=== PATIENT | female | born 1940 | race Caucasian/White ===

== ENCOUNTER → 2016-08-15 | Outpatient (CLI) | payer MEDICARE ==
--- NOTE | 2016-08-15 14:56 | XR ---
EXAMINATION TYPE: XR chest 2V DATE OF EXAM: 08/15/2016 2:42 PM HISTORY: J20.9 Acute bronchitis. REFERENCE: Previous study dated 01/09/2016. FINDINGS: There is a questionable early infiltrate in the right lower lobe. The lungs are otherwise c lear. Pleural spaces are clear. Heart size is upper limits of normal. IMPRESSION: 1. BORDERLINE CARDIOMEGALY. 2. EARLY INFILTRATE, RIGHT LOWER LOBE.
== END | disposition home or self-care (01) ==
LOC: RADXRMAIN 14:28
PROVIDERS: ATTEND Family Medicine
DX: R91.8 Other nonspecific abnormal finding of lung field (principal); I51.7 Cardiomegaly
CPT/HCPCS: 71020

== ENCOUNTER 2016-08-21 15:47 | Inpatient (IN) | payer MEDICARE ==
[2016-08-21] MEDS ORDERED: IPRATROPIUM 0.5 MG/2.5 ML NEBU INHALATION STA (16:35)
[2016-08-21] MEDS ORDERED: ALBUTEROL NEBULIZED 2.5 MG/3 ML INHALATION STA (16:35)
[2016-08-21] MEDS ORDERED: SODIUM CHLORIDE 0.9% 1,000 ML IV STA ×2 (16:35)
--- NOTE | 2016-08-21 16:38 | ED ---
General Adult HPI <Nathaniel Yuan - Last Filed: 08/21/16 19:14> - General Source: patient, RN notes reviewed, old records reviewed Mode of arrival: ambulatory Limitations: no limitations <Ector Gray - Last Filed: 08/22/16 07:48> - General Chief complaint: Shortness of Breath Stated complaint: Dehydration/sob Time Seen by Provider: 08/21/16 16:29 - History of Present Illness Initial comments: This is a 75-year-old female here for evaluation. This patient comes in the ER for evaluation shortness of cough congestion chest pain. Patient was seen in outpatient basis for similar symptoms twice, first time she got worse the second time she was diagnosed with pneumonia and continue to get worse. Patient is still feeling short of breath with chest pain. Patient has no fevers no known congestion, but just increasing shortness of breath not feeling well and chest pain. (Ector Gray) - Related Data Home Medications Medication Instructions Recorded Confirmed Aspirin 81 mg PO DAILY 11/20/13 08/21/16 Metoprolol Succinate [Toprol XL] 25 mg PO DAILY 11/20/13 08/21/16 Temazepam [Restoril] 30 mg PO HS PRN 11/20/13 08/21/16 ALPRAZolam [Xanax] 0.5 mg PO DAILY PRN 03/19/15 08/21/16 Cholecalciferol [Vitamin D3] 1,000 unit PO DAILY 03/19/15 08/21/16 Vit C/E/Zn/Coppr/Lutein/Zeaxan 1 cap PO DAILY 03/19/15 08/21/16 [Preservision Areds 2 Softgel] Albuterol Sulfate [Proair Hfa] 2 puff INHALATION RT-Q6H PRN 03/06/16 08/21/16 Ibuprofen [Motrin] 800 mg PO Q8H PRN 08/21/16 08/21/16 sitaGLIPtin PHOS/metFORMIN HCL 1 tab PO BID 08/21/16 08/21/16 [Janumet 50-500 mg Tablet] Allergies Allergy/AdvReac Type Severity Reaction Status Date / Time shellfish derived [Shellfish] Allergy Severe Anaphylaxis Verified 08/21/16 16:43 morphine Allergy Intermediate Rash/Hives Verified 08/21/16 16:43 cefuroxime axetil Allergy Unknown Verified 08/21/16 16:43 [From Ceftin] codeine Allergy Unknown Verified 08/21/16 16:43 erythromycin base Allergy Unknown Verified 08/21/16 16:43 [From E-Mycin] fentanyl Allergy Unknown Verified 08/21/16 16:43 hydrocodone bitartrate Allergy Unknown Verified 08/21/16 16:43 [From Lortab] lisinopril Allergy anxiety Verified 08/21/16 16:43 meperidine HCl [From Demerol] Allergy Unknown Verified 08/21/16 16:43 milk Allergy Unknown Verified 08/21/16 16:43 oxycodone HCl [From Percocet] Allergy Unknown Verified 08/21/16 16:43 SEAFOOD Allergy Severe Anaphylaxis Uncoded 08/21/16 15:54 Review of Systems ROS Other: All systems not noted in ROS Statement are negative. <Nathaniel Yuan - Last Filed: 08/21/16 19:14> ROS Other: All systems not noted in ROS Statement are negative. <Ector Gray - Last Filed: 08/22/16 07:48> ROS Statement: Those systems with pertinent positive or pertinent negative responses have been documented in the HPI. Past Medical History Past Medical History: Diabetes Mellitus, Hypertension Additional Past Medical History / Comment(s): NEURALGIA, leaky heart valves, heart murmer, SOB, hiatal hernia, arthritis, shingles History of Any Multi-Drug Resistant Organisms: None Reported Past Surgical History: Back Surgery, Heart Catheterization Additional Past Surgical History / Comment(s): mult back surgeries-back and neck fusions, marlene cataracts Past Anesthesia/Blood Transfusion Reactions: Previous Problems w/ Anesthesia Additional Past Anesthesia/Blood Transfusion Reaction / Comment(s): stopped breathing during back surgery from being "over medicated" - had to get narcan Past Psychological History: Anxiety Smoking Status: Former smoker Past Alcohol Use History: None Reported Past Drug Use History: None Reported - Past Family History Brother(s) Family Medical History: Cancer <Ector Gray - Last Filed: 08/22/16 07:48> General Exam Limitations: no limitations General appearance: alert, in no apparent distress Head exam: Present: atraumatic, normocephalic, normal inspection Eye exam: Present: normal appearance, PERRL, EOMI. Absent: scleral icterus, conjunctival injection, periorbital swelling ENT exam: Present: normal exam, mucous membranes moist Neck exam: Present: normal inspection. Absent: tenderness, meningismus, lymphadenopathy Respiratory exam: Present: normal lung sounds bilaterally. Absent: respiratory distress, wheezes, rales, rhonchi, stridor Cardiovascular Exam: Present: regular rate, normal rhythm, normal heart sounds. Absent: systolic murmur, diastolic murmur, rubs, gallop, clicks GI/Abdominal exam: Present: soft, normal bowel sounds. Absent: distended, tenderness, guarding, rebound, rigid Extremities exam: Present: normal inspection, full ROM, normal capillary refill. Absent: tenderness, pedal edema, joint swelling, calf tenderness Back exam: Present: normal inspection Neurological exam: Present: alert, oriented X3, CN II-XII intact Psychiatric exam: Present: normal affect, normal mood Skin exam: Present: warm, dry, intact, normal color. Absent: rash <Ector Gray - Last Filed: 08/22/16 07:48> Course <Nathaniel Yuan - Last Filed: 08/21/16 19:14> <Ector Gray - Last Filed: 08/22/16 07:48> Vital Signs 08/21/16 08/21/16 08/21/16 15:49 16:42 17:05 Temperature 97.5 F L Pulse Rate 56 L 102 H Respiratory 18 18 Rate Blood Pressure 109/56 O2 Sat by Pulse 97 Oximetry 08/21/16 08/21/16 08/21/16 17:20 17:44 19:27 Temperature Pulse Rate 100 102 H 103 H Respiratory 16 Rate Blood Pressure 142/58 O2 Sat by Pulse 95 Oximetry - Reevaluation(s) Reevaluation #1: 08/21/16 18:30 Patient's medical record is reviewed including x-ray Patient is having improvement in symptoms and control going. Treatment (Ector Gray) EKG Findings - EKG Comments: EKG Findings:: EKG shows normal sinus rhythm a monitor, VA 146, QRS 78, QTC 461 <Ector Gray - Last Filed: 08/22/16 07:48> Medical Decision Making - Lab Data Result diagrams: 08/21/16 16:40 08/21/16 16:40 <Nathaniel Yuan - Last Filed: 08/21/16 19:14> - Lab Data Result diagrams: 08/21/16 16:40 08/21/16 16:40 - Radiology Data Radiology results: report reviewed (CT chest is positive for pneumonia), image reviewed <Ector Gray - Last Filed: 08/22/16 07:48> - Medical Decision Making 75 year for outpatient field treatment of pneumonia, will be started on broad- spectrum antibiotics, CT negative for PE, patient is in no acute respiratory distress. (Ector Gray) - Lab Data Lab Results 08/21/16 08/21/16 08/21/16 Range/Units 16:40 16:40 16:40 WBC 7.3 (3.8-10.6) k/uL RBC 5.48 H (3.80-5.40) m/uL Hgb 16.3 H (11.4-16.0) gm/dL Hct 49.3 H (34.0-46.0) % MCV 89.9 (80.0-100.0) fL MCH 29.8 (25.0-35.0) pg MCHC 33.1 (31.0-37.0) g/dL RDW 13.8 (11.5-15.5) % Plt Count 306 (150-450) k/uL Neutrophils % 72 % Lymphocytes % 19 % Monocytes % 5 % Eosinophils % 1 % Basophils % 1 % Neutrophils # 5.3 (1.3-7.7) k/uL Lymphocytes # 1.4 (1.0-4.8) k/uL Monocytes # 0.4 (0-1.0) k/uL Eosinophils # 0.0 (0-0.7) k/uL Basophils # 0.1 (0-0.2) k/uL PT (9.0-12.0) sec INR (<1.1) APTT (22.0-30.0) sec D-Dimer (<0.60) mg/L FEU Sodium 139 (137-145) mmol/L Potassium 4.2 (3.5-5.1) mmol/L Chloride 102 (98-107) mmol/L Carbon Dioxide 26 (22-30) mmol/L Anion Gap 11 mmol/L BUN 21 H (7-17) mg/dL Creatinine 0.79 (0.52-1.04) mg/dL Est GFR (MDRD) Af Amer >60 (>60 ml/min/1.73 sqM) Est GFR (MDRD) Non-Af >60 (>60 ml/min/1.73 sqM) Glucose 123 H (74-99) mg/dL Estimated Ave Glu mg/dL mg/dL Hemoglobin A1c (4.2-6.1) % Calcium 9.5 (8.4-10.2) mg/dL Magnesium 1.8 (1.6-2.3) mg/dL Total Bilirubin 0.7 (0.2-1.3) mg/dL AST 18 (14-36) U/L ALT 28 (9-52) U/L Alkaline Phosphatase 62 (38-126) U/L Total Creatine Kinase 22 L (30-135) U/L CK-MB (CK-2) 0.4 (0.0-2.4) ng/mL CK-MB (CK-2) Rel Index 1.8 Troponin I <0.012 (0.000-0.034) ng/mL NT-Pro-B Natriuret Pep pg/mL Total Protein 7.1 (6.3-8.2) g/dL Albumin 3.7 (3.5-5.0) g/dL 08/21/16 08/21/16 08/21/16 Range/Units 16:40 16:40 16:40 WBC (3.8-10.6) k/uL RBC (3.80-5.40) m/uL Hgb (11.4-16.0) gm/dL Hct (34.0-46.0) % MCV (80.0-100.0) fL MCH (25.0-35.0) pg MCHC (31.0-37.0) g/dL RDW (11.5-15.5) % Plt Count (150-450) k/uL Neutrophils % % Lymphocytes % % Monocytes % % Eosinophils % % Basophils % % Neutrophils # (1.3-7.7) k/uL Lymphocytes # (1.0-4.8) k/uL Monocytes # (0-1.0) k/uL Eosinophils # (0-0.7) k/uL Basophils # (0-0.2) k/uL PT 10.9 (9.0-12.0) sec INR 1.1 (<1.1) APTT 22.9 (22.0-30.0) sec D-Dimer 1.72 H (<0.60) mg/L FEU Sodium (137-145) mmol/L Potassium (3.5-5.1) mmol/L Chloride (98-107) mmol/L Carbon Dioxide (22-30) mmol/L Anion Gap mmol/L BUN (7-17) mg/dL Creatinine (0.52-1.04) mg/dL Est GFR (MDRD) Af Amer (>60 ml/min/1.73 sqM) Est GFR (MDRD) Non-Af (>60 ml/min/1.73 sqM) Glucose (74-99) mg/dL Estimated Ave Glu mg/dL 154 mg/dL Hemoglobin A1c 7.0 H (4.2-6.1) % Calcium (8.4-10.2) mg/dL Magnesium (1.6-2.3) mg/dL Total Bilirubin (0.2-1.3) mg/dL AST (14-36) U/L ALT (9-52) U/L Alkaline Phosphatase (38-126) U/L Total Creatine Kinase (30-135) U/L CK-MB (CK-2) (0.0-2.4) ng/mL CK-MB (CK-2) Rel Index Troponin I (0.000-0.034) ng/mL NT-Pro-B Natriuret Pep 409 pg/mL Total Protein (6.3-8.2) g/dL Albumin (3.5-5.0) g/dL Disposition <Nathaniel Yuan - Last Filed: 08/21/16 19:14> <Ector Gray - Last Filed: 08/22/16 07:48> Clinical Impression: Pneumonia, Failure of outpatient treatment Disposition: ADMITTED IP TO THIS HOSP Condition: Fair
[2016-08-21 17:07] LABS: Basophils # (A) 0.1 k/uL (0-0.2); Basophils % (A) 1 %; CH 30.5; Eosinophils % (A) 1 %; HCT 49.3 % (34.0-46.0); HDW 3.01; HGB 16.3 gm/dL (11.4-16.0); Luc # (Auto) 0.19; Luc % (Auto) 3; Lymphocytes # (A) 1.4 k/uL (1.0-4.8); Lymphocytes % (A) 19 %; MCH 29.8 pg (25.0-35.0); MCHC 33.1 g/dL (31.0-37.0); MCV 89.9 fL (80.0-100.0); Mean Platelet Volume 8.3; Monocytes # (A) 0.4 k/uL (0-1.0); Monocytes % (A) 5 %; Neutrophils # (A) 5.3 k/uL (1.3-7.7); Neutrophils % (A) 72 %; RBC 5.48 m/uL (3.80-5.40); RDW 13.8 % (11.5-15.5); WBC 7.3 k/uL (3.8-10.6); WBC (Perox) 7.06
[2016-08-21 17:20] LABS: ALT 28 U/L (9-52); AST 18 U/L (14-36); Alkaline Phosphatase 62 U/L (38-126); Anion Gap 11 mmol/L; Blood Urea Nitrogen 21 mg/dL (7-17); Calcium 9.5 mg/dL (8.4-10.2); Carbon Dioxide 26 mmol/L (22-30); Chloride 102 mmol/L (98-107); Glucose 123 mg/dL (74-99); INR 1.1 (<1.1); Magnesium 1.8 mg/dL (1.6-2.3); Non-African American GFR(MDRD) >60 (>60 ml/min/1.73 sqM); Partial Thromboplastin Time 22.9 sec (22.0-30.0); Potassium 4.2 mmol/L (3.5-5.1); Prothrombin Time 10.9 sec (9.0-12.0); Sodium 139 mmol/L (137-145); Total Bilirubin 0.7 mg/dL (0.2-1.3); Total Protein 7.1 g/dL (6.3-8.2)
[2016-08-21 17:26] LABS: Creatine Kinase 22 U/L (30-135)
[2016-08-21] MEDS ORDERED: RX INFO: IV CONTRAST WAS GIVEN 1 EACH MISC MISCELLANE PRN (17:26)
[2016-08-21 17:39] LABS: Creatine Kinase MB 0.4 ng/mL (0.0-2.4); Troponin I <0.012 ng/mL (0.000-0.034)
[2016-08-21] MEDS ORDERED: LEVOFLOXACIN 750MG-D5W PMX 750 MG in DEXTROSE/WATER 1 150ML.BAG IVPB STA (18:05)
[2016-08-21] MEDS ORDERED: PIPERACILLIN-TAZOBACTAM 3.375 GM in DEXTROSE/WATER 1 50ML.BAG IVPB STA (18:05)
[2016-08-21] MEDS ORDERED: PNEUMONIA PROTOCOL UTILIZED 1 EACH MISC PO PRN (18:05)
[2016-08-21] MEDS ORDERED: SODIUM CHLORIDE 0.9% 1,000 ML IV SCH (18:15)
--- NOTE | 2016-08-21 18:54 | CT ---
EXAMINATION TYPE: CT angio chest DATE OF EXAM: 08/21/2016 6:10 PM COMPARISON: Chest radiograph dated 08/15/2016. HISTORY: Patient having shortness of breath. CT DLP: 386.7 mGycm. Automated Exposure Control for Dose Reduction was Utilized. CONTRAST: CTA scan of the thorax is performed with IV Contrast, patient injected with 100 mL of Omnipaque 350, pulmonary embolism protocol. MIP Images are created on CT scanner and reviewed. FINDINGS: There is a patchy opacity within the medial right upper lung as well as peribronchial thickening with in the right lower lobe along the right hemidiaphragm and right lower lobe focal consolidation at the most inferior aspect of the right lower lobe the left lung is clear without evidence of focal consol idation or pleural effusion other than a small degree of left basilar atelectasis. Bochdalek hernia i s noted on the left. There is no evidence of pulmonary embolism. The heart is mildly enlarged. No pericardial effusion is seen. Mild atheromatous changes are seen of the aortic arch and descending thoracic aorta as well as visualized portions of abdominal aorta. Hypoattenuated hepatic lesions are seen both within the right lobe of the liver and the left lobe of the liver measuring 1.6 cm and 1.3 cm respectively. These are incompletely characterized as they are not entirely compatible with simple cysts and warrant further evaluation with nonemergent dynamic con trast-enhanced the of the abdomen (hepatic mass protocol). IMPRESSION: 1. Multifocal right lung patchy opacities most confluent within the right lower lobe representing mul tifocal pneumonia. 2. Incompletely characterized hypoattenuating hepatic lesions. Nonemergent dynamic enhanced CT abdome n (hepatic mass protocol) is recommended for further evaluation. 3. No evidence of pulmonary embolus.
[2016-08-21] MEDS ORDERED: ALBUTEROL NEBULIZED 2.5 MG/3 ML INHALATION PRN (20:24)
[2016-08-21] MEDS ORDERED: IBUPROFEN 600 MG TAB PO PRN (20:55)
[2016-08-21] MEDS: methylPREDNISolone SOD SUCCI 125 MG/2 ML VIAL IV SCH (21:16)
[2016-08-21] MEDS: NYSTATIN 100,000 UNIT/ML SUSP 500,000 UNIT/5 ML CUP PO SCH (21:16)
[2016-08-21] MEDS: valACYclovir 500 MG TAB PO SCH (21:16)
[2016-08-21] MEDS: metFORMIN 500 MG TAB PO SCH (21:17)
[2016-08-21] MEDS: INSULIN LISPRO (humaLOG) 300 UNIT/3 ML VIAL SQ SCH (21:20)
[2016-08-21] MEDS: IPRATROPIUM-ALBUTEROL 3 ML NEB INHALATION SCH (21:29)
[2016-08-21 21:44] LABS: Glucose,Whole Blood 155 mg/dL (75-99)
--- NOTE | 2016-08-21 22:45 | HP ---
DATE OF ADMISSION: 08/21/2016 CHIEF COMPLAINTS: Cough and sputum as well as tiredness and weakness. HISTORY OF PRESENT ILLNESS: This 75-year-old woman with a past medical history of multiple medical problems, including diabetes mellitus, hypertension, history of leak valve, heart murmur, shortness of breath, history of hiatal hernia, history of shingles, history of DJD, history of back surgery, history of cardiac catheterization, being followed by Keli Vargas in the outpatient setting, was not feeling well over the past few weeks. The patient initially had wheezing and subsequently patient was given a Medrol Dosepak, with lack of improvement. The patient was given antibiotics as well. The patient was also given a steroid short and antibiotic in the outpatient setting. The patient was suspected to have pneumonia on the right side, as per the most recent chest x-ray. Because of lack of improvement, increasing cough and shortness of breath and other symptoms, the patient came to [facility] and was admitted for further evaluation and treatment. Multifocal pneumonia in the right side was shown on the CT scan of the chest. D-dimer was elevated. There is no evidence of pulmonary embolism. There is no history of any fever, rigor, or chills. No history of any headache, loss of consciousness, seizures. PAST MEDICAL HISTORY: 1. History of diabetes mellitus. 2. Hypertension. 3. Neuralgia. 4. Leaky valves. 5. DJD. 6. Anxiety. HOME MEDICATIONS: 1. Janumet 1 tablet p.o. b.i.d. 2. Vitamin E/zinc 1 p.o. daily. 3. Restoril 30 mg at bedtime p.r.n. 4. Toprol XL 25 mg p.o. daily. 5. Motrin 800 mg q.8 p.r.n. 6. Vitamin D3 1000 units daily. 7. Aspirin 81 mg p.o. daily. 8. ProAir HFA 2 puffs q.6 p.r.n. 9. Xanax 0.5 p.r.n. ALLERGIES: 1. SHELLFISH. 2. MORPHINE. 3. CEFUROXIME. 4. CODEINE. 5. ERYTHROMYCIN. 6. FENTANYL. 7. HYDROCODONE. 8. LISINOPRIL. 9. MEPERIDINE. 10. MILK. 11. OXYCODONE. 12. SEAFOOD. FAMILY HISTORY: History of cancer in the family. SOCIAL HISTORY: Previous history of smoking. No current smoking or alcohol intake. REVIEW OF SYSTEMS: ENT: Diminished hearing. Diminished vision. Otherwise, herpes labialis present, extensive. CARDIOVASCULAR: No angina, palpitations. Otherwise as mentioned earlier. RESPIRATORY SYSTEM: As mentioned earlier. GI: No nausea, vomiting : No dysuria. NERVOUS SYSTEM: No numbness, weakness. ALLERGY/IMMUNOLOGY: As mentioned earlier. HEMATOLOGY/ONCOLOGY: No history of anemia. ENDOCRINE: History of diabetes. No hypothyroidism. CONSTITUTIONAL: As mentioned earlier. DERMATOLOGY: As mentioned earlier. RHEUMATOLOGY: Negative. PSYCHIATRY: As mentioned earlier. PHYSICAL EXAMINATION: Patient alert and oriented x3. Pulse is 102, blood pressure 142/58, respiration 16, temperature normal, pulse ox 95% on 2 L. HEENT: Conjunctivae normal. Oral mucosa moist. Extensive herpes labialis present. NECK: No jugular venous distention. No carotid bruit. No lymph node enlargement. CARDIOVASCULAR SYSTEM: S1, S2 muffled. No S3. No S4. RESPIRATORY: Breath sounds diminished at the bases. Bilateral scattered rhonchi and crackles. Expiratory wheezing also present. ABDOMEN: Soft, nontender. No mass palpable. LEGS: No edema. No swelling. NERVOUS SYSTEM: Higher functions as mentioned earlier. Moves all 4 limbs. No focal motor or sensory deficit. LYMPHATICS: No lymph node palpable in neck, axillae or groin. SKIN: No ulcer, rash, bleeding. LABS: WBC 7.3, hemoglobin 16.3. D-dimer is 1.72. Glucose 123. Creatine kinase 22. ASSESSMENT: 1. Chronic obstructive pulmonary disease, acute exacerbation, with multifocal right lower lobe pneumonia, possibly Gram-negative. 2. Rule out influenza. 3. Mild polycythemia. 4. Increased D-dimer with no evidence of pulmonary embolus. 5. Increased random blood sugar. 6. History of diabetes mellitus, type 2. 7. Hypertension. 8. History of neuralgia. 9. History of leaky heart valves. 10. History of hiatal hernia. 11. History of degenerative joint disease. 12. History of shingles. 13. History of back surgery, degenerative joint disease. 14. History of cardiac catheterization. 15. History of anxiety. RECOMMENDATIONS AND DISCUSSION: In this 75-year-old woman who presented with multiple complex medical issues, we will monitor the patient closely, continue the current medication, continue with symptomatic treatment. Otherwise, continue with bronchodilators, antibiotics. We will also follow closely with Dr. Nelson. I would recommend resuming the home medications. DVT prophylaxis. Guarded prognosis because of multiple complex medical issues. Further recommendations to follow. A copy of this dictation is being forwarded to Dr. Meyers, who is the primary physician. LES
[2016-08-21] MEDS: TEMAZEPAM 15 MG CAP PO PRN (23:01)
[2016-08-22] MEDS: PIPERACILLIN-TAZOBACTAM 3.375 GM in DEXTROSE/WATER 1 50ML.BAG IVPB SCH ×4 (00:28→23:31)
[2016-08-22] MEDS: ALPRAZolam 0.25 MG TAB PO PRN ×2 (04:45→21:34)
[2016-08-22] MEDS: methylPREDNISolone SOD SUCCI 125 MG/2 ML VIAL IV SCH ×4 (06:21→23:31)
[2016-08-22 07:34] LABS: Glucose,Whole Blood 250 mg/dL (75-99)
[2016-08-22] MEDS: PANTOPRAZOLE 40 MG TABLET PO SCH (08:12)
[2016-08-22] MEDS: INSULIN LISPRO (humaLOG) 300 UNIT/3 ML VIAL SQ SCH ×4 (08:12→21:27)
[2016-08-22] MEDS: ASPIRIN 81 MG CHEW PO SCH (08:13)
[2016-08-22] MEDS: CHOLECALCIFEROL 1,000 UNIT TAB PO SCH (08:13)
[2016-08-22] MEDS: ENOXAPARIN 40 MG/0.4 ML SYRINGE SQ SCH (08:13)
[2016-08-22] MEDS: valACYclovir 500 MG TAB PO SCH ×2 (08:14→20:08)
[2016-08-22] MEDS: metFORMIN 500 MG TAB PO SCH (08:14)
[2016-08-22] MEDS: METOPROLOL SUCCINATE (ER) 25 MG TAB.ER.24H PO SCH (08:14)
[2016-08-22] MEDS: NYSTATIN 100,000 UNIT/ML SUSP 500,000 UNIT/5 ML CUP PO SCH ×4 (08:14→21:28)
--- NOTE | 2016-08-22 08:27 | XR ---
EXAMINATION TYPE: XR chest 2V DATE OF EXAM: 08/22/2016 7:27 AM COMPARISON: Cough possible pneumonia TECHNIQUE: PA and lateral views submitted. HISTORY: 08/16/2015 FINDINGS: Elevation the right hemidiaphragm seen. Heart size is prominent. There is arthropathy of the shoulder s. No pneumothorax. Degenerative change of the spine. Tiny right-sided pleural effusion suspected. IMPRESSION: 1. Subsegmental consolidation and tiny effusion on the right. Correlate clinically for pneumonia.
[2016-08-22 08:54] LABS: Basophils % (A) 0 %; CH 29.9; CHCM 33.3; Eosinophils % (A) 0 %; HCT 42.8 % (34.0-46.0); HGB 13.8 gm/dL (11.4-16.0); Luc # (Auto) 0.06; Luc % (Auto) 1; Lymphocytes # (A) 0.5 k/uL (1.0-4.8); Lymphocytes % (A) 4 %; MCHC 32.2 g/dL (31.0-37.0); MCV 90.1 fL (80.0-100.0); Mean Platelet Volume 7.3; Monocytes # (A) 0.2 k/uL (0-1.0); Monocytes % (A) 2 %; Neutrophils # (A) 9.7 k/uL (1.3-7.7); Neutrophils % (A) 94 %; RBC 4.75 m/uL (3.80-5.40); RDW 13.7 % (11.5-15.5); WBC 10.4 k/uL (3.8-10.6); WBC (Perox) 10.72
[2016-08-22] MEDS ORDERED: LINAGLIPTIN 5 MG TABLET PO SCH (09:00)
[2016-08-22] MEDS: BUDESONIDE 1 MG/2 ML NEBU INHALATION SCH ×2 (09:02→19:14)
[2016-08-22] MEDS: FORMOTEROL FUMARATE 20 MCG/2 ML NEBU INHALATION SCH ×2 (09:02→19:14)
[2016-08-22] MEDS: IPRATROPIUM-ALBUTEROL 3 ML NEB INHALATION SCH ×4 (09:02→19:14)
[2016-08-22 09:13] LABS: Anion Gap 12 mmol/L; Blood Urea Nitrogen 16 mg/dL (7-17); Calcium 8.7 mg/dL (8.4-10.2); Carbon Dioxide 23 mmol/L (22-30); Chloride 104 mmol/L (98-107); Glucose 246 mg/dL (74-99); Non-African American GFR(MDRD) >60 (>60 ml/min/1.73 sqM); Sodium 139 mmol/L (137-145)
--- NOTE | 2016-08-22 09:48 | ECHOF ---
Referral Reason:chf MEASUREMENTS -------- HEIGHT: 157.5 cm WEIGHT: 73.5 kg BP: 135/76 RVIDd: 2.7 cm (< 3.3) IVSd: 1.4 cm (0.6 - 1.1) LVIDd: 3.6 cm (3.9 - 5.3) LVPWd: 1.3 cm (0.6 - 1.1) IVSs: 1.5 cm LVIDs: 2.6 cm LVPWs: 2.1 cm LA Diam: 2.8 cm (2.7 - 3.8) LAESV Index (A-L): 15.76 ml/m Ao Diam: 2.6 cm (2.0 - 3.7) AV Cusp: 1.6 cm (1.5 - 2.6) LA Diam: 2.3 cm (2.7 - 3.8) MV EXCURSION: 10.412 mm (> 18.000) MV EF SLOPE: 30 mm/s (70 - 150) EPSS: 0.4 cm MV E Jorje: 0.56 m/s MV DecT: 210 ms MV A Jorje: 0.86 m/s MV E/A Ratio: 0.64 RAP: 5.00 mmHg RVSP: 20.47 mmHg FINDINGS -------- Sinus rhythm. This was a technically adequate study. There is moderate concentric left ventricular hypertrophy. Overall left ventricular systolic function is normal with, an EF between 55 - 60 %. The right ventricle is normal in size. Normal LA size by volume 22+/-6 ml/m2. The right atrium is normal in size. Aortic valve is trileaflet and is mildly thickened. There is no evidence of aortic regurgitation. The mitral valve leaflets are mildly thickened. Mild mitral annular calcification present. There is trace mitral regurgitation. Mild tricuspid regurgitation present. Right ventricular systolic pressure is normal at < 35 mmHg. Pulmonic valve appears structurally normal. The aortic root size is normal. Normal inferior vena cava with normal inspiratory collapse consistent with estimated right atrial pressure of 5 mmHg. Echo free space may represent effusion or a pericardial fat pad. CONCLUSIONS -------- 1. Sinus rhythm. 2. The mitral valve leaflets are mildly thickened. 3. Mild mitral annular calcification present. 4. There is trace mitral regurgitation. 5. Mild tricuspid regurgitation present. 6. Right ventricular systolic pressure is normal at < 35 mmHg. 7. Pulmonic valve appears structurally normal. 8. The aortic root size is normal. 9. Normal inferior vena cava with normal inspiratory collapse consistent with estimated right atrial pressure of 5 mmHg. 10. Echo free space may represent effusion or a pericardial fat pad. 11. This was a technically adequate study. 12. There is moderate concentric left ventricular hypertrophy. 13. Overall left ventricular systolic function is normal with, an EF between 55 - 60 %. 14. The right ventricle is normal in size. 15. Normal LA size by volume 22+/-6 ml/m2. 16. The right atrium is normal in size. 17. Aortic valve is trileaflet and is mildly thickened. 18. There is no evidence of aortic regurgitation. 4[employer] TEACHER: Cherelle Ramírez RDCS
[2016-08-22] MEDS: KETOROLAC 30 MG/ML 1 ML VIAL IVP PRN ×3 (09:52→22:10)
[2016-08-22] MEDS: THIAMINE 100 MG TAB PO SCH (12:13)
[2016-08-22] MEDS: MULTIVITAMINS, THERA 1 EACH TAB PO SCH (12:13)
[2016-08-22] MEDS: FOLIC ACID 1 MG TAB PO SCH (12:13)
[2016-08-22 12:18] LABS: Glucose,Whole Blood 203 mg/dL (75-99)
[2016-08-22] MEDS ORDERED: MD COMMUNICATION TO PHARMACY 1 EACH MISC PO PRN (14:12)
[2016-08-22 17:13] LABS: Glucose,Whole Blood 231 mg/dL (75-99)
--- NOTE | 2016-08-22 17:22 | P.CNPUL ---
History of Present Illness Consult date: 08/22/16 Reason for consult: pneumonia History of present illness: I was asked to evaluate this 75-year-old female patient for symptoms of pneumonia. Note that the patient was having some increased cough and congestion and dyspnea for the past 10 days. She was being treated by Keli Vargas NP, and initially she was given a course of amoxicillin followed by a Medrol Dosepak. Her symptoms remain unchanged and the patient was still having the same symptomatology and she was given Levaquin. During this time, the patient reported limited improvement if any and she also developed some herpetic lesions in her upper lips. No chills. No fever. No pleurisy. No chest pain. No trauma to the chest. No falls. No nausea. No vomiting. No diarrhea. No abdominal pain. No change in mental status. Ultimately the patient decided to come in to the hospital for further evaluation. The chest x-rays were done in the hospital showed significant elevation of the right hemidiaphragm which is a new findings compared to the previous chest x-rays. A CAT scan of the chest was also done and this is a CT angios done to rule out pulmonary embolism. The findings showed a patchy opacity within the medial right upper lobe of the lung with peribronchial thickening. However, the major abnormalities that was noted is in the right lower lobe where the right hemidiaphragm is felt to be quite elevated and that it probably some residual consolidation within the right lower lobe area. I do suspect an underlying diaphragmatic weakness/paralysis that has developed recently knowing that this abnormality was not present on previous x-rays that were done earlier on the same patient. For now, the patient has no other complaints. Her white cell count is at 10.4. She was started on IV Zosyn. She was started on bronchodilators. She was started on systemic steroids. She was started on Valtrex regarding her herpetic labial lesions. Pulmonate consultation was requested for further advice. Influenza A and B screen was negative. Review of Systems for review of system was done and the positive findings are almost above in history of present illness Past Medical History Past Medical History: Diabetes Mellitus, Hypertension Additional Past Medical History / Comment(s): Obesity, hiatal hernia, shingles, diabetes mellitus, hypertension, degenerative arthritis, generalized anxiety disorder. History of Any Multi-Drug Resistant Organisms: None Reported Past Surgical History: Back Surgery, Heart Catheterization Additional Past Surgical History / Comment(s): mult back surgeries-back and neck fusions, epidural spinal shots for pain control, bilateral cataract surgeries Past Anesthesia/Blood Transfusion Reactions: Previous Problems w/ Anesthesia Additional Past Anesthesia/Blood Transfusion Reaction / Comment(s): stopped breathing during back surgery from being "over medicated" - had to get narcan Past Psychological History: Anxiety Smoking Status: Former smoker Past Alcohol Use History: None Reported Additional Past Alcohol Use History / Comment(s): started smoking at age 17, smoked 1 pp week, quit 1989 Past Drug Use History: None Reported - Past Family History Brother(s) Family Medical History: Cancer Medications and Allergies Home Medications Medication Instructions Recorded Confirmed Type Aspirin 81 mg PO DAILY 11/20/13 08/21/16 History Metoprolol Succinate [Toprol XL] 25 mg PO DAILY 11/20/13 08/21/16 History Temazepam [Restoril] 30 mg PO HS PRN 11/20/13 08/21/16 History ALPRAZolam [Xanax] 0.5 mg PO DAILY PRN 03/19/15 08/21/16 History Cholecalciferol [Vitamin D3] 1,000 unit PO DAILY 03/19/15 08/21/16 History Vit C/E/Zn/Coppr/Lutein/Zeaxan 1 cap PO DAILY 03/19/15 08/21/16 History [Preservision Areds 2 Softgel] Albuterol Sulfate [Proair Hfa] 2 puff INHALATION RT-Q6H PRN 03/06/16 08/21/16 History Ibuprofen [Motrin] 800 mg PO Q8H PRN 08/21/16 08/21/16 History sitaGLIPtin PHOS/metFORMIN HCL 1 tab PO DAILY 08/21/16 08/22/16 History [Janumet 50-500 mg Tablet] Allergies Allergy/AdvReac Type Severity Reaction Status Date / Time shellfish derived [Shellfish] Allergy Severe Anaphylaxis Verified 08/21/16 16:43 morphine Allergy Intermediate Rash/Hives Verified 08/21/16 16:43 cefuroxime axetil Allergy Unknown Verified 08/21/16 16:43 [From Ceftin] codeine Allergy Unknown Verified 08/21/16 16:43 erythromycin base Allergy Unknown Verified 08/21/16 16:43 [From E-Mycin] fentanyl Allergy Unknown Verified 08/21/16 16:43 hydrocodone bitartrate Allergy Unknown Verified 08/21/16 16:43 [From Lortab] lisinopril Allergy anxiety Verified 08/21/16 16:43 meperidine HCl [From Demerol] Allergy Unknown Verified 08/21/16 16:43 milk Allergy Unknown Verified 08/21/16 16:43 oxycodone HCl [From Percocet] Allergy Unknown Verified 08/21/16 16:43 SEAFOOD Allergy Severe Anaphylaxis Uncoded 08/21/16 15:54 Physical Exam Vitals: Vital Signs Temp Pulse Pulse Resp BP BP Pulse Ox 08/22/16 15:45 72 08/22/16 15:31 72 08/22/16 15:00 97.4 F L 72 18 122/67 95 08/22/16 12:29 78 08/22/16 12:19 76 08/22/16 07:00 97.2 F L 74 18 119/62 94 L 08/22/16 00:15 100 08/22/16 00:04 100 08/21/16 20:40 96.9 F L 117 H 22 135/76 94 L 08/21/16 19:27 103 H 16 142/58 95 Intake and Output 08/22/16 08/22/16 08/22/16 06:59 14:59 22:59 Intake Total 500 200 Output Total 700 200 Balance -200 0 Intake: Oral 500 200 Output: Urine 700 200 Other: Voiding Method Toilet Toilet # Voids 3 # Bowel Movements 0 Weight 73.482 kg Patient Weight 08/23/16 06:59 Weight 73.482 kg Head exam was generally normal. There was no scleral icterus or corneal arcus. Mucous membranes were moist.Neck was supple and without jugular venous distension, thyromegaly, or carotid bruits. Carotids were easily palpable bilaterally. There was no adenopathy.lung sounds are diminished in the right lung base compared to the left and there is some dullness to percussion.Cardiac exam revealed the PMI to be normally situated and sized. The rhythm was regular and no extrasystoles were noted during several minutes of auscultation. The first and second heart sounds were normal and physiologic splitting of the second heart sound was noted. There were no murmurs, rubs, clicks, or gallops.Abdominal exam revealed normal bowel sounds. The abdomen was soft, non- tender, and without masses, organomegaly, or appreciable enlargement of the abdominal aorta.Examination of the extremities revealed easily palpable radial, femoral and pedal pulses. There was no cyanosis, clubbing or edema. Results - Laboratory Findings CBC and BMP: 08/22/16 08:29 08/22/16 08:29 PT/INR, D-dimer PT 10.9 sec (9.0-12.0) 08/21/16 16:40 INR 1.1 (<1.1) 08/21/16 16:40 D-Dimer 1.72 mg/L FEU (<0.60) H 08/21/16 16:40 Abnormal lab findings: Abnormal Labs 08/21/16 08/22/16 08/22/16 21:18 07:31 08:29 Neutrophils # 9.7 H Lymphocytes # 0.5 L Glucose POC Glucose (mg/dL) 155 H 250 H 08/22/16 08/22/16 08:29 12:16 Neutrophils # Lymphocytes # Glucose 246 H POC Glucose (mg/dL) 203 H - Diagnostic Findings Chest x-ray: image reviewed CT scan - chest: image reviewed Assessment and Plan Plan: assessment 1 acute right lower lobe pneumonia suspected, currently under treatment 2 acute elevation of right hemidiaphragm, rule out right hemidiaphragmatic paralysis which is up a new onset. 3 shortness of breath secondary to above 4 preserved LV function with moderate degree of concentric left Hypertrophy/ hypertensive heart disease based on echocardiogram 5 diabetes mellitus 6 obesity 7 osteoarthritis Plan continue the current antibiotic regimen. He was treated with a sniff test to investigate the mobility and the function of the right hemidiaphragm. Continue Valtrex. Continue Zosyn. Daily chest x-rays. Echocardiogram was noted. We' ll continue to follow.
--- NOTE | 2016-08-22 18:10 | PN ---
DATE OF SERVICE: 08/22/2016 This 75-year-old woman who was admitted with COPD exacerbation as well as right lower lobe pneumonia had possibly features of herpes labialis. The patient was started on IV antibiotics. Pulmonary consultation has been sought. Patient is also complaining of lower abdominal pain. There is no constipation, no hematochezia, no melena. The white count is normal at 7. Hemoglobin is 16.3; after hydration 13.8 today. Influenza is negative. Past medical history reviewed. REVIEW OF SYSTEMS: CARDIOVASCULAR SYSTEM: No angina, palpitations. RESPIRATORY SYSTEM: As mentioned earlier. GI: No nausea, vomiting. : No dysuria, retention. NERVOUS SYSTEM: Generalized weakness. CURRENT MEDICATIONS: 1. Ventolin 2.5 q.6. 2. Atrovent. 3. DuoNeb q.i.d. and p.r.n. 4. Xanax 0.25 t.i.d. 5. Aspirin 81 mg. 6. Pulmicort 1 mg b.i.d. 7. Vitamin D3 1000 daily. 8. Lovenox 40 mg subcutaneously daily. 9. Folic acid 1 mg daily. 10. Perforomist 20 mg b.i.d. 11. Motrin 600 mg at bedtime p.r.n. 12. Humalog scale. 13. Toradol 30 mg q.6 p.r.n. 14. Levaquin 750 q.24 hours. 15. Solu-Medrol 60 IV q.6. 16. Toprol XL 25 mg p.o. daily. 17. Multivitamins. 18. Janumet. 19. Protonix. 20. Zosyn 3.375 IV q.8. 21. Restoril. 22. Vitamin B1. 23. Valtrex 500 mg p.o. b.i.d. PHYSICAL EXAMINATION: Patient is alert and oriented x3. Pulse is 74, blood pressure 119/62, respiration 18, temperature 97.2, pulse ox 94% on room air. HEENT: Conjunctivae normal. Herpes labialis present. Oral mucosa moist. NECK: No jugular venous distention. No carotid bruit. No lymph node enlargement. CARDIOVASCULAR SYSTEM: S1, S2 muffled. RESPIRATORY SYSTEM: Breath sounds diminished at the bases. Bilateral scattered rhonchi and crackles, right more than the left. ABDOMEN: Soft. Mild diffuse discomfort in the lower part. No guarding. No rigidity. No mass palpable. Bowel sounds present. No ascites. No hepatosplenomegaly. LEGS: No edema. No swelling. NERVOUS SYSTEM: Higher functions as mentioned earlier. Moves all 4 limbs. No focal motor or sensory deficit. LYMPHATICS: No lymph node palpable in neck, axillae or groin. SKIN: No ulcer, rash, bleeding. LABS: Hemoglobin 13.8. Glucose 203. Hemoglobin A1c is 7. Influenza negative. ASSESSMENT: 1. Chronic obstructive pulmonary disease exacerbation with multifocal right middle lobe pneumonia, possibly Gram-negative. 2. Influenza ruled out. 3. Mild polycythemia, possibly secondary to dehydration, present on admission. 4. Lower abdominal pain. 5. Herpes labialis. 6. Increased D-dimer with no evidence of pulmonary embolism. 7. Increased random blood sugar and diabetes mellitus, type 2. 8. Hypertension, essential. 9. History of leaky heart valves. 10. History of hiatal hernia. 11. History of degenerative joint disease. 12. History of shingles. 13. History of back surgery and degenerative joint disease. 14. History of cardiac catheterization. 15. History of anxiety. RECOMMENDATIONS AND DISCUSSION: In this 75-year-old woman who presented with multiple complex medical issues, we will monitor the patient closely, continue the current medications, continue symptomatic treatment, continue the bronchodilators, continue the empiric antibiotics and steroids. Monitor blood sugars closely. Closely follow with Dr. Nelson. L[place]ette. Provide symptomatic treatment for the abdominal pain. Patient has been given Toradol because of the multitude of allergies. Prognosis guarded because of multiple complex medical issues. Further recommendations to follow.
[2016-08-22] MEDS: LEVOFLOXACIN 750MG-D5W PMX 750 MG in DEXTROSE/WATER 1 150ML.BAG IVPB SCH (18:20)
[2016-08-22 21:19] LABS: Glucose,Whole Blood 278 mg/dL (75-99)
[2016-08-22] MEDS: TEMAZEPAM 15 MG CAP PO PRN (23:31)
[2016-08-23] MEDS: KETOROLAC 30 MG/ML 1 ML VIAL IVP PRN (05:25)
[2016-08-23] MEDS: methylPREDNISolone SOD SUCCI 125 MG/2 ML VIAL IV SCH (06:29)
[2016-08-23 07:57] LABS: Glucose,Whole Blood 255 mg/dL (75-99)
[2016-08-23] MEDS: INSULIN LISPRO (humaLOG) 300 UNIT/3 ML VIAL SQ SCH ×4 (08:09→20:16)
[2016-08-23] MEDS: valACYclovir 500 MG TAB PO SCH (08:10)
[2016-08-23] MEDS: PANTOPRAZOLE 40 MG TABLET PO SCH (08:10)
[2016-08-23] MEDS: ASPIRIN 81 MG CHEW PO SCH (08:10)
[2016-08-23] MEDS: METOPROLOL SUCCINATE (ER) 25 MG TAB.ER.24H PO SCH (08:10)
[2016-08-23] MEDS: ENOXAPARIN 40 MG/0.4 ML SYRINGE SQ SCH (08:10)
[2016-08-23] MEDS: CHOLECALCIFEROL 1,000 UNIT TAB PO SCH (08:10)
[2016-08-23] MEDS: NYSTATIN 100,000 UNIT/ML SUSP 500,000 UNIT/5 ML CUP PO SCH ×3 (08:10→17:44)
[2016-08-23] MEDS: PIPERACILLIN-TAZOBACTAM 3.375 GM in DEXTROSE/WATER 1 50ML.BAG IVPB SCH ×3 (08:18→23:25)
[2016-08-23] MEDS: ALPRAZolam 0.25 MG TAB PO PRN (08:21)
[2016-08-23] MEDS: IPRATROPIUM-ALBUTEROL 3 ML NEB INHALATION SCH ×4 (08:23→19:00)
[2016-08-23] MEDS: FORMOTEROL FUMARATE 20 MCG/2 ML NEBU INHALATION SCH ×2 (08:23→19:00)
[2016-08-23] MEDS: BUDESONIDE 1 MG/2 ML NEBU INHALATION SCH ×2 (08:23→19:00)
[2016-08-23 08:45] LABS: CH 29.9; CHCM 33.1; HCT 41.4 % (34.0-46.0); HGB 13.5 gm/dL (11.4-16.0); Immature Gran Flag Marked; MCH 29.5 pg (25.0-35.0); MCHC 32.5 g/dL (31.0-37.0); MCV 90.6 fL (80.0-100.0); Mean Platelet Volume 7.7; RBC 4.57 m/uL (3.80-5.40); RDW 13.9 % (11.5-15.5); WBC 8.6 k/uL (3.8-10.6); WBC (Perox) 8.52
[2016-08-23 08:56] LABS: Anion Gap 12 mmol/L; Blood Urea Nitrogen 15 mg/dL (7-17); Calcium 8.9 mg/dL (8.4-10.2); Carbon Dioxide 24 mmol/L (22-30); Chloride 104 mmol/L (98-107); Glucose 252 mg/dL (74-99); Non-African American GFR(MDRD) >60 (>60 ml/min/1.73 sqM); Potassium 4.1 mmol/L (3.5-5.1); Sodium 140 mmol/L (137-145)
[2016-08-23] MEDS ORDERED: JANUMET PO SCH (09:00)
--- NOTE | 2016-08-23 09:21 | FL ---
EXAMINATION TYPE: FL sniff test without CXR DATE OF EXAM: 08/23/2016 9:15 AM COMPARISON: Chest x-ray from yesterday and August 15, 2016. CTA chest from 2 days ago. HISTORY: New abnormal x-ray, right diaphragm paralysis. Pain. TECHNIQUE: Fluoroscopic assisted sniff test. Roughly 20 seconds of fluoroscopic time was utilized dur ing procedure. FINDINGS: Dynamic fluoroscopic imaging redemonstrates elevated right hemidiaphragm. There is absent m ovement of the new elevated right hemidiaphragm versus opposite left hemidiaphragm which shows normal movement on inspiration and expiration. There is strong suspicion for free air. Upright x-ray immedi ately after procedure shows significant new pneumoperitoneum below diaphragm. IMPRESSION: There is absent movement of new elevated right hemidiaphragm consistent with new paralysi s. New pneumoperitoneum is noted. Critical results were communicated to patient's nurse via telephone at time of dictation. A Red message has been communicated to Uriel Nelson MD via the [employer] Critical Result system on 08/23/2016 9:18 AM, Message ID [id number].
[2016-08-23 09:50] LABS: Add Differential Manual Differential
[2016-08-23 09:51] LABS: Nucleated Red Blood Cells 0 /100 WBC (0-0); Polychromasia Present; Total Cells Counted 100
--- NOTE | 2016-08-23 10:28 | P.GSCN ---
History of Present Illness Consult date: 08/23/16 Reason for Consult: Free air History of present illness: The patient's a 75-year-old female who was admitted to the hospital due to shortness of breath which was progressive. Been treated as an outpatient for pneumonia with antibiotics and steroids. She became progressively worse and so came into the emergency department and was admitted. She was found to have right diaphragmatic paralysis. And was being worked up for that. She went down for special imaging this morning and was found to have free air under both hemidiaphragms. She's been having some pain in the right upper quadrant she initially thought was from. It got significantly worse through the night and its diffuse now. No history of ulcers in the past. She has known diverticulosis but is never been hospitalized with diverticulitis Review of Systems - Constitutional Reports as per HPI Past Medical History Past Medical History: Diabetes Mellitus, Hypertension Additional Past Medical History / Comment(s): Obesity, hiatal hernia, shingles, diabetes mellitus, hypertension, degenerative arthritis, generalized anxiety disorder. History of Any Multi-Drug Resistant Organisms: None Reported Past Surgical History: Back Surgery, Heart Catheterization Additional Past Surgical History / Comment(s): mult back surgeries-back and neck fusions, epidural spinal shots for pain control, bilateral cataract surgeries Past Anesthesia/Blood Transfusion Reactions: Previous Problems w/ Anesthesia Additional Past Anesthesia/Blood Transfusion Reaction / Comm: stopped breathing during back surgery from being "over medicated" - had to get narcan Past Psychological History: Anxiety Smoking Status: Former smoker Past Alcohol Use History: None Reported Additional Past Alcohol Use History / Comment(s): started smoking at age 17, smoked 1 pp week, quit 1989 Past Drug Use History: None Reported - Past Family History Brother(s) Family Medical History: Cancer Medications and Allergies Home Medications Medication Instructions Recorded Confirmed Type Aspirin 81 mg PO DAILY 11/20/13 08/21/16 History Metoprolol Succinate [Toprol XL] 25 mg PO DAILY 11/20/13 08/21/16 History Temazepam [Restoril] 30 mg PO HS PRN 11/20/13 08/21/16 History ALPRAZolam [Xanax] 0.5 mg PO DAILY PRN 03/19/15 08/21/16 History Cholecalciferol [Vitamin D3] 1,000 unit PO DAILY 03/19/15 08/21/16 History Vit C/E/Zn/Coppr/Lutein/Zeaxan 1 cap PO DAILY 03/19/15 08/21/16 History [Preservision Areds 2 Softgel] Albuterol Sulfate [Proair Hfa] 2 puff INHALATION RT-Q6H PRN 03/06/16 08/21/16 History Ibuprofen [Motrin] 800 mg PO Q8H PRN 08/21/16 08/21/16 History sitaGLIPtin PHOS/metFORMIN HCL 1 tab PO DAILY 08/21/16 08/22/16 History [Janumet 50-500 mg Tablet] Allergies Allergy/AdvReac Type Severity Reaction Status Date / Time shellfish derived [Shellfish] Allergy Severe Anaphylaxis Verified 08/21/16 16:43 morphine Allergy Intermediate Rash/Hives Verified 08/21/16 16:43 cefuroxime axetil Allergy Unknown Verified 08/21/16 16:43 [From Ceftin] codeine Allergy Unknown Verified 08/21/16 16:43 erythromycin base Allergy Unknown Verified 08/21/16 16:43 [From E-Mycin] fentanyl Allergy Unknown Verified 08/21/16 16:43 hydrocodone bitartrate Allergy Unknown Verified 08/21/16 16:43 [From Lortab] lisinopril Allergy anxiety Verified 08/21/16 16:43 meperidine HCl [From Demerol] Allergy Unknown Verified 08/21/16 16:43 milk Allergy Unknown Verified 08/21/16 16:43 oxycodone HCl [From Percocet] Allergy Unknown Verified 08/21/16 16:43 SEAFOOD Allergy Severe Anaphylaxis Uncoded 08/21/16 15:54 Surgical - Exam Osteopathic Statement: *. No significant issues noted on an osteopathic structural exam other than those noted in the History and Physical/Consult. Vital Signs Temp Pulse Resp BP Pulse Ox 97.5 F L 56 L 18 109/56 97 08/21/16 15:49 08/21/16 15:49 08/21/16 15:49 08/21/16 15:49 08/21/16 15:49 - General Appears mildly anxious well developed, well nourished - Eyes normal ocular movement - ENT no hearing loss - Neck trachea midline - Abdomen Abdomen: tender, guarding Results - Labs 08/23/16 07:50 08/23/16 07:50 Abnormal Lab Results - Last 24 Hours (Table) 08/22/16 08/22/16 08/22/16 Range/Units 12:16 17:12 21:17 Lymphocytes # (Manual) (1.0-4.8) k/uL Glucose (74-99) mg/dL POC Glucose (mg/dL) 203 H 231 H 278 H (75-99) mg/dL 08/23/16 08/23/16 08/23/16 Range/Units 07:30 07:50 07:50 Lymphocytes # (Manual) 0.5 L (1.0-4.8) k/uL Glucose 252 H (74-99) mg/dL POC Glucose (mg/dL) 255 H (75-99) mg/dL Microbiology - Last 24 Hours (Table) 08/21/16 21:20 Gram Stain - Preliminary Sputum Sputum Culture - Preliminary 08/21/16 23:30 Urine Culture - Preliminary Urine,Clean Catch Diabetes panel 08/23/16 Range/Units 07:50 Sodium 140 (137-145) mmol/L Potassium 4.1 (3.5-5.1) mmol/L Chloride 104 (98-107) mmol/L Carbon Dioxide 24 (22-30) mmol/L BUN 15 (7-17) mg/dL Creatinine 0.70 (0.52-1.04) mg/dL Glucose 252 H (74-99) mg/dL Calcium 8.9 (8.4-10.2) mg/dL Calcium panel 08/23/16 Range/Units 07:50 Calcium 8.9 (8.4-10.2) mg/dL Pituitary panel 08/23/16 Range/Units 07:50 Sodium 140 (137-145) mmol/L Potassium 4.1 (3.5-5.1) mmol/L Chloride 104 (98-107) mmol/L Carbon Dioxide 24 (22-30) mmol/L BUN 15 (7-17) mg/dL Creatinine 0.70 (0.52-1.04) mg/dL Glucose 252 H (74-99) mg/dL Calcium 8.9 (8.4-10.2) mg/dL Adrenal panel 08/23/16 Range/Units 07:50 Sodium 140 (137-145) mmol/L Potassium 4.1 (3.5-5.1) mmol/L Chloride 104 (98-107) mmol/L Carbon Dioxide 24 (22-30) mmol/L BUN 15 (7-17) mg/dL Creatinine 0.70 (0.52-1.04) mg/dL Glucose 252 H (74-99) mg/dL Calcium 8.9 (8.4-10.2) mg/dL - Imaging Chest x-ray: report reviewed, image reviewed Assessment and Plan (1) Free intraperitoneal air Status: Acute (2) Diaphragmatic paralysis Status: Acute Plan: The case was discussed with the patient, family, Dr. Nelson. This is likely a perforated ulcer. Other pathology such as perforated diverticulitis could be considered. Recommended a diagnostic laparoscopy. If there is an ulcer present hopefully that can be repaired laparoscopically. Would also check for other potential causes of the free air in repair those as needed. The procedures and complications were discussed. Questions were encouraged and answered. Explained that with the diaphragm paralysis she would possibly be at increased risk for needing to be on the ventilator postoperatively. We'll do DVT and ulcer prophylaxis. Further recommendations to follow
[2016-08-23] MEDS ORDERED: PROPOFOL 10 MG/ML 20 ML VIAL IV ONE (11:49)
[2016-08-23] MEDS ORDERED: SUCCINYLCHOLINE CHLORIDE VIAL 200 MG/10 ML VIAL IV ONE (11:49)
[2016-08-23] MEDS ORDERED: KETOROLAC 30 MG/ML 1 ML VIAL ONE (11:49)
[2016-08-23] MEDS ORDERED: NEOSTIGMINE 1 MG/ML 10 ML VIAL ONE (11:49)
[2016-08-23] MEDS ORDERED: HYDROmorphone (PF) 1 MG/ML ONE (11:49)
[2016-08-23] MEDS ORDERED: MIDAZOLAM 2 MG/2 ML VIAL ONE (11:49)
[2016-08-23] MEDS ORDERED: GLYCOPYRROLATE 0.2 MG/ML 2 ML VIAL ONE (11:49)
[2016-08-23] MEDS ORDERED: DEXAMETHASONE SOD PHOS (MDV) 100 MG/10 ML VIAL ONE (11:49)
[2016-08-23] MEDS ORDERED: ONDANSETRON 4 MG/2 ML VIAL ONE (11:49)
[2016-08-23] MEDS ORDERED: fentaNYL (PF) 50 MCG/ML 2 ML AMP ONE (11:49)
[2016-08-23] MEDS ORDERED: LIDOCAINE 1% INJ 10MG/ML (20 ML MDV) ONE (11:49)
[2016-08-23] MEDS ORDERED: IV FLUID CONTINUATION 1,000 ML IV ONE (11:49)
[2016-08-23] MEDS ORDERED: BUPIVACAIN-EPI 0.25%-1:200,000 30 ML VIAL SQ ONE ×2 (12:15)
[2016-08-23] MEDS ORDERED: LACTATED RINGERS 1,000 ML IV ONE ×2 (12:40)
--- NOTE | 2016-08-23 13:08 | P.PN ---
Subjective I was asked to evaluate this 75-year-old female patient for symptoms of pneumonia. Note that the patient was having some increased cough and congestion and dyspnea for the past 10 days. She was being treated by Keli Vargas NP, and initially she was given a course of amoxicillin followed by a Medrol Dosepak. Her symptoms remain unchanged and the patient was still having the same symptomatology and she was given Levaquin. During this time, the patient reported limited improvement if any and she also developed some herpetic lesions in her upper lips. No chills. No fever. No pleurisy. No chest pain. No trauma to the chest. No falls. No nausea. No vomiting. No diarrhea. No abdominal pain. No change in mental status. Ultimately the patient decided to come in to the hospital for further evaluation. The chest x-rays were done in the hospital showed significant elevation of the right hemidiaphragm which is a new findings compared to the previous chest x-rays. A CAT scan of the chest was also done and this is a CT angios done to rule out pulmonary embolism. The findings showed a patchy opacity within the medial right upper lobe of the lung with peribronchial thickening. However, the major abnormalities that was noted is in the right lower lobe where the right hemidiaphragm is felt to be quite elevated and that it probably some residual consolidation within the right lower lobe area. I do suspect an underlying diaphragmatic weakness/paralysis that has developed recently knowing that this abnormality was not present on previous x-rays that were done earlier on the same patient. For now, the patient has no other complaints. Her white cell count is at 10.4. She was started on IV Zosyn. She was started on bronchodilators. She was started on systemic steroids. She was started on Valtrex regarding her herpetic labial lesions. Pulmonate consultation was requested for further advice. Influenza A and B screen was negative. On 08/23/2016 the patient is being seen in follow-up. Note that on yesterday's evaluation of suspected a right hemidiaphragmatic paralysis and I sent this patient for a sniff test to confirm the findings. During her sniff test, the patient was found to have bilateral air under the diaphragms and this was consistent with pneumoperitoneum. Immediately the patient was evaluated and the patient seems to have developing increased abdominal pain and tenderness over the past 6-12 hours. Based on that, a stat consultation for surgery was placed and the patient was evaluated and seen by Dr. Siu and she'll be taken to the operating room. There is a suspicion that the patient has perforated day gastric ulcer or a perforated diverticulum. She will need an expiratory laparoscopy with possible open laparotomy. The findings of the x-ray were discussed with the patient length and she is aware of this. Objective - Vital Signs Vital signs: Vital Signs Temp 98.5 F 08/23/16 07:00 Pulse 90 08/23/16 08:36 Resp 22 08/23/16 07:00 BP 126/67 08/23/16 07:00 Pulse Ox 95 08/23/16 07:00 Intake & Output 08/22/16 08/23/16 08/23/16 18:59 06:59 18:59 Intake Total 200 620 Output Total 200 Balance 0 620 Weight 73.482 kg Intake: IV 500 Oral 200 120 Output: Urine 200 Other: Voiding Method Toilet Toilet # Voids 3 2 # Bowel Movements 0 - Exam Head exam was generally normal. There was no scleral icterus or corneal arcus. Mucous membranes were moist.Neck was supple and without jugular venous distension, thyromegaly, or carotid bruits. Carotids were easily palpable bilaterally. There was no adenopathy. Lung sounds are diminished in the right lung base compared to the left.Cardiac exam revealed the PMI to be normally situated and sized. The rhythm was regular and no extrasystoles were noted during several minutes of auscultation. The first and second heart sounds were normal and physiologic splitting of the second heart sound was noted. There were no murmurs, rubs, clicks, or gallops. Abdomen shows direct tenderness throughout anterior abdominal wall. No rebound tenderness. Bowel sounds are hypoactive.Examination of the extremities revealed easily palpable radial, femoral and pedal pulses. There was no cyanosis, clubbing or edema. - Labs CBC & Chem 7: 08/23/16 07:50 08/23/16 07:50 Labs: Abnormal Lab Results - Last 24 Hours (Table) 08/22/16 08/22/16 08/23/16 Range/Units 17:12 21:17 07:30 Lymphocytes # (Manual) (1.0-4.8) k/uL Glucose (74-99) mg/dL POC Glucose (mg/dL) 231 H 278 H 255 H (75-99) mg/dL 08/23/16 08/23/16 Range/Units 07:50 07:50 Lymphocytes # (Manual) 0.5 L (1.0-4.8) k/uL Glucose 252 H (74-99) mg/dL POC Glucose (mg/dL) (75-99) mg/dL Microbiology - Last 24 Hours (Table) 08/21/16 23:30 Urine Culture - Final Urine,Clean Catch 08/21/16 21:20 Gram Stain - Preliminary Sputum Sputum Culture - Preliminary Assessment and Plan Plan: assessment 1 acute abdomen with evidence of pneumoperitoneum and air under the diaphragm bilaterally. Rule out perforated peptic ulcer/duodenal ulcer. 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 Less likely is the possibility of a pneumonia. 3 shortness of breath secondary to above 4 preserved LV function with moderate degree of concentric left Hypertrophy/ hypertensive heart disease based on echocardiogram 5 diabetes mellitus 6 obesity 7 osteoarthritis Plan keep the patient nothing by mouth. Stopped IV Solu-Medrol. Avoid any form of nonsteroidal anti-inflammatory medications. Continued IV Zosyn. Stat surgical consult. The patient will be taken to the operating room for a diagnostic laparoscopy and possible laparotomy. The patient will be contacted intensive care following her surgery due to concern of her having respiratory insufficiency especially with her right diaphragmatic paralysis.case was discussed with a general surgeon. Case was discussed with the patient and her and the bedside.
[2016-08-23] MEDS ORDERED: NALOXONE 0.4 MG/ML 1 ML VIAL IV PRN (14:09)
[2016-08-23] MEDS ORDERED: METOCLOPRAMIDE 5 MG/ML 2 ML VIAL IVP PRN (14:09)
[2016-08-23] MEDS ORDERED: ONDANSETRON 4 MG/2 ML VIAL IVP PRN (14:09)
--- NOTE | 2016-08-23 14:09 | P.OP ---
Date of Procedure: 08/23/16 Preoperative Diagnosis: Free intra-abdominal air Postoperative Diagnosis: Perforated diverticulitis Procedure(s) Performed: Diagnostic laparoscopy, Maloney's procedure, placement of Bentley-Li drain 2 Anesthesia: DIANA Surgeon: Stephanie Siu Estimated Blood Loss (ml): 150 Pathology: other (Sigmoid colon) Condition: stable Disposition: PACU Indications for Procedure: The patient had been found to have free air in the abdomen on x-ray. She been having some abdominal pain which was progressively worsening Operative Findings: She has some adhesions in the upper abdomen which were sharply taken down. No evidence of perforated gastric or duodenal ulcer. There was purulent material along the left paracolic gutter and pelvis. There was findings of a area of sigmoid diverticulitis with perforation. Coincidental finding of a right spigelian hernia less than a centimeter in size. Description of Procedure: The patient was taken the operative suite where she is prepped and draped in usual sterile manner under general endotracheal anesthetic. An infraumbilical incision was made and a varies needle was placed in the abdominal cavity. Pneumoperitoneum was established with CO2 gas. Sites are chosen for accessory trochars needs are placed through small skin incisions. The abdominal and pelvic contents were examined with findings as described above. Some of the filmy adhesions were sharply taken down in the right upper quadrant in the stomach and duodenal sweep were examined. The trochars were then removed and the abdomen was entered through a lower midline incision. Bleeding points were controlled with electrocautery. A self-retaining retractor was placed. A site was chosen on the sigmoid colon where it was soft in the hasn't Felix was scored on either side. The bowel was then transected using a YVONNE stapler. The mesentery was then taken down either with LigaSure or the sigmoidal vessel was clamped cut and tied with 0 Vicryl suture. A site was chosen proximally for resection. YVONNE stapler was placed and fired. The specimen was passed off. The line of Toldt was taken down with electrocautery. The descending colon was mobilized medially. The abdomen and pelvis were then copiously irrigated and aspirated. 2 drains were placed. One was placed down into the pelvis. The other drain was placed along the left paracolic gutter. A disc of skin and subcutaneous tissues was then removed in the left side of the abdomen. The fascia and muscle were split along the direction of their fibers. The peritoneum was incised. The loop of sigmoid colon was then brought up. The small bowel was then allowed to lay in gentle loops. It was covered with omentum. The fascia and posterior peritoneum were then closed with 0 PDS. The skin was loosely approximated with santosh. Erick were placed in between. The incision was covered. The ostomy was then matured. Some of the redundant epiploic fat was taken down with LigaSure. The bowel was then tacked to the fascia using 3-0 Vicryl. The staple line was removed. The ostomy was then matured taking bites of the cut edge the deep subcuticular and the fascia. These were tied down. Then interrupted chromics were placed around the periphery. Ischemia appliance was placed. She tolerated the procedure without difficulty. According to or personnel all counts are correct. Plan is to try to extubate her in the monitor her in the ICU.
[2016-08-23] MEDS: THIAMINE 100 MG TAB PO SCH (14:13)
[2016-08-23] MEDS: FOLIC ACID 1 MG TAB PO SCH (14:13)
[2016-08-23] MEDS: MULTIVITAMINS, THERA 1 EACH TAB PO SCH (14:13)
[2016-08-23] MEDS: SODIUM CHLORIDE 0.9% 1,000 ML IV SCH ×2 (14:14→14:45)
[2016-08-23] MEDS ORDERED: D5-0.45% NACL WITH KCL 20MEQ/L 1,000 ML IV SCH (14:15)
[2016-08-23] MEDS: MIDAZOLAM 2 MG/2 ML VIAL IVP ONE ×2 (14:20→14:30)
[2016-08-23] MEDS ORDERED: VERAPAMIL SYRINGE (5 MG/10 ML) IVP ONE (14:20)
[2016-08-23 15:05] LABS: Glucose,Whole Blood 195 mg/dL (75-99)
[2016-08-23 17:37] LABS: Glucose,Whole Blood 224 mg/dL (75-99)
[2016-08-23] MEDS ORDERED: POTASSIUM CHLORIDE IV SCH ×2 (18:00)
[2016-08-23] MEDS ORDERED: SODIUM CHLORIDE 0.9% IV SCH ×2 (18:00)
[2016-08-23] MEDS: LEVOFLOXACIN 750MG-D5W PMX 750 MG in DEXTROSE/WATER 1 150ML.BAG IVPB SCH (18:08)
[2016-08-23] MEDS: 0.9% NACL WITH KCL 20 MEQ/L 1,000 ML IV SCH (18:33)
[2016-08-23] MEDS: HYDROmorphone 1 MG/ML 1 ML SYRINGE IVP PRN ×2 (19:57→23:13)
[2016-08-23 20:16] LABS: Glucose,Whole Blood 242 mg/dL (75-99)
[2016-08-23] MEDS ORDERED: SODIUM CHLORIDE 0.9% 500 ML IV ONE ×2 (22:19→23:08)
[2016-08-23] MEDS: ACYCLOVIR SODIUM 500 MG in SODIUM CHLORIDE 0.9% 100 ML IVPB SCH (23:37)
[2016-08-24] MEDS: HYDROmorphone 1 MG/ML 1 ML SYRINGE IVP PRN ×6 (02:38→23:43)
[2016-08-24] MEDS: 0.9% NACL WITH KCL 20 MEQ/L 1,000 ML IV SCH ×3 (04:47→23:46)
[2016-08-24 05:20] LABS: Anion Gap 6 mmol/L; Blood Urea Nitrogen 14 mg/dL (7-17); Calcium 7.5 mg/dL (8.4-10.2); Carbon Dioxide 24 mmol/L (22-30); Chloride 110 mmol/L (98-107); Glucose 149 mg/dL (74-99); Magnesium 1.8 mg/dL (1.6-2.3); Non-African American GFR(MDRD) >60 (>60 ml/min/1.73 sqM); Phosphorous 2.4 mg/dL (2.5-4.5); Potassium 4.8 mmol/L (3.5-5.1); Sodium 140 mmol/L (137-145)
[2016-08-24 05:47] LABS: Basophils % (A) 0 %; CH 29.2; CHCM 31.8; Eosinophils % (A) 0 %; HCT 33.2 % (34.0-46.0); HDW 2.92; Hypochromasia Slight; Luc # (Auto) 0.07; Luc % (Auto) 1; Lymphocytes # (A) 0.4 k/uL (1.0-4.8); Lymphocytes % (A) 8 %; MCH 29.4 pg (25.0-35.0); MCHC 31.9 g/dL (31.0-37.0); MCV 92.2 fL (80.0-100.0); Mean Platelet Volume 8.1; Monocytes # (A) 0.1 k/uL (0-1.0); Monocytes % (A) 2 %; Neutrophils # (A) 4.5 k/uL (1.3-7.7); Neutrophils % (A) 88 %; RDW 13.9 % (11.5-15.5); WBC 5.1 k/uL (3.8-10.6)
[2016-08-24] MEDS ORDERED: SODIUM PHOSPHATE 10 MMOL in SODIUM CHLORIDE 0.9% 250 ML IVPB ONE (05:47)
[2016-08-24] MEDS ORDERED: Phosphorus Replacement Protoco 1 EACH MISC MISCELLANE PRN (05:47)
[2016-08-24] MEDS ORDERED: Magnesium Replacement Protocol 1 EACH MISC MISCELLANE PRN (05:47)
[2016-08-24 05:55] LABS: HGB 10.6 gm/dL (11.4-16.0)
[2016-08-24] MEDS: MAGNESIUM SULFATE-D5W PMX 1 GM in DEXTROSE/WATER 1 100ML.BAG IVPB SCH ×2 (06:30→08:00)
[2016-08-24] MEDS: FORMOTEROL FUMARATE 20 MCG/2 ML NEBU INHALATION SCH ×2 (07:30→19:25)
[2016-08-24] MEDS: BUDESONIDE 1 MG/2 ML NEBU INHALATION SCH ×2 (07:30→19:25)
[2016-08-24] MEDS: IPRATROPIUM-ALBUTEROL 3 ML NEB INHALATION SCH ×4 (07:30→19:25)
[2016-08-24 07:31] LABS: Glucose,Whole Blood 161 mg/dL (75-99)
--- NOTE | 2016-08-24 07:45 | XR ---
EXAMINATION TYPE: XR chest 1V DATE OF EXAM: 08/24/2016 6:30 AM COMPARISON: Prior chest x-ray dated 22 August 2016 HISTORY: Intubated, abnormal chest x-ray TECHNIQUE: Single frontal view of the chest is obtained. FINDINGS: There is no focal air space opacity, pleural effusion, or pneumothorax seen. The cardiac silhouette size is within normal limits. Endotracheal tube, NG tube are overlying appropriate posit ions. There are overlying cardiac leads and the patient is rotated. Persistent elevation of the right hemidiaphragm, there is patchy basilar density. The heart is enlarged. No evident pneumothorax. The osseous structures are intact. IMPRESSION: Similar findings. Cardiomegaly. There may be basilar atelectasis, difficult to exclude p neumonia, effusion. Follow-up recommended.
[2016-08-24] MEDS: INSULIN LISPRO (humaLOG) 300 UNIT/3 ML VIAL SQ SCH ×4 (08:00→21:50)
[2016-08-24] MEDS: ACYCLOVIR SODIUM 500 MG in SODIUM CHLORIDE 0.9% 100 ML IVPB SCH ×3 (08:00→23:58)
[2016-08-24] MEDS: PIPERACILLIN-TAZOBACTAM 3.375 GM in DEXTROSE/WATER 1 50ML.BAG IVPB SCH ×3 (08:00→23:58)
[2016-08-24] MEDS: PANTOPRAZOLE 40 MG/10 ML VIAL IV SCH (08:09)
[2016-08-24] MEDS: ENOXAPARIN 40 MG/0.4 ML SYRINGE SQ SCH (08:10)
[2016-08-24] MEDS ORDERED: METOPROLOL TARTRATE 5 MG/5 ML VIAL IVP SCH (09:00)
--- NOTE | 2016-08-24 09:09 | PN ---
DATE OF SERVICE: 08/23/2016 This 75-year-old woman was admitted with COPD and pneumonia, also was found to have sigmoid perforation today. Dr. Siu performed diagnostic laparoscopy, Maged's procedure, placement of Bentley-Li drain as well x2. The patient has been closely monitored in ICU. At this time the patient is on broad-spectrum IV antibiotics. Dr. Nelson also noted significant apparent diaphragmatic weakness on the right side also. PAST MEDICAL HISTORY: Reviewed. REVIEW OF SYSTEMS: CARDIOVASCULAR: No angina. RESPIRATORY: As mentioned. GI: As mentioned. : No dysuria. NERVOUS SYSTEM: No numbness or weakness. The current medications are: 1. Ventolin 2.5 q.6. 2. DuoNeb q.i.d. and p.r.n. 3. Xanax 0.5 t.i.d. 4. Aspirin 81 mg. 5. Pulmicort 1 mg b.i.d. 6. Vitamin D3, 1000 daily. 7. Lovenox 40 mg subcu. 8. Folic acid 1 mg. 9. Perforomist 20 mg b.i.d. 10. Dilaudid 0.5 to 3. 11. Humalog. 12. Levaquin 750 daily. 13. Reglan. 14. Toprol-XL. 15. Multivitamins. 16. Narcan. 17. Janumet. 18. Zofran. 19. Protonix. 20. Zosyn. 21. Vitamin B. 22. Valtrex. PHYSICAL EXAM: Patient is alert and oriented x3. Pulse 92, blood pressure at 106/57, respiratory rate 21, temperature 97.8, pulse ox 90% on 2-L. HEENT: Conjunctivae normal. Otherwise herpes labialis present. NECK: No jugular venous distention. CARDIOVASCULAR: S1 and S2, muffled. No S3, no S4. RESPIRATORY: Breath sounds diminished at the bases. A few scattered rhonchi and crackles. ABDOMEN: Soft, status post surgery. LEGS: No edema, no swelling. NERVOUS SYSTEM: No focal deficits. LABS: Accu-Cheks 255, 252, 195 and 224. ASSESSMENT: 1. Acute sigmoid perforation, status post Maged's procedure. 2. Chronic obstructive pulmonary disease, acute exacerbation, with multifocal right middle lobe pneumonia, possibly gram-negative. 3. Mild polycythemia possibly secondary to dehydration present on admission. 4. Herpes labialis. 5. Increased d-dimer with no evidence of pulmonary embolism. 6. Increased random blood sugar. 7. Diabetes mellitus type 2. 8. Hypertension, essential. 9. History of leaky heart valve. 10. History of hiatal hernia. 11. History of degenerative joint disease. 12. History of shingles. 13. History of back surgery, degenerative joint disease. 14. History of cardiac catheterization. 15. History of anxiety. 16. FULL CODE. RECOMMENDATIONS AND DISCUSSION: I recommend to continue current medications, continue symptomatic treatment, otherwise continue with broad-spectrum IV antibiotics. Continue the bronchodilators. Close follow with Dr. Nelson. Prognosis guarded. Closely follow after surgery. Further recommendations to follow.
[2016-08-24 12:13] LABS: Glucose,Whole Blood 154 mg/dL (75-99)
--- NOTE | 2016-08-24 12:13 | P.PN ---
Subjective I was asked to evaluate this 75-year-old female patient for symptoms of pneumonia. Note that the patient was having some increased cough and congestion and dyspnea for the past 10 days. She was being treated by Keli Vargas NP, and initially she was given a course of amoxicillin followed by a Medrol Dosepak. Her symptoms remain unchanged and the patient was still having the same symptomatology and she was given Levaquin. During this time, the patient reported limited improvement if any and she also developed some herpetic lesions in her upper lips. No chills. No fever. No pleurisy. No chest pain. No trauma to the chest. No falls. No nausea. No vomiting. No diarrhea. No abdominal pain. No change in mental status. Ultimately the patient decided to come in to the hospital for further evaluation. The chest x-rays were done in the hospital showed significant elevation of the right hemidiaphragm which is a new findings compared to the previous chest x-rays. A CAT scan of the chest was also done and this is a CT angios done to rule out pulmonary embolism. The findings showed a patchy opacity within the medial right upper lobe of the lung with peribronchial thickening. However, the major abnormalities that was noted is in the right lower lobe where the right hemidiaphragm is felt to be quite elevated and that it probably some residual consolidation within the right lower lobe area. I do suspect an underlying diaphragmatic weakness/paralysis that has developed recently knowing that this abnormality was not present on previous x-rays that were done earlier on the same patient. For now, the patient has no other complaints. Her white cell count is at 10.4. She was started on IV Zosyn. She was started on bronchodilators. She was started on systemic steroids. She was started on Valtrex regarding her herpetic labial lesions. Pulmonate consultation was requested for further advice. Influenza A and B screen was negative. On 08/23/2016 the patient is being seen in follow-up. Note that on yesterday's evaluation of suspected a right hemidiaphragmatic paralysis and I sent this patient for a sniff test to confirm the findings. During her sniff test, the patient was found to have bilateral air under the diaphragms and this was consistent with pneumoperitoneum. Immediately the patient was evaluated and the patient seems to have developing increased abdominal pain and tenderness over the past 6-12 hours. Based on that, a stat consultation for surgery was placed and the patient was evaluated and seen by Dr. Siu and she'll be taken to the operating room. There is a suspicion that the patient has perforated day gastric ulcer or a perforated diverticulum. She will need an expiratory laparoscopy with possible open laparotomy. The findings of the x-ray were discussed with the patient length and she is aware of this. On 08/24/2016 the patient is being seen in follow-up. The patient is doing well. As mentioned earlier, the patient was taken to the operating room yesterday for pneumoperitoneum. She was found to have perforated diverticulitis. The surgery was done by Dr. Siu. The patient underwent diagnostic laparoscopy and following that she underwent sigmoid resection with Maloney's pouch and diverting colostomy for perforated diverticulitis. YUVAL drains were placed 2 and following that the patient was extubated and she was brought into the intensive care unit. Overnight the patient had some low urine output and she was given a bolus of 1 L of normal saline and currently she is on a maintenance of 1 25 mL an hour. She has a good urine output. No nausea. No vomiting. NG tube in place. The output from the NG tube is been around 500 mL since she arrived from the operating room. Colostomy site is viable and nonfunctional yet. No abdominal pain. No swelling lower extremities. No respiratory distress. Chest x-ray showing significant elevation of the right hemidiaphragm consistent with diaphragmatic paralysis. NG tube is in a good location. The patient remains on IV Zosyn. The white cell count is not elevated. Objective - Vital Signs Vital signs: Vital Signs Temp 97.8 F 08/24/16 08:00 Pulse 104 H 08/24/16 11:17 Resp 39 H 08/24/16 10:00 BP 117/52 08/24/16 10:00 Pulse Ox 94 L 08/24/16 10:00 Intake & Output 08/23/16 08/24/16 08/24/16 18:59 06:59 18:59 Intake Total 2110 2150.0 700 Output Total 435 642 190 Balance 1675 1508.0 510 Weight 73.5 kg 75.1 kg 75.1 kg Intake: IV 1500 Intake, IV Titration 490 2150.0 700 Amount 0.9% NaCl with KCl 20 Meq 100 1000 100 /l 1,000 ml @ 100 mls/hr IV .Q10H [facility] Rx#: [id number] Acyclovir Sodium 500 mg 100 100 In Sodium Chloride 0.9% 100 ml @ 100 mls/hr IVPB Q8HR [facility] Rx#:[id number] D5-0.45% NaCl with KCl 240 20Meq/l 1,000 ml @ 80 mls /hr IV .[id number] [facility] Rx#: [id number] Levofloxacin 750Mg-D5w 100 Pmx 750 mg In Dextrose/ Water 1 150ml.bag @ 100 mls/hr IVPB Q24H [facility] Rx#: [id number] Magnesium Sulfate-D5w Pmx 200 1 gm In Dextrose/Water 1 100ml.bag @ 100 mls/hr IVPB Q1H [facility] Rx#: [id number] Piperacillin-Tazobactam 3 50 50.0 50 .375 gm In Dextrose/Water 1 50ml.bag @ 12.5 mls/hr IVPB Q8HR [facility] Rx#: [id number] Sodium Chloride 0.9% 500 1000 ml @ 999 mls/hr IV .Q31M [facility] Rx#:[id number] Sodium Phosphate 10 mmol 250 In Sodium Chloride 0.9% 250 ml @ 125 mls/hr IVPB ONCE ONE Rx#:[id number] Oral 120 Output: Gastric Drainage 200 Drainage 45 120 Right Lower Abdomen 5 55 Right Upper Abdomen 40 65 Urine 240 322 190 Estimated Blood Loss 150 Other: Voiding Method Indwelling Catheter Indwelling Catheter Indwelling Catheter - Exam Head exam was generally normal. There was no scleral icterus or corneal arcus. Mucous membranes were moist.Neck was supple and without jugular venous distension, thyromegaly, or carotid bruits. Carotids were easily palpable bilaterally. There was no adenopathy. Lung sounds are markedly diminished in the right lung base.Cardiac exam revealed the PMI to be normally situated and sized. The rhythm was regular and no extrasystoles were noted during several minutes of auscultation. The first and second heart sounds were normal and physiologic splitting of the second heart sound was noted. There were no murmurs , rubs, clicks, or gallops. Abdomen is soft. The patient is diabetic colostomy site which is intact. No direct tenderness. No rebound tenderness. No guarding. Bowel sounds are hypoactive. Incision is dry clean and intact. The YUVAL drains are in place.Examination of the extremities revealed easily palpable radial, femoral and pedal pulses. There was no cyanosis, clubbing or edema. - Labs CBC & Chem 7: 08/24/16 04:40 08/24/16 04:40 Labs: Abnormal Lab Results - Last 24 Hours (Table) 08/23/16 08/23/16 08/23/16 Range/Units 15:02 17:35 20:15 RBC (3.80-5.40) m/uL Hgb (11.4-16.0) gm/dL Hct (34.0-46.0) % Lymphocytes # (1.0-4.8) k/uL Chloride (98-107) mmol/L Glucose (74-99) mg/dL POC Glucose (mg/dL) 195 H 224 H 242 H (75-99) mg/dL Calcium (8.4-10.2) mg/dL Phosphorus (2.5-4.5) mg/dL 08/24/16 08/24/16 08/24/16 Range/Units 04:40 04:40 07:29 RBC 3.60 L (3.80-5.40) m/uL Hgb 10.6 L (11.4-16.0) gm/dL Hct 33.2 L (34.0-46.0) % Lymphocytes # 0.4 L (1.0-4.8) k/uL Chloride 110 H (98-107) mmol/L Glucose 149 H (74-99) mg/dL POC Glucose (mg/dL) 161 H (75-99) mg/dL Calcium 7.5 L (8.4-10.2) mg/dL Phosphorus 2.4 L (2.5-4.5) mg/dL Microbiology - Last 24 Hours (Table) 08/21/16 21:20 Gram Stain - Final Sputum Sputum Culture - Final 08/21/16 23:30 Urine Culture - Final Urine,Clean Catch Assessment and Plan Plan: assessment 1 acute pneumoperitoneum attributed to a perforated diverticulitis. The patient had a sigmoid resection with Maloney's pouch and diverting colostomy and the patient is postop day #1. She remains on IV Zosyn. She is hemodynamically stable. She was weaned off the mechanical ventilator and extubated without any major difficulties. 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 Less likely is the possibility of a pneumonia. 3 shortness of breath secondary to above 4 preserved LV function with moderate degree of concentric left Hypertrophy/ hypertensive heart disease based on echocardiogram 5 diabetes mellitus 6 obesity 7 osteoarthritis Plan The patient remains nothing by mouth. Anticipate prolonged ileus following this acute abdomen and acute perforated diverticulitis. We'll consult IR for a PICC line insertion. Possible TPN on Thursday. I consulted dietitian for recommendations regarding PPN. Continue IV Zosyn. Provide the patient incentive spirometer. Keep the NG tube in place. Continue IV fluids. Continue rest of the supportive care. ICU. We'll give the patient ICU for another 24 hours.
[2016-08-24] MEDS: LORazepam 2 MG/ML SYRINGE IV PRN ×2 (12:50→20:13)
[2016-08-24] MEDS: LEVOFLOXACIN 750MG-D5W PMX 750 MG in DEXTROSE/WATER 1 150ML.BAG IVPB SCH (17:03)
[2016-08-24 17:17] LABS: Glucose,Whole Blood 132 mg/dL (75-99)
--- NOTE | 2016-08-24 18:09 | PN ---
DATE OF SERVICE: 08/24/2016 Nisha is seen on rounds. She is postoperative day one from a sigmoid resection for perforated diverticulitis. She is doing fairly well, having expected incisional pain. No nausea or vomiting. No flatus. PHYSICAL EXAM: She has been afebrile. Her pulse rate has been in the 90s to 100s, respirations have been 20s to 30s, blood pressure has been in 100s to 120s systolic. Her heart is regular rate and rhythm at this time. LUNGS: No wheezes, diminished at the right base. ABDOMEN: Soft. The dressing is intact, clean, and dry. The ostomy is pink and viable. There is a little ecchymosis along some of the edges. LAB: Her white count was 5100, hemoglobin is 10.6. Her sodium and potassium are within normal range. Blood sugars have been running in the 150 to 250 range. ASSESSMENT: 1. Postoperative day one Maged's procedure for perforated diverticulitis. 2. Paralysis of the right hemidiaphragm of uncertain etiology. PLAN: I expect her to have a prolonged ileus due to the amount of inflammatory changes and exudate on the small bowel. Therefore, will see about a dual lumen PICC line and start TPN on her tomorrow. Continue IV antibiotics and supportive care. She is progressing slowly.
[2016-08-24] MEDS ORDERED: ACETAMINOPHEN IV (For NPO) 1,000 MG in EMPTY BAG 1 BAG IVPB PRN (21:10)
[2016-08-24] MEDS: METOPROLOL TARTRATE 5 MG/5 ML VIAL IVP SCH (21:46)
[2016-08-24 21:51] LABS: Glucose,Whole Blood 155 mg/dL (75-99)
[2016-08-25] MEDS: HYDROmorphone 1 MG/ML 1 ML SYRINGE IVP PRN ×4 (02:50→22:11)
[2016-08-25] MEDS: METOPROLOL TARTRATE 5 MG/5 ML VIAL IVP SCH ×5 (02:51→23:59)
[2016-08-25 05:05] LABS: Basophils % (A) 0 %; CH 29.4; CHCM 31.6; Eosinophils % (A) 0 %; HCT 34.7 % (34.0-46.0); HDW 2.93; Hypochromasia Slight; Luc # (Auto) 0.06; Luc % (Auto) 1; Lymphocytes # (A) 0.6 k/uL (1.0-4.8); Lymphocytes % (A) 9 %; MCH 29.5 pg (25.0-35.0); MCHC 31.6 g/dL (31.0-37.0); MCV 93.2 fL (80.0-100.0); Mean Platelet Volume 7.8; Monocytes # (A) 0.2 k/uL (0-1.0); Monocytes % (A) 3 %; Neutrophils # (A) 5.6 k/uL (1.3-7.7); Neutrophils % (A) 87 %; RBC 3.72 m/uL (3.80-5.40); RDW 14.1 % (11.5-15.5); WBC 6.4 k/uL (3.8-10.6); WBC (Perox) 6.68
[2016-08-25 05:17] LABS: Anion Gap 6 mmol/L; Blood Urea Nitrogen 9 mg/dL (7-17); Calcium 7.5 mg/dL (8.4-10.2); Carbon Dioxide 23 mmol/L (22-30); Chloride 109 mmol/L (98-107); Glucose 122 mg/dL (74-99); Magnesium 2.1 mg/dL (1.6-2.3); Non-African American GFR(MDRD) >60 (>60 ml/min/1.73 sqM); Phosphorous 2.4 mg/dL (2.5-4.5); Potassium 4.6 mmol/L (3.5-5.1); Sodium 138 mmol/L (137-145)
[2016-08-25] MEDS ORDERED: SODIUM PHOSPHATE 10 MMOL in SODIUM CHLORIDE 0.9% 250 ML IVPB ONE (05:25)
[2016-08-25] MEDS: FORMOTEROL FUMARATE 20 MCG/2 ML NEBU INHALATION SCH ×3 (07:41→20:02)
[2016-08-25] MEDS: PANTOPRAZOLE 40 MG/10 ML VIAL IV SCH (08:33)
[2016-08-25] MEDS: PIPERACILLIN-TAZOBACTAM 3.375 GM in DEXTROSE/WATER 1 50ML.BAG IVPB SCH ×2 (08:33→16:21)
[2016-08-25] MEDS: IPRATROPIUM-ALBUTEROL 3 ML NEB INHALATION SCH ×5 (08:39→20:02)
[2016-08-25] MEDS: BUDESONIDE 1 MG/2 ML NEBU INHALATION SCH ×3 (08:39→20:02)
[2016-08-25] MEDS: INSULIN LISPRO (humaLOG) 300 UNIT/3 ML VIAL SQ SCH ×4 (08:40→23:58)
[2016-08-25 08:42] LABS: Glucose,Whole Blood 127 mg/dL (75-99)
--- NOTE | 2016-08-25 09:18 | XR ---
EXAMINATION TYPE: XR chest 1V DATE OF EXAM: 08/25/2016 6:40 AM COMPARISON: Prior chest x-ray August HISTORY: Pneumonia, abnormal chest x-ray TECHNIQUE: Single frontal view of the chest is obtained. FINDINGS: NG tube is present with the distal tip likely within the occipital small bowel or distal s tomach. Patient is rotated and there are overlying cardiac leads. Heart is enlarged. Right hemidiaphr agm is elevated. SPECT is an associated effusion. Exam is expiratory. No pneumothorax. IMPRESSION: Similar findings to prior exam. Elevated right hemidiaphragm, probable associated atelec tasis and effusion, correlate for possible pneumonia. Follow-up recommended.
[2016-08-25] MEDS ORDERED: LIDOCAINE 2% INJ 20 MG/ML SQ ONE (09:25)
--- NOTE | 2016-08-25 09:52 | XR ---
EXAMINATION TYPE: XR chest 1V confirm line plcmt DATE OF EXAM: 08/25/2016 9:42 AM COMPARISON: 08/25/2016 HISTORY: Line placement TECHNIQUE: Single frontal view of the chest is obtained. FINDINGS: Bilateral consolidation and right-sided pleural effusion are stable. Reduced inspiration a nd NG tube are noted. No pneumothorax. PICC line appears in good position. IMPRESSION: 1. PICC line appears in good position.
[2016-08-25] MEDS: ENOXAPARIN 40 MG/0.4 ML SYRINGE SQ SCH (10:08)
[2016-08-25] MEDS: 0.9% NACL WITH KCL 20 MEQ/L 1,000 ML IV SCH (10:09)
--- NOTE | 2016-08-25 11:46 | PN ---
DATE OF SERVICE: 08/24/2016 This 75-year-old woman was admitted with COPD, also had sigmoid perforation. The patient underwent laparotomy and Maged's procedure. The patient is being closely monitored. The patient is on broad-spectrum IV antibiotics. Dr. Siu is following the patient closely with Dr. Nelson. Dr. Siu is also recommending TPN. PICC line has been scheduled to be inserted tomorrow. The chest x-ray done today, which I personally reviewed, showed similar findings with bibasilar atelectasis and pneumonia. PAST MEDICAL HISTORY: Reviewed. REVIEW OF SYSTEMS: CARDIOVASCULAR: No angina or palpitations. RESPIRATORY: As mentioned. GI: As mentioned. : As mentioned. 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 Current medications reviewed and include: 1. Acyclovir 500 mg IV every 8 hours. 2. Albuterol q.i.d. and p.r.n. 3. DuoNeb q.i.d. and p.r.n. 4. Pulmicort 1 mg b.i.d. 5. Lovenox 40 mg p.o. daily. 6. Perforomist 20 mg b.i.d. 7. Dilaudid 0.5 mg every 2 hours p.r.n. 8. Levaquin 750 daily. 9. Ativan 0.5 mg every 4 hours p.r.n. 10. Reglan 10 mg every 4 hours p.r.n. 11. Lopressor 2.5 mg daily. 12. Narcan 0.2 every 2 hours p.r.n. 13. Zofran 4 mg every 8 hours. 14. Protonix 40 mg IV daily. 15. Zosyn 3.75 every 8. 16. IV fluids. Physical examination, the patient is alert, oriented x3, pulse is 114, blood pressure 130/76, temperature normal, pulse ox 94% on 2 liters. HEENT: Conjunctivae normal. Oral mucosa moist. NECK: No JVD or carotid bruits. CARDIOVASCULAR SYSTEM: S1, S2 muffled. LUNGS: Breath sounds diminished at the bases with bilateral scattered rhonchi and crackles. ABDOMEN: Soft, status post surgery. Postsurgical tenderness present. Otherwise, no guarding. Bowel sounds absent. NG tube inserted, draining mildly bilious fluid. EXTREMITIES: Legs, no edema. NERVOUS SYSTEM: Higher functions as mentioned. Otherwise diffusely weak. SKIN: No ulcers or rash. LABS: WBC 5.1, hemoglobin is 10.6, glucose 149, alk phos is 2.4, calcium 7.5. ASSESSMENT: 1. Acute sigmoid perforation status post laparotomy as well as Maged's procedure. 2. Chronic obstructive pulmonary disease, acute exacerbation, with multifocal right middle lobe pneumonia, possibly gram-negative, present on admission. 3. Mild polycythemia, possibly secondary to dehydration, present on admission. 4. Rule out right diaphragmatic palsy. 5. Herpes labialis. 6. Increased d-dimer with no evidence of pulmonary embolism. 7. Increased random blood sugar and diabetes mellitus type 2. 8. Hypertension, essential. 9. History of leaky heart valve. 10. History of hiatal hernia. 11. History of degenerative joint disease. 12. Mild hypocalcemia. 13. History of shingles. 14. History of back surgery. 15. History of degenerative joint disease. 16. History of cardiac catheterization. 17. History of anxiety. 18. FULL CODE. RECOMMENDATIONS AND DISCUSSION: In this 75-year-old woman who presented with multiple complex medical issues, I would recommend to continue the current medications. Continue symptomatic treatment. Continue bronchodilators. Continue with empiric antibiotics. Continue with antivirals. Continue with the rest of the medications. Monitor fluids and electrolyte balance closely. Otherwise PICC line and TPN. Closely follow with surgery. Otherwise, closely follow with Dr. Nelson. Prognosis is guarded. Further recommendations to follow.
[2016-08-25] MEDS ORDERED: INSULIN LISPRO (humaLOG) 300 UNIT/3 ML VIAL SQ SCH (12:15)
--- NOTE | 2016-08-25 12:18 | IR ---
EXAMINATION TYPE: IR cvc insert >=5 years DATE OF EXAM: 08/25/2016 10:03 AM COMPARISON: NONE HISTORY: For total parenteral nutrition FINDINGS: Maximal barrier technique was utilized. The skin overlying the left basilic vein was local ized with ultrasound and noted to be compressible and patent by ultrasound. An ultrasound image was obtained and submitted on patient's chart. Sterile technique utilized with the ultrasound machine. Th e skin overlying was prepped and draped and Lidocaine used for local anesthesia. A skin ulices was mad e with a scalpel. Access was gained to the vein under direct ultrasound guidance with a 21-gauge nee dle and a 0.018 inch wire was advanced. Access site was dilated with a peel-away sheath and the cath eter tailored to length. Catheter advanced centrally and a post procedure chest x-ray verified place ment with the tip at the superior vena caval level. Catheter was fixed to the skin with suture and a sterile dressing placed. Hemostasis achieved and the catheter was aspirated and flushed with steril e saline. The patient remained in stable condition. IMPRESSION: STATUS POST ULTRASOUND GUIDED PICC LINE PLACEMENT, READY FOR USE. THIS PROCEDURE WAS PER FORMED BY THE UNDERSIGNED.
[2016-08-25 12:35] LABS: Bilirubin, Delta 0.2 mg/dL (0.0-0.2); Total Bilirubin 0.5 mg/dL (0.2-1.3); Total Protein 4.3 g/dL (6.3-8.2)
[2016-08-25 12:42] LABS: Glucose,Whole Blood 129 mg/dL (75-99)
[2016-08-25] MEDS ORDERED: MVI, ADULT NO.4 WITH VIT K 10 ML, TRACE (CONC-1ML/DOSE) 1 ML in AMINO ACID 5%-D25W+LYTE... IV SCH ×3 (13:00)
[2016-08-25] MEDS: ACYCLOVIR SODIUM 500 MG in SODIUM CHLORIDE 0.9% 100 ML IVPB SCH ×2 (13:44→23:34)
--- NOTE | 2016-08-25 13:46 | CONS ---
DATE OF CONSULTATION: Nisha is a 75-year-old lady who was admitted to hospital with perforated bowel. We have been consulted because of PVCs. She does not have any cardiac symptoms, had normal coronaries on cardiac catheterization within the last few years. She had an echo done on this admission that revealed normal LV systolic function with an ejection fraction of 55 to 60%. The patient has history of chronic ventricular ectopy and takes a beta francisco. This has been switched to IV Lopressor as she is currently n.p.o. Past medical history is significant for [id number] diabetes, PVCs and COPD . Medications at home include: 1. Albuterol. 2. Xanax. 3. Aspirin. 4. Ibuprofen. 5. Toprol-XL 25 daily. 6. Restoril. 7. Janumet. THE PATIENT IS ALLERGIC TO SHELLFISH AND MORPHINE, CEFTIN, CODEINE, ERYTHROMYCIN, ( ), LISINOPRIL, DEMEROL, PERCOCET AND SEAFOOD. FAMILY HISTORY: Negative for premature coronary artery disease. SOCIAL HISTORY: Negative for smoking, ETOH abuse, or drug abuse. REVIEW OF SYSTEMS: HEENT: Unremarkable. CARDIAC: As described above. RESPIRATORY: Negative. GI: Negative. GENITOURINARY: Negative. Allergy/immunology: Negative. SKIN: Negative. MUSCULOSKELETAL: Negative. Dermatology: Negative. CONSTITUTIONAL: Negative. Oncological: Negative. The rest of the system review is not relevant. On exam, patient is comfortable at rest. Afebrile. Vital signs are stable. Chest exam reveals good air entry bilaterally. Heart exam reveals first and second heart sounds. No gallop. No murmur, no rub. ABDOMEN: Status post laparotomy and surgery. Exam of the extremities did not reveal any edema. Peripheral pulses are felt. MANAGER FLORAL exam did not reveal focal neurological deficits. Labs show that the hemoglobin is 11 and creatinine is 0.6. ASSESSMENT: 1. Premature ventricular contractions. 2. Acute abdomen status post surgery. PLAN: Patient's PVCs are chronic. Echo shows normal LV function and had prior normal cardiac cath. No further evaluation is needed. Continue with the IV Lopressor. When patient can take p.o. meds switch her to oral metoprolol.
--- NOTE | 2016-08-25 15:24 | P.PN ---
Subjective Principal diagnosis: Acute pneumoperitoneum secondary to perforated diverticulitis, right hemidiaphragm paralysis I was asked to evaluate this 75-year-old female patient for symptoms of pneumonia. Note that the patient was having some increased cough and congestion and dyspnea for the past 10 days. She was being treated by Keli Vargas NP, and initially she was given a course of amoxicillin followed by a Medrol Dosepak. Her symptoms remain unchanged and the patient was still having the same symptomatology and she was given Levaquin. During this time, the patient reported limited improvement if any and she also developed some herpetic lesions in her upper lips. No chills. No fever. No pleurisy. No chest pain. No trauma to the chest. No falls. No nausea. No vomiting. No diarrhea. No abdominal pain. No change in mental status. Ultimately the patient decided to come in to the hospital for further evaluation. The chest x-rays were done in the hospital showed significant elevation of the right hemidiaphragm which is a new findings compared to the previous chest x-rays. A CAT scan of the chest was also done and this is a CT angios done to rule out pulmonary embolism. The findings showed a patchy opacity within the medial right upper lobe of the lung with peribronchial thickening. However, the major abnormalities that was noted is in the right lower lobe where the right hemidiaphragm is felt to be quite elevated and that it probably some residual consolidation within the right lower lobe area. I do suspect an underlying diaphragmatic weakness/paralysis that has developed recently knowing that this abnormality was not present on previous x-rays that were done earlier on the same patient. For now, the patient has no other complaints. Her white cell count is at 10.4. She was started on IV Zosyn. She was started on bronchodilators. She was started on systemic steroids. She was started on Valtrex regarding her herpetic labial lesions. Pulmonate consultation was requested for further advice. Influenza A and B screen was negative. On 08/23/2016 the patient is being seen in follow-up. Note that on yesterday's evaluation of suspected a right hemidiaphragmatic paralysis and I sent this patient for a sniff test to confirm the findings. During her sniff test, the patient was found to have bilateral air under the diaphragms and this was consistent with pneumoperitoneum. Immediately the patient was evaluated and the patient seems to have developing increased abdominal pain and tenderness over the past 6-12 hours. Based on that, a stat consultation for surgery was placed and the patient was evaluated and seen by Dr. Siu and she'll be taken to the operating room. There is a suspicion that the patient has perforated day gastric ulcer or a perforated diverticulum. She will need an expiratory laparoscopy with possible open laparotomy. The findings of the x-ray were discussed with the patient length and she is aware of this. On 08/24/2016 the patient is being seen in follow-up. The patient is doing well. As mentioned earlier, the patient was taken to the operating room yesterday for pneumoperitoneum. She was found to have perforated diverticulitis. The surgery was done by Dr. Siu. The patient underwent diagnostic laparoscopy and following that she underwent sigmoid resection with Maloney's pouch and diverting colostomy for perforated diverticulitis. YUVAL drains were placed 2 and following that the patient was extubated and she was brought into the intensive care unit. Overnight the patient had some low urine output and she was given a bolus of 1 L of normal saline and currently she is on a maintenance of 1 25 mL an hour. She has a good urine output. No nausea. No vomiting. NG tube in place. The output from the NG tube is been around 500 mL since she arrived from the operating room. Colostomy site is viable and nonfunctional yet. No abdominal pain. No swelling lower extremities. No respiratory distress. Chest x-ray showing significant elevation of the right hemidiaphragm consistent with diaphragmatic paralysis. NG tube is in a good location. The patient remains on IV Zosyn. The white cell count is not elevated. Patient was reevaluated on 08/25/2016, seems to be doing very well, x-ray continues to show significant elevation of the right hemidiaphragm, patient tolerated surgery quite well, and she is scheduled to have a PICC line placement today. Patient will receive TPN, and I would likely keep her in the ICU today or possibly transfer later today to a regular medical floor. Remains on antibiotics for her abdominal sepsis. Presently she is in no form of respiratory distress. Objective - Vital Signs Vital signs: Vital Signs Temp 98.3 F 08/25/16 12:00 Pulse 105 H 08/25/16 14:00 Resp 20 08/25/16 14:00 BP 128/72 08/25/16 14:00 Pulse Ox 90 L 08/25/16 14:00 Intake & Output 08/24/16 08/25/16 08/25/16 18:59 06:59 18:59 Intake Total 1700 1400.0 250.0 Output Total 720 575 835 Balance 980 825.0 -585.0 Weight 75.1 kg 76.6 kg 76.6 kg Intake: Intake, IV Titration 1700 1400.0 250.0 Amount 0.9% NaCl with KCl 20 Meq 500 1000 100 /l 1,000 ml @ 100 mls/hr IV .Q10H [facility] Rx#: [id number] Acyclovir Sodium 500 mg 200 100 100 In Sodium Chloride 0.9% 100 ml @ 100 mls/hr IVPB Q8HR [facility] Rx#:[id number] Levofloxacin 750Mg-D5w 150 Pmx 750 mg In Dextrose/ Water 1 150ml.bag @ 100 mls/hr IVPB Q24H [facility] Rx#: [id number] Magnesium Sulfate-D5w Pmx 200 1 gm In Dextrose/Water 1 100ml.bag @ 100 mls/hr IVPB Q1H [facility] Rx#: [id number] Piperacillin-Tazobactam 3 100 50.0 50.0 .375 gm In Dextrose/Water 1 50ml.bag @ 12.5 mls/hr IVPB Q8HR [facility] Rx#: [id number] Sodium Chloride 0.9% 1, 200 000 ml Potassium Chloride 20 ml @ 100 mls/hr IV . [id number] [facility] Rx#:[id number] Sodium Chloride 0.9% 500 100 ml @ 999 mls/hr IV .Q31M [facility] Rx#:[id number] Sodium Phosphate 10 mmol 250 In Sodium Chloride 0.9% 250 ml @ 125 mls/hr IVPB ONCE [facility] Rx#:[id number] Sodium Phosphate 10 mmol 250 In Sodium Chloride 0.9% 250 ml @ 125 mls/hr IVPB ONCE [facility] Rx#:[id number] Output: Gastric Drainage 300 Drainage 70 45 90 Right Lower Abdomen 30 5 40 Right Upper Abdomen 40 40 50 Urine 650 530 445 Other: Voiding Method Indwelling Catheter Indwelling Catheter Indwelling Catheter # Voids 2 - Exam Head exam was generally normal. There was no scleral icterus or corneal arcus. Mucous membranes were moist.Neck was supple and without jugular venous distension, thyromegaly, or carotid bruits. Carotids were easily palpable bilaterally. There was no adenopathy. Lung sounds are markedly diminished in the right lung base.Cardiac exam revealed the PMI to be normally situated and sized. The rhythm was regular and no extrasystoles were noted during several minutes of auscultation. The first and second heart sounds were normal and physiologic splitting of the second heart sound was noted. There were no murmurs , rubs, clicks, or gallops. Abdomen is soft. The patient is diabetic colostomy site which is intact. No direct tenderness. No rebound tenderness. No guarding. Bowel sounds are hypoactive. Incision is dry clean and intact. The YUVAL drains are in place.Examination of the extremities revealed easily palpable radial, femoral and pedal pulses. There was no cyanosis, clubbing or edema. - Labs CBC & Chem 7: 08/25/16 04:04 08/25/16 04:04 Labs: Abnormal Lab Results - Last 24 Hours (Table) 08/24/16 08/24/16 08/25/16 Range/Units 17:15 21:50 04:04 RBC 3.72 L (3.80-5.40) m/uL Hgb 11.0 L (11.4-16.0) gm/dL Lymphocytes # 0.6 L (1.0-4.8) k/uL Chloride (98-107) mmol/L Glucose (74-99) mg/dL POC Glucose (mg/dL) 132 H 155 H (75-99) mg/dL Calcium (8.4-10.2) mg/dL Phosphorus (2.5-4.5) mg/dL Total Protein (6.3-8.2) g/dL Albumin (3.5-5.0) g/dL 08/25/16 08/25/16 08/25/16 Range/Units 04:04 04:04 08:40 RBC (3.80-5.40) m/uL Hgb (11.4-16.0) gm/dL Lymphocytes # (1.0-4.8) k/uL Chloride 109 H (98-107) mmol/L Glucose 122 H (74-99) mg/dL POC Glucose (mg/dL) 127 H (75-99) mg/dL Calcium 7.5 L (8.4-10.2) mg/dL Phosphorus 2.4 L (2.5-4.5) mg/dL Total Protein 4.3 L (6.3-8.2) g/dL Albumin 2.1 L (3.5-5.0) g/dL 08/25/16 Range/Units 12:40 RBC (3.80-5.40) m/uL Hgb (11.4-16.0) gm/dL Lymphocytes # (1.0-4.8) k/uL Chloride (98-107) mmol/L Glucose (74-99) mg/dL POC Glucose (mg/dL) 129 H (75-99) mg/dL Calcium (8.4-10.2) mg/dL Phosphorus (2.5-4.5) mg/dL Total Protein (6.3-8.2) g/dL Albumin (3.5-5.0) g/dL Assessment and Plan Plan: 1 acute pneumoperitoneum attributed to a perforated diverticulitis. The patient had a sigmoid resection with Maloney's pouch and diverting colostomy and the patient is postop day # 2 She remains on IV Zosyn. She is hemodynamically stable. She was weaned off the mechanical ventilator and extubated without any major difficulties. 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 Less likely is the possibility of a pneumonia. 3 shortness of breath secondary to above 4 preserved LV function with moderate degree of concentric left Hypertrophy/ hypertensive heart disease based on echocardiogram 5 diabetes mellitus 6 obesity 7 osteoarthritis Recommendation: Continue present course of treatment including antibiotics, she is on Zosyn, patient is scheduled to have a PICC line placed today, and she will be receiving TPN via PICC line. Continue incentive spirometry, and supportive care measures. Likely transfer out of the ICU today to a regular medical floor. We'll continue to follow Time with Patient: Less than 30
[2016-08-25] MEDS: ABREVA TOPICAL SCH ×4 (16:21→23:36)
[2016-08-25] MEDS: FAT EMULSION 20% 250 ML in EMPTY BAG 1 BAG IV SCH (17:07)
[2016-08-25 17:17] LABS: Glucose,Whole Blood 221 mg/dL (75-99)
[2016-08-25] MEDS: LEVOFLOXACIN 750MG-D5W PMX 750 MG in DEXTROSE/WATER 1 150ML.BAG IVPB SCH (20:13)
--- NOTE | 2016-08-25 20:25 | PN ---
Nisha is seen on rounds. She is complaining of the NG tube. She says she is coughing better today. She was up to a chair, having mild incisional pain. PHYSICAL EXAMINATION: Pulse rate has been going up. She received some medication for it. It has been in the 100 and teens to 130s. Respirations are generally in the teens to low 120s, but it will pop up to the 30s with exertion. O2 sat is good on nasal cannula. HEART: Tachycardic. Regular rhythm. Lungs are diminished at the right base. ABDOMEN: Soft. Rare bowel sounds. The incisions are intact, and dry. No evidence of cellulitis. There are nessa in place. Ostomy is viable. No significant flatus or stool in the bag. LAB: Her white count is 6400, hemoglobin is 11.0, sodium and potassium are within normal range. ASSESSMENT: 1. Postoperative day 2 Maged's procedure for perforated diverticulitis. 2. Paralysis of the right hemidiaphragm. 3. Expected postoperative ileus. PLAN: She is going down for a dual-lumen PICC line for initiation of TPN. Encourage activity. Progressing slowly.
[2016-08-25 23:43] LABS: Glucose,Whole Blood 245 mg/dL (75-99)
[2016-08-26] MEDS: PIPERACILLIN-TAZOBACTAM 3.375 GM in DEXTROSE/WATER 1 50ML.BAG IVPB SCH ×3 (01:17→17:48)
[2016-08-26] MEDS: HYDROmorphone 1 MG/ML 1 ML SYRINGE IVP PRN ×5 (01:21→22:24)
[2016-08-26] MEDS: 0.9% NACL WITH KCL 20 MEQ/L 1,000 ML IV SCH ×5 (04:23→16:31)
[2016-08-26 05:00] LABS: Basophils % (A) 0 %; CH 29.2; CHCM 32.1; Eosinophils % (A) 1 %; HCT 33.6 % (34.0-46.0); HDW 3.07; HGB 10.8 gm/dL (11.4-16.0); Hypochromasia Slight; Luc # (Auto) 0.06; Luc % (Auto) 1; Lymphocytes # (A) 0.5 k/uL (1.0-4.8); Lymphocytes % (A) 8 %; MCH 29.4 pg (25.0-35.0); MCHC 32.2 g/dL (31.0-37.0); MCV 91.3 fL (80.0-100.0); Mean Platelet Volume 8.4; Monocytes # (A) 0.3 k/uL (0-1.0); Monocytes % (A) 5 %; Neutrophils # (A) 5.2 k/uL (1.3-7.7); Neutrophils % (A) 85 %; RBC 3.68 m/uL (3.80-5.40); RDW 13.8 % (11.5-15.5); WBC 6.1 k/uL (3.8-10.6); WBC (Perox) 6.62
[2016-08-26 05:16] LABS: Ionized Calcium 4.9 mg/dL (4.5-5.3)
[2016-08-26 05:46] LABS: Anion Gap 6 mmol/L; Blood Urea Nitrogen 7 mg/dL (7-17); Calcium 7.9 mg/dL (8.4-10.2); Carbon Dioxide 28 mmol/L (22-30); Chloride 102 mmol/L (98-107); Glucose 207 mg/dL (74-99); Non-African American GFR(MDRD) >60 (>60 ml/min/1.73 sqM); Phosphorous 2.4 mg/dL (2.5-4.5); Potassium 3.9 mmol/L (3.5-5.1); Sodium 136 mmol/L (137-145)
[2016-08-26 06:13] LABS: Glucose,Whole Blood 218 mg/dL (75-99)
[2016-08-26] MEDS: ABREVA TOPICAL SCH ×4 (06:51→20:06)
[2016-08-26] MEDS: METOPROLOL TARTRATE 5 MG/5 ML VIAL IVP SCH ×4 (06:52→21:10)
[2016-08-26] MEDS: ACYCLOVIR SODIUM 500 MG in SODIUM CHLORIDE 0.9% 100 ML IVPB SCH ×3 (07:14→22:25)
--- NOTE | 2016-08-26 07:22 | XR ---
EXAMINATION TYPE: XR chest 1V DATE OF EXAM: 08/26/2016 6:52 AM COMPARISON: 08/25/2016 HISTORY: Shortness of breath TECHNIQUE: Single frontal view of the chest is obtained. FINDINGS: PICC line stable. NG tube stable. Right-sided consolidation with elevated hemidiaphragm an d pleural effusion are stable. Left lung is unchanged in appearance with subsegmental basilar changes . IMPRESSION: 1. Stable basilar consolidation and right pleural effusion.
[2016-08-26] MEDS: IPRATROPIUM-ALBUTEROL 3 ML NEB INHALATION SCH ×5 (07:23→20:26)
[2016-08-26] MEDS: BUDESONIDE 1 MG/2 ML NEBU INHALATION SCH ×2 (07:23→20:26)
[2016-08-26] MEDS: FORMOTEROL FUMARATE 20 MCG/2 ML NEBU INHALATION SCH ×2 (07:23→20:26)
[2016-08-26] MEDS: INSULIN LISPRO (humaLOG) 300 UNIT/3 ML VIAL SQ SCH ×3 (07:52→18:13)
[2016-08-26] MEDS: ENOXAPARIN 40 MG/0.4 ML SYRINGE SQ SCH (09:10)
[2016-08-26] MEDS: PANTOPRAZOLE 40 MG/10 ML VIAL IV SCH (09:10)
--- NOTE | 2016-08-26 09:11 | PN ---
DATE OF SERVICE: 08/25/2016 This 75-year-old woman who was admitted with suspected pneumonia and as well as diaphragmatic paralysis on the right side, also had sigmoid perforation. The patient underwent exploratory laparotomy and as well as Maged's procedure by Dr. Siu. The patient still has NG tube. PICC line was inserted for TPN. This patient is closely monitored in the ICU. PAST MEDICAL HISTORY: Reviewed. REVIEW OF SYSTEMS: CARDIOVASCULAR: No angina. RESPIRATORY: Occasional cough. GI: As mentioned earlier. : No dysuria. NERVOUS SYSTEM: No numbness or weakness. Current medications are reviewed and include: 1. Tylenol 1000 mg q.6 p.r.n. 2. Acyclovir 110 q.8 p.r.n. 3. Ventolin . 4. DuoNeb q.i.d. and p.r.n. 5. Pulmicort 1 mg b.i.d. 6. Lovenox 40 mg subcutaneous. 7. TPN. 8. Perforomist 20 b.i.d. 9. Dilaudid 0.5 to 1 mg p.r.n. 10. Levaquin 750 q.24 hours. 11. Ativan 1 mg q.4 p.r.n. 12. Reglan. 13. Lopressor. 14. Narcan. 15. Zofran. 16. Protonix. 17. P.r.n. medications. PHYSICAL EXAMINATION: The patient is alert and oriented x3. Pulse is 109, blood pressure 149/57, respiratory rate 20, temperature 98.2, pulse ox 94% on 5 L. HEENT: Conjunctivae normal. NECK: No jugular venous distention. CARDIOVASCULAR: S1 and S2, muffled. RESPIRATORY: Breath sounds diminished at the bases. A few scattered rhonchi and crackles. Expiratory wheezing also present. ABDOMEN: Soft, obese, status post surgery. LEGS: No edema, no swelling. NERVOUS SYSTEM: No focal deficits. Labs are WBC 6.4, hemoglobin 11. Glucose 129, 221. ASSESSMENT: 1. Acute sigmoid perforation, status post laparotomy as well as Maged's procedure. 2. Chronic obstructive pulmonary disease, acute exacerbation, with multifocal right middle lobe pneumonia, possibly gram negative present on admission. 3. Mild polycythemia, possibly secondary to dehydration, present on admission. 4. Rule out right diaphragmatic palsy. 5. Herpes labialis. 6. Increased D-dimer with no evidence of pulmonary embolism. 7. Increased random blood sugar with diabetes mellitus type 2. 8. Hypertension, essential. 9. History of leaky heart valve. 10. History of hiatal hernia. 11. History of degenerative joint disease. 12. History of mild hypocalcemia. 13. History of shingles. 14. History of back surgery. 15. History of degenerative joint disease. 16. History of cardiac catheterization. 17. History of anxiety. 18. FULL CODE. RECOMMENDATIONS AND DISCUSSION: Recommend to continue current medications. Continue to monitor and continue symptomatic treatment. Incentive spirometry. Continue with empiric antibiotics. Follow the cultures. Continue the TPN. Repeat labs. DVT prophylaxis. Closely monitored with Surgery. Guarded prognosis. Further recommendations to follow. MTDD
[2016-08-26] MEDS ORDERED: POTASSIUM CHLORIDE 20 MEQ in WATER FOR INJECTION 1 100ML.BAG IVPB ONE (10:30)
[2016-08-26] MEDS ORDERED: SODIUM PHOSPHATE 10 MMOL in SODIUM CHLORIDE 0.9% 100 ML IVPB ONE (10:30)
[2016-08-26] MEDS: LORazepam 2 MG/ML SYRINGE IV PRN ×2 (11:19→15:57)
--- NOTE | 2016-08-26 11:47 | P.PN ---
Subjective Principal diagnosis: Acute pneumoperitoneum secondary to perforated diverticulitis, right hemidiaphragm paralysis I was asked to evaluate this 75-year-old female patient for symptoms of pneumonia. Note that the patient was having some increased cough and congestion and dyspnea for the past 10 days. She was being treated by Keli Vargas NP, and initially she was given a course of amoxicillin followed by a Medrol Dosepak. Her symptoms remain unchanged and the patient was still having the same symptomatology and she was given Levaquin. During this time, the patient reported limited improvement if any and she also developed some herpetic lesions in her upper lips. No chills. No fever. No pleurisy. No chest pain. No trauma to the chest. No falls. No nausea. No vomiting. No diarrhea. No abdominal pain. No change in mental status. Ultimately the patient decided to come in to the hospital for further evaluation. The chest x-rays were done in the hospital showed significant elevation of the right hemidiaphragm which is a new findings compared to the previous chest x-rays. A CAT scan of the chest was also done and this is a CT angios done to rule out pulmonary embolism. The findings showed a patchy opacity within the medial right upper lobe of the lung with peribronchial thickening. However, the major abnormalities that was noted is in the right lower lobe where the right hemidiaphragm is felt to be quite elevated and that it probably some residual consolidation within the right lower lobe area. I do suspect an underlying diaphragmatic weakness/paralysis that has developed recently knowing that this abnormality was not present on previous x-rays that were done earlier on the same patient. For now, the patient has no other complaints. Her white cell count is at 10.4. She was started on IV Zosyn. She was started on bronchodilators. She was started on systemic steroids. She was started on Valtrex regarding her herpetic labial lesions. Pulmonate consultation was requested for further advice. Influenza A and B screen was negative. On 08/23/2016 the patient is being seen in follow-up. Note that on yesterday's evaluation of suspected a right hemidiaphragmatic paralysis and I sent this patient for a sniff test to confirm the findings. During her sniff test, the patient was found to have bilateral air under the diaphragms and this was consistent with pneumoperitoneum. Immediately the patient was evaluated and the patient seems to have developing increased abdominal pain and tenderness over the past 6-12 hours. Based on that, a stat consultation for surgery was placed and the patient was evaluated and seen by Dr. Siu and she'll be taken to the operating room. There is a suspicion that the patient has perforated day gastric ulcer or a perforated diverticulum. She will need an expiratory laparoscopy with possible open laparotomy. The findings of the x-ray were discussed with the patient length and she is aware of this. On 08/24/2016 the patient is being seen in follow-up. The patient is doing well. As mentioned earlier, the patient was taken to the operating room yesterday for pneumoperitoneum. She was found to have perforated diverticulitis. The surgery was done by Dr. Siu. The patient underwent diagnostic laparoscopy and following that she underwent sigmoid resection with Maloney's pouch and diverting colostomy for perforated diverticulitis. YUVAL drains were placed 2 and following that the patient was extubated and she was brought into the intensive care unit. Overnight the patient had some low urine output and she was given a bolus of 1 L of normal saline and currently she is on a maintenance of 1 25 mL an hour. She has a good urine output. No nausea. No vomiting. NG tube in place. The output from the NG tube is been around 500 mL since she arrived from the operating room. Colostomy site is viable and nonfunctional yet. No abdominal pain. No swelling lower extremities. No respiratory distress. Chest x-ray showing significant elevation of the right hemidiaphragm consistent with diaphragmatic paralysis. NG tube is in a good location. The patient remains on IV Zosyn. The white cell count is not elevated. Patient was reevaluated on 08/25/2016, seems to be doing very well, x-ray continues to show significant elevation of the right hemidiaphragm, patient tolerated surgery quite well, and she is scheduled to have a PICC line placement today. Patient will receive TPN, and I would likely keep her in the ICU today or possibly transfer later today to a regular medical floor. Remains on antibiotics for her abdominal sepsis. Presently she is in no form of respiratory distress. Patient was reevaluated today on 08/26/2016, continues to do well, were still waiting for a bed to be available on a regular medical floor to transfer the patient to a regular medical floor. No major issues overnight. Patient had a PICC line placed uneventfully. And TPN was started. Labs were reviewed, she has a relatively normal basic metabolic profile and normal CBC except for hemoglobin of 10.8. Objective - Vital Signs Vital signs: Vital Signs Temp 98.9 F 08/26/16 00:00 Pulse 104 H 08/26/16 11:38 Resp 15 08/26/16 08:00 BP 133/77 08/26/16 07:00 Pulse Ox 96 08/26/16 07:00 Intake & Output 08/25/16 08/26/16 08/26/16 18:59 06:59 18:59 Intake Total 591.0 1551.0 655 Output Total 1365 1210 1700 Balance -774.0 341.0 -1045 Weight 76.6 kg 82 kg Intake: IV 400 125 0.9% NaCl with KCl 20 Meq 400 125 /l 1,000 ml @ 100 mls/hr IV .Q10H [facility] Rx#: [id number] Intake, IV Titration 591.0 1151.0 330 Amount 0.9% NaCl with KCl 20 Meq 300 100 /l 1,000 ml @ 100 mls/hr IV .Q10H [facility] Rx#: [id number] Acyclovir Sodium 500 mg 250 In Sodium Chloride 0.9% 100 ml @ 100 mls/hr IVPB Q8H [facility] Rx#:[id number] Acyclovir Sodium 500 mg 100 In Sodium Chloride 0.9% 100 ml @ 100 mls/hr IVPB Q8HR [facility] Rx#:[id number] Fat Emulsion 20% 250 ml 21 231 In Empty Bag 1 bag @ 21 mls/hr IV [id number]@1800 [facility] Rx#:[id number] Levofloxacin 750Mg-D5w 100 Pmx 750 mg In Dextrose/ Water 1 150ml.bag @ 100 mls/hr IVPB Q24H [facility] Rx#: [id number] Levofloxacin 750Mg-D5w 100 Pmx 750 mg In Dextrose/ Water 1 150ml.bag @ 100 mls/hr IVPB Q24H [facility] Rx#: [id number] Mvi, Adult No.4 with Vit 120 270 180 K 10 ml Trace (Conc-1Ml/ Dose) 1 ml In Amino Acid 5%-D25w+Lytes*E* 1,000 ml @ 30 mls/hr IV .Q24H [facility] Rx#:[id number] Piperacillin-Tazobactam 3 50.0 100.0 50 .375 gm In Dextrose/Water 1 50ml.bag @ 12.5 mls/hr IVPB Q8HR [facility] Rx#: [id number] Potassium Chloride 20 meq 100 In Water For Injection 1 100ml.bag @ 50 mls/hr IVPB ONCE ONE Rx#: [id number] Oral 200 Output: Gastric Drainage 300 500 Drainage 90 100 Right Lower Abdomen 40 50 Right Upper Abdomen 50 50 Urine 825 1130 1100 Oral Regurgitation 150 80 Other: Voiding Method Indwelling Catheter Indwelling Catheter Indwelling Catheter # Voids 2 - Exam Physical Exam: Revealed a 75-year-old female in no distress HEENT:[Neck is supple.] [No neck masses.] [No thyromegaly.] [No JVD.] Healing viral lesions noted on the lips Chest: [Clear throughout, no crackles, no rhonchi, no wheezes.] Cardiac Exam: [Normal S1 and S2, no S3 gallop, no murmur.] Abdomen: [Colostomy seems to be intact, and abdomen findings are benign Extremities: [No clubbing, no edema, no cyanosis.] Neurological Exam: [No focal neurologic deficit.] - Labs CBC & Chem 7: 08/26/16 04:30 08/26/16 04:30 Labs: Abnormal Lab Results - Last 24 Hours (Table) 08/25/16 08/25/16 08/25/16 Range/Units 04:04 12:40 17:14 RBC (3.80-5.40) m/uL Hgb (11.4-16.0) gm/dL Hct (34.0-46.0) % Lymphocytes # (1.0-4.8) k/uL Sodium (137-145) mmol/L Glucose (74-99) mg/dL POC Glucose (mg/dL) 129 H 221 H (75-99) mg/dL Calcium (8.4-10.2) mg/dL Phosphorus (2.5-4.5) mg/dL Total Protein 4.3 L (6.3-8.2) g/dL Albumin 2.1 L (3.5-5.0) g/dL 03/20/17 03/21/17 03/21/17 Range/Units 23:40 04:30 04:30 RBC 3.68 L (3.80-5.40) m/uL Hgb 10.8 L (11.4-16.0) gm/dL Hct 33.6 L (34.0-46.0) % Lymphocytes # 0.5 L (1.0-4.8) k/uL Sodium 136 L (137-145) mmol/L Glucose 207 H (74-99) mg/dL POC Glucose (mg/dL) 245 H (75-99) mg/dL Calcium 7.9 L (8.4-10.2) mg/dL Phosphorus 2.4 L (2.5-4.5) mg/dL Total Protein (6.3-8.2) g/dL Albumin (3.5-5.0) g/dL 08/26/16 Range/Units 06:11 RBC (3.80-5.40) m/uL Hgb (11.4-16.0) gm/dL Hct (34.0-46.0) % Lymphocytes # (1.0-4.8) k/uL Sodium (137-145) mmol/L Glucose (74-99) mg/dL POC Glucose (mg/dL) 218 H (75-99) mg/dL Calcium (8.4-10.2) mg/dL Phosphorus (2.5-4.5) mg/dL Total Protein (6.3-8.2) g/dL Albumin (3.5-5.0) g/dL Assessment and Plan Plan: 1 acute pneumoperitoneum attributed to a perforated diverticulitis. The patient had a sigmoid resection with Maloney's pouch and diverting colostomy and the patient is postop day # 3 She remains on IV Zosyn. She is hemodynamically stable. She was weaned off the mechanical ventilator and extubated without any major difficulties. 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 Less likely is the possibility of a pneumonia. Chest x-ray seems to be improving today and that is better aeration of the right lung. 3 shortness of breath secondary to above 4 preserved LV function with moderate degree of concentric left Hypertrophy/ hypertensive heart disease based on echocardiogram 5 diabetes mellitus 6 obesity 7 osteoarthritis Recommendation: Continue present course of treatment including antibiotics, she is on Zosyn, transfer patient out of the ICU to a regular medical floor today. Time with Patient: Less than 30
[2016-08-26 12:22] LABS: Glucose,Whole Blood 245 mg/dL (75-99)
[2016-08-26] MEDS ORDERED: MVI, ADULT NO.4 WITH VIT K 10 ML, TRACE (CONC-1ML/DOSE) 1 ML in AMINO ACID 5%-D25W+LYTE... IV SCH ×3 (13:00)
--- NOTE | 2016-08-26 13:10 | P.PN ---
Subjective Principal diagnosis: Perforated diverticulitis, status post Maged's procedure The patient is seen on rounds. She's having mild incisional pain. Doing better with her incentive spirometry. She did get up out of bed today. She is anxious to of her nasogastric tube out. Objective - Vital Signs Vital signs: Vital Signs Temp 98.9 F 08/26/16 00:00 Pulse 104 H 08/26/16 11:49 Resp 15 08/26/16 08:00 BP 133/77 08/26/16 07:00 Pulse Ox 96 08/26/16 07:00 Intake & Output 08/25/16 08/26/16 08/26/16 18:59 06:59 18:59 Intake Total 591.0 1551.0 655 Output Total 1365 1210 1700 Balance -774.0 341.0 -1045 Weight 76.6 kg 82 kg Intake: IV 400 125 0.9% NaCl with KCl 20 Meq 400 125 /l 1,000 ml @ 100 mls/hr IV .Q10H [facility] Rx#: [id number] Intake, IV Titration 591.0 1151.0 330 Amount 0.9% NaCl with KCl 20 Meq 300 100 /l 1,000 ml @ 100 mls/hr IV .Q10H [facility] Rx#: [id number] Acyclovir Sodium 500 mg 250 In Sodium Chloride 0.9% 100 ml @ 100 mls/hr IVPB Q8H [facility] Rx#:[id number] Acyclovir Sodium 500 mg 100 In Sodium Chloride 0.9% 100 ml @ 100 mls/hr IVPB Q8HR [facility] Rx#:[id number] Fat Emulsion 20% 250 ml 21 231 In Empty Bag 1 bag @ 21 mls/hr IV MoWeFr@1800 [facility] Rx#:[id number] Levofloxacin 750Mg-D5w 100 Pmx 750 mg In Dextrose/ Water 1 150ml.bag @ 100 mls/hr IVPB Q24H [facility] Rx#: [id number] Levofloxacin 750Mg-D5w 100 Pmx 750 mg In Dextrose/ Water 1 150ml.bag @ 100 mls/hr IVPB Q24H [facility] Rx#: [id number] Mvi, Adult No.4 with Vit 120 270 180 K 10 ml Trace (Conc-1Ml/ Dose) 1 ml In Amino Acid 5%-D25w+Lytes*E* 1,000 ml @ 30 mls/hr IV .Q24H [facility] Rx#:[id number] Piperacillin-Tazobactam 3 50.0 100.0 50 .375 gm In Dextrose/Water 1 50ml.bag @ 12.5 mls/hr IVPB Q8HR [facility] Rx#: [id number] Potassium Chloride 20 meq 100 In Water For Injection 1 100ml.bag @ 50 mls/hr IVPB ONCE ONE Rx#: [id number] Oral 200 Output: Gastric Drainage 300 500 Drainage 90 100 Right Lower Abdomen 40 50 Right Upper Abdomen 50 50 Urine 825 1130 1100 Oral Regurgitation 150 80 Other: Voiding Method Indwelling Catheter Indwelling Catheter Indwelling Catheter # Voids 2 - Constitutional General appearance: Present: cooperative, no acute distress - Respiratory Respiratory: right: diminished, bilateral: CTA - Gastrointestinal General gastrointestinal: Present: absent bowel sounds, soft Localized gastrointestinal: surgical scar: midline (Incisions are intact clean and dry. Ostomy is pink and viable. No significant air in the bag. There is a small amount of stool.) - Labs CBC & Chem 7: 08/26/16 04:30 08/26/16 04:30 Labs: Abnormal Lab Results - Last 24 Hours (Table) 08/25/16 08/25/16 08/26/16 Range/Units 17:14 23:40 04:30 RBC 3.68 L (3.80-5.40) m/uL Hgb 10.8 L (11.4-16.0) gm/dL Hct 33.6 L (34.0-46.0) % Lymphocytes # 0.5 L (1.0-4.8) k/uL Sodium (137-145) mmol/L Glucose (74-99) mg/dL POC Glucose (mg/dL) 221 H 245 H (75-99) mg/dL Calcium (8.4-10.2) mg/dL Phosphorus (2.5-4.5) mg/dL 08/26/16 08/26/16 08/26/16 Range/Units 04:30 06:11 12:20 RBC (3.80-5.40) m/uL Hgb (11.4-16.0) gm/dL Hct (34.0-46.0) % Lymphocytes # (1.0-4.8) k/uL Sodium 136 L (137-145) mmol/L Glucose 207 H (74-99) mg/dL POC Glucose (mg/dL) 218 H 245 H (75-99) mg/dL Calcium 7.9 L (8.4-10.2) mg/dL Phosphorus 2.4 L (2.5-4.5) mg/dL Assessment and Plan (1) Diaphragmatic paralysis Status: Acute (2) Perforation of sigmoid colon due to diverticulitis Status: Acute Plan: She is progressing slowly. There is still no significant bowel sounds or air in her ostomy appliance. We'll continue the NG tube at this point. Encourage activity. She is awaiting transfer to a surgical floor. We'll order physical therapy. Remove the catheter. Progressing slowly.
[2016-08-26] MEDS: HALOPERIDOL LACTATE 5 MG/ML 1 ML VIAL IVP PRN ×2 (17:14→23:30)
[2016-08-26 18:14] LABS: Glucose,Whole Blood 260 mg/dL (75-99)
[2016-08-26] MEDS: LEVOFLOXACIN 750MG-D5W PMX 750 MG in DEXTROSE/WATER 1 150ML.BAG IVPB SCH (20:04)
--- NOTE | 2016-08-26 20:34 | PN ---
DATE OF SERVICE: 08/26/2016 This 75-year-old woman who was admitted with acute sigmoid perforation had laparotomy as well as Maged's procedure. The patient still has NG tube at this time. The patient also has chronic obstructive pulmonary disease. The patient also complained of generalized tiredness and weakness. The patient being closely monitored in the ICU. Dr. Bowen and Dr. Siu is following the patient closely. The most recent chest x-ray done today which was reviewed showed stable bibasilar consolidation right pleural effusion. PAST MEDICAL HISTORY: Reviewed. REVIEW OF SYSTEMS: CARDIOVASCULAR: No angina or palpitations. RESPIRATORY: As mentioned earlier. GI: As mentioned earlier. : No dysuria. Nervous system: No numbness or weakness. Current medications are reviewed and include: 1. Ceclor 5 mg q.8. 2. Albuterol q.6 p.r.n. 3. DuoNeb q.i.d. and p.r.n. 4. Pulmicort 1 mg b.i.d. 5. Lovenox 40 mg p.o. daily. 6. TPN. 7. Perforomist 20 mcg b.i.d. 8. Dilaudid 0.5 to 1 mg q.3 p.r.n. 9. Levaquin 750 daily. 10. Ativan 1 mg q.4 p.r.n. 11. Reglan 10 mg q.6. 12. Lopressor 12.5 mg q.6. 13. Narcan. 14. Zofran 40 mg IV daily. 15. Zosyn 3.37 IV q.8. PHYSICAL EXAMINATION: Patient is alert and oriented times three. Pulse 106, blood pressure 110/59, respirations 20, temperature normal, pulse ox 95% on 2 liters. HEENT: Conjunctivae normal. Oral mucosa moist. NECK: No jugular venous distention. No carotid bruit. No lymph node enlargement. CARDIOVASCULAR: S1 and S2, muffled. No S3, no S4. RESPIRATORY: Breath sounds diminished at the bases. Bilateral scattered rhonchi and crackles. ABDOMEN: Soft, status post surgery. No mass palpable. Legs: No swelling. Nervous system: Higher functions as mentioned. Moves all four limbs. No focal deficits. LYMPHATICS: No lymph nodes palpable in neck, axillae or groin. SKIN: No ulcer, rash, bleeding. LABS: WBC 6.1, hemoglobin is 10.8, sodium 136, glucose noted. ASSESSMENT: 1. Acute sigmoid perforation status post laparotomy as well as Maged's procedure still on NG tube. 2. Chronic obstructive pulmonary disease, acute exacerbation, with multifocal possible right middle lobe or lower lobe pneumonia versus atelectasis with possibly gram-negative present on admission. 3. Mild polycythemia possibly secondary to dehydration, present on admission. 4. Possible right diaphragmatic present on admission. 6. Increased d-dimer with no evidence of pulmonary embolism. 7. Increased random blood sugar with diabetes mellitus type 2. 8. Hypertension, essential. 9. History of leaky heart valve. 10. History of hiatal hernia. 11. History of degenerative joint disease. 12. History of mild hypocalcemia. 13. History of shingles. 14. History of back surgery. 15. History of degenerative joint disease. 16. History of cardiac catheterization. 17. History of anxiety. 18. FULL CODE. RECOMMENDATIONS AND DISCUSSION: In this 75-year-old woman who presented with multiple complex medical issues, we will monitor the patient closely. Continue the antibiotics. Continued the bronchodilators. Continue incentive spirometry, closely follow with surgery and pulmonology. Guarded prognosis because of multiple complex medical issues. Further recommendations to follow. MTDD
[2016-08-27] MEDS: HYDROmorphone 1 MG/ML 1 ML SYRINGE IVP PRN ×8 (00:34→23:38)
[2016-08-27 01:09] LABS: Glucose,Whole Blood 286 mg/dL (75-99)
[2016-08-27] MEDS: INSULIN LISPRO (humaLOG) 300 UNIT/3 ML VIAL SQ SCH ×3 (01:09→13:24)
[2016-08-27] MEDS: ABREVA TOPICAL SCH ×5 (01:14→22:51)
[2016-08-27] MEDS: PIPERACILLIN-TAZOBACTAM 3.375 GM in DEXTROSE/WATER 1 50ML.BAG IVPB SCH ×4 (01:15→23:07)
[2016-08-27 01:29] LABS: Anion Gap 5 mmol/L; Blood Urea Nitrogen 8 mg/dL (7-17); Calcium 7.8 mg/dL (8.4-10.2); Carbon Dioxide 27 mmol/L (22-30); Chloride 103 mmol/L (98-107); Glucose 312 mg/dL (74-99); Magnesium 1.7 mg/dL (1.6-2.3); Non-African American GFR(MDRD) >60 (>60 ml/min/1.73 sqM); Phosphorous 2.4 mg/dL (2.5-4.5); Potassium 3.9 mmol/L (3.5-5.1); Sodium 135 mmol/L (137-145)
[2016-08-27] MEDS ORDERED: Potassium Replacement Protocol 1 EACH MISC MISCELLANE PRN (01:39)
[2016-08-27] MEDS ORDERED: Magnesium Replacement Protocol 1 EACH MISC MISCELLANE PRN (01:39)
[2016-08-27] MEDS: 0.9% NACL WITH KCL 20 MEQ/L 1,000 ML IV SCH ×5 (01:54→17:41)
[2016-08-27] MEDS: MAGNESIUM SULFATE-D5W PMX 1 GM in DEXTROSE/WATER 1 100ML.BAG IVPB SCH ×2 (02:16→04:25)
[2016-08-27] MEDS: POTASSIUM CHLORIDE 10 MEQ, LIDOCAINE 2% INJ 10 MG in SODIUM CHLORIDE 0.9% 100 ML IV SCH ×2 (02:39→04:25)
[2016-08-27 05:27] LABS: Anion Gap 8 mmol/L; Blood Urea Nitrogen 8 mg/dL (7-17); Calcium 8.2 mg/dL (8.4-10.2); Carbon Dioxide 26 mmol/L (22-30); Chloride 105 mmol/L (98-107); Glucose 85 mg/dL (74-99); Non-African American GFR(MDRD) >60 (>60 ml/min/1.73 sqM); Phosphorous 2.5 mg/dL (2.5-4.5); Sodium 139 mmol/L (137-145)
[2016-08-27 05:29] LABS: Basophils % (A) 0 %; CH 29.3; CHCM 32.4; Eosinophils % (A) 1 %; HCT 34.1 % (34.0-46.0); HDW 2.98; HGB 10.8 gm/dL (11.4-16.0); Luc # (Auto) 0.11; Luc % (Auto) 2; Lymphocytes # (A) 0.7 k/uL (1.0-4.8); Lymphocytes % (A) 13 %; MCH 28.9 pg (25.0-35.0); MCHC 31.8 g/dL (31.0-37.0); MCV 90.8 fL (80.0-100.0); Mean Platelet Volume 7.6; Monocytes # (A) 0.5 k/uL (0-1.0); Monocytes % (A) 9 %; Neutrophils % (A) 75 %; RBC 3.75 m/uL (3.80-5.40); RDW 13.7 % (11.5-15.5); WBC 5.3 k/uL (3.8-10.6); WBC (Perox) 6.14
[2016-08-27 06:11] LABS: Glucose,Whole Blood 168 mg/dL (75-99)
[2016-08-27] MEDS: METOPROLOL TARTRATE 5 MG/5 ML VIAL IVP SCH ×4 (06:17→23:40)
[2016-08-27] MEDS: ACYCLOVIR SODIUM 500 MG in SODIUM CHLORIDE 0.9% 100 ML IVPB SCH ×3 (06:21→23:43)
[2016-08-27] MEDS: HALOPERIDOL LACTATE 5 MG/ML 1 ML VIAL IVP PRN ×2 (06:52→22:54)
[2016-08-27] MEDS: IPRATROPIUM-ALBUTEROL 3 ML NEB INHALATION SCH ×4 (07:40→21:07)
[2016-08-27] MEDS: FORMOTEROL FUMARATE 20 MCG/2 ML NEBU INHALATION SCH ×2 (07:40→21:07)
[2016-08-27] MEDS: BUDESONIDE 1 MG/2 ML NEBU INHALATION SCH ×2 (07:40→21:07)
--- NOTE | 2016-08-27 07:41 | XR ---
EXAMINATION TYPE: XR chest 1V portable DATE OF EXAM: 08/27/2016 6:56 AM COMPARISON: NONE HISTORY: Shortness of breath TECHNIQUE: Single frontal view of the chest is obtained. FINDINGS: PICC line stable. NG tube stable. Right-sided consolidation with elevated hemidiaphragm an d pleural effusion are stable. Left lung is unchanged in appearance with subsegmental basilar changes . Arthropathy of the shoulders. IMPRESSION: 1. Stable basilar consolidation and right pleural effusion.
--- NOTE | 2016-08-27 08:42 | P.PN ---
Subjective Principal diagnosis: Perforated diverticulitis, status post Maged's procedure The patient became confused and agitated last night after some Ativan. She was given Haldol and is still agitated this morning. NG tube had to be replaced twice last night. She is also noted to be tachypnic and tachycardic. Objective - Vital Signs Vital signs: Vital Signs Temp 98 F 08/26/16 15:00 Pulse 131 H 08/27/16 07:00 Resp 39 H 08/27/16 07:00 BP 146/57 08/27/16 06:00 Pulse Ox 95 08/27/16 04:00 Intake & Output 08/26/16 08/27/16 08/27/16 18:59 06:59 18:59 Intake Total 780 3500 Output Total 2600 2445 Balance -1820 1055 Weight 80.1 kg Intake: IV 125 0.9% NaCl with KCl 20 Meq 125 /l 1,000 ml @ 100 mls/hr IV .Q10H [facility] Rx#: [id number] Intake, IV Titration 455 3500 Amount 0.9% NaCl with KCl 20 Meq 125 2000 /l 1,000 ml @ 125 mls/hr IV .Q8H [facility] Rx#:[id number] Acyclovir Sodium 500 mg 100 In Sodium Chloride 0.9% 100 ml @ 100 mls/hr IVPB Q8H [facility] Rx#:[id number] Levofloxacin 750Mg-D5w 150 Pmx 750 mg In Dextrose/ Water 1 150ml.bag @ 100 mls/hr IVPB Q24H [facility] Rx#: [id number] Magnesium Sulfate-D5w Pmx 200 1 gm In Dextrose/Water 1 100ml.bag @ 100 mls/hr IVPB Q1H [facility] Rx#: [id number] Mvi, Adult No.4 with Vit 180 800 K 10 ml Trace (Conc-1Ml/ Dose) 1 ml In Amino Acid 5%-D25w+Lytes*E* 1,000 ml @ 30 mls/hr IV .Q24H [facility] Rx#:[id number] Piperacillin-Tazobactam 3 50 50 .375 gm In Dextrose/Water 1 50ml.bag @ 12.5 mls/hr IVPB Q8HR [facility] Rx#: [id number] Potassium Chloride 10 meq 200 Lidocaine 2% Inj 10 mg In Sodium Chloride 0.9% 100 ml @ 100 mls/hr IV Q1HR [facility] Rx#:[id number] Potassium Chloride 20 meq 100 In Water For Injection 1 100ml.bag @ 50 mls/hr IVPB ONCE ONE Rx#: [id number] Oral 200 Output: Gastric Drainage 500 550 Drainage 100 70 Right Lower Abdomen 50 30 Right Upper Abdomen 50 40 Urine 2000 1825 Other: Voiding Method Indwelling Catheter Indwelling Catheter # Voids 2 - Exam Anxious. Breathing much faster than she has during the previous days. - Constitutional General appearance: Present: no acute distress - Respiratory Respiratory: right: diminished, bilateral: CTA - Cardiovascular Rhythm: other (Tachycardic) - Gastrointestinal General gastrointestinal: Present: absent bowel sounds, soft, tenderness ( Incisional) Localized gastrointestinal: surgical scar: midline (Incision is intact without cellulitis. JPs are serosanguineous, ostomy appliance has no significant output ) - Labs CBC & Chem 7: 08/27/16 04:45 08/27/16 04:45 Labs: Abnormal Lab Results - Last 24 Hours (Table) 08/26/16 08/26/16 08/27/16 Range/Units 12:20 18:11 01:05 RBC (3.80-5.40) m/uL Hgb (11.4-16.0) gm/dL Lymphocytes # (1.0-4.8) k/uL Sodium 135 L (137-145) mmol/L Creatinine 0.50 L (0.52-1.04) mg/dL Glucose 312 H (74-99) mg/dL POC Glucose (mg/dL) 245 H 260 H (75-99) mg/dL Calcium 7.8 L (8.4-10.2) mg/dL Phosphorus 2.4 L (2.5-4.5) mg/dL 08/27/16 08/27/16 08/27/16 Range/Units 01:07 04:45 04:45 RBC 3.75 L (3.80-5.40) m/uL Hgb 10.8 L (11.4-16.0) gm/dL Lymphocytes # 0.7 L (1.0-4.8) k/uL Sodium (137-145) mmol/L Creatinine (0.52-1.04) mg/dL Glucose (74-99) mg/dL POC Glucose (mg/dL) 286 H (75-99) mg/dL Calcium 8.2 L (8.4-10.2) mg/dL Phosphorus (2.5-4.5) mg/dL 08/27/16 Range/Units 06:09 RBC (3.80-5.40) m/uL Hgb (11.4-16.0) gm/dL Lymphocytes # (1.0-4.8) k/uL Sodium (137-145) mmol/L Creatinine (0.52-1.04) mg/dL Glucose (74-99) mg/dL POC Glucose (mg/dL) 168 H (75-99) mg/dL Calcium (8.4-10.2) mg/dL Phosphorus (2.5-4.5) mg/dL Assessment and Plan (1) Diaphragmatic paralysis Status: Acute (2) Perforation of sigmoid colon due to diverticulitis Status: Acute Plan: With the confusion, tachypnea, and tachycardia I would keep her in the ICU at this point. Discuss the heart rate with cardiology. Continue incentive spirometry. She could have meds with the NG tube clamped but it's not ready to remove at this point. There was quite a bit of film and exudate on the small bowel which we'll give her a prolonged ileus.
--- NOTE | 2016-08-27 12:14 | P.PN ---
Subjective Principal diagnosis: Acute pneumoperitoneum secondary to perforated diverticulitis, right hemidiaphragm paralysis I was asked to evaluate this 75-year-old female patient for symptoms of pneumonia. Note that the patient was having some increased cough and congestion and dyspnea for the past 10 days. She was being treated by Keli Vargas NP, and initially she was given a course of amoxicillin followed by a Medrol Dosepak. Her symptoms remain unchanged and the patient was still having the same symptomatology and she was given Levaquin. During this time, the patient reported limited improvement if any and she also developed some herpetic lesions in her upper lips. No chills. No fever. No pleurisy. No chest pain. No trauma to the chest. No falls. No nausea. No vomiting. No diarrhea. No abdominal pain. No change in mental status. Ultimately the patient decided to come in to the hospital for further evaluation. The chest x-rays were done in the hospital showed significant elevation of the right hemidiaphragm which is a new findings compared to the previous chest x-rays. A CAT scan of the chest was also done and this is a CT angios done to rule out pulmonary embolism. The findings showed a patchy opacity within the medial right upper lobe of the lung with peribronchial thickening. However, the major abnormalities that was noted is in the right lower lobe where the right hemidiaphragm is felt to be quite elevated and that it probably some residual consolidation within the right lower lobe area. I do suspect an underlying diaphragmatic weakness/paralysis that has developed recently knowing that this abnormality was not present on previous x-rays that were done earlier on the same patient. For now, the patient has no other complaints. Her white cell count is at 10.4. She was started on IV Zosyn. She was started on bronchodilators. She was started on systemic steroids. She was started on Valtrex regarding her herpetic labial lesions. Pulmonate consultation was requested for further advice. Influenza A and B screen was negative. On 08/23/2016 the patient is being seen in follow-up. Note that on yesterday's evaluation of suspected a right hemidiaphragmatic paralysis and I sent this patient for a sniff test to confirm the findings. During her sniff test, the patient was found to have bilateral air under the diaphragms and this was consistent with pneumoperitoneum. Immediately the patient was evaluated and the patient seems to have developing increased abdominal pain and tenderness over the past 6-12 hours. Based on that, a stat consultation for surgery was placed and the patient was evaluated and seen by Dr. Siu and she'll be taken to the operating room. There is a suspicion that the patient has perforated day gastric ulcer or a perforated diverticulum. She will need an expiratory laparoscopy with possible open laparotomy. The findings of the x-ray were discussed with the patient length and she is aware of this. On 08/24/2016 the patient is being seen in follow-up. The patient is doing well. As mentioned earlier, the patient was taken to the operating room yesterday for pneumoperitoneum. She was found to have perforated diverticulitis. The surgery was done by Dr. Siu. The patient underwent diagnostic laparoscopy and following that she underwent sigmoid resection with Maloney's pouch and diverting colostomy for perforated diverticulitis. YUVAL drains were placed 2 and following that the patient was extubated and she was brought into the intensive care unit. Overnight the patient had some low urine output and she was given a bolus of 1 L of normal saline and currently she is on a maintenance of 1 25 mL an hour. She has a good urine output. No nausea. No vomiting. NG tube in place. The output from the NG tube is been around 500 mL since she arrived from the operating room. Colostomy site is viable and nonfunctional yet. No abdominal pain. No swelling lower extremities. No respiratory distress. Chest x-ray showing significant elevation of the right hemidiaphragm consistent with diaphragmatic paralysis. NG tube is in a good location. The patient remains on IV Zosyn. The white cell count is not elevated. Patient was reevaluated on 08/25/2016, seems to be doing very well, x-ray continues to show significant elevation of the right hemidiaphragm, patient tolerated surgery quite well, and she is scheduled to have a PICC line placement today. Patient will receive TPN, and I would likely keep her in the ICU today or possibly transfer later today to a regular medical floor. Remains on antibiotics for her abdominal sepsis. Presently she is in no form of respiratory distress. Patient was reevaluated today on 08/26/2016, continues to do well, were still waiting for a bed to be available on a regular medical floor to transfer the patient to a regular medical floor. No major issues overnight. Patient had a PICC line placed uneventfully. And TPN was started. Labs were reviewed, she has a relatively normal basic metabolic profile and normal CBC except for hemoglobin of 10.8. Patient was reevaluated today on 08/27/2016, continues to have nasogastric tube in place, no output from the colostomy at this point so far since surgery, patient is a bit tachycardic in spite of beta blockers given IV push by cardiology. Blood pressures seems to be stable. Patient has been intermittently anxious requiring sedation. No shortness of breath, no cough, no wheezing. Chest x-ray is showing definite improvement in her elevation of her right hemidiaphragm. And no evidence of infiltrates or edema. Objective - Vital Signs Vital signs: Vital Signs Temp 98 F 08/26/16 15:00 Pulse 131 H 08/27/16 07:00 Resp 39 H 08/27/16 07:00 BP 146/57 08/27/16 06:00 Pulse Ox 95 08/27/16 04:00 Intake & Output 08/26/16 08/27/16 08/27/16 18:59 06:59 18:59 Intake Total 780 3500 525 Output Total 2600 2445 500 Balance -1820 1055 25 Weight 80.1 kg Intake: IV 125 0.9% NaCl with KCl 20 Meq 125 /l 1,000 ml @ 100 mls/hr IV .Q10H [facility] Rx#: [id number] Intake, IV Titration 455 3500 525 Amount 0.9% NaCl with KCl 20 Meq 125 2000 375 /l 1,000 ml @ 125 mls/hr IV .Q8H [facility] Rx#:[id number] Acyclovir Sodium 500 mg 100 In Sodium Chloride 0.9% 100 ml @ 100 mls/hr IVPB Q8H [facility] Rx#:[id number] Levofloxacin 750Mg-D5w 150 Pmx 750 mg In Dextrose/ Water 1 150ml.bag @ 100 mls/hr IVPB Q24H [facility] Rx#: [id number] Magnesium Sulfate-D5w Pmx 200 1 gm In Dextrose/Water 1 100ml.bag @ 100 mls/hr IVPB Q1H [facility] Rx#: [id number] Mvi, Adult No.4 with Vit 180 800 K 10 ml Trace (Conc-1Ml/ Dose) 1 ml In Amino Acid 5%-D25w+Lytes*E* 1,000 ml @ 30 mls/hr IV .Q24H [facility] Rx#:[id number] Mvi, Adult No.4 with Vit 150 K 10 ml Trace (Conc-1Ml/ Dose) 1 ml In Amino Acid 5%-D25w+Lytes*E* 1,000 ml @ 50 mls/hr IV .[id number] [facility] Rx#:[id number] Piperacillin-Tazobactam 3 50 50 .375 gm In Dextrose/Water 1 50ml.bag @ 12.5 mls/hr IVPB Q8HR [facility] Rx#: [id number] Potassium Chloride 10 meq 200 Lidocaine 2% Inj 10 mg In Sodium Chloride 0.9% 100 ml @ 100 mls/hr IV Q1HR [facility] Rx#:[id number] Potassium Chloride 20 meq 100 In Water For Injection 1 100ml.bag @ 50 mls/hr IVPB ONCE ONE Rx#: [id number] Oral 200 Output: Gastric Drainage 500 550 150 Drainage 100 70 Right Lower Abdomen 50 30 Right Upper Abdomen 50 40 Urine 2000 1825 350 Other: Voiding Method Indwelling Catheter Indwelling Catheter # Voids 2 - Exam Physical Exam: Revealed a 75-year-old female in no distress HEENT:[Neck is supple.] [No neck masses.] [No thyromegaly.] [No JVD.] Healing viral lesions noted on the lips Chest: [Clear throughout, no crackles, no rhonchi, no wheezes.] Cardiac Exam: [Normal S1 and S2, no S3 gallop, no murmur.] Abdomen: [Colostomy seems to be intact, and abdomen findings are benign Extremities: [No clubbing, no edema, no cyanosis.] Neurological Exam: [No focal neurologic deficit.] - Labs CBC & Chem 7: 08/27/16 04:45 08/27/16 04:45 Labs: Abnormal Lab Results - Last 24 Hours (Table) 08/26/16 08/26/16 08/27/16 Range/Units 12:20 18:11 01:05 RBC (3.80-5.40) m/uL Hgb (11.4-16.0) gm/dL Lymphocytes # (1.0-4.8) k/uL Sodium 135 L (137-145) mmol/L Creatinine 0.50 L (0.52-1.04) mg/dL Glucose 312 H (74-99) mg/dL POC Glucose (mg/dL) 245 H 260 H (75-99) mg/dL Calcium 7.8 L (8.4-10.2) mg/dL Phosphorus 2.4 L (2.5-4.5) mg/dL 08/27/16 08/27/16 08/27/16 Range/Units 01:07 04:45 04:45 RBC 3.75 L (3.80-5.40) m/uL Hgb 10.8 L (11.4-16.0) gm/dL Lymphocytes # 0.7 L (1.0-4.8) k/uL Sodium (137-145) mmol/L Creatinine (0.52-1.04) mg/dL Glucose (74-99) mg/dL POC Glucose (mg/dL) 286 H (75-99) mg/dL Calcium 8.2 L (8.4-10.2) mg/dL Phosphorus (2.5-4.5) mg/dL 08/27/16 Range/Units 06:09 RBC (3.80-5.40) m/uL Hgb (11.4-16.0) gm/dL Lymphocytes # (1.0-4.8) k/uL Sodium (137-145) mmol/L Creatinine (0.52-1.04) mg/dL Glucose (74-99) mg/dL POC Glucose (mg/dL) 168 H (75-99) mg/dL Calcium (8.4-10.2) mg/dL Phosphorus (2.5-4.5) mg/dL Assessment and Plan Plan: 1 acute pneumoperitoneum attributed to a perforated diverticulitis. The patient had a sigmoid resection with Maloney's pouch and diverting colostomy and the patient is postop day # 4 She remains on IV Zosyn. She is hemodynamically stable. She was weaned off the mechanical ventilator and extubated without any major difficulties. 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 Less likely is the possibility of a pneumonia. Chest x-ray seems to be improving today and that is better aeration of the right lung. 3 shortness of breath secondary to above 4 preserved LV function with moderate degree of concentric left Hypertrophy/ hypertensive heart disease based on echocardiogram 5 diabetes mellitus 6 obesity 7 osteoarthritis Recommendation: Continue present course of treatment including antibiotics, she is on Zosyn, keep in the ICU today because of her tachycardia and IV beta blockers given intermittently. Continue IV fluid the same, continue TPN. Time with Patient: Less than 30
[2016-08-27] MEDS: ENOXAPARIN 40 MG/0.4 ML SYRINGE SQ SCH (13:03)
[2016-08-27] MEDS: PANTOPRAZOLE 40 MG/10 ML VIAL IV SCH (13:03)
[2016-08-27 13:13] LABS: Glucose,Whole Blood 314 mg/dL (75-99)
[2016-08-27 13:13] LABS: Glucose,Whole Blood 301 mg/dL (75-99)
[2016-08-27] MEDS: FAT EMULSION 20% 250 ML in EMPTY BAG 1 BAG IV SCH (17:08)
[2016-08-27] MEDS: [UNRECOGNIZED DRUG - REMARK] IV SCH ×4 (17:08)
[2016-08-27 18:44] LABS: Glucose,Whole Blood 285 mg/dL (75-99)
[2016-08-27] MEDS ORDERED: INSULIN REGULAR BOLUS (FROM DRIP BAG) IV PRN (19:20)
[2016-08-27] MEDS ORDERED: INSULIN REGULAR 100 UNIT in SODIUM CHLORIDE 0.9% 100 ML IV SCH (19:30)
[2016-08-27 21:10] LABS: Glucose,Whole Blood 293 mg/dL (75-99)
[2016-08-27] MEDS: LEVOFLOXACIN 750MG-D5W PMX 750 MG in DEXTROSE/WATER 1 150ML.BAG IVPB SCH (21:39)
[2016-08-27 22:28] LABS: Glucose,Whole Blood 234 mg/dL (75-99)
--- NOTE | 2016-08-27 22:31 | PN ---
DATE OF SERVICE: 08/27/2016 This 75-year-old woman who was admitted after acute sigmoid perforation had laparotomy as well as Maged's procedure. The patient also had polycythemia. The patient also had possibly right diaphragmatic paralysis, present on admission. The patient is being closely monitored. She has an NG tube in situ. The patient is also tachycardic. Surgery wanted the patient strict n.p.o. at this time. Otherwise, beta blockers are being planned by Cardiology. The patient is on broad-spectrum IV antibiotics at this time. The patient is being closely monitored. As far as the labs are concerned, WBC is 5.3, hemoglobin is 10.8. Sugars are still elevated. Sodium is 135. Past medical history reviewed. REVIEW OF SYSTEMS: CARDIOVASCULAR SYSTEM: As mentioned earlier. RESPIRATORY SYSTEM: No cough, hemoptysis. GI: As mentioned earlier. : No dysuria, retention. NERVOUS SYSTEM: As mentioned earlier. Current medications are reviewed and include: 1. Acyclovir 500 q.8. 2. Albuterol Atrovent q.i.d. and p.r.n. 3. Pulmicort b.i.d. 4. Lovenox 40 mg subcutaneously daily. 5. TPN. 6. Perforomist 20 mg b.i.d. 7. Haldol 2 mg q.6 p.r.n. 8. Humalog. 9. Levaquin. 10. Lopressor. 11. Replacement protocols. 12. Zosyn 3.375 IV q.6. PHYSICAL EXAMINATION: Patient is alert and oriented x3. Pulse 116. Blood pressure is 115/69. Respiration 33. Pulse ox 97% on 2 L. HEENT: Conjunctivae normal. Oral mucosa moist. NECK: No jugular venous distention. No carotid bruit. No lymph node enlargement. CARDIOVASCULAR SYSTEM: S1, S2 muffled. No S3. No S4. RESPIRATORY SYSTEM: Breath sounds diminished at the bases. Scattered rhonchi and crackles. Expiratory wheezing also present. ABDOMEN: Soft, non-tender. No mass palpable. LEGS: No edema. No swelling. NERVOUS SYSTEM: Higher functions as mentioned earlier. Moves all 4 limbs. No focal motor or sensory deficit. LYMPHATICS: No lymph node palpable in neck, axillae or groin. SKIN: No ulcer, rash, bleeding. LABS: WBC 5.3, hemoglobin 10.8. Sodium 135. Glucose 286. ASSESSMENT: 1. Acute sigmoid perforation, status post laparotomy as well as Maged's procedure, still on NG tube. 2. Chronic obstructive pulmonary disease, acute exacerbation, multifactorial, with possible right lower lobe pneumonia versus atelectasis with possible Gram-negative, present on admission. 3. Mild polycythemia, possibly secondary to dehydration, present on admission. 4. Change in mental status, metabolic encephalopathy, acute, multifactorial. 5. Possible right diaphragmatic paralysis, present on admission. 6. Increased D-dimer with no evidence of pulmonary embolism. 7. Increased random blood sugar and diabetes mellitus, type 2. 8. Hypertension, essential. 9. History of leaky heart valves. 10. History of hiatal hernia. 11. History of degenerative joint disease. 12. History of mild hypocalcemia. 13. History of shingles. 14. History back surgery, degenerative joint disease. 15. History of cardiac catheterization. 16. History of anxiety. 17. FULL CODE. RECOMMENDATIONS AND DISCUSSION: I recommend to continue with the current medications, continue with the monitoring, symptomatic treatment. Otherwise, at this time I would recommend continuing with beta blockers. Continue the rest of the medications. Empiric antibiotics. Proton pump inhibitors. Closely follow with Surgery. Guarded prognosis because of multiple complex medical issues. Further recommendations to follow.
[2016-08-27 23:05] LABS: Glucose,Whole Blood 206 mg/dL (75-99)
[2016-08-28] MEDS: ABREVA TOPICAL SCH ×5 (00:16→20:39)
[2016-08-28 00:17] LABS: Glucose,Whole Blood 195 mg/dL (75-99)
[2016-08-28 01:10] LABS: Glucose,Whole Blood 145 mg/dL (75-99)
[2016-08-28 02:17] LABS: Glucose,Whole Blood 167 mg/dL (75-99)
[2016-08-28 02:55] LABS: Glucose,Whole Blood 185 mg/dL (75-99)
[2016-08-28] MEDS: HYDROmorphone 1 MG/ML 1 ML SYRINGE IVP PRN ×6 (03:02→23:16)
[2016-08-28 04:45] LABS: Glucose,Whole Blood 221 mg/dL (75-99)
[2016-08-28] MEDS: 0.9% NACL WITH KCL 20 MEQ/L 1,000 ML IV SCH ×2 (04:45→11:58)
[2016-08-28 05:17] LABS: Anion Gap 8 mmol/L; Blood Urea Nitrogen 11 mg/dL (7-17); Calcium 7.5 mg/dL (8.4-10.2); Carbon Dioxide 23 mmol/L (22-30); Chloride 104 mmol/L (98-107); Glucose 234 mg/dL (74-99); Magnesium 1.8 mg/dL (1.6-2.3); Non-African American GFR(MDRD) >60 (>60 ml/min/1.73 sqM); Phosphorous 3.7 mg/dL (2.5-4.5); Potassium 4.3 mmol/L (3.5-5.1); Sodium 135 mmol/L (137-145)
[2016-08-28] MEDS: METOPROLOL TARTRATE 5 MG/5 ML VIAL IVP SCH ×3 (06:27→19:30)
[2016-08-28 07:30] LABS: Glucose,Whole Blood 194 mg/dL (75-99)
[2016-08-28] MEDS: IPRATROPIUM-ALBUTEROL 3 ML NEB INHALATION SCH ×4 (07:44→20:14)
[2016-08-28] MEDS: BUDESONIDE 1 MG/2 ML NEBU INHALATION SCH ×2 (07:44→20:13)
[2016-08-28] MEDS: FORMOTEROL FUMARATE 20 MCG/2 ML NEBU INHALATION SCH ×2 (07:44→20:14)
[2016-08-28] MEDS: ACYCLOVIR SODIUM 500 MG in SODIUM CHLORIDE 0.9% 100 ML IVPB SCH ×2 (07:44→15:16)
[2016-08-28] MEDS: PIPERACILLIN-TAZOBACTAM 3.375 GM in DEXTROSE/WATER 1 50ML.BAG IVPB SCH ×2 (08:00→19:39)
[2016-08-28] MEDS: ENOXAPARIN 40 MG/0.4 ML SYRINGE SQ SCH (08:28)
[2016-08-28] MEDS: PANTOPRAZOLE 40 MG/10 ML VIAL IV SCH (08:28)
[2016-08-28 08:29] LABS: Glucose,Whole Blood 202 mg/dL (75-99)
[2016-08-28] MEDS ORDERED: MVI, ADULT NO.4 WITH VIT K 10 ML, TRACE (CONC-1ML/DOSE) 1 ML in AMINO ACID 5%-D25W+LYTE... IV SCH ×3 (08:45)
[2016-08-28 10:00] LABS: Glucose,Whole Blood 177 mg/dL (75-99)
[2016-08-28] MEDS ORDERED: ALPRAZolam 0.5 MG TAB PO PRN (10:29)
[2016-08-28 11:09] LABS: Glucose,Whole Blood 207 mg/dL (75-99)
--- NOTE | 2016-08-28 11:16 | PN ---
DATE OF SERVICE: 08/28/2016 Nisha is seen on rounds. She continues to be confused. She is not sure why she is still in the hospital. She wants to go home. PHYSICAL EXAM: Her pulse rate has been in the 100s to 110s. She has been afebrile, respirations are 20, blood pressure is 103/66. Heart is a little tachycardic, otherwise regular rhythm. Lungs are fairly clear, diminished at the right base, but that does sound improved. Abdomen is soft. No real bowel sounds at this point. No significant ostomy output. The ostomy is pink and viable. The incision is intact; two of the nessa are removed. The lower wick has a little yellowish mucoid appearance to it. LAB: Her sodium is 135, potassium is okay at 4.3. ASSESSMENT: 1. Status post Maloney procedure for perforated diverticulitis. 2. Postoperative ileus, which is expected, based on the amount of contamination on her abdomen. 3. Confusion, likely multifactorial. 4. Right hemidiaphragm paralysis. PLAN: Continue TPN. Continue NG tube although meds could be placed in the tube and it could be clamped transiently. I think she could go to the floor if she had a sitter available at night time, as she pulled out her NG tube a couple of times the previous night and start some Aquasol AG rope into the lower part of the incision.
[2016-08-28] MEDS: [UNRECOGNIZED DRUG - REMARK] IV SCH ×4 (12:01)
[2016-08-28] MEDS: INSULIN REGULAR 100 UNIT in SODIUM CHLORIDE 0.9% 100 ML IV SCH ×2 (12:03→19:52)
--- NOTE | 2016-08-28 12:26 | P.PN ---
Subjective Principal diagnosis: Acute pneumoperitoneum secondary to perforated diverticulitis, right hemidiaphragm paralysis I was asked to evaluate this 75-year-old female patient for symptoms of pneumonia. Note that the patient was having some increased cough and congestion and dyspnea for the past 10 days. She was being treated by Keli Vargas NP, and initially she was given a course of amoxicillin followed by a Medrol Dosepak. Her symptoms remain unchanged and the patient was still having the same symptomatology and she was given Levaquin. During this time, the patient reported limited improvement if any and she also developed some herpetic lesions in her upper lips. No chills. No fever. No pleurisy. No chest pain. No trauma to the chest. No falls. No nausea. No vomiting. No diarrhea. No abdominal pain. No change in mental status. Ultimately the patient decided to come in to the hospital for further evaluation. The chest x-rays were done in the hospital showed significant elevation of the right hemidiaphragm which is a new findings compared to the previous chest x-rays. A CAT scan of the chest was also done and this is a CT angios done to rule out pulmonary embolism. The findings showed a patchy opacity within the medial right upper lobe of the lung with peribronchial thickening. However, the major abnormalities that was noted is in the right lower lobe where the right hemidiaphragm is felt to be quite elevated and that it probably some residual consolidation within the right lower lobe area. I do suspect an underlying diaphragmatic weakness/paralysis that has developed recently knowing that this abnormality was not present on previous x-rays that were done earlier on the same patient. For now, the patient has no other complaints. Her white cell count is at 10.4. She was started on IV Zosyn. She was started on bronchodilators. She was started on systemic steroids. She was started on Valtrex regarding her herpetic labial lesions. Pulmonate consultation was requested for further advice. Influenza A and B screen was negative. On 08/23/2016 the patient is being seen in follow-up. Note that on yesterday's evaluation of suspected a right hemidiaphragmatic paralysis and I sent this patient for a sniff test to confirm the findings. During her sniff test, the patient was found to have bilateral air under the diaphragms and this was consistent with pneumoperitoneum. Immediately the patient was evaluated and the patient seems to have developing increased abdominal pain and tenderness over the past 6-12 hours. Based on that, a stat consultation for surgery was placed and the patient was evaluated and seen by Dr. Siu and she'll be taken to the operating room. There is a suspicion that the patient has perforated day gastric ulcer or a perforated diverticulum. She will need an expiratory laparoscopy with possible open laparotomy. The findings of the x-ray were discussed with the patient length and she is aware of this. On 08/24/2016 the patient is being seen in follow-up. The patient is doing well. As mentioned earlier, the patient was taken to the operating room yesterday for pneumoperitoneum. She was found to have perforated diverticulitis. The surgery was done by Dr. Siu. The patient underwent diagnostic laparoscopy and following that she underwent sigmoid resection with Maloney's pouch and diverting colostomy for perforated diverticulitis. YUVAL drains were placed 2 and following that the patient was extubated and she was brought into the intensive care unit. Overnight the patient had some low urine output and she was given a bolus of 1 L of normal saline and currently she is on a maintenance of 1 25 mL an hour. She has a good urine output. No nausea. No vomiting. NG tube in place. The output from the NG tube is been around 500 mL since she arrived from the operating room. Colostomy site is viable and nonfunctional yet. No abdominal pain. No swelling lower extremities. No respiratory distress. Chest x-ray showing significant elevation of the right hemidiaphragm consistent with diaphragmatic paralysis. NG tube is in a good location. The patient remains on IV Zosyn. The white cell count is not elevated. Patient was reevaluated on 08/25/2016, seems to be doing very well, x-ray continues to show significant elevation of the right hemidiaphragm, patient tolerated surgery quite well, and she is scheduled to have a PICC line placement today. Patient will receive TPN, and I would likely keep her in the ICU today or possibly transfer later today to a regular medical floor. Remains on antibiotics for her abdominal sepsis. Presently she is in no form of respiratory distress. Patient was reevaluated today on 08/26/2016, continues to do well, were still waiting for a bed to be available on a regular medical floor to transfer the patient to a regular medical floor. No major issues overnight. Patient had a PICC line placed uneventfully. And TPN was started. Labs were reviewed, she has a relatively normal basic metabolic profile and normal CBC except for hemoglobin of 10.8. Patient was reevaluated today on 08/27/2016, continues to have nasogastric tube in place, no output from the colostomy at this point so far since surgery, patient is a bit tachycardic in spite of beta blockers given IV push by cardiology. Blood pressures seems to be stable. Patient has been intermittently anxious requiring sedation. No shortness of breath, no cough, no wheezing. Chest x-ray is showing definite improvement in her elevation of her right hemidiaphragm. And no evidence of infiltrates or edema. Patient was reevaluated today on 08/28/2016, doing relatively well overall, hemodynamically stable, continues to have a nasogastric tube in place, continues to have no output in the colostomy bag, heart rate seems to be better controlled, blood pressure remains stable,labs were reviewed the seem to be unremarkable including a basic metabolic profile and CBC. Hence I plan to transfer the patient out of the ICU to a medical surgical floor. Objective - Vital Signs Vital signs: Vital Signs Temp 98.9 F 08/28/16 08:00 Pulse 118 H 08/28/16 11:33 Resp 16 08/28/16 10:00 BP 103/62 08/28/16 10:00 Pulse Ox 96 08/28/16 10:00 Intake & Output 08/27/16 08/28/16 08/28/16 18:59 06:59 18:59 Intake Total 2167 2465.735 1579.200 Output Total 700 750 310 Balance 1467 5157.258 1796.200 Weight 79 kg 79 kg Intake: IV 1225 150 0.9% NaCl with KCl 20 Meq 1225 150 /l 1,000 ml @ 100 mls/hr IV .Q10H [facility] Rx#: [id number] Intake, IV Titration 2167 3788.924 8001.200 Amount 0.9% NaCl with KCl 20 Meq 1375 125 125 /l 1,000 ml @ 125 mls/hr IV .Q8H [facility] Rx#:[id number] Acyclovir Sodium 500 mg 100 100 100 In Sodium Chloride 0.9% 100 ml @ 100 mls/hr IVPB Q8H [facility] Rx#:[id number] Fat Emulsion 20% 250 ml 42 231 In Empty Bag 1 bag @ 21 mls/hr IV [id number] [facility] Rx#:[id number] Insulin Regular 100 unit 34.735 10.033 In Sodium Chloride 0.9% 100 ml @ Per Protocol IV .Q0M [facility] Rx#:[id number] Levofloxacin 750Mg-D5w 150 Pmx 750 mg In Dextrose/ Water 1 150ml.bag @ 100 mls/hr IVPB Q24H [facility] Rx#: [id number] Mvi, Adult No.4 with Vit 550 550 50 K 10 ml Trace (Conc-1Ml/ Dose) 1 ml In Amino Acid 5%-D25w+Lytes*E* 1,000 ml @ 50 mls/hr IV .[id number] [facility] Rx#:[id number] Mvi, Adult No.4 with Vit 150 K 10 ml Trace (Conc-1Ml/ Dose) 1 ml In Amino Acid 5%-D25w+Lytes*E* 1,000 ml @ 50 mls/hr IV .[id number] [facility] Rx#:[id number] Mvi, Adult No.4 with Vit 944.167 K 10 ml Trace (Conc-1Ml/ Dose) 1 ml Sodium Phosphate 10 mmol In Amino Acid 5%-D25w+Lytes* E* 1,000 ml @ 50 mls/hr IV .[id number] [facility] Rx#: [id number] Piperacillin-Tazobactam 3 100 50 50 .375 gm In Dextrose/Water 1 50ml.bag @ 12.5 mls/hr IVPB Q8HR [facility] Rx#: [id number] Output: Gastric Drainage 150 Drainage 150 160 Right Lower Abdomen 80 100 Right Upper Abdomen 70 60 Urine 550 600 150 Other: Voiding Method Indwelling Catheter Bedside Commode Bedpan # Voids 1 - Exam Physical Exam: Revealed a 75-year-old female in no distress HEENT:[Neck is supple.] [No neck masses.] [No thyromegaly.] [No JVD.] Healing viral lesions noted on the lips Chest: [Clear throughout, no crackles, no rhonchi, no wheezes.] Cardiac Exam: [Normal S1 and S2, no S3 gallop, no murmur.] Abdomen: [Colostomy seems to be intact, and abdomen findings are benign Extremities: [No clubbing, no edema, no cyanosis.] Neurological Exam: [No focal neurologic deficit.] - Labs CBC & Chem 7: 08/27/16 04:45 08/28/16 04:30 Labs: Abnormal Lab Results - Last 24 Hours (Table) 08/27/16 08/27/16 08/27/16 Range/Units 13:10 13:11 18:42 Sodium (137-145) mmol/L Glucose (74-99) mg/dL POC Glucose (mg/dL) 301 H 314 H 285 H (75-99) mg/dL Calcium (8.4-10.2) mg/dL 08/27/16 08/27/16 08/27/16 Range/Units 21:08 22:27 23:04 Sodium (137-145) mmol/L Glucose (74-99) mg/dL POC Glucose (mg/dL) 293 H 234 H 206 H (75-99) mg/dL Calcium (8.4-10.2) mg/dL 08/28/16 08/28/16 08/28/16 Range/Units 00:15 01:06 02:15 Sodium (137-145) mmol/L Glucose (74-99) mg/dL POC Glucose (mg/dL) 195 H 145 H 167 H (75-99) mg/dL Calcium (8.4-10.2) mg/dL 08/28/16 08/28/16 08/28/16 Range/Units 02:54 04:30 04:44 Sodium 135 L (137-145) mmol/L Glucose 234 H (74-99) mg/dL POC Glucose (mg/dL) 185 H 221 H (75-99) mg/dL Calcium 7.5 L (8.4-10.2) mg/dL 08/28/16 08/28/16 08/28/16 Range/Units 07:28 08:27 09:58 Sodium (137-145) mmol/L Glucose (74-99) mg/dL POC Glucose (mg/dL) 194 H 202 H 177 H (75-99) mg/dL Calcium (8.4-10.2) mg/dL 08/28/16 Range/Units 11:07 Sodium (137-145) mmol/L Glucose (74-99) mg/dL POC Glucose (mg/dL) 207 H (75-99) mg/dL Calcium (8.4-10.2) mg/dL Assessment and Plan Plan: 1 acute pneumoperitoneum attributed to a perforated diverticulitis. The patient had a sigmoid resection with Maloney's pouch and diverting colostomy and the patient is postop day # 5 She remains on IV Zosyn. She is hemodynamically stable. 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 Less likely is the possibility of a pneumonia. Chest x-ray seems to be improving today and that is better aeration of the right lung. 3 shortness of breath secondary to above 4 preserved LV function with moderate degree of concentric left Hypertrophy/ hypertensive heart disease based on echocardiogram 5 diabetes mellitus 6 obesity 7 osteoarthritis Recommendation: continue present treatment plan, transfer patient to a medical surgical floor, no need at present for continued stay in the ICU. Time with Patient: Less than 30
[2016-08-28] MEDS: INSULIN LISPRO (humaLOG) 300 UNIT/3 ML VIAL SQ SCH ×2 (13:03→18:04)
[2016-08-28 13:13] LABS: Glucose,Whole Blood 270 mg/dL (75-99)
[2016-08-28 15:20] LABS: Glucose,Whole Blood 232 mg/dL (75-99)
[2016-08-28 17:06] LABS: Glucose,Whole Blood 164 mg/dL (75-99)
[2016-08-28 19:25] LABS: Glucose,Whole Blood 148 mg/dL (75-99)
--- NOTE | 2016-08-28 20:40 | PN ---
This 75-year-old woman who was admitted with occasional perforation also had chronic obstructive pulmonary disease and multiple other medical problems. The patient also has polycythemia. The patient also has change in mental status and acute metabolic encephalopathy, which is multifactorial. The patient is being closely monitored at this time. The patient is on TPN, NG tube surgery and multiple consultants are following the patient closely. Past medical history reviewed. Review of systems could not be taken, the patient is slightly confused. Current medications are reviewed and include: 1. Acyclovir 500 mg q.8. 2. Albuterol. 3. DuoNeb q.i.d. and p.r.n. 4. Pulmicort 1 mg b.i.d. 5. Lovenox 40 mg subcu daily. 6. TPN . 7. Perforomist 20 mg b.i.d. 8. Haldol 2 mg IV q.6h p.r.n. 9. Levaquin 750 q.24 hours. 10. Insulin drip. 11. Ativan. 12. Lopressor. 13.protocol. 14. Zofran. 15. Protonix. 16. P.r.n. medication. PHYSICAL EXAMINATION: The patient is alert and oriented times one. Pulse is 116, blood pressure 130/52, respirations 21. Temperature 97.7. Pulse ox 97% on 2 L. HEENT: Conjunctivae normal. NECK: No jugular venous distention. CARDIOVASCULAR: S1, S2 muffled. RESPIRATORY: Breath sounds diminished at the bases. Bilateral scattered rhonchi and crackles. ABDOMEN: Soft status post surgery. Legs: No edema. No swelling. CENTRAL NERVOUS SYSTEM: No focal deficits. LABS: Hemoglobin is 10.8. Sodium is 135. ASSESSMENT: 1. Acute sigmoid perforation status post laparotomy as well as Maged's procedure still on NG tube. 2. Chronic obstructive pulmonary disease, acute exacerbation, multifactorial with possible right lower lobe pneumonia versus atelectasis, possibly gram-negative present on admission. 3. Mild polycythemia, possibly secondary to dehydration, present on admission. 4. Change in mental status, metabolic encephalopathy, acute, multifactorial. 5. Possible right diaphragmatic paralysis, present on admission. 6. Increased d-dimer with no evidence of pulmonary embolism. 7. Increased random blood sugar, diabetes mellitus type 2. 8. Hypertension. Essential. 9. History of leaky heart valve. 10. History of hiatal hernia. 11. History of degenerative joint disease. 12. History of mild hypocalcemia. 13. History of shingles. 14. History of back surgery and degenerative joint disease. 15. History of cardiac catheterization. 16. History of anxiety. 17. FULL CODE. RECOMMENDATIONS AND DISCUSSION: In this 74-year-old woman who presented with multiple complex medical issues, we will monitor the patient closely. Continue the current medications. Continue symptomatic treatment. Otherwise, at this time, I recommend to continue with bronchodilators. Repeat labs. TPN. Monitor lytes closely. Closely follow with surgery. Further recommendations to follow. See orders for further details. Discussed with the patient. LES
[2016-08-28 21:11] LABS: Glucose,Whole Blood 183 mg/dL (75-99)
[2016-08-28] MEDS: LORazepam 2 MG/ML SYRINGE IV PRN (22:48)
[2016-08-28 23:03] LABS: Glucose,Whole Blood 204 mg/dL (75-99)
[2016-08-29 01:08] LABS: Glucose,Whole Blood 132 mg/dL (75-99)
[2016-08-29] MEDS: LEVOFLOXACIN 750MG-D5W PMX 750 MG in DEXTROSE/WATER 1 150ML.BAG IVPB SCH ×2 (01:41→20:27)
[2016-08-29] MEDS: ABREVA TOPICAL SCH ×5 (01:43→20:32)
[2016-08-29] MEDS: ACYCLOVIR SODIUM 500 MG in SODIUM CHLORIDE 0.9% 100 ML IVPB SCH ×5 (01:43→22:45)
[2016-08-29] MEDS: METOPROLOL TARTRATE 5 MG/5 ML VIAL IVP SCH ×4 (01:44→18:03)
[2016-08-29 03:01] LABS: Glucose,Whole Blood 197 mg/dL (75-99)
[2016-08-29 05:04] LABS: Glucose,Whole Blood 263 mg/dL (75-99)
[2016-08-29] MEDS: HYDROmorphone 1 MG/ML 1 ML SYRINGE IVP PRN ×5 (05:51→22:45)
[2016-08-29] MEDS: PIPERACILLIN-TAZOBACTAM 3.375 GM in DEXTROSE/WATER 1 50ML.BAG IVPB SCH ×3 (05:53→17:40)
[2016-08-29] MEDS: LORazepam 2 MG/ML SYRINGE IV PRN ×3 (05:58→22:45)
[2016-08-29 06:39] LABS: Anion Gap 9 mmol/L; Blood Urea Nitrogen 13 mg/dL (7-17); Calcium 7.9 mg/dL (8.4-10.2); Carbon Dioxide 21 mmol/L (22-30); Chloride 104 mmol/L (98-107); Glucose 214 mg/dL (74-99); Magnesium 1.8 mg/dL (1.6-2.3); Non-African American GFR(MDRD) >60 (>60 ml/min/1.73 sqM); Phosphorous 2.6 mg/dL (2.5-4.5); Potassium 3.7 mmol/L (3.5-5.1); Sodium 134 mmol/L (137-145)
[2016-08-29 07:01] LABS: Basophils % (A) 0 %; CH 29.4; CHCM 32.2; Eosinophils # (A) 0.1 k/uL (0-0.7); Eosinophils % (A) 1 %; HCT 33.3 % (34.0-46.0); HDW 3.02; HGB 11.1 gm/dL (11.4-16.0); Hypochromasia Slight; Luc # (Auto) 0.15; Luc % (Auto) 2; Lymphocytes # (A) 0.6 k/uL (1.0-4.8); Lymphocytes % (A) 9 %; MCH 30.4 pg (25.0-35.0); MCHC 33.2 g/dL (31.0-37.0); MCV 91.6 fL (80.0-100.0); Mean Platelet Volume 7.6; Monocytes # (A) 0.3 k/uL (0-1.0); Monocytes % (A) 5 %; Neutrophils # (A) 5.4 k/uL (1.3-7.7); Neutrophils % (A) 82 %; RBC 3.64 m/uL (3.80-5.40); WBC 6.6 k/uL (3.8-10.6); WBC (Perox) 6.84
[2016-08-29 07:43] LABS: Glucose,Whole Blood 154 mg/dL (75-99)
[2016-08-29] MEDS: IPRATROPIUM-ALBUTEROL 3 ML NEB INHALATION SCH ×4 (08:11→19:36)
[2016-08-29] MEDS: FORMOTEROL FUMARATE 20 MCG/2 ML NEBU INHALATION SCH ×2 (08:12→19:36)
[2016-08-29] MEDS: BUDESONIDE 1 MG/2 ML NEBU INHALATION SCH ×2 (08:12→19:36)
[2016-08-29] MEDS: PANTOPRAZOLE 40 MG/10 ML VIAL IV SCH (08:57)
[2016-08-29] MEDS: ENOXAPARIN 40 MG/0.4 ML SYRINGE SQ SCH (08:57)
[2016-08-29] MEDS: INSULIN LISPRO (humaLOG) 300 UNIT/3 ML VIAL SQ SCH ×4 (09:09→20:36)
[2016-08-29 09:44] LABS: Glucose,Whole Blood 112 mg/dL (75-99)
[2016-08-29] MEDS: MVI, ADULT NO.4 WITH VIT K 10 ML, TRACE (CONC-1ML/DOSE) 1 ML in AMINO ACID 5%-D25W+LYTE... IV SCH ×3 (09:45)
[2016-08-29 10:53] LABS: Glucose,Whole Blood 91 mg/dL (75-99)
[2016-08-29] MEDS: MAGNESIUM SULFATE-D5W PMX 1 GM in DEXTROSE/WATER 1 100ML.BAG IVPB SCH ×2 (10:59→13:20)
[2016-08-29 12:03] LABS: Glucose,Whole Blood 163 mg/dL (75-99)
--- NOTE | 2016-08-29 12:28 | P.PN ---
Subjective Principal diagnosis: Acute pneumoperitoneum secondary to perforated diverticulitis, right hemidiaphragm paralysis We were asked to evaluate this 75-year-old female patient for symptoms of pneumonia. Note that the patient was having some increased cough and congestion and dyspnea for the past 10 days. She was being treated by Keli Vargas NP, and initially she was given a course of amoxicillin followed by a Medrol Dosepak. Her symptoms remain unchanged and the patient was still having the same symptomatology and she was given Levaquin. During this time, the patient reported limited improvement if any and she also developed some herpetic lesions in her upper lips. No chills. No fever. No pleurisy. No chest pain. No trauma to the chest. No falls. No nausea. No vomiting. No diarrhea. No abdominal pain. No change in mental status. Ultimately the patient decided to come in to the hospital for further evaluation. The chest x-rays were done in the hospital showed significant elevation of the right hemidiaphragm which is a new findings compared to the previous chest x-rays. A CAT scan of the chest was also done and this is a CT angios done to rule out pulmonary embolism. The findings showed a patchy opacity within the medial right upper lobe of the lung with peribronchial thickening. However, the major abnormalities that was noted is in the right lower lobe where the right hemidiaphragm is felt to be quite elevated and that it probably some residual consolidation within the right lower lobe area. I do suspect an underlying diaphragmatic weakness/paralysis that has developed recently knowing that this abnormality was not present on previous x-rays that were done earlier on the same patient. For now, the patient has no other complaints. Her white cell count is at 10.4. She was started on IV Zosyn. She was started on bronchodilators. She was started on systemic steroids. She was started on Valtrex regarding her herpetic labial lesions. Pulmonate consultation was requested for further advice. Influenza A and B screen was negative. On 08/23/2016 the patient is being seen in follow-up. Note that on yesterday's evaluation of suspected a right hemidiaphragmatic paralysis and we sent this patient for a sniff test to confirm the findings. During her sniff test, the patient was found to have bilateral air under the diaphragms and this was consistent with pneumoperitoneum. Immediately the patient was evaluated and the patient seems to have developing increased abdominal pain and tenderness over the past 6-12 hours. Based on that, a stat consultation for surgery was placed and the patient was evaluated and seen by Dr. Siu and she'll be taken to the operating room. There is a suspicion that the patient has perforated day gastric ulcer or a perforated diverticulum. She will need an expiratory laparoscopy with possible open laparotomy. The findings of the x-ray were discussed with the patient length and she is aware of this. On 08/24/2016 the patient is being seen in follow-up. The patient is doing well. As mentioned earlier, the patient was taken to the operating room yesterday for pneumoperitoneum. She was found to have perforated diverticulitis. The surgery was done by Dr. Siu. The patient underwent diagnostic laparoscopy and following that she underwent sigmoid resection with Maloney's pouch and diverting colostomy for perforated diverticulitis. YUVAL drains were placed 2 and following that the patient was extubated and she was brought into the intensive care unit. Overnight the patient had some low urine output and she was given a bolus of 1 L of normal saline and currently she is on a maintenance of 1 25 mL an hour. She has a good urine output. No nausea. No vomiting. NG tube in place. The output from the NG tube is been around 500 mL since she arrived from the operating room. Colostomy site is viable and nonfunctional yet. No abdominal pain. No swelling lower extremities. No respiratory distress. Chest x-ray showing significant elevation of the right hemidiaphragm consistent with diaphragmatic paralysis. NG tube is in a good location. The patient remains on IV Zosyn. The white cell count is not elevated. Patient was reevaluated on 08/25/2016, seems to be doing very well, x-ray continues to show significant elevation of the right hemidiaphragm, patient tolerated surgery quite well, and she is scheduled to have a PICC line placement today. Patient will receive TPN, and I would likely keep her in the ICU today or possibly transfer later today to a regular medical floor. Remains on antibiotics for her abdominal sepsis. Presently she is in no form of respiratory distress. Patient was reevaluated today on 08/26/2016, continues to do well, were still waiting for a bed to be available on a regular medical floor to transfer the patient to a regular medical floor. No major issues overnight. Patient had a PICC line placed uneventfully. And TPN was started. Labs were reviewed, she has a relatively normal basic metabolic profile and normal CBC except for hemoglobin of 10.8. Patient was reevaluated today on 08/27/2016, continues to have nasogastric tube in place, no output from the colostomy at this point so far since surgery, patient is a bit tachycardic in spite of beta blockers given IV push by cardiology. Blood pressures seems to be stable. Patient has been intermittently anxious requiring sedation. No shortness of breath, no cough, no wheezing. Chest x-ray is showing definite improvement in her elevation of her right hemidiaphragm. And no evidence of infiltrates or edema. Patient was reevaluated today on 08/28/2016, doing relatively well overall, hemodynamically stable, continues to have a nasogastric tube in place, continues to have no output in the colostomy bag, heart rate seems to be better controlled, blood pressure remains stable,labs were reviewed the seem to be unremarkable including a basic metabolic profile and CBC. Hence I plan to transfer the patient out of the ICU to a medical surgical floor. The patient is seen again today 08/29/2016 on the selective care unit. She is awake and alert in no acute distress. She is still he nothing by mouth with a nasogastric tube in place. She was receiving TPN for nutrition via PICC line. Scant output in the colostomy bag. She denies any worsening shortness of breath , cough or congestion. Her pain is well controlled. Her hemoglobin is stable at 11.1. No leukocytosis. Objective - Vital Signs Vital signs: Vital Signs Temp 97.6 F 08/29/16 12:00 Pulse 116 H 08/29/16 12:00 Resp 20 08/29/16 12:00 BP 121/57 08/29/16 12:00 Pulse Ox 94 L 08/29/16 12:00 Intake & Output 08/28/16 08/29/16 08/29/16 18:59 06:59 18:59 Intake Total 1735.874 30.505 377.472 Output Total 430 450 Balance 1305.874 -419.495 377.472 Weight 79 kg 79 kg Intake: IV 180 0.9% NaCl with KCl 20 Meq 180 /l 1,000 ml @ 100 mls/hr IV .Q10H [facility] Rx#: [id number] Intake, IV Titration 1555.874 30.505 377.472 Amount 0.9% NaCl with KCl 20 Meq 125 /l 1,000 ml @ 125 mls/hr IV .Q8H [facility] Rx#:[id number] Acyclovir Sodium 500 mg 100 In Sodium Chloride 0.9% 100 ml @ 100 mls/hr IVPB Q8H [facility] Rx#:[id number] Insulin Regular 100 unit 10.033 In Sodium Chloride 0.9% 100 ml @ Per Protocol IV .Q0M [facility] Rx#:[id number] Insulin Regular 100 unit 26.674 30.505 27.472 In Sodium Chloride 0.9% 100 ml @ Titrate IV .Q0M [facility] Rx#:[id number] Magnesium Sulfate-D5w Pmx 100 1 gm In Dextrose/Water 1 100ml.bag @ 100 mls/hr IVPB Q1H [facility] Rx#: [id number] Mvi, Adult No.4 with Vit 50 K 10 ml Trace (Conc-1Ml/ Dose) 1 ml In Amino Acid 5%-D25w+Lytes*E* 1,000 ml @ 50 mls/hr IV .[id number] [facility] Rx#:[id number] Mvi, Adult No.4 with Vit 250 250 K 10 ml Trace (Conc-1Ml/ Dose) 1 ml In Amino Acid 5%-D25w+Lytes*E* 1,000 ml @ 50 mls/hr IV .[id number] [facility] Rx#:[id number] Mvi, Adult No.4 with Vit 944.167 K 10 ml Trace (Conc-1Ml/ Dose) 1 ml Sodium Phosphate 10 mmol In Amino Acid 5%-D25w+Lytes* E* 1,000 ml @ 50 mls/hr IV .[id number] [facility] Rx#: [id number] Piperacillin-Tazobactam 3 50 .375 gm In Dextrose/Water 1 50ml.bag @ 12.5 mls/hr IVPB Q8HR [facility] Rx#: [id number] Output: Drainage 280 150 Right Lower Abdomen 125 70 Right Upper Abdomen 155 80 Urine 150 300 Other: Voiding Method Toilet Toilet Bedpan # Voids 1 1 1 - Exam GENERAL EXAM: Alert, active, comfortable in no apparent distress. HEAD: Normocephalic. EYES: Normal reaction of pupils, equal size. NOSE: Clear with pink turbinates. Nasogastric tube secured in place. THROAT: No erythema or exudates. NECK: No masses, no JVD. CHEST: No chest wall deformity. LUNGS: Equal air entry with no crackles, wheeze, rhonchi or dullness. CVS: S1 and S2 normal with no audible murmurs, regular rhythm. ABDOMEN: Colostomy bag in place. Soft. Extremities: There is trace peripheral edema. No clubbing, no cyanosis. Peripheral pulses are intact. - Labs CBC & Chem 7: 08/29/16 05:50 08/29/16 05:50 Labs: Abnormal Lab Results - Last 24 Hours (Table) 08/28/16 08/28/16 08/28/16 Range/Units 13:01 15:17 17:03 RBC (3.80-5.40) m/uL Hgb (11.4-16.0) gm/dL Hct (34.0-46.0) % Lymphocytes # (1.0-4.8) k/uL Sodium (137-145) mmol/L Carbon Dioxide (22-30) mmol/L Glucose (74-99) mg/dL POC Glucose (mg/dL) 270 H 232 H 164 H (75-99) mg/dL Calcium (8.4-10.2) mg/dL 08/28/16 08/28/16 08/28/16 Range/Units 19:22 21:07 23:00 RBC (3.80-5.40) m/uL Hgb (11.4-16.0) gm/dL Hct (34.0-46.0) % Lymphocytes # (1.0-4.8) k/uL Sodium (137-145) mmol/L Carbon Dioxide (22-30) mmol/L Glucose (74-99) mg/dL POC Glucose (mg/dL) 148 H 183 H 204 H (75-99) mg/dL Calcium (8.4-10.2) mg/dL 08/29/16 08/29/16 08/29/16 Range/Units 01:06 02:58 05:02 RBC (3.80-5.40) m/uL Hgb (11.4-16.0) gm/dL Hct (34.0-46.0) % Lymphocytes # (1.0-4.8) k/uL Sodium (137-145) mmol/L Carbon Dioxide (22-30) mmol/L Glucose (74-99) mg/dL POC Glucose (mg/dL) 132 H 197 H 263 H (75-99) mg/dL Calcium (8.4-10.2) mg/dL 08/29/16 08/29/16 08/29/16 Range/Units 05:50 05:50 07:23 RBC 3.64 L (3.80-5.40) m/uL Hgb 11.1 L (11.4-16.0) gm/dL Hct 33.3 L (34.0-46.0) % Lymphocytes # 0.6 L (1.0-4.8) k/uL Sodium 134 L (137-145) mmol/L Carbon Dioxide 21 L (22-30) mmol/L Glucose 214 H (74-99) mg/dL POC Glucose (mg/dL) 154 H (75-99) mg/dL Calcium 7.9 L (8.4-10.2) mg/dL 08/29/16 08/29/16 Range/Units 09:34 11:36 RBC (3.80-5.40) m/uL Hgb (11.4-16.0) gm/dL Hct (34.0-46.0) % Lymphocytes # (1.0-4.8) k/uL Sodium (137-145) mmol/L Carbon Dioxide (22-30) mmol/L Glucose (74-99) mg/dL POC Glucose (mg/dL) 112 H 163 H (75-99) mg/dL Calcium (8.4-10.2) mg/dL Assessment and Plan Plan: 1 acute pneumoperitoneum attributed to a perforated diverticulitis. The patient had a sigmoid resection with Maloney's pouch and diverting colostomy. She is hemodynamically stable. 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 Less likely is the possibility of a pneumonia. Chest x-ray seems to be improving and there is better aeration of the right lung. 3 shortness of breath secondary to above 4 preserved LV function with moderate degree of concentric left Hypertrophy/ hypertensive heart disease based on echocardiogram 5 diabetes mellitus 6 obesity 7 osteoarthritis Plan: The patient was seen and evaluated by Dr. Bowen. She remains stable from the pulmonary and critical care standpoint. We'll continue with her current medications. We'll continue to follow.
[2016-08-29 13:25] LABS: Glucose,Whole Blood 217 mg/dL (75-99)
[2016-08-29] MEDS: POTASSIUM CHLORIDE 10 MEQ in WATER FOR INJECTION 1 100ML.BAG IVPB SCH ×2 (14:39→15:45)
[2016-08-29 15:59] LABS: Glucose,Whole Blood 261 mg/dL (75-99)
--- NOTE | 2016-08-29 16:19 | PN ---
Nisha is seen on rounds. Her son is at bedside. She has not been out of bed today. She was reported to be into a chair yesterday complaining about the nasogastric tube. PHYSICAL EXAMINATION: She has been afebrile. Her pulse has been in the low 100s to one tens, respirations in the 20s, blood pressure is 121/57. HEART: Regular rate and rhythm, slightly tachycardic. LUNGS: Diminished at the right base, but clearing. Abdomen soft. No real bowel sounds at this point. The ostomy is pink and viable. There is no significant output in the appliance. Her wound shows some mucopurulent drainage from the lower portion. I do not see that Aquacel Ag packing as I had ordered yesterday. The remaining nessa are removed. The wound is probed with a gloved finger. The fascia underneath appears intact. There does not appear to be any subcutaneous abscess. No sign of any cellulitis. ASSESSMENT: 1. Status post sigmoid resection for perforated diverticulitis. 2. Postoperative ileus, which is expected based on the amount of fibrinous material which was present on her small bowel. PLAN: I discussed the findings with patient and son. At present, we will continue nasogastric decompression until she begins having output from the ostomy. If she starts to develop any signs of fever or leukocytosis, we may need to repeat the CAT scan to make sure she does not have any sort of an intra-abdominal infection going on but at this point this appears to be a normal ileus based on intraoperative findings. Encourage activity. She is progressing slowly. Dr. Gaitan will see her over the weekend.
[2016-08-29 18:16] LABS: Glucose,Whole Blood 159 mg/dL (75-99)
[2016-08-29] MEDS: FAT EMULSION 20% 250 ML in EMPTY BAG 1 BAG IV SCH (18:17)
[2016-08-29 19:04] LABS: Glucose,Whole Blood 170 mg/dL (75-99)
[2016-08-29 20:09] LABS: Glucose,Whole Blood 196 mg/dL (75-99)
[2016-08-29 22:00] LABS: Glucose,Whole Blood 251 mg/dL (75-99)
--- NOTE | 2016-08-29 22:03 | PN ---
DATE OF SERVICE: 08/29/2016 This 75-year-old woman was admitted with sigmoid perforation, also had surgery. The patient still has NG tube. Patient is on TPN. Patient is mildly confused. Patient also had multiple other medical problems present on admission. Surgery as well as Pulmonology following the patient closely. PAST MEDICAL HISTORY: Reviewed. Review of systems could not be taken. The patient is currently mildly confused. Current medications are reviewed and include: 1. Acyclovir q.8. 2. Ventolin every 6 hours p.r.n. 3. DuoNeb q.i.d. and p.r.n. 4. Pulmicort 1 mg b.i.d. 5. Lovenox 40 mg subcu daily. 6. TPN. 7. Perforomist 230 b.i.d. 8. Haldol 2 mg IV every 6 p.r.n. 9. Dilaudid p.r.n. 10. Humalog. 11. Reglan. 12. Narcan. 13. Zofran. 14. Protonix. 15. Zosyn. PHYSICAL EXAM: Patient is conscious, but confused. Pulse is 103, blood pressure 117/57, respirations 17, temperature 97.2, pulse ox 97% on 2L. HEENT: Conjunctivae normal. Oral mucosa moist. NECK: No jugular venous distention. No carotid bruits. No lymph node enlargement. CARDIOVASCULAR: S1 and S2 muffled. No S3. No S4. RESPIRATORY: Breath sounds diminished in the bases. A few scattered rhonchi. No crackles. ABDOMEN: Soft, status post surgery. NG tube in situ. LEGS: No edema. No swelling. NERVOUS SYSTEM: Diffusely weak. LABS: WBC 6.6, hemoglobin IS 11.1. Sodium 134, glucose 261. ASSESSMENT: 1. Acute sigmoid perforation, status post laparotomy as well as Maged procedure, still on nasogastric tube. 2. Chronic obstructive pulmonary disease, acute exacerbation, multifactorial, with possible right lower lobe pneumonia versus atelectasis, possibly gram-negative, present on admission. 3. Mild polycythemia, possibly secondary to dehydration, present on admission. 4. Change in mental status, metabolic encephalopathy, acute, multifactorial. 5. Possible right diaphragmatic paralysis, present on admission. 6. Increased D-dimer with no evidence of pulmonary embolism. 7. Increased random blood sugar, diabetes mellitus type 2. 8. Hypertension, essential. 9. History of leaky valve. 10. History of hiatal hernia. 11. History of degenerative joint disease. 12. History of mild hypocalcemia. 13. History of shingles. 14. History of back surgery and degenerative joint disease. 15. History of cardiac catheterization. 16. History of anxiety. 17. Acute metabolic encephalopathy, possible delirium. 18. FULL CODE. RECOMMENDATIONS AND DISCUSSION: In this 75-year-old woman who presented with multiple complex medical issues, we will monitor the patient closely, continue with current medications, continue with symptomatic treatment, continue with TPN. Otherwise, continue to monitor and repeat lytes. PT and OT evaluation. Closely follow with multiple consultants. Guarded prognosis. Further recommendations to follow.
[2016-08-30 00:03] LABS: Glucose,Whole Blood 217 mg/dL (75-99)
[2016-08-30] MEDS: METOPROLOL TARTRATE 5 MG/5 ML VIAL IVP SCH ×5 (00:49→23:53)
[2016-08-30] MEDS: PIPERACILLIN-TAZOBACTAM 3.375 GM in DEXTROSE/WATER 1 50ML.BAG IVPB SCH ×4 (00:49→23:53)
[2016-08-30] MEDS: ABREVA TOPICAL SCH ×6 (00:50→23:54)
[2016-08-30] MEDS: INSULIN REGULAR 100 UNIT in SODIUM CHLORIDE 0.9% 100 ML IV SCH (02:11)
[2016-08-30 02:12] LABS: Glucose,Whole Blood 204 mg/dL (75-99)
[2016-08-30] MEDS: HYDROmorphone 1 MG/ML 1 ML SYRINGE IVP PRN ×6 (02:13→23:53)
[2016-08-30 04:00] LABS: Glucose,Whole Blood 204 mg/dL (75-99)
[2016-08-30] MEDS: INSULIN LISPRO (humaLOG) 300 UNIT/3 ML VIAL SQ SCH ×3 (04:45→16:40)
[2016-08-30] MEDS: LORazepam 2 MG/ML SYRINGE IV PRN ×2 (06:00→20:07)
[2016-08-30] MEDS: ACYCLOVIR SODIUM 500 MG in SODIUM CHLORIDE 0.9% 100 ML IVPB SCH ×3 (06:02→22:39)
[2016-08-30 06:13] LABS: Glucose,Whole Blood 210 mg/dL (75-99)
[2016-08-30 07:07] LABS: Basophils % (A) 0 %; CH 29.1; CHCM 31.8; Eosinophils # (A) 0.1 k/uL (0-0.7); Eosinophils % (A) 1 %; HCT 32.4 % (34.0-46.0); HDW 3.05; HGB 10.3 gm/dL (11.4-16.0); Hypochromasia Slight; Luc # (Auto) 0.14; Luc % (Auto) 2; Lymphocytes # (A) 0.6 k/uL (1.0-4.8); Lymphocytes % (A) 9 %; MCH 29.2 pg (25.0-35.0); MCHC 31.7 g/dL (31.0-37.0); Mean Platelet Volume 7.9; Monocytes # (A) 0.4 k/uL (0-1.0); Monocytes % (A) 6 %; Neutrophils % (A) 83 %; RBC 3.52 m/uL (3.80-5.40); RDW 14.1 % (11.5-15.5); WBC 7.3 k/uL (3.8-10.6); WBC (Perox) 7.93
[2016-08-30 07:22] LABS: Anion Gap 8 mmol/L; Blood Urea Nitrogen 12 mg/dL (7-17); Calcium 7.6 mg/dL (8.4-10.2); Carbon Dioxide 23 mmol/L (22-30); Chloride 102 mmol/L (98-107); Glucose 224 mg/dL (74-99); Magnesium 2.1 mg/dL (1.6-2.3); Non-African American GFR(MDRD) >60 (>60 ml/min/1.73 sqM); Phosphorous 3.2 mg/dL (2.5-4.5); Potassium 4.2 mmol/L (3.5-5.1); Sodium 133 mmol/L (137-145)
[2016-08-30] MEDS: BUDESONIDE 1 MG/2 ML NEBU INHALATION SCH ×2 (07:26→20:24)
[2016-08-30] MEDS: FORMOTEROL FUMARATE 20 MCG/2 ML NEBU INHALATION SCH ×2 (07:26→20:24)
[2016-08-30] MEDS: IPRATROPIUM-ALBUTEROL 3 ML NEB INHALATION SCH ×4 (07:26→20:24)
--- NOTE | 2016-08-30 07:48 | XR ---
EXAMINATION TYPE: XR chest 1V portable DATE OF EXAM: 08/30/2016 7:13 AM HISTORY: Pleural effusion. REFERENCE: Previous study dated 08/27/2016. FINDINGS: An NG tube is in place. Its tip is within the stomach. There is a worsening right-sided pleural effusion. There is a smaller left pleural effusion. The hear t isn't enlarged. There is atelectasis at the right lung base. IMPRESSION: 1. CARDIOMEGALY. 2. WORSENING RIGHT-SIDED EFFUSION. 3. RIGHT BASILAR ATELECTASIS.
[2016-08-30 08:03] LABS: Glucose,Whole Blood 238 mg/dL (75-99)
[2016-08-30 09:21] LABS: Glucose,Whole Blood 220 mg/dL (75-99)
[2016-08-30] MEDS: MVI, ADULT NO.4 WITH VIT K 10 ML, TRACE (CONC-1ML/DOSE) 1 ML in AMINO ACID 5%-D25W+LYTE... IV SCH ×3 (10:05)
[2016-08-30] MEDS: PANTOPRAZOLE 40 MG/10 ML VIAL IV SCH (10:05)
[2016-08-30] MEDS: ENOXAPARIN 40 MG/0.4 ML SYRINGE SQ SCH (10:06)
[2016-08-30 10:08] LABS: Glucose,Whole Blood 211 mg/dL (75-99)
--- NOTE | 2016-08-30 10:17 | P.PN ---
Subjective Principal diagnosis: Acute pneumoperitoneum secondary to perforated diverticulitis, right hemidiaphragm paralysis I was asked to evaluate this 75-year-old female patient for symptoms of pneumonia. Note that the patient was having some increased cough and congestion and dyspnea for the past 10 days. She was being treated by Keli Vargas NP, and initially she was given a course of amoxicillin followed by a Medrol Dosepak. Her symptoms remain unchanged and the patient was still having the same symptomatology and she was given Levaquin. During this time, the patient reported limited improvement if any and she also developed some herpetic lesions in her upper lips. No chills. No fever. No pleurisy. No chest pain. No trauma to the chest. No falls. No nausea. No vomiting. No diarrhea. No abdominal pain. No change in mental status. Ultimately the patient decided to come in to the hospital for further evaluation. The chest x-rays were done in the hospital showed significant elevation of the right hemidiaphragm which is a new findings compared to the previous chest x-rays. A CAT scan of the chest was also done and this is a CT angios done to rule out pulmonary embolism. The findings showed a patchy opacity within the medial right upper lobe of the lung with peribronchial thickening. However, the major abnormalities that was noted is in the right lower lobe where the right hemidiaphragm is felt to be quite elevated and that it probably some residual consolidation within the right lower lobe area. I do suspect an underlying diaphragmatic weakness/paralysis that has developed recently knowing that this abnormality was not present on previous x-rays that were done earlier on the same patient. For now, the patient has no other complaints. Her white cell count is at 10.4. She was started on IV Zosyn. She was started on bronchodilators. She was started on systemic steroids. She was started on Valtrex regarding her herpetic labial lesions. Pulmonate consultation was requested for further advice. Influenza A and B screen was negative. On 08/23/2016 the patient is being seen in follow-up. Note that on yesterday's evaluation of suspected a right hemidiaphragmatic paralysis and I sent this patient for a sniff test to confirm the findings. During her sniff test, the patient was found to have bilateral air under the diaphragms and this was consistent with pneumoperitoneum. Immediately the patient was evaluated and the patient seems to have developing increased abdominal pain and tenderness over the past 6-12 hours. Based on that, a stat consultation for surgery was placed and the patient was evaluated and seen by Dr. Siu and she'll be taken to the operating room. There is a suspicion that the patient has perforated day gastric ulcer or a perforated diverticulum. She will need an expiratory laparoscopy with possible open laparotomy. The findings of the x-ray were discussed with the patient length and she is aware of this. On 08/24/2016 the patient is being seen in follow-up. The patient is doing well. As mentioned earlier, the patient was taken to the operating room yesterday for pneumoperitoneum. She was found to have perforated diverticulitis. The surgery was done by Dr. Siu. The patient underwent diagnostic laparoscopy and following that she underwent sigmoid resection with Maloney's pouch and diverting colostomy for perforated diverticulitis. YUVAL drains were placed 2 and following that the patient was extubated and she was brought into the intensive care unit. Overnight the patient had some low urine output and she was given a bolus of 1 L of normal saline and currently she is on a maintenance of 1 25 mL an hour. She has a good urine output. No nausea. No vomiting. NG tube in place. The output from the NG tube is been around 500 mL since she arrived from the operating room. Colostomy site is viable and nonfunctional yet. No abdominal pain. No swelling lower extremities. No respiratory distress. Chest x-ray showing significant elevation of the right hemidiaphragm consistent with diaphragmatic paralysis. NG tube is in a good location. The patient remains on IV Zosyn. The white cell count is not elevated. Patient was reevaluated on 08/25/2016, seems to be doing very well, x-ray continues to show significant elevation of the right hemidiaphragm, patient tolerated surgery quite well, and she is scheduled to have a PICC line placement today. Patient will receive TPN, and I would likely keep her in the ICU today or possibly transfer later today to a regular medical floor. Remains on antibiotics for her abdominal sepsis. Presently she is in no form of respiratory distress. Patient was reevaluated today on 08/26/2016, continues to do well, were still waiting for a bed to be available on a regular medical floor to transfer the patient to a regular medical floor. No major issues overnight. Patient had a PICC line placed uneventfully. And TPN was started. Labs were reviewed, she has a relatively normal basic metabolic profile and normal CBC except for hemoglobin of 10.8. Patient was reevaluated today on 08/27/2016, continues to have nasogastric tube in place, no output from the colostomy at this point so far since surgery, patient is a bit tachycardic in spite of beta blockers given IV push by cardiology. Blood pressures seems to be stable. Patient has been intermittently anxious requiring sedation. No shortness of breath, no cough, no wheezing. Chest x-ray is showing definite improvement in her elevation of her right hemidiaphragm. And no evidence of infiltrates or edema. Patient was reevaluated today on 08/28/2016, doing relatively well overall, hemodynamically stable, continues to have a nasogastric tube in place, continues to have no output in the colostomy bag, heart rate seems to be better controlled, blood pressure remains stable,labs were reviewed the seem to be unremarkable including a basic metabolic profile and CBC. Hence I plan to transfer the patient out of the ICU to a medical surgical floor. The patient is seen again today 08/29/2016 on the selective care unit. She is awake and alert in no acute distress. She is still he nothing by mouth with a nasogastric tube in place. She was receiving TPN for nutrition via PICC line. Scant output in the colostomy bag. She denies any worsening shortness of breath , cough or congestion. Her pain is well controlled. Her hemoglobin is stable at 11.1. No leukocytosis. Reevaluated today on 08/30/2016, she seems to be more awake today, in no form of respiratory distress, small amount of serosanguineous fluid noted in the colostomy bag patient denies any worsening shortness of breath, pain is fairly well controlled, labs are all reviewed. Objective - Vital Signs Vital signs: Vital Signs Temp 98.4 F 08/30/16 08:00 Pulse 116 H 08/30/16 08:00 Resp 18 08/30/16 08:00 BP 120/58 08/30/16 08:00 Pulse Ox 97 08/30/16 08:00 Intake & Output 08/29/16 08/30/16 08/30/16 18:59 06:59 18:59 Intake Total 402.125 810.323 7.531 Output Total 700 2060 Balance -297.875 -1249.677 7.531 Weight 79 kg 76.5 kg Intake: Intake, IV Titration 402.125 710.323 7.531 Amount Acyclovir Sodium 500 mg 100 In Sodium Chloride 0.9% 100 ml @ 100 mls/hr IVPB Q8H [facility] Rx#:[id number] Fat Emulsion 20% 250 ml 21 In Empty Bag 1 bag @ 21 mls/hr IV MoWeFr@1800 [facility] Rx#:[id number] Insulin Regular 100 unit 52.125 39.323 7.531 In Sodium Chloride 0.9% 100 ml @ Titrate IV .Q0M [facility] Rx#:[id number] Levofloxacin 750Mg-D5w 150 Pmx 750 mg In Dextrose/ Water 1 150ml.bag @ 100 mls/hr IVPB Q24H [facility] Rx#: [id number] Magnesium Sulfate-D5w Pmx 100 1 gm In Dextrose/Water 1 100ml.bag @ 100 mls/hr IVPB Q1H [facility] Rx#: [id number] Mvi, Adult No.4 with Vit 250 400 K 10 ml Trace (Conc-1Ml/ Dose) 1 ml In Amino Acid 5%-D25w+Lytes*E* 1,000 ml @ 50 mls/hr IV .[id number] [facility] Rx#:[id number] Oral 100 Output: Drainage 70 150 Right Lower Abdomen 40 90 Right Upper Abdomen 30 60 Urine 630 1910 Straight 600 760 Other: Voiding Method Bedpan Bedpan Bedpan # Voids 0 2 - Exam GENERAL EXAM: Alert, active, comfortable in no apparent distress. HEAD: Normocephalic. EYES: Normal reaction of pupils, equal size. NOSE: Clear with pink turbinates. Nasogastric tube secured in place. THROAT: No erythema or exudates. NECK: No masses, no JVD. CHEST: No chest wall deformity. LUNGS: Equal air entry with no crackles, wheeze, rhonchi or dullness. CVS: S1 and S2 normal with no audible murmurs, regular rhythm. ABDOMEN: Colostomy bag in place. Soft. Extremities: There is trace peripheral edema. No clubbing, no cyanosis. Peripheral pulses are intact. - Labs CBC & Chem 7: 08/30/16 06:11 08/30/16 06:11 Labs: Abnormal Lab Results - Last 24 Hours (Table) 08/29/16 08/29/16 08/29/16 Range/Units 11:36 13:10 15:48 RBC (3.80-5.40) m/uL Hgb (11.4-16.0) gm/dL Hct (34.0-46.0) % Lymphocytes # (1.0-4.8) k/uL Sodium (137-145) mmol/L Glucose (74-99) mg/dL POC Glucose (mg/dL) 163 H 217 H 261 H (75-99) mg/dL Calcium (8.4-10.2) mg/dL 08/29/16 08/29/16 08/29/16 Range/Units 18:12 19:02 20:07 RBC (3.80-5.40) m/uL Hgb (11.4-16.0) gm/dL Hct (34.0-46.0) % Lymphocytes # (1.0-4.8) k/uL Sodium (137-145) mmol/L Glucose (74-99) mg/dL POC Glucose (mg/dL) 159 H 170 H 196 H (75-99) mg/dL Calcium (8.4-10.2) mg/dL 08/29/16 08/30/16 08/30/16 Range/Units 21:58 00:02 02:11 RBC (3.80-5.40) m/uL Hgb (11.4-16.0) gm/dL Hct (34.0-46.0) % Lymphocytes # (1.0-4.8) k/uL Sodium (137-145) mmol/L Glucose (74-99) mg/dL POC Glucose (mg/dL) 251 H 217 H 204 H (75-99) mg/dL Calcium (8.4-10.2) mg/dL 08/30/16 08/30/16 08/30/16 Range/Units 03:59 06:10 06:11 RBC (3.80-5.40) m/uL Hgb (11.4-16.0) gm/dL Hct (34.0-46.0) % Lymphocytes # (1.0-4.8) k/uL Sodium 133 L (137-145) mmol/L Glucose 224 H (74-99) mg/dL POC Glucose (mg/dL) 204 H 210 H (75-99) mg/dL Calcium 7.6 L (8.4-10.2) mg/dL 08/30/16 08/30/16 08/30/16 Range/Units 06:11 08:01 09:08 RBC 3.52 L (3.80-5.40) m/uL Hgb 10.3 L (11.4-16.0) gm/dL Hct 32.4 L (34.0-46.0) % Lymphocytes # 0.6 L (1.0-4.8) k/uL Sodium (137-145) mmol/L Glucose (74-99) mg/dL POC Glucose (mg/dL) 238 H 220 H (75-99) mg/dL Calcium (8.4-10.2) mg/dL 08/30/16 Range/Units 09:56 RBC (3.80-5.40) m/uL Hgb (11.4-16.0) gm/dL Hct (34.0-46.0) % Lymphocytes # (1.0-4.8) k/uL Sodium (137-145) mmol/L Glucose (74-99) mg/dL POC Glucose (mg/dL) 211 H (75-99) mg/dL Calcium (8.4-10.2) mg/dL Assessment and Plan Plan: 1 acute pneumoperitoneum attributed to a perforated diverticulitis. The patient had a sigmoid resection with Maloney's pouch and diverting colostomy. She is hemodynamically stable. 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 Less likely is the possibility of a pneumonia. Chest x-ray seems to be improving and there is better aeration of the right lung. 3 shortness of breath secondary to above 4 preserved LV function with moderate degree of concentric left Hypertrophy/ hypertensive heart disease based on echocardiogram 5 diabetes mellitus 6 obesity 7 osteoarthritis Recommendation: Continue present treatment plan as per internal medicine and as per surgery, we'll continue to follow. Time with Patient: Less than 30
[2016-08-30 12:06] LABS: Glucose,Whole Blood 176 mg/dL (75-99)
[2016-08-30] MEDS: MVI, ADULT NO.4 WITH VIT K 10 ML, TRACE (CONC-1ML/DOSE) 1 ML, SODIUM CHLORIDE 4MEQ/ML V... IV SCH ×4 (12:47)
[2016-08-30 14:17] LABS: Glucose,Whole Blood 203 mg/dL (75-99)
--- NOTE | 2016-08-30 14:52 | P.PN ---
Progress Note - Text Patient is stable. Had Maged sigmoid resection last week for complicated diverticular disease. No fever. Still no output however from her colostomy. NG output is getting less. The abdomen is otherwise soft. Stoma looks healthy. Sanguinous drainage from both drains. Incision looks fine with the gaps between the santosh with no significant drainage of purulence. WBC is normal. Impression stable postoperative course. Ileus improving. Recommendation continued NG tube the other day or so and continue current management.
[2016-08-30 16:20] LABS: Glucose,Whole Blood 217 mg/dL (75-99)
[2016-08-30 18:41] LABS: Glucose,Whole Blood 256 mg/dL (75-99)
[2016-08-30] MEDS: LEVOFLOXACIN 750MG-D5W PMX 750 MG in DEXTROSE/WATER 1 150ML.BAG IVPB SCH (20:06)
[2016-08-30 20:32] LABS: Glucose,Whole Blood 264 mg/dL (75-99)
[2016-08-30 22:35] LABS: Glucose,Whole Blood 233 mg/dL (75-99)
[2016-08-31 00:55] LABS: Glucose,Whole Blood 256 mg/dL (75-99)
[2016-08-31] MEDS: INSULIN REGULAR 100 UNIT in SODIUM CHLORIDE 0.9% 100 ML IV SCH (01:53)
[2016-08-31 02:31] LABS: Glucose,Whole Blood 226 mg/dL (75-99)
[2016-08-31] MEDS: HYDROmorphone 1 MG/ML 1 ML SYRINGE IVP PRN ×4 (04:18→22:52)
[2016-08-31 04:36] LABS: Glucose,Whole Blood 224 mg/dL (75-99)
[2016-08-31] MEDS: INSULIN LISPRO (humaLOG) 300 UNIT/3 ML VIAL SQ SCH ×3 (06:18→17:32)
[2016-08-31 06:29] LABS: Glucose,Whole Blood 216 mg/dL (75-99)
[2016-08-31 06:45] LABS: Basophils % (A) 0 %; CH 29.3; CHCM 31.9; Eosinophils % (A) 1 %; HCT 31.6 % (34.0-46.0); HDW 3.02; Hypochromasia Slight; Luc # (Auto) 0.16; Luc % (Auto) 2; Lymphocytes # (A) 0.5 k/uL (1.0-4.8); Lymphocytes % (A) 7 %; MCHC 31.5 g/dL (31.0-37.0); MCV 92.2 fL (80.0-100.0); Mean Platelet Volume 8.3; Monocytes # (A) 0.4 k/uL (0-1.0); Monocytes % (A) 6 %; Neutrophils # (A) 6.3 k/uL (1.3-7.7); Neutrophils % (A) 84 %; RBC 3.43 m/uL (3.80-5.40); WBC 7.5 k/uL (3.8-10.6); WBC (Perox) 8.24
[2016-08-31] MEDS: ACYCLOVIR SODIUM 500 MG in SODIUM CHLORIDE 0.9% 100 ML IVPB SCH ×3 (06:50→23:42)
[2016-08-31] MEDS: ABREVA TOPICAL SCH ×5 (06:50→23:43)
[2016-08-31] MEDS: METOPROLOL TARTRATE 5 MG/5 ML VIAL IVP SCH ×3 (06:50→17:53)
[2016-08-31 07:27] LABS: Anion Gap 8 mmol/L; Blood Urea Nitrogen 12 mg/dL (7-17); Carbon Dioxide 24 mmol/L (22-30); Chloride 102 mmol/L (98-107); Glucose 215 mg/dL (74-99); Potassium 4.1 mmol/L (3.5-5.1); Sodium 134 mmol/L (137-145)
[2016-08-31 07:28] LABS: Calcium 7.5 mg/dL (8.4-10.2); Non-African American GFR(MDRD) >60 (>60 ml/min/1.73 sqM); Phosphorous 3.3 mg/dL (2.5-4.5)
[2016-08-31] MEDS: PIPERACILLIN-TAZOBACTAM 3.375 GM in DEXTROSE/WATER 1 50ML.BAG IVPB SCH ×2 (08:00→15:24)
[2016-08-31] MEDS: MVI, ADULT NO.4 WITH VIT K 10 ML, TRACE (CONC-1ML/DOSE) 1 ML, SODIUM CHLORIDE 4MEQ/ML V... IV SCH ×4 (08:43)
[2016-08-31 08:46] LABS: Glucose,Whole Blood 198 mg/dL (75-99)
[2016-08-31] MEDS: IPRATROPIUM-ALBUTEROL 3 ML NEB INHALATION SCH ×5 (09:37→19:20)
[2016-08-31] MEDS: BUDESONIDE 1 MG/2 ML NEBU INHALATION SCH ×2 (09:37→19:20)
[2016-08-31] MEDS: FORMOTEROL FUMARATE 20 MCG/2 ML NEBU INHALATION SCH ×2 (09:37→19:20)
--- NOTE | 2016-08-31 10:11 | P.PN ---
Progress Note - Text The patient is afebrile. NG output is progressively diminishing. However minimal gastric to the colostomy. No significant stool. On examination vitals are stable color is good hydration good. Abdomen is soft nondistended Thickened drainage between the santosh. Generally quite soft with the mild postoperative tenderness. Stoma looks healthy. Drains are serosanguineous. Impression slow improvement status post Maged sigmoid resection. Recommendation Will R clamp NG tube today and if tolerated DC it and started on a clear liquid diet.
[2016-08-31] MEDS: ENOXAPARIN 40 MG/0.4 ML SYRINGE SQ SCH (10:15)
[2016-08-31] MEDS: PANTOPRAZOLE 40 MG/10 ML VIAL IV SCH (10:15)
[2016-08-31 10:58] LABS: Glucose,Whole Blood 201 mg/dL (75-99)
--- NOTE | 2016-08-31 10:58 | PN ---
DATE OF SERVICE: 08/30/2016 This is a 75-year-old woman who was admitted with sigmoid perforation; also had multiple medical problems including chronic obstructive pulmonary disease. The patient also had some confusion, change in mental status and metabolic encephalopathy. Patient also had urinary retention. Patient will be closely monitored. The patient is on TPN. PAST MEDICAL HISTORY: Reviewed. REVIEW OF SYSTEMS: CARDIOVASCULAR: No angina or palpitations. RESPIRATORY: No cough, no hemoptysis. GASTROINTESTINAL: No nausea, vomiting, or diarrhea. GENITOURINARY: No dysuria. NERVOUS: No numbness or weakness. Current medications are reviewed and include: 1. Acyclovir 500 mg IV q8. 2. Albuterol q6. 3. DuoNeb q.i.d. and p.r.n. 4. Pulmicort 1 mg b.i.d. 5. Lovenox 40 mg q.d. 6. TPN. 7. Protonix 20 mg b.i.d. 8. Haldol 2 mg q6 p.r.n. 9. Dilaudid. 10. Humalog. 11. Reglan. 12. Lopressor. 13. Narcan. 14. Zofran. 15. P.r.n. medications. PHYSICAL EXAMINATION: GENERAL: The patient is alert and oriented times two. VITAL SIGNS: Pulse is 106, blood pressure 136/61, respirations 20, temperature 97.6, pulse ox 90% on 2 liters. HEENT: Conjunctivae normal. NECK: No jugular venous distention. HEART: S1 and S2, muffled. RESPIRATORY: Breath sounds diminished at the bases. A few scattered rhonchi and crackles. ABDOMEN: Soft, status postsurgery. EXTREMITIES: Legs no edema, no swelling. NERVOUS: Higher functions as mentioned. No focal deficits. LYMPHATICS: No enlarged lymph nodes. SKIN: No rash. LABS: WBC 7.2. Hemoglobin is 10.3, glucose 264. ASSESSMENT: 1. Acute sigmoid perforation status post laparotomy as well as Maged's procedure, on NG tube. 2. Chronic obstructive pulmonary disease, acute exacerbation multifactorial with possible right lower lobe pneumonia versus atelectasis possibly gram-negative present on admission. 3. Mild polycythemia, possibly secondary to dehydration, present on admission. 4. Metabolic encephalopathy, acute, multifactorial. 5. Possible right diaphragmatic paralysis, present on admission. 6. On TPN. 7. Increased d-dimer with no evidence of pulmonary embolism. 8. Increased random blood sugar and diabetes mellitus type 2. 9. Hypertension, essential. 10. History of leaky valves. 11. History of hiatal hernia. 12. History of degenerative joint disease. 13. History of mild hypocalcemia. 14. History of shingles. 15. History of back surgery and degenerative joint disease. 16. History of cardiac catheterization. 17. History of anxiety. 18. Full code. 19. Urinary retention. Recommendations and discussion: This 75-year-old woman who presented with multiple complex medical issues, continue the current medications, continue with symptomatic treatment. I would recommend continue with bronchodilators and continue with empiric antibiotics. Otherwise, the cultures have been negative at this time. Closely monitored by surgery. TPN monitor closely. DVT prophylaxis. [place] catheter because of retention. Guarded prognosis because of multiple complex medical issues. Further recommendations to follow.
--- NOTE | 2016-08-31 11:01 | P.PN ---
Subjective Principal diagnosis: Acute pneumoperitoneum secondary to perforated diverticulitis, right hemidiaphragm paralysis I was asked to evaluate this 75-year-old female patient for symptoms of pneumonia. Note that the patient was having some increased cough and congestion and dyspnea for the past 10 days. She was being treated by Keli Vargas NP, and initially she was given a course of amoxicillin followed by a Medrol Dosepak. Her symptoms remain unchanged and the patient was still having the same symptomatology and she was given Levaquin. During this time, the patient reported limited improvement if any and she also developed some herpetic lesions in her upper lips. No chills. No fever. No pleurisy. No chest pain. No trauma to the chest. No falls. No nausea. No vomiting. No diarrhea. No abdominal pain. No change in mental status. Ultimately the patient decided to come in to the hospital for further evaluation. The chest x-rays were done in the hospital showed significant elevation of the right hemidiaphragm which is a new findings compared to the previous chest x-rays. A CAT scan of the chest was also done and this is a CT angios done to rule out pulmonary embolism. The findings showed a patchy opacity within the medial right upper lobe of the lung with peribronchial thickening. However, the major abnormalities that was noted is in the right lower lobe where the right hemidiaphragm is felt to be quite elevated and that it probably some residual consolidation within the right lower lobe area. I do suspect an underlying diaphragmatic weakness/paralysis that has developed recently knowing that this abnormality was not present on previous x-rays that were done earlier on the same patient. For now, the patient has no other complaints. Her white cell count is at 10.4. She was started on IV Zosyn. She was started on bronchodilators. She was started on systemic steroids. She was started on Valtrex regarding her herpetic labial lesions. Pulmonate consultation was requested for further advice. Influenza A and B screen was negative. On 08/23/2016 the patient is being seen in follow-up. Note that on yesterday's evaluation of suspected a right hemidiaphragmatic paralysis and I sent this patient for a sniff test to confirm the findings. During her sniff test, the patient was found to have bilateral air under the diaphragms and this was consistent with pneumoperitoneum. Immediately the patient was evaluated and the patient seems to have developing increased abdominal pain and tenderness over the past 6-12 hours. Based on that, a stat consultation for surgery was placed and the patient was evaluated and seen by Dr. Siu and she'll be taken to the operating room. There is a suspicion that the patient has perforated day gastric ulcer or a perforated diverticulum. She will need an expiratory laparoscopy with possible open laparotomy. The findings of the x-ray were discussed with the patient length and she is aware of this. On 08/24/2016 the patient is being seen in follow-up. The patient is doing well. As mentioned earlier, the patient was taken to the operating room yesterday for pneumoperitoneum. She was found to have perforated diverticulitis. The surgery was done by Dr. Siu. The patient underwent diagnostic laparoscopy and following that she underwent sigmoid resection with Maloney's pouch and diverting colostomy for perforated diverticulitis. YUVAL drains were placed 2 and following that the patient was extubated and she was brought into the intensive care unit. Overnight the patient had some low urine output and she was given a bolus of 1 L of normal saline and currently she is on a maintenance of 1 25 mL an hour. She has a good urine output. No nausea. No vomiting. NG tube in place. The output from the NG tube is been around 500 mL since she arrived from the operating room. Colostomy site is viable and nonfunctional yet. No abdominal pain. No swelling lower extremities. No respiratory distress. Chest x-ray showing significant elevation of the right hemidiaphragm consistent with diaphragmatic paralysis. NG tube is in a good location. The patient remains on IV Zosyn. The white cell count is not elevated. Patient was reevaluated on 08/25/2016, seems to be doing very well, x-ray continues to show significant elevation of the right hemidiaphragm, patient tolerated surgery quite well, and she is scheduled to have a PICC line placement today. Patient will receive TPN, and I would likely keep her in the ICU today or possibly transfer later today to a regular medical floor. Remains on antibiotics for her abdominal sepsis. Presently she is in no form of respiratory distress. Patient was reevaluated today on 08/26/2016, continues to do well, were still waiting for a bed to be available on a regular medical floor to transfer the patient to a regular medical floor. No major issues overnight. Patient had a PICC line placed uneventfully. And TPN was started. Labs were reviewed, she has a relatively normal basic metabolic profile and normal CBC except for hemoglobin of 10.8. Patient was reevaluated today on 08/27/2016, continues to have nasogastric tube in place, no output from the colostomy at this point so far since surgery, patient is a bit tachycardic in spite of beta blockers given IV push by cardiology. Blood pressures seems to be stable. Patient has been intermittently anxious requiring sedation. No shortness of breath, no cough, no wheezing. Chest x-ray is showing definite improvement in her elevation of her right hemidiaphragm. And no evidence of infiltrates or edema. Patient was reevaluated today on 08/28/2016, doing relatively well overall, hemodynamically stable, continues to have a nasogastric tube in place, continues to have no output in the colostomy bag, heart rate seems to be better controlled, blood pressure remains stable,labs were reviewed the seem to be unremarkable including a basic metabolic profile and CBC. Hence I plan to transfer the patient out of the ICU to a medical surgical floor. The patient is seen again today 08/29/2016 on the selective care unit. She is awake and alert in no acute distress. She is still he nothing by mouth with a nasogastric tube in place. She was receiving TPN for nutrition via PICC line. Scant output in the colostomy bag. She denies any worsening shortness of breath , cough or congestion. Her pain is well controlled. Her hemoglobin is stable at 11.1. No leukocytosis. Reevaluated today on 08/30/2016, she seems to be more awake today, in no form of respiratory distress, small amount of serosanguineous fluid noted in the colostomy bag patient denies any worsening shortness of breath, pain is fairly well controlled, labs are all reviewed. Reevaluated today on 08/31/2016, doing well from the pulmonary perspective no cough no wheezing no shortness of breath. Diminished nasogastric output noted, colostomy drainage is basically nil, minimal serosanguineous drainage noted no stool noted in the colostomy bag and that is being addressed by general surgery on the case. Also aware of that minimal drainage noted between the santosh of the surgical wound. Objective - Vital Signs Vital signs: Vital Signs Temp 99.1 F 08/31/16 08:00 Pulse 102 H 08/31/16 10:00 Resp 19 08/31/16 08:00 BP 137/58 08/31/16 08:00 Pulse Ox 94 L 08/31/16 08:00 Intake & Output 08/30/16 08/31/16 08/31/16 18:59 06:59 18:59 Intake Total 593.696 58.916 1208.044 Output Total 565 605 0 Balance 28.696 -274.338 4345.044 Weight 78.5 kg Intake: Intake, IV Titration 593.696 58.916 1208.044 Amount Acyclovir Sodium 500 mg 100 In Sodium Chloride 0.9% 100 ml @ 100 mls/hr IVPB Q8H [facility] Rx#:[id number] Insulin Regular 100 unit 43.696 58.916 11.377 In Sodium Chloride 0.9% 100 ml @ Titrate IV .Q0M [facility] Rx#:[id number] Mvi, Adult No.4 with Vit 500 50 K 10 ml Trace (Conc-1Ml/ Dose) 1 ml In Amino Acid 5%-D25w+Lytes*E* 1,000 ml @ 50 mls/hr IV .[id number] [facility] Rx#:[id number] Mvi, Adult No.4 with Vit 996.667 K 10 ml Trace (Conc-1Ml/ Dose) 1 ml Sodium Chloride 4Meq/ml Vial 16 meq In Amino Acid 5%-D25w +Lytes*E* 1,000 ml @ 50 mls/hr IV .[id number] [facility] Rx #:[id number] Piperacillin-Tazobactam 3 50 50 .375 gm In Dextrose/Water 1 50ml.bag @ 12.5 mls/hr IVPB Q8HR [facility] Rx#: [id number] Oral 0 Output: Gastric Drainage 100 Drainage 65 55 Right Lower Abdomen 50 35 Right Upper Abdomen 15 20 Urine 400 550 Straight 400 Stool 0 Other: Voiding Method Indwelling Catheter Indwelling Catheter Indwelling Catheter - Exam GENERAL EXAM: Alert, active, comfortable in no apparent distress. HEAD: Normocephalic. EYES: Normal reaction of pupils, equal size. NOSE: Clear with pink turbinates. Nasogastric tube secured in place. THROAT: No erythema or exudates. NECK: No masses, no JVD. CHEST: No chest wall deformity. LUNGS: Equal air entry with no crackles, wheeze, rhonchi or dullness. CVS: S1 and S2 normal with no audible murmurs, regular rhythm. ABDOMEN: Colostomy bag in place. Minimal serosanguineous drainage noted in the colostomy bag and in the drains, thick drainage noted in the surgical wound between the santosh being addressed by surgery on the case. Extremities: There is trace peripheral edema. No clubbing, no cyanosis. Peripheral pulses are intact. - Labs CBC & Chem 7: 08/31/16 06:09 08/31/16 06:09 Labs: Abnormal Lab Results - Last 24 Hours (Table) 08/30/16 08/30/16 08/30/16 Range/Units 12:04 14:15 16:18 RBC (3.80-5.40) m/uL Hgb (11.4-16.0) gm/dL Hct (34.0-46.0) % Lymphocytes # (1.0-4.8) k/uL Sodium (137-145) mmol/L Glucose (74-99) mg/dL POC Glucose (mg/dL) 176 H 203 H 217 H (75-99) mg/dL Calcium (8.4-10.2) mg/dL 08/30/16 08/30/16 08/30/16 Range/Units 18:29 20:31 22:34 RBC (3.80-5.40) m/uL Hgb (11.4-16.0) gm/dL Hct (34.0-46.0) % Lymphocytes # (1.0-4.8) k/uL Sodium (137-145) mmol/L Glucose (74-99) mg/dL POC Glucose (mg/dL) 256 H 264 H 233 H (75-99) mg/dL Calcium (8.4-10.2) mg/dL 08/31/16 08/31/16 08/31/16 Range/Units 00:53 02:30 04:35 RBC (3.80-5.40) m/uL Hgb (11.4-16.0) gm/dL Hct (34.0-46.0) % Lymphocytes # (1.0-4.8) k/uL Sodium (137-145) mmol/L Glucose (74-99) mg/dL POC Glucose (mg/dL) 256 H 226 H 224 H (75-99) mg/dL Calcium (8.4-10.2) mg/dL 08/31/16 08/31/16 08/31/16 Range/Units 06:09 06:09 06:28 RBC 3.43 L (3.80-5.40) m/uL Hgb 10.0 L (11.4-16.0) gm/dL Hct 31.6 L (34.0-46.0) % Lymphocytes # 0.5 L (1.0-4.8) k/uL Sodium 134 L (137-145) mmol/L Glucose 215 H (74-99) mg/dL POC Glucose (mg/dL) 216 H (75-99) mg/dL Calcium 7.5 L (8.4-10.2) mg/dL 08/31/16 Range/Units 08:26 RBC (3.80-5.40) m/uL Hgb (11.4-16.0) gm/dL Hct (34.0-46.0) % Lymphocytes # (1.0-4.8) k/uL Sodium (137-145) mmol/L Glucose (74-99) mg/dL POC Glucose (mg/dL) 198 H (75-99) mg/dL Calcium (8.4-10.2) mg/dL Assessment and Plan Plan: 1 acute pneumoperitoneum attributed to a perforated diverticulitis. The patient had a sigmoid resection with Maloney's pouch and diverting colostomy. She is hemodynamically stable. 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 Less likely is the possibility of a pneumonia. Chest x-ray seems to be improving and there is better aeration of the right lung. 3 shortness of breath secondary to above 4 preserved LV function with moderate degree of concentric left Hypertrophy/ hypertensive heart disease based on echocardiogram 5 diabetes mellitus 6 obesity 7 osteoarthritis Recommendation: Continue present treatment plan as per internal medicine and as per surgery, we'll continue to follow. Colostomy issues and surgical wound issues are addressed by surgery on the case. Time with Patient: Less than 30
[2016-08-31 14:02] LABS: Glucose,Whole Blood 238 mg/dL (75-99)
[2016-08-31 15:41] LABS: Glucose,Whole Blood 275 mg/dL (75-99)
[2016-08-31 18:00] LABS: Glucose,Whole Blood 173 mg/dL (75-99)
[2016-08-31 19:51] LABS: Glucose,Whole Blood 189 mg/dL (75-99)
[2016-08-31] MEDS: LEVOFLOXACIN 750MG-D5W PMX 750 MG in DEXTROSE/WATER 1 150ML.BAG IVPB SCH (20:58)
[2016-08-31 21:58] LABS: Glucose,Whole Blood 231 mg/dL (75-99)
[2016-08-31] MEDS: LORazepam 2 MG/ML SYRINGE IV PRN (22:53)
[2016-09-01 00:23] LABS: Glucose,Whole Blood 222 mg/dL (75-99)
[2016-09-01] MEDS: METOPROLOL TARTRATE 5 MG/5 ML VIAL IVP SCH ×2 (00:56→06:05)
[2016-09-01] MEDS: PIPERACILLIN-TAZOBACTAM 3.375 GM in DEXTROSE/WATER 1 50ML.BAG IVPB SCH (00:56)
[2016-09-01 01:51] LABS: Glucose,Whole Blood 215 mg/dL (75-99)
[2016-09-01 04:17] LABS: Glucose,Whole Blood 217 mg/dL (75-99)
[2016-09-01] MEDS: ABREVA TOPICAL SCH ×4 (05:04→22:35)
[2016-09-01] MEDS: MVI, ADULT NO.4 WITH VIT K 10 ML, TRACE (CONC-1ML/DOSE) 1 ML, SODIUM CHLORIDE 4MEQ/ML V... IV SCH ×4 (05:16)
[2016-09-01 06:04] LABS: Glucose,Whole Blood 189 mg/dL (75-99)
[2016-09-01 06:24] LABS: Basophils % (A) 0 %; CHCM 31.9; Eosinophils % (A) 0 %; HCT 29.2 % (34.0-46.0); HDW 3.05; HGB 9.5 gm/dL (11.4-16.0); Hypochromasia Slight; Luc # (Auto) 0.18; Luc % (Auto) 2; Lymphocytes # (A) 0.7 k/uL (1.0-4.8); Lymphocytes % (A) 8 %; MCH 29.7 pg (25.0-35.0); MCHC 32.4 g/dL (31.0-37.0); MCV 91.5 fL (80.0-100.0); Mean Platelet Volume 7.8; Monocytes # (A) 0.5 k/uL (0-1.0); Monocytes % (A) 6 %; Neutrophils # (A) 6.8 k/uL (1.3-7.7); Neutrophils % (A) 83 %; RDW 14.2 % (11.5-15.5); WBC 8.2 k/uL (3.8-10.6); WBC (Perox) 8.55
[2016-09-01 06:42] LABS: Anion Gap 6 mmol/L; Blood Urea Nitrogen 11 mg/dL (7-17); Calcium 7.5 mg/dL (8.4-10.2); Carbon Dioxide 25 mmol/L (22-30); Chloride 103 mmol/L (98-107); Glucose 189 mg/dL (74-99); Magnesium 1.9 mg/dL (1.6-2.3); Non-African American GFR(MDRD) >60 (>60 ml/min/1.73 sqM); Phosphorous 3.1 mg/dL (2.5-4.5); Sodium 134 mmol/L (137-145)
[2016-09-01] MEDS: ACYCLOVIR SODIUM 500 MG in SODIUM CHLORIDE 0.9% 100 ML IVPB SCH ×3 (06:43→22:41)
[2016-09-01] MEDS: INSULIN LISPRO (humaLOG) 300 UNIT/3 ML VIAL SQ SCH ×3 (07:01→18:08)
[2016-09-01] MEDS: INSULIN REGULAR 100 UNIT in SODIUM CHLORIDE 0.9% 100 ML IV SCH (08:28)
[2016-09-01] MEDS: HYDROmorphone 1 MG/ML 1 ML SYRINGE IVP PRN ×4 (08:39→22:41)
[2016-09-01] MEDS: ENOXAPARIN 40 MG/0.4 ML SYRINGE SQ SCH (08:39)
[2016-09-01] MEDS: PANTOPRAZOLE 40 MG/10 ML VIAL IV SCH (08:40)
[2016-09-01] MEDS: IPRATROPIUM-ALBUTEROL 3 ML NEB INHALATION SCH ×4 (08:44→20:48)
[2016-09-01] MEDS: FORMOTEROL FUMARATE 20 MCG/2 ML NEBU INHALATION SCH ×2 (08:45→20:49)
[2016-09-01] MEDS: BUDESONIDE 1 MG/2 ML NEBU INHALATION SCH ×2 (08:45→20:49)
[2016-09-01 08:47] LABS: Glucose,Whole Blood 137 mg/dL (75-99)
[2016-09-01] MEDS ORDERED: METOPROLOL SUCCINATE (ER) 25 MG TAB.ER.24H PO SCH (09:00)
[2016-09-01 10:29] LABS: Glucose,Whole Blood 162 mg/dL (75-99)
[2016-09-01] MEDS: MAGNESIUM SULFATE-D5W PMX 1 GM in DEXTROSE/WATER 1 100ML.BAG IVPB SCH ×2 (10:30→12:32)
--- NOTE | 2016-09-01 11:25 | PN ---
DATE OF SERVICE: 08/31/2016 This 75-year-old woman was admitted with sigmoid perforation had multiple medical problems. The patient still has NG tube in situ. The patient is confused. NG-tube has to be removed at this time. Chest x-ray showed significant lesions found on the right side. On exam, alert and oriented x2. Pulse 102, blood pressure is 132/54, respiratory rate 18, temperature 98.6, pulse ox 99% on 2 L. HEENT: Conjunctivae normal. Oral mucosa moist. NECK: No jugular venous distention. No carotid bruit. No lymph node enlargement. CARDIOVASCULAR: S1, S2 muffled. No S3, no S4. RESPIRATORY: Breath sounds diminished in the bases. A few scattered rhonchi and crackles. ABDOMEN: Soft, status post surgery. Legs: No edema. No swelling. CENTRAL NERVOUS SYSTEM: No focal deficits. LABS: WBC 7.5, hemoglobin is 10 and glucose 231. ASSESSMENT: 1. Acute sigmoid perforation status post laparotomy as well as Maged's procedure on NG tube. 2. Chronic obstructive pulmonary disease, acute exacerbation multifactorial, possible right lower lobe pneumonia versus atelectasis with possibly gram-negative present on admission. 3. Mild polycythemia, possibly secondary to dehydration, present on admission. 4. Metabolic encephalopathy, acute multifactorial. 5. Possible right diaphragmatic paralysis, present on admission. 6. On total parenteral nutrition. 7. Increased d-dimer with no evidence of pulmonary embolism. 8. Increased random blood sugar and diabetes mellitus type 2. 9. Hypertension, essential. 10. History of leaky valves. 11. History of hiatal hernia. 12. History of degenerative joint disease. 13. Mild hypocalcemia. 14. History of shingles. 15. History of back surgery, degenerative joint disease. 16. History of cardiac catheterization. 17. History of anxiety. 18. FULL CODE. 19. Urinary retention. RECOMMENDATIONS AND DISCUSSION: In this 75-year-old woman who presented with multiple complex medical issues, we will monitor the patient closely. Continue the current medications, continue symptomatic treatment. Otherwise, at this time, closely follow with surgery and multiple consultants. PT, OT evaluation. Eventual ECF rehab. Prognosis guarded because of multiple complex medical issues. Further recommendations to follow.
[2016-09-01 12:07] LABS: Glucose,Whole Blood 227 mg/dL (75-99)
--- NOTE | 2016-09-01 12:29 | P.PN ---
Subjective Principal diagnosis: Acute pneumoperitoneum secondary to perforated diverticulitis, right hemidiaphragm paralysis We were asked to evaluate this 75-year-old female patient for symptoms of pneumonia. Note that the patient was having some increased cough and congestion and dyspnea for the past 10 days. She was being treated by Keli Vargas NP, and initially she was given a course of amoxicillin followed by a Medrol Dosepak. Her symptoms remain unchanged and the patient was still having the same symptomatology and she was given Levaquin. During this time, the patient reported limited improvement if any and she also developed some herpetic lesions in her upper lips. No chills. No fever. No pleurisy. No chest pain. No trauma to the chest. No falls. No nausea. No vomiting. No diarrhea. No abdominal pain. No change in mental status. Ultimately the patient decided to come in to the hospital for further evaluation. The chest x-rays were done in the hospital showed significant elevation of the right hemidiaphragm which is a new findings compared to the previous chest x-rays. A CAT scan of the chest was also done and this is a CT angios done to rule out pulmonary embolism. The findings showed a patchy opacity within the medial right upper lobe of the lung with peribronchial thickening. However, the major abnormalities that was noted is in the right lower lobe where the right hemidiaphragm is felt to be quite elevated and that it probably some residual consolidation within the right lower lobe area. I do suspect an underlying diaphragmatic weakness/paralysis that has developed recently knowing that this abnormality was not present on previous x-rays that were done earlier on the same patient. For now, the patient has no other complaints. Her white cell count is at 10.4. She was started on IV Zosyn. She was started on bronchodilators. She was started on systemic steroids. She was started on Valtrex regarding her herpetic labial lesions. Pulmonate consultation was requested for further advice. Influenza A and B screen was negative. On 08/23/2016 the patient is being seen in follow-up. Note that on yesterday's evaluation of suspected a right hemidiaphragmatic paralysis and we sent this patient for a sniff test to confirm the findings. During her sniff test, the patient was found to have bilateral air under the diaphragms and this was consistent with pneumoperitoneum. Immediately the patient was evaluated and the patient seems to have developing increased abdominal pain and tenderness over the past 6-12 hours. Based on that, a stat consultation for surgery was placed and the patient was evaluated and seen by Dr. Siu and she'll be taken to the operating room. There is a suspicion that the patient has perforated day gastric ulcer or a perforated diverticulum. She will need an expiratory laparoscopy with possible open laparotomy. The findings of the x-ray were discussed with the patient length and she is aware of this. On 08/24/2016 the patient is being seen in follow-up. The patient is doing well. As mentioned earlier, the patient was taken to the operating room yesterday for pneumoperitoneum. She was found to have perforated diverticulitis. The surgery was done by Dr. Siu. The patient underwent diagnostic laparoscopy and following that she underwent sigmoid resection with Maloney's pouch and diverting colostomy for perforated diverticulitis. YUVAL drains were placed 2 and following that the patient was extubated and she was brought into the intensive care unit. Overnight the patient had some low urine output and she was given a bolus of 1 L of normal saline and currently she is on a maintenance of 1 25 mL an hour. She has a good urine output. No nausea. No vomiting. NG tube in place. The output from the NG tube is been around 500 mL since she arrived from the operating room. Colostomy site is viable and nonfunctional yet. No abdominal pain. No swelling lower extremities. No respiratory distress. Chest x-ray showing significant elevation of the right hemidiaphragm consistent with diaphragmatic paralysis. NG tube is in a good location. The patient remains on IV Zosyn. The white cell count is not elevated. Patient was reevaluated on 08/25/2016, seems to be doing very well, x-ray continues to show significant elevation of the right hemidiaphragm, patient tolerated surgery quite well, and she is scheduled to have a PICC line placement today. Patient will receive TPN, and I would likely keep her in the ICU today or possibly transfer later today to a regular medical floor. Remains on antibiotics for her abdominal sepsis. Presently she is in no form of respiratory distress. Patient was reevaluated today on 08/26/2016, continues to do well, were still waiting for a bed to be available on a regular medical floor to transfer the patient to a regular medical floor. No major issues overnight. Patient had a PICC line placed uneventfully. And TPN was started. Labs were reviewed, she has a relatively normal basic metabolic profile and normal CBC except for hemoglobin of 10.8. Patient was reevaluated today on 08/27/2016, continues to have nasogastric tube in place, no output from the colostomy at this point so far since surgery, patient is a bit tachycardic in spite of beta blockers given IV push by cardiology. Blood pressures seems to be stable. Patient has been intermittently anxious requiring sedation. No shortness of breath, no cough, no wheezing. Chest x-ray is showing definite improvement in her elevation of her right hemidiaphragm. And no evidence of infiltrates or edema. Patient was reevaluated today on 08/28/2016, doing relatively well overall, hemodynamically stable, continues to have a nasogastric tube in place, continues to have no output in the colostomy bag, heart rate seems to be better controlled, blood pressure remains stable,labs were reviewed the seem to be unremarkable including a basic metabolic profile and CBC. Hence I plan to transfer the patient out of the ICU to a medical surgical floor. The patient is seen again today 08/29/2016 on the selective care unit. She is awake and alert in no acute distress. She is still he nothing by mouth with a nasogastric tube in place. She was receiving TPN for nutrition via PICC line. Scant output in the colostomy bag. She denies any worsening shortness of breath , cough or congestion. Her pain is well controlled. Her hemoglobin is stable at 11.1. No leukocytosis. Reevaluated today on 08/30/2016, she seems to be more awake today, in no form of respiratory distress, small amount of serosanguineous fluid noted in the colostomy bag patient denies any worsening shortness of breath, pain is fairly well controlled, labs are all reviewed. Reevaluated today on 08/31/2016, doing well from the pulmonary perspective no cough no wheezing no shortness of breath. Diminished nasogastric output noted, colostomy drainage is basically nil, minimal serosanguineous drainage noted no stool noted in the colostomy bag and that is being addressed by general surgery on the case. Also aware of that minimal drainage noted between the santosh of the surgical wound. The patient is seen again today 09/01/2016 on the selective care unit. She is awake and alert in no acute distress. She is sitting up in the chair at the bedside. She denies any worsening shortness of breath, cough or congestion. She has been afebrile. No leukocytosis. Hemoglobin stable. She is maintaining O2 saturations in the low 90s on room air. She is tolerating a clear liquid diet now. Objective - Vital Signs Vital signs: Vital Signs Temp 98.1 F 09/01/16 08:30 Pulse 102 H 09/01/16 09:05 Resp 16 09/01/16 08:56 BP 126/59 09/01/16 08:30 Pulse Ox 93 L 09/01/16 08:30 Intake & Output 08/31/16 09/01/16 09/01/16 18:59 06:59 18:59 Intake Total 3722.463 7855.845 2.603 Output Total 570 1400 350 Balance 715.211 -105.155 -347.397 Weight 76 kg 76 kg Intake: Intake, IV Titration 1105.142 3568.845 2.603 Amount Acyclovir Sodium 500 mg 100 In Sodium Chloride 0.9% 100 ml @ 100 mls/hr IVPB Q8H [facility] Rx#:[id number] Insulin Regular 100 unit 38.544 39.845 2.603 In Sodium Chloride 0.9% 100 ml @ Titrate IV .Q0M [facility] Rx#:[id number] Mvi, Adult No.4 with Vit 50 K 10 ml Trace (Conc-1Ml/ Dose) 1 ml In Amino Acid 5%-D25w+Lytes*E* 1,000 ml @ 50 mls/hr IV .[id number] [facility] Rx#:[id number] Mvi, Adult No.4 with Vit 183.674 6929 K 10 ml Trace (Conc-1Ml/ Dose) 1 ml Sodium Chloride 4Meq/ml Vial 16 meq In Amino Acid 5%-D25w +Lytes*E* 1,000 ml @ 50 mls/hr IV .[id number] [facility] Rx #:[id number] Piperacillin-Tazobactam 3 50 .375 gm In Dextrose/Water 1 50ml.bag @ 12.5 mls/hr IVPB Q8HR [facility] Rx#: [id number] Oral 50 240 0 Output: Drainage 70 50 Right Lower Abdomen 20 30 Right Upper Abdomen 50 20 Urine 500 1400 300 Straight 450 Stool 0 0 0 Other: Voiding Method Bedpan Bedpan Bedpan # Voids 1 - Exam GENERAL EXAM: Alert, active, comfortable in no apparent distress. HEAD: Normocephalic. EYES: Normal reaction of pupils, equal size. NOSE: Clear with pink turbinates. THROAT: No erythema or exudates. NECK: No masses, no JVD. CHEST: No chest wall deformity. LUNGS: Equal air entry with no crackles, wheeze, rhonchi or dullness. CVS: S1 and S2 normal with no audible murmurs, regular rhythm. ABDOMEN: Colostomy bag in place. Soft. Extremities: There is trace peripheral edema. No clubbing, no cyanosis. Peripheral pulses are intact. - Labs CBC & Chem 7: 09/01/16 05:41 09/01/16 05:41 Labs: Abnormal Lab Results - Last 24 Hours (Table) 08/31/16 08/31/16 08/31/16 Range/Units 13:41 15:28 17:47 RBC (3.80-5.40) m/uL Hgb (11.4-16.0) gm/dL Hct (34.0-46.0) % Lymphocytes # (1.0-4.8) k/uL Sodium (137-145) mmol/L Glucose (74-99) mg/dL POC Glucose (mg/dL) 238 H 275 H 173 H (75-99) mg/dL Calcium (8.4-10.2) mg/dL 08/31/16 08/31/16 09/01/16 Range/Units 19:44 21:46 00:18 RBC (3.80-5.40) m/uL Hgb (11.4-16.0) gm/dL Hct (34.0-46.0) % Lymphocytes # (1.0-4.8) k/uL Sodium (137-145) mmol/L Glucose (74-99) mg/dL POC Glucose (mg/dL) 189 H 231 H 222 H (75-99) mg/dL Calcium (8.4-10.2) mg/dL 09/01/16 09/01/16 09/01/16 Range/Units 01:49 04:05 05:41 RBC (3.80-5.40) m/uL Hgb (11.4-16.0) gm/dL Hct (34.0-46.0) % Lymphocytes # (1.0-4.8) k/uL Sodium 134 L (137-145) mmol/L Glucose 189 H (74-99) mg/dL POC Glucose (mg/dL) 215 H 217 H (75-99) mg/dL Calcium 7.5 L (8.4-10.2) mg/dL 09/01/16 09/01/16 09/01/16 Range/Units 05:41 06:00 08:27 RBC 3.20 L (3.80-5.40) m/uL Hgb 9.5 L (11.4-16.0) gm/dL Hct 29.2 L (34.0-46.0) % Lymphocytes # 0.7 L (1.0-4.8) k/uL Sodium (137-145) mmol/L Glucose (74-99) mg/dL POC Glucose (mg/dL) 189 H 137 H (75-99) mg/dL Calcium (8.4-10.2) mg/dL 09/01/16 09/01/16 Range/Units 10:12 11:55 RBC (3.80-5.40) m/uL Hgb (11.4-16.0) gm/dL Hct (34.0-46.0) % Lymphocytes # (1.0-4.8) k/uL Sodium (137-145) mmol/L Glucose (74-99) mg/dL POC Glucose (mg/dL) 162 H 227 H (75-99) mg/dL Calcium (8.4-10.2) mg/dL Assessment and Plan Plan: 1 acute pneumoperitoneum attributed to a perforated diverticulitis. The patient had a sigmoid resection with Maloney's pouch and diverting colostomy. She is hemodynamically stable. 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 Less likely is the possibility of a pneumonia. Chest x-ray seems to be improving and there is better aeration of the right lung. 3 shortness of breath secondary to above 4 preserved LV function with moderate degree of concentric left Hypertrophy/ hypertensive heart disease based on echocardiogram 5 diabetes mellitus 6 obesity 7 osteoarthritis Plan: The patient was seen and evaluated by Dr. Wong. She remains stable from the pulmonary standpoint. We will encourage increased use of the incentive spirometer and cough and deep breathing exercises. We'll increase her activity as tolerated. Diet per surgical services. We will see the patient on as- needed basis.
[2016-09-01 14:13] LABS: Glucose,Whole Blood 239 mg/dL (75-99)
--- NOTE | 2016-09-01 15:58 | P.PN ---
Subjective Principal diagnosis: Perforated diverticulitis, status post Maged's procedure the patient seen on rounds. The nasogastric tube was removed yesterday. She's tolerating clear liquid diet. She was inadvertently given a soft diet for lunch including chicken and green beans which she tolerated. No nausea, vomiting, heartburn. Objective - Vital Signs Vital signs: Vital Signs Temp 98.1 F 09/01/16 08:30 Pulse 100 09/01/16 13:05 Resp 16 09/01/16 13:05 BP 117/60 09/01/16 13:05 Pulse Ox 95 09/01/16 13:05 Intake & Output 08/31/16 09/01/16 09/01/16 18:59 06:59 18:59 Intake Total 8721.801 0076.845 13.445 Output Total 570 1400 350 Balance 715.211 -105.155 -336.555 Weight 76 kg 76 kg Intake: Intake, IV Titration 0702.277 0557.845 13.445 Amount Acyclovir Sodium 500 mg 100 In Sodium Chloride 0.9% 100 ml @ 100 mls/hr IVPB Q8H [facility] Rx#:[id number] Insulin Regular 100 unit 38.544 39.845 13.445 In Sodium Chloride 0.9% 100 ml @ Titrate IV .Q0M [facility] Rx#:[id number] Mvi, Adult No.4 with Vit 50 K 10 ml Trace (Conc-1Ml/ Dose) 1 ml In Amino Acid 5%-D25w+Lytes*E* 1,000 ml @ 50 mls/hr IV .[id number] [facility] Rx#:[id number] Mvi, Adult No.4 with Vit 345.130 8622 K 10 ml Trace (Conc-1Ml/ Dose) 1 ml Sodium Chloride 4Meq/ml Vial 16 meq In Amino Acid 5%-D25w +Lytes*E* 1,000 ml @ 50 mls/hr IV .[id number] [facility] Rx #:[id number] Piperacillin-Tazobactam 3 50 .375 gm In Dextrose/Water 1 50ml.bag @ 12.5 mls/hr IVPB Q8HR [facility] Rx#: [id number] Oral 50 240 0 Output: Drainage 70 50 Right Lower Abdomen 20 30 Right Upper Abdomen 50 20 Urine 500 1400 300 Straight 450 Stool 0 0 0 Other: Voiding Method Bedpan Bedpan Bedpan # Voids 1 - Constitutional General appearance: Present: cooperative, no acute distress - Gastrointestinal General gastrointestinal: Present: normal bowel sounds, soft Localized gastrointestinal: surgical scar: midline (no evidence of cellulitis. Packing is in place. Ostomy is pink and viable. No significant output yet.) - Labs CBC & Chem 7: 09/01/16 05:41 09/01/16 05:41 Labs: Abnormal Lab Results - Last 24 Hours (Table) 08/31/16 08/31/16 08/31/16 Range/Units 17:47 19:44 21:46 RBC (3.80-5.40) m/uL Hgb (11.4-16.0) gm/dL Hct (34.0-46.0) % Lymphocytes # (1.0-4.8) k/uL Sodium (137-145) mmol/L Glucose (74-99) mg/dL POC Glucose (mg/dL) 173 H 189 H 231 H (75-99) mg/dL Calcium (8.4-10.2) mg/dL 09/01/16 09/01/16 09/01/16 Range/Units 00:18 01:49 04:05 RBC (3.80-5.40) m/uL Hgb (11.4-16.0) gm/dL Hct (34.0-46.0) % Lymphocytes # (1.0-4.8) k/uL Sodium (137-145) mmol/L Glucose (74-99) mg/dL POC Glucose (mg/dL) 222 H 215 H 217 H (75-99) mg/dL Calcium (8.4-10.2) mg/dL 09/01/16 09/01/16 09/01/16 Range/Units 05:41 05:41 06:00 RBC 3.20 L (3.80-5.40) m/uL Hgb 9.5 L (11.4-16.0) gm/dL Hct 29.2 L (34.0-46.0) % Lymphocytes # 0.7 L (1.0-4.8) k/uL Sodium 134 L (137-145) mmol/L Glucose 189 H (74-99) mg/dL POC Glucose (mg/dL) 189 H (75-99) mg/dL Calcium 7.5 L (8.4-10.2) mg/dL 09/01/16 09/01/16 09/01/16 Range/Units 08:27 10:12 11:55 RBC (3.80-5.40) m/uL Hgb (11.4-16.0) gm/dL Hct (34.0-46.0) % Lymphocytes # (1.0-4.8) k/uL Sodium (137-145) mmol/L Glucose (74-99) mg/dL POC Glucose (mg/dL) 137 H 162 H 227 H (75-99) mg/dL Calcium (8.4-10.2) mg/dL 09/01/16 Range/Units 13:53 RBC (3.80-5.40) m/uL Hgb (11.4-16.0) gm/dL Hct (34.0-46.0) % Lymphocytes # (1.0-4.8) k/uL Sodium (137-145) mmol/L Glucose (74-99) mg/dL POC Glucose (mg/dL) 239 H (75-99) mg/dL Calcium (8.4-10.2) mg/dL Assessment and Plan (1) Diaphragmatic paralysis Status: Acute (2) Perforation of sigmoid colon due to diverticulitis Status: Acute Plan: we will slowly advance her diet. She is being evaluated for short-term rehab. Progressing slowly.
[2016-09-01 16:25] LABS: Glucose,Whole Blood 156 mg/dL (75-99)
[2016-09-01] MEDS: FAT EMULSION 20% 250 ML in EMPTY BAG 1 BAG IV SCH (18:08)
[2016-09-01 18:27] LABS: Glucose,Whole Blood 171 mg/dL (75-99)
[2016-09-01] MEDS ORDERED: LEVOFLOXACIN 750 MG TAB PO SCH (20:00)
[2016-09-01 20:16] LABS: Glucose,Whole Blood 194 mg/dL (75-99)
[2016-09-01 21:57] LABS: Glucose,Whole Blood 209 mg/dL (75-99)
[2016-09-01] MEDS: LORazepam 2 MG/ML SYRINGE IV PRN (22:41)
--- NOTE | 2016-09-01 22:56 | PN ---
DATE OF SERVICE: 09/01/2016 This 75-year-old woman was admitted with acute sigmoid perforation. She also has multiple other medical problems, including COPD, history of metabolic encephalopathy. The patient is being closely monitored. Dr. Siu and Dr. Wong are following the patient closely. The NG tube has been removed. Patient is mildly confused. Past medical history reviewed. REVIEW OF SYSTEMS: CARDIOVASCULAR: No angina, palpitations. RESPIRATORY SYSTEM: As mentioned earlier. GI: As mentioned earlier. : No dysuria. NERVOUS SYSTEM: No numbness. Generalized weakness. Current medications are reviewed and include: 1. Acyclovir 500 mg q.8. 2. Albuterol Atrovent. 3. DuoNeb q.i.d. 4. Pulmicort 1 mg b.i.d. 5. Lovenox 40 mg subcutaneously daily. 6. TPN. 7. Perforomist. 8. Haldol 2 mg IV q.2 p.r.n. 9. Dilaudid. 10. Levaquin. 11. Ativan. 12. Reglan. 13. Toprol XL 25 mg daily. 14. Replacement protocols. 15. Narcan. 16. Zofran 4 mg q.8 p.r.n. 17. Protonix 40 mg IV daily. 18. P.r.n. medications. PHYSICAL EXAMINATION: Patient is alert and oriented x3. Pulse 110, blood pressure 124/60, respiratory rate 16, temperature normal, pulse ox 92% on room air. HEENT: Conjunctivae normal. Oral mucosa moist. NECK: No jugular venous distention. No carotid bruit. No lymph node enlargement. CARDIOVASCULAR SYSTEM: S1 normal. S2 normal. No S3. No S4. RESPIRATORY SYSTEM: Breath sounds diminished at the bases. A few scattered rhonchi and crackles. ABDOMEN: Soft. Status post surgery. No mass palpable. LEGS: No edema. No swelling. NERVOUS SYSTEM: Higher functions as mentioned earlier. Moves all 4 limbs. No focal motor or sensory deficit. LYMPHATICS: No lymph node palpable in neck, axillae or groin. SKIN: No ulcer, rash, bleeding. LABS: Accu-Cheks 210, 227, 239, 156. Hemoglobin is 9.5. Sodium is 134. ASSESSMENT: 1. Acute sigmoid perforation, status post laparotomy as well as Maged's procedure and NG tube. 2. Chronic obstructive pulmonary disease, acute exacerbation, multifactorial, with possible right lower lobe pneumonia versus atelectasis, possibly Gram-negative, present on admission. 3. Mild polycythemia, possibly secondary to dehydration, present on admission. 4. Metabolic encephalopathy, acute, multifactorial. 5. Possible right diaphragmatic paralysis, present on admission. 6. On total parenteral nutrition. 7. Increased D-dimer with no evidence of pulmonary embolism. 8. Increased random blood sugar and diabetes mellitus, type 2. 9. Hypertension, essential. 10. History of leaky valves. 11. History of hiatal hernia. 12. History of degenerative joint disease. 13. Mild hypocalcemia. 14. History of shingles. 15. History of back surgery and degenerative joint disease. 16. History of cardiac catheterization. 17. History of anxiety. 18. Urinary retention. 19. FULL CODE. RECOMMENDATIONS AND DISCUSSION: I recommend to continue with the current medications, continue with the monitoring, symptomatic treatment. Otherwise, at this time I would recommend monitoring electrolytes closely. TPN. The patient has significant sinus tachycardia. We will monitor on telemetry for 24 more hours. Prognosis guarded. Further recommendations to follow.
[2016-09-02 00:10] LABS: Glucose,Whole Blood 221 mg/dL (75-99)
[2016-09-02] MEDS: ABREVA TOPICAL SCH ×4 (00:41→16:56)
[2016-09-02] MEDS: HALOPERIDOL LACTATE 5 MG/ML 1 ML VIAL IVP PRN (00:42)
[2016-09-02] MEDS: HYDROmorphone 1 MG/ML 1 ML SYRINGE IVP PRN ×5 (01:35→23:58)
[2016-09-02 01:39] LABS: Appearance,Urine Clear (Clear); Bilirubin,Urine Negative (Negative); Glucose,Urine (UA) 1+ (Negative); Ketones,Urine Negative (Negative); Leukocyte Esterase,Urine Negative (Negative); Nitrite,Urine Negative (Negative); Protein,Urine Negative (Negative); Specific Gravity,Urine 1.006 (1.001-1.035); UA Billing (MACRO vs. MICRO) CHEM; Urobilinogen,Urine <2.0 mg/dL (<2.0)
[2016-09-02 02:19] LABS: Glucose,Whole Blood 247 mg/dL (75-99)
[2016-09-02] MEDS: MVI, ADULT NO.4 WITH VIT K 10 ML, TRACE (CONC-1ML/DOSE) 1 ML, SODIUM CHLORIDE 4MEQ/ML V... IV SCH ×8 (02:26→22:25)
[2016-09-02 03:59] LABS: Glucose,Whole Blood 227 mg/dL (75-99)
[2016-09-02 05:59] LABS: Glucose,Whole Blood 202 mg/dL (75-99)
[2016-09-02 06:30] LABS: Anion Gap 5 mmol/L; Blood Urea Nitrogen 11 mg/dL (7-17); Calcium 7.3 mg/dL (8.4-10.2); Carbon Dioxide 27 mmol/L (22-30); Chloride 101 mmol/L (98-107); Glucose 221 mg/dL (74-99); Magnesium 2.1 mg/dL (1.6-2.3); Non-African American GFR(MDRD) >60 (>60 ml/min/1.73 sqM); Phosphorous 3.2 mg/dL (2.5-4.5); Potassium 4.3 mmol/L (3.5-5.1); Sodium 133 mmol/L (137-145); Triglycerides 64 mg/dL (<150)
[2016-09-02] MEDS: ACYCLOVIR SODIUM 500 MG in SODIUM CHLORIDE 0.9% 100 ML IVPB SCH ×3 (07:04→23:11)
[2016-09-02] MEDS: INSULIN LISPRO (humaLOG) 300 UNIT/3 ML VIAL SQ SCH ×5 (07:20→21:07)
[2016-09-02 07:43] LABS: Ionized Calcium 4.6 mg/dL (4.5-5.3)
[2016-09-02] MEDS: IPRATROPIUM-ALBUTEROL 3 ML NEB INHALATION SCH ×4 (08:22→19:20)
[2016-09-02] MEDS: BUDESONIDE 1 MG/2 ML NEBU INHALATION SCH ×2 (08:22→19:20)
[2016-09-02] MEDS: FORMOTEROL FUMARATE 20 MCG/2 ML NEBU INHALATION SCH ×2 (08:22→19:20)
[2016-09-02 08:29] LABS: Glucose,Whole Blood 167 mg/dL (75-99)
[2016-09-02] MEDS: PANTOPRAZOLE 40 MG/10 ML VIAL IV SCH (09:49)
[2016-09-02] MEDS: ENOXAPARIN 40 MG/0.4 ML SYRINGE SQ SCH (09:49)
[2016-09-02] MEDS ORDERED: METOPROLOL SUCCINATE (ER) 25 MG TAB.ER.24H PO SCH (10:00)
[2016-09-02 10:04] LABS: Glucose,Whole Blood 157 mg/dL (75-99)
[2016-09-02 12:13] LABS: Glucose,Whole Blood 217 mg/dL (75-99)
[2016-09-02] MEDS ORDERED: METOPROLOL SUCCINATE (ER) 25 MG TAB.ER.24H PO STA (14:11)
[2016-09-02 16:42] LABS: Glucose,Whole Blood 259 mg/dL (75-99)
--- NOTE | 2016-09-02 17:44 | PN ---
Patient is a 75-year-old admitted with acute sigmoid perforation. Patient's postoperative course was complicated by dehiscence of the abdominal surgical wound. Patient at one point of time was also treated for pneumonia. At this point of time patient is not on antibiotics. Patient has metabolic encephalopathy. Patient has a prolonged hospitalization. Patient is tachycardic at this point of time. Etiology is unknown. I will obtain a TSH. My suspicion is low for pulmonary embolism. Metoprolol dose was increased by Cardiology. Patient today is frustrated with everything going on with her. REVIEW OF SYSTEMS: CARDIOVASCULAR: No chest pain, no orthopnea, no PND, no palpitations. PULMONARY: Denied any shortness of breath. No cough or hemoptysis. GASTROINTESTINAL: No diarrhea, nausea or vomiting. No abdominal pain. Normoactive bowel sounds. NEUROLOGIC: No headaches, no weakness, no numbness. Medications were reviewed. PHYSICAL EXAMINATION: VITAL SIGNS: Temperature 99.3, pulse of 126, respiratory rate of 16. Blood pressure is 120/56. Saturating at 96% on room air. GENERAL: The patient is alert and oriented x3, not in any acute distress. Well developed, well nourished. HEENT: Pupils are round and equally reacting to light. EOMI. No scleral icterus. No conjunctival pallor. Normocephalic, atraumatic. No pharyngeal erythema. No thyromegaly. CARDIOVASCULAR: S1, S2 present. Patient is tachycardic. Appears to be sinus tachycardia. No murmurs, rubs or gallops are appreciated. PULMONARY: Chest is clear to auscultation, no wheezing or crackles. ABDOMEN: Patient has a colostomy bag mostly filled with gas and a little bit of liquid. Patient is on TPN, which is being weaned off. Patient also has fairly good bowel sounds. Patient has 2 surgical drains; not draining much today. MUSCULOSKELETAL: No joint swelling or deformity. EXTREMITIES: No cyanosis, clubbing, or pedal edema. NEUROLOGICAL: Gross neurological examination did not reveal any focal deficits. SKIN: No rashes. LABORATORY DATA: CBC, CMP are abnormal for low sodium of 133. Patient is on TPN at present which is being tapered down, which will be stopped today. ASSESSMENT AND PLAN: 1. Acute sigmoid perforation, status post laparotomy and Maged's pouch. 2. Postoperative course complicated by dehiscence of the surgical site area, which is re-sutured. 3. Chronic obstructive pulmonary disease without any acute exacerbation. 4. Right-sided diaphragmatic paralysis. 5. Hypertension. 6. Degenerative joint disease. 7. Tachycardia, unknown etiology. Will obtain a TSH, as mentioned above. PLAN: Discontinue TPN today. Patient is not on antibiotics. I do not see a reason for antibiotics. Patient at one point of time was on antibiotics for intraabdominal process and for pneumonia. Patient will be transferred out of [facility]. Patient's metoprolol dose was increased to 50 daily, sustained release. Patient is not receiving any IV fluids. Patient's pleural effusion is a bit worsened, because of which I will obtain a chest x-ray. Patient has normal ejection fraction. Pulmonology and Surgical Services are following the patient as well.
[2016-09-02] MEDS: INSULIN GLARGINE 100 UNIT/ML 10 ML VIAL SQ SCH (21:05)
[2016-09-02 21:22] LABS: Glucose,Whole Blood 238 mg/dL (75-99)
[2016-09-02] MEDS: LORazepam 2 MG/ML SYRINGE IV PRN (22:21)
[2016-09-03] MEDS: IPRATROPIUM-ALBUTEROL 3 ML NEB INHALATION SCH ×4 (07:06→19:35)
[2016-09-03] MEDS: FORMOTEROL FUMARATE 20 MCG/2 ML NEBU INHALATION SCH ×2 (07:06→19:35)
[2016-09-03] MEDS: BUDESONIDE 1 MG/2 ML NEBU INHALATION SCH ×2 (07:06→19:35)
[2016-09-03 07:32] LABS: Glucose,Whole Blood 150 mg/dL (75-99)
[2016-09-03] MEDS: ENOXAPARIN 40 MG/0.4 ML SYRINGE SQ SCH (07:42)
[2016-09-03] MEDS: ABREVA TOPICAL SCH ×4 (07:42→09:43)
[2016-09-03] MEDS: ACYCLOVIR SODIUM 500 MG in SODIUM CHLORIDE 0.9% 100 ML IVPB SCH ×3 (07:43→23:42)
[2016-09-03] MEDS: PANTOPRAZOLE 40 MG/10 ML VIAL IV SCH (07:43)
[2016-09-03] MEDS: INSULIN LISPRO (humaLOG) 300 UNIT/3 ML VIAL SQ SCH ×7 (07:43→21:28)
[2016-09-03] MEDS: HYDROmorphone 1 MG/ML 1 ML SYRINGE IVP PRN ×3 (08:00→18:57)
[2016-09-03] MEDS ORDERED: BISACODYL 10 MG SUPP RECTAL STA (08:51)
[2016-09-03 08:53] LABS: CH 29.3; CHCM 32.4; HCT 31.2 % (34.0-46.0); HDW 3.08; HGB 10.1 gm/dL (11.4-16.0); Hypochromasia Slight; MCH 29.6 pg (25.0-35.0); MCHC 32.5 g/dL (31.0-37.0); Mean Platelet Volume 8.6; RBC 3.42 m/uL (3.80-5.40); RDW 14.4 % (11.5-15.5); WBC 10.5 k/uL (3.8-10.6)
[2016-09-03] MEDS ORDERED: METOPROLOL SUCCINATE (ER) 50 MG TAB.ER.24H PO SCH (09:00)
[2016-09-03 09:25] LABS: Anion Gap 8 mmol/L; Blood Urea Nitrogen 10 mg/dL (7-17); Calcium 7.8 mg/dL (8.4-10.2); Carbon Dioxide 25 mmol/L (22-30); Chloride 101 mmol/L (98-107); Glucose 159 mg/dL (74-99); Magnesium 1.9 mg/dL (1.6-2.3); Non-African American GFR(MDRD) >60 (>60 ml/min/1.73 sqM); Phosphorous 3.1 mg/dL (2.5-4.5); Potassium 4.4 mmol/L (3.5-5.1); Sodium 134 mmol/L (137-145)
--- NOTE | 2016-09-03 12:06 | XR ---
EXAMINATION TYPE: XR chest 1V DATE OF EXAM: 09/03/2016 8:56 AM HISTORY: Shortness of breath. COMPARISON: 08/30/2016 TECHNIQUE: Single view of the chest is submitted. FINDINGS: NG tube has been removed. The left-sided PICC line is in place. Demonstrated are scattered senescent parenchymal change. Stable effusion right lung base as well as associated chronic elevation right hemidiaphragm. The heart is stable. Hilar and mediastinal structures are within normal limits. Degenerative changes are seen of the dorsal spine. IMPRESSION: 1. Stable chest.
[2016-09-03 12:13] LABS: Glucose,Whole Blood 119 mg/dL (75-99)
--- NOTE | 2016-09-03 14:01 | P.PN ---
Subjective Principal diagnosis: Perforated diverticulitis, status post Maged's procedure The patient is seen on rounds. She is tolerating a diet. No nausea or vomiting. No significant output from the ostomy. Objective - Vital Signs Vital signs: Vital Signs Temp 99.4 F 09/03/16 07:00 Pulse 92 09/03/16 11:40 Resp 20 09/03/16 08:00 BP 125/58 09/03/16 07:00 Pulse Ox 95 09/03/16 07:05 Intake & Output 09/02/16 09/03/16 09/03/16 18:59 06:59 18:59 Intake Total 19.354 300 480 Output Total 135 955 Balance -115.646 -655 480 Intake: Intake, IV Titration 19.354 Amount Insulin Regular 100 unit 19.354 In Sodium Chloride 0.9% 100 ml @ Titrate IV .Q0M [facility] Rx#:[id number] Oral 0 300 480 Output: Drainage 135 155 Right Lower Abdomen 100 130 Right Upper Abdomen 35 25 Urine 800 Stool 0 Other: Voiding Method Bedpan Bedside Commode # Voids 2 - Constitutional General appearance: Present: cooperative, no acute distress - Gastrointestinal General gastrointestinal: Present: normal bowel sounds, soft Localized gastrointestinal: surgical scar: midline (Packing is in place.) - Labs CBC & Chem 7: 09/03/16 08:04 09/03/16 08:04 Labs: Abnormal Lab Results - Last 24 Hours (Table) 09/02/16 09/02/16 09/03/16 Range/Units 16:40 21:03 07:01 RBC (3.80-5.40) m/uL Hgb (11.4-16.0) gm/dL Hct (34.0-46.0) % Sodium (137-145) mmol/L Glucose (74-99) mg/dL POC Glucose (mg/dL) 259 H 238 H 150 H (75-99) mg/dL Calcium (8.4-10.2) mg/dL 09/03/16 09/03/16 09/03/16 Range/Units 08:04 08:04 12:06 RBC 3.42 L (3.80-5.40) m/uL Hgb 10.1 L (11.4-16.0) gm/dL Hct 31.2 L (34.0-46.0) % Sodium 134 L (137-145) mmol/L Glucose 159 H (74-99) mg/dL POC Glucose (mg/dL) 119 H (75-99) mg/dL Calcium 7.8 L (8.4-10.2) mg/dL Assessment and Plan (1) Diaphragmatic paralysis Status: Acute (2) Perforation of sigmoid colon due to diverticulitis Status: Acute Plan: TPN has been weaned. She is getting local wound care to the open wound. We'll give her a suppository to stimulate: Function. Resting slowly. Anticipate she should be ready for discharge by or Thursday.
[2016-09-03] MEDS ORDERED: METOPROLOL SUCCINATE (ER) 25 MG TAB.ER.24H PO ONE (14:45)
[2016-09-03] MEDS ORDERED: RX INFO: IV CONTRAST WAS GIVEN 1 EACH MISC MISCELLANE PRN (16:26)
[2016-09-03 17:25] LABS: Glucose,Whole Blood 94 mg/dL (75-99)
[2016-09-03 17:25] LABS: Glucose,Whole Blood 69 mg/dL (75-99)
--- NOTE | 2016-09-03 17:32 | CT ---
EXAMINATION TYPE: CT chest angio for PE DATE OF EXAM: 09/03/2016. COMPARISON: CTA chest August 21, 2016. HISTORY: Shortness of breath, elevated d-dimer, and tachycardia status post OP colon resection CT DLP: 677 mGycm. Automated Exposure Control for Dose Reduction was Utilized. CONTRAST: CTA scan of the thorax is performed with IV Contrast, patient injected with 100 mL of Omnipaque 350, pulmonary embolism protocol. MIP Images are created on CT scanner and reviewed. FINDINGS: LUNGS: There is redemonstration of elevated right hemidiaphragm even more prominent than on prior exa m. There is dense atelectasis adjacent to elevated right hemidiaphragm filling the right lung base re demonstrated. Cardiac exam is suboptimal due to respiratory motion artifact. Some new increased opaci ty bilaterally could reflect mild alveolar edema and/or atelectatic change. No pleural effusion or pn eumothorax is seen. MEDIASTINUM: There is suboptimal bolus with equal contrast seen in right and left heart systems and h eterogeneity identified, there is no convincing CT evidence for pulmonary embolism however. There ar e no greater than 1 cm hilar or mediastinal lymph nodes. There is prominent but subcentimeter right p aratracheal lymph node on axial image 42 noted. No cardiomegaly or pericardial effusion is seen. Th ere is mild to moderate atherosclerotic change of the aorta extending into abdominal branch vessels. Coronary artery calcification is redemonstrated. OTHER: Liver is diffusely low dense suggesting fatty infiltration. Some simple appearing cysts are sc attered throughout visualized liver. Osseous structures are demineralized. There is advanced degenera tive change in bilateral glenohumeral joints. There are spur disc complexes effacing anterior thecal sac in the upper thoracic and mid to lower thoracic spine at several levels redemonstrated. A low den se lesion mid pole level left kidney favor simple cyst IMPRESSION: 1. Suboptimal study without CT evidence for clinically significant pulmonary embolism. 2. Diminished inspiration with worsening elevation of right hemidiaphragm and worsening associated ri ght basilar atelectatic change. Mild diffuse edema is felt present. Consider fluid overload state.
--- NOTE | 2016-09-03 19:33 | PN ---
This patient is a 75-year-old admitted secondary to sigmoid perforation. Postoperative course was complicated by dehiscence of the abdominal wound. Patient was also treated for pneumonia at some point of time. Patient at this point of time remains tachycardic. TSH is essentially within normal limits. I will obtain a D-dimer. It can be positive most probably because of all her medical problems, including recent surgery. If it is positive, I will go ahead and get a CT to rule out pulmonary embolism. If it is negative, we will go ahead and increase the metoprolol dose to 75 mg daily, sustained release. Patient still did not move his bowels; has only gas in the colostomy. Patient is receiving suppository ( ) that. Patient has very sluggish bowel sounds. REVIEW OF SYSTEMS: CARDIOVASCULAR: No chest pain, no orthopnea, no PND, no palpitations. PULMONARY: Denied any shortness of breath. No cough or hemoptysis. GASTROINTESTINAL: As mentioned above. NEUROLOGIC: No headaches, no weakness, no numbness. Medications were reviewed. Medication changes as mentioned in the interval history. PHYSICAL EXAMINATION: VITAL SIGNS: Temperature 99.4, pulse of 107, respiratory rate of 20. Blood pressure is 125/58. Saturating at 95% on 2 L of oxygen by nasal cannula. GENERAL: The patient is alert and oriented x3, not in any acute distress. Well developed, well nourished. HEENT: Pupils are round and equally reacting to light. EOMI. No scleral icterus. No conjunctival pallor. Normocephalic, atraumatic. No pharyngeal erythema. No thyromegaly. CARDIOVASCULAR: S1, S2 present. Patient has regular rhythm. Tachycardic. No murmurs, rubs or gallops. PULMONARY: Chest is clear to auscultation, no wheezing or crackles. ABDOMEN: Patient has [address] which are not draining significantly. Patient has a colostomy bag without much stool in it. MUSCULOSKELETAL: No joint swelling or deformity. EXTREMITIES: No cyanosis, clubbing, or pedal edema. NEUROLOGICAL: Gross neurological examination did not reveal any focal deficits. SKIN: No rashes. LABORATORY DATA: CBC, CMP are abnormal for mildly low sodium of 134, hemoglobin of 10.1. ASSESSMENT AND PLAN: 1. Acute sigmoid perforation, status post laparotomy and Maged's pouch. 2. Postoperative course complicated by dehiscence of surgical site. 3. Chronic obstructive pulmonary disease. 4. Sinus tachycardia; etiology is unclear at this point of time. TSH within normal limits. Management as mentioned above. 5. Degenerative joint disease. 6. Hypertension. 7. Right-sided diaphragmatic paralysis. PLAN: Continue with present medications. Obtain a D-dimer. If it is positive, will get CTA of the chest to rule out pulmonary embolism, although my suspicion is low for that. Patient has been on DVT prophylaxis. Increase the dose of metoprolol starting tomorrow.
[2016-09-03 21:18] LABS: Glucose,Whole Blood 149 mg/dL (75-99)
[2016-09-03] MEDS: INSULIN GLARGINE 100 UNIT/ML 10 ML VIAL SQ SCH ×2 (21:27→21:34)
[2016-09-03] MEDS: LORazepam 2 MG/ML SYRINGE IV PRN (21:29)
[2016-09-04 07:45] LABS: Glucose,Whole Blood 138 mg/dL (75-99)
[2016-09-04] MEDS: ACYCLOVIR SODIUM 500 MG in SODIUM CHLORIDE 0.9% 100 ML IVPB SCH ×3 (07:45→22:56)
[2016-09-04] MEDS: INSULIN LISPRO (humaLOG) 300 UNIT/3 ML VIAL SQ SCH ×7 (07:48→21:42)
[2016-09-04] MEDS: ENOXAPARIN 40 MG/0.4 ML SYRINGE SQ SCH (07:49)
[2016-09-04] MEDS: PANTOPRAZOLE 40 MG/10 ML VIAL IV SCH (07:50)
[2016-09-04] MEDS: IPRATROPIUM-ALBUTEROL 3 ML NEB INHALATION SCH ×4 (08:26→21:15)
[2016-09-04] MEDS: FORMOTEROL FUMARATE 20 MCG/2 ML NEBU INHALATION SCH ×2 (08:26→21:15)
[2016-09-04] MEDS: BUDESONIDE 1 MG/2 ML NEBU INHALATION SCH ×2 (08:26→21:15)
[2016-09-04 08:59] LABS: Anion Gap 8 mmol/L; Blood Urea Nitrogen 7 mg/dL (7-17); Calcium 8.1 mg/dL (8.4-10.2); Carbon Dioxide 27 mmol/L (22-30); Chloride 103 mmol/L (98-107); Glucose 169 mg/dL (74-99); Magnesium 2.1 mg/dL (1.6-2.3); Non-African American GFR(MDRD) >60 (>60 ml/min/1.73 sqM); Phosphorous 3.6 mg/dL (2.5-4.5); Sodium 138 mmol/L (137-145)
[2016-09-04] MEDS ORDERED: METOPROLOL SUCCINATE (ER) 25 MG TAB.ER.24H PO SCH (09:00)
[2016-09-04] MEDS ORDERED: METOPROLOL SUCCINATE (ER) 50 MG TAB.ER.24H PO SCH (09:00)
[2016-09-04] MEDS: HYDROmorphone 1 MG/ML 1 ML SYRINGE IVP PRN (09:55)
[2016-09-04] MEDS: LORazepam 2 MG/ML SYRINGE IV PRN ×2 (09:56→21:51)
[2016-09-04 12:26] LABS: Glucose,Whole Blood 64 mg/dL (75-99)
[2016-09-04 12:26] LABS: Glucose,Whole Blood 80 mg/dL (75-99)
[2016-09-04 14:04] VITALS: BMI 31.6
[2016-09-04] MEDS ORDERED: BISACODYL 5 MG TABLET.DR PO STA (16:57)
[2016-09-04 17:40] LABS: Glucose,Whole Blood 110 mg/dL (75-99)
[2016-09-04 20:56] LABS: Glucose,Whole Blood 141 mg/dL (75-99)
[2016-09-04] MEDS: INSULIN GLARGINE 100 UNIT/ML 10 ML VIAL SQ SCH (21:42)
[2016-09-05] MEDS: ACYCLOVIR SODIUM 500 MG in SODIUM CHLORIDE 0.9% 100 ML IVPB SCH (06:30)
[2016-09-05 07:03] LABS: Glucose,Whole Blood 190 mg/dL (75-99)
[2016-09-05 07:21] VITALS: BP 108/67; RESP 18; TEMP 99.2
[2016-09-05] MEDS: INSULIN LISPRO (humaLOG) 300 UNIT/3 ML VIAL SQ SCH ×4 (07:45→13:16)
[2016-09-05] MEDS: ENOXAPARIN 40 MG/0.4 ML SYRINGE SQ SCH (07:45)
[2016-09-05] MEDS: PANTOPRAZOLE 40 MG/10 ML VIAL IV SCH (07:45)
[2016-09-05] MEDS: BUDESONIDE 1 MG/2 ML NEBU INHALATION SCH (08:19)
[2016-09-05] MEDS: IPRATROPIUM-ALBUTEROL 3 ML NEB INHALATION SCH ×2 (08:19→11:21)
[2016-09-05] MEDS: FORMOTEROL FUMARATE 20 MCG/2 ML NEBU INHALATION SCH (08:19)
[2016-09-05] MEDS: HYDROmorphone 1 MG/ML 1 ML SYRINGE IVP PRN (08:34)
[2016-09-05] MEDS ORDERED: METOPROLOL SUCCINATE (ER) 100 MG TAB.ER.24H PO SCH (09:00)
[2016-09-05] MEDS: LORazepam 2 MG/ML SYRINGE IV PRN (09:54)
[2016-09-05 11:23] VITALS: PULSE 104
[2016-09-05 12:00] LABS: Glucose,Whole Blood 140 mg/dL (75-99)
[2016-09-05] MEDS ORDERED: ACETAMINOPHEN TAB 325 MG TAB PO PRN (12:08)
[2016-09-05] MEDS ORDERED: IBUPROFEN 600 MG TAB PO PRN (12:08)
--- NOTE | 2016-09-05 12:32 | P.DS ---
Providers Date of admission: 08/21/16 18:05 Expected date of discharge: 09/05/16 Attending physician: Sidney Carreno Consults: 08/21/16 20:32 Consult Physician Routine Consulting Provider: Uriel Nelson Consult Reason/Comments: pneumonia Do you want consulting provider notified?: Yes 08/23/16 09:48 Consult Physician Routine Consulting Provider: Stephanie Siu Consult Reason/Comments: pneumoperitomium Do you want consulting provider notified?: Yes 08/25/16 03:22 Consult Physician Routine Consulting Provider: Prabhakar Kellogg Consult Reason/Comments: Tachycardia/bigeminy Do you want consulting provider notified?: Yes, Notify in am Primary care physician: Vladimir Meyers [facility] Course: Final Diagnoses: 1. Acute sigmoid perforation attributed to diverticulitis, status post laparotomy and Maloney's procedure. 2. Postoperative course complicated by dehiscence of surgical site. 3. COPD 4. Sinus tachycardia, etiology unclear, TSH within normal limits, CTA negative for PE, management as mentioned. Echo reports preserved LV function, moderate concentric left hypertrophy. 5. Degenerative joint disease 6. Essential hypertension 7. Right-sided diaphragmatic paralysis 8. Diabetes mellitus 9. Obesity, BMI 31.6 Hospital course: This a 75-year-old female admitted with acute sigmoid perforation, and multiple other medical issues including COPD, metabolic encephalopathy. Postoperative course complicated by dehiscence of the abdominal wound. Patient was also treated for pneumonia. Mildly tachycardia, TSH within normal limits, elevated d-dimer with CTA negative for pulmonary embolism. Therefore beta francisco dose increased. Colostomy functioning. Pain management, wound care as per surgery. Patient has been cleared by all consults including surgery for discharge to [facility] rehab. Patient is being discharged in a stable condition with guarded prognosis. Patient Condition at Discharge: Stable Plan - Discharge Summary New Discharge Prescriptions: INSULIN LISPRO (HumaLOG) [humaLOG] 0 unit SQ ACHS #1 vial Metoclopramide [Reglan] 10 mg PO ACHS #1 tab Discharge Medication List Aspirin 81 mg PO DAILY 11/20/13 [History] Cholecalciferol [Vitamin D3] 1,000 unit PO DAILY 03/19/15 [History] Acetaminophen Tab [Tylenol] 650 mg PO Q6HR PRN #0 tab 09/05/16 [Rx] Albuterol Nebulized [Ventolin Nebulized] 2.5 mg INHALATION Q4H PRN #0 nebu 09/05 [Rx] INSULIN LISPRO (HumaLOG) [humaLOG] 0 unit SQ ACHS #1 vial 09/05/16 [Rx] INSULIN LISPRO (humaLOG) [humaLOG (formulary)] 10 unit SQ AC-TID vial 09/05/16 [Rx] Ibuprofen [Motrin] 600 mg PO TID PRN #0 tab 09/05/16 [Rx] Insulin Glargine [Lantus] 15 unit SQ HS vial 09/05/16 [Rx] Ipratropium-Albuterol Nebulize [Duoneb 0.5 mg-3 mg/3 ml Soln] 3 ml INHALATION RT -QID ampul.neb 09/05/16 [Rx] Metoclopramide [Reglan] 10 mg PO ACHS #1 tab 09/05/16 [Rx] Metoprolol Succinate (ER) [Toprol XL] 100 mg PO DAILY tab.er.24h 09/05/16 [Rx] Pantoprazole [Protonix] 40 mg PO DAILY tablet. 09/05/16 [Rx] Follow up Appointment(s)/Referral(s): [facility], [NON-STAFF] - Stephanie Siu DO [Doctor of Osteopathic Medicine] - 2 Weeks Reji Torres MD [STAFF PHYSICIAN] - 3 Days (While at [facility]) Vladimir Meyers III, MD [Primary Care Provider] - 1 Week (After DC from [facility]) Uriel Nelson MD [STAFF PHYSICIAN] - 2 Weeks Patient Instructions/Handouts: Colostomy Care (GEN), Pneumonia (DC), Perforated Bowel (DC) Activity/Diet/Wound Care/Special Instructions: [facility] pain management, wound and ostomy care as per surgery *dressing to abdominal incision- cleanse with antibacterial soap, pat dry, apply aquacel ag to distal part of incision, cover with dry gauze change every other day. Colostomy Care instructions LAst Appliance Change: Patient is to empty the osotmy pouch when it is 1/2 to 1/3 full over the toilet. Mrs. Calix is to change the osotmy appliance every 3- 5 days or as directed by your RN. Mrs Calix will have three pouches for home use Howard #[id number] Also Rings to fill the skin crease as needed Osotmy powder Skin prep pads Osotmy De[place]rant to use daily in the pouch Home Health please set Mrs Calix up with her [email or web address] prior to discharging from services. Diet: Low fiber Activity: As tolerated Aggressive pulmonary toileting, I asked every hour 10 while awake CBC, BMP in 3 days Discharge Disposition: TRANSFER TO SNF/ECF
[2016-09-05] MEDS ORDERED: traMADol 50 MG TAB PO PRN (13:12)
--- NOTE | 2016-09-05 15:27 | P.PN ---
Subjective Date of service 09/04/2016 Progress note being dictated for Dr. Carreno Interval history:This a 75-year-old female admitted with acute sigmoid perforation, status post laparotomy and Maolney's pouch, postoperative wound dehiscence and multiple other medical issues including COPD, metabolic encephalopathy. Beta francisco dose increased with mild tachycardia, TSH within normal limits, elevated d-dimer with CTA negative for pulmonary embolism. Denies chest pain, palpitations or increasing shortness of breath. Objective - Vital Signs Vital signs: Vital Signs Temp 97.1 F L 09/04/16 15:00 Pulse 98 09/04/16 16:58 Resp 20 09/04/16 15:00 BP 106/58 09/04/16 15:00 Pulse Ox 96 09/04/16 15:00 Intake & Output 09/03/16 09/04/16 09/04/16 18:59 06:59 18:59 Intake Total 480 Output Total 150 90 Balance 330 -90 Weight 78.4 kg Intake: Oral 480 Output: Drainage 150 90 Right Lower Abdomen 50 80 Right Upper Abdomen 100 10 Stool 0 Other: Voiding Method Bedside Commode Bedpan # Voids 1 6 4 # Bowel Movements 0 - Exam PHYSICAL EXAM: VITAL SIGNS: As above GENERAL: [Sitting up in bed, no acute distress] HEENT: [Pupils equal conjunctiva normal.] NECK: [Supple, no JVD] RESPIRATORY EFFORT:[Normal] LUNGS: [Clear to auscultation, no crackles wheezing or rhonchi] CARDIOVASCULAR[regular S1 and S2, tachycardic, no murmurs rubs or gallops, no edema] GI: [Abdomen soft, status post surgery, dressing clean dry and intact, YUVAL drains 2 , colostomy with minimal stool present ,positive bowel sounds.] PSYCH: [Alert and oriented -3, mood and affect normal.] NEURO: Gross neurological examination did not reveal any focal deficits - Labs CBC & Chem 7: 09/03/16 08:04 09/04/16 08:18 Labs: Abnormal Lab Results - Last 24 Hours (Table) 09/03/16 09/03/16 09/04/16 Range/Units 17:07 20:51 07:33 Glucose (74-99) mg/dL POC Glucose (mg/dL) 69 L 149 H 138 H (75-99) mg/dL Calcium (8.4-10.2) mg/dL 09/04/16 09/04/16 Range/Units 08:18 12:04 Glucose 169 H (74-99) mg/dL POC Glucose (mg/dL) 64 L (75-99) mg/dL Calcium 8.1 L (8.4-10.2) mg/dL Assessment and Plan Plan: 1. Acute sigmoid perforation attributed to diverticulitis, status post laparotomy and Maloney's procedure. 2. Postoperative course complicated by dehiscence of surgical site. 3. COPD 4. Sinus tachycardia, etiology unclear, TSH within normal limits, CTA negative for PE, management as mentioned. Echo reports preserved LV function, moderate concentric left hypertrophy. 5. Degenerative joint disease 6. Essential hypertension 7. Right-sided diaphragmatic paralysis 8. Diabetes mellitus 9. Obesity, BMI 31.6 Plan continue on current medication regime ,monitoring and symptomatic treatment. Aggressive pulmonary toileting, IS every hour 10 while awake Will increase metoprolol to 100 mg daily, starting in a.m., related to mild tachycardia. Pain management and wound care as per surgery. Discharge planning in progress for tomorrow to [facility] rehab pending surgeries clearance. The impression and plan of care has been dictated as directed. : I performed a H&P examination of this patient and discussed the same with the dictator. I agree with the dictator's note. Any additional findings/opinions/ etc. will be noted.
[2016-09-06] MEDS ORDERED: PANTOPRAZOLE 40 MG TABLET PO SCH (09:00)
== END 2016-09-05 14:29 | DRG 329 ==
LOC: EC 15:47 → 4MS4W 18:05 → 6ICU 08-23 12:08 → 6SEL 08-28 12:52 → 4MS4W 09-02 15:26
PROVIDERS: ADMIT Hospitalist; ATTEND Hospitalist
PROC: 0DBN0ZZ Excision of Sigmoid Colon, Open Approach (ICD-10-PCS; principal; 2016-08-23 11:00)
PROC: 0D1N0Z4 Bypass Sigmoid Colon to Cutaneous, Open Approach (ICD-10-PCS; principal; 2016-08-23 11:00)
DX: K57.20 Diverticulitis of large intestine with perforation and abscess without bleeding (principal); G93.41 Metabolic encephalopathy; J18.9 Pneumonia, unspecified organism; J90 Pleural effusion, not elsewhere classified; K56.7 Ileus, unspecified; E11.9 Type 2 diabetes mellitus without complications; I11.9 Hypertensive heart disease without heart failure; J44.0 Chronic obstructive pulmonary disease with (acute) lower respiratory infection; J44.1 Chronic obstructive pulmonary disease with (acute) exacerbation; T81.31XA Disruption of external operation (surgical) wound, not elsewhere classified, initial encounter; E86.0 Dehydration; E83.51 Hypocalcemia; D75.1 Secondary polycythemia; B00.1 Herpesviral vesicular dermatitis; E66.9 Obesity, unspecified; F41.1 Generalized anxiety disorder; I49.3 Ventricular premature depolarization; K66.0 Peritoneal adhesions (postprocedural) (postinfection); M19.90 Unspecified osteoarthritis, unspecified site; R33.9 Retention of urine, unspecified; Z68.31 Body mass index [BMI] 31.0-31.9, adult; Z79.82 Long term (current) use of aspirin; Z79.899 Other long term (current) drug therapy; Z86.19 Personal history of other infectious and parasitic diseases; Z87.891 Personal history of nicotine dependence; Z91.013 Allergy to seafood; J98.6 Disorders of diaphragm; R00.0 Tachycardia, unspecified
CPT/HCPCS: 36415; 36569; 71010; 71020; 71275; 76000; 76937; 80048; 80053; 80076; 81003; 82330; 82550; 82553; 83036; 83605; 83735; 83880; 84100; 84443; 84478; 84484; 85025; 85027; 85379; 85610; 85730; 87040; 87070; 87086; 87205; 87502; 88307; 93005; 93306; 94640; 94644; 94760; 96361; 96365; 99285

== ENCOUNTER 2016-09-20 18:43 | Inpatient (IN) | payer MEDICARE ==
[2016-09-20] MEDS ORDERED: SODIUM CHLORIDE 0.9% 1,000 ML IV STA (19:11)
[2016-09-20] MEDS ORDERED: ONDANSETRON 4 MG/2 ML VIAL IVP STA (19:11)
--- NOTE | 2016-09-20 19:16 | ED ---
Nausea/Vomiting/Diarrhea HPI - General Chief complaint: Nausea/Vomiting/Diarrhea Stated complaint: NAUSEATED, DIARRHEA, VOMITING BILE Time Seen by Provider: 09/20/16 19:02 Source: patient, RN notes reviewed Mode of arrival: wheelchair Limitations: no limitations - History of Present Illness Initial comments: Patient is a 75-year-old female chief complaint of nausea and a few episodes of vomiting today. Patient reports that she has history of perforated large intestine and when she had a colostomy bag in place. Patient reports that she had seen Dr. Siu for this and had seen Dr. Siu earlier this week. Patient reports that she's had a few episodes of diarrhea which is then subsided however now she is just feeling extremely nauseated. Patient states that she has her gallbladder and appendix still. She reports that she's also had a significant cough over the past few days. She reports that she just feels generally ill. Patient reports that she also has some lower back pain near her kidneys. She reports that she's had very little urination. - Related Data Home Medications Medication Instructions Recorded Confirmed Aspirin 81 mg PO DAILY 11/20/13 09/20/16 Cholecalciferol [Vitamin D3] 1,000 unit PO DAILY 03/19/15 09/20/16 Albuterol Nebulized [Ventolin 2.5 mg INHALATION RT-Q4H PRN 09/20/16 09/20/16 Nebulized] INSULIN LISPRO (humaLOG) [humaLOG See Protocol SQ AC-TID 09/20/16 09/20/16 (formulary)] Metoclopramide [Reglan] 10 mg PO ACHS PRN 09/20/16 09/20/16 Temazepam [Restoril] 30 mg PO HS PRN 09/20/16 09/20/16 Previous Rx's Medication Instructions Recorded Insulin Glargine [Lantus] 15 unit SQ HS vial 09/05/16 Ipratropium-Albuterol Nebulize 3 ml INHALATION RT-QID ampul.neb 09/05/16 [Duoneb 0.5 mg-3 mg/3 ml Soln] Metoprolol Succinate (ER) [Toprol 100 mg PO DAILY tab.er.24h 09/05/16 XL] Allergies Allergy/AdvReac Type Severity Reaction Status Date / Time shellfish derived [Shellfish] Allergy Severe Anaphylaxis Verified 09/20/16 19:16 morphine Allergy Intermediate Rash/Hives Verified 09/20/16 19:16 cefuroxime axetil Allergy Unknown Verified 09/20/16 19:16 [From Ceftin] codeine Allergy Unknown Verified 09/20/16 19:16 erythromycin base Allergy Unknown Verified 09/20/16 19:16 [From E-Mycin] fentanyl Allergy Unknown Verified 09/20/16 19:16 hydrocodone bitartrate Allergy Unknown Verified 09/20/16 19:16 [From Lortab] lisinopril Allergy anxiety Verified 09/20/16 19:16 meperidine HCl [From Demerol] Allergy Unknown Verified 09/20/16 19:16 milk Allergy Unknown Verified 09/20/16 19:16 oxycodone HCl [From Percocet] Allergy Unknown Verified 09/20/16 19:16 SEAFOOD Allergy Severe Anaphylaxis Uncoded 09/20/16 18:53 Review of Systems ROS Statement: Those systems with pertinent positive or pertinent negative responses have been documented in the HPI. ROS Other: All systems not noted in ROS Statement are negative. Past Medical History Past Medical History: Diabetes Mellitus, Hypertension Additional Past Medical History / Comment(s): Obesity, hiatal hernia, shingles, diabetes mellitus, hypertension, degenerative arthritis, generalized anxiety disorder. History of Any Multi-Drug Resistant Organisms: None Reported Past Surgical History: Back Surgery, Heart Catheterization Additional Past Surgical History / Comment(s): mult back surgeries-back and neck fusions, epidural spinal shots for pain control, bilateral cataract surgeries Past Anesthesia/Blood Transfusion Reactions: Previous Problems w/ Anesthesia Additional Past Anesthesia/Blood Transfusion Reaction / Comment(s): stopped breathing during back surgery from being "over medicated" - had to get narcan Past Psychological History: Anxiety Smoking Status: Former smoker Past Alcohol Use History: None Reported Additional Past Alcohol Use History / Comment(s): started smoking at age 17, smoked 1 pp week, quit 1989 Past Drug Use History: None Reported - Past Family History Brother(s) Family Medical History: Cancer General Exam - General Exam Comments Initial Comments: Pleasant 75-year-old female. No distress. Limitations: no limitations General appearance: alert, in no apparent distress Head exam: Present: atraumatic, normocephalic, normal inspection Eye exam: Present: normal appearance, PERRL, EOMI. Absent: scleral icterus, conjunctival injection, periorbital swelling ENT exam: Present: normal exam, mucous membranes moist Neck exam: Present: normal inspection. Absent: tenderness, meningismus, lymphadenopathy Respiratory exam: Present: normal lung sounds bilaterally, rhonchi. Absent: respiratory distress, wheezes, rales, stridor Cardiovascular Exam: Present: regular rate, normal rhythm, normal heart sounds. Absent: systolic murmur, diastolic murmur, rubs, gallop, clicks GI/Abdominal exam: Present: soft, normal bowel sounds, other (Colostomy bag. An incision healing scars from colostomy surgery.). Absent: distended, tenderness, guarding, rebound, rigid Extremities exam: Present: normal inspection, full ROM, normal capillary refill. Absent: tenderness, pedal edema, joint swelling, calf tenderness Back exam: Present: normal inspection, CVA tenderness (R), CVA tenderness (L) Neurological exam: Present: alert, oriented X3, CN II-XII intact Psychiatric exam: Present: normal affect, normal mood Skin exam: Present: warm, dry, intact, normal color. Absent: rash Course Vital Signs 09/20/16 09/20/16 18:53 21:20 Temperature 97.1 F L 98.2 F Pulse Rate 95 84 Respiratory 17 18 Rate Blood Pressure 133/78 151/74 O2 Sat by Pulse 95 96 Oximetry Medical Decision Making - Medical Decision Making 75-year-old female with history of nausea and feeling generally ill as well as productive cough for the past week. Patient also said multiple episodes of the diarrhea earlier in the week. Patient is chest x-rays reviewed in could correlate for a pneumonia given patient's significant cough. Patient's lab work was reviewed and essentially benign. has recently been admitted to the hospital. Discussed the case with Dr. High. At this time we like to call at hospital-acquired pneumonia. DR. High stated that he would like the patient to receive Levaquin, Zosyn and vancomycin given the fact that she was recently hospitalized within the past month. Patient will be receiving breathing treatments and IV fluids. - Lab Data Result diagrams: 09/20/16 19:35 09/20/16 19:35 Lab Results 09/20/16 09/20/16 09/20/16 Range/Units 19:35 19:35 20:20 WBC 5.1 (3.8-10.6) k/uL RBC 4.41 (3.80-5.40) m/uL Hgb 12.6 (11.4-16.0) gm/dL Hct 40.1 (34.0-46.0) % MCV 90.8 (80.0-100.0) fL MCH 28.6 (25.0-35.0) pg MCHC 31.6 (31.0-37.0) g/dL RDW 14.9 (11.5-15.5) % Plt Count 358 (150-450) k/uL Neutrophils % 64 % Lymphocytes % 20 % Monocytes % 9 % Eosinophils % 3 % Basophils % 1 % Neutrophils # 3.3 (1.3-7.7) k/uL Lymphocytes # 1.0 (1.0-4.8) k/uL Monocytes # 0.5 (0-1.0) k/uL Eosinophils # 0.2 (0-0.7) k/uL Basophils # 0.0 (0-0.2) k/uL Hypochromasia Marked Poikilocytosis Slight Sodium 140 (137-145) mmol/L Potassium 4.3 (3.5-5.1) mmol/L Chloride 106 (98-107) mmol/L Carbon Dioxide 24 (22-30) mmol/L Anion Gap 10 mmol/L BUN 8 (7-17) mg/dL Creatinine 0.64 (0.52-1.04) mg/dL Est GFR (MDRD) Af Amer >60 (>60 ml/min/1.73 sqM) Est GFR (MDRD) Non-Af >60 (>60 ml/min/1.73 sqM) Glucose 142 H (74-99) mg/dL Calcium 9.1 (8.4-10.2) mg/dL Total Bilirubin 0.6 (0.2-1.3) mg/dL AST 88 H (14-36) U/L ALT 79 H (9-52) U/L Alkaline Phosphatase 89 (38-126) U/L Total Protein 6.4 (6.3-8.2) g/dL Albumin 3.1 L (3.5-5.0) g/dL Amylase 54 (30-110) U/L Lipase 196 (23-300) U/L Urine Color Yellow Urine Appearance Cloudy H (Clear) Urine pH 7.5 (5.0-8.0) Ur Specific [place] 1.011 (1.001-1.035) Urine Protein Negative (Negative) Urine Glucose (UA) Negative (Negative) Urine Ketones Negative (Negative) Urine Blood Negative (Negative) Urine Nitrite Negative (Negative) Urine Bilirubin Negative (Negative) Urine Urobilinogen 2.0 (<2.0) mg/dL Ur Leukocyte Esterase Small H (Negative) Urine RBC <1 (0-5) /hpf Urine WBC 5 (0-5) /hpf Ur Squamous Epith Cells 4 (0-4) /hpf Urine Bacteria Rare H (None) /hpf Urine Mucus Rare H (None) /hpf - Radiology Data Radiology results: report reviewed Nonobstructive bowel gas pattern. Postop change noted in lumbar spine. Heart may be enlarged right hemidiaphragm is elevated. No bowel obstruction or pneumoperitoneum. Bone mineralization to somewhat reproduce. Possible renal calcification on the left measuring 5-6 mm. Basilar atelectasis, correlate with to exclude pneumonia. There may be diaphragmatic paralysis. Disposition Clinical Impression: Hospital-acquired bacterial pneumonia Disposition: ADMITTED IP TO THIS HOSP Condition: Stable Time of Disposition: 20:55
[2016-09-20 19:51] LABS: Basophils % (A) 1 %; CH 28.6; CHCM 31.6; Eosinophils # (A) 0.2 k/uL (0-0.7); Eosinophils % (A) 3 %; HCT 40.1 % (34.0-46.0); HGB 12.6 gm/dL (11.4-16.0); Hypochromasia Marked; Luc # (Auto) 0.17; Luc % (Auto) 3; Lymphocytes % (A) 20 %; MCH 28.6 pg (25.0-35.0); MCHC 31.6 g/dL (31.0-37.0); MCV 90.8 fL (80.0-100.0); Mean Platelet Volume 7.7; Monocytes # (A) 0.5 k/uL (0-1.0); Monocytes % (A) 9 %; Neutrophils # (A) 3.3 k/uL (1.3-7.7); Neutrophils % (A) 64 %; Poikilocytosis Slight; RBC 4.41 m/uL (3.80-5.40); RDW 14.9 % (11.5-15.5); WBC 5.1 k/uL (3.8-10.6); WBC (Perox) 5.12
[2016-09-20 20:02] LABS: ALT 79 U/L (9-52); AST 88 U/L (14-36); Alkaline Phosphatase 89 U/L (38-126); Amylase 54 U/L (30-110); Anion Gap 10 mmol/L; Blood Urea Nitrogen 8 mg/dL (7-17); Calcium 9.1 mg/dL (8.4-10.2); Carbon Dioxide 24 mmol/L (22-30); Chloride 106 mmol/L (98-107); Glucose 142 mg/dL (74-99); Non-African American GFR(MDRD) >60 (>60 ml/min/1.73 sqM); Potassium 4.3 mmol/L (3.5-5.1); Sodium 140 mmol/L (137-145); Total Bilirubin 0.6 mg/dL (0.2-1.3); Total Protein 6.4 g/dL (6.3-8.2)
--- NOTE | 2016-09-20 20:21 | XR ---
Abdomen HISTORY: Nausea vomiting and diarrhea Frontal view of the abdomen on 2 images No comparisons Postop change noted in the lumbar spine. The heart may be enlarged, right hemidiaphragm is elevated. No bowel obstruction or pneumoperitoneum. Bone mineralization somewhat reduced. Possible renal calcif ication on the left measuring 5 to 6 mm. IMPRESSION: Nonobstructive bowel gas pattern. Additional findings above.
--- NOTE | 2016-09-20 20:23 | XR ---
EXAMINATION TYPE: XR chest 2V DATE OF EXAM: 09/20/2016 8:01 PM COMPARISON: Abdomen same date and chest CT 03 September 2016, chest x-ray 03 September 2016 HISTORY: Pain TECHNIQUE: Frontal and lateral views of the chest are obtained. FINDINGS: There is persistent elevation of the right hemidiaphragm, there is basilar atelectasis on the right. No pneumothorax. No definite pleural effusion. IMPRESSION: Basilar atelectasis, correlate to exclude pneumonia. 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
[2016-09-20] MEDS ORDERED: PNEUMONIA PROTOCOL UTILIZED 1 EACH MISC PO PRN (20:55)
[2016-09-20] MEDS ORDERED: LEVOFLOXACIN 750MG-D5W PMX 750 MG in DEXTROSE/WATER 1 150ML.BAG IVPB STA (20:55)
[2016-09-20 20:57] LABS: Appearance,Urine Cloudy (Clear); Bacteria,Urine Rare /hpf; Bilirubin,Urine Negative (Negative); Glucose,Urine (UA) Negative (Negative); Ketones,Urine Negative (Negative); Leukocyte Esterase,Urine Small (Negative); Mucus,Urine Rare /hpf; Nitrite,Urine Negative (Negative); PH, Urine 7.5 (5.0-8.0); Particle Count 21212; Protein,Urine Negative (Negative); RBC,Urine <1 /hpf (0-5); Specific Gravity,Urine 1.011 (1.001-1.035); Squamous Epithelial Cell,Urine 4 /hpf (0-4); UA Billing (MACRO vs. MICRO) MICRO; WBC,Urine 5 /hpf (0-5)
[2016-09-20] MEDS ORDERED: IV VANCOMYCIN PER PHARMACY 1 EACH MISC MISCELLANE PRN (20:58)
[2016-09-20] MEDS: SODIUM CHLORIDE 0.9% 1,000 ML IV SCH (21:17)
[2016-09-20] MEDS ORDERED: VANCOMYCIN 1,250 MG in SODIUM CHLORIDE 0.9% 250 ML IVPB ONE (22:00)
[2016-09-20 22:01] LABS: Glucose,Whole Blood 131 mg/dL (75-99)
[2016-09-20] MEDS ORDERED: IPRATROPIUM-ALBUTEROL 3 ML NEB INHALATION PRN (23:16)
[2016-09-20] MEDS ORDERED: ALBUTEROL NEBULIZED 2.5 MG/3 ML INHALATION PRN (23:45)
[2016-09-20] MEDS ORDERED: METOCLOPRAMIDE 10 MG TAB PO PRN (23:45)
[2016-09-20] MEDS: ONDANSETRON 4 MG/2 ML VIAL IVP SCH (23:59)
[2016-09-21] MEDS: TEMAZEPAM 30 MG CAP PO PRN ×2 (01:05→23:06)
[2016-09-21] MEDS: PIPERACILLIN-TAZOBACTAM 3.375 GM in DEXTROSE/WATER 1 50ML.BAG IVPB SCH ×4 (01:48→23:06)
[2016-09-21] MEDS: ONDANSETRON 4 MG/2 ML VIAL IVP SCH ×4 (06:43→23:06)
[2016-09-21 06:51] LABS: Glucose,Whole Blood 110 mg/dL (75-99)
[2016-09-21] MEDS: INSULIN LISPRO (humaLOG) 300 UNIT/3 ML VIAL SQ SCH ×3 (07:22→16:59)
[2016-09-21] MEDS: IPRATROPIUM-ALBUTEROL 3 ML NEB INHALATION SCH ×4 (07:27→19:34)
[2016-09-21] MEDS ORDERED: IPRATROPIUM-ALBUTEROL 3 ML NEB INHALATION SCH ×2 (08:00)
[2016-09-21] MEDS: ASPIRIN 81 MG CHEW PO SCH (08:03)
[2016-09-21] MEDS: CHOLECALCIFEROL 1,000 UNIT TAB PO SCH (08:03)
[2016-09-21] MEDS: METOPROLOL SUCCINATE (ER) 100 MG TAB.ER.24H PO SCH (08:03)
[2016-09-21] MEDS: SODIUM CHLORIDE 0.9% 1,000 ML IV SCH ×2 (08:04→17:30)
[2016-09-21 11:52] LABS: Hemoglobin A1C 6.6 % (4.2-6.1)
[2016-09-21 11:55] LABS: Glucose,Whole Blood 120 mg/dL (75-99)
[2016-09-21] MEDS ORDERED: Magnesium Replacement Protocol 1 EACH MISC MISCELLANE PRN (13:01)
[2016-09-21] MEDS ORDERED: Potassium Replacement Protocol 1 EACH MISC MISCELLANE PRN (13:01)
--- NOTE | 2016-09-21 13:07 | P.HPIM ---
History of Present Illness H&P Date: 09/21/16 Chief Complaint: Shortness of breath This is a 75-year-old female with very complex past medical history noted below who had a prolonged hospitalization recently where she underwent partial colectomy and colostomy placement after an episode of acute diverticulitis and bowel perforation. For the past few days, patient was feeling short of breath. She saw her surgeon on and her incision santosh were removed. Her colostomy is functioning okay. Patient said that her shortness of breath was getting progressively worse. Yesterday she was unable to get to the bathroom without being short of breath. She was also describing cough that was initially productive of clear to white sputum and subsequently her sputum color was more yellow. She did report chills at home but no documented fevers. She presented to the emergency room and was found to be hemodynamically stable. No leukocytosis. Chest x-ray showed bibasilar infiltrate suggestive of possible pneumonia versus atelectasis. Patient was started on broad-spectrum antibiotic and was admitted to the hospital for further evaluation. She is feeling a lot better today. She was able to get up and walk to the bathroom this morning with assistance. Review of Systems Review of system: 14 points review of systems were obtained and were negative except to what were mentioned in the HPI. Past Medical History Past Medical History: Diabetes Mellitus, Hypertension Additional Past Medical History / Comment(s): Obesity, hiatal hernia, shingles, diabetes mellitus, hypertension, degenerative arthritis, generalized anxiety disorder. History of Any Multi-Drug Resistant Organisms: None Reported Past Surgical History: Back Surgery, Heart Catheterization Additional Past Surgical History / Comment(s): mult back surgeries-back and neck fusions, epidural spinal shots for pain control, bilateral cataract surgeries Past Anesthesia/Blood Transfusion Reactions: Previous Problems w/ Anesthesia Additional Past Anesthesia/Blood Transfusion Reaction / Comment(s): stopped breathing during back surgery from being "over medicated" - had to get narcan Past Psychological History: Anxiety Smoking Status: Former smoker Past Alcohol Use History: None Reported Additional Past Alcohol Use History / Comment(s): started smoking at age 17, smoked 1 pp week, quit 1989 Past Drug Use History: None Reported - Past Family History Brother(s) Family Medical History: Cancer Medications and Allergies Home Medications Medication Instructions Recorded Confirmed Type Aspirin 81 mg PO DAILY 11/20/13 09/20/16 History Cholecalciferol [Vitamin D3] 1,000 unit PO DAILY 03/19/15 09/20/16 History Albuterol Nebulized [Ventolin 2.5 mg INHALATION RT-Q4H PRN 09/20/16 09/20/16 History Nebulized] INSULIN LISPRO (humaLOG) [humaLOG See Protocol SQ AC-TID 09/20/16 09/20/16 History (formulary)] Metoclopramide [Reglan] 10 mg PO ACHS PRN 09/20/16 09/20/16 History Temazepam [Restoril] 30 mg PO HS PRN 09/20/16 09/20/16 History Allergies Allergy/AdvReac Type Severity Reaction Status Date / Time shellfish derived [Shellfish] Allergy Severe Anaphylaxis Verified 09/20/16 19:16 morphine Allergy Intermediate Rash/Hives Verified 09/20/16 19:16 cefuroxime axetil Allergy Unknown Verified 09/20/16 19:16 [From Ceftin] codeine Allergy Unknown Verified 09/20/16 19:16 erythromycin base Allergy Unknown Verified 09/20/16 19:16 [From E-Mycin] fentanyl Allergy Unknown Verified 09/20/16 19:16 hydrocodone bitartrate Allergy Unknown Verified 09/20/16 19:16 [From Lortab] lisinopril Allergy anxiety Verified 09/20/16 19:16 meperidine HCl [From Demerol] Allergy Unknown Verified 09/20/16 19:16 milk Allergy Unknown Verified 09/20/16 19:16 oxycodone HCl [From Percocet] Allergy Unknown Verified 09/20/16 19:16 SEAFOOD Allergy Severe Anaphylaxis Uncoded 09/20/16 18:53 Physical Exam Vitals: Vital Signs Temp Pulse Pulse Resp BP BP Pulse Ox 09/21/16 11:36 88 09/21/16 11:26 84 09/21/16 08:00 90 16 09/21/16 07:40 88 09/21/16 07:28 88 95 09/21/16 07:00 97.0 F L 90 16 118/66 96 09/20/16 23:07 97.0 F L 84 18 129/68 97 09/20/16 21:20 98.2 F 84 18 151/74 96 Intake and Output 09/20/16 09/21/16 09/21/16 22:59 06:59 14:59 Intake Total 200 Balance 200 Intake: Oral 200 Other: Voiding Method Bedside Commode # Voids 3 # Bowel Movements 0 General: The patient is awake and alert, in no distress, and does not appear acutely ill. Eye: extra-ocular movements are intact; there is normal conjunctiva bilaterally. . Neck: The neck is supple, there is no tenderness or JVD. Cardiovascular: Normal S1-S2, no S3-S4, no murmurs. Respiratory: Lungs clear to auscultation bilaterally with scattered rales at the bases Gastrointestinal: Abdomen is soft, nontender, colostomy bag the left abdomen Musculoskeletal: Normal ROM, no tenderness, There is no pedal edema. Neurological: There are no obvious motor or sensory deficits. Speech is normal. Skin: Skin is warm and dry and no rashes or lesions are noted. Results CBC & Chem 7: 09/20/16 19:35 09/20/16 19:35 Labs: Abnormal Lab Results - Last 24 Hours (Table) 09/20/16 09/21/16 09/21/16 Range/Units 21:59 06:49 11:53 POC Glucose (mg/dL) 131 H 110 H 120 H (75-99) mg/dL Thrombosis Risk Factor Assmnt - Choose All That Apply Any of the Below Risk Factors Present?: Yes Each Factor Represents 1 point: Abnormal pulmonary function (COPD), Obesity ( BMI >25) Other Risk Factors: Yes Each Risk Factor Represents 3 Points: Age 75 years or older Thrombosis Risk Factor Assessment Total Risk Factor Score: 5 Thrombosis Risk Factor Assessment Level: High Risk Assessment and Plan Plan: 1. Acute dyspnea and shortness of breath 2. Suspected bibasilar pneumonia most likely healthcare acquired. Currently on broad-spectrum antibiotic. I would consult infectious disease for further evaluation. Sputum culture ordered. 3. Underlying COPD with no evidence of exacerbation 4. Type 2 diabetes mellitus: Blood glucose within acceptable range. A1c 6.6. 5. Status post colostomy for left abdomen with recent acute diverticulitis, bowel perforation, and partial colectomy 6. Generalized anxiety disorder 7. Essential hypertension: Blood pressure well-controlled Today, I reviewed her medication list and lab work results. Patient was reassured. Infectious disease consulted for antibiotic management. Continue supportive care otherwise. Repeat lab work in the morning. Consult PT/OT. GI and DVT prophylaxis.
[2016-09-21] MEDS: ACETAMINOPHEN TAB 325 MG TAB PO PRN ×2 (14:47→23:06)
[2016-09-21] MEDS: ALPRAZolam 0.25 MG TAB PO PRN (14:47)
[2016-09-21] MEDS: VANCOMYCIN 1,250 MG in SODIUM CHLORIDE 0.9% 250 ML IVPB SCH (14:48)
[2016-09-21 16:54] LABS: Glucose,Whole Blood 116 mg/dL (75-99)
[2016-09-21 21:05] LABS: Glucose,Whole Blood 168 mg/dL (75-99)
[2016-09-21] MEDS: HEPARIN SODIUM,PORCINE 5,000 UNIT/ML 1 ML VIAL SQ SCH (21:08)
[2016-09-21] MEDS: INSULIN GLARGINE 100 UNIT/ML 10 ML VIAL SQ SCH (21:08)
[2016-09-22] MEDS: ONDANSETRON 4 MG/2 ML VIAL IVP SCH ×3 (06:07→17:30)
[2016-09-22] MEDS: SODIUM CHLORIDE 0.9% 1,000 ML IV SCH ×3 (06:07→23:04)
[2016-09-22] MEDS: VANCOMYCIN 1,250 MG in SODIUM CHLORIDE 0.9% 250 ML IVPB SCH ×2 (06:07→22:59)
[2016-09-22] MEDS: IPRATROPIUM-ALBUTEROL 3 ML NEB INHALATION SCH ×4 (06:56→19:20)
[2016-09-22 07:21] LABS: Glucose,Whole Blood 120 mg/dL (75-99)
[2016-09-22] MEDS: INSULIN LISPRO (humaLOG) 300 UNIT/3 ML VIAL SQ SCH ×3 (07:31→17:30)
[2016-09-22] MEDS: ASPIRIN 81 MG CHEW PO SCH (07:34)
[2016-09-22] MEDS: HEPARIN SODIUM,PORCINE 5,000 UNIT/ML 1 ML VIAL SQ SCH ×2 (07:34→23:09)
[2016-09-22] MEDS: CHOLECALCIFEROL 1,000 UNIT TAB PO SCH (07:34)
[2016-09-22] MEDS: PANTOPRAZOLE 40 MG TABLET PO SCH (07:34)
[2016-09-22] MEDS: METOPROLOL SUCCINATE (ER) 100 MG TAB.ER.24H PO SCH (07:35)
[2016-09-22] MEDS: PIPERACILLIN-TAZOBACTAM 3.375 GM in DEXTROSE/WATER 1 50ML.BAG IVPB SCH ×2 (08:24→15:27)
[2016-09-22 09:31] LABS: Basophils % (A) 0 %; CH 27.7; CHCM 29.3; Eosinophils # (A) 0.2 k/uL (0-0.7); Eosinophils % (A) 4 %; HCT 35.7 % (34.0-46.0); HDW 3.61; HGB 10.6 gm/dL (11.4-16.0); Hypochromasia Marked; Luc # (Auto) 0.13; Luc % (Auto) 3; Lymphocytes # (A) 0.9 k/uL (1.0-4.8); Lymphocytes % (A) 22 %; MCH 28.3 pg (25.0-35.0); MCHC 29.8 g/dL (31.0-37.0); Mean Platelet Volume 7.6; Monocytes # (A) 0.4 k/uL (0-1.0); Monocytes % (A) 9 %; Neutrophils # (A) 2.4 k/uL (1.3-7.7); Neutrophils % (A) 61 %; Poikilocytosis Slight; RBC 3.76 m/uL (3.80-5.40); WBC (Perox) 3.92
[2016-09-22 09:33] LABS: Anion Gap 8 mmol/L; Blood Urea Nitrogen 6 mg/dL (7-17); Calcium 8.5 mg/dL (8.4-10.2); Carbon Dioxide 26 mmol/L (22-30); Chloride 108 mmol/L (98-107); Glucose 166 mg/dL (74-99); Magnesium 1.8 mg/dL (1.6-2.3); Non-African American GFR(MDRD) >60 (>60 ml/min/1.73 sqM); Sodium 142 mmol/L (137-145)
--- NOTE | 2016-09-22 09:51 | P.PN ---
Subjective Patient being treated for pneumonia. Patient reports some improvement in her breathing and cough. Patient has shortness of breath coming back from the bathroom. Her cough is less productive. She denies any chest pain. Denies any nausea vomiting. She is having stools through her colostomy. Denies any difficulty urinating. Objective - Vital Signs Vital signs: Vital Signs Temp 96.9 F L 09/22/16 07:00 Pulse 90 09/22/16 07:06 Resp 16 09/22/16 07:00 BP 98/54 09/22/16 07:00 Pulse Ox 98 09/22/16 07:03 - Exam Head normocephalic Neck supple Lungs coarse breath sounds with wheeze improvement with cough Heart regular rate and rhythm S1-S2, no rub or gallop Abdomen is soft nontender nondistended positive bowel sounds no hepatosplenomegaly Extremities no edema Neuro alert and orientated to 3 - Labs CBC & Chem 7: 09/22/16 08:13 09/22/16 08:13 Assessment and Plan Plan: 1. Acute dyspnea and shortness of breath likely secondary to pneumonia 2. Suspected bibasilar pneumonia most likely healthcare acquired. Currently on broad-spectrum antibiotic. I would consult infectious disease for further evaluation. Sputum culture ordered. 3. Underlying COPD with no evidence of exacerbation 4. Type 2 diabetes mellitus: Blood glucose within acceptable range. A1c 6.6. 5. Status post colostomy for left abdomen with recent acute diverticulitis, bowel perforation, and partial colectomy 6. Generalized anxiety disorder 7. Essential hypertension: Low this morning at 98/54. We'll have nursing staff repeat blood pressure. Place parameters around metoprolol 8. Medical disability PT OT consult placed
--- NOTE | 2016-09-22 10:39 | CONS ---
DATE OF CONSULTATION: 09/21/2016 REASON FOR CONSULTATION: Pneumonia. HISTORY OF PRESENT ILLNESS: The patient is a 75 -year-old female who did have a recent prolonged extended stay at this facility where the patient was admitted with ruptured diverticulitis, status post laparotomy with diverting colostomy. The patient apparently recover from her illness and recently followed with Dr. Siu and she was told that her lungs sound clear and that she was doing well. The patient now has been brought back to the [facility] ER with chief complaints of nausea and episode of vomiting today. Patient did have a few episodes of diarrhea. This apparently has subsided but mostly some nausea and abdominal distention. The patient also had been complaining of some shortness of breath and did have a cough bringing up some yellow sputum. Subsequently, the patient has been evaluated by the ER physician. The patient did have a chest x-ray that has been reported pneumonia may be diaphragmatic paralysis. The patient though did not have any elevated white count or a fever. The patient has been started on broad spectrum antibiotics in the form of Zosyn and Vanco. ID was consulted for further recommendation regarding antibiotic therapy. REVIEW OF SYSTEMS: CONSTITUTIONAL: Positive for weakness and did mention some chills at home, though no fever has been recorded here. EYES: No complaint. ENT: No complaint. RESPIRATORY: As per HPI. CARDIOVASCULAR: No complaint. GENITOURINARY: No complaint. GASTROINTESTINAL: As per HPI. MUSCULOSKELETAL: No complaint. INTEGUMENTARY: No complaint. PSYCHOLOGIC: No complaint. ENDOCRINE: No complaint. NEUROLOGIC: No complaint. Past medical history significant for diabetes mellitus, hypertension, ruptured diverticulitis, generalized anxiety disorder, osteoarthritis, shingles, morbid obesity. PAST SURGICAL HISTORY: Heart catheterization, back surgery, surgery and laparotomy and diverting colostomy. SOCIAL HISTORY: Remote history of smoking; quit back in 1989, no drinking or drug use. FAMILY HISTORY: Mother with history of cancer. ALLERGIES TO MULTIPLE MEDICATIONS INCLUDING CEFUROXIME AND ERYTHROMYCIN, FENTANYL, Although TOLERATED ZOSYN WITHOUT ANY PROBLEM. Medications currently include the patient is on: 1. Tylenol. 2. DuoNeb. 3. Xanax. 4. Aspirin. 5. Vitamin D3. 6. Heparin. 7. Lantus. 8. Reglan. 9. Toprol-XL. 10. Piptazobactam. 11. Vancomycin. On examination, blood pressure is 124/53 with a pulse of 94, temperature 97.4. She is 97% on 2 liters nasal cannula. General description is an elderly female, lying in bed in no distress. No tachypnea or accessory muscle of respiration use. HEENT examination showed no pallor. There is no scleral icterus. Oral mucous membrane is dry. NECK: Trachea central. There is no thyromegaly. LUNGS: Unlabored breath. Clear to auscultation anteriorly. Some decreased breath sounds in the base, no wheeze. HEART: S1, S2. Regular rate and rhythm. ABDOMEN: Soft, no tenderness. Incision is currently clean and healed. EXTREMITIES: No edema of feet. SKIN EXAMINATION: No rash or mass palpable. Neurologically patient is awake, alert and oriented times three. Mood and affect normal. LABS: Hemoglobin is 12.6, white count 5.1. BUN of 8, creatinine 0.64. Urine has been negative. Blood and sputum culture is currently pending. DIAGNOSTIC IMPRESSION AND PLAN: Patient admitted to the hospital with generalized weakness and episode of nausea, vomiting and diarrhea and the patient also did give a history of some rigors and chills and did have a cough with productive of some yellowish sputum where the chest x-ray did show some bibasilar atelectasis; underlying pneumonia cannot entirely excluded, though the patient did not have any fever or elevated white count and abdomen was found to be soft on clinical examination today. PLAN: 1. We will continue the patient on broad spectrum antibiotic to which the patient has responded, while awaiting for the culture to finalize including Zosyn and vancomycin, pharmacy to dose. 2. Follow up on the clinical condition and cultures to further adjust the medication if needed. Thank you for this consultation. Will follow this patient along with you. LES
[2016-09-22 11:45] LABS: Glucose,Whole Blood 113 mg/dL (75-99)
[2016-09-22 17:33] LABS: Glucose,Whole Blood 141 mg/dL (75-99)
[2016-09-22 20:32] LABS: Glucose,Whole Blood 153 mg/dL (75-99)
[2016-09-22] MEDS ORDERED: VANCOMYCIN TROUGH DUE 1 EACH MISC MISCELLANE ONE (22:00)
[2016-09-22] MEDS: INSULIN GLARGINE 100 UNIT/ML 10 ML VIAL SQ SCH (22:59)
[2016-09-22] MEDS: ACETAMINOPHEN TAB 325 MG TAB PO PRN (23:05)
[2016-09-22] MEDS: TEMAZEPAM 30 MG CAP PO PRN (23:07)
[2016-09-23] MEDS: ONDANSETRON 4 MG/2 ML VIAL IVP SCH ×4 (01:08→16:52)
[2016-09-23] MEDS: PIPERACILLIN-TAZOBACTAM 3.375 GM in DEXTROSE/WATER 1 50ML.BAG IVPB SCH ×3 (01:18→17:14)
[2016-09-23] MEDS: ALPRAZolam 0.25 MG TAB PO PRN ×3 (04:23→21:21)
--- NOTE | 2016-09-23 07:30 | PN ---
DATE OF SERVICE: 09/22/2016 Reason for follow up is possible pneumonia. INTERVAL HISTORY: The patient did have low grade fever this afternoon; however, the patient overall breathing has improved. She did have a cough and brining up some yellowish sputum. Denies any chest pain. No further abdominal pain. No nausea, vomiting or any diarrhea. On examination, blood pressure 100/57 with a pulse of 113, temperature of 98.9. She is 92% on room air. General description is an elderly female, lying in bed in no distress. RESPIRATORY SYSTEM: Unlabored breathing. Some coarse breath sounds in the base. No wheeze. HEART: S1, S2. Regular rate and rhythm. ABDOMEN: Soft, no tenderness. LABS: Hemoglobin is 10.6, white count of 4 with a BUN of 6, creatinine 0.7. Blood and sputum cultures currently pending. DIAGNOSTIC IMPRESSION AND PLAN: Patient admitted to hospital with a possible pneumonia. At this time the patient responded to Zosyn and Vanco and that will be continued waiting for the sputum culture to finalize to determine discharge antibiotics. Continue supportive care.
[2016-09-23 07:31] LABS: Glucose,Whole Blood 111 mg/dL (75-99)
[2016-09-23] MEDS: INSULIN LISPRO (humaLOG) 300 UNIT/3 ML VIAL SQ SCH ×3 (07:54→16:52)
[2016-09-23] MEDS: IPRATROPIUM-ALBUTEROL 3 ML NEB INHALATION SCH ×4 (08:11→20:24)
[2016-09-23] MEDS: CHOLECALCIFEROL 1,000 UNIT TAB PO SCH (08:31)
[2016-09-23] MEDS: ASPIRIN 81 MG CHEW PO SCH (08:31)
[2016-09-23] MEDS: HEPARIN SODIUM,PORCINE 5,000 UNIT/ML 1 ML VIAL SQ SCH ×2 (08:31→21:21)
[2016-09-23] MEDS: PANTOPRAZOLE 40 MG TABLET PO SCH (08:31)
[2016-09-23] MEDS: METOPROLOL SUCCINATE (ER) 100 MG TAB.ER.24H PO SCH (08:32)
[2016-09-23] MEDS: ACETAMINOPHEN TAB 325 MG TAB PO PRN (08:36)
[2016-09-23] MEDS: SODIUM CHLORIDE 0.9% 1,000 ML IV SCH ×2 (09:19→21:24)
[2016-09-23 09:56] LABS: Basophils % (A) 0 %; CH 28.5; CHCM 30.5; Eosinophils # (A) 0.2 k/uL (0-0.7); Eosinophils % (A) 5 %; HCT 35.1 % (34.0-46.0); HDW 3.81; HGB 10.8 gm/dL (11.4-16.0); Hypochromasia Marked; Luc # (Auto) 0.13; Luc % (Auto) 3; Lymphocytes % (A) 24 %; MCH 28.9 pg (25.0-35.0); MCHC 30.8 g/dL (31.0-37.0); MCV 93.9 fL (80.0-100.0); Mean Platelet Volume 7.6; Monocytes # (A) 0.3 k/uL (0-1.0); Monocytes % (A) 8 %; Neutrophils # (A) 2.5 k/uL (1.3-7.7); Neutrophils % (A) 60 %; Poikilocytosis Slight; RBC 3.74 m/uL (3.80-5.40); WBC 4.1 k/uL (3.8-10.6); WBC (Perox) 4.27
[2016-09-23 10:11] LABS: Anion Gap 8 mmol/L; Blood Urea Nitrogen 9 mg/dL (7-17); Calcium 8.5 mg/dL (8.4-10.2); Carbon Dioxide 26 mmol/L (22-30); Chloride 111 mmol/L (98-107); Glucose 149 mg/dL (74-99); Magnesium 1.7 mg/dL (1.6-2.3); Non-African American GFR(MDRD) >60 (>60 ml/min/1.73 sqM); Potassium 3.5 mmol/L (3.5-5.1); Sodium 145 mmol/L (137-145)
--- NOTE | 2016-09-23 10:58 | P.PN ---
Subjective Principal diagnosis: Healthcare acquired pneumonia Patient is complaining of dyspnea and shortness of breath this morning. She appeared very anxious. She got up and walked with physical therapy earlier and her oxygen saturation dropped to 81% on room air. Patient returned to bed. She denies any significant cough. No chest pain. Her lungs appear clear to auscultation bilaterally with some rales scattered bibasilar worse on the right. Objective - Vital Signs Vital signs: Vital Signs Temp 97 F L 09/23/16 07:00 Pulse 90 09/23/16 08:23 Resp 19 09/23/16 07:00 BP 136/70 09/23/16 07:00 Pulse Ox 97 09/23/16 10:18 Intake & Output 09/22/16 09/23/16 09/23/16 18:59 06:59 18:59 Other: Voiding Method Bedside Commode # Voids 4 2 - Exam General: The patient is awake and alert, in no distress Eye: there is normal conjunctiva bilaterally. Neck: The neck is supple, there is no JVD. Cardiovascular: Normal S1-S2, no S3-S4, no murmurs. Respiratory: As noted above Gastrointestinal: Abdomen is soft, nontender Musculoskeletal: There is no pedal edema. Neurological:. Speech is normal. Skin: Skin is warm and dry - Labs CBC & Chem 7: 09/23/16 09:23 09/23/16 09:23 Labs: Abnormal Lab Results - Last 24 Hours (Table) 09/22/16 09/22/16 09/22/16 Range/Units 11:43 17:21 20:30 RBC (3.80-5.40) m/uL Hgb (11.4-16.0) gm/dL MCHC (31.0-37.0) g/dL Chloride (98-107) mmol/L Glucose (74-99) mg/dL POC Glucose (mg/dL) 113 H 141 H 153 H (75-99) mg/dL 09/23/16 09/23/16 09/23/16 Range/Units 07:24 09:23 09:23 RBC 3.74 L (3.80-5.40) m/uL Hgb 10.8 L (11.4-16.0) gm/dL MCHC 30.8 L (31.0-37.0) g/dL Chloride 111 H (98-107) mmol/L Glucose 149 H (74-99) mg/dL POC Glucose (mg/dL) 111 H (75-99) mg/dL Assessment and Plan Plan: 1. Acute hypoxic respiratory failure with O2 sat of 81% on room air with ambulation 2. Suspected bibasilar pneumonia most likely healthcare acquired. Currently on broad-spectrum antibiotic. Infectious disease following and adjusting antibiotic. Sputum culture unremarkable. 3. Underlying COPD with no evidence of exacerbation: On bronchodilators 4. Type 2 diabetes mellitus: Blood glucose within acceptable range. A1c 6.6. 5. Status post colostomy for left abdomen with recent acute diverticulitis, bowel perforation, and partial colectomy 6. Generalized anxiety disorder 7. Essential hypertension: Blood pressure well-controlled Today, I reviewed her medication list and lab work results. I would obtain a chest x-ray. I will consult pulmonology for further evaluation. Infectious disease following for antibiotic management. Continue supportive care otherwise. Repeat lab work in the morning. Continue PT/OT. GI and DVT prophylaxis.
[2016-09-23] MEDS ORDERED: VANCOMYCIN 1,250 MG in SODIUM CHLORIDE 0.9% 250 ML IVPB SCH (11:00)
--- NOTE | 2016-09-23 11:06 | XR ---
EXAMINATION TYPE: XR chest 2V DATE OF EXAM: 09/23/2016 10:57 AM COMPARISON: Prior chest x-ray 20 September 2016 HISTORY: Continued shortness of breath, pneumonia TECHNIQUE: Frontal and lateral views of the chest are obtained. FINDINGS: Persistent elevation of the right hemidiaphragm with probable associated atelectasis. No p neumothorax or pleural effusion is evident. Heart is stable. IMPRESSION: Elevated right hemidiaphragm, correlate for paralysis, there is associated atelectasis.
[2016-09-23 12:22] LABS: Glucose,Whole Blood 121 mg/dL (75-99)
--- NOTE | 2016-09-23 13:29 | CDI ---
In responding to this query, please exercise your independent professional judgment. The [facility] Coding Staff and Clinical Documentation Specialists appreciate your assistance in clarifying documentation, maintaining compliance with coding guidelines, accurately documenting patients condition and capturing severity of illness. The fact that a question is asked does not imply that any particular answer is desired or expected. Communication forms are a method of clarifying documentation and are not made part of the Legal Health Record. Thank you in advance for your clarification. Last Revision, April 2015 Juani Richardson [address] [facility] [place] [address] Documentation Clarification Form Date: 09/23/2016 1:15:00 PM From: Debi Fernandez RN, CCDS Admit Date: 09/22/2016 8:50:00 AM Patient Name: Nisha Calix Visit Number: [id number] Dr. Carlos Berg History/Risk Factors: Recent perf diverticulitis with colectomy with colostomy, ALBERT, DM2, HTN, Obesity Clinical Indicators: WBC: 5.1/4/4.1 Left shift: 3.3/2.4/2.5 09/20 CXR:"Basilar atelectasis, correlate to exclude pneumonia. There may be diaphragmatic paralysis." 09/23 Attending Progress Note: Lung/Breathing assessment: "Her lungs appear clear to auscultation bilaterally with some rales scattered bibasilar worse on the right. 09/23 Attending Progress Note: "Suspected bibasilar pneumonia most likely healthcare acquired. Currently on broad-spectrum antibiotic. Infectious disease following and adjusting antibiotic. Sputum culture unremarkable." Treatment: Antibiotics: zosyn 3.375 gm IVPB Q 8 hrs, Vanco 1250 mg IVPB Q 12 hrs O2: 2L nasal cannula Breathing TX: Dueoneb In order to capture the severity of condition, please clarify if the condition signifies and you are treating for: Aspiration Pneumonia, identify if: Due to solids or liquids Bacterial Pneumonia, specify causal organism (if known) Gram Negative Pneumonia Due to Strep Due to Staph Due to E. Coli Other bacteria (specify) Viral Pneumonia, specify casual organism (if known) Unable to determine Link any associated conditions to the pneumonia: Influenza with secondary gram negative pneumonia Sepsis due to pneumonia Acute respiratory failure due to pneumonia Other, please specify Please document in your progress notes and discharge summary in order to capture severity of illness and risk of mortality. Include clinical findings that support your diagnosis. FYI: Press F11 to launch patient chart. Place X here if this finding has no clinical significance, is not applicable or if you are not able to provide any additional documentation. Possibly gram-negative pneumonia I will update and discharge summary MTDD
[2016-09-23 16:46] LABS: Glucose,Whole Blood 116 mg/dL (75-99)
[2016-09-23 21:09] LABS: Glucose,Whole Blood 148 mg/dL (75-99)
[2016-09-23] MEDS: INSULIN GLARGINE 100 UNIT/ML 10 ML VIAL SQ SCH (21:21)
--- NOTE | 2016-09-23 22:31 | PN ---
DATE OF SERVICE: 09/23/2016 REASON FOR FOLLOWUP: Pneumonia. INTERVAL HISTORY: The patient did have a low-grade fever of 100 last night. The patient was also noticed to have slight hypoxemia with oxygen saturation down to 86%. Oxygen through the nasal cannula has been reapplied. The patient did have a chest x-ray this morning which showed elevated right hemidiaphragm and associated atelectasis. The patient's breathing has slightly improved. She did have a cough, bringing up mostly clear sputum. The patient denies having any chest pain. No abdominal pain. No nausea, vomiting or any diarrhea. On examination, blood pressure is 122/57 with a pulse of 88, temperature 96.2. She is 96% on 2 L nasal cannula. General description is an elderly female lying in bed in no distress. RESPIRATORY SYSTEM: Unlabored breathing. Some decreased breath sounds at the base. No wheeze. HEART: S1, S2. Regular rate and rhythm. ABDOMEN: Soft. No tenderness. LABS: Hemoglobin is 10.8, white count of 4.1 with a BUN of 9, creatinine 0.79. Sputum has been normal respiratory abdullahi. DIAGNOSTIC IMPRESSION AND PLAN: Patient admitted to hospital with difficulty breathing; did have a cough with some yellow sputum. Sputum is currently negative for any resistant pathogen. Patient is currently being treated with Zosyn and vancomycin. As no MRSA has been grown, will discontinue the vancomycin, keep on the Zosyn. Patient to finish therapy with p.o. Avelox for another 7 to 10 days. Continue supportive care. [facility]
[2016-09-23] MEDS: TEMAZEPAM 30 MG CAP PO PRN (23:25)
[2016-09-24] MEDS: ONDANSETRON 4 MG/2 ML VIAL IVP SCH ×3 (00:13→09:18)
[2016-09-24] MEDS: PIPERACILLIN-TAZOBACTAM 3.375 GM in DEXTROSE/WATER 1 50ML.BAG IVPB SCH ×2 (00:13→09:17)
[2016-09-24] MEDS: SODIUM CHLORIDE 0.9% 1,000 ML IV SCH (05:56)
[2016-09-24 07:16] LABS: Glucose,Whole Blood 99 mg/dL (75-99)
[2016-09-24] MEDS: IPRATROPIUM-ALBUTEROL 3 ML NEB INHALATION SCH ×2 (07:43→12:01)
[2016-09-24 07:52] VITALS: BP 138/82; RESP 20; TEMP 97.6
[2016-09-24] MEDS: INSULIN LISPRO (humaLOG) 300 UNIT/3 ML VIAL SQ SCH ×2 (08:05→12:29)
[2016-09-24 09:14] LABS: Basophils % (A) 1 %; CH 28.1; CHCM 29.6; Eosinophils # (A) 0.2 k/uL (0-0.7); Eosinophils % (A) 4 %; HCT 35.9 % (34.0-46.0); HGB 10.8 gm/dL (11.4-16.0); Hypochromasia Marked; Luc # (Auto) 0.11; Luc % (Auto) 2; Lymphocytes % (A) 23 %; MCH 28.7 pg (25.0-35.0); MCHC 30.1 g/dL (31.0-37.0); MCV 95.4 fL (80.0-100.0); Mean Platelet Volume 7.9; Monocytes # (A) 0.3 k/uL (0-1.0); Monocytes % (A) 6 %; Neutrophils # (A) 2.9 k/uL (1.3-7.7); Neutrophils % (A) 65 %; Poikilocytosis Slight; RBC 3.77 m/uL (3.80-5.40); RDW 15.1 % (11.5-15.5); WBC 4.5 k/uL (3.8-10.6); WBC (Perox) 4.42
[2016-09-24] MEDS: PANTOPRAZOLE 40 MG TABLET PO SCH (09:17)
[2016-09-24] MEDS: HEPARIN SODIUM,PORCINE 5,000 UNIT/ML 1 ML VIAL SQ SCH (09:17)
[2016-09-24] MEDS: ALPRAZolam 0.25 MG TAB PO PRN (09:17)
[2016-09-24] MEDS: METOPROLOL SUCCINATE (ER) 100 MG TAB.ER.24H PO SCH (09:17)
[2016-09-24] MEDS: ASPIRIN 81 MG CHEW PO SCH (09:17)
[2016-09-24] MEDS: CHOLECALCIFEROL 1,000 UNIT TAB PO SCH (09:18)
[2016-09-24 09:48] LABS: Anion Gap 8 mmol/L; Blood Urea Nitrogen 6 mg/dL (7-17); Calcium 8.8 mg/dL (8.4-10.2); Carbon Dioxide 24 mmol/L (22-30); Chloride 111 mmol/L (98-107); Glucose 189 mg/dL (74-99); Magnesium 1.7 mg/dL (1.6-2.3); Non-African American GFR(MDRD) >60 (>60 ml/min/1.73 sqM); Potassium 3.4 mmol/L (3.5-5.1); Sodium 143 mmol/L (137-145)
[2016-09-24 12:06] LABS: Glucose,Whole Blood 99 mg/dL (75-99)
--- NOTE | 2016-09-24 12:40 | P.DS ---
Providers Date of admission: 09/22/16 08:50 Expected date of discharge: 09/24/16 Attending physician: Carlos Berg Consults: 09/23/16 10:32 Consult Physician Routine Consulting Provider: Omid Wong Consult Reason/Comments: pneum, hypoxia Do you want consulting provider notified?: Yes Primary care physician: [facility] Course: 1. Acute hypoxic respiratory failure: Resolved with incentive spirometer 2. Suspected bibasilar pneumonia most likely gram-negative. Currently on broad -spectrum antibiotic. Infectious disease following. Sputum culture unremarkable. Plan to finish 7 days course of Avelox 3. Underlying COPD with no evidence of exacerbation: On bronchodilators 4. Type 2 diabetes mellitus: Blood glucose within acceptable range. A1c 6.6. 5. Status post colostomy for left abdomen with recent acute diverticulitis, bowel perforation, and partial colectomy 6. Generalized anxiety disorder 7. Essential hypertension: Blood pressure well-controlled 8. Right diaphragm paralysis Patient Condition at Discharge: Stable Plan - Discharge Summary New Discharge Prescriptions: RX: Albuterol Nebulized [Ventolin Nebulized] 2.5 mg INHALATION RT-Q4H PRN #30 nebu PRN Reason: Shortness Of Breath RX: Metoprolol Succinate (ER) [Toprol XL] 100 mg PO DAILY #30 tab.er.24h Moxifloxacin HCl [Avelox] 400 mg PO DAILY #7 tablet Discharge Medication List RX: Aspirin 81 mg PO DAILY 11/20/13 [History] RX: Cholecalciferol [Vitamin D3] 1,000 unit PO DAILY 03/19/15 [History] RX: Insulin Glargine [Lantus] 15 unit SQ HS vial 09/05/16 [Rx] RX: Ipratropium-Albuterol Nebulize [Duoneb 0.5 mg-3 mg/3 ml Soln] 3 ml INHALATION RT-QID ampul.neb 09/05/16 [Rx] RX: INSULIN LISPRO (humaLOG) [humaLOG (formulary)] See Protocol SQ AC-TID [History] RX: Metoclopramide [Reglan] 10 mg PO ACHS PRN 09/20/16 [History] RX: Temazepam [Restoril] 30 mg PO HS PRN 09/20/16 [History] Moxifloxacin HCl [Avelox] 400 mg PO DAILY #7 tablet 09/24/16 [Rx] RX: Albuterol Nebulized [Ventolin Nebulized] 2.5 mg INHALATION RT-Q4H PRN #30 nebu 09/24/16 [Rx] RX: Metoprolol Succinate (ER) [Toprol XL] 100 mg PO DAILY #30 tab.er.24h [Rx] Follow up Appointment(s)/Referral(s): [facility], [NON-STAFF] - Carlos Berg MD [Primary Care Provider] - 1-2 days
[2016-09-24 13:32] VITALS: PULSE 98
--- NOTE | 2016-09-24 15:56 | P.CNPUL ---
History of Present Illness Consult date: 09/24/16 Requesting physician: Carlos Berg Reason for consult: abnormal CXR/CT (Right hemidiaphragm paralysis.) Chief complaint: Nausea, weakness History of present illness: This is a pleasant 75-year-old female patient who follows with Dr. Berg as her primary care physician. She has a history of diabetes mellitus, hypertension, morbid obesity, shingles, degenerative arthritis, generally generalized anxiety disorder. She was admitted here on 08/21/2016 with complaints of increasing shortness of breath cough and congestion. At that time there was concern regarding possible right lower lobe pneumonia. She was found to have a right hemidiaphragmatic elevation. A sniff test was ordered by Dr. Nelson and the results did show paralyzed right hemidiaphragm however there was pneumoperitoneum noted as well. Dr. Siu was consulted and performed exploratory laparotomy and Maloney's procedure for ruptured diverticuli. He recovered well from that admission then discharge 09/05/2016 to [facility]. From there she was discharged home recently. She had developed poor appetite, cough and weakness. She presented here 09/20/2016 for the same. A chest x-ray revealed continued for analysis of the right hemidiaphragm. We had seen the patient consultation today 2016. Currently she is seen on the regular medical floor. She is awake and alert in no acute distress. She denies any worsening shortness of breath, cough or congestion. She is maintaining good O2 saturations in the low 90s on room air. No pulmonary complaints. Sputum culture reveals no growth to date, blood cultures reveal no growth to date. Afebrile. No leukocytosis. Review of Systems 14 point review of system was conducted. All negative other than as mentioned in the HPI. Past Medical History Past Medical History: Diabetes Mellitus, Hypertension Additional Past Medical History / Comment(s): Obesity, hiatal hernia, shingles, diabetes mellitus, hypertension, degenerative arthritis, generalized anxiety disorder. History of Any Multi-Drug Resistant Organisms: None Reported Past Surgical History: Back Surgery, Heart Catheterization Additional Past Surgical History / Comment(s): mult back surgeries-back and neck fusions, epidural spinal shots for pain control, bilateral cataract surgeries Past Anesthesia/Blood Transfusion Reactions: Previous Problems w/ Anesthesia Additional Past Anesthesia/Blood Transfusion Reaction / Comment(s): stopped breathing during back surgery from being "over medicated" - had to get narcan Past Psychological History: Anxiety Smoking Status: Former smoker Past Alcohol Use History: None Reported Additional Past Alcohol Use History / Comment(s): started smoking at age 17, smoked 1 pp week, quit 1989 Past Drug Use History: None Reported - Past Family History Brother(s) Family Medical History: Cancer Medications and Allergies Home Medications Medication Instructions Recorded Confirmed Type Aspirin 81 mg PO DAILY 11/20/13 09/20/16 History Cholecalciferol [Vitamin D3] 1,000 unit PO DAILY 03/19/15 09/20/16 History INSULIN LISPRO (humaLOG) [humaLOG See Protocol SQ AC-TID 09/20/16 09/20/16 History (formulary)] Metoclopramide [Reglan] 10 mg PO ACHS PRN 09/20/16 09/20/16 History Temazepam [Restoril] 30 mg PO HS PRN 09/20/16 09/20/16 History Allergies Allergy/AdvReac Type Severity Reaction Status Date / Time shellfish derived [Shellfish] Allergy Severe Anaphylaxis Verified 09/20/16 19:16 morphine Allergy Intermediate Rash/Hives Verified 09/20/16 19:16 cefuroxime axetil Allergy Unknown Verified 09/20/16 19:16 [From Ceftin] codeine Allergy Unknown Verified 09/20/16 19:16 erythromycin base Allergy Unknown Verified 09/20/16 19:16 [From E-Mycin] fentanyl Allergy Unknown Verified 09/20/16 19:16 hydrocodone bitartrate Allergy Unknown Verified 09/20/16 19:16 [From Lortab] lisinopril Allergy anxiety Verified 09/20/16 19:16 meperidine HCl [From Demerol] Allergy Unknown Verified 09/20/16 19:16 milk Allergy Unknown Verified 09/20/16 19:16 oxycodone HCl [From Percocet] Allergy Unknown Verified 09/20/16 19:16 SEAFOOD Allergy Severe Anaphylaxis Uncoded 09/20/16 18:53 Physical Exam Vitals: Vital Signs Temp Pulse Pulse Resp BP BP Pulse Ox 09/24/16 13:13 09/24/16 12:12 86 09/24/16 12:01 88 09/24/16 08:00 98 20 09/24/16 07:53 88 09/24/16 07:43 88 09/24/16 07:00 97.6 F 98 20 138/82 94 L 09/23/16 23:00 97.5 F L 99 18 131/68 93 L 09/23/16 20:47 92 09/23/16 20:24 92 09/23/16 16:05 88 09/23/16 16:00 90 21 09/23/16 15:51 88 Pulse Ox Pulse Ox Pulse Ox 09/24/16 13:13 91 L 91 L 92 L 09/24/16 12:12 09/24/16 12:01 09/24/16 08:00 09/24/16 07:53 09/24/16 07:43 09/24/16 07:00 09/23/16 23:00 09/23/16 20:47 09/23/16 20:24 09/23/16 16:05 09/23/16 16:00 09/23/16 15:51 Intake and Output 09/24/16 09/24/16 09/24/16 06:59 14:59 22:59 Intake Total 480 Output Total 150 Balance 330 Intake: Oral 480 Output: Stool 150 Other: Voiding Method Toilet Bedside Commode # Voids 2 3 # Bowel Movements 0 GENERAL EXAM: Morbidly obese. Alert, active, comfortable in no apparent distress. HEAD: Normocephalic. EYES: Normal reaction of pupils, equal size. NOSE: Clear with pink turbinates. THROAT: No erythema or exudates. NECK: No masses, no JVD. CHEST: No chest wall deformity. LUNGS: Equal air entry with no crackles, wheeze, rhonchi. Diminished in the right posterior base. CVS: S1 and S2 normal with no audible mumurs, regular rhythm. ABDOMEN: No hepatosplenomegaly, normal bowel sounds, no guarding or rigidity. SPINE: No scoliosis or deformity SKIN: No rashes CENTRAL NERVOUS SYSTEM: No focal deficits, tone is normal in all 4 extremities. Extremities: There is trace peripheral edema. No clubbing, no cyanosis. Peripheral pulses are intact. Results - Laboratory Findings CBC and BMP: 09/24/16 08:52 09/24/16 08:52 Abnormal lab findings: Abnormal Labs 09/22/16 09/22/16 09/22/16 11:43 17:21 20:30 RBC Hgb MCHC Potassium Chloride BUN Glucose POC Glucose (mg/dL) 113 H 141 H 153 H 09/23/16 09/23/16 09/23/16 07:24 09:23 09:23 RBC 3.74 L Hgb 10.8 L MCHC 30.8 L Potassium Chloride 111 H BUN Glucose 149 H POC Glucose (mg/dL) 111 H 09/23/16 09/23/16 09/23/16 12:19 16:45 21:07 RBC Hgb MCHC Potassium Chloride BUN Glucose POC Glucose (mg/dL) 121 H 116 H 148 H 09/24/16 09/24/16 08:52 08:52 RBC 3.77 L Hgb 10.8 L MCHC 30.1 L Potassium 3.4 L Chloride 111 H BUN 6 L Glucose 189 H POC Glucose (mg/dL) - Diagnostic Findings Chest x-ray: image reviewed (Right hemidiaphragm paralysis) Assessment and Plan Plan: Impression: #1 dyspnea secondary to atelectasis in the right lower lobe with history of right jamee-diaphragm paralysis. No clear indication of pneumonia. #2 Acute hypoxic respiratory failure secondary to above, improved. Maintain O2 saturations in the 90s on room air. #3 Chronic obstructive pulmonary disease, currently inactive and stable. #4 Recent admission for an acute diverticulitis with bowel perforation requiring exploratory laparotomy and Maloney's procedure status post colostomy. #5 Diabetes mellitus, type II. Para graph #6 Hypertension. #7 Generalized anxiety disorder. #8 Obesity. Plan: The patient was seen and evaluated by Dr. Wong. Her chest x-ray and labs were reviewed. We are aware of the right hemidiaphragm paralysis. She will follow- up with Dr. Bowen in our office. She may require surgical intervention and we will send her to Dr. Alin Sadler at [facility]. In the interim we'll continue to optimize her pulmonary medications. She is again educated regarding the importance of increased use of her incentive spirometer and cough and deep breathing exercises. She is cleared for discharge from the pulmonary standpoint. Time with Patient: Greater than 30
--- NOTE | 2016-09-24 18:55 | PN ---
DATE OF SERVICE: 09/24/2016 Reason for Follow-up is pneumonia. INTERVAL HISTORY: The patient seen on the rounds earlier this afternoon. Patient had been breathing comfortably on room air. She did walk around without any difficulty. The patient denies any significant chest pain, occasional cough. No abdominal pain. No diarrhea. On examination, blood pressure is 138/82 with a pulse of 98, temperature 97.6, she is 94% on room air. General description is an elderly female, lying in bed in no distress. RESPIRATORY SYSTEM: Unlabored breathing. Some decreased breath sounds at the base. No wheeze. HEART: S1, S2. Regular rate and rhythm. ABDOMEN: Soft, no tenderness. LABS: Hemoglobin is 10.5 with a white count 4.5, BUN of 6, creatinine 0.81. DIAGNOSTIC IMPRESSION AND PLAN: The patient admitted to hospital with pneumonia, the patient with plan to finish therapy with oral Avelox 400mg x 7 days discussed with attending. Continue supportive care. MTDD
== END 2016-09-24 15:11 | disposition home health service (06) | DRG 190 ==
LOC: EC 18:43 → 4MS4W 21:13 → OBSVTOIN 09-22 08:50
PROVIDERS: ADMIT Internal Medicine; ATTEND Internal Medicine
DX: J44.0 Chronic obstructive pulmonary disease with (acute) lower respiratory infection (principal); J15.6 Pneumonia due to other Gram-negative bacteria; J96.01 Acute respiratory failure with hypoxia; E11.9 Type 2 diabetes mellitus without complications; K66.8 Other specified disorders of peritoneum; E66.9 Obesity, unspecified; F41.1 Generalized anxiety disorder; I10 Essential (primary) hypertension; J98.6 Disorders of diaphragm; Y95 Nosocomial condition; Z79.4 Long term (current) use of insulin; Z79.82 Long term (current) use of aspirin; Z80.9 Family history of malignant neoplasm, unspecified; Z87.891 Personal history of nicotine dependence; Z93.3 Colostomy status; Z79.899 Other long term (current) drug therapy
CPT/HCPCS: 36415; 71020; 74000; 80048; 80053; 80202; 81001; 82150; 83036; 83605; 83690; 83735; 85025; 87040; 87070; 87205; 94640; 94760; 96361; 96365; 96366; 96367; 96368; 96372; 96375; 96376; 99285

== ENCOUNTER 2016-12-29 21:33 | Emergency (ER) | payer MEDICARE ==
[2016-12-29 21:44] VITALS: BP 161/68; PULSE 91; RESP 20; TEMP 98.6
[2016-12-29 21:50] LABS: Glucose,Whole Blood 110 mg/dL (75-99)
[2016-12-29] MEDS ORDERED: ONDANSETRON ODT 4 MG TAB PO STA (22:01)
[2016-12-29 22:18] LABS: Glucose,Whole Blood 154 mg/dL (75-99)
--- NOTE | 2016-12-29 22:18 | ED ---
General Adult HPI - General Chief complaint: Recheck/Abnormal Lab/Rx Stated complaint: diabetic/sugar problem Time Seen by Provider: 12/29/16 21:49 Source: patient, RN notes reviewed Mode of arrival: ambulatory Limitations: no limitations - History of Present Illness Initial comments: Patient 76-year-old female who presents emergency room today with chief complaint of low blood sugar. Patient does admit that she began taking her janumet 3 days ago. She does admit that she was on this in the past. She states she was on a sliding scale most recently. She should not family doctor put her back on this medication and told her to stop the insulin. States that she's been taking this medication so checking her sugars and had a blood sugar of 89 at home. She states that she confused and thought that she was close to take insulin and then realized that this would make her blood sugar lower. She states she took 2 units of Humalog. She admits that since been back on this Janumet that she has felt nauseated past over the past 3 days. Denies complaints. Patient denies any recent fever, chills, shortness of breath, chest pain, back pain, abdominal pain, nausea or vomiting, numbness or tingling, dysuria or hematuria, constipation or diarrhea, headaches or visual changes, or any other complaints. - Related Data Home Medications Medication Instructions Recorded Confirmed Aspirin 81 mg PO DAILY 11/20/13 09/20/16 Cholecalciferol [Vitamin D3] 1,000 unit PO DAILY 03/19/15 09/20/16 INSULIN LISPRO (humaLOG) [humaLOG See Protocol SQ AC-TID 09/20/16 09/20/16 (formulary)] Metoclopramide [Reglan] 10 mg PO ACHS PRN 09/20/16 09/20/16 Temazepam [Restoril] 30 mg PO HS PRN 09/20/16 09/20/16 Previous Rx's Medication Instructions Recorded Insulin Glargine [Lantus] 15 unit SQ HS vial 09/05/16 Ipratropium-Albuterol Nebulize 3 ml INHALATION RT-QID ampul.neb 09/05/16 [Duoneb 0.5 mg-3 mg/3 ml Soln] Albuterol Nebulized [Ventolin 2.5 mg INHALATION RT-Q4H PRN #30 09/24/16 Nebulized] nebu Metoprolol Succinate (ER) [Toprol 100 mg PO DAILY #30 tab.er.24h 09/24/16 XL] Moxifloxacin HCl [Avelox] 400 mg PO DAILY #7 tablet 09/24/16 Allergies Allergy/AdvReac Type Severity Reaction Status Date / Time shellfish derived [Shellfish] Allergy Severe Anaphylaxis Verified 12/29/16 21:43 morphine Allergy Intermediate Rash/Hives Verified 12/29/16 21:43 cefuroxime axetil Allergy Unknown Verified 12/29/16 21:43 [From Ceftin] codeine Allergy Unknown Verified 12/29/16 21:43 erythromycin base Allergy Unknown Verified 12/29/16 21:43 [From E-Mycin] fentanyl Allergy Unknown Verified 12/29/16 21:43 hydrocodone bitartrate Allergy Unknown Verified 12/29/16 21:43 [From Lortab] lisinopril Allergy anxiety Verified 12/29/16 21:43 meperidine HCl [From Demerol] Allergy Unknown Verified 12/29/16 21:43 milk Allergy Unknown Verified 12/29/16 21:43 oxycodone HCl [From Percocet] Allergy Unknown Verified 12/29/16 21:43 SEAFOOD Allergy Severe Anaphylaxis Uncoded 12/29/16 21:43 Review of Systems ROS Statement: Those systems with pertinent positive or pertinent negative responses have been documented in the HPI. ROS Other: All systems not noted in ROS Statement are negative. Past Medical History Past Medical History: Diabetes Mellitus, Hypertension Additional Past Medical History / Comment(s): Obesity, hiatal hernia, shingles, diabetes mellitus, hypertension, degenerative arthritis, generalized anxiety disorder. History of Any Multi-Drug Resistant Organisms: None Reported Past Surgical History: Back Surgery, Heart Catheterization Additional Past Surgical History / Comment(s): mult back surgeries-back and neck fusions, epidural spinal shots for pain control, bilateral cataract surgeries Past Anesthesia/Blood Transfusion Reactions: Previous Problems w/ Anesthesia Additional Past Anesthesia/Blood Transfusion Reaction / Comment(s): stopped breathing during back surgery from being "over medicated" - had to get narcan Past Psychological History: Anxiety Smoking Status: Former smoker Past Alcohol Use History: None Reported Past Drug Use History: None Reported - Past Family History Brother(s) Family Medical History: Cancer General Exam - General Exam Comments Initial Comments: General: The patient is awake and alert, in no distress, and does not appear acutely ill. Eye: Pupils are equal, round and reactive to light, extra-ocular movements are intact. No nystagmus. There is normal conjunctiva bilaterally. No signs of icterus. Ears, nose, mouth and throat: There are moist mucous membranes and no oral lesions. Neck: The neck is supple, there is no tenderness or JVD. Cardiovascular: There is a regular rate and rhythm. No murmur, rub or gallop is appreciated. Respiratory: Lungs are clear to auscultation, respirations are non-labored, breath sounds are equal. No wheezes, stridor, rales, or rhonchi. Gastrointestinal: Soft, non-distended, non-tender abdomen without masses or organomegaly noted. There is no rebound or guarding present. No CVA tenderness. Bowel sounds are unremarkable. Musculoskeletal: Normal ROM, no tenderness. Strength 5/5. Sensation intact. Pulses equal bilaterally 2+. Neurological: A&O x 3. CN II-XII intact, There are no obvious motor or sensory deficits. Coordination appears grossly intact. Speech is normal. Skin: Skin is warm and dry and no rashes or lesions are noted. Psychiatric: Cooperative, appropriate mood & affect, normal judgment. Limitations: no limitations Course Vital Signs 12/29/16 21:40 Temperature 98.6 F Pulse Rate 91 Respiratory 20 Rate Blood Pressure 161/68 O2 Sat by Pulse 97 Oximetry Medical Decision Making - Medical Decision Making Patient reexamined at this time shows no signs of distress. Patient's repeat blood sugars 154. Patient feeling well here in emergency room. Denies any complaints at this time. Patient did take 2 units of Humalog approximately 9: 15. At this time patient will be discharged home. Advised to follow-up the family doctor tomorrow discussed treatment options for her diabetes. Advised return if any symptoms increase or worsen or for any other concerns. - Lab Data Lab Results 12/29/16 12/29/16 Range/Units 21:45 22:16 POC Glucose (mg/dL) 110 H 154 H (75-99) mg/dL POC Glu Religious Education Director ID Bart Santamaria Nicole Disposition Clinical Impression: Diabetes mellitus Disposition: HOME SELF-CARE Condition: Good Instructions: Hypoglycemia in a Person with Diabetes (ED) Additional Instructions: Please follow-up family doctor tomorrow and discuss options of treatment for your diabetes. Please return here to emergency room if any symptoms increase or worsen or for any other concerns. Referrals: Carlos Berg MD [Primary Care Provider] - 1-2 days Time of Disposition: 22:37
== END 2016-12-29 22:40 | disposition home or self-care (01) ==
LOC: EC 21:33
DX: E11.9 Type 2 diabetes mellitus without complications (principal); R11.0 Nausea; E66.9 Obesity, unspecified; Z87.891 Personal history of nicotine dependence; Z79.4 Long term (current) use of insulin; Z79.82 Long term (current) use of aspirin; Z79.899 Other long term (current) drug therapy; Z88.1 Allergy status to other antibiotic agents; Z88.5 Allergy status to narcotic agent; Z88.8 Allergy status to other drugs, medicaments and biological substances; Z91.011 Allergy to milk products; Z91.013 Allergy to seafood
CPT/HCPCS: 36415; 99284

== ENCOUNTER → 2017-02-10 | Outpatient (CLI) | payer MEDICARE ==
[2017-02-10 14:54] LABS: Blood Urea Nitrogen 16 mg/dL (7-17); Non-African American GFR(MDRD) >60 (>60 ml/min/1.73 sqM); Potassium 4.3 mmol/L (3.5-5.1)
== END | disposition home or self-care (01) ==
LOC: LABPAT 13:02
PROVIDERS: ATTEND Anesthesiology
DX: Z01.818 Encounter for other preprocedural examination (principal); K43.3 Parastomal hernia with obstruction, without gangrene; Z98.890 Other specified postprocedural states
CPT/HCPCS: 82565; 84132; 84520

== ENCOUNTER → 2017-02-10 | Outpatient (CLI) | payer MEDICARE ==
[2017-02-10 14:42] LABS: Basophils % (A) 1 %; CH 27.6; CHCM 32.6; Eosinophils # (A) 0.1 k/uL (0-0.7); Eosinophils % (A) 3 %; HCT 43.4 % (34.0-46.0); HDW 2.93; HGB 14.7 gm/dL (11.4-16.0); Luc # (Auto) 0.15; Luc % (Auto) 4; Lymphocytes # (A) 1.4 k/uL (1.0-4.8); Lymphocytes % (A) 38 %; MCH 28.8 pg (25.0-35.0); MCHC 33.9 g/dL (31.0-37.0); MCV 84.9 fL (80.0-100.0); Mean Platelet Volume 8.1; Monocytes # (A) 0.4 k/uL (0-1.0); Monocytes % (A) 10 %; Neutrophils # (A) 1.7 k/uL (1.3-7.7); Neutrophils % (A) 45 %; RBC 5.11 m/uL (3.80-5.40); RDW 15.1 % (11.5-15.5); WBC 3.7 k/uL (3.8-10.6); WBC (Perox) 3.83
== END | disposition home or self-care (01) ==
LOC: LABWHC1 12:59
PROVIDERS: ATTEND Dermatology
DX: L28.1 Prurigo nodularis (principal); L65.0 Telogen effluvium
CPT/HCPCS: 36415; 82306; 82652; 84439; 84443; 84450; 84460; 85025

== ENCOUNTER 2017-02-12 06:39 | Inpatient (IN) | payer MEDICARE ==
[2017-02-05 12:21] VITALS: BMI 29.0
[~2017-02-12 06:39] MED LIST: CLINDAMYCIN 900 MG in DEXTROSE 5% IN WATER 50 ML IVPB ONE; DEXAMETHASONE SOD PHOSPHATE 10 MG/ML 1 ML VIAL IV ONE; GENTAMICIN 280 MG in SODIUM CHLORIDE 0.9% 100 ML IVPB ONE; LACTATED RINGERS 1,000 ML IV SCH; MIDAZOLAM 2 MG/2 ML VIAL IV PRN; ONDANSETRON 4 MG/2 ML VIAL IVP ONE; SCOPOLAMINE 1.5MG/72HR PATCH TRANSDERM ONE
[2017-02-12] MEDS ORDERED: LIDOCAINE 1% 20 ML VIAL (10MG/ML) FOR IV START INTRADERMA ONE (07:31)
[2017-02-12 07:36] LABS: Glucose,Whole Blood 126 mg/dL (75-99)
[2017-02-12] MEDS ORDERED: PHENYLEPHRINE-0.9% NACL SYG 1 MG/10 ML SYRINGE ONE (08:17)
[2017-02-12] MEDS ORDERED: HYDROmorphone (PF) 1 MG/ML ONE (08:17)
[2017-02-12] MEDS ORDERED: NEOSTIGMINE 1 MG/ML 10 ML VIAL ONE (08:17)
[2017-02-12] MEDS ORDERED: ePHEDrine SULFATE/0.9% NACL/PF 50 MG/5 ML SYRINGE IV ONE (08:17)
[2017-02-12] MEDS ORDERED: MIDAZOLAM 2 MG/2 ML VIAL ONE (08:17)
[2017-02-12] MEDS ORDERED: ONDANSETRON 4 MG/2 ML VIAL ONE (08:17)
[2017-02-12] MEDS ORDERED: PROPOFOL 10 MG/ML 20 ML VIAL IV ONE (08:17)
[2017-02-12] MEDS ORDERED: SUCCINYLCHOLINE CHLORIDE 100 MG/5 ML SYR IV ONE (08:17)
[2017-02-12] MEDS ORDERED: GLYCOPYRROLATE 0.2 MG/ML 2 ML VIAL ONE (08:17)
[2017-02-12] MEDS ORDERED: LIDOCAINE 1% INJ 10MG/ML (20 ML MDV) ONE (08:17)
[2017-02-12] MEDS ORDERED: VECURONIUM 10 MG VIAL IV ONE (08:17)
[2017-02-12] MEDS ORDERED: LACTATED RINGERS 1,000 ML IV ONE ×5 (09:00→12:37)
[2017-02-12] MEDS ORDERED: BUPIVACAINE-EPI 0.5%-1:200,000 10 ML VIAL SQ ONE (10:14)
[2017-02-12 10:54] LABS: Glucose,Whole Blood 178 mg/dL (75-99)
[2017-02-12] MEDS ORDERED: ALBUTEROL NEBULIZED 2.5 MG/3 ML INHALATION PRN (12:34)
[2017-02-12] MEDS ORDERED: ALPRAZolam 0.5 MG TAB PO PRN (12:34)
--- NOTE | 2017-02-12 12:34 | P.OP ---
Date of Procedure: 02/12/17 Preoperative Diagnosis: Colostomy in place, peristomal hernia Postoperative Diagnosis: Same, intra-abdominal adhesions Procedure(s) Performed: Laparoscopy, laparotomy with reversal of colostomy, mobilization of splenic flexure Implants: Anesthesia: DEANAA Surgeon: Stephanie Siu Estimated Blood Loss (ml): 200 Pathology: other (End of colostomy and anastomotic doughnuts) Condition: stable Disposition: PACU Indications for Procedure: The patient is status post Maloney's procedure for perforated diverticulitis. She also had a parastomal hernia. Operative Findings: The patient's taken the operative suite where she is prepped and draped in the usual sterile manner under general endotracheal anesthetic. An incision is made to the right of the midline. A balloon trocar was placed and pneumoperitoneum was established with CO2 gas. Sites are chosen for accessory trochars needs are placed through small skin incisions. She had adhesions of the omentum to the midline which were taken down with harmonic scissors. She had dense loops of small bowel in the pelvis. She was placed into Trendelenburg position and these were tediously dissected free. The distal end was seen. It was fairly scarred in. It was tediously dissected free. Segment was then resected with a YVONNE stapler. The specimen was placed into a specimen retrieval bag. Part of the descending and sigmoid colon was then mobilized with harmonic scissors. The pneumoperitoneum was released. The trochars were covered with drapes. The ostomy is then dissected free from the subcutaneous tissues. A site is chosen for placement of the pursestring device. This is then placed and fired. A small segment is resected. A 29 EEA anvil was then placed into the proximal segment and the pursestring is tied down. The bowel is dropped into the abdominal cavity. Gloves were changed. The fascial and peritoneal layers were then dissected free at the ostomy site. The posterior fascia and peritoneum were closed with 0 Vicryl. Serial was covered with a lap pad. The pneumoperitoneum was reestablished. I attempted to bring the sigmoid colon down and there was too much tension. I tried to dissect a little more laparoscopically but it was fairly densely adherent. Therefore the pneumoperitoneum was released. The trochars were removed. A small incision was made near the umbilicus. Just large enough to put my hand in and I tried to finger dissect up there and was very adherent. Therefore the midline incision was extended. The hepatic flexure was taken down with either harmonic scissors or cautery. The omentum is dissected free from the mid to distal transverse colon. This allowed adequate mobilization to bring the proximal colon into the pelvis. She is in place back into Trendelenburg and the small bowel loops were packed out of the way. A long below and passed a sizer which was easily felt by the public health assistant. A EEA stapler was then passed per rectum and the attachment prong was advanced until the orange portion was visualized. The anvil was attached until there was a click. The stapler was then closed until the indicator was then in the mid green portion. It was held for a minute. Fired and then derotated and removed. There are complete proximal and distal donuts. A sigmoidoscope was inserted and sterile water was placed into the pelvis. The bowel was insufflated several times and was noted to be airtight. Gloves and gowns were changed. The irrigant was aspirated. A drain was placed into the pelvis. The fashion peritoneum in the midline was closed with 1 PDS. The trocar sites were closed with 0 Vicryl. The skin was loosely approximated with santosh. A Vicryl mesh was then secured to the posterior fascia at the colostomy site using 0 Vicryl. The anterior fascia was closed with 0 Vicryl. The skin was loosely closed with santosh. Some Aquacel Ag rope was tucked into the colostomy site incision and midline incision. Sterile dressings were applied. She tolerated the procedure without difficulty was taken recovery room in satisfactory condition. According to or personnel all counts were correct. Description of Procedure:
[2017-02-12] MEDS ORDERED: HYDROmorphone 1 MG/ML 1 ML SYRINGE IVP PRN (12:37)
[2017-02-12] MEDS ORDERED: NALOXONE 0.4 MG/ML 1 ML VIAL IV PRN (12:37)
[2017-02-12] MEDS ORDERED: ONDANSETRON 4 MG/2 ML VIAL IVP PRN (12:37)
[2017-02-12] MEDS ORDERED: LEVOFLOXACIN 500MG-D5W PMX 500 MG in DEXTROSE/WATER 1 100ML.BAG IVPB STA (12:41)
[2017-02-12] MEDS: HYDROmorphone 1 MG/ML 1 ML SYRINGE IVP PRN ×4 (12:58→13:30)
[2017-02-12 13:04] LABS: Glucose,Whole Blood 183 mg/dL (75-99)
[2017-02-12] MEDS ORDERED: INSULIN LISPRO (humaLOG) 300 UNIT/3 ML VIAL SQ ONE (13:07)
[2017-02-12] MEDS: KETOROLAC 30 MG/ML 1 ML VIAL IVP SCH ×2 (14:13→20:35)
[2017-02-12] MEDS: METOCLOPRAMIDE 5 MG/ML 2 ML VIAL IVP SCH ×2 (14:13→20:35)
--- NOTE | 2017-02-12 15:26 | P.CNPUL ---
History of Present Illness Consult date: 02/12/17 Requesting physician: Stephanie Siu Reason for consult: COPD Chief complaint: Elective reversal of colostomy History of present illness: This is a very pleasant 76-year-old female patient who follows with Dr. Berg as her primary care physician. She has a history of diabetes mellitus , hypertension, morbid obesity, shingles, degenerative arthritis, generalized anxiety disorder, mild COPD with an FEV1 of 67%, former smoker. She also has a history of perforated diverticuli and had undergone an exploratory laparotomy and Morgan's procedure back in August 2016. That time she was seen and evaluated by our group for concern for pneumoperitoneum. 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 She is following with Dr. Bowen in our office for the same. She had undergone a Tristen fundoplication at [facility] and was seen in follow-up on 01/27/2017 in the office. She was doing quite well. Her PFT showed significant improvement in her FVC was 50% and it had improved to 60% post surgery. The patient did not have any pulmonary complaints at that time. She was also evaluated for preop clearance for revision of her colostomy which Dr. Bowen felt was a low risk for her. She is seen today in consultation as she was admitted this morning for an elective reversal of her colostomy. This was performed by Dr. Siu who initially attempted a laparoscopic version however she was converted to an open laparotomy with reversal of colostomy, mobilization of splenic flexure. She is seen on the surgical floor. She is currently awake and alert in no acute distress. She denies any worsening shortness of breath, cough or congestion. She is maintaining good O2 saturations in the upper 90s on 3 L/m per nasal cannula. She's been afebrile. Hemodynamically stable. Her EBL was 400 mL. She still appears quite dry. We will increase her lactated Ringer's to 100 mL' s per hour. She is currently on metronidazole. Review of Systems 14 point review of system was conducted. All negative other than as mentioned in the HPI. Past Medical History Past Medical History: Diabetes Mellitus, Hypertension, Musculoskeletal Disorder , Pneumonia, Skin Disorder Additional Past Medical History / Comment(s): MINOR Hiatal Hernia. HX Shingles. CHRONIC BACK PAIN. DIVERTICULITIS W/ PERFORATION 08/23/16, HAS COLOSTOMY; POST -OP PNEUMONIA, PARLYZED DIAPHRAGM. SKIN DRY, ITCHING. CURRENT BRONCHITS, FINISHING 2ND AB RX, SAW DR BOWEN FOR CLEARANCE. History of Any Multi-Drug Resistant Organisms: None Reported Past Surgical History: Back Surgery, Bowel Resection, Heart Catheterization Additional Past Surgical History / Comment(s): Mult Back Surgeries-Back, Neck Fusions. Epidural Spinal INJ. Levi Cataracts. LAPAROSCOPY, MORGAN'S PROC, COLOSTOMY 08/23/16. REPAIR PARALYZED DIAPHRAGM 11/14/16. Past Anesthesia/Blood Transfusion Reactions: Previous Problems w/ Anesthesia Additional Past Anesthesia/Blood Transfusion Reaction / Comment(s): Stopped breathing POST-OP R/T ALLERGY TO PAIN RX, "over medicated" - had to get narcan. Smoking Status: Former smoker - Past Family History Brother(s) Family Medical History: Cancer Medications and Allergies Home Medications Medication Instructions Recorded Confirmed Type Aspirin 81 mg PO DAILY 11/20/13 02/12/17 History Cholecalciferol [Vitamin D3] 1,000 unit PO DAILY 03/19/15 02/12/17 History INSULIN LISPRO (humaLOG) [humaLOG See Protocol SQ ACHS 09/20/16 02/12/17 History (formulary)] Temazepam [Restoril] 30 mg PO HS 09/20/16 02/12/17 History Albuterol Nebulized [Ventolin 2.5 mg INHALATION RT-Q4H PRN #30 09/24/16 Rx Nebulized] nebu Metoprolol Succinate (ER) [Toprol 100 mg PO DAILY #30 tab.er.24h 09/24/16 Rx XL] ALPRAZolam [Xanax] 0.25 - 0.5 mg PO BID PRN 02/05/17 02/12/17 History Albuterol Sulfate [Proair Hfa] 1 - 2 puff INHALATION RT-Q6H PRN 02/05/17 History Amoxicillin 500 mg PO TID 02/05/17 02/12/17 History Fexofenadine HCl [Adelita Allergy] 180 mg PO DAILY 02/05/17 02/12/17 History Ibuprofen [Motrin] 800 mg PO Q8H PRN 02/05/17 02/12/17 History Insulin Glargine,Hum.rec.anlog 15 units SQ HS 02/05/17 02/12/17 History [Toban Haskins] Allergies Allergy/AdvReac Type Severity Reaction Status Date / Time meperidine HCl [From Demerol] Allergy Severe Anaphylaxis Verified 02/12/17 07:28 shellfish derived [Shellfish] Allergy Severe Anaphylaxis Verified 02/12/17 07:28 morphine Allergy Intermediate SEVERE Verified 02/12/17 07:28 ITCHING, HARD TO BREATH cefuroxime axetil Allergy Unknown Verified 02/12/17 07:28 [From Ceftin] codeine Allergy Abdominal Verified 02/12/17 07:28 Pain, DYSPNEA erythromycin base Allergy Nausea Verified 02/12/17 07:28 [From E-Mycin] fentanyl Allergy FELT Verified 02/12/17 07:28 DRUGGED FOR LONG TIME hydrocodone bitartrate Allergy Abdominal Verified 02/12/17 07:28 [From Lortab] Pain, DYSPNEA lisinopril Allergy Anxiety, Verified 02/12/17 07:28 CAN'T FUNCTION lorazepam [From Ativan] Allergy DILUSIONS Verified 02/12/17 07:28 milk Allergy Diarrhea Verified 02/12/17 07:28 oxycodone HCl [From Percocet] Allergy DYSPNEA, Verified 02/12/17 07:28 ITCHING Physical Exam Vitals: Vital Signs Temp Pulse Resp BP Pulse Ox 02/12/17 13:19 88 16 121/59 96 02/12/17 13:00 89 16 143/60 98 02/12/17 12:45 92 16 131/62 97 02/12/17 12:39 97.8 F 99 14 128/59 96 02/12/17 07:19 85 18 111/59 99 02/12/17 07:07 98.2 F 98 22 161/79 88 L Intake and Output 02/11/17 02/12/17 02/12/17 22:59 06:59 14:59 Intake Total 4763 Output Total 675 Balance 4088 Intake: IV 4763 Output: Urine 275 Estimated Blood Loss 400 GENERAL EXAM: Alert, fairly comfortable in no apparent distress. HEAD: Normocephalic. EYES: Normal reaction of pupils, equal size. NOSE: Clear with pink turbinates. THROAT: No erythema or exudates. NECK: No masses, no JVD. CHEST: No chest wall deformity. LUNGS: Equal air entry with no crackles, wheeze, rhonchi or dullness. CVS: S1 and S2 normal with no audible murmurs, regular rhythm. ABDOMEN: Dressings dry and intact. YUVAL drain in place. SPINE: No scoliosis or deformity SKIN: No rashes CENTRAL NERVOUS SYSTEM: No focal deficits, tone is normal in all 4 extremities. Extremities: There is no significant peripheral edema. No clubbing, no cyanosis. Peripheral pulses are intact. Results - Laboratory Findings CBC and BMP: 02/12/17 07:30 Abnormal lab findings: Abnormal Labs 02/12/17 02/12/17 02/12/17 07:30 10:42 13:02 POC Glucose (mg/dL) 126 H 178 H 183 H Assessment and Plan Plan: Impression: #1 History of perforated diverticuli requiring Maged procedure with end colostomy in August 2016. Status post laparoscopy, laparotomy with reversal of colostomy and mobilization of splenic flexure. Postoperative day #0. #2 History of right hemidiaphragm paralysis, status post surgical plication done at [facility] in November of 2016. #3 History of mild chronic obstructive pulmonary disease with FEV1 value of 67% . Currently inactive and stable. #4 Remote history of chronic tobacco dependence. #5 Diabetes mellitus, type II. #6 Generalized anxiety disorder. #7 Obesity. Plan: The patient was seen and evaluated by Dr. Bowen. She is currently stable from the pulmonary standpoint. We will educate her regarding the use of the incentive spirometer and encourage cough and deep breathing exercises. She'll utilize albuterol as needed. We will increase her activity as tolerated. She has sequential compression devices in place to the lower extremities. She is on Pepcid for GI prophylaxis. Her pain is currently controlled with Toradol. She does appear dry, we did increase the lactated Ringer's to 100 MLS per hour. We'll obtain a chest x-ray in the a.m. We will continue to follow and make further recommendations based on her clinical status. Time with Patient: Greater than 30
--- NOTE | 2017-02-12 15:53 | P.CONS ---
History of Present Illness - Reason for Consult Consult date: 02/12/17 Medical management Requesting physician: Stephanie Siu - Chief Complaint Status post colostomy reversal - History of Present Illness This is a 76-year-old female with a past medical history of diabetes mellitus, hypertension, morbid obesity, degenerative arthritis, anxiety, COPD, right hemidiaphragm paralysis and former smoker. Patient has a history of perforated diverticulitis and had undergone exploratory laparotomy with Maloney's procedure back in August 2016 and has a parastomal hernia. Patient underwent laparoscopic laparotomy with reversal of colostomy with Dr. Siu. Estimated blood loss 200 mL. Patient tolerated surgery well. Patient lying in bed comfortably. No new complaints. Denies any chest pain, shortness of breath, nausea or vomiting. Was having regular bowel movements before admission. Denies any burning with urination. We've been consulted for medical management. Review of Systems Please refer to HPI otherwise unremarkable Past Medical History Past Medical History: Diabetes Mellitus, Hypertension, Musculoskeletal Disorder , Pneumonia, Skin Disorder Additional Past Medical History / Comment(s): MINOR Hiatal Hernia. HX Shingles. CHRONIC BACK PAIN. DIVERTICULITIS W/ PERFORATION 08/23/16, HAS COLOSTOMY; POST -OP PNEUMONIA, PARLYZED DIAPHRAGM. SKIN DRY, ITCHING. CURRENT BRONCHITS, FINISHING 2ND AB RX, SAW DR WOOTEN FOR CLEARANCE. History of Any Multi-Drug Resistant Organisms: None Reported Past Surgical History: Back Surgery, Bowel Resection, Heart Catheterization Additional Past Surgical History / Comment(s): Mult Back Surgeries-Back, Neck Fusions. Epidural Spinal INJ. Levi Cataracts. LAPAROSCOPY, MALONEY'S PROC, COLOSTOMY 08/23/16. REPAIR PARALYZED DIAPHRAGM 11/14/16. Past Anesthesia/Blood Transfusion Reactions: Previous Problems w/ Anesthesia Additional Past Anesthesia/Blood Transfusion Reaction / Comm: Stopped breathing POST-OP R/T ALLERGY TO PAIN RX, "over medicated" - had to get narcan. Smoking Status: Former smoker - Past Family History Brother(s) Family Medical History: Cancer Medications and Allergies Home Medications Medication Instructions Recorded Confirmed Type Aspirin 81 mg PO DAILY 11/20/13 02/12/17 History Cholecalciferol [Vitamin D3] 1,000 unit PO DAILY 03/19/15 02/12/17 History INSULIN LISPRO (humaLOG) [humaLOG See Protocol SQ ACHS 09/20/16 02/12/17 History (formulary)] Temazepam [Restoril] 30 mg PO HS 09/20/16 02/12/17 History Albuterol Nebulized [Ventolin 2.5 mg INHALATION RT-Q4H PRN #30 09/24/16 Rx Nebulized] nebu Metoprolol Succinate (ER) [Toprol 100 mg PO DAILY #30 tab.er.24h 09/24/16 Rx XL] ALPRAZolam [Xanax] 0.25 - 0.5 mg PO BID PRN 02/05/17 02/12/17 History Albuterol Sulfate [Proair Hfa] 1 - 2 puff INHALATION RT-Q6H PRN 02/05/17 History Amoxicillin 500 mg PO TID 02/05/17 02/12/17 History Fexofenadine HCl [Adelita Allergy] 180 mg PO DAILY 02/05/17 02/12/17 History Ibuprofen [Motrin] 800 mg PO Q8H PRN 02/05/17 02/12/17 History Insulin Glargine,Hum.rec.anlog 15 units SQ HS 02/05/17 02/12/17 History [Toujeo Solostar] Allergies Allergy/AdvReac Type Severity Reaction Status Date / Time meperidine HCl [From Demerol] Allergy Severe Anaphylaxis Verified 02/12/17 07:28 shellfish derived [Shellfish] Allergy Severe Anaphylaxis Verified 02/12/17 07:28 morphine Allergy Intermediate SEVERE Verified 02/12/17 07:28 ITCHING, HARD TO BREATH cefuroxime axetil Allergy Unknown Verified 02/12/17 07:28 [From Ceftin] codeine Allergy Abdominal Verified 02/12/17 07:28 Pain, DYSPNEA erythromycin base Allergy Nausea Verified 02/12/17 07:28 [From E-Mycin] fentanyl Allergy FELT Verified 02/12/17 07:28 DRUGGED FOR LONG TIME hydrocodone bitartrate Allergy Abdominal Verified 02/12/17 07:28 [From Lortab] Pain, DYSPNEA lisinopril Allergy Anxiety, Verified 02/12/17 07:28 CAN'T FUNCTION lorazepam [From Ativan] Allergy DILUSIONS Verified 02/12/17 07:28 milk Allergy Diarrhea Verified 09/07/17 07:28 oxycodone HCl [From Percocet] Allergy DYSPNEA, Verified 02/12/17 07:28 ITCHING Physical Exam Vitals: Vital Signs Temp Pulse Resp BP Pulse Ox 02/12/17 13:19 88 16 121/59 96 02/12/17 13:00 89 16 143/60 98 02/12/17 12:45 92 16 131/62 97 02/12/17 12:39 97.8 F 99 14 128/59 96 02/12/17 07:19 85 18 111/59 99 02/12/17 07:07 98.2 F 98 22 161/79 88 L Intake and Output 02/12/17 02/12/17 02/12/17 06:59 14:59 22:59 Intake Total 4763 Output Total 675 Balance 4088 Intake: IV 4763 Output: Urine 275 Estimated Blood Loss 400 Head normocephalic Neck supple Lungs clear to auscultation bilaterally no wheezing or crackles Heart regular rate and rhythm S1-S2, no rub or gallop Abdomen is soft nondistended. No bowel sounds noted. Ice packs in place Extremities no edema Neuro alert and orientated to 3 Results CBC & Chem 7: 02/12/17 07:30 Labs: Abnormal Lab Results - Last 24 Hours (Table) 02/12/17 02/12/17 02/12/17 Range/Units 07:30 10:42 13:02 POC Glucose (mg/dL) 126 H 178 H 183 H (75-99) mg/dL Assessment and Plan Plan: 1. Postop day #0 status post laparoscopy, laparotomy with reversal of colostomy and mobilization of splenic flexure. With a History of Maloney's procedure and colostomy for perforated diverticulitis in August 2016 2. Diabetes mellitus type 2: Hold the Toujeo. Place patient on sliding scale coverage. Patient had slight elevation in blood sugar due to the dexamethasone she received an aura. Continue to monitor 3. History of right hemidiaphragm paralysis with previous repair in November 2016 4. History of COPD: No evidence of exacerbation 5. Generalized anxiety disorder: Xanax resumed DVT prophylaxis SCDs and GI prophylaxis Pepcid Thank you for this consultation. We'll follow along with you. Time with Patient: Greater than 30 (Greater than 50% of the total time spent in counseling and coordination of care.I performed an examination of the patient and discussed their management with the physician Leaf Tinner. I have reviewed the Physician Leaf Tinner's notes and agree with the documented findings and plan of care)
[2017-02-12] MEDS: metroNIDAZOLE-NS PMX 500 MG in SALINE 1 100ML.BAG IVPB SCH ×2 (16:18→23:42)
[2017-02-12 16:27] LABS: Glucose,Whole Blood 217 mg/dL (75-99)
[2017-02-12] MEDS: ALBUTEROL NEBULIZED 2.5 MG/3 ML INHALATION PRN ×2 (17:00→21:11)
[2017-02-12] MEDS: INSULIN LISPRO (humaLOG) 300 UNIT/3 ML VIAL SQ SCH ×2 (17:34→21:06)
[2017-02-12] MEDS: ALPRAZolam 0.5 MG TAB PO PRN (18:23)
[2017-02-12 20:42] LABS: Glucose,Whole Blood 165 mg/dL (75-99)
[2017-02-12] MEDS: FAMOTIDINE 20 MG TAB PO SCH (21:05)
[2017-02-12] MEDS: SODIUM CHLORIDE 0.9% 250 ML IV SCH ×2 (22:35→23:04)
[2017-02-12] MEDS: TEMAZEPAM 30 MG CAP PO SCH (23:05)
[2017-02-12] MEDS ORDERED: ALPRAZolam 0.25 MG TAB PO STA (23:30)
[2017-02-12] MEDS: QUEtiapine 25 MG TAB PO SCH (23:38)
[2017-02-13] MEDS: TEMAZEPAM 30 MG CAP PO SCH ×2 (01:20→20:57)
[2017-02-13] MEDS: METOCLOPRAMIDE 5 MG/ML 2 ML VIAL IVP SCH ×4 (01:21→17:22)
[2017-02-13] MEDS: KETOROLAC 30 MG/ML 1 ML VIAL IVP SCH ×4 (01:21→17:23)
[2017-02-13 07:16] LABS: Glucose,Whole Blood 133 mg/dL (75-99)
[2017-02-13] MEDS: ALBUTEROL NEBULIZED 2.5 MG/3 ML INHALATION PRN ×4 (07:53→20:22)
[2017-02-13 08:02] LABS: ALT 38 U/L (9-52); AST 26 U/L (14-36); Alkaline Phosphatase 40 U/L (38-126); Anion Gap 6 mmol/L; Blood Urea Nitrogen 13 mg/dL (7-17); Calcium 8.1 mg/dL (8.4-10.2); Carbon Dioxide 24 mmol/L (22-30); Chloride 104 mmol/L (98-107); Glucose 129 mg/dL (74-99); Non-African American GFR(MDRD) >60 (>60 ml/min/1.73 sqM); Potassium 3.9 mmol/L (3.5-5.1); Sodium 134 mmol/L (137-145); Total Bilirubin 0.6 mg/dL (0.2-1.3); Total Protein 4.5 g/dL (6.3-8.2)
[2017-02-13 08:11] LABS: Basophils % (A) 0 %; CH 27.8; CHCM 32.4; Eosinophils % (A) 0 %; HCT 31.8 % (34.0-46.0); HDW 2.94; Luc # (Auto) 0.19; Luc % (Auto) 3; Lymphocytes # (A) 1.4 k/uL (1.0-4.8); Lymphocytes % (A) 20 %; MCH 28.6 pg (25.0-35.0); MCV 86.4 fL (80.0-100.0); Mean Platelet Volume 8.2; Monocytes # (A) 0.4 k/uL (0-1.0); Monocytes % (A) 5 %; Neutrophils # (A) 5.1 k/uL (1.3-7.7); Neutrophils % (A) 72 %; RBC 3.68 m/uL (3.80-5.40); RDW 15.6 % (11.5-15.5); WBC 7.1 k/uL (3.8-10.6); WBC (Perox) 7.24
[2017-02-13] MEDS: ASPIRIN 81 MG PO SCH (08:11)
[2017-02-13] MEDS: INSULIN LISPRO (humaLOG) 300 UNIT/3 ML VIAL SQ SCH ×4 (08:11→20:56)
[2017-02-13] MEDS: LORATADINE 10 MG TAB PO SCH (08:12)
[2017-02-13] MEDS: CHOLECALCIFEROL 1,000 UNIT TAB PO SCH (08:12)
[2017-02-13] MEDS: FAMOTIDINE 20 MG TAB PO SCH (08:12)
[2017-02-13 08:18] LABS: HGB 10.5 gm/dL (11.4-16.0)
[2017-02-13] MEDS ORDERED: LACTATED RINGERS 250 ML IV ONE ×2 (09:00→09:30)
[2017-02-13] MEDS ORDERED: METOPROLOL SUCCINATE (ER) 100 MG TAB.ER.24H PO SCH (09:00)
[2017-02-13 09:36] LABS: Glucose,Whole Blood 163 mg/dL (75-99)
[2017-02-13 09:41] LABS: Hemoglobin A1C 6.9 % (4.2-6.1)
[2017-02-13] MEDS: metroNIDAZOLE-NS PMX 500 MG in SALINE 1 100ML.BAG IVPB SCH (09:59)
[2017-02-13 11:36] LABS: Glucose,Whole Blood 119 mg/dL (75-99)
--- NOTE | 2017-02-13 12:39 | P.PN ---
Subjective Principal diagnosis: sHe is not Having nausea or vomiting. Not passing flatus. She passed a small amount of blood per rectum. Her blood pressure Did drop a little bit this morning. She had just received her blood pressure medication. She is not really having pain it's more discomfort. She is hungry. Objective - Vital Signs Vital signs: Vital Signs Temp 97.8 F 02/13/17 07:00 Pulse 80 02/13/17 12:22 Resp 18 02/13/17 07:00 BP 101/67 02/13/17 09:47 Pulse Ox 98 02/13/17 07:00 Intake & Output 02/12/17 02/13/17 02/13/17 18:59 06:59 18:59 Intake Total 4763 2050 Output Total 775 1115 50 Balance 3988 935 -50 Weight 69.853 kg Intake: IV 4763 Intake, IV Titration 2050 Amount Lactated Ringers 1,000 ml 1600 @ 100 mls/hr IV .Q10H ONE Rx#:[id number] Sodium Chloride 0.9% 250 250 ml @ 999 mls/hr IV .Q16M ARELY Rx#:[id number] metroNIDAZOLE-NS PMX 500 200 mg In Saline 1 100ml.bag @ 100 mls/hr IVPB Q8HR ARELY Rx#:[id number] Output: Drainage 100 290 50 Anterior Abdomen 100 290 50 Urine 275 825 Uretheral ([place]) 200 Estimated Blood Loss 400 Other: Voiding Method Indwelling Catheter Indwelling Catheter Toilet # Voids 5 5 - Constitutional General appearance: Present: cooperative, no acute distress - Respiratory Respiratory: bilateral: CTA, diminished (Minimally at the bases. She is doing about 750 MLS on the incentive spirometry) - Cardiovascular Rhythm: regular - Gastrointestinal General gastrointestinal: Present: decreased bowel sounds, soft Localized gastrointestinal: surgical scar: diffuse (The dressings have some serosanguineous drainage. The YUVAL is serosanguineous.) - Labs CBC & Chem 7: 02/13/17 07:13 02/13/17 07:13 Labs: Abnormal Lab Results - Last 24 Hours (Table) 02/12/17 02/12/17 02/12/17 Range/Units 13:02 16:21 20:40 RBC (3.80-5.40) m/uL Hgb (11.4-16.0) gm/dL Hct (34.0-46.0) % RDW (11.5-15.5) % Sodium (137-145) mmol/L Glucose (74-99) mg/dL POC Glucose (mg/dL) 183 H 217 H 165 H (75-99) mg/dL Hemoglobin A1c (4.2-6.1) % Calcium (8.4-10.2) mg/dL Total Protein (6.3-8.2) g/dL Albumin (3.5-5.0) g/dL 02/13/17 02/13/17 02/13/17 Range/Units 07:10 07:13 07:13 RBC 3.68 L (3.80-5.40) m/uL Hgb 10.5 L D (11.4-16.0) gm/dL Hct 31.8 L (34.0-46.0) % RDW 15.6 H (11.5-15.5) % Sodium (137-145) mmol/L Glucose (74-99) mg/dL POC Glucose (mg/dL) 133 H (75-99) mg/dL Hemoglobin A1c 6.9 H (4.2-6.1) % Calcium (8.4-10.2) mg/dL Total Protein (6.3-8.2) g/dL Albumin (3.5-5.0) g/dL 02/13/17 02/13/17 02/13/17 Range/Units 07:13 09:13 11:29 RBC (3.80-5.40) m/uL Hgb (11.4-16.0) gm/dL Hct (34.0-46.0) % RDW (11.5-15.5) % Sodium 134 L (137-145) mmol/L Glucose 129 H (74-99) mg/dL POC Glucose (mg/dL) 163 H 119 H (75-99) mg/dL Hemoglobin A1c (4.2-6.1) % Calcium 8.1 L (8.4-10.2) mg/dL Total Protein 4.5 L (6.3-8.2) g/dL Albumin 2.4 L (3.5-5.0) g/dL Assessment and Plan (1) Postop check Status: Acute (2) Parastomal hernia Status: Acute Plan: We'll slowly increase her activity some clear liquids as tolerated. She would like to try oral pain medications so we'll do that. The I did leave some nessa in the incision to allow for drainage, this would account for the serosanguineous drainage on the dressings. Progressing slowly.
--- NOTE | 2017-02-13 13:45 | P.PN ---
Subjective Patient has history of perforated diverticulitis and had undergone exploratory laparotomy with Maged's procedure back in August 2016. Yesterday she underwent laparoscopic laparotomy with reversal of colostomy. Patient tolerated surgery well. This morning patient had become hypotensive. She did still receive her on metoprolol. This medication has now been discontinued. She did receive IV fluid boluses. Blood pressure has shown improvement last blood pressure was 117. We'll continue to monitor. Patient denies any dizziness or lightheadedness. Denies any nausea or vomiting. Patient admits to burping but is not passing any gas. Denies any burning with urination. She has been up and ambulating to the bathroom. Objective - Vital Signs Vital signs: Vital Signs Temp 97.8 F 02/13/17 07:00 Pulse 80 02/13/17 12:37 Resp 18 02/13/17 07:00 BP 101/67 02/13/17 09:47 Pulse Ox 98 02/13/17 07:00 Intake & Output 02/12/17 02/13/17 02/13/17 18:59 06:59 18:59 Intake Total 4763 2050 Output Total 775 1115 50 Balance 3988 935 -50 Weight 69.853 kg Intake: IV 4763 Intake, IV Titration 2050 Amount Lactated Ringers 1,000 ml 1600 @ 100 mls/hr IV .Q10H ONE Rx#:[id number] Sodium Chloride 0.9% 250 250 ml @ 999 mls/hr IV .Q16M ARELY Rx#:[id number] metroNIDAZOLE-NS PMX 500 200 mg In Saline 1 100ml.bag @ 100 mls/hr IVPB Q8HR ARELY Rx#:[id number] Output: Drainage 100 290 50 Anterior Abdomen 100 290 50 Urine 275 825 Uretheral ([place]) 200 Estimated Blood Loss 400 Other: Voiding Method Indwelling Catheter Indwelling Catheter Toilet # Voids 5 5 - Exam Head normocephalic Neck supple Lungs few crackles at the bases Heart regular rate and rhythm S1-S2, no rub or gallop Abdomen is soft dressing has some saturation with blood. Abdominal binder in place Extremities no edema Neuro alert and orientated to 3 - Labs CBC & Chem 7: 02/13/17 07:13 02/13/17 07:13 Labs: Abnormal Lab Results - Last 24 Hours (Table) 02/12/17 02/12/17 02/13/17 Range/Units 16:21 20:40 07:10 RBC (3.80-5.40) m/uL Hgb (11.4-16.0) gm/dL Hct (34.0-46.0) % RDW (11.5-15.5) % Sodium (137-145) mmol/L Glucose (74-99) mg/dL POC Glucose (mg/dL) 217 H 165 H 133 H (75-99) mg/dL Hemoglobin A1c (4.2-6.1) % Calcium (8.4-10.2) mg/dL Total Protein (6.3-8.2) g/dL Albumin (3.5-5.0) g/dL 02/13/17 02/13/17 02/13/17 Range/Units 07:13 07:13 07:13 RBC 3.68 L (3.80-5.40) m/uL Hgb 10.5 L D (11.4-16.0) gm/dL Hct 31.8 L (34.0-46.0) % RDW 15.6 H (11.5-15.5) % Sodium 134 L (137-145) mmol/L Glucose 129 H (74-99) mg/dL POC Glucose (mg/dL) (75-99) mg/dL Hemoglobin A1c 6.9 H (4.2-6.1) % Calcium 8.1 L (8.4-10.2) mg/dL Total Protein 4.5 L (6.3-8.2) g/dL Albumin 2.4 L (3.5-5.0) g/dL 02/13/17 02/13/17 Range/Units 09:13 11:29 RBC (3.80-5.40) m/uL Hgb (11.4-16.0) gm/dL Hct (34.0-46.0) % RDW (11.5-15.5) % Sodium (137-145) mmol/L Glucose (74-99) mg/dL POC Glucose (mg/dL) 163 H 119 H (75-99) mg/dL Hemoglobin A1c (4.2-6.1) % Calcium (8.4-10.2) mg/dL Total Protein (6.3-8.2) g/dL Albumin (3.5-5.0) g/dL Assessment and Plan Plan: 1. Postop day #1 status post laparoscopy, laparotomy with reversal of colostomy and mobilization of splenic flexure. With a History of Maolney's procedure and colostomy for perforated diverticulitis in August 2016 2. Diabetes mellitus type 2: Hold the Toujeo. Place patient on sliding scale coverage. Blood sugars are currently stable 3. History of right hemidiaphragm paralysis with previous repair in November 2016 4. History of COPD: No evidence of exacerbation 5. Generalized anxiety disorder: Xanax resumed 6. Hypotension: Showing improvement with IV fluid boluses. Discontinue metoprolol for now. Continue to monitor blood pressures closely. Change IV fluids to normal saline at 100 mL an hour DVT prophylaxis add subcu heparin and GI prophylaxis Pepcid
--- NOTE | 2017-02-13 14:09 | P.PN ---
Subjective Principal diagnosis: Reversal of colostomy, elective This is a very pleasant 76-year-old female patient who follows with Dr. Berg as her primary care physician. She has a history of diabetes mellitus , hypertension, morbid obesity, shingles, degenerative arthritis, generalized anxiety disorder, mild COPD with an FEV1 of 67%, former smoker. She also has a history of perforated diverticuli and had undergone an exploratory laparotomy and Maloney's procedure back in August 2016. That time she was seen and evaluated by our group for concern for pneumoperitoneum. 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 She is following with Dr. Bowen in our office for the same. She had undergone a Tristen fundoplication at [facility] and was seen in follow-up on 01/27/2017 in the office. She was doing quite well. Her PFT showed significant improvement in her FVC was 50% and it had improved to 60% post surgery. The patient did not have any pulmonary complaints at that time. She was also evaluated for preop clearance for revision of her colostomy which Dr. Bowen felt was a low risk for her. She is seen today in consultation as she was admitted this morning for an elective reversal of her colostomy. This was performed by Dr. Siu who initially attempted a laparoscopic version however she was converted to an open laparotomy with reversal of colostomy, mobilization of splenic flexure. She is seen on the surgical floor. She is currently awake and alert in no acute distress. She denies any worsening shortness of breath, cough or congestion. She is maintaining good O2 saturations in the upper 90s on 3 L/m per nasal cannula. She's been afebrile. Hemodynamically stable. Her EBL was 400 mL. She still appears quite dry. We will increase her lactated Ringer's to 100 mL' s per hour. She is currently on metronidazole. The patient is seen again today 02/13/2017 in follow-up on the regular medical floor. She is awake and alert in no acute distress. She has been having some issues of fatigue and shakiness that she is thinking is from her Toradol which she received earlier this morning. She did have a dip in her blood pressure into the 90s over the 40s as well. She received 1 L of fluid and recovered well. She denies any shortness of breath, cough or congestion. No dizziness or lightheadedness. Her hemoglobin is stable at 10.5. No leukocytosis. She's remained afebrile. Urine output adequate. Peak continues to drain serosanguineous fluid. X-ray 135 mL's today. She is maintaining good O2 saturations in the high 90s on 2 L/m per nasal cannula. Objective - Vital Signs Vital signs: Vital Signs Temp 97.8 F 02/13/17 07:00 Pulse 80 02/13/17 12:37 Resp 18 02/13/17 07:00 BP 101/67 02/13/17 09:47 Pulse Ox 98 02/13/17 07:00 Intake & Output 02/12/17 02/13/17 02/13/17 18:59 06:59 18:59 Intake Total 4763 2050 Output Total 775 1115 50 Balance 3988 935 -50 Weight 69.853 kg Intake: IV 4763 Intake, IV Titration 2050 Amount Lactated Ringers 1,000 ml 1600 @ 100 mls/hr IV .Q10H [facility] Rx#:[id number] Sodium Chloride 0.9% 250 250 ml @ 999 mls/hr IV .Q16M [facility] Rx#:[id number] metroNIDAZOLE-NS PMX 500 200 mg In Saline 1 100ml.bag @ 100 mls/hr IVPB Q8HR [facility] Rx#:[id number] Output: Drainage 100 290 50 Anterior Abdomen 100 290 50 Urine 275 825 Uretheral ([place]) 200 Estimated Blood Loss 400 Other: Voiding Method Indwelling Catheter Indwelling Catheter Toilet # Voids 5 5 - Exam GENERAL EXAM: Alert, fairly comfortable in no apparent distress. HEAD: Normocephalic. EYES: Normal reaction of pupils, equal size. NOSE: Clear with pink turbinates. THROAT: No erythema or exudates. NECK: No masses, no JVD. CHEST: No chest wall deformity. LUNGS: Equal air entry with no crackles, wheeze, rhonchi or dullness. CVS: S1 and S2 normal with no audible murmurs, regular rhythm. ABDOMEN: Dressings dry and intact. YUVAL drain in place. SPINE: No scoliosis or deformity SKIN: No rashes CENTRAL NERVOUS SYSTEM: No focal deficits, tone is normal in all 4 extremities. Extremities: There is no significant peripheral edema. No clubbing, no cyanosis. Peripheral pulses are intact. - Labs CBC & Chem 7: 02/13/17 07:13 02/13/17 07:13 Labs: Abnormal Lab Results - Last 24 Hours (Table) 02/12/17 02/12/17 02/13/17 Range/Units 16:21 20:40 07:10 RBC (3.80-5.40) m/uL Hgb (11.4-16.0) gm/dL Hct (34.0-46.0) % RDW (11.5-15.5) % Sodium (137-145) mmol/L Glucose (74-99) mg/dL POC Glucose (mg/dL) 217 H 165 H 133 H (75-99) mg/dL Hemoglobin A1c (4.2-6.1) % Calcium (8.4-10.2) mg/dL Total Protein (6.3-8.2) g/dL Albumin (3.5-5.0) g/dL 02/13/17 02/13/17 02/13/17 Range/Units 07:13 07:13 07:13 RBC 3.68 L (3.80-5.40) m/uL Hgb 10.5 L D (11.4-16.0) gm/dL Hct 31.8 L (34.0-46.0) % RDW 15.6 H (11.5-15.5) % Sodium 134 L (137-145) mmol/L Glucose 129 H (74-99) mg/dL POC Glucose (mg/dL) (75-99) mg/dL Hemoglobin A1c 6.9 H (4.2-6.1) % Calcium 8.1 L (8.4-10.2) mg/dL Total Protein 4.5 L (6.3-8.2) g/dL Albumin 2.4 L (3.5-5.0) g/dL 02/13/17 02/13/17 Range/Units 09:13 11:29 RBC (3.80-5.40) m/uL Hgb (11.4-16.0) gm/dL Hct (34.0-46.0) % RDW (11.5-15.5) % Sodium (137-145) mmol/L Glucose (74-99) mg/dL POC Glucose (mg/dL) 163 H 119 H (75-99) mg/dL Hemoglobin A1c (4.2-6.1) % Calcium (8.4-10.2) mg/dL Total Protein (6.3-8.2) g/dL Albumin (3.5-5.0) g/dL Assessment and Plan Plan: Impression: #1 History of perforated diverticuli requiring Maged procedure with end colostomy in August 2016. Status post laparoscopy, laparotomy with reversal of colostomy and mobilization of splenic flexure. Postoperative day #1. #2 History of right hemidiaphragm paralysis, status post surgical plication done at [facility] in November of 2016. #3 History of mild chronic obstructive pulmonary disease with FEV1 value of 67% . Currently inactive and stable. #4 Remote history of chronic tobacco dependence. #5 Diabetes mellitus, type II. #6 Generalized anxiety disorder. #7 Obesity. Plan: The patient was seen and evaluated by Dr. Bowen. She is currently stable from the pulmonary standpoint. We have again educated her regarding the use of the incentive spirometer and encourage cough and deep breathing exercises. She'll utilize albuterol as needed. We will increase her activity as tolerated. We will continue to follow and make further recommendations based on her clinical status.
--- NOTE | 2017-02-13 15:09 | XR ---
EXAMINATION TYPE: XR chest 1V portable DATE OF EXAM: 02/13/2017 COMPARISON: Prior chest x-ray 09/23/2016, 01/27/2017 HISTORY: Postop atelectasis TECHNIQUE: Single frontal view of the chest is obtained. FINDINGS: Persistent elevation of the right hemidiaphragm is noted. Patchy density is present at the lung bases. No evident pneumothorax. Heart size is stable and may be somewhat accentuated by techniq ue. Arthropathy noted within the shoulders. IMPRESSION: Findings compatible with basilar atelectasis. Chronic elevation of the right hemidiaphra gm.
[2017-02-13 16:41] LABS: Glucose,Whole Blood 128 mg/dL (75-99)
[2017-02-13 20:46] LABS: Glucose,Whole Blood 136 mg/dL (75-99)
[2017-02-13] MEDS: ACETAMINOPHEN TAB 325 MG TAB PO PRN (20:57)
[2017-02-13] MEDS ORDERED: HEPARIN SODIUM,PORCINE 5,000 UNIT/ML 1 ML VIAL SQ SCH (21:00)
[2017-02-13] MEDS: QUEtiapine 25 MG TAB PO SCH (21:23)
[2017-02-14] MEDS: METOCLOPRAMIDE 5 MG/ML 2 ML VIAL IVP SCH ×2 (00:22→05:37)
[2017-02-14] MEDS: KETOROLAC 30 MG/ML 1 ML VIAL IVP SCH ×3 (00:22→05:34)
[2017-02-14] MEDS: traMADol 50 MG TAB PO PRN ×3 (01:31→20:16)
[2017-02-14 07:22] LABS: Glucose,Whole Blood 110 mg/dL (75-99)
[2017-02-14 07:38] LABS: Anisocytosis Slight; Basophils % (A) 0 %; CH 29.1; CHCM 33.6; Eosinophils # (A) 0.1 k/uL (0-0.7); Eosinophils % (A) 2 %; HCT 31.6 % (34.0-46.0); HDW 2.98; HGB 10.3 gm/dL (11.4-16.0); Luc # (Auto) 0.13; Luc % (Auto) 2; Lymphocytes # (A) 1.4 k/uL (1.0-4.8); Lymphocytes % (A) 20 %; MCH 28.3 pg (25.0-35.0); MCHC 32.5 g/dL (31.0-37.0); MCV 87.3 fL (80.0-100.0); Mean Platelet Volume 8.7; Monocytes # (A) 0.3 k/uL (0-1.0); Monocytes % (A) 5 %; Neutrophils % (A) 72 %; RBC 3.62 m/uL (3.80-5.40); RDW 16.5 % (11.5-15.5); WBC 6.9 k/uL (3.8-10.6); WBC (Perox) 6.93
[2017-02-14] MEDS: INSULIN LISPRO (humaLOG) 300 UNIT/3 ML VIAL SQ SCH ×4 (08:10→21:58)
[2017-02-14] MEDS: ALBUTEROL NEBULIZED 2.5 MG/3 ML INHALATION PRN ×4 (08:11→20:23)
[2017-02-14] MEDS: ALPRAZolam 0.5 MG TAB PO PRN ×2 (08:15→14:14)
[2017-02-14] MEDS: ASPIRIN 81 MG PO SCH (08:15)
[2017-02-14] MEDS: FAMOTIDINE 20 MG TAB PO SCH (08:15)
[2017-02-14] MEDS: CHOLECALCIFEROL 1,000 UNIT TAB PO SCH (08:15)
[2017-02-14] MEDS: LORATADINE 10 MG TAB PO SCH (08:15)
[2017-02-14 08:23] LABS: ALT 32 U/L (9-52); AST 28 U/L (14-36); Alkaline Phosphatase 49 U/L (38-126); Anion Gap 7 mmol/L; Blood Urea Nitrogen 8 mg/dL (7-17); Calcium 8.3 mg/dL (8.4-10.2); Carbon Dioxide 24 mmol/L (22-30); Chloride 108 mmol/L (98-107); Glucose 113 mg/dL (74-99); Non-African American GFR(MDRD) >60 (>60 ml/min/1.73 sqM); Sodium 139 mmol/L (137-145); Total Bilirubin 0.9 mg/dL (0.2-1.3); Total Protein 4.9 g/dL (6.3-8.2)
[2017-02-14 11:49] LABS: Glucose,Whole Blood 120 mg/dL (75-99)
--- NOTE | 2017-02-14 13:37 | P.PN ---
Subjective Principal diagnosis: Reversal of colostomy, elective This is a very pleasant 76-year-old female patient who follows with Dr. Berg as her primary care physician. She has a history of diabetes mellitus , hypertension, morbid obesity, shingles, degenerative arthritis, generalized anxiety disorder, mild COPD with an FEV1 of 67%, former smoker. She also has a history of perforated diverticuli and had undergone an exploratory laparotomy and Maloney's procedure back in August 2016. That time she was seen and evaluated by our group for concern for pneumoperitoneum. 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 She is following with Dr. Bowen in our office for the same. She had undergone a Tristen fundoplication at [facility] and was seen in follow-up on 01/27/2017 in the office. She was doing quite well. Her PFT showed significant improvement in her FVC was 50% and it had improved to 60% post surgery. The patient did not have any pulmonary complaints at that time. She was also evaluated for preop clearance for revision of her colostomy which Dr. Bowen felt was a low risk for her. She is seen today in consultation as she was admitted this morning for an elective reversal of her colostomy. This was performed by Dr. Siu who initially attempted a laparoscopic version however she was converted to an open laparotomy with reversal of colostomy, mobilization of splenic flexure. She is seen on the surgical floor. She is currently awake and alert in no acute distress. She denies any worsening shortness of breath, cough or congestion. She is maintaining good O2 saturations in the upper 90s on 3 L/m per nasal cannula. She's been afebrile. Hemodynamically stable. Her EBL was 400 mL. She still appears quite dry. We will increase her lactated Ringer's to 100 mL' s per hour. She is currently on metronidazole. The patient is seen again today 02/13/2017 in follow-up on the regular medical floor. She is awake and alert in no acute distress. She has been having some issues of fatigue and shakiness that she is thinking is from her Toradol which she received earlier this morning. She did have a dip in her blood pressure into the 90s over the 40s as well. She received 1 L of fluid and recovered well. She denies any shortness of breath, cough or congestion. No dizziness or lightheadedness. Her hemoglobin is stable at 10.5. No leukocytosis. She's remained afebrile. Urine output adequate. Peak continues to drain serosanguineous fluid. X-ray 135 mL's today. She is maintaining good O2 saturations in the high 90s on 2 L/m per nasal cannula. The patient is seen again today 02/14/2017 in follow-up on the regular medical floor. She is awake and alert in no acute distress. She is doing better today as compared to yesterday. She's been up in the chair. She is working well with the incentive spirometer. Her pain is better controlled. She is not nauseated. She is tolerating a soft diet. No pulmonary complaints. Objective - Vital Signs Vital signs: Vital Signs Temp 97.2 F L 02/14/17 08:00 Pulse 92 02/14/17 12:04 Resp 14 02/14/17 11:52 BP 131/64 02/14/17 08:00 Pulse Ox 98 02/14/17 08:00 Intake & Output 02/13/17 02/14/17 02/14/17 18:59 06:59 18:59 Output Total 80 81 Balance -80 -81 Output: Drainage 80 80 Anterior Abdomen 80 80 Urine 1 Other: Voiding Method Toilet Toilet Toilet # Voids 2 2 - Exam GENERAL EXAM: Alert, fairly comfortable in no apparent distress. HEAD: Normocephalic. EYES: Normal reaction of pupils, equal size. NOSE: Clear with pink turbinates. THROAT: No erythema or exudates. NECK: No masses, no JVD. CHEST: No chest wall deformity. LUNGS: Equal air entry with no crackles, wheeze, rhonchi or dullness. CVS: S1 and S2 normal with no audible murmurs, regular rhythm. ABDOMEN: Dressings dry and intact. YUVAL drain in place. SPINE: No scoliosis or deformity SKIN: No rashes CENTRAL NERVOUS SYSTEM: No focal deficits, tone is normal in all 4 extremities. Extremities: There is no significant peripheral edema. No clubbing, no cyanosis. Peripheral pulses are intact. - Labs CBC & Chem 7: 02/14/17 07:23 02/14/17 07:23 Labs: Abnormal Lab Results - Last 24 Hours (Table) 02/13/17 02/13/1717 Range/Units 16:38 20:45 07:20 RBC (3.80-5.40) m/uL Hgb (11.4-16.0) gm/dL Hct (34.0-46.0) % RDW (11.5-15.5) % Chloride (98-107) mmol/L Glucose (74-99) mg/dL POC Glucose (mg/dL) 128 H 136 H 110 H (75-99) mg/dL Calcium (8.4-10.2) mg/dL Total Protein (6.3-8.2) g/dL Albumin (3.5-5.0) g/dL 02/14/17 02/14/17 02/14/17 Range/Units 07:23 07:23 11:48 RBC 3.62 L (3.80-5.40) m/uL Hgb 10.3 L (11.4-16.0) gm/dL Hct 31.6 L (34.0-46.0) % RDW 16.5 H (11.5-15.5) % Chloride 108 H (98-107) mmol/L Glucose 113 H (74-99) mg/dL POC Glucose (mg/dL) 120 H (75-99) mg/dL Calcium 8.3 L (8.4-10.2) mg/dL Total Protein 4.9 L (6.3-8.2) g/dL Albumin 2.7 L (3.5-5.0) g/dL Assessment and Plan Plan: Impression: #1 History of perforated diverticuli requiring Maged procedure with end colostomy in August 2016. Status post laparoscopy, laparotomy with reversal of colostomy and mobilization of splenic flexure. Postoperative day #2. #2 History of right hemidiaphragm paralysis, status post surgical plication done at [facility] in November of 2016. #3 History of mild chronic obstructive pulmonary disease with FEV1 value of 67% . Currently inactive and stable. #4 Remote history of chronic tobacco dependence. #5 Diabetes mellitus, type II. #6 Generalized anxiety disorder. #7 Obesity. Plan: The patient was seen and evaluated by Dr. Bowen. She remains stable from the pulmonary standpoint. She is working well with the incentive spirometer and encourage cough and deep breathing exercises. We will increase her activity as tolerated. We will continue to follow and make further recommendations based on her clinical status.
--- NOTE | 2017-02-14 14:26 | P.PN ---
Progress Note - Text The patient is resting comfortably in bed. She is requesting Morty. She's had some limited flatus. On exam her vital signs are stable. Her abdomen soft. Her incision is clean dry and intact. Patient will have her diet advanced. She will be reevaluated in the morning.
[2017-02-14 16:53] LABS: Glucose,Whole Blood 150 mg/dL (75-99)
--- NOTE | 2017-02-14 18:09 | P.PN ---
Subjective This is a 76-year-old female with a past medical history of diabetes mellitus, hypertension, morbid obesity, degenerative arthritis, anxiety, COPD, right hemidiaphragm paralysis and former smoker. Patient has a history of perforated diverticulitis and had undergone exploratory laparotomy with Maloney's procedure back in August 2016 and has a parastomal hernia. Patient underwent laparoscopic laparotomy with reversal of colostomy with Dr. Siu. Estimated blood loss 200 mL. Patient tolerated surgery well. Patient lying in bed comfortably. No new complaints. Denies any chest pain, shortness of breath, nausea or vomiting. Was having regular bowel movements before admission. Denies any burning with urination. We've been consulted for medical management. On 02/14/2017 patient is alert and oriented 3, she is complaining of some pain and discomfort in her abdomen otherwise no complaints, she is passing gas she has not had any bowel movement yet, she is tolerating diet well without any vomiting. There is no fever or chills no chest pain no shortness of breath no vomiting and no urinary symptoms Objective - Vital Signs Vital signs: Vital Signs Temp 98 F 02/14/17 15:00 Pulse 90 02/14/17 16:01 Resp 16 02/14/17 16:00 BP 105/65 02/14/17 15:00 Pulse Ox 97 02/14/17 15:00 Intake & Output 02/13/17 02/14/17 02/14/17 18:59 06:59 18:59 Intake Total 600 Output Total 80 81 1 Balance -80 -81 599 Weight 69.853 kg Intake: Oral 600 Output: Drainage 80 80 Anterior Abdomen 80 80 Urine 1 1 Other: Voiding Method Toilet Toilet Toilet # Voids 2 2 3 - Exam In general patient is alert and oriented 3 in no apparent distress HEENT head normocephalic and atraumatic Neck is supple no JVD no goiter no lymphadenopathy Chest is clear to auscultation no wheezing Cardiac exam reveals regular heart sounds no murmurs Abdomen is soft nontender no organomegaly Extremity exam reveals no edema no cyanosis or clubbing - Labs CBC & Chem 7: 02/14/17 07:23 02/14/17 07:23 Labs: Abnormal Lab Results - Last 24 Hours (Table) 02/13/17 02/14/17 02/14/17 Range/Units 20:45 07:20 07:23 RBC 3.62 L (3.80-5.40) m/uL Hgb 10.3 L (11.4-16.0) gm/dL Hct 31.6 L (34.0-46.0) % RDW 16.5 H (11.5-15.5) % Chloride (98-107) mmol/L Glucose (74-99) mg/dL POC Glucose (mg/dL) 136 H 110 H (75-99) mg/dL Calcium (8.4-10.2) mg/dL Total Protein (6.3-8.2) g/dL Albumin (3.5-5.0) g/dL 02/14/17 02/14/17 02/14/17 Range/Units 07:23 11:48 16:49 RBC (3.80-5.40) m/uL Hgb (11.4-16.0) gm/dL Hct (34.0-46.0) % RDW (11.5-15.5) % Chloride 108 H (98-107) mmol/L Glucose 113 H (74-99) mg/dL POC Glucose (mg/dL) 120 H 150 H (75-99) mg/dL Calcium 8.3 L (8.4-10.2) mg/dL Total Protein 4.9 L (6.3-8.2) g/dL Albumin 2.7 L (3.5-5.0) g/dL Assessment and Plan Plan: 1. Postop day #2 status post laparoscopy, laparotomy with reversal of colostomy and mobilization of splenic flexure. With a History of Maloney's procedure and colostomy for perforated diverticulitis in August 2016 2. Diabetes mellitus type 2: Hold the [place]. Place patient on sliding scale coverage. Blood sugars are currently stable 3. History of right hemidiaphragm paralysis with previous repair in November 2016 4. History of COPD: No evidence of exacerbation 5. Generalized anxiety disorder: Xanax resumed 6. Hypotension: Showing improvement with IV fluid boluses. Discontinue metoprolol for now. Continue to monitor blood pressures closely. Change IV fluids to normal saline at 100 mL an hour
[2017-02-14] MEDS: QUEtiapine 25 MG TAB PO SCH (20:18)
[2017-02-14 20:44] LABS: Glucose,Whole Blood 135 mg/dL (75-99)
[2017-02-14] MEDS ORDERED: ALPRAZolam 0.25 MG TAB PO ONE (21:25)
[2017-02-14] MEDS ORDERED: METOPROLOL SUCCINATE (ER) 100 MG TAB.ER.24H PO ONE (21:28)
[2017-02-14] MEDS: TEMAZEPAM 30 MG CAP PO SCH (22:14)
[2017-02-14] MEDS: ACETAMINOPHEN TAB 325 MG TAB PO PRN (22:17)
[2017-02-14] MEDS: SODIUM CHLORIDE 0.9% 1,000 ML IV SCH (22:18)
[2017-02-15] MEDS: traMADol 50 MG TAB PO PRN ×3 (01:59→21:28)
[2017-02-15 07:19] LABS: Glucose,Whole Blood 96 mg/dL (75-99)
[2017-02-15 07:25] LABS: Anisocytosis Slight; Basophils % (A) 0 %; CH 28.6; CHCM 32.3; Eosinophils # (A) 0.1 k/uL (0-0.7); Eosinophils % (A) 3 %; HCT 27.6 % (34.0-46.0); HDW 2.98; Luc % (Auto) 2; Lymphocytes # (A) 0.9 k/uL (1.0-4.8); Lymphocytes % (A) 20 %; MCHC 32.5 g/dL (31.0-37.0); MCV 89.2 fL (80.0-100.0); Mean Platelet Volume 8.6; Monocytes # (A) 0.3 k/uL (0-1.0); Monocytes % (A) 8 %; Neutrophils # (A) 2.8 k/uL (1.3-7.7); Neutrophils % (A) 67 %; RDW 16.7 % (11.5-15.5); WBC 4.2 k/uL (3.8-10.6); WBC (Perox) 4.49
[2017-02-15 07:40] LABS: ALT 35 U/L (9-52); AST 21 U/L (14-36); Alkaline Phosphatase 44 U/L (38-126); Anion Gap 4 mmol/L; Blood Urea Nitrogen 7 mg/dL (7-17); Calcium 8.1 mg/dL (8.4-10.2); Carbon Dioxide 26 mmol/L (22-30); Chloride 109 mmol/L (98-107); Glucose 90 mg/dL (74-99); Non-African American GFR(MDRD) >60 (>60 ml/min/1.73 sqM); Potassium 4.1 mmol/L (3.5-5.1); Sodium 139 mmol/L (137-145); Total Bilirubin 0.8 mg/dL (0.2-1.3); Total Protein 4.4 g/dL (6.3-8.2)
[2017-02-15] MEDS: ALBUTEROL NEBULIZED 2.5 MG/3 ML INHALATION PRN ×4 (08:15→20:13)
[2017-02-15] MEDS: LORATADINE 10 MG TAB PO SCH (08:25)
[2017-02-15] MEDS: INSULIN LISPRO (humaLOG) 300 UNIT/3 ML VIAL SQ SCH ×4 (08:38→21:22)
[2017-02-15] MEDS: FAMOTIDINE 20 MG TAB PO SCH (08:41)
[2017-02-15] MEDS: ASPIRIN 81 MG PO SCH (08:41)
[2017-02-15] MEDS: CHOLECALCIFEROL 1,000 UNIT TAB PO SCH (08:41)
[2017-02-15] MEDS: SODIUM CHLORIDE 0.9% 1,000 ML IV SCH (08:41)
[2017-02-15] MEDS: ALPRAZolam 0.5 MG TAB PO PRN (08:41)
[2017-02-15] MEDS ORDERED: FUROSEMIDE 10 MG/ML 4 ML VIAL IV STA (08:56)
[2017-02-15] MEDS ORDERED: methylPREDNISolone SOD SUCCI 125 MG/2 ML VIAL IV STA (08:57)
--- NOTE | 2017-02-15 09:16 | P.PN ---
Progress Note - Text The patient's complaints of shortness of breath and wheezing. She is known to Dr. nguyen. On exam her vital signs are stable. Her abdomen soft. Incision site is clean dry tach. The patient will remain on soft diet. We will have Dr. mueller see her today for pulmonary evaluation.
--- NOTE | 2017-02-15 10:25 | XR ---
EXAMINATION TYPE: XR chest 2V DATE OF EXAM: 02/15/2017 HISTORY: Shortness of breath and wheezing. REFERENCE: Previous study dated 02/13/2017. FINDINGS: There is apparent elevation right hemidiaphragm. The heart is mildly enlarged. There is ate lectatic change at the right lung base. The left lung appears clear. There is blunting of the right C P angle. I would not be able to exclude a small effusion. The overall appearance is essentially uncha nged from previous. IMPRESSION: NO SIGNIFICANT INTERVAL CHANGE IN THE APPEARANCE OF THE CHEST.
[2017-02-15 11:41] LABS: Glucose,Whole Blood 154 mg/dL (75-99)
--- NOTE | 2017-02-15 14:11 | P.PN ---
Subjective Principal diagnosis: Status post reversal of colostomy/elective This is a very pleasant 76-year-old female patient who follows with Dr. Berg as her primary care physician. She has a history of diabetes mellitus , hypertension, morbid obesity, shingles, degenerative arthritis, generalized anxiety disorder, mild COPD with an FEV1 of 67%, former smoker. She also has a history of perforated diverticuli and had undergone an exploratory laparotomy and Maloney's procedure back in August 2016. That time she was seen and evaluated by our group for concern for pneumoperitoneum. 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 She is following with Dr. Bowen in our office for the same. She had undergone a Tristen fundoplication at [facility] and was seen in follow-up on 01/27/2017 in the office. She was doing quite well. Her PFT showed significant improvement in her FVC was 50% and it had improved to 60% post surgery. The patient did not have any pulmonary complaints at that time. She was also evaluated for preop clearance for revision of her colostomy which Dr. Bowen felt was a low risk for her. She is seen today in consultation as she was admitted this morning for an elective reversal of her colostomy. This was performed by Dr. Siu who initially attempted a laparoscopic version however she was converted to an open laparotomy with reversal of colostomy, mobilization of splenic flexure. She is seen on the surgical floor. She is currently awake and alert in no acute distress. She denies any worsening shortness of breath, cough or congestion. She is maintaining good O2 saturations in the upper 90s on 3 L/m per nasal cannula. She's been afebrile. Hemodynamically stable. Her EBL was 400 mL. She still appears quite dry. We will increase her lactated Ringer's to 100 mL' s per hour. She is currently on metronidazole. The patient is seen again today 02/13/2017 in follow-up on the regular medical floor. She is awake and alert in no acute distress. She has been having some issues of fatigue and shakiness that she is thinking is from her Toradol which she received earlier this morning. She did have a dip in her blood pressure into the 90s over the 40s as well. She received 1 L of fluid and recovered well. She denies any shortness of breath, cough or congestion. No dizziness or lightheadedness. Her hemoglobin is stable at 10.5. No leukocytosis. She's remained afebrile. Urine output adequate. Peak continues to drain serosanguineous fluid. X-ray 135 mL's today. She is maintaining good O2 saturations in the high 90s on 2 L/m per nasal cannula. The patient is seen again today 02/14/2017 in follow-up on the regular medical floor. She is awake and alert in no acute distress. She is doing better today as compared to yesterday. She's been up in the chair. She is working well with the incentive spirometer. Her pain is better controlled. She is not nauseated. She is tolerating a soft diet. No pulmonary complaints. Patient was reevaluated today on 02/15/2017, earlier this morning I was notified about the patient having some cough and wheezing. I recommended a dose of Lasix 40 mg IV push, she was also given an updraft treatment, and given one dose of Solu-Medrol to 125 mg IV push. By the time I came back to see the patient, she was doing extremely well, and all her wheezing has completely resolved. Upon my evaluation she sounded very clear. And asymptomatic. Chest x-ray was noted to be relatively unremarkable, heart was slightly enlarged, she has chronic atelectatic changes at the right base. Objective - Vital Signs Vital signs: Vital Signs Temp 97.5 F L 02/15/17 13:32 Pulse 96 02/15/17 13:32 Resp 17 02/15/17 13:32 BP 145/75 02/15/17 13:32 Pulse Ox 97 02/15/17 13:32 Intake & Output 02/14/17 02/15/17 02/15/17 18:59 06:59 18:59 Intake Total 600 825 850 Output Total 1 110 1065 Balance 599 715 -215 Weight 69.853 kg Intake: Intake, IV Titration 825 Amount Sodium Chloride 0.9% 1, 825 000 ml @ 75 mls/hr IV . [id number] [facility] Rx#:[id number] Oral 600 850 Output: Drainage 110 65 Anterior Abdomen 110 65 Urine 1 1000 Other: Voiding Method Toilet Toilet # Voids 3 3 - Exam GENERAL EXAM: Alert, fairly comfortable in no apparent distress. HEAD: Normocephalic. EYES: Normal reaction of pupils, equal size. NOSE: Clear with pink turbinates. THROAT: No erythema or exudates. NECK: No masses, no JVD. CHEST: No chest wall deformity. LUNGS: Equal air entry with no crackles, wheeze, rhonchi or dullness. CVS: S1 and S2 normal with no audible murmurs, regular rhythm. ABDOMEN: Dressings dry and intact. YUVAL drain in place. SPINE: No scoliosis or deformity SKIN: No rashes CENTRAL NERVOUS SYSTEM: No focal deficits, tone is normal in all 4 extremities. Extremities: There is no significant peripheral edema. No clubbing, no cyanosis. Peripheral pulses are intact. - Labs CBC & Chem 7: 02/15/17 06:32 02/15/17 06:32 Labs: Abnormal Lab Results - Last 24 Hours (Table) 02/14/17 02/14/17 02/15/17 Range/Units 16:49 20:37 06:32 RBC 3.10 L (3.80-5.40) m/uL Hgb 9.0 L (11.4-16.0) gm/dL Hct 27.6 L (34.0-46.0) % RDW 16.7 H (11.5-15.5) % Plt Count 149 L (150-450) k/uL Lymphocytes # 0.9 L (1.0-4.8) k/uL Chloride (98-107) mmol/L POC Glucose (mg/dL) 150 H 135 H (75-99) mg/dL Calcium (8.4-10.2) mg/dL Total Protein (6.3-8.2) g/dL Albumin (3.5-5.0) g/dL 02/15/17 02/15/17 Range/Units 06:32 11:40 RBC (3.80-5.40) m/uL Hgb (11.4-16.0) gm/dL Hct (34.0-46.0) % RDW (11.5-15.5) % Plt Count (150-450) k/uL Lymphocytes # (1.0-4.8) k/uL Chloride 109 H (98-107) mmol/L POC Glucose (mg/dL) 154 H (75-99) mg/dL Calcium 8.1 L (8.4-10.2) mg/dL Total Protein 4.4 L (6.3-8.2) g/dL Albumin 2.2 L (3.5-5.0) g/dL Assessment and Plan Plan: #1 History of perforated diverticuli requiring Maged procedure with end colostomy in August 2016. Status post laparoscopy, laparotomy with reversal of colostomy and mobilization of splenic flexure. Postoperative day #2. #2 History of right hemidiaphragm paralysis, status post surgical plication done at [facility] in November of 2016. #3 History of mild chronic obstructive pulmonary disease with FEV1 value of 67% . Currently inactive and stable. #4 Remote history of chronic tobacco dependence. #5 Diabetes mellitus, type II. #6 Generalized anxiety disorder. #7 Obesity. #8 acute exacerbation of COPD, responded well to treatment, patient will remain on bronchodilators, no need for IV Solu-Medrol at this point, we'll continue to follow. Consider discharge planning in the next 24 hours. Follow-up on outpatient basis. Time with Patient: Less than 30
--- NOTE | 2017-02-15 15:01 | P.PN ---
Subjective This is a 76-year-old female with a past medical history of diabetes mellitus, hypertension, morbid obesity, degenerative arthritis, anxiety, COPD, right hemidiaphragm paralysis and former smoker. Patient has a history of perforated diverticulitis and had undergone exploratory laparotomy with Maloney's procedure back in August 2016 and has a parastomal hernia. Patient underwent laparoscopic laparotomy with reversal of colostomy with Dr. Siu. Estimated blood loss 200 mL. Patient tolerated surgery well. Patient lying in bed comfortably. No new complaints. Denies any chest pain, shortness of breath, nausea or vomiting. Was having regular bowel movements before admission. Denies any burning with urination. We've been consulted for medical management. On patient is alert and oriented 3, she is complaining of some pain and discomfort in her abdomen otherwise no complaints, she is passing gas she has not had any bowel movement yet, she is tolerating diet well without any vomiting. Patient was complaining of shortness of breath this morning she was given IV Lasix and updraft she was evaluated by pulmonary Dr Bowen Objective - Vital Signs Vital signs: Vital Signs Temp 97.5 F L 02/15/17 13:32 Pulse 96 02/15/17 13:32 Resp 17 02/15/17 13:32 BP 145/75 02/15/17 13:32 Pulse Ox 97 02/15/17 13:32 Intake & Output 02/14/17 02/15/17 02/15/17 18:59 06:59 18:59 Intake Total 600 825 850 Output Total 1 110 1065 Balance 599 715 -215 Weight 69.853 kg Intake: Intake, IV Titration 825 Amount Sodium Chloride 0.9% 1, 825 000 ml @ 75 mls/hr IV . [id number] [facility] Rx#:[id number] Oral 600 850 Output: Drainage 110 65 Anterior Abdomen 110 65 Urine 1 1000 Other: Voiding Method Toilet Toilet # Voids 3 3 - Exam In general patient is alert and oriented 3 in no apparent distress HEENT head normocephalic and atraumatic Neck is supple no JVD no goiter no lymphadenopathy Chest is clear to auscultation no wheezing Cardiac exam reveals regular heart sounds no murmurs Abdomen is soft nontender no organomegaly Extremity exam reveals no edema no cyanosis or clubbing - Labs CBC & Chem 7: 02/15/17 06:32 02/15/17 06:32 Labs: Abnormal Lab Results - Last 24 Hours (Table) 02/14/17 02/14/17 02/15/17 Range/Units 16:49 20:37 06:32 RBC 3.10 L (3.80-5.40) m/uL Hgb 9.0 L (11.4-16.0) gm/dL Hct 27.6 L (34.0-46.0) % RDW 16.7 H (11.5-15.5) % Plt Count 149 L (150-450) k/uL Lymphocytes # 0.9 L (1.0-4.8) k/uL Chloride (98-107) mmol/L POC Glucose (mg/dL) 150 H 135 H (75-99) mg/dL Calcium (8.4-10.2) mg/dL Total Protein (6.3-8.2) g/dL Albumin (3.5-5.0) g/dL 02/15/17 02/15/17 Range/Units 06:32 11:40 RBC (3.80-5.40) m/uL Hgb (11.4-16.0) gm/dL Hct (34.0-46.0) % RDW (11.5-15.5) % Plt Count (150-450) k/uL Lymphocytes # (1.0-4.8) k/uL Chloride 109 H (98-107) mmol/L POC Glucose (mg/dL) 154 H (75-99) mg/dL Calcium 8.1 L (8.4-10.2) mg/dL Total Protein 4.4 L (6.3-8.2) g/dL Albumin 2.2 L (3.5-5.0) g/dL Assessment and Plan Plan: 1. Postop day #3 status post laparoscopy, laparotomy with reversal of colostomy and mobilization of splenic flexure. With a History of Maloney's procedure and colostomy for perforated diverticulitis in August 2016 2. Diabetes mellitus type 2: Hold the Toujeo. Place patient on sliding scale coverage. Blood sugars are currently stable 3. History of right hemidiaphragm paralysis with previous repair in November 2016 4. History of COPD: No evidence of exacerbation 5. Generalized anxiety disorder: Xanax resumed 6. Hypotension. improved 7. Shortness of breath and wheezing, discontinue IV fluids, patient given a dose of lasix this morning
[2017-02-15 16:50] LABS: Glucose,Whole Blood 226 mg/dL (75-99)
[2017-02-15 19:53] LABS: Glucose,Whole Blood 257 mg/dL (75-99)
[2017-02-15] MEDS: QUEtiapine 25 MG TAB PO SCH (21:23)
[2017-02-15] MEDS: TEMAZEPAM 30 MG CAP PO SCH (21:27)
[2017-02-15] MEDS: METOPROLOL SUCCINATE (ER) 100 MG TAB.ER.24H PO SCH (21:29)
[2017-02-16] MEDS: ALPRAZolam 0.5 MG TAB PO PRN ×2 (02:27→14:53)
[2017-02-16] MEDS: traMADol 50 MG TAB PO PRN ×3 (02:28→21:58)
[2017-02-16 06:32] LABS: Anisocytosis Slight; Basophils % (A) 0 %; CH 28.7; CHCM 33.2; Eosinophils % (A) 1 %; HCT 26.8 % (34.0-46.0); HDW 3.03; HGB 8.8 gm/dL (11.4-16.0); Luc # (Auto) 0.05; Luc % (Auto) 1; Lymphocytes # (A) 0.5 k/uL (1.0-4.8); Lymphocytes % (A) 14 %; MCH 28.6 pg (25.0-35.0); MCHC 32.9 g/dL (31.0-37.0); MCV 87.1 fL (80.0-100.0); Mean Platelet Volume 9.1; Monocytes # (A) 0.2 k/uL (0-1.0); Monocytes % (A) 6 %; Neutrophils # (A) 2.8 k/uL (1.3-7.7); Neutrophils % (A) 79 %; RBC 3.07 m/uL (3.80-5.40); RDW 16.1 % (11.5-15.5); WBC 3.5 k/uL (3.8-10.6); WBC (Perox) 3.72
[2017-02-16 07:03] LABS: Glucose,Whole Blood 159 mg/dL (75-99)
[2017-02-16 07:09] LABS: ALT 32 U/L (9-52); AST 18 U/L (14-36); Alkaline Phosphatase 44 U/L (38-126); Anion Gap 5 mmol/L; Blood Urea Nitrogen 13 mg/dL (7-17); Calcium 8.9 mg/dL (8.4-10.2); Carbon Dioxide 30 mmol/L (22-30); Chloride 102 mmol/L (98-107); Glucose 169 mg/dL (74-99); Non-African American GFR(MDRD) >60 (>60 ml/min/1.73 sqM); Potassium 4.4 mmol/L (3.5-5.1); Sodium 137 mmol/L (137-145); Total Bilirubin 0.5 mg/dL (0.2-1.3); Total Protein 4.8 g/dL (6.3-8.2)
[2017-02-16] MEDS: INSULIN LISPRO (humaLOG) 300 UNIT/3 ML VIAL SQ SCH ×4 (07:12→20:27)
[2017-02-16] MEDS: ASPIRIN 81 MG PO SCH (08:07)
[2017-02-16] MEDS: LORATADINE 10 MG TAB PO SCH ×2 (08:07)
[2017-02-16] MEDS: CHOLECALCIFEROL 1,000 UNIT TAB PO SCH (08:07)
[2017-02-16] MEDS: METOPROLOL SUCCINATE (ER) 100 MG TAB.ER.24H PO SCH ×2 (08:07→20:29)
[2017-02-16] MEDS: FAMOTIDINE 20 MG TAB PO SCH (08:07)
[2017-02-16] MEDS: ALBUTEROL NEBULIZED 2.5 MG/3 ML INHALATION PRN ×4 (08:22→20:05)
--- NOTE | 2017-02-16 08:45 | P.PN ---
Subjective Principal diagnosis: sHe is not Having nausea or vomiting. Not passing flatus. She passed a small amount of blood per rectum. Her blood pressure Did drop a little bit this morning. She had just received her blood pressure medication. She is not really having pain it's more discomfort. She is hungry. The patient is doing well from a surgical standpoint. She is eating well. Passing flatus. Passed a very small amount of stool in the toilet tissue. She has not ambulated in the bowen. Complaining of some wheezing. She is being seen by pulmonary. Objective - Vital Signs Vital signs: Vital Signs Temp 97.0 F L 02/16/17 07:00 Pulse 76 02/16/17 07:00 Resp 16 02/16/17 07:00 BP 108/57 02/16/17 07:00 Pulse Ox 100 02/16/17 07:00 Intake & Output 02/15/17 02/16/17 02/16/17 18:59 06:59 18:59 Intake Total 850 Output Total 1065 75 Balance -215 -75 Intake: Oral 850 Output: Drainage 65 75 Anterior Abdomen 65 75 Urine 1000 Other: Voiding Method Toilet Toilet # Voids 2 1 - Constitutional General appearance: Present: cooperative, no acute distress - Gastrointestinal General gastrointestinal: Present: normal bowel sounds, soft Localized gastrointestinal: surgical scar: diffuse (The incisions are intact. There are nessa of Aquacel Ag in place. No cellulitis. YUVAL is serosanguineous) - Labs CBC & Chem 7: 02/16/17 06:17 02/16/17 06:17 Labs: Abnormal Lab Results - Last 24 Hours (Table) 02/15/17 02/15/17 02/15/17 Range/Units 11:40 16:48 19:37 WBC (3.8-10.6) k/uL RBC (3.80-5.40) m/uL Hgb (11.4-16.0) gm/dL Hct (34.0-46.0) % RDW (11.5-15.5) % Lymphocytes # (1.0-4.8) k/uL Glucose (74-99) mg/dL POC Glucose (mg/dL) 154 H 226 H 257 H (75-99) mg/dL Total Protein (6.3-8.2) g/dL Albumin (3.5-5.0) g/dL 02/16/17 02/16/17 02/16/17 Range/Units 06:17 06:17 06:53 WBC 3.5 L (3.8-10.6) k/uL RBC 3.07 L (3.80-5.40) m/uL Hgb 8.8 L (11.4-16.0) gm/dL Hct 26.8 L (34.0-46.0) % RDW 16.1 H (11.5-15.5) % Lymphocytes # 0.5 L (1.0-4.8) k/uL Glucose 169 H (74-99) mg/dL POC Glucose (mg/dL) 159 H (75-99) mg/dL Total Protein 4.8 L (6.3-8.2) g/dL Albumin 2.6 L (3.5-5.0) g/dL Assessment and Plan (1) Postop check Status: Acute (2) Parastomal hernia Status: Acute Plan: Encouraged activity. She is to be up in a chair with her meals and ambulate in the bowen. Progressing well. Likely discharge in the next couple of days as her pulmonary status permits.
--- NOTE | 2017-02-16 10:25 | P.PN ---
Subjective Patient has history of perforated diverticulitis and had undergone exploratory laparotomy with Maged's procedure back in August 2016. Yesterday she underwent laparoscopic laparotomy with reversal of colostomy. Patient tolerated surgery well. This morning patient had become hypotensive. She did still receive her on metoprolol. This medication has now been discontinued. She did receive IV fluid boluses. Blood pressure has shown improvement last blood pressure was 117. We'll continue to monitor. Patient denies any dizziness or lightheadedness. Denies any nausea or vomiting. Patient admits to burping but is not passing any gas. Denies any burning with urination. She has been up and ambulating to the bathroom. 02/16/2017 patient's abdominal pain is controlled. She denies any nausea or vomiting. Tolerating a soft diet. Reports passing gas and a small BM. Denies any burning with urination. Denies any chest pain. Did have some shortness of breath yesterday. Patient was given a dose of IV steroids and IV Lasix. Symptoms are showing improvement. Objective - Vital Signs Vital signs: Vital Signs Temp 97.0 F L 02/16/17 07:00 Pulse 76 02/16/17 07:00 Resp 16 02/16/17 07:00 BP 108/57 02/16/17 07:00 Pulse Ox 100 02/16/17 07:00 Intake & Output 02/15/17 02/16/17 02/16/17 18:59 06:59 18:59 Intake Total 850 Output Total 1065 75 Balance -215 -75 Intake: Oral 850 Output: Drainage 65 75 Anterior Abdomen 65 75 Urine 1000 Other: Voiding Method Toilet Toilet # Voids 2 1 - Exam Head normocephalic Neck supple Lungs diminished bilaterally Heart regular rate and rhythm S1-S2, no rub or gallop Abdomen is soft, abdominal binder in place. Nondistended Extremities no edema Neuro alert and orientated to 3 - Labs CBC & Chem 7: 02/16/17 06:17 02/16/17 06:17 Labs: Abnormal Lab Results - Last 24 Hours (Table) 02/15/17 02/15/17 02/15/17 Range/Units 11:40 16:48 19:37 WBC (3.8-10.6) k/uL RBC (3.80-5.40) m/uL Hgb (11.4-16.0) gm/dL Hct (34.0-46.0) % RDW (11.5-15.5) % Lymphocytes # (1.0-4.8) k/uL Glucose (74-99) mg/dL POC Glucose (mg/dL) 154 H 226 H 257 H (75-99) mg/dL Total Protein (6.3-8.2) g/dL Albumin (3.5-5.0) g/dL 02/16/17 02/16/17 02/16/17 Range/Units 06:17 06:17 06:53 WBC 3.5 L (3.8-10.6) k/uL RBC 3.07 L (3.80-5.40) m/uL Hgb 8.8 L (11.4-16.0) gm/dL Hct 26.8 L (34.0-46.0) % RDW 16.1 H (11.5-15.5) % Lymphocytes # 0.5 L (1.0-4.8) k/uL Glucose 169 H (74-99) mg/dL POC Glucose (mg/dL) 159 H (75-99) mg/dL Total Protein 4.8 L (6.3-8.2) g/dL Albumin 2.6 L (3.5-5.0) g/dL Assessment and Plan Plan: 1. status post laparoscopy, laparotomy with reversal of colostomy and mobilization of splenic flexure. With a History of Maloney's procedure and colostomy for perforated diverticulitis in August 2016 2. Diabetes mellitus type 2: Hold the Toujeo. Place patient on sliding scale coverage. Blood sugars are currently stable 3. History of right hemidiaphragm paralysis with previous repair in November 2016 4. History of COPD: No evidence of exacerbation 5. Generalized anxiety disorder: Xanax resumed 6. Hypotension: Improved with IV fluids. They'll francisco remains on hold. 7. Acute COPD exacerbation: Patient was given 1 dose of IV Solu-Medrol. Continue breathing treatments. Pulmonary service following. Patient showing improvement. 8. Postop anemia with acute blood loss anemia. Hemoglobin down to 8.8. Continue to monitor. Check hemoglobin in a.m. DVT prophylaxis SCDs and GI prophylaxis Pepcid Her encourage ambulation and incentive spirometry use I performed an examination of the patient and discussed their management with the physician Ice Sculptor. I have reviewed the Physician Ice Sculptor's notes and agree with the documented findings and plan of care
--- NOTE | 2017-02-16 11:19 | P.PN ---
Subjective Progress note dated 02/16/2017 This is a patient with a history of perforated diverticuli requiring Maloney's procedure with end colostomy in August 2016. The patient had were laparotomy with reversal of colostomy and mobilization of splenic flexure, postop day #3. She also has a history of right hemidiaphragm paralysis status post surgical plication at [facility] COPD chronic tobacco dependence diabetes generalized anxiety disorder obesity and is in acute exacerbation of COPD. Patient seemed be doing relatively well today. Lying flat in bed. Does have nasal O2 in place. Physical little weak. Not having any issues with her breathing at the current time. Not coughing. Not producing any phlegm. Objective - Vital Signs Vital signs: Vital Signs Temp 97.0 F L 02/16/17 07:00 Pulse 76 02/16/17 07:00 Resp 16 02/16/17 07:00 BP 108/57 02/16/17 07:00 Pulse Ox 100 02/16/17 07:00 Intake & Output 02/15/17 02/16/17 02/16/17 18:59 06:59 18:59 Intake Total 850 Output Total 1065 75 Balance -215 -75 Intake: Oral 850 Output: Drainage 65 75 Anterior Abdomen 65 75 Urine 1000 Other: Voiding Method Toilet Toilet # Voids 2 1 2 - Exam No acute distress, oriented 3. HEENT examination is grossly unremarkable. Mucous membranes are moist. No oral lesions. Nasal O2 in place. Neck supple. Full range of motion. No adenopathy or thyromegaly. Neck veins are flat. Cardiovascular examination reveals regular rhythm rate. S1-S2 normal. No S3- S4 or murmur. Lungs reveal mostly clear breath sounds. A few scattered rhonchi. No wheezes or crackles. Breath sounds are equal. Abdomen a little tense. Mild pain on palpation. A Bentley-Li drain is noted. Extremities are intact. No cyanosis clubbing or edema. Skin without rash. Neurologic examination is prepared nonfocal. - Labs CBC & Chem 7: 02/16/17 06:17 02/16/17 06:17 Labs: Abnormal Lab Results - Last 24 Hours (Table) 02/15/17 02/15/17 02/15/17 Range/Units 11:40 16:48 19:37 WBC (3.8-10.6) k/uL RBC (3.80-5.40) m/uL Hgb (11.4-16.0) gm/dL Hct (34.0-46.0) % RDW (11.5-15.5) % Lymphocytes # (1.0-4.8) k/uL Glucose (74-99) mg/dL POC Glucose (mg/dL) 154 H 226 H 257 H (75-99) mg/dL Total Protein (6.3-8.2) g/dL Albumin (3.5-5.0) g/dL 02/16/17 02/16/17 02/16/17 Range/Units 06:17 06:17 06:53 WBC 3.5 L (3.8-10.6) k/uL RBC 3.07 L (3.80-5.40) m/uL Hgb 8.8 L (11.4-16.0) gm/dL Hct 26.8 L (34.0-46.0) % RDW 16.1 H (11.5-15.5) % Lymphocytes # 0.5 L (1.0-4.8) k/uL Glucose 169 H (74-99) mg/dL POC Glucose (mg/dL) 159 H (75-99) mg/dL Total Protein 4.8 L (6.3-8.2) g/dL Albumin 2.6 L (3.5-5.0) g/dL Assessment and Plan (1) History of colostomy reversal Status: Acute (2) Parastomal hernia Status: Acute (3) Postop check Status: Acute (4) Anxiety Status: Acute (5) COPD (chronic obstructive pulmonary disease) Status: Acute (6) Diaphragmatic paralysis Status: Acute (7) Perforation of sigmoid colon due to diverticulitis Status: Acute Plan: Plan dated 02/16/2017. The patient seemed be doing relatively well. We'll continue to follow. Likely discharge in a day or so. From the pulmonary standpoint she is doing well. The patient continued continues to have pain medication provided her. The patient will continue on incentive spirometer. Recommend deep breathing coughing and clearing her secretions. No additional recommendations are made. Time with Patient: Less than 30
[2017-02-16 11:39] LABS: Glucose,Whole Blood 192 mg/dL (75-99)
[2017-02-16 17:51] LABS: Glucose,Whole Blood 151 mg/dL (75-99)
[2017-02-16 20:12] LABS: Glucose,Whole Blood 195 mg/dL (75-99)
[2017-02-16] MEDS: TEMAZEPAM 30 MG CAP PO SCH ×2 (20:29→21:58)
[2017-02-16] MEDS: QUEtiapine 25 MG TAB PO SCH (20:29)
[2017-02-17] MEDS: ACETAMINOPHEN TAB 325 MG TAB PO PRN ×2 (00:23→23:04)
[2017-02-17] MEDS: traMADol 50 MG TAB PO PRN ×3 (05:51→22:07)
[2017-02-17 06:56] LABS: Glucose,Whole Blood 119 mg/dL (75-99)
[2017-02-17] MEDS: INSULIN LISPRO (humaLOG) 300 UNIT/3 ML VIAL SQ SCH ×4 (07:11→20:21)
[2017-02-17 07:52] LABS: Anisocytosis Slight; Basophils % (A) 0 %; CH 28.7; CHCM 32.5; Eosinophils # (A) 0.1 k/uL (0-0.7); Eosinophils % (A) 3 %; HCT 28.7 % (34.0-46.0); HDW 3.04; HGB 9.2 gm/dL (11.4-16.0); Luc % (Auto) 2; Lymphocytes # (A) 1.2 k/uL (1.0-4.8); Lymphocytes % (A) 28 %; MCH 28.4 pg (25.0-35.0); MCV 88.8 fL (80.0-100.0); Mean Platelet Volume 8.6; Monocytes # (A) 0.5 k/uL (0-1.0); Monocytes % (A) 12 %; Neutrophils # (A) 2.4 k/uL (1.3-7.7); Neutrophils % (A) 56 %; RBC 3.23 m/uL (3.80-5.40); RDW 16.3 % (11.5-15.5); WBC 4.3 k/uL (3.8-10.6); WBC (Perox) 4.72
[2017-02-17] MEDS: FAMOTIDINE 20 MG TAB PO SCH (08:06)
[2017-02-17] MEDS: CHOLECALCIFEROL 1,000 UNIT TAB PO SCH (08:06)
[2017-02-17] MEDS: ASPIRIN 81 MG PO SCH (08:06)
[2017-02-17 08:13] LABS: ALT 38 U/L (9-52); AST 32 U/L (14-36); Alkaline Phosphatase 44 U/L (38-126); Anion Gap 7 mmol/L; Blood Urea Nitrogen 20 mg/dL (7-17); Calcium 8.3 mg/dL (8.4-10.2); Carbon Dioxide 30 mmol/L (22-30); Chloride 102 mmol/L (98-107); Glucose 106 mg/dL (74-99); Non-African American GFR(MDRD) 57 (>60 ml/min/1.73 sqM); Potassium 4.2 mmol/L (3.5-5.1); Sodium 139 mmol/L (137-145); Total Bilirubin 0.4 mg/dL (0.2-1.3); Total Protein 4.9 g/dL (6.3-8.2)
[2017-02-17] MEDS: ALBUTEROL NEBULIZED 2.5 MG/3 ML INHALATION PRN ×3 (08:49→19:15)
--- NOTE | 2017-02-17 10:43 | P.PN ---
Subjective Progress note dated 02/16/2017 This is a patient with a history of perforated diverticuli requiring Maolney's procedure with end colostomy in August 2016. The patient had were laparotomy with reversal of colostomy and mobilization of splenic flexure, postop day #3. She also has a history of right hemidiaphragm paralysis status post surgical plication at [facility] COPD chronic tobacco dependence diabetes generalized anxiety disorder obesity and is in acute exacerbation of COPD. Patient seemed be doing relatively well today. Lying flat in bed. Does have nasal O2 in place. Physical little weak. Not having any issues with her breathing at the current time. Not coughing. Not producing any phlegm. Progress note dated 02/17/2017 Nisha seems to be doing a bit better today. She is status post a perforated diverticuli requiring Maloney's procedure with end colostomy in August 2016. The patient had a laparotomy with reversal of colostomy and mobilization of splenic fax flexure. She is postop day #4. Also has a history of right hemidiaphragm paralysis status post surgical plication to [facility], COPD, chronic tobacco dependence, diabetes, anxiety, obesity, and COPD. All all the patient is doing reasonably well. Still a bit weak. Seemed a bit more awake and alert today. Not coughing. Not producing any phlegm. No nausea vomiting or diarrhea. Objective - Vital Signs Vital signs: Vital Signs Temp 98.2 F 02/17/17 07:00 Pulse 78 02/17/17 09:50 Resp 16 02/17/17 07:17 BP 130/67 02/17/17 09:50 Pulse Ox 94 L 02/17/17 08:51 Intake & Output 02/16/17 02/17/17 02/17/17 18:59 06:59 18:59 Intake Total 750 Output Total 20 40 40 Balance -20 710 -40 Intake: Oral 750 Output: Drainage 20 40 40 Anterior Abdomen 20 40 40 Other: Voiding Method Toilet Toilet # Voids 2 1 - Exam No acute distress, oriented 3. HEENT examination is grossly unremarkable. Mucous membranes are moist. No oral lesions. Nasal O2 in place. Neck supple. Full range of motion. No adenopathy or thyromegaly. Neck veins are flat. Cardiovascular examination reveals regular rhythm rate. S1-S2 normal. No S3- S4 or murmur. Lungs reveal mostly clear breath sounds. A few scattered rhonchi. No wheezes or crackles. Breath sounds are equal. Abdomen a little tense. Mild pain on palpation. A Bentley-Li drain is noted. Extremities are intact. No cyanosis clubbing or edema. Skin without rash. - Labs CBC & Chem 7: 02/17/17 07:21 02/17/17 07:21 Labs: Abnormal Lab Results - Last 24 Hours (Table) 02/16/17 02/16/17 02/16/17 Range/Units 11:35 17:39 20:10 RBC (3.80-5.40) m/uL Hgb (11.4-16.0) gm/dL Hct (34.0-46.0) % RDW (11.5-15.5) % BUN (7-17) mg/dL Glucose (74-99) mg/dL POC Glucose (mg/dL) 192 H 151 H 195 H (75-99) mg/dL Calcium (8.4-10.2) mg/dL Total Protein (6.3-8.2) g/dL Albumin (3.5-5.0) g/dL 02/17/17 02/17/17 02/17/17 Range/Units 06:52 07:21 07:21 RBC 3.23 L (3.80-5.40) m/uL Hgb 9.2 L (11.4-16.0) gm/dL Hct 28.7 L (34.0-46.0) % RDW 16.3 H (11.5-15.5) % BUN 20 H (7-17) mg/dL Glucose 106 H (74-99) mg/dL POC Glucose (mg/dL) 119 H (75-99) mg/dL Calcium 8.3 L (8.4-10.2) mg/dL Total Protein 4.9 L (6.3-8.2) g/dL Albumin 2.6 L (3.5-5.0) g/dL Assessment and Plan (1) History of colostomy reversal Status: Acute (2) Parastomal hernia Status: Acute (3) Postop check Status: Acute (4) Anxiety Status: Acute (5) COPD (chronic obstructive pulmonary disease) Status: Acute (6) Diaphragmatic paralysis Status: Acute (7) Perforation of sigmoid colon due to diverticulitis Status: Acute Plan: Plan dated 02/16/2017. The patient seemed be doing relatively well. We'll continue to follow. Likely discharge in a day or so. From the pulmonary standpoint she is doing well. The patient continued continues to have pain medication provided her. The patient will continue on incentive spirometer. Recommend deep breathing coughing and clearing her secretions. No additional recommendations are made. Plan dated 02/17/2017 We will continue to follow. Encourage the patient to deep breathe cough and clear secretions. Also PU she should be using the incentive spirometer every hour while awake. We'll continue with all the other medications and so forth. No additional patients at this time. Time with Patient: Less than 30
--- NOTE | 2017-02-17 15:45 | P.PN ---
Subjective Patient is complaining of persistent wheezing today. She denies shortness of breath. On exam her lungs are clear. She is having only very mild end expiratory wheezing. O2 sats ration within acceptable range on room air. Objective - Vital Signs Vital signs: Vital Signs Temp 98.2 F 02/17/17 07:00 Pulse 92 02/17/17 15:29 Resp 16 02/17/17 07:17 BP 130/67 02/17/17 09:50 Pulse Ox 94 L 02/17/17 08:51 Intake & Output 02/16/17 02/17/17 02/17/17 18:59 06:59 18:59 Intake Total 750 Output Total 20 40 40 Balance -20 710 -40 Intake: Oral 750 Output: Drainage 20 40 40 Anterior Abdomen 20 40 40 Other: Voiding Method Toilet Toilet # Voids 2 1 1 - Exam General: The patient is awake and alert, in no distress Eye: there is normal conjunctiva bilaterally. Neck: The neck is supple, there is no JVD. Cardiovascular: Normal S1-S2, no S3-S4, no murmurs. Respiratory: Lungs clear to auscultation bilaterally Gastrointestinal: Abdomen is soft, nontender Musculoskeletal: There is no pedal edema. Neurological:. Speech is normal. Skin: Skin is warm and dry - Labs CBC & Chem 7: 02/17/17 07:21 02/17/17 07:21 Labs: Abnormal Lab Results - Last 24 Hours (Table) 02/16/17 02/16/17 02/17/17 Range/Units 17:39 20:10 06:52 RBC (3.80-5.40) m/uL Hgb (11.4-16.0) gm/dL Hct (34.0-46.0) % RDW (11.5-15.5) % BUN (7-17) mg/dL Glucose (74-99) mg/dL POC Glucose (mg/dL) 151 H 195 H 119 H (75-99) mg/dL Calcium (8.4-10.2) mg/dL Total Protein (6.3-8.2) g/dL Albumin (3.5-5.0) g/dL 02/17/17 02/17/17 Range/Units 07:21 07:21 RBC 3.23 L (3.80-5.40) m/uL Hgb 9.2 L (11.4-16.0) gm/dL Hct 28.7 L (34.0-46.0) % RDW 16.3 H (11.5-15.5) % BUN 20 H (7-17) mg/dL Glucose 106 H (74-99) mg/dL POC Glucose (mg/dL) (75-99) mg/dL Calcium 8.3 L (8.4-10.2) mg/dL Total Protein 4.9 L (6.3-8.2) g/dL Albumin 2.6 L (3.5-5.0) g/dL Assessment and Plan Plan: 1. status post laparoscopy, laparotomy with reversal of colostomy and mobilization of splenic flexure. With a History of Maloney's procedure and colostomy for perforated diverticulitis in August 2016 2. Diabetes mellitus type 2: on sliding scale coverage. 3. History of right hemidiaphragm paralysis with previous repair in November 2016 4. History of COPD: No evidence of exacerbation 5. Generalized anxiety disorder: Xanax resumed 6. Hypotension: Improved with IV fluids. They'll francisco remains on hold. 7. Acute COPD exacerbation: Patient was given 1 dose of IV Solu-Medrol. Continue breathing treatments. Pulmonary service following. Patient showing improvement.
[2017-02-17 15:55] LABS: Glucose,Whole Blood 144 mg/dL (75-99)
--- NOTE | 2017-02-17 17:26 | P.PN ---
Subjective Principal diagnosis: sHe is not Having nausea or vomiting. Not passing flatus. She passed a small amount of blood per rectum. Her blood pressure Did drop a little bit this morning. She had just received her blood pressure medication. She is not really having pain it's more discomfort. She is hungry. The patient is doing well. Passing flatus but no BM yet. She feels it will be soon. Has some feeling of wheezing in her chest. Ambulating well. Objective - Vital Signs Vital signs: Vital Signs Temp 98.2 F 02/17/17 07:00 Pulse 92 02/17/17 15:29 Resp 16 02/17/17 07:17 BP 130/67 02/17/17 09:50 Pulse Ox 94 L 02/17/17 08:51 Intake & Output 02/16/17 02/17/17 02/17/17 18:59 06:59 18:59 Intake Total 750 Output Total 20 40 40 Balance -20 710 -40 Intake: Oral 750 Output: Drainage 20 40 40 Anterior Abdomen 20 40 40 Other: Voiding Method Toilet Toilet # Voids 2 1 1 - Constitutional General appearance: Present: cooperative, no acute distress - Respiratory Respiratory: bilateral: CTA, diminished (minimally at the bases) - Cardiovascular Rhythm: regular - Gastrointestinal General gastrointestinal: Present: normal bowel sounds, soft Localized gastrointestinal: surgical scar: diffuse (incisions healing without cellulitis. YUVAL serous) - Labs CBC & Chem 7: 02/17/17 07:21 02/17/17 07:21 Labs: Abnormal Lab Results - Last 24 Hours (Table) 02/16/17 02/16/17 02/17/17 Range/Units 17:39 20:10 06:52 RBC (3.80-5.40) m/uL Hgb (11.4-16.0) gm/dL Hct (34.0-46.0) % RDW (11.5-15.5) % BUN (7-17) mg/dL Glucose (74-99) mg/dL POC Glucose (mg/dL) 151 H 195 H 119 H (75-99) mg/dL Calcium (8.4-10.2) mg/dL Total Protein (6.3-8.2) g/dL Albumin (3.5-5.0) g/dL 02/17/17 02/17/17 02/17/17 Range/Units 07:21 07:21 12:49 RBC 3.23 L (3.80-5.40) m/uL Hgb 9.2 L (11.4-16.0) gm/dL Hct 28.7 L (34.0-46.0) % RDW 16.3 H (11.5-15.5) % BUN 20 H (7-17) mg/dL Glucose 106 H (74-99) mg/dL POC Glucose (mg/dL) 144 H (75-99) mg/dL Calcium 8.3 L (8.4-10.2) mg/dL Total Protein 4.9 L (6.3-8.2) g/dL Albumin 2.6 L (3.5-5.0) g/dL Assessment and Plan (1) Postop check Status: Acute (2) Parastomal hernia Status: Acute Plan: Will remove YUVAL drain. Anticipate discharge tomorrow with home health to change packing at previous ostomy site
[2017-02-17 17:36] LABS: Glucose,Whole Blood 186 mg/dL (75-99)
[2017-02-17] MEDS: QUEtiapine 25 MG TAB PO SCH (20:13)
[2017-02-17 20:20] LABS: Glucose,Whole Blood 188 mg/dL (75-99)
[2017-02-17] MEDS: METOPROLOL SUCCINATE (ER) 100 MG TAB.ER.24H PO SCH (20:21)
[2017-02-17] MEDS: TEMAZEPAM 30 MG CAP PO SCH (20:21)
[2017-02-17] MEDS: ALPRAZolam 0.5 MG TAB PO PRN (22:08)
[2017-02-18] MEDS: traMADol 50 MG TAB PO PRN (05:40)
[2017-02-18] MEDS: ALPRAZolam 0.5 MG TAB PO PRN (05:41)
[2017-02-18 07:04] VITALS: BP 138/64; RESP 20; TEMP 97.9
[2017-02-18 07:08] LABS: Glucose,Whole Blood 117 mg/dL (75-99)
[2017-02-18] MEDS: ALBUTEROL NEBULIZED 2.5 MG/3 ML INHALATION PRN (07:20)
[2017-02-18 07:29] VITALS: PULSE 84
[2017-02-18] MEDS: FAMOTIDINE 20 MG TAB PO SCH (08:32)
[2017-02-18] MEDS: CHOLECALCIFEROL 1,000 UNIT TAB PO SCH (08:32)
[2017-02-18] MEDS: ASPIRIN 81 MG PO SCH (08:34)
[2017-02-18] MEDS: LORATADINE 10 MG TAB PO SCH (08:34)
[2017-02-18] MEDS: INSULIN LISPRO (humaLOG) 300 UNIT/3 ML VIAL SQ SCH (08:36)
--- NOTE | 2017-02-18 11:43 | P.PN ---
Subjective Progress note dated 02/16/2017 This is a patient with a history of perforated diverticuli requiring Maloney's procedure with end colostomy in August 2016. The patient had were laparotomy with reversal of colostomy and mobilization of splenic flexure, postop day #3. 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 Patient seemed be doing relatively well today. Lying flat in bed. Does have nasal O2 in place. Physical little weak. Not having any issues with her breathing at the current time. Not coughing. Not producing any phlegm. Progress note dated 02/17/2017 Nisha seems to be doing a bit better today. She is status post a perforated diverticuli requiring Maloney's procedure with end colostomy in August 2016. The patient had a laparotomy with reversal of colostomy and mobilization of splenic fax flexure. She is postop day #4. 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 All all the patient is doing reasonably well. Still a bit weak. Seemed a bit more awake and alert today. Not coughing. Not producing any phlegm. No nausea vomiting or diarrhea. Progress note dated 02/18/2017. Nisha is doing well. She is a 76-year-old female with a history of perforated diverticuli requiring Maloney's procedure with end colostomy in August of this year. Subsequently, had a laparotomy with reversal colostomy on this admission and mobilization of splenic flexure. She is postop day #5. She has a history of recent diaphragm plication to [facility] for right hemidiaphragm paralysis. She is going to be discharged home today. Doing much better. She still does have a bit of a wheeze but otherwise is doing reasonably well. Denies any other complaints. We'll follow blood my partner in the office. Objective - Vital Signs Vital signs: Vital Signs Temp 97.9 F 02/18/17 07:00 Pulse 84 02/18/17 07:28 Resp 20 02/18/17 07:00 BP 138/64 02/18/17 07:00 Pulse Ox 98 02/18/17 07:00 Intake & Output 0902/18/17 02/18/17 18:59 06:59 18:59 Intake Total 980 Output Total 40 20 Balance -40 960 Weight 69.853 kg Intake: Oral 980 Output: Drainage 40 20 Anterior Abdomen 40 20 Other: Voiding Method Toilet # Voids 1 3 - Exam No acute distress, oriented 3. HEENT examination is grossly unremarkable. Mucous membranes are moist. No oral lesions. Nasal O2 in place. Neck supple. Full range of motion. No adenopathy or thyromegaly. Neck veins are flat. Cardiovascular examination reveals regular rhythm rate. S1-S2 normal. No S3- S4 or murmur. Lungs reveal mostly clear breath sounds. A few scattered rhonchi. No wheezes or crackles. Breath sounds are equal. Abdomen a little tense. Mild pain on palpation. A Bentley-Li drain is noted. Extremities are intact. No cyanosis clubbing or edema. Skin without rash. - Labs CBC & Chem 7: 02/17/17 07:21 02/17/17 07:21 Labs: Abnormal Lab Results - Last 24 Hours (Table) 02/17/17 02/17/17 02/17/17 Range/Units 12:49 17:34 20:17 POC Glucose (mg/dL) 144 H 186 H 188 H (75-99) mg/dL 02/18/17 Range/Units 07:06 POC Glucose (mg/dL) 117 H (75-99) mg/dL Assessment and Plan (1) History of colostomy reversal Status: Acute (2) Parastomal hernia Status: Acute (3) Postop check Status: Acute (4) Anxiety Status: Acute (5) COPD (chronic obstructive pulmonary disease) Status: Acute (6) Diaphragmatic paralysis Status: Acute (7) Perforation of sigmoid colon due to diverticulitis Status: Acute Plan: Plan dated 02/16/2017. The patient seemed be doing relatively well. We'll continue to follow. Likely discharge in a day or so. From the pulmonary standpoint she is doing well. The patient continued continues to have pain medication provided her. The patient will continue on incentive spirometer. Recommend deep breathing coughing and clearing her secretions. No additional recommendations are made. Plan dated 02/17/2017 We will continue to follow. Encourage the patient to deep breathe cough and clear secretions. Also PU she should be using the incentive spirometer every hour while awake. We'll continue with all the other medications and so forth. No additional patients at this time. Plan dated 02/18/2017 The patient's doing well. The patient will likely be discharged home today. The patient will follow-up with the surgeon, Dr. Siu and also will follow with my partner Dr. Nelson. The patient still does have a bit of a wheeze. Never did receive the Depo-Medrol shot that I ordered yesterday. Apparently was not put in by the nurse. No additional recommendations are made. We'll continue to follow. Prognosis is guarded given the severity of her COPD. Time with Patient: Less than 30
--- NOTE | 2017-02-18 11:54 | P.DS ---
Providers Date of admission: 02/12/17 06:39 Expected date of discharge: 02/18/17 Attending physician: Stephanie Siu Consults: 02/12/17 12:37 Consult Physician Routine Consulting Provider: Frederic Bowen Consult Reason/Comments: asthma, COPD Do you want consulting provider notified?: Yes 02/12/17 12:42 Consult Physician Routine Consulting Provider: Carlos Berg Consult Reason/Comments: medical management Do you want consulting provider notified?: Yes Primary care physician: Stated None - Discharge Diagnosis(es) (1) Postop check Current Visit: Yes Status: Acute (2) Parastomal hernia Current Visit: Yes Status: Acute (3) History of colostomy reversal Current Visit: Yes Status: Acute (4) Parastomal hernia without obstruction or gangrene Current Visit: Yes Status: Acute (5) COPD (chronic obstructive pulmonary disease) Current Visit: No Status: Acute (6) Hyperglycemia Current Visit: No Status: Acute Hospital Course: The patient presented for colostomy reversal and attempted repair of peristomal hernia. She had extensive intra-abdominal adhesions of the procedure was not completed laparoscopically. She was given prophylactic antibiotics, DVT and ulcer prophylaxis. She has gradually increased on her diet and activity. She was seen by medicine for her hyperglycemia. She was seen by pulmonary for her pre-existing COPD. She had 1 episode of some wheezing which responded to a dose of IV steroids and Lasix. By 913 she was felt to be stable for discharge Procedures: Reversal of colostomy Patient Condition at Discharge: Good Plan - Discharge Summary New Discharge Prescriptions: New traMADol HCl [Ultram] 50 mg PO Q4H PRN #30 tab PRN Reason: Pain No Action Aspirin 81 mg PO DAILY Cholecalciferol [Vitamin D3] 1,000 unit PO DAILY Temazepam [Restoril] 30 mg PO HS INSULIN LISPRO (humaLOG) [humaLOG (formulary)] See Protocol SQ ACHS Metoprolol Succinate (ER) [Toprol XL] 100 mg PO DAILY #30 tab.er.24h Albuterol Nebulized [Ventolin Nebulized] 2.5 mg INHALATION RT-Q4H PRN #30 nebu PRN Reason: Shortness Of Breath Fexofenadine HCl [Adelita Allergy] 180 mg PO DAILY Albuterol Sulfate [Proair Hfa] 1 - 2 puff INHALATION RT-Q6H PRN PRN Reason: Shortness Of Breath Ibuprofen [Motrin] 800 mg PO Q8H PRN PRN Reason: Pain Amoxicillin 500 mg PO TID Insulin Glargine,Hum.rec.anlog [Toujeo Solostar] 15 units SQ HS ALPRAZolam [Xanax] 0.25 - 0.5 mg PO BID PRN PRN Reason: Anxiety Discharge Medication List Aspirin 81 mg PO DAILY 11/20/13 [History] Cholecalciferol [Vitamin D3] 1,000 unit PO DAILY 03/19/15 [History] INSULIN LISPRO (humaLOG) [humaLOG (formulary)] See Protocol SQ ACHS 09/20/16 [ History] Temazepam [Restoril] 30 mg PO HS 09/20/16 [History] Albuterol Nebulized [Ventolin Nebulized] 2.5 mg INHALATION RT-Q4H PRN #30 nebu 09/24/16 [Rx] Metoprolol Succinate (ER) [Toprol XL] 100 mg PO DAILY #30 tab.er.24h 09/24/16 [ Rx] ALPRAZolam [Xanax] 0.25 - 0.5 mg PO BID PRN 02/05/17 [History] Albuterol Sulfate [Proair Hfa] 1 - 2 puff INHALATION RT-Q6H PRN 02/05/17 [ History] Amoxicillin 500 mg PO TID 02/05/17 [History] Fexofenadine HCl [Adelita Allergy] 180 mg PO DAILY 02/05/17 [History] Ibuprofen [Motrin] 800 mg PO Q8H PRN 02/05/17 [History] Insulin Glargine,Hum.rec.anlog [Toujeo Solostar] 15 units SQ HS 02/05/17 [ History] traMADol HCl [Ultram] 50 mg PO Q4H PRN #30 tab 02/17/17 [Rx] Follow up Appointment(s)/Referral(s): [facility], [NON-STAFF] - (Change aquacel AG at ostomy site M,W,F and cover with light dressing. ) Stephanie Siu DO [Doctor of Osteopathic Medicine] - 02/26/17 2:00 pm Patient Instructions/Handouts: Laparoscopic Colostomy Reversal (DC), Open Colostomy Reversal (DC) Activity/Diet/Wound Care/Special Instructions: May shower. Continue to use incentive spirometer for 2 weeks. Eat easy to digest foods for 2 weeks. Expect BM to be more frequent, 2-3 times a day for 1- 2 weeks. A small amount of blood would be expected. Call if questions or concerns Discharge Disposition: HOME SELF-CARE
--- NOTE | 2017-02-18 12:36 | P.PN ---
Subjective \ Patient is doing well today. She is looking forward to be discharged home. Objective - Vital Signs Vital signs: Vital Signs Temp 97.9 F 02/18/17 07:00 Pulse 84 02/18/17 07:28 Resp 20 02/18/17 07:00 BP 138/64 02/18/17 07:00 Pulse Ox 98 02/18/17 07:00 Intake & Output 02/17/17 02/18/17 02/18/17 18:59 06:59 18:59 Intake Total 980 Output Total 40 20 1000 Balance -40 960 -1000 Weight 69.853 kg Intake: Oral 980 Output: Drainage 40 20 Anterior Abdomen 40 20 Urine 1000 Other: Voiding Method Toilet # Voids 1 3 3 - Exam General: The patient is awake and alert, in no distress Eye: there is normal conjunctiva bilaterally. Neck: The neck is supple, there is no JVD. Cardiovascular: Normal S1-S2, no S3-S4, no murmurs. Respiratory: Lungs clear to auscultation bilaterally Gastrointestinal: Abdomen is soft, nontender Musculoskeletal: There is no pedal edema. Neurological:. Speech is normal. Skin: Skin is warm and dry - Labs CBC & Chem 7: 02/17/17 07:21 02/17/17 07:21 Labs: Abnormal Lab Results - Last 24 Hours (Table) 02/17/17 02/17/17 02/17/17 Range/Units 12:49 17:34 20:17 POC Glucose (mg/dL) 144 H 186 H 188 H (75-99) mg/dL 02/18/17 Range/Units 07:06 POC Glucose (mg/dL) 117 H (75-99) mg/dL Assessment and Plan Plan: 1. status post laparoscopy, laparotomy with reversal of colostomy and mobilization of splenic flexure. With a History of Maloney's procedure and colostomy for perforated diverticulitis in August 2016 2. Diabetes mellitus type 2: on sliding scale coverage. 3. History of right hemidiaphragm paralysis with previous repair in November 2016 4. History of COPD: No evidence of exacerbation 5. Generalized anxiety disorder: Xanax resumed 6. Hypotension: Improved with IV fluids. They'll francisco remains on hold. 7. Acute COPD exacerbation: Patient was given 1 dose of IV Solu-Medrol. Continue breathing treatments. Pulmonary service following. Patient showing improvement. Patient is medically cleared for discharge. Please refer to the medication reconciliation note for mental illness. Follow-up with me in the office in one week.
== END 2017-02-18 13:21 | disposition home health service (06) | DRG 330 ==
LOC: 2ORMAIN 06:39 → 3SUR 12:29
PROVIDERS: ADMIT Surgery; ATTEND Surgery
PROC: 0DBP0ZZ Excision of Rectum, Open Approach (ICD-10-PCS; 2017-02-12)
PROC: 0DBN0ZZ Excision of Sigmoid Colon, Open Approach (ICD-10-PCS; principal; 2017-02-12 08:30)
DX: K43.5 Parastomal hernia without obstruction or gangrene (principal); K62.5 Hemorrhage of anus and rectum; J44.1 Chronic obstructive pulmonary disease with (acute) exacerbation; D62 Acute posthemorrhagic anemia; I95.9 Hypotension, unspecified; E11.65 Type 2 diabetes mellitus with hyperglycemia; E66.01 Morbid (severe) obesity due to excess calories; K66.0 Peritoneal adhesions (postprocedural) (postinfection); F41.1 Generalized anxiety disorder; I10 Essential (primary) hypertension; G89.29 Other chronic pain; M19.90 Unspecified osteoarthritis, unspecified site; M54.9 Dorsalgia, unspecified; T38.0X5A Adverse effect of glucocorticoids and synthetic analogues, initial encounter; T39.8X5A Adverse effect of other nonopioid analgesics and antipyretics, not elsewhere classified, initial encounter; Z43.3 Encounter for attention to colostomy; Z79.82 Long term (current) use of aspirin; Z79.899 Other long term (current) drug therapy; Z79.4 Long term (current) use of insulin; Z87.891 Personal history of nicotine dependence; Z53.31 Laparoscopic surgical procedure converted to open procedure; Z88.1 Allergy status to other antibiotic agents; Z88.5 Allergy status to narcotic agent; Z88.8 Allergy status to other drugs, medicaments and biological substances; Y92.239 Unspecified place in hospital as the place of occurrence of the external cause
CPT/HCPCS: 36415; 71010; 71020; 80053; 82306; 82565; 82652; 83036; 84132; 84439; 84443; 84450; 84460; 84520; 85025; 94640; 94760

== ENCOUNTER → 2017-04-28 | Outpatient (CLI) | payer MEDICARE ==
--- NOTE | 2017-04-28 15:28 | WWHP ---
[facility] - HISTORY AND PHYSICAL CHIEF COMPLAINT: The patient is here for her routine gynecologic exam and mammogram. HPI: This is a 76-year-old, G5, P4-0-1-4 with an LMP of 1963 who is status post vaginal hysterectomy and later BSO for benign reasons. The patient is without gynecologic complaints. PAST MEDICAL HISTORY: Chronic hypertension, seasonal allergies, chronic bronchitis, gastroesophageal reflux disease, chronic back problems, osteopenia, type 2 diabetes, and diverticular disease. MEDICATIONS: 1. Metoprolol 50 mg daily. 2. Humalog insulin p.r.n. 3. Toujeo p.r.n. 4. Levaquin 750 mg daily. She is going to be completing her course soon. 5. Biotin 1000 mg daily. 6. PreserVision eye vitamin daily. 7. Aspirin 81 mg daily. ALLERGIES: MORPHINE, CODEINE, DARVOCET, LORTAB, AND VICODIN. PAST SURGICAL HISTORY: Vaginal hysterectomy in 1963, BSO 2000, rectocele repair 2000. Multiple breast biopsies in the past. Multiple back surgeries in the past. A cervical fusion surgery 1986, laparotomy for ruptured diverticulum 2016 and diaphragm hernia surgery repair in 2016 and a colostomy reversal 2016. Colonoscopy 2011. 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 Has no history of STDs in the past. SOCIAL HISTORY: She denies tobacco, alcohol, and drug use. She has been since 1979, but is not sexually active. FAMILY HISTORY: Maternal aunt had breast cancer. REVIEW OF SYSTEMS: She has lost about 25 pounds following her ruptured diverticulum. RESPIRATORY: She she is getting over bronchitis and is on antibiotics. She denies cardiac or GI problems. She denies maltreatment or falling. : She denies any significant urinary leakage problems. PHYSICAL EXAM: Blood pressure 117/75, height 5 feet 2 inches, weight 152 pounds. BMI 28. Temperature 98, pulse 112. This is a well-developed, well-nourished white female who is alert and oriented x3, in no acute distress. HEENT is within normal limits. NECK: Supple without mass or thyromegaly. CHEST AND LUNGS: Clear to auscultation. HEART: Mild tachycardia. Breasts are without mass or discharge. Axillary exam is negative for adenopathy. BACK: Negative for CVA tenderness. ABDOMEN: She has multiple well-healed incisions from her surgeries. The abdomen is soft, nontender, without palpable masses. PELVIC EXAM: External genitalia area reveals moderate atrophy without lesions. Vagina reveals moderate atrophy and there is some thinning and shortening of the vagina consistent with her previous surgeries. There are no vaginal masses. Bimanual exam is negative for mass or tenderness. Rectovaginal exam is negative for mass or tenderness and is negative for occult blood. EXTREMITIES: Nontender. IMPRESSION: 1. 76-year-old menopausal female, status post vaginal hysterectomy with later BSO for benign reasons with normal gynecologic exam. 2. History of osteopenia. The patient is declining any treatment or further testing at this time. 3. Multiple medical problems. PLAN: 1. Pap smears have been discontinued. 2. Self breast examination was discussed. 3. Mammogram will be done today. 4. Osteoporosis prevention was discussed. We discussed the option of bone density testing and treatment if she has osteoporosis. She is declining this at this time. 5. She does not get flu shot since she had a reaction with a flu shot in the past. 6. She will return in 1 year indication. MMODL / IJN: [id number] /
--- NOTE | 2017-04-29 10:48 | MM ---
Reason for exam: screening (asymptomatic). Last mammogram was performed 1 year and 2 months ago. History: Patient is postmenopausal. Family history of breast cancer in maternal aunt and breast cancer in maternal cousin. Benign cyst aspiration of the right breast. Benign excisional biopsy of the left breast. Took estrogen for 13 years beginning at age 58. Took progesterone for 13 years beginning at age 58. Physical Findings: A clinical breast exam by your physician is recommended on an annual basis and results should be correlated with mammographic findings. MG 3D Screening Mammo W/Cad Bilateral CC and MLO view(s) were taken. Prior study comparison: February 27, 2016, bilateral MG 3d screening mammo w/cad. January 15, 2015, bilateral MG screening mammo w CAD. The breast tissue is almost entirely fat. No significant changes when compared with prior studies. ASSESSMENT: Benign, BI-RAD 2 RECOMMENDATION: Routine screening mammogram of both breasts in 1 year.
== END | disposition home or self-care (01) ==
LOC: WWCWWP 13:21
PROVIDERS: ATTEND Obstetrics & Gynecology
DX: Z12.31 Encounter for screening mammogram for malignant neoplasm of breast (principal)
CPT/HCPCS: 77063; G0202

== ENCOUNTER 2017-06-09 17:31 | Emergency (ER) | payer MEDICARE ==
[2017-06-09] MEDS ORDERED: RX INFO: IV CONTRAST WAS GIVEN 1 EACH MISC MISCELLANE PRN (18:06)
[2017-06-09] MEDS ORDERED: HYDROmorphone 1 MG/ML 1 ML SYRINGE IVP STA (18:06)
[2017-06-09] MEDS ORDERED: ONDANSETRON 4 MG/2 ML VIAL IVP STA (18:06)
[2017-06-09] MEDS ORDERED: SODIUM CHLORIDE 0.9% 500 ML IV STA (18:06)
--- NOTE | 2017-06-09 18:13 | ED ---
Abdominal Pain HPI - General Chief Complaint: Abdominal Pain Stated Complaint: Rash on back, leg pain, Abd Pain Time Seen by Provider: 06/09/17 17:48 Source: patient Mode of arrival: ambulatory Limitations: no limitations - History of Present Illness Initial Comments: 76 year-old female patient presents to the emergency department today for complaints of upper abdominal pain that radiates to her back. Patient states the symptoms started approximate 4-5 days ago. She states that she has been very nauseated with this however has not vomited. She states that she was able to eat and drink today however eating breakfast made her feel more nauseated. She states the pain is currently about a 5 out of 10 on the pain scale. States that it does wax and wane. She states it is throbbing intense pain. She states her abdomen feels swollen. She denies any fever or chills. Denies any hematuria, dysuria, urinary frequency, urinary urgency. Denies any constipation or diarrhea. She is also reporting a rash to the right mid back. She states that for 4-5 days the back area was itchy and tingly. States that yesterday a rash did appear. She states that she has had she goes in the past this seems consistent with her previous symptoms. Patient denies any recent shortness breath, chest pain, back pain, numbness, tingling, dizziness, weakness , headache, visual changes, or any other complaints. - Related Data Home Medications Medication Instructions Recorded Confirmed Aspirin 81 mg PO DAILY 11/20/13 06/09/17 Cholecalciferol [Vitamin D3] 1,000 unit PO DAILY 03/19/15 06/09/17 Temazepam [Restoril] 30 mg PO HS 09/20/16 06/09/17 ALPRAZolam [Xanax] 0.25 - 0.5 mg PO BID PRN 02/05/17 06/09/17 Albuterol Sulfate [Proair Hfa] 1 - 2 puff INHALATION RT-Q6H PRN 02/05/17 Insulin Glargine,Hum.rec.anlog 15 units SQ HS 02/05/17 06/09/17 [Toujeo Solostar] Biotin 1000mg 1,000 mg PO DAILY 06/09/17 06/09/17 Ibuprofen [Motrin] 600 mg PO HS 06/09/17 06/09/17 Insulin Lispro [humaLOG Kwikpen] See Protocol SQ ACHS 06/09/17 06/09/17 Metoprolol Succinate [Toprol XL] 50 mg PO DAILY 06/09/17 06/09/17 Previous Rx's Medication Instructions Recorded Albuterol Nebulized [Ventolin 2.5 mg INHALATION RT-Q4H PRN #30 09/24/16 Nebulized] nebu Acyclovir [Zovirax] 800 mg PO Q4H #35 tab 06/09/17 Levofloxacin [Levaquin] 500 mg PO DAILY #5 tab 06/09/17 Allergies Allergy/AdvReac Type Severity Reaction Status Date / Time meperidine HCl [From Demerol] Allergy Severe Anaphylaxis Verified 06/09/17 18:40 shellfish derived [Shellfish] Allergy Severe Anaphylaxis Verified 06/09/17 18:40 morphine Allergy Intermediate SEVERE Verified 06/09/17 18:40 ITCHING, HARD TO BREATH cefuroxime axetil Allergy Unknown Verified 06/09/17 18:40 [From Ceftin] codeine Allergy Abdominal Verified 06/09/17 18:40 Pain, DYSPNEA erythromycin base Allergy Nausea Verified 06/09/17 18:40 [From E-Mycin] fentanyl Allergy FELT Verified 06/09/17 18:40 DRUGGED FOR LONG TIME hydrocodone bitartrate Allergy Abdominal Verified 06/09/17 18:40 [From Lortab] Pain, DYSPNEA lisinopril Allergy Anxiety, Verified 06/09/17 18:40 CAN'T FUNCTION lorazepam [From Ativan] Allergy DILUSIONS Verified 06/09/17 18:40 milk Allergy Diarrhea Verified 06/09/17 18:40 oxycodone HCl [From Percocet] Allergy DYSPNEA, Verified 06/09/17 18:40 ITCHING Review of Systems ROS Statement: Those systems with pertinent positive or pertinent negative responses have been documented in the HPI. ROS Other: All systems not noted in ROS Statement are negative. Past Medical History Past Medical History: Diabetes Mellitus, Hypertension, Musculoskeletal Disorder , Pneumonia, Skin Disorder Additional Past Medical History / Comment(s): MINOR Hiatal Hernia. HX Shingles. CHRONIC BACK PAIN. DIVERTICULITIS W/ PERFORATION 08/23/16, HAS COLOSTOMY; POST -OP PNEUMONIA, PARLYZED DIAPHRAGM. SKIN DRY, ITCHING. CURRENT BRONCHITS, FINISHING 2ND AB RX, SAW DR WOOTEN FOR CLEARANCE. History of Any Multi-Drug Resistant Organisms: None Reported Past Surgical History: Back Surgery, Bowel Resection, Heart Catheterization Additional Past Surgical History / Comment(s): Mult Back Surgeries-Back, Neck Fusions. Epidural Spinal INJ. Levi Cataracts. LAPAROSCOPY, MORGAN'S PROC, COLOSTOMY 08/23/16. REPAIR PARALYZED DIAPHRAGM 11/14/16. reversal of colostomy in february, Past Anesthesia/Blood Transfusion Reactions: Previous Problems w/ Anesthesia Additional Past Anesthesia/Blood Transfusion Reaction / Comment(s): Stopped breathing POST-OP R/T ALLERGY TO PAIN RX, "over medicated" - had to get narcan. Past Psychological History: Anxiety Smoking Status: Former smoker Past Alcohol Use History: None Reported Past Drug Use History: None Reported - Past Family History Brother(s) Family Medical History: Cancer General Exam Limitations: no limitations General appearance: alert, in no apparent distress, other (This is a well- developed, well-nourished adult female patient in no acute distress. Vital signs upon presentation were temperature 98.1F, pulse 111, respirations 20, blood pressure 137/65, pulse ox 97% on room air.) Eye exam: Present: normal appearance, PERRL, EOMI. Absent: scleral icterus, conjunctival injection, periorbital swelling ENT exam: Present: normal exam, normal oropharynx, mucous membranes moist Respiratory exam: Present: normal lung sounds bilaterally. Absent: respiratory distress, wheezes, rales, rhonchi, stridor Cardiovascular Exam: Present: normal rhythm, tachycardia, normal heart sounds. Absent: systolic murmur, diastolic murmur, rubs, gallop, clicks GI/Abdominal exam: Present: soft, tenderness (Mid epigastric tenderness, right upper quadrant tenderness, left lower quadrant tenderness.), normal bowel sounds. Absent: distended, guarding, rebound, rigid Back exam: Present: rash noted (Rash noted to the right mid back, a few scattered papules, following the T7-T8 dermatome distribution) Neurological exam: Present: alert, oriented X3, CN II-XII intact Psychiatric exam: Present: normal affect, normal mood Skin exam: Present: warm, dry, intact, normal color. Absent: rash Course Vital Signs 06/09/17 06/09/17 06/09/17 17:42 21:56 23:29 Temperature 98.1 F 96.9 F L Pulse Rate 111 H 75 75 Respiratory 20 17 16 Rate Blood Pressure 137/65 136/66 136/67 O2 Sat by Pulse 97 100 93 L Oximetry Medical Decision Making - Medical Decision Making 76 year-old female patient presented to the emergency department today for evaluation of right upper quadrant abdominal pain that radiated into her back. Patient is also reporting a rash to her back with tingling, itching, and burning pain to the area. Physical examination did reveal some midepigastric and right upper quadrant tenderness. Rash to the back did reveal several scattered papules with no surrounding erythema. They do follow a distribution over the T7 to T8 dermatome. Labs are reviewed and did reveal an elevated BUN at 25, an elevated creatinine at 1.2. GFR 44. This appears to be a new finding for the patient. We did administer saline fluid bolus. Urinalysis did show cloudy appearance with positive nitrites, moderate leukocyte esterase, 16 white blood cells, many bacteria, and rare mucous. We did obtain a KUB x-ray of the abdomen which showed an overall nonobstructive bowel gas pattern. As patient has had many recent abdominal surgeries we proceeded with CT scanning of the abdomen and pelvis without contrast due to her current renal function. Findings showed no acute cause for her abdominal pain. Gallbladder was on the upper limits of normal size so we did proceed with ultrasound of the abdomen to further differentiate as of her pain. Ultrasound of the abdomen was unremarkable. Findings were discussed with the patient. She feels comfortable being discharged home at this time. She will be placed on Levaquin for 5 days for UTI. She understands that she should follow-up with her primary care physician for further evaluation and repeat BUN and creatinine levels. She is instructed to return here immediately should her symptoms change, worsen, or she develops any new symptoms. She verbalizes understanding and agrees with this plan. - Lab Data Result diagrams: 06/09/17 18:14 06/09/17 18:14 Lab Results 06/09/17 06/09/17 06/09/17 Range/Units 18:14 18:14 18:14 WBC 6.4 (3.8-10.6) k/uL RBC 5.60 H (3.80-5.40) m/uL Hgb 14.9 (11.4-16.0) gm/dL Hct 45.6 (34.0-46.0) % MCV 81.4 (80.0-100.0) fL MCH 26.5 (25.0-35.0) pg MCHC 32.6 (31.0-37.0) g/dL RDW 16.2 H (11.5-15.5) % Plt Count 181 (150-450) k/uL Neutrophils % 56 % Lymphocytes % 32 % Monocytes % 7 % Eosinophils % 1 % Basophils % 0 % Neutrophils # 3.6 (1.3-7.7) k/uL Lymphocytes # 2.1 (1.0-4.8) k/uL Monocytes # 0.5 (0-1.0) k/uL Eosinophils # 0.1 (0-0.7) k/uL Basophils # 0.0 (0-0.2) k/uL Anisocytosis Slight Sodium 140 (137-145) mmol/L Potassium 4.3 (3.5-5.1) mmol/L Chloride 106 (98-107) mmol/L Carbon Dioxide 22 (22-30) mmol/L Anion Gap 12 mmol/L BUN 25 H (7-17) mg/dL Creatinine 1.20 H (0.52-1.04) mg/dL Est GFR (MDRD) Af Amer 53 (>60 ml/min/1.73 sqM) Est GFR (MDRD) Non-Af 44 (>60 ml/min/1.73 sqM) Glucose 166 H (74-99) mg/dL Plasma Lactic Acid [place] 1.6 (0.7-2.0) mmol/L Calcium 9.7 (8.4-10.2) mg/dL Total Bilirubin 0.5 (0.2-1.3) mg/dL AST 24 (14-36) U/L ALT 35 (9-52) U/L Alkaline Phosphatase 93 (38-126) U/L Troponin I (0.000-0.034) ng/mL Total Protein 7.1 (6.3-8.2) g/dL Albumin 4.0 (3.5-5.0) g/dL Amylase 60 (30-110) U/L Lipase 141 (23-300) U/L Urine Color Urine Appearance (Clear) Urine pH (5.0-8.0) Ur Specific [place] (1.001-1.035) Urine Protein (Negative) Urine Glucose (UA) (Negative) Urine Ketones (Negative) Urine Blood (Negative) Urine Nitrite (Negative) Urine Bilirubin (Negative) Urine Urobilinogen (<2.0) mg/dL Ur Leukocyte Esterase (Negative) Urine RBC (0-5) /hpf Urine WBC (0-5) /hpf Ur Squamous Epith Cells (0-4) /hpf Urine Bacteria (None) /hpf Urine Mucus (None) /hpf 06/09/17 06/09/17 Range/Units 18:14 19:48 WBC (3.8-10.6) k/uL RBC (3.80-5.40) m/uL Hgb (11.4-16.0) gm/dL Hct (34.0-46.0) % MCV (80.0-100.0) fL MCH (25.0-35.0) pg MCHC (31.0-37.0) g/dL RDW (11.5-15.5) % Plt Count (150-450) k/uL Neutrophils % % Lymphocytes % % Monocytes % % Eosinophils % % Basophils % % Neutrophils # (1.3-7.7) k/uL Lymphocytes # (1.0-4.8) k/uL Monocytes # (0-1.0) k/uL Eosinophils # (0-0.7) k/uL Basophils # (0-0.2) k/uL Anisocytosis Sodium (137-145) mmol/L Potassium (3.5-5.1) mmol/L Chloride (98-107) mmol/L Carbon Dioxide (22-30) mmol/L Anion Gap mmol/L BUN (7-17) mg/dL Creatinine (0.52-1.04) mg/dL Est GFR (MDRD) Af Amer (>60 ml/min/1.73 sqM) Est GFR (MDRD) Non-Af (>60 ml/min/1.73 sqM) Glucose (74-99) mg/dL Plasma Lactic Acid [place] (0.7-2.0) mmol/L Calcium (8.4-10.2) mg/dL Total Bilirubin (0.2-1.3) mg/dL AST (14-36) U/L ALT (9-52) U/L Alkaline Phosphatase (38-126) U/L Troponin I <0.012 (0.000-0.034) ng/mL Total Protein (6.3-8.2) g/dL Albumin (3.5-5.0) g/dL Amylase (30-110) U/L Lipase (23-300) U/L Urine Color Yellow Urine Appearance Cloudy H (Clear) Urine pH 5.0 (5.0-8.0) Ur Specific [place] 1.017 (1.001-1.035) Urine Protein Negative (Negative) Urine Glucose (UA) Negative (Negative) Urine Ketones Negative (Negative) Urine Blood Negative (Negative) Urine Nitrite Positive H (Negative) Urine Bilirubin Negative (Negative) Urine Urobilinogen <2.0 (<2.0) mg/dL Ur Leukocyte Esterase Moderate H (Negative) Urine RBC 1 (0-5) /hpf Urine WBC 16 H (0-5) /hpf Ur Squamous Epith Cells 2 (0-4) /hpf Urine Bacteria Many H (None) /hpf Urine Mucus Rare H (None) /hpf - EKG Data EKG Comments: EKG obtained at 1839 shows normal sinus rhythm with a nonspecific ST and T-wave abnormality, ventricular rate is 74, ND interval 146, QRS duration 70, QT 412, QTC 457. EKG was compared to a previous study on 09/01/2016, changes appear to be chronic. - Radiology Data Radiology results: report reviewed, image reviewed 2 views of the abdomen showed no sign of intestinal obstruction or pneumoperitoneum. Fecal pattern is normal. There are no pathologic calcifications over the kidneys. There is previous lumbar spine fusion surgery. Impression by Dr. Rangel shows nonacute abdomen with no change. CT of the abdomen and pelvis without contrast was performed, report was reviewed in its entirety. Impression by Dr. Rangel shows hepatic and renal cysts. Atherosclerotic vascular disease. Lumbar spondylotic changes. No sign of acute abdomen and pelvis. There has been some colonic resection compared to last exam. Minimal stranding in the left anterior pararenal space probably due to previous surgery. Ultrasound of the abdomen was obtained, report was reviewed in its entirety. Impression by Dr. Rangel shows no gallstones or dilated ducts. Small right renal cysts. Disposition Clinical Impression: Shingles, Abdominal pain, Acute renal insufficiency, Urinary tract infection Disposition: HOME SELF-CARE Condition: Good Instructions: Urinary Tract Infection in Women (ED), Shingles (ED), Abdominal Pain (ED) Additional Instructions: Follow-up with your primary care physician for recheck this as possible. Return here immediately for any new, worsening, or concerning symptoms. Prescriptions: Acyclovir [Zovirax] 800 mg PO Q4H #35 tab Levofloxacin [Levaquin] 500 mg PO DAILY #5 tab Referrals: Carlos Berg MD [Primary Care Provider] - 1-2 days Time of Disposition: 23:01
[2017-06-09 18:39] LABS: Anisocytosis Slight; Basophils % (A) 0 %; Eosinophils # (A) 0.1 k/uL (0-0.7); Eosinophils % (A) 1 %; HCT 45.6 % (34.0-46.0); HGB 14.9 gm/dL (11.4-16.0); Lymphocytes # (A) 2.1 k/uL (1.0-4.8); Lymphocytes % (A) 32 %; MCH 26.5 pg (25.0-35.0); MCHC 32.6 g/dL (31.0-37.0); MCV 81.4 fL (80.0-100.0); Mean Platelet Volume 9.1; Monocytes # (A) 0.5 k/uL (0-1.0); Monocytes % (A) 7 %; Neutrophils # (A) 3.6 k/uL (1.3-7.7); Neutrophils % (A) 56 %; Platelet Count 181 k/uL (150-450); RDW 16.2 % (11.5-15.5); WBC 6.4 k/uL (3.8-10.6)
--- NOTE | 2017-06-09 18:42 | XR ---
EXAMINATION TYPE: XR KUB DATE OF EXAM: 06/09/2017 COMPARISON: 09/20/2016 HISTORY: Right upper quadrant pain TECHNIQUE: 2 views FINDINGS: There is no sign of intestinal obstruction or pneumoperitoneum. Fecal pattern is normal. Th ere are no pathologic calcifications over the kidneys. There is previous lumbar spine fusion surgery. IMPRESSION: Nonacute abdomen. No change.
[2017-06-09 18:50] LABS: Calcium 9.7 mg/dL (8.4-10.2); Potassium 4.3 mmol/L (3.5-5.1); Total Bilirubin 0.5 mg/dL (0.2-1.3); Total Protein 7.1 g/dL (6.3-8.2)
--- NOTE | 2017-06-09 19:47 | CT ---
EXAMINATION TYPE: CT abdomen pelvis wo con DATE OF EXAM: 06/09/2017 COMPARISON: 11/20/2013 HISTORY: Abdominal pain with nausea CT DLP: 1120 mGycm Automated exposure control for dose reduction was used. TECHNIQUE: Helical acquisition of images was performed from the lung bases through the pelvis. FINDINGS: There is some mild atelectasis at the right lung base. There are scattered small hepatic cysts. Bile ducts are not dilated. Gallbladder is borderline dilated and measures 4.5 cm. Spleen appears normal. There is no pancreatic mass. There is no adrenal mass. Kidneys have normal size and contour. There is no hydronephrosis. There is a 2.5 cm cortical cyst on the posterior left kidney. There is no retroperitoneal adenopathy. Abdomina l aorta is atheromatous. There is no ascites. Bladder distends smoothly. There is no evidence of a pe lvic mass. I see no intestinal wall thickening. There are no dilated loops. There is no sign of appen dicitis. There are surgical clips at the sigmoid colon noted. There is minimal fat stranding anterior to the left kidney that is probably due to previous surgery. I do not see any adjacent inflammatory changes. There is multilevel spondylosis in the lumbar spine with laminectomy defect at multiple leve ls. There is posterior fusion surgery. There is osteopenia. IMPRESSION: HEPATIC AND RENAL CYSTS. ATHEROSCLEROTIC VASCULAR DISEASE. LUMBAR SPONDYLOTIC CHANGES. NO SIGN OF ACU TE ABDOMEN AND PELVIS. THERE HAS BEEN SOME COLONIC RESECTION COMPARED TO LAST EXAM. MINIMAL STRANDING IN THE LEFT ANTERIOR PARARENAL SPACE PROBABLY DUE TO PREVIOUS SURGERY.
[2017-06-09 20:03] LABS: Appearance,Urine Cloudy (Clear); Bacteria,Urine Many /hpf; Bilirubin,Urine Negative (Negative); Blood,Urine Negative (Negative); Color,Urine Yellow; Glucose,Urine (UA) Negative (Negative); Ketones,Urine Negative (Negative); Leukocyte Esterase,Urine Moderate (Negative); Mucus,Urine Rare /hpf; Nitrite,Urine Positive (Negative); Protein,Urine Negative (Negative); RBC,Urine 1 /hpf (0-5); Specific Gravity,Urine 1.017 (1.001-1.035); Squamous Epithelial Cell,Urine 2 /hpf (0-4); Urobilinogen,Urine <2.0 mg/dL (<2.0); WBC,Urine 16 /hpf (0-5)
--- NOTE | 2017-06-09 21:59 | US ---
EXAMINATION TYPE: US abdomen limited DATE OF EXAM: 06/09/2017 COMPARISON: NONE CLINICAL HISTORY: Pain. RUQ pain nausea EXAM MEASUREMENTS: Liver Length: 15.0 cm Gallbladder Wall: 0.28 cm CBD: 0.31 cm Right Kidney: 9.6 x 4.0 x 3.2 cm Exam limitations due to body habitus and overlying bowel gas Pancreas: Obscured by bowel gas Liver: Multiple anechoic areas seen largest measuring 1.2cm Gallbladder: 6.5 cm no stones seen some internal echoes vs artifact Evidence for sonographic Collado's sign: No CBD: wnl Right Kidney: Anechoic area seen upper pole measuring 1.0 x .7 x 1.0 cm IMPRESSION: No gallstones or dilated ducts. Small right renal cysts.
[2017-06-09] MEDS ORDERED: ACYCLOVIR 800 MG TAB PO STA (23:01)
[2017-06-09] MEDS ORDERED: LEVOFLOXACIN 500 MG TAB PO STA (23:34)
[2017-06-10 23:11] VITALS: BP 136/67; PULSE 75; RESP 16; TEMP 96.9
== END 2017-06-09 23:39 | disposition home or self-care (01) ==
LOC: EC 17:31
DX: N39.0 Urinary tract infection, site not specified (principal); B02.9 Zoster without complications; N28.9 Disorder of kidney and ureter, unspecified; R10.13 Epigastric pain; R10.11 Right upper quadrant pain; R10.32 Left lower quadrant pain; R11.0 Nausea; E11.9 Type 2 diabetes mellitus without complications; I10 Essential (primary) hypertension; F31.9 Bipolar disorder, unspecified; Z87.891 Personal history of nicotine dependence; Z79.82 Long term (current) use of aspirin; Z79.4 Long term (current) use of insulin; Z79.899 Other long term (current) drug therapy; Z88.5 Allergy status to narcotic agent; Z88.6 Allergy status to analgesic agent; Z91.013 Allergy to seafood; Z88.8 Allergy status to other drugs, medicaments and biological substances; Z88.1 Allergy status to other antibiotic agents; Z91.011 Allergy to milk products
CPT/HCPCS: 99285 ×2; 96374 ×2; 96375 ×2; 36415; 93005; 80053; 82150; 83605; 83690; 84484; 85025; 81001; 87086; 87077; 87186; 74018; 76705; 74176; J2405; J1170

== ENCOUNTER → 2017-09-21 | Outpatient (CLI) | payer MEDICARE ==
--- NOTE | 2017-09-21 14:25 | MR ---
MRI CERVICAL SPINE: CLINICAL HISTORY: Neck pain, cervical stenosis, and cervical radiculopathy all per order. Neck pain i nto arms for 3 months per patient. TECHNIQUE: Multiplanar, multisequence imaging of the cervical spine is performed without IV contrast. COMPARISON: MRI cervical spine February 19, 2010. FINDINGS: Sagittal images of the cervical spine show the craniocervical junction to remain within nor mal limits. The cervical and upper thoracic spinal cord is normal in course, caliber, and signal. V ertebral alignment is stable and straightened with slight grade 1 anterolisthesis of C7 on T1. There is artifact desired ossific fusion C4-C7 levels redemonstrated. Vertebral body heights and disc space heights above and below surgical levels are fairly satisfactory. Posterior disc herniation effaces a nterior thecal sac up to ventral surface of spinal cord at C3-C4 levels similar prior. There are mult ilevel posterior disc herniations in the upper thoracic spine effacing anterior thecal sac on sagitta l images that are more prominent versus prior. The bone marrow signal intensity is within normal limi ts. There is mild multilevel anterior spurring in the upper thoracic spine. Axial images show the C2-C3 level to remain within normal limits. Axial images at C3-C4 level show uncovertebral facet degenerative changes bilaterally causing moderat e left greater than right neural foraminal narrowing. There is central disc protrusion effacing anter ior thecal sac on axial image 42. There is no significant change from prior. Axial images at C4-C5 level on axial image 35 and C5-C6 level on axial image 29 show artifact from ve rtebral body usually hardware, bilateral neural foramina are patent. Axial images at regional C6-C7 disc space show right paracentral/foraminal spurring effacing anterola teral thecal sac near axial image 20 correlating with sagittal image 9. There is fairly moderate bila teral neural foraminal narrowing at this level redemonstrated. There is no significant change from pr ior. Axial images at C7-T1 level are felt to remain within normal limits. Note is made prior study mislabels C6-C7 level is C5-C6 level and incorrectly noted surgical change o nly into the C6 vertebra. IMPRESSION: Postsurgical changes C4-C7 level with stable alignment. Persistent degenerative change C 3-C4 level as detailed above felt stable causing most prominent spinal canal effacement or stenosis. Persistent right C6-C7 posterior lateral spur. No new suspicious findings noted.
== END | disposition home or self-care (01) ==
LOC: RADMRIMAIN 13:01
PROVIDERS: ATTEND Neurological Surgery
DX: M99.71 Connective tissue and disc stenosis of intervertebral foramina of cervical region (principal); M50.21 Other cervical disc displacement, high cervical region; M47.812 Spondylosis without myelopathy or radiculopathy, cervical region; Z98.890 Other specified postprocedural states
CPT/HCPCS: 72141

== ENCOUNTER → 2017-11-09 | Outpatient (CLI) | payer MEDICARE ==
[2017-11-09 15:15] LABS: Basophils % (A) 1 %; Eosinophils # (A) 0.1 k/uL (0-0.7); Eosinophils % (A) 2 %; HCT 44.6 % (34.0-46.0); HGB 15.4 gm/dL (11.4-16.0); Lymphocytes # (A) 1.3 k/uL (1.0-4.8); Lymphocytes % (A) 30 %; MCH 29.7 pg (25.0-35.0); MCHC 34.6 g/dL (31.0-37.0); MCV 85.9 fL (80.0-100.0); Mean Platelet Volume 7.7; Monocytes # (A) 0.3 k/uL (0-1.0); Monocytes % (A) 8 %; Neutrophils # (A) 2.6 k/uL (1.3-7.7); Neutrophils % (A) 58 %; Platelet Count 187 k/uL (150-450); RBC 5.19 m/uL (3.80-5.40); RDW 13.7 % (11.5-15.5); WBC 4.4 k/uL (3.8-10.6)
[2017-11-09 15:19] LABS: Appearance,Urine Clear (Clear); Bilirubin,Urine Negative (Negative); Blood,Urine Negative (Negative); Color,Urine Yellow; Glucose,Urine (UA) Negative (Negative); Ketones,Urine Negative (Negative); Leukocyte Esterase,Urine Trace (Negative); Mucus,Urine Rare /hpf; Nitrite,Urine Negative (Negative); PH, Urine 5.5 (5.0-8.0); Protein,Urine Negative (Negative); RBC,Urine 1 /hpf (0-5); Specific Gravity,Urine 1.018 (1.001-1.035); Squamous Epithelial Cell,Urine 1 /hpf (0-4); Urobilinogen,Urine <2.0 mg/dL (<2.0); WBC,Urine 3 /hpf (0-5)
[2017-11-09 15:20] LABS: Albumin 4.1 g/dL (3.5-5.0); Calcium 9.4 mg/dL (8.4-10.2); Potassium 4.2 mmol/L (3.5-5.1); Total Bilirubin 0.4 mg/dL (0.2-1.3); Total Protein 6.7 g/dL (6.3-8.2)
[2017-11-09 15:22] LABS: Partial Thromboplastin Time 23.9 sec (22.0-30.0)
== END | disposition home or self-care (01) ==
LOC: LABPAT 14:21
PROVIDERS: ATTEND Neurological Surgery
DX: Z01.812 Encounter for preprocedural laboratory examination (principal); N88.2 Stricture and stenosis of cervix uteri
CPT/HCPCS: 36415; 80053; 81001; 85025; 85610; 85730

== ENCOUNTER 2017-12-23 14:38 | Emergency (ER) | payer MEDICARE ==
[2017-12-23 15:09] VITALS: RESP 18; TEMP 97.8
--- NOTE | 2017-12-23 15:37 | ED ---
General Adult HPI - General Chief complaint: Recheck/Abnormal Lab/Rx Stated complaint: Sugar/338 Time Seen by Provider: 12/23/17 15:12 Source: patient, RN notes reviewed, old records reviewed Mode of arrival: ambulatory Limitations: no limitations - History of Present Illness Initial comments: 77-year-old female presents for evaluation of elevated blood sugar. Patient is a type II diabetic, she is insulin-dependent. She is on both long-acting and short-acting sliding scale. She states that over the past 1 week her blood sugars have been slightly elevated 250-270. Today her blood sugar was in the 300s after breakfast. Patient also reports a mild cough which is been ongoing for some time. She has history of paralyzed hemidiaphragm. Denies fever or chills. Denies chest pain. Denies lower extremity pain or swelling. She does complain of increased hunger and polydipsia. No dysuria, no polyuria. - Related Data Home Medications Medication Instructions Recorded Confirmed Aspirin 81 mg PO DAILY 11/20/13 12/23/17 Cholecalciferol [Vitamin D3] 1,000 unit PO DAILY 03/19/15 12/23/17 Temazepam [Restoril] 30 mg PO HS 09/20/16 12/23/17 Insulin Glargine,Hum.rec.anlog 15 units SQ HS 02/05/17 12/23/17 [Toujeo Solostar] Biotin 1000mg 1,000 mg PO DAILY 06/09/17 12/23/17 Ibuprofen [Motrin] 600 mg PO HS 06/09/17 12/23/17 Insulin Lispro [humaLOG Kwikpen] See Protocol SQ ACHS 06/09/17 12/23/17 Metoprolol Succinate [Toprol XL] 50 mg PO DAILY 06/09/17 12/23/17 Previous Rx's Medication Instructions Recorded Albuterol Nebulized [Ventolin 2.5 mg INHALATION RT-Q4H PRN #30 09/24/16 Nebulized] nebu Nitrofurantoin Monohyd/M-Cryst 100 mg PO Q12HR #14 cap 12/23/17 [Macrobid] Allergies Allergy/AdvReac Type Severity Reaction Status Date / Time meperidine HCl [From Demerol] Allergy Severe Anaphylaxis Verified 12/23/17 15:52 shellfish derived [Shellfish] Allergy Severe Anaphylaxis Verified 12/23/17 15:52 morphine Allergy Intermediate SEVERE Verified 12/23/17 15:52 ITCHING, HARD TO BREATH cefuroxime axetil Allergy Unknown Verified 12/23/17 15:52 [From Ceftin] codeine Allergy Abdominal Verified 12/23/17 15:52 Pain, DYSPNEA erythromycin base Allergy Nausea Verified 12/23/17 15:52 [From E-Mycin] fentanyl Allergy FELT Verified 12/23/17 15:52 DRUGGED FOR LONG TIME hydrocodone bitartrate Allergy Abdominal Verified 12/23/17 15:52 [From Lortab] Pain, DYSPNEA lisinopril Allergy Anxiety, Verified 12/23/17 15:52 CAN'T FUNCTION lorazepam [From Ativan] Allergy DILUSIONS Verified 12/23/17 15:52 milk Allergy Diarrhea Verified 12/23/17 15:52 oxycodone HCl [From Percocet] Allergy DYSPNEA, Verified 12/23/17 15:52 ITCHING Review of Systems ROS Statement: Those systems with pertinent positive or pertinent negative responses have been documented in the HPI. ROS Other: All systems not noted in ROS Statement are negative. Past Medical History Past Medical History: Diabetes Mellitus, Hypertension, Musculoskeletal Disorder , Pneumonia, Skin Disorder Additional Past Medical History / Comment(s): MINOR Hiatal Hernia. HX Shingles. CHRONIC BACK PAIN. DIVERTICULITIS W/ PERFORATION 08/23/16, HAS COLOSTOMY; POST -OP PNEUMONIA, PARLYZED DIAPHRAGM. SKIN DRY, ITCHING. CURRENT BRONCHITS, FINISHING 2ND AB RX, SAW DR WOOTEN FOR CLEARANCE. History of Any Multi-Drug Resistant Organisms: None Reported Past Surgical History: Back Surgery, Bowel Resection, Heart Catheterization Additional Past Surgical History / Comment(s): Mult Back Surgeries-Back, Neck Fusions. Epidural Spinal INJ. Levi Cataracts. LAPAROSCOPY, MORGAN'S PROC, COLOSTOMY 08/23/16. REPAIR PARALYZED DIAPHRAGM 11/14/16. reversal of colostomy in february,. neck surgery 11-11-17 done in [place] Past Anesthesia/Blood Transfusion Reactions: Previous Problems w/ Anesthesia Additional Past Anesthesia/Blood Transfusion Reaction / Comment(s): Stopped breathing POST-OP R/T ALLERGY TO PAIN RX, "over medicated" - had to get narcan. Past Psychological History: Anxiety Smoking Status: Former smoker Past Alcohol Use History: None Reported Past Drug Use History: None Reported - Past Family History Brother(s) Family Medical History: Cancer General Exam Limitations: no limitations General appearance: alert, in no apparent distress Head exam: Present: atraumatic, normocephalic Eye exam: Present: normal appearance, PERRL, EOMI ENT exam: Present: normal exam Neck exam: Present: normal inspection. Absent: tenderness, meningismus Respiratory exam: Present: normal lung sounds bilaterally. Absent: respiratory distress, wheezes Cardiovascular Exam: Present: regular rate, normal rhythm GI/Abdominal exam: Present: soft. Absent: distended, tenderness Extremities exam: Present: normal inspection, normal capillary refill. Absent: pedal edema, calf tenderness Neurological exam: Present: alert, oriented X3, CN II-XII intact. Absent: motor sensory deficit Psychiatric exam: Present: normal affect, normal mood Skin exam: Present: warm, dry, intact. Absent: cyanosis, diaphoretic Course Vital Signs 12/23/17 15:05 Temperature 97.8 F Pulse Rate 95 Respiratory 18 Rate Blood Pressure 134/78 O2 Sat by Pulse 95 Oximetry Medical Decision Making - Medical Decision Making 77-year-old female is chief complaint of hyperglycemia. Patient also reports some dysuria. And mild cough. Chest x-ray obtained, is negative for any acute cardiopulmonary disease, no edema, no pneumonia. CBC is unremarkable, acetone negative, CMP reveals glucose of 232 with no other abnormalities. Urinalysis shows 4+ glucose, positive nitrate 10 WBCs and few bacteria. Culture is pending. Patient will be started on antibiotics for UTI. She will continue to monitor her sugars at home. She will follow up with primary care physician. - Lab Data Result diagrams: 12/23/17 15:39 12/23/17 15:39 Lab Results 12/23/17 12/23/17 12/23/17 Range/Units 15:39 15:39 15:39 WBC 4.5 (3.8-10.6) k/uL RBC 4.88 (3.80-5.40) m/uL Hgb 13.7 (11.4-16.0) gm/dL Hct 41.3 (34.0-46.0) % MCV 84.6 (80.0-100.0) fL MCH 28.1 (25.0-35.0) pg MCHC 33.2 (31.0-37.0) g/dL RDW 13.6 (11.5-15.5) % Plt Count 192 (150-450) k/uL Neutrophils % 55 % Lymphocytes % 33 % Monocytes % 7 % Eosinophils % 2 % Basophils % 0 % Neutrophils # 2.5 (1.3-7.7) k/uL Lymphocytes # 1.5 (1.0-4.8) k/uL Monocytes # 0.3 (0-1.0) k/uL Eosinophils # 0.1 (0-0.7) k/uL Basophils # 0.0 (0-0.2) k/uL PT (9.0-12.0) sec INR (<1.2) APTT (22.0-30.0) sec Sodium 137 (137-145) mmol/L Potassium 4.9 (3.5-5.1) mmol/L Chloride 107 (98-107) mmol/L Carbon Dioxide 22 (22-30) mmol/L Anion Gap 8 mmol/L BUN 18 H (7-17) mg/dL Creatinine 0.70 (0.52-1.04) mg/dL Est GFR (CKD-EPI)AfAm >90 (>60 ml/min/1.73 sqM) Est GFR (CKD-EPI)NonAf 84 (>60 ml/min/1.73 sqM) Glucose 232 H (74-99) mg/dL Calcium 9.4 (8.4-10.2) mg/dL Total Bilirubin 0.6 (0.2-1.3) mg/dL AST 38 H (14-36) U/L ALT 30 (9-52) U/L Alkaline Phosphatase 76 (38-126) U/L Total Protein 6.7 (6.3-8.2) g/dL Albumin 3.9 (3.5-5.0) g/dL Urine Color Yellow Urine Appearance Clear (Clear) Urine pH 5.0 (5.0-8.0) Ur Specific [place] 1.013 (1.001-1.035) Urine Protein Negative (Negative) Urine Glucose (UA) 4+ H (Negative) Urine Ketones Negative (Negative) Urine Blood Trace H (Negative) Urine Nitrite Positive H (Negative) Urine Bilirubin Negative (Negative) Urine Urobilinogen <2.0 (<2.0) mg/dL Ur Leukocyte Esterase Moderate H (Negative) Urine RBC <1 (0-5) /hpf Urine WBC 10 H (0-5) /hpf Ur Squamous Epith Cells 3 (0-4) /hpf Urine Bacteria Few H (None) /hpf Urine Mucus Rare H (None) /hpf Acetone, Qual Negative (Negative) 12/23/17 Range/Units 15:46 WBC (3.8-10.6) k/uL RBC (3.80-5.40) m/uL Hgb (11.4-16.0) gm/dL Hct (34.0-46.0) % MCV (80.0-100.0) fL MCH (25.0-35.0) pg MCHC (31.0-37.0) g/dL RDW (11.5-15.5) % Plt Count (150-450) k/uL Neutrophils % % Lymphocytes % % Monocytes % % Eosinophils % % Basophils % % Neutrophils # (1.3-7.7) k/uL Lymphocytes # (1.0-4.8) k/uL Monocytes # (0-1.0) k/uL Eosinophils # (0-0.7) k/uL Basophils # (0-0.2) k/uL PT 9.8 (9.0-12.0) sec INR 1.0 (<1.2) APTT 22.5 (22.0-30.0) sec Sodium (137-145) mmol/L Potassium (3.5-5.1) mmol/L Chloride (98-107) mmol/L Carbon Dioxide (22-30) mmol/L Anion Gap mmol/L BUN (7-17) mg/dL Creatinine (0.52-1.04) mg/dL Est GFR (CKD-EPI)AfAm (>60 ml/min/1.73 sqM) Est GFR (CKD-EPI)NonAf (>60 ml/min/1.73 sqM) Glucose (74-99) mg/dL Calcium (8.4-10.2) mg/dL Total Bilirubin (0.2-1.3) mg/dL AST (14-36) U/L ALT (9-52) U/L Alkaline Phosphatase (38-126) U/L Total Protein (6.3-8.2) g/dL Albumin (3.5-5.0) g/dL Urine Color Urine Appearance (Clear) Urine pH (5.0-8.0) Ur Specific [place] (1.001-1.035) Urine Protein (Negative) Urine Glucose (UA) (Negative) Urine Ketones (Negative) Urine Blood (Negative) Urine Nitrite (Negative) Urine Bilirubin (Negative) Urine Urobilinogen (<2.0) mg/dL Ur Leukocyte Esterase (Negative) Urine RBC (0-5) /hpf Urine WBC (0-5) /hpf Ur Squamous Epith Cells (0-4) /hpf Urine Bacteria (None) /hpf Urine Mucus (None) /hpf Acetone, Qual (Negative) Disposition Clinical Impression: UTI (urinary tract infection), Hyperglycemia Disposition: HOME SELF-CARE Condition: Good Instructions: Urinary Tract Infection in Women (ED), Diabetic Hyperglycemia (ED ) Prescriptions: Nitrofurantoin Monohyd/M-Cryst [Macrobid] 100 mg PO Q12HR #14 cap Is patient prescribed a controlled substance at d/c from ED?: No Referrals: Umesh Boston MD [Primary Care Provider] - 1-2 days Time of Disposition: 16:37
--- NOTE | 2017-12-23 15:47 | XR ---
EXAMINATION TYPE: XR chest 2V DATE OF EXAM: 12/23/2017 COMPARISON: 02/15/2017 HISTORY: Shortness of breath TECHNIQUE: Frontal and lateral views of the chest are obtained. FINDINGS: Scattered senescent parenchymal changes noted. Hyperinflation compatible with COPD. No evidence for infiltrate. Right basilar parenchymal scarring or linear atelectasis. Elevation right hemidiaphragm. Heart size is stable. Mediastinal structures are stable and grossly unremarkable. No evidence for hilar prominence. Degenerative changes dorsal spine. IMPRESSION: 1. No evidence for acute pulmonary disease.
[2017-12-23 16:02] LABS: Basophils % (A) 0 %; Eosinophils # (A) 0.1 k/uL (0-0.7); Eosinophils % (A) 2 %; HCT 41.3 % (34.0-46.0); HGB 13.7 gm/dL (11.4-16.0); Lymphocytes # (A) 1.5 k/uL (1.0-4.8); Lymphocytes % (A) 33 %; MCH 28.1 pg (25.0-35.0); MCHC 33.2 g/dL (31.0-37.0); MCV 84.6 fL (80.0-100.0); Mean Platelet Volume 7.7; Monocytes # (A) 0.3 k/uL (0-1.0); Monocytes % (A) 7 %; Neutrophils # (A) 2.5 k/uL (1.3-7.7); Neutrophils % (A) 55 %; Platelet Count 192 k/uL (150-450); RBC 4.88 m/uL (3.80-5.40); RDW 13.6 % (11.5-15.5); WBC 4.5 k/uL (3.8-10.6)
[2017-12-23 16:06] LABS: Appearance,Urine Clear (Clear); Bacteria,Urine Few /hpf; Bilirubin,Urine Negative (Negative); Blood,Urine Trace (Negative); Color,Urine Yellow; Glucose,Urine (UA) 4+ (Negative); Ketones,Urine Negative (Negative); Leukocyte Esterase,Urine Moderate (Negative); Mucus,Urine Rare /hpf; Nitrite,Urine Positive (Negative); Protein,Urine Negative (Negative); RBC,Urine <1 /hpf (0-5); Specific Gravity,Urine 1.013 (1.001-1.035); Squamous Epithelial Cell,Urine 3 /hpf (0-4); Urobilinogen,Urine <2.0 mg/dL (<2.0); WBC,Urine 10 /hpf (0-5)
[2017-12-23 16:14] LABS: ALT 30 U/L (9-52); AST 38 U/L (14-36); Albumin 3.9 g/dL (3.5-5.0); Alkaline Phosphatase 76 U/L (38-126); Anion Gap 8 mmol/L; Blood Urea Nitrogen 18 mg/dL (7-17); Calcium 9.4 mg/dL (8.4-10.2); Carbon Dioxide 22 mmol/L (22-30); Chloride 107 mmol/L (98-107); Glucose 232 mg/dL (74-99); Potassium 4.9 mmol/L (3.5-5.1); Sodium 137 mmol/L (137-145); Total Bilirubin 0.6 mg/dL (0.2-1.3); Total Protein 6.7 g/dL (6.3-8.2)
[2017-12-23 16:14] LABS: Partial Thromboplastin Time 22.5 sec (22.0-30.0); Prothrombin Time 9.8 sec (9.0-12.0)
[2017-12-23 16:55] VITALS: BP 137/67; PULSE 80
== END 2017-12-23 16:54 | disposition home or self-care (01) ==
LOC: EC 14:38
DX: E11.65 Type 2 diabetes mellitus with hyperglycemia (principal); N39.0 Urinary tract infection, site not specified; I10 Essential (primary) hypertension; F41.9 Anxiety disorder, unspecified; Z87.891 Personal history of nicotine dependence; Z79.4 Long term (current) use of insulin; Z79.82 Long term (current) use of aspirin; Z79.899 Other long term (current) drug therapy; Z88.1 Allergy status to other antibiotic agents; Z91.013 Allergy to seafood; Z88.5 Allergy status to narcotic agent; Z91.011 Allergy to milk products; Z88.8 Allergy status to other drugs, medicaments and biological substances; Z95.818 Presence of other cardiac implants and grafts; Z93.3 Colostomy status
CPT/HCPCS: 36415; 71046; 80053; 81001; 82009; 83880; 85025; 85610; 85730; 87086; 99285

== ENCOUNTER → 2017-12-29 | Outpatient (CLI) | payer MEDICARE ==
--- NOTE | 2017-12-29 14:32 | XR ---
EXAMINATION TYPE: XR cervical spine limited DATE OF EXAM: 12/29/2017 CLINICAL HISTORY: M48.02 Cervical stenosis of spinal canal TECHNIQUE: 3 views of the cervical spine are submitted. COMPARISON: None. FINDINGS: Postoperative changes of fusion with bone graft noted extending from C4 through C6- C7. Ali gnment is stable relative to the prior study. Interval placement of pedicular screws extending from C 3 through C7 IMPRESSION: Stable postoperative alignment with postoperative changes as noted.
== END | disposition home or self-care (01) ==
LOC: RADXRMAIN 13:48
PROVIDERS: ATTEND Neurological Surgery
DX: M54.12 Radiculopathy, cervical region (principal); Z98.890 Other specified postprocedural states
CPT/HCPCS: 72040

== ENCOUNTER 2018-01-08 19:08 | Emergency (ER) | payer MEDICARE ==
[2018-01-08 19:43] VITALS: RESP 18
[2018-01-08] MEDS ORDERED: SODIUM CHLORIDE 0.9% 1,000 ML IV STA (21:03)
[2018-01-08 21:15] LABS: Basophils % (A) 0 %; Eosinophils # (A) 0.1 k/uL (0-0.7); Eosinophils % (A) 1 %; HCT 42.1 % (34.0-46.0); HGB 13.9 gm/dL (11.4-16.0); Lymphocytes # (A) 1.3 k/uL (1.0-4.8); Lymphocytes % (A) 25 %; MCH 27.8 pg (25.0-35.0); MCV 84.3 fL (80.0-100.0); Mean Platelet Volume 7.9; Monocytes # (A) 0.4 k/uL (0-1.0); Monocytes % (A) 8 %; Neutrophils # (A) 3.2 k/uL (1.3-7.7); Neutrophils % (A) 62 %; Platelet Count 179 k/uL (150-450); RDW 13.6 % (11.5-15.5); WBC 5.1 k/uL (3.8-10.6)
[2018-01-08 21:17] LABS: Appearance,Urine Cloudy (Clear); Bacteria,Urine Moderate /hpf; Bilirubin,Urine Negative (Negative); Blood,Urine Moderate (Negative); Color,Urine Yellow; Glucose,Urine (UA) Negative (Negative); Ketones,Urine Negative (Negative); Leukocyte Esterase,Urine Large (Negative); Mucus,Urine Rare /hpf; Nitrite,Urine Positive (Negative); PH, Urine 5.5 (5.0-8.0); Protein,Urine 1+ (Negative); RBC,Urine 59 /hpf (0-5); Specific Gravity,Urine 1.015 (1.001-1.035); Squamous Epithelial Cell,Urine <1 /hpf (0-4); Urobilinogen,Urine <2.0 mg/dL (<2.0); WBC,Urine >182 /hpf (0-5)
[2018-01-08 21:26] LABS: Albumin 4.1 g/dL (3.5-5.0); Calcium 9.4 mg/dL (8.4-10.2); Potassium 4.2 mmol/L (3.5-5.1); Total Bilirubin 0.3 mg/dL (0.2-1.3); Total Protein 6.8 g/dL (6.3-8.2)
--- NOTE | 2018-01-08 22:16 | CT ---
EXAMINATION TYPE: CT abdomen pelvis w con DATE OF EXAM: 01/08/2018 COMPARISON: 06/09/2017 HISTORY: Left side abdominal pain and constipation CT DLP: 979.5 mGycm Automated exposure control for dose reduction was used. TECHNIQUE: Helical acquisition of images was performed from the lung bases through the pelvis. CONTRAST: Performed without Oral Contrast and with IV Contrast, patient injected with 100 mL of Isovue 300. FINDINGS: There is some linear density at the right lung base. There is minimal pleural thickening at the lung bases. There are small hiatal hernia. There are small hepatic cysts that measure up to 1.5 cm. Bile ducts are not dilated. I see no gallbla dder wall thickening. Spleen appears normal. There is no evidence of pancreatic mass. There is no adrenal mass. Kidneys show satisfactory contrast opacification. There is no hydronephrosi s. There is 3 cm cortical cyst posterior left kidney. There is 1.5 cm cortical cyst medial left kidne y. There is no retroperitoneal adenopathy. Abdominal aorta is atheromatous. There is small ventral he rnia that contains fat. I see no intestinal wall thickening. There are no dilated loops. There is no evidence of a bowel obstruction. There are surgical clips from surgery on the sigmoid colon. I see no evidence of appendicitis. Appendix is not seen. There is posterior fusion surgery in the lumbar spin e with some straightening. There is multilevel laminectomy. There is no compression fracture. IMPRESSION: Hepatic and renal cysts. No dilated ducts. There is some chronic scarring and subsegmental atelectasi s at the right lung base. This appears unchanged. There is a new mid abdominal ventral hernia on the left of mid abdomen compared to old exam. No sign of acute abdomen and pelvis. There is some minimal chronic density at the left anterior pararenal space that is stable compared to old exam and consiste nt with scarring. IMPRESSION:
--- NOTE | 2018-01-08 22:50 | ED ---
General Adult HPI - General Chief complaint: Abdominal Pain Stated complaint: Abd Pain Time Seen by Provider: 01/08/18 20:20 Source: patient, RN notes reviewed Mode of arrival: ambulatory Limitations: no limitations - History of Present Illness Initial comments: 77-year-old female presents to the emergency department for a chief complaint of abdominal pain. Patient has been intermittent times one month. It has come and gone. Patient states that the pain worsened within the past 2 days it has now somewhat constant. Patient does have a history of abdominal surgery in 2017 due to a bowel perforation performed by Dr Garcia. She had a colostomy reversal late last year. Patient states that because of her surgery she is aware that she can have a problem with hernias. Patient states she has a growing hernia on her left lower abdomen. Patient states she did attempt to contact her surgeon today who was not available due to her office being closed. Patient states she has been eating and drinking normally and had a bowel movement today which was normal. Patient states the pain is mostly in the left lower abdomen around the hernia site. - Related Data Home Medications Medication Instructions Recorded Confirmed Aspirin 81 mg PO DAILY 11/20/13 12/23/17 Cholecalciferol [Vitamin D3] 1,000 unit PO DAILY 03/19/15 12/23/17 Temazepam [Restoril] 30 mg PO HS 09/20/16 12/23/17 Insulin Glargine,Hum.rec.anlog 15 units SQ HS 02/05/17 12/23/17 [Toujeo Solostar] Biotin 1000mg 1,000 mg PO DAILY 06/09/17 12/23/17 Ibuprofen [Motrin] 600 mg PO HS 06/09/17 12/23/17 Insulin Lispro [humaLOG Kwikpen] See Protocol SQ ACHS 06/09/17 12/23/17 Metoprolol Succinate [Toprol XL] 50 mg PO DAILY 06/09/17 12/23/17 Previous Rx's Medication Instructions Recorded Albuterol Nebulized [Ventolin 2.5 mg INHALATION RT-Q4H PRN #30 09/24/16 Nebulized] nebu Nitrofurantoin Monohyd/M-Cryst 100 mg PO Q12HR #14 cap 12/23/17 [Macrobid] Sulfamethox-Tmp 800-160Mg [Bactrim 1 tab PO Q12HR #20 tab 01/08/18 DS 800-160 mg] Allergies Allergy/AdvReac Type Severity Reaction Status Date / Time meperidine HCl [From Demerol] Allergy Severe Anaphylaxis Verified 01/08/18 19:43 shellfish derived [Shellfish] Allergy Severe Anaphylaxis Verified 01/08/18 19:43 morphine Allergy Intermediate SEVERE Verified 01/08/18 19:43 ITCHING, HARD TO BREATH cefuroxime axetil Allergy Unknown Verified 01/08/18 19:43 [From Ceftin] codeine Allergy Abdominal Verified 01/08/18 19:43 Pain, DYSPNEA erythromycin base Allergy Nausea Verified 01/08/18 19:43 [From E-Mycin] fentanyl Allergy FELT Verified 01/08/18 19:43 DRUGGED FOR LONG TIME hydrocodone bitartrate Allergy Abdominal Verified 01/08/18 19:43 [From Lortab] Pain, DYSPNEA lisinopril Allergy Anxiety, Verified 01/08/18 19:43 CAN'T FUNCTION lorazepam [From Ativan] Allergy DILUSIONS Verified 01/08/18 19:43 milk Allergy Diarrhea Verified 01/08/18 19:43 oxycodone HCl [From Percocet] Allergy DYSPNEA, Verified 01/08/18 19:43 ITCHING Review of Systems ROS Statement: Those systems with pertinent positive or pertinent negative responses have been documented in the HPI. ROS Other: All systems not noted in ROS Statement are negative. Past Medical History Past Medical History: Diabetes Mellitus, Hypertension, Musculoskeletal Disorder , Pneumonia, Skin Disorder Additional Past Medical History / Comment(s): MINOR Hiatal Hernia. HX Shingles. CHRONIC BACK PAIN. DIVERTICULITIS W/ PERFORATION 08/23/16, HAS COLOSTOMY; POST -OP PNEUMONIA, PARLYZED DIAPHRAGM. SKIN DRY, ITCHING. History of Any Multi-Drug Resistant Organisms: None Reported Past Surgical History: Back Surgery, Bowel Resection, Heart Catheterization Additional Past Surgical History / Comment(s): Mult Back Surgeries-Back, Neck Fusions. Epidural Spinal INJ. Levi Cataracts. LAPAROSCOPY, MORGAN'S PROC, COLOSTOMY 08/23/16. REPAIR PARALYZED DIAPHRAGM 11/14/16. reversal of colostomy in february,. neck surgery 11-11-17 done in [place] Past Anesthesia/Blood Transfusion Reactions: Previous Problems w/ Anesthesia Additional Past Anesthesia/Blood Transfusion Reaction / Comment(s): Stopped breathing POST-OP R/T ALLERGY TO PAIN RX, "over medicated" - had to get narcan. Past Psychological History: Anxiety Smoking Status: Former smoker Past Alcohol Use History: None Reported Past Drug Use History: None Reported - Past Family History Brother(s) Family Medical History: Cancer General Exam Limitations: no limitations General appearance: alert, in no apparent distress Head exam: Present: atraumatic, normocephalic, normal inspection Eye exam: Present: normal appearance. Absent: scleral icterus, conjunctival injection ENT exam: Present: normal exam, mucous membranes moist Neck exam: Present: normal inspection, full ROM. Absent: tenderness, meningismus, lymphadenopathy Respiratory exam: Present: normal lung sounds bilaterally. Absent: respiratory distress, wheezes, rales, rhonchi, stridor Cardiovascular Exam: Present: regular rate, normal rhythm, normal heart sounds. Absent: systolic murmur, diastolic murmur, rubs, gallop, clicks GI/Abdominal exam: Present: soft, normal bowel sounds, hernia (hernia noted left side abdomen, non-tender). Absent: distended, tenderness, guarding, rebound, rigid Course Vital Signs 01/08/18 01/08/18 19:41 23:14 Temperature 98.3 F 98.7 F Pulse Rate 91 70 Respiratory 18 18 Rate Blood Pressure 138/74 154/72 O2 Sat by Pulse 97 98 Oximetry Medical Decision Making - Medical Decision Making 77-year-old female with abdominal pain. History of GI surgery 1.5 years ago. Patient has pain in the left upper abdomen where she states she has a growing hernia. On exam no tenderness noted in the abdomen. CBC and CMP unremarkable CT shows hepatic and renal cysts. No dilated ducts. There is some chronic scarring and subsegmental atelectasis at the right lung base. This appears unchanged. There is new mild ventral hernia on the left of the mid abdomen. No sign of acute abdomen or pelvis. There is some minimal chronic density at the left anterior pararenal space that is comparable to old exam and consistent with scarring. Patient also has a urinary tract infection. No fevers or chills. Patient will be treated with Bactrim for this. Patient states she would like to follow-up with Dr. Levy for the hernia. She states she is ready to go home and is feeling better. Patient will return to the emergency Department if she has any worsening symptoms or fevers. - Lab Data Result diagrams: 01/08/18 21:01 01/08/18 21:01 Lab Results 01/08/18 01/08/18 01/08/18 Range/Units 21:01 21: 21:01 WBC 5.1 (3.8-10.6) k/uL RBC 5.00 (3.80-5.40) m/uL Hgb 13.9 (11.4-16.0) gm/dL Hct 42.1 (34.0-46.0) % MCV 84.3 (80.0-100.0) fL MCH 27.8 (25.0-35.0) pg MCHC 33.0 (31.0-37.0) g/dL RDW 13.6 (11.5-15.5) % Plt Count 179 (150-450) k/uL Neutrophils % 62 % Lymphocytes % 25 % Monocytes % 8 % Eosinophils % 1 % Basophils % 0 % Neutrophils # 3.2 (1.3-7.7) k/uL Lymphocytes # 1.3 (1.0-4.8) k/uL Monocytes # 0.4 (0-1.0) k/uL Eosinophils # 0.1 (0-0.7) k/uL Basophils # 0.0 (0-0.2) k/uL Sodium 139 (137-145) mmol/L Potassium 4.2 (3.5-5.1) mmol/L Chloride 105 (98-107) mmol/L Carbon Dioxide 23 (22-30) mmol/L Anion Gap 11 mmol/L BUN 22 H (7-17) mg/dL Creatinine 0.80 (0.52-1.04) mg/dL Est GFR (CKD-EPI)AfAm 82 (>60 ml/min/1.73 sqM) Est GFR (CKD-EPI)NonAf 72 (>60 ml/min/1.73 sqM) Glucose 180 H (74-99) mg/dL Calcium 9.4 (8.4-10.2) mg/dL Total Bilirubin 0.3 (0.2-1.3) mg/dL AST 21 (14-36) U/L ALT 30 (9-52) U/L Alkaline Phosphatase 97 (38-126) U/L Total Protein 6.8 (6.3-8.2) g/dL Albumin 4.1 (3.5-5.0) g/dL Amylase 59 (30-110) U/L Lipase 115 (23-300) U/L Urine Color Yellow Urine Appearance Cloudy H (Clear) Urine pH 5.5 (5.0-8.0) Ur Specific [place] 1.015 (1.001-1.035) Urine Protein 1+ H (Negative) Urine Glucose (UA) Negative (Negative) Urine Ketones Negative (Negative) Urine Blood Moderate H (Negative) Urine Nitrite Positive H (Negative) Urine Bilirubin Negative (Negative) Urine Urobilinogen <2.0 (<2.0) mg/dL Ur Leukocyte Esterase Large H (Negative) Urine RBC 59 H (0-5) /hpf Urine WBC >182 H (0-5) /hpf Ur Squamous Epith Cells <1 (0-4) /hpf Urine Bacteria Moderate H (None) /hpf Urine Mucus Rare H (None) /hpf Disposition Clinical Impression: Hernia Disposition: HOME SELF-CARE Condition: Good Instructions: Ventral Hernia (ED) Additional Instructions: Please take Tylenol for pain. Please follow-up with Dr. Siu in one to 2 days. Please take Bactrim for urinary tract infection. Return to the emergency department if you have any worsening symptoms. Prescriptions: Sulfamethox-Tmp 800-160Mg [Bactrim DS 800-160 mg] 1 tab PO Q12HR #20 tab Is patient prescribed a controlled substance at d/c from ED?: No Referrals: Umesh Boston MD [Primary Care Provider] - 1-2 days Time of Disposition: 23:13
[2018-01-08 23:17] VITALS: BP 154/72; PULSE 70; TEMP 98.7
== END 2018-01-08 23:29 | disposition home or self-care (01) ==
LOC: EC 19:08
DX: K43.9 Ventral hernia without obstruction or gangrene (principal); N39.0 Urinary tract infection, site not specified; N28.1 Cyst of kidney, acquired; K76.89 Other specified diseases of liver; J98.11 Atelectasis; E11.9 Type 2 diabetes mellitus without complications; I10 Essential (primary) hypertension; Z87.19 Personal history of other diseases of the digestive system; Z90.49 Acquired absence of other specified parts of digestive tract; Z95.818 Presence of other cardiac implants and grafts; Z98.890 Other specified postprocedural states; Z87.891 Personal history of nicotine dependence; Z93.3 Colostomy status; Z79.82 Long term (current) use of aspirin; Z79.4 Long term (current) use of insulin; Z79.1 Long term (current) use of non-steroidal anti-inflammatories (NSAID); Z79.899 Other long term (current) drug therapy; Z88.5 Allergy status to narcotic agent; Z91.013 Allergy to seafood; Z88.1 Allergy status to other antibiotic agents; Z88.8 Allergy status to other drugs, medicaments and biological substances; Z91.011 Allergy to milk products
CPT/HCPCS: 36415; 93005; 80053; 82150; 83690; 85025; 81001; 87086; 74177; 99285; 96360; Q9967; 87077; 87186

== ENCOUNTER → 2018-07-13 | Outpatient (CLI) | payer MEDICARE ==
--- NOTE | 2018-07-13 15:18 | XR ---
Cervical spine Limited HISTORY: Status post cervical spine fusion, neck pain 3 views of the cervical spine correlated to prior exam 12/29/2017 Posterior cervical fusion changes are noted C3-T1 as on prior, multilevel laminectomies with bone gra ft and 4 through C7. Anterolisthesis grade 1 C7-T1 is stable. Bone mineralization is somewhat reduced . Prevertebral lucency may be due to gas within the esophagus. IMPRESSION: Neurosurgical follow-up.
== END | disposition home or self-care (01) ==
LOC: RADXRMAIN 14:05
PROVIDERS: ATTEND Neurological Surgery
DX: M54.2 Cervicalgia (principal); Z98.1 Arthrodesis status
CPT/HCPCS: 72040

== ENCOUNTER → 2018-08-17 | Outpatient (CLI) | payer MEDICARE ==
--- NOTE | 2018-08-18 09:44 | BD ---
EXAMINATION TYPE: Axial Bone Density DATE OF EXAM: 08/17/2018 COMPARISON: NONE CLINICAL HISTORY: M [age]. Disorder of the bone. Osteoporosis screening. Postmenopausal female. Height: 59.7 IN Weight: 161 LBS FRAX RISK QUESTIONS: Secondary Osteoporosis: 3. Menopause before 45: AGE 58 RISK FACTORS HISTORY OF: Surgery to Spine: L SPINE When: 2003 L5; 2008 AND 2012 L3 AND L4 FUSION Active: YES Diet low in dairy products/other sources of calcium: YES Postmenopausal woman: AGE 58 Take estrogen and/or progesterone medications: NOT NOW How long: TOOK 13 YEARS MEDICATIONS: Additional Medications: VIT D, 81 MG ASPIRIN, VIT E, BIOTIN, METOPROLOL EXAM MEASUREMENTS: Bone mineral densitometry was performed using the Echo360 System. MANY L-SPINE SURGERIES Bone mineral density about the R hip (g/cm2): 0.665 Bone mineral density about the L hip (g/cm2): 0.716 T Score values are as follows: -----R Neck: -2.7 -----L Neck: -2.3 -----R Total: -2.3 -----L Total: -1.8 Bone mineral density has: Decreased -7.8% since study of: 11/09/2013 Bone mineral density about the L Wrist (g/cm2): 0.453 T Score values are as follows: -----Dist. R+U: -4.0 -----Prox. R+U: -3.5 -----Radius total: -3.7 Bone mineral density BASELINE IMPRESSION: Osteoporosis (T Score less than -2.5). There is increased fracture risk and therapy is usually indicated based on age. Re-Screen 1-2 years. NOTE: T-SCORE=SD OF THE YOUNG ADULT MEAN.
--- NOTE | 2018-08-18 11:54 | MM ---
Reason for exam: screening (asymptomatic). Last mammogram was performed 1 year and 4 months ago. History: Patient is postmenopausal. Family history of breast cancer in maternal aunt and breast cancer in maternal cousin. Benign cyst aspiration of the right breast. Benign excisional biopsy of the left breast. Took estrogen for 13 years beginning at age 58. Took progesterone for 13 years beginning at age 58. Physical Findings: A clinical breast exam by your physician is recommended on an annual basis and results should be correlated with mammographic findings. MG 3D Screening Mammo W/Cad Bilateral CC and MLO view(s) were taken. Prior study comparison: April 28, 2017, bilateral MG 3d screening mammo w/cad. February 27, 2016, bilateral MG 3d screening mammo w/cad. There are scattered fibroglandular densities. Stable benign appearing bilateral calcifications. No suspicious abnormality. No significant changes when compared with prior studies. ASSESSMENT: Benign, BI-RAD 2 RECOMMENDATION: Routine screening mammogram of both breasts in 1 year.
== END ==
LOC: RADMAMWWP 14:32
PROVIDERS: ATTEND Internal Medicine
DX: Z12.31 Encounter for screening mammogram for malignant neoplasm of breast (principal); M81.0 Age-related osteoporosis without current pathological fracture
CPT/HCPCS: 77063; 77067; 77080

== ENCOUNTER → 2018-09-30 | Outpatient (CLI) | payer MEDICARE ==
--- NOTE | 2018-09-30 16:29 | CT ---
EXAMINATION TYPE: CT angio chest DATE OF EXAM: 09/30/2018 COMPARISON: 09/03/2016 HISTORY: Shortness of breath. CT DLP: 282.8 mGycm. Automated Exposure Control for Dose Reduction was Utilized. CONTRAST: CTA scan of the thorax is performed with IV Contrast, patient injected with 54ml mL of Isovue 370, pu lmonary embolism protocol. MIP Images are created on CT scanner and reviewed. FINDINGS: LUNGS: There is chronic elevation of the right hemidiaphragm. There is a surgical sutures are seen al donny the right hemidiaphragm. There is right basilar subsegmental atelectasis. Minimal atelectasis is also seen within the lingula. The lungs are grossly clear, there is no concerning parenchymal mass or nodule identified. There is no pleural effusion or pneumothorax seen. The tracheobronchial tree i s patent. MEDIASTINUM: There is satisfactory enhancement of the pulmonary artery and its branches, there is no CT evidence for pulmonary embolism. There are no greater than 1 cm hilar or mediastinal lymph nodes. No cardiomegaly or pericardial effusion is seen. Moderate coronary artery calcifications are evide nt. OTHER: Again there is redemonstration of findings suggesting diffuse hepatic steatosis. Probable hepa tic cysts are stable from 2017. Very small hiatal hernia. IMPRESSION: 1. No evidence of pulmonary embolism. 2. Chronic right hemidiaphragm elevation and right basilar atelectasis.
== END | disposition home or self-care (01) ==
LOC: RADCTMAIN 14:41
PROVIDERS: ATTEND Internal Medicine
DX: J98.11 Atelectasis (principal); J98.6 Disorders of diaphragm
CPT/HCPCS: 82565; 84520; 71275; 36415; Q9967

== ENCOUNTER 2018-10-19 14:56 | Observation (INO) | payer MEDICARE ==
--- NOTE | 2018-10-19 15:57 | ED ---
General Adult HPI - General Source: patient, RN notes reviewed Mode of arrival: ambulatory Limitations: no limitations <Ector Bell - Last Filed: 10/19/18 17:03> <Omid Rendon - Last Filed: 10/19/18 19:55> - General Chief complaint: Shortness of Breath Stated complaint: JAYDON Time Seen by Provider: 10/19/18 15:00 - History of Present Illness Initial comments: This a 77-year-old female presents emergency Department complaining of shortness of breath per patient states it's been intermittent over the last couple of months. Patient states over the last 2 weeks it has gotten progressively worse but there are days when she does not have any shortness of breath. Patient states the shortness of breath is much worse with exertion. Patient denies any chest pain or palpitations. Patient denies any fever chills per patient states she's had a dry cough. Patient denies any swelling to the legs or calf tende rness. Patient has had a recent computed tomography scan to rule out PE and it was negative. Patient denies any abdominal pain patient denies nausea vomiting diarrhea. Patient denies any black or bloody stools. (Ector Bell) - Related Data Home Medications Medication Instructions Recorded Confirmed Aspirin 81 mg PO DAILY 11/20/13 10/19/18 Cholecalciferol [Vitamin D3 (25 1,000 unit PO DAILY 03/19/15 10/19/18 Mcg = 1000 Iu)] Temazepam [Restoril] 30 mg PO HS 09/20/16 10/19/18 Insulin Glargine,Hum.rec.anlog 15 units SQ HS 02/05/17 10/19/18 [Toujeo Solostar] Ibuprofen [Motrin] 600 mg PO HS 06/09/17 10/19/18 Insulin Lispro [humaLOG Kwikpen] See Protocol SQ ACHS 06/09/17 10/19/18 Metoprolol Succinate [Toprol XL] 50 mg PO DAILY 06/09/17 10/19/18 Vitamin E (Dl,Tocopheryl Acet) 400 unit PO DAILY 10/19/18 10/19/18 [Vitamin E] Allergies Allergy/AdvReac Type Severity Reaction Status Date / Time meperidine HCl [From Demerol] Allergy Severe Anaphylaxis Verified 10/19/18 16:06 shellfish derived [Shellfish] Allergy Severe Anaphylaxis Verified 10/19/18 16:06 morphine Allergy Intermediate SEVERE Verified 10/19/18 16:06 ITCHING, HARD TO BREATH cefuroxime axetil Allergy Unknown Verified 10/19/18 16:06 [From Ceftin] codeine Allergy Abdominal Verified 10/19/18 16:06 Pain, DYSPNEA erythromycin base Allergy Nausea Verified 10/19/18 16:06 [From E-Mycin] fentanyl Allergy FELT Verified 10/19/18 16:06 DRUGGED FOR LONG TIME hydrocodone bitartrate Allergy Abdominal Verified 10/19/18 16:06 [From Lortab] Pain, DYSPNEA lisinopril Allergy Anxiety, Verified 10/19/18 16:06 CAN'T FUNCTION lorazepam [From Ativan] Allergy DILUSIONS Verified 10/19/18 16:06 milk Allergy Diarrhea Verified 10/19/18 16:06 oxycodone HCl [From Percocet] Allergy DYSPNEA, Verified 10/19/18 16:06 ITCHING Review of Systems ROS Other: All systems not noted in ROS Statement are negative. <Ector Bell - Last Filed: 10/19/18 17:03> ROS Other: All systems not noted in ROS Statement are negative. <Omid Rendon - Last Filed: 10/19/18 19:55> ROS Statement: Those systems with pertinent positive or pertinent negative responses have been documented in the HPI. Past Medical History Past Medical History: Diabetes Mellitus, Hypertension, Musculoskeletal Disorder, Pneumonia, Skin Disorder Additional Past Medical History / Comment(s): MINOR Hiatal Hernia. HX Shingles. CHRONIC BACK PAIN. DIVERTICULITIS W/ PERFORATION 08/23/16, HAS COLOSTOMY; POST- OP PNEUMONIA, PARLYZED DIAPHRAGM. SKIN DRY, ITCHING. History of Any Multi-Drug Resistant Organisms: None Reported Past Surgical History: Back Surgery, Bowel Resection, Heart Catheterization Additional Past Surgical History / Comment(s): Mult Back Surgeries-Back, Neck Fusions. Epidural Spinal INJ. Levi Cataracts. LAPAROSCOPY, MORGAN'S PROC, COLOSTOMY 08/23/16. REPAIR PARALYZED DIAPHRAGM 11/14/16. reversal of colostomy in february,. neck surgery 11-11-17 done in [place] Past Anesthesia/Blood Transfusion Reactions: Previous Problems w/ Anesthesia Additional Past Anesthesia/Blood Transfusion Reaction / Comment(s): Stopped breathing POST-OP R/T ALLERGY TO PAIN RX, "over medicated" - had to get narcan. Past Psychological History: Anxiety Smoking Status: Former smoker Past Alcohol Use History: None Reported Past Drug Use History: None Reported - Past Family History Brother(s) Family Medical History: Cancer <Ector Bell - Last Filed: 10/19/18 17:03> General Exam Limitations: no limitations <Ector Bell - Last Filed: 10/19/18 17:03> - General Exam Comments Initial Comments: GENERAL: Patient is well-developed and well-nourished. Patient is nontoxic and well- hydrated and is in mild distress. ENT: Neck is soft and supple. No significant lymphadenopathy is noted. Oropharynx is clear. Moist mucous membranes. Neck has full range of motion without eliciting any pain. EYES: The sclera were anicteric and conjunctiva were pink and moist. Extraocular movements were intact and pupils were equal round and reactive to light. Eyelids were unremarkable. PULMONARY: Patient has some expiratory wheezing. CARDIOVASCULAR: There is a regular rate and rhythm without any murmurs gallops or rubs. ABDOMEN: Soft and nontender with normal bowel sounds. No palpable organomegaly was noted. There is no palpable pulsatile mass. SKIN: Skin is clear with no lesions or rashes and otherwise unremarkable. NEUROLOGIC: Patient is alert and oriented x3. Cranial nerves II through XII are grossly intact. Motor and sensory are also intact. Normal speech, volume and content. Symmetrical smile. MUSCULOSKELETAL: Normal extremities with adequate strength and full range of motion. No lower extremity swelling or edema. No calf tenderness. LYMPHATICS: No significant lymphadenopathy is noted PSYCHIATRIC: Normal psychiatric evaluation. (Ector Bell) Course <Omid Rendon - Last Filed: 10/19/18 19:55> Vital Signs 10/19/18 15:04 Temperature 97.5 F L Pulse Rate 89 Respiratory 24 Rate Blood Pressure 133/78 O2 Sat by Pulse 95 Oximetry - Reevaluation(s) Reevaluation #1: 10/19/18 19:53 The patient was endorsed me by Dr. Bell pending evaluation of CAT scan and labs. Patient does present with complaints of exertional dyspnea going on for at least last several weeks and likely longer. No chest pain she does states she had a CAT scan to rule out PE 2 weeks ago she still demonstrated a elevated d- dimer and the CAT scan was ordered that was negative for acute processes. She had a cath many years ago has not had one since the symptoms are suspicious for angina. Case is discussed with Dr. Boston (Omid Rendon) Medical Decision Making <Ector Bell - Last Filed: 10/19/18 17:03> - Lab Data Result diagrams: 10/19/18 16:25 10/19/18 16:25 <Omid Rendon - Last Filed: 10/19/18 19:55> - Medical Decision Making EKG shows sinus tachycardia at [address] interval is 134 QRS is 70 QT interval 340 QTC is 447 per patient's EKG shows no ST segment elevation. Dr. Rendon be taking over the care of this patient at 5 PM (Ector Bell) - Lab Data Lab Results 10/19/18 10/19/18 10/19/18 Range/Units 16:25 16:25 16:25 WBC 4.6 (3.8-10.6) k/uL RBC 5.42 H (3.80-5.40) m/uL Hgb 15.4 (11.4-16.0) gm/dL Hct 46.6 H (34.0-46.0) % MCV 86.1 (80.0-100.0) fL MCH 28.4 (25.0-35.0) pg MCHC 33.0 (31.0-37.0) g/dL RDW 14.6 (11.5-15.5) % Plt Count 150 (150-450) k/uL Neutrophils % 50 % Lymphocytes % 36 % Monocytes % 9 % Eosinophils % 2 % Basophils % 0 % Neutrophils # 2.3 (1.3-7.7) k/uL Lymphocytes # 1.7 (1.0-4.8) k/uL Monocytes # 0.4 (0-1.0) k/uL Eosinophils # 0.1 (0-0.7) k/uL Basophils # 0.0 (0-0.2) k/uL PT 9.8 (9.0-12.0) sec INR 0.9 (<1.2) APTT 23.5 (22.0-30.0) sec D-Dimer 1.96 H (<0.60) mg/L FEU Sodium 140 (137-145) mmol/L Potassium 4.3 (3.5-5.1) mmol/L Chloride 110 H (98-107) mmol/L Carbon Dioxide 22 (22-30) mmol/L Anion Gap 8 mmol/L BUN 26 H (7-17) mg/dL Creatinine 1.11 H (0.52-1.04) mg/dL Est GFR (CKD-EPI)AfAm 56 (>60 ml/min/1.73 sqM) Est GFR (CKD-EPI)NonAf 48 (>60 ml/min/1.73 sqM) Glucose 185 H (74-99) mg/dL Calcium 9.7 (8.4-10.2) mg/dL Magnesium 1.8 (1.6-2.3) mg/dL Total Bilirubin 0.5 (0.2-1.3) mg/dL AST 21 (14-36) U/L ALT 17 (9-52) U/L Alkaline Phosphatase 98 (38-126) U/L Troponin I (0.000-0.034) ng/mL NT-Pro-B Natriuret Pep pg/mL Total Protein 6.7 (6.3-8.2) g/dL Albumin 3.9 (3.5-5.0) g/dL 10/19/18 10/19/18 Range/Units 16:25 16:25 WBC (3.8-10.6) k/uL RBC (3.80-5.40) m/uL Hgb (11.4-16.0) gm/dL Hct (34.0-46.0) % MCV (80.0-100.0) fL MCH (25.0-35.0) pg MCHC (31.0-37.0) g/dL RDW (11.5-15.5) % Plt Count (150-450) k/uL Neutrophils % % Lymphocytes % % Monocytes % % Eosinophils % % Basophils % % Neutrophils # (1.3-7.7) k/uL Lymphocytes # (1.0-4.8) k/uL Monocytes # (0-1.0) k/uL Eosinophils # (0-0.7) k/uL Basophils # (0-0.2) k/uL PT (9.0-12.0) sec INR (<1.2) APTT (22.0-30.0) sec D-Dimer (<0.60) mg/L FEU Sodium (137-145) mmol/L Potassium (3.5-5.1) mmol/L Chloride (98-107) mmol/L Carbon Dioxide (22-30) mmol/L Anion Gap mmol/L BUN (7-17) mg/dL Creatinine (0.52-1.04) mg/dL Est GFR (CKD-EPI)AfAm (>60 ml/min/1.73 sqM) Est GFR (CKD-EPI)NonAf (>60 ml/min/1.73 sqM) Glucose (74-99) mg/dL Calcium (8.4-10.2) mg/dL Magnesium (1.6-2.3) mg/dL Total Bilirubin (0.2-1.3) mg/dL AST (14-36) U/L ALT (9-52) U/L Alkaline Phosphatase (38-126) U/L Troponin I <0.012 (0.000-0.034) ng/mL NT-Pro-B Natriuret Pep 30 pg/mL Total Protein (6.3-8.2) g/dL Albumin (3.5-5.0) g/dL Disposition <Ector Bell - Last Filed: 10/19/18 17:03> <Omid Rendon - Last Filed: 10/19/18 19:55> Clinical Impression: Unstable angina Disposition: ADMITTED IP TO THIS [facility] Condition: Stable Referrals: Umesh Boston MD [Primary Care Provider] - 1-2 days
--- NOTE | 2018-10-19 17:01 | XR ---
EXAMINATION TYPE: XR chest 2V DATE OF EXAM: 10/19/2018 COMPARISON: 09/30/2018 HISTORY: Cough TECHNIQUE: Frontal and lateral views of the chest are obtained. FINDINGS: Heart and mediastinum are normal. There is some linear density in the right lower lung fie ld consistent with subsegmental atelectasis. There is slight elevated right diaphragm. There is no he art failure. Bones are osteopenic. IMPRESSION: Mild subsegmental atelectasis on the right side. Normal heart. Mild chronic elevated rig ht diaphragm. No change.
[2018-10-19 17:22] LABS: Basophils % (A) 0 %; Eosinophils # (A) 0.1 k/uL (0-0.7); Eosinophils % (A) 2 %; HCT 46.6 % (34.0-46.0); HGB 15.4 gm/dL (11.4-16.0); Lymphocytes # (A) 1.7 k/uL (1.0-4.8); Lymphocytes % (A) 36 %; MCH 28.4 pg (25.0-35.0); MCV 86.1 fL (80.0-100.0); Mean Platelet Volume 8.9; Monocytes # (A) 0.4 k/uL (0-1.0); Monocytes % (A) 9 %; Neutrophils # (A) 2.3 k/uL (1.3-7.7); Neutrophils % (A) 50 %; Platelet Count 150 k/uL (150-450); RBC 5.42 m/uL (3.80-5.40); RDW 14.6 % (11.5-15.5); WBC 4.6 k/uL (3.8-10.6)
[2018-10-19 17:30] LABS: Albumin 3.9 g/dL (3.5-5.0); Calcium 9.7 mg/dL (8.4-10.2); Magnesium 1.8 mg/dL (1.6-2.3); Potassium 4.3 mmol/L (3.5-5.1); Total Bilirubin 0.5 mg/dL (0.2-1.3); Total Protein 6.7 g/dL (6.3-8.2)
[2018-10-19 17:37] LABS: INR 0.9 (<1.2); Partial Thromboplastin Time 23.5 sec (22.0-30.0); Prothrombin Time 9.8 sec (9.0-12.0)
[2018-10-19 17:54] LABS: D-Dimer 1.96 mg/L FEU (<0.60)
[2018-10-19] MEDS ORDERED: SODIUM CHLORIDE 0.9% 500 ML 500 ML IV STA (18:25)
--- NOTE | 2018-10-19 19:03 | CT ---
EXAMINATION TYPE: CT angio chest DATE OF EXAM: 10/19/2018 6:44 PM COMPARISON: 09/30/2018 HISTORY: Shortness of breath. CT DLP: 305.3 mGycm Automated exposure control for dose reduction was used. CONTRAST: CTA scan of the thorax is performed with IV Contrast, patient injected with 51ml mL of Isovue 370, pu lmonary embolism protocol. There are 3-D post processed images.. FINDINGS: There is minimal subsegmental atelectasis at the lung bases. There is no evidence of a pulmonary mass . Heart size is normal. There is no pericardial effusion. There is no pleural effusion. There are no hilar masses. There is normal contrast opacification of the pulmonary arteries. I see n o filling defects. There is 15 mm pretracheal lymph node. There is anterior mediastinal lymph nodes t hat measure less than 1 cm. The bony thorax appears intact. There is some spurring in the thoracic sp ine. IMPRESSION: NO EVIDENCE OF PULMONARY EMBOLISM. ENLARGED PRETRACHEAL LYMPH NODE OF UNCERTAIN SIGNIFICANCE. There i s some scarring and atelectasis remaining at the right lung base.
[2018-10-19] MEDS ORDERED: HEPARIN SODIUM,PORCINE 5,000 UNIT/ML 1 ML VIAL IV ONE (19:55)
[2018-10-19] MEDS ORDERED: NITROGLYCERIN SL TABS 0.4 MG TAB SUBLINGUAL PRN (19:55)
[2018-10-19] MEDS ORDERED: HEPARIN SOD,PORK IN 0.45% NACL 25,000 UNIT in 0.45% NACL 1 250ML.BAG IV SCH (20:00)
[2018-10-19] MEDS: SODIUM CHLORIDE 0.9% 1,000 ML IV SCH (22:18)
[2018-10-19] MEDS ORDERED: HEPARIN SODIUM,PORCINE 5,000 UNIT/ML 1 ML VIAL IV PRN (22:33)
[2018-10-19 22:39] LABS: Glucose,Whole Blood 191 mg/dL (75-99)
[2018-10-19] MEDS: IBUPROFEN 600 MG TAB PO SCH (22:55)
[2018-10-19] MEDS: TEMAZEPAM 30 MG CAP PO SCH (22:56)
[2018-10-19] MEDS: INSULIN DETEMIR (LEVEMIR) 100 UNIT/ML SYR SQ SCH (22:56)
[2018-10-19] MEDS: INSULIN ASPART (NovoLOG) 100 UNIT/ML VIAL SQ SCH (22:57)
[2018-10-19] MEDS: NITROGLYCERIN OINT 1 INCH/GM PACKET TOPICAL SCH (22:58)
[2018-10-20 04:57] LABS: Cholesterol 157 mg/dL (<200); HDL Cholesterol 31 mg/dL (40-60); LDL Cholesterol,Calculated 90 mg/dL (0-99); Triglycerides 179 mg/dL (<150)
[2018-10-20] MEDS: NITROGLYCERIN OINT 1 INCH/GM PACKET TOPICAL SCH ×4 (05:29→23:51)
[2018-10-20] MEDS ORDERED: IBUPROFEN 600 MG TAB PO STA (05:31)
[2018-10-20] MEDS: INSULIN ASPART (NovoLOG) 100 UNIT/ML VIAL SQ SCH ×5 (05:35→20:33)
[2018-10-20 06:38] LABS: Basophils % (A) 1 %; Eosinophils # (A) 0.1 k/uL (0-0.7); Eosinophils % (A) 2 %; HGB 14.5 gm/dL (11.4-16.0); Lymphocytes # (A) 1.7 k/uL (1.0-4.8); Lymphocytes % (A) 40 %; MCH 29.2 pg (25.0-35.0); MCHC 32.9 g/dL (31.0-37.0); MCV 88.7 fL (80.0-100.0); Mean Platelet Volume 9.3; Monocytes # (A) 0.4 k/uL (0-1.0); Monocytes % (A) 9 %; Neutrophils # (A) 1.9 k/uL (1.3-7.7); Neutrophils % (A) 45 %; Platelet Count 136 k/uL (150-450); RBC 4.96 m/uL (3.80-5.40); RDW 13.7 % (11.5-15.5); WBC 4.2 k/uL (3.8-10.6)
[2018-10-20 06:49] LABS: Glucose,Whole Blood 130 mg/dL (75-99)
[2018-10-20 07:57] VITALS: RESP 18
[2018-10-20] MEDS ORDERED: ASPIRIN 325 MG TAB PO SCH (09:00)
[2018-10-20 09:32] LABS: Albumin 3.6 g/dL (3.5-5.0); Potassium 4.3 mmol/L (3.5-5.1); Total Bilirubin 0.3 mg/dL (0.2-1.3); Total Protein 6.3 g/dL (6.3-8.2)
--- NOTE | 2018-10-20 10:34 | P.HPIM ---
History of Present Illness H&P Date: 10/20/18 This is a 77-year-old female patient presented to the ER with complaints of shortness of breath. Patient reports his this has been intermittently occurring over the last couple months. Patient reports this does come and go. Patient reports that the shortness of breath is much worse with exertion. Patient denies any chest pain but does complain of an aching back. Patient also reports a dry cough. Patient denies fever or recent illness. Patient does have a past medical history of diabetes mellitus, hypertension, musculoskeletal disorder, pneumonia, back surgery, ex-smoker, colostomy with reversal in February 2017 and anxiety. Chest x-ray completed showing mild subsegmental atelectasis in the right side. Normal heart. Mild chronic elevated right diaphragm no change. D- dimer elevated at 1.96. CTA of the chest completed showing no evidence of pulmonary embolism. Enlarged pretracheal lymph node of uncertain significance. There is some scarring and atelectasis remaining at the right lung base. Troponins negative 2. EKG showing sinus tachycardia. Nonspecific ST and T- wave abnormality. Patient started on heparin drip cardiology services have been consulted. Patient also complaining about left lower extremity cramping and pain. Will order venous Doppler to rule out DVT. 2-D echo has been ordered per cardiology services. At this time patient is still complaining of intermittent shortness of breath with occasional black pain. Patient denies chest pain. Denies nausea vomiting or diarrhea. Patient denies any urinary burning or frequency. Review of Systems Please refer to HPI otherwise unremarkable Past Medical History Past Medical History: Diabetes Mellitus, Hypertension, Musculoskeletal Disorder, Pneumonia, Skin Disorder Additional Past Medical History / Comment(s): MINOR Hiatal Hernia. HX Shingles. CHRONIC BACK PAIN. DIVERTICULITIS W/ PERFORATION 08/23/16, had COLOSTOMY was reversed; POST-OP PNEUMONIA, PARLYZED DIAPHRAGM. SKIN DRY, ITCHING. History of Any Multi-Drug Resistant Organisms: None Reported Past Surgical History: Back Surgery, Bowel Resection, Heart Catheterization Additional Past Surgical History / Comment(s): Mult Back Surgeries-Back, Neck Fusions. Epidural Spinal INJ. Levi Cataracts. LAPAROSCOPY, MORGAN'S PROC, COLOSTOMY 08/23/16. REPAIR PARALYZED DIAPHRAGM 11/14/16. reversal of colostomy in february,. neck surgery 6-6-18 done in [place] Past Anesthesia/Blood Transfusion Reactions: Previous Problems w/ Anesthesia Additional Past Anesthesia/Blood Transfusion Reaction / Comment(s): Stopped breathing POST-OP R/T ALLERGY TO PAIN RX, "over medicated" - had to get narcan. Past Psychological History: Anxiety Additional Psychological History / Comment(s): OCC R/T HEALTH CONCERNS Smoking Status: Former smoker Past Alcohol Use History: None Reported Additional Past Alcohol Use History / Comment(s): Started smoking at age 17, Smoked 1 pp week, quit 1990 Past Drug Use History: None Reported - Past Family History Brother(s) Family Medical History: Cancer Medications and Allergies Home Medications Medication Instructions Recorded Confirmed Type Aspirin 81 mg PO DAILY 11/20/13 10/19/18 History Cholecalciferol [Vitamin D3 (25 1,000 unit PO DAILY 03/19/15 10/19/18 History Mcg = 1000 Iu)] Temazepam [Restoril] 30 mg PO HS 09/20/16 10/19/18 History Insulin Glargine,Hum.rec.anlog 15 units SQ HS 02/05/17 10/19/18 History [Toujeo Solostar] Ibuprofen [Motrin] 600 mg PO HS 06/09/17 10/19/18 History Insulin Lispro [humaLOG Kwikpen] See Protocol SQ ACHS 06/09/17 10/19/18 History Metoprolol Succinate [Toprol XL] 50 mg PO DAILY 06/09/17 10/19/18 History Vitamin E (Dl,Tocopheryl Acet) 400 unit PO DAILY 10/19/18 10/19/18 History [Vitamin E] Allergies Allergy/AdvReac Type Severity Reaction Status Date / Time meperidine HCl [From Demerol] Allergy Severe Anaphylaxis Verified 10/19/18 22:37 shellfish derived [Shellfish] Allergy Severe Anaphylaxis Verified 10/19/18 22:37 morphine Allergy Intermediate SEVERE Verified 10/19/18 22:37 ITCHING, HARD TO BREATH cefuroxime axetil Allergy Unknown Verified 10/19/18 22:37 [From Ceftin] codeine Allergy Abdominal Verified 10/19/18 22:37 Pain, DYSPNEA erythromycin base Allergy Nausea Verified 10/19/18 22:37 [From E-Mycin] fentanyl Allergy FELT Verified 10/19/18 22:37 DRUGGED FOR LONG TIME hydrocodone bitartrate Allergy Abdominal Verified 10/19/18 22:37 [From Lortab] Pain, DYSPNEA lisinopril Allergy Anxiety, Verified 10/19/18 22:37 CAN'T FUNCTION lorazepam [From Ativan] Allergy DILUSIONS Verified 10/19/18 22:37 milk Allergy Diarrhea Verified 10/19/18 22:37 oxycodone HCl [From Percocet] Allergy DYSPNEA, Verified 10/19/18 22:37 ITCHING Physical Exam Vitals: Vital Signs Temp Pulse Pulse Resp BP BP Pulse Ox 10/20/18 07:25 98.0 F 79 18 97/63 93 L 10/20/18 05:22 97.5 F L 74 20 118/69 92 L 10/19/18 22:50 16 10/19/18 22:37 97.4 F L 76 16 151/79 95 10/19/18 22:00 78 126/67 10/19/18 21:30 74 121/69 10/19/18 21:00 76 159/75 10/19/18 20:30 135/77 10/19/18 20:00 139/79 98 10/19/18 19:30 143/95 98 10/19/18 19:00 138/77 98 10/19/18 18:30 141/77 98 10/19/18 18:01 129/79 10/19/18 17:30 138/70 97 10/19/18 17:00 125/79 97 10/19/18 16:30 135/74 10/19/18 16:00 125/79 96 10/19/18 15:37 98 10/19/18 15:04 97.5 F L 89 24 133/78 95 Intake and Output 10/19/18 10/20/18 10/20/18 22:59 06:59 14:59 Other: Voiding Method Toilet Toilet Weight 72.575 kg Head normocephalic Neck supple Lungs clear to auscultation bilaterally no wheezing or crackles Heart regular rate and rhythm S1-S2, no rub or gallop Abdomen is soft nontender nondistended positive bowel sounds no hepatosplenomegaly Extremities no edema Neuro alert and orientated to 3 Results CBC & Chem 7: 10/20/18 05:47 10/20/18 05:47 Labs: Abnormal Lab Results - Last 24 Hours (Table) 10/19/18 10/19/18 10/19/18 Range/Units 16:25 16:25 16:25 RBC 5.42 H (3.80-5.40) m/uL Hct 46.6 H (34.0-46.0) % Plt Count (150-450) k/uL APTT (22.0-30.0) sec D-Dimer 1.96 H (<0.60) mg/L FEU Chloride 110 H (98-107) mmol/L Carbon Dioxide (22-30) mmol/L BUN 26 H (7-17) mg/dL Creatinine 1.11 H (0.52-1.04) mg/dL Glucose 185 H (74-99) mg/dL POC Glucose (mg/dL) (75-99) mg/dL Triglycerides (<150) mg/dL HDL Cholesterol (40-60) mg/dL 10/19/18 10/20/18 10/20/18 Range/Units 22:35 02:00 05:47 RBC (3.80-5.40) m/uL Hct (34.0-46.0) % Plt Count 136 L (150-450) k/uL APTT (22.0-30.0) sec D-Dimer (<0.60) mg/L FEU Chloride (98-107) mmol/L Carbon Dioxide (22-30) mmol/L BUN (7-17) mg/dL Creatinine (0.52-1.04) mg/dL Glucose (74-99) mg/dL POC Glucose (mg/dL) 191 H (75-99) mg/dL Triglycerides 179 H (<150) mg/dL HDL Cholesterol 31 L (40-60) mg/dL 10/20/18 10/20/18 10/20/18 Range/Units 05:47 05:47 06:45 RBC (3.80-5.40) m/uL Hct (34.0-46.0) % Plt Count (150-450) k/uL APTT 60.9 H (22.0-30.0) sec D-Dimer (<0.60) mg/L FEU Chloride 113 H (98-107) mmol/L Carbon Dioxide 21 L (22-30) mmol/L BUN 28 H (7-17) mg/dL Creatinine (0.52-1.04) mg/dL Glucose 140 H (74-99) mg/dL POC Glucose (mg/dL) 130 H (75-99) mg/dL Triglycerides (<150) mg/dL HDL Cholesterol (40-60) mg/dL Thrombosis Risk Factor Assmnt - Choose All That Apply Any of the Below Risk Factors Present?: Yes Each Factor Represents 1 point: Obesity (BMI >25) Other Risk Factors: Yes Each Risk Factor Represents 3 Points: Age 75 years or older Other congenital or acquired thrombophilia - If yes, enter type in comment: No Thrombosis Risk Factor Assessment Total Risk Factor Score: 4 Thrombosis Risk Factor Assessment Level: Moderate Risk Assessment and Plan Assessment: 1. Intermittent Shortness of breath. Chest x-ray completed showing mild subsegmental atelectasis in the right side. Normal heart. Mild chronic elevated right diaphragm no change. D-dimer elevated at 1.96. CTA completed showing no evidence for pulmonary embolism. Enlarged pretracheal lymph node of uncertain significance. There is some scarring and atelectasis remaining at the right lung base. Cardiology services have been consulted. Troponins negative 2. Patient started on heparin drip. 2-D echo has been ordered. 2. Diabetes mellitus type 2. Home meds resumed 3. Essential Hypertension 4. History of pneumonia 5. History of chronic back pain 6. History of diverticulitis with perforation in August 2016 7. Generalized anxiety 8. Left leg pain. Will order venous Doppler to rule out DVT Time with Patient: Greater than 30 (Greater than 60% of the total time spent in counseling and coordination of care. I performed an examination of the patient and discussed their management with the Nurse Practitioner. I have reviewed the Nurse Practitioner's notes and agree with the documented findings and plan of care)
[2018-10-20] MEDS ORDERED: CAFFEINE CITRATE 60 MG/3 ML VIAL IV PRN (11:24)
[2018-10-20] MEDS ORDERED: REGADENOSON 0.4 MG/5 ML SYRINGE IV ONE (11:24)
[2018-10-20] MEDS ORDERED: AMINOPHYLLINE 500 MG/20 ML VIAL IV PRN (11:24)
--- NOTE | 2018-10-20 11:48 | P.CRDCN ---
History of Present Illness History of present illness: This is a pleasant 77-year-old female past medical history significant for diabetes mellitus, hypertension, right hemidiaphragm paralysis, mild COPD and obesity with a BMI of 32. She follows in the office with Dr. Murray. We have been asked to see her in consultation secondary to shortness of breath and chest pain. She presented to the emergency department yesterday afternoon complaining of exertional shortness of breath distant, ongoing for the previous couple of months. About 2 weeks ago her shortness of breath seems to increase. She saw Dr. Andrés scherer as an outpatient and was started on antibiotics for probable bronchitis. She states she finished a course of antibiotics but has not been feeling any better from shortness of breath perspective. She continues to have a mild dry cough and yesterday she started having discomfort in her chest that was sharp and stabbing and radiated through to her back. She continues to have mild achy sensation in the mid upper back at the time of my exam. She denies any further symptoms of chest discomfort. EKG reveals sinus tachycardia heart rate 104 with nonspecific T-wave flattening noted. Chest x-ray reveals mid subsegmental atelectasis on the right side, mild chronic elevated right diaphragm. No acute cardiopulmonary process. CTA chest negative for PE, pericardial effusion with some scarring and atelectasis at the right lung base. Laboratory data reviewed, WBC 4.2, hemoglobin 14.5, platelets 136, d-dimer 1.96, sodium 142, potassium 4.3, creatinine on admission 1.11, repeat this morning 0.88, GFR of 64, magnesium 1.8, cardiac enzymes negative 3, LDL 90, HDL 31. Current cardiac medications include aspirin 81 mg daily, Toprol 50 mg daily. She underwent cardiac catheterization in 2014 revealing minimal nonobstructive coronary artery disease in the proximal LAD, otherwise normal coronary arteries. Most recent echocardiogram obtained in the office reveals preserved left ventricular systolic function with ejection fraction 55-60%. At the time of my exam: CONSTITUTIONAL: Denies fever. Denies chills. EYES: Denies blurred vision. Denies vision changes. Denies eye pain. EARS, NOSE, MOUTH & THROAT: Denies headache. Denies sore throat. Denies ear pain. CARDIOVASCULAR: Denies chest pain. Complains of shortness of breath. Denies orthopnea. Denies PND. Denies palpitations. RESPIRATORY: Denies cough. GASTROINTESTINAL: Denies abdominal pain. Denies diarrhea. Denies constipation. Denies nausea. Denies vomiting. MUSCULOSKELETAL: Denies myalgias. INTEGUMENTARY: Denies pruitis. Denies rash. NEUROLOGIC: Denies numbness. Denies tingling. Denies weakness. PSYCHIATRIC: Denies anxiety. Denies depression. ENDOCRINE: Denies fatigue. Denies weight change. Denies polydipsia. Denies polyurina. GENITOURINARY: Denies burning, hematuria or urgency with micturation. HEMATOLOGIC: Denies history of anemia. Denies bleeding. Blood pressure 97/63 heart rate 79 afebrile maintaining oxygen saturation on room air GENERAL: This is a 77-year-old female in no apparent distress at the time of my examination. HEENT: Head is atraumatic, normocephalic. Pupils are equal, round. Sclerae anicteric. Conjunctivae are clear. Mucous membranes of the mouth are moist. Neck is supple. There is no jugular venous distention. No carotid bruit is heard. LUNGS: Clear to auscultation no wheezes, rales or rhonchi. No chest wall tenderness is noted on palpation or with deep breathing. HEART: Regular rate and rhythm without murmurs, rubs or gallops. S1 and S2 heard. ABDOMEN: Soft, nontender. Bowel sounds are heard. No organomegaly noted. EXTREMITIES: No evidence of peripheral edema and no calf tenderness noted. VASCULAR: Radial and dorsalis pedis pulses palpated, no evidence of clubbing. NEUROLOGIC: Patient is awake, alert and oriented x3. ASSESSMENT Exertional shortness of breath and chest discomfort. An acute coronary event has been ruled out. No evidence of heart failure, she is overall euvolemic. Diabetes mellitus Hypertension COPD, mild Obesity, BMI 32 PLAN An acute coronary event has been ruled out. Discontinue heparin infusion. Echocardiogram has been obtained and will be reviewed. Perform Lexiscan stress test to assess for reversible cardiac ischemia. Symptoms possibly related to diastolic dysfunction, however she is currently euvolemic. If stress test is normal ongoing evaluation with Pulmonary service. Thank you kindly for this consultation. Nurse Practitioner note has been reviewed, I agree with a documented findings and plan of care. Patient was seen and examined. Past Medical History Past Medical History: Diabetes Mellitus, Hypertension, Musculoskeletal Disorder, Pneumonia, Skin Disorder Additional Past Medical History / Comment(s): MINOR Hiatal Hernia. HX Shingles. CHRONIC BACK PAIN. DIVERTICULITIS W/ PERFORATION 08/23/16, had COLOSTOMY was reversed; POST-OP PNEUMONIA, PARLYZED DIAPHRAGM. SKIN DRY, ITCHING. History of Any Multi-Drug Resistant Organisms: None Reported Past Surgical History: Back Surgery, Bowel Resection, Heart Catheterization Additional Past Surgical History / Comment(s): Mult Back Surgeries-Back, Neck Fusions. Epidural Spinal INJ. Levi Cataracts. LAPAROSCOPY, MORGAN'S PROC, COLOSTOMY 08/23/16. REPAIR PARALYZED DIAPHRAGM 11/14/16. reversal of colostomy in february,. neck surgery 11-11-17 done in [place] Past Anesthesia/Blood Transfusion Reactions: Previous Problems w/ Anesthesia Additional Past Anesthesia/Blood Transfusion Reaction / Comment(s): Stopped breathing POST-OP R/T ALLERGY TO PAIN RX, "over medicated" - had to get narcan. Past Psychological History: Anxiety Additional Psychological History / Comment(s): OCC R/T HEALTH CONCERNS Smoking Status: Former smoker Past Alcohol Use History: None Reported Additional Past Alcohol Use History / Comment(s): Started smoking at age 17, Smoked 1 pp week, quit 1990 Past Drug Use History: None Reported - Past Family History Brother(s) Family Medical History: Cancer Medications and Allergies Home Medications Medication Instructions Recorded Confirmed Type Aspirin 81 mg PO DAILY 11/20/13 10/19/18 History Cholecalciferol [Vitamin D3 (25 1,000 unit PO DAILY 03/19/15 10/19/18 History Mcg = 1000 Iu)] Temazepam [Restoril] 30 mg PO HS 09/20/16 10/19/18 History Insulin Glargine,Hum.rec.anlog 15 units SQ 02/05/17 10/19/18 History [Toujeo Solostar] Ibuprofen [Motrin] 600 mg PO HS 06/09/17 10/19/18 History Insulin Lispro [humaLOG Kwikpen] See Protocol SQ [facility] 06/09/17 10/19/18 History Metoprolol Succinate [Toprol XL] 50 mg PO DAILY 06/09/17 10/19/18 History Vitamin E (Dl,Tocopheryl Acet) 400 unit PO DAILY 10/19/18 10/19/18 History [Vitamin E] Allergies Allergy/AdvReac Type Severity Reaction Status Date / Time meperidine HCl [From Demerol] Allergy Severe Anaphylaxis Verified 10/19/18 22:37 shellfish derived [Shellfish] Allergy Severe Anaphylaxis Verified 10/19/18 22:37 morphine Allergy Intermediate SEVERE Verified 10/19/18 22:37 ITCHING, HARD TO BREATH cefuroxime axetil Allergy Unknown Verified 10/19/18 22:37 [From Ceftin] codeine Allergy Abdominal Verified 10/19/18 22:37 Pain, DYSPNEA erythromycin base Allergy Nausea Verified 10/19/18 22:37 [From E-Mycin] fentanyl Allergy FELT Verified 10/19/18 22:37 DRUGGED FOR LONG TIME hydrocodone bitartrate Allergy Abdominal Verified 10/19/18 22:37 [From Lortab] Pain, DYSPNEA lisinopril Allergy Anxiety, Verified 10/19/18 22:37 CAN'T FUNCTION lorazepam [From Ativan] Allergy DILUSIONS Verified 10/19/18 22:37 milk Allergy Diarrhea Verified 10/19/18 22:37 oxycodone HCl [From Percocet] Allergy DYSPNEA, Verified 10/19/18 22:37 ITCHING Physical Exam Vitals: Vital Signs Temp Pulse Pulse Resp BP BP Pulse Ox 10/20/18 07:25 98.0 F 79 18 97/63 93 L 10/20/18 05:22 97.5 F L 74 20 118/69 92 L 10/19/18 22:50 16 10/19/18 22:37 97.4 F L 76 16 151/79 95 10/19/18 22:00 78 126/67 10/19/18 21:30 74 121/69 10/19/18 21:00 76 159/75 10/19/18 20:30 135/77 10/19/18 20:00 139/79 98 10/19/18 19:30 143/95 98 10/19/18 19:00 138/77 98 10/19/18 18:30 141/77 98 10/19/18 18:01 129/79 10/19/18 17:30 138/70 97 10/19/18 17:00 125/79 97 10/19/18 16:30 135/74 10/19/18 16:00 125/79 96 10/19/18 15:37 98 10/19/18 15:04 97.5 F L 89 24 133/78 95 Intake and Output 10/19/18 10/20/18 10/20/18 22:59 06:59 14:59 Other: Voiding Method Toilet Weight 72.575 kg Results 10/20/18 05:47 10/20/18 05:47 Cardiac Enzymes 10/19/18 10/19/18 10/19/18 Range/Units 07:12 16:25 16:25 AST 21 (14-36) U/L Troponin I <0.012 <0.012 (0.000-0.034) ng/mL 10/20/18 Range/Units 02:00 AST (14-36) U/L Troponin I <0.012 (0.000-0.034) ng/mL Coagulation 10/19/18 10/20/18 Range/Units 16:25 05:47 PT 9.8 (9.0-12.0) sec APTT 23.5 60.9 H (22.0-30.0) sec Lipids 10/20/18 Range/Units 02:00 Triglycerides 179 H (<150) mg/dL Cholesterol 157 (<200) mg/dL HDL Cholesterol 31 L (40-60) mg/dL CBC 10/19/18 10/20/18 Range/Units 16:25 05:47 WBC 4.6 4.2 (3.8-10.6) k/uL RBC 5.42 H 4.96 (3.80-5.40) m/uL Hgb 15.4 14.5 (11.4-16.0) gm/dL Hct 46.6 H 44.0 (34.0-46.0) % Plt Count 150 136 L (150-450) k/uL Comprehensive Metabolic Panel 10/19/18 Range/Units 16:25 Sodium 140 (137-145) mmol/L Potassium 4.3 (3.5-5.1) mmol/L Chloride 110 H (98-107) mmol/L Carbon Dioxide 22 (22-30) mmol/L BUN 26 H (7-17) mg/dL Creatinine 1.11 H (0.52-1.04) mg/dL Glucose 185 H (74-99) mg/dL Calcium 9.7 (8.4-10.2) mg/dL AST 21 (14-36) U/L ALT 17 (9-52) U/L Alkaline Phosphatase 98 (38-126) U/L Total Protein 6.7 (6.3-8.2) g/dL Albumin 3.9 (3.5-5.0) g/dL Current Medications Generic Name Dose Route Start Last Admin Trade Name Freq PRN Reason Stop Dose Admin Aspirin 325 mg 10/20/18 09:00 Aspirin PO DAILY [facility] Cholecalciferol 1,000 unit 10/20/18 09:00 Vitamin D3 (25 Mcg = 1000 Iu) PO DAILY [facility] Heparin Sodium (Porcine) 0 unit 10/19/18 22:33 Heparin IV PER PROTOCOL PRN Low PTT Protocol Heparin Sodium/Sodium Chloride 250 mls @ 8.709 mls/hr 10/19/18 20:00 10/19/18 22:12 25,000 unit/ Sodium Chloride IV 12 units/kg/hr .Q24H ARELY 8.709 mls/hr Administration Protocol 12 UNITS/KG/HR Sodium Chloride 1,000 mls @ 20 mls/hr 10/19/18 20:00 10/19/18 22:18 Saline 0.9% IV 20 mls/hr .Q24H ARELY Administration Ibuprofen 600 mg 10/19/18 21:00 10/19/18 22:55 Motrin PO 600 mg HS ARELY Administration Insulin Aspart 0 unit 10/19/18 21:00 10/20/18 05:35 Novolog SQ Not Given ACHS [facility] Protocol Insulin Detemir 15 unit 10/19/18 21:00 10/19/18 22:56 Levemir SQ 15 unit HS ARELY Administration Metoprolol Succinate 50 mg 10/20/18 09:00 Toprol Xl PO DAILY [facility] Nitroglycerin 0.5 inch 10/20/18 00:00 10/20/18 05:29 Nitro-Bid Oint TOPICAL Not Given Q6HR [facility] Nitroglycerin 0.4 mg 10/19/18 19:55 Nitrostat SUBLINGUAL Q5M PRN Chest Pain Temazepam 30 mg 10/19/18 21:00 10/19/18 22:56 Restoril PO 30 mg HS ARE[facility] Administration Vitamin E 400 unit 10/20/18 09:00 Vitamin E PO DAILY [facility] Intake and Output 10/19/18 10/20/18 10/20/18 22:59 06:59 14:59 Other: Voiding Method Toilet Weight 72.575 kg 10/20/18 05:47 10/19/18 16:25
[2018-10-20 11:51] LABS: Glucose,Whole Blood 146 mg/dL (75-99)
--- NOTE | 2018-10-20 12:04 | ECHOF ---
Referral Reason:Exertional dyspnea MEASUREMENTS -------- HEIGHT: 149.9 cm WEIGHT: 72.6 kg BP: 118/69 RVIDd: 2.4 cm (< 3.3) IVSd: 1.3 cm (0.6 - 1.1) LVIDd: 3.3 cm (3.9 - 5.3) LVPWd: 1.2 cm (0.6 - 1.1) IVSs: 1.7 cm LVIDs: 2.4 cm LVPWs: 1.8 cm LA Diam: 2.7 cm (2.7 - 3.8) LAESV Index (A-L): 10.91 ml/m Ao Diam: 2.7 cm (2.0 - 3.7) AV Cusp: 1.4 cm (1.5 - 2.6) EPSS: 0.9 cm MV E Jorje: 0.60 m/s MV DecT: 385 ms MV A Jorje: 0.85 m/s MV E/A Ratio: 0.71 MV EF SLOPE: 32.51 mm/s (70 - 150) MV EXCURSION: 1.03 cm (> 18.000) FINDINGS -------- Sinus rhythm. This was a technically adequate study. The left ventricular size is normal. There is mild concentric left ventricular hypertrophy. The d iastolic filling pattern is normal for the age of the patient 10.83. The right ventricle is normal in size. Normal LA size by volume 22+/-6 ml/m2. The right atrium is normal in size. Lipomatous Hypertrophy of the atrial septum is present Aortic valve is trileaflet and is mildly thickened. The mitral valve leaflets are mildly thickened. Mild mitral annular calcification present. There is trace mitral regurgitation. The tricuspid valve appears structurally normal. The pulmonic valve was not well visualized. The aortic root size is normal. Normal inferior vena cava with normal inspiratory collapse consistent with estimated right atrial pre ssure of 5 mmHg. There is no pericardial effusion. CONCLUSIONS -------- 1. Sinus rhythm. 2. This was a technically adequate study. 3. The left ventricular size is normal. 4. There is mild concentric left ventricular hypertrophy. 5. The diastolic filling pattern is normal for the age of the patient 10.83 6. The right ventricle is normal in size. 7. Normal LA size by volume 22+/-6 ml/m2. 8. The right atrium is normal in size. 9. Lipomatous Hypertrophy of the atrial septum is present 10. Aortic valve is trileaflet and is mildly thickened. 11. The mitral valve leaflets are mildly thickened. 12. Mild mitral annular calcification present. 13. There is trace mitral regurgitation. 14. The tricuspid valve appears structurally normal. 15. The pulmonic valve was not well visualized. 16. The aortic root size is normal. 17. Normal inferior vena cava with normal inspiratory collapse consistent with estimated right atrial pressure of 5 mmHg. 18. There is no pericardial effusion. UNDERWEAR FINISHER: KATHY Maldonado
--- NOTE | 2018-10-20 12:47 | US ---
EXAMINATION TYPE: US venous doppler duplex LE DATE OF EXAM: 10/20/2018 11:23 AM COMPARISON: NONE CLINICAL HISTORY: r/o DVT. Elevated ddimer, difficulty breathing, no redness, no swelling, no hx of b lood clots, on heparin SIDE PERFORMED: Bilateral TECHNIQUE: The lower extremity deep venous system is examined utilizing real time linear array sonog patricia with graded compression, doppler sonography and color-flow sonography. VESSELS IMAGED: External Iliac Vein (EIV) Common Femoral Vein Deep Femoral Vein Greater Saphenous Vein * Femoral Vein Popliteal Vein Small Saphenous Vein * Proximal Calf Veins (* superficial vessels) Grayscale, color doppler, spectral doppler imaging performed of the deep veins of the lower extremiti es. There is normal flow, compressibility, vascular waveforms. Right Leg: Negative for DVT Left Leg: Negative for DVT IMPRESSION: No sonographic evidence of deep venous thrombosis within either lower extremity.
[2018-10-20] MEDS: METOPROLOL SUCCINATE (ER) 50 MG TAB.ER.24H PO SCH (15:27)
[2018-10-20] MEDS: VITAMIN E (DL,TOCOPHERYL ACET) 400 UNIT CAP PO SCH (15:28)
[2018-10-20] MEDS: CHOLECALCIFEROL 1,000 UNIT TAB PO SCH (15:28)
--- NOTE | 2018-10-20 15:47 | NM ---
EXAMINATION TYPE: NM stress lexiscan cardiolite DATE OF EXAM: 10/20/2018 COMPARISON: Prior nuclear medicine exam 03/07/2013 HISTORY: Chest pain TECHNIQUE: After the intravenous administration of 10.38 mCi Tc 99m Sestamibi - Cardiolite resting S PECT images acquired 45 minutes post injection. The patient received 0.4mg Lexiscan, 24.4 mCi Tc 99m Sestamibi - Stress images obtained [address] injection FINDINGS: Review of stress and rest SPECT images demonstrates no distinct perfusion abnormality. Gated analysi s shows normal wall motion with an estimated left ventricular ejection fraction of 81 %. IMPRESSION: No scintigraphic evidence for reversible ischemia. Consider echocardiographic correlation for elevate d ejection fraction.
[2018-10-20 16:51] LABS: Glucose,Whole Blood 145 mg/dL (75-99)
[2018-10-20 20:04] LABS: Glucose,Whole Blood 161 mg/dL (75-99)
[2018-10-20] MEDS: INSULIN DETEMIR (LEVEMIR) 100 UNIT/ML SYR SQ SCH (20:30)
[2018-10-20] MEDS: IBUPROFEN 600 MG TAB PO SCH (20:30)
[2018-10-20] MEDS: TEMAZEPAM 30 MG CAP PO SCH (20:31)
[2018-10-20] MEDS: SODIUM CHLORIDE 0.9% 1,000 ML IV SCH (20:32)
[2018-10-21] MEDS: NITROGLYCERIN OINT 1 INCH/GM PACKET TOPICAL SCH ×2 (05:32→11:03)
[2018-10-21 06:46] LABS: Glucose,Whole Blood 127 mg/dL (75-99)
[2018-10-21 07:17] LABS: Basophils % (A) 1 %; Eosinophils # (A) 0.1 k/uL (0-0.7); Eosinophils % (A) 2 %; HCT 44.6 % (34.0-46.0); HGB 14.1 gm/dL (11.4-16.0); Lymphocytes # (A) 1.6 k/uL (1.0-4.8); Lymphocytes % (A) 37 %; MCH 27.9 pg (25.0-35.0); MCHC 31.7 g/dL (31.0-37.0); Mean Platelet Volume 8.2; Monocytes # (A) 0.4 k/uL (0-1.0); Monocytes % (A) 9 %; Neutrophils % (A) 48 %; Platelet Count 151 k/uL (150-450); RBC 5.06 m/uL (3.80-5.40); RDW 13.5 % (11.5-15.5); WBC 4.3 k/uL (3.8-10.6)
[2018-10-21] MEDS ORDERED: PANTOPRAZOLE 40 MG TABLET PO SCH (07:30)
[2018-10-21 07:31] VITALS: TEMP 97.7
[2018-10-21 07:34] LABS: Albumin 3.5 g/dL (3.5-5.0); Calcium 9.2 mg/dL (8.4-10.2); Potassium 4.2 mmol/L (3.5-5.1); Total Bilirubin 0.6 mg/dL (0.2-1.3); Total Protein 6.2 g/dL (6.3-8.2)
[2018-10-21] MEDS: INSULIN ASPART (NovoLOG) 100 UNIT/ML VIAL SQ SCH ×2 (08:54→12:37)
[2018-10-21] MEDS: VITAMIN E (DL,TOCOPHERYL ACET) 400 UNIT CAP PO SCH (09:03)
[2018-10-21] MEDS: METOPROLOL SUCCINATE (ER) 50 MG TAB.ER.24H PO SCH (09:04)
[2018-10-21] MEDS: CHOLECALCIFEROL 1,000 UNIT TAB PO SCH (09:04)
[2018-10-21] MEDS: ASPIRIN 81 MG PO SCH ×2 (09:04→10:47)
--- NOTE | 2018-10-21 10:05 | P.CNPUL ---
History of Present Illness Consult date: 10/21/18 Requesting physician: Umesh Boston Reason for consult: dyspnea Chief complaint: Dyspnea, related to exacerbation of seasonal ALLERGIES, and mild bronchitis History of present illness: This is a 77-year-old white female patient of Dr. 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 Boland in the pulmonary clinic. She presented to the hospital on 10/19/2018 with complaints of worsening exertional dyspnea, dry cough, and some nonspecific chest discomfort, chest x-ray was reviewed, and showed some linear density in the right lower lung field consistent with subsegmental atelectasis, and slight elevation of the right hemidiaphragm. Focal pneumonias, no heart failure. CT angios chest was completed and showed no evidence of focal pulmonary embolism, it did show some enlarged pretracheal lymph nodes of uncertain significance, and some scarring and atelectasis in the right lung base. EKG showed a sinus tachycardia with nonspecific ST and T-wave abnorma lity, cardiogram was completed, and showed some mild MR, no pulmonary hypertension, diastolic dysfunction. Patient was evaluated by cardiology, she underwent cardiac workup, Lexiscan stress test was performed and was negative. Lab work was negative for any leukocytosis, white blood cell count is 4.6, hemoglobin is 15.4, d-dimer was slightly elevated at 1.96, lower extremity Dopplers were negative for DVT, electrolytes were unremarkable with exception of chloride which was mildly elevated, admission labs revealed BUN of 26 and creatinine of 1.11. Which improved with IV hydration, as were negative 3, BNP was within normal limits at 30. Patient was cleared for discharge by cardiology, and we were asked to see the patient in consultation for pulmonary evaluation. During our evaluation patient is awake and alert, in no acute distress, sitting up in bed, on room air, denies any shortness of breath, no cough, no congestion, lung sounds are clear to auscultation. Or chills. Vital signs are stable, she attributes her symptoms to stopping of her Adelita, and exacerbation of seasonal ALLERGIES, with the stuffy nose, itching eyes and sneezing. Denied any fever or chills. Hoping to go home today. Review of Systems All systems: negative Constitutional: Denies chills, Denies fever Eyes: denies blurred vision, denies pain Ears, nose, mouth and throat: Reports nasal congestion, Reports nasal discharge, Denies headache, Denies sore throat Cardiovascular: Reports chest pain, Reports shortness of breath Respiratory: Reports dyspnea, Denies cough Gastrointestinal: Denies abdominal pain, Denies diarrhea, Denies nausea, Denies vomiting Genitourinary: Denies dysuria, Denies hematuria Musculoskeletal: Denies myalgias Integumentary: Denies pruritus, Denies rash Neurological: Denies numbness, Denies weakness Psychiatric: Denies anxiety, Denies depression Endocrine: Denies fatigue, Denies weight change Past Medical History Past Medical History: Diabetes Mellitus, Hypertension, Musculoskeletal Disorder, Pneumonia, Skin Disorder Additional Past Medical History / Comment(s): MINOR Hiatal Hernia. HX Shingles. CHRONIC BACK PAIN. DIVERTICULITIS W/ PERFORATION 08/23/16, had COLOSTOMY was reversed; POST-OP PNEUMONIA, PARLYZED DIAPHRAGM. SKIN DRY, ITCHING. History of Any Multi-Drug Resistant Organisms: None Reported Past Surgical History: Back Surgery, Bowel Resection, Heart Catheterization Additional Past Surgical History / Comment(s): Mult Back Surgeries-Back, Neck Fusions. Epidural Spinal INJ. Levi Cataracts. LAPAROSCOPY, MORGAN'S PROC, COLOSTOMY 08/23/16. REPAIR PARALYZED DIAPHRAGM 11/14/16. reversal of colostomy in february,. neck surgery 11-11-17 done in [place] Past Anesthesia/Blood Transfusion Reactions: Previous Problems w/ Anesthesia Additional Past Anesthesia/Blood Transfusion Reaction / Comment(s): Stopped breathing POST-OP R/T ALLERGY TO PAIN RX, "over medicated" - had to get narcan. Past Psychological History: Anxiety Additional Psychological History / Comment(s): OCC R/T HEALTH CONCERNS Smoking Status: Former smoker Past Alcohol Use History: None Reported Additional Past Alcohol Use History / Comment(s): Started smoking at age 17, Smoked 1 pp week, quit 1990 Past Drug Use History: None Reported - Past Family History Brother(s) Family Medical History: Cancer Medications and Allergies Home Medications Medication Instructions Recorded Confirmed Type Aspirin 81 mg PO DAILY 11/20/13 10/19/18 History Cholecalciferol [Vitamin D3 (25 1,000 unit PO DAILY 03/19/15 10/19/18 History Mcg = 1000 Iu)] Temazepam [Restoril] 30 mg PO HS 09/20/16 10/19/18 History Insulin Glargine,Hum.rec.anlog 15 units SQ HS 02/05/17 10/19/18 History [Toujeo Solostar] Ibuprofen [Motrin] 600 mg PO HS 06/09/17 10/19/18 History Insulin Lispro [humaLOG Kwikpen] See Protocol SQ ACHS 06/09/17 10/19/18 History Metoprolol Succinate [Toprol XL] 50 mg PO DAILY 06/09/17 10/19/18 History Vitamin E (Dl,Tocopheryl Acet) 400 unit PO DAILY 10/19/18 10/19/18 History [Vitamin E] Allergies Allergy/AdvReac Type Severity Reaction Status Date / Time meperidine HCl [From Demerol] Allergy Severe Anaphylaxis Verified 10/19/18 22:37 shellfish derived [Shellfish] Allergy Severe Anaphylaxis Verified 10/19/18 22:37 morphine Allergy Intermediate SEVERE Verified 10/19/18 22:37 ITCHING, HARD TO BREATH cefuroxime axetil Allergy Unknown Verified 10/19/18 22:37 [From Ceftin] codeine Allergy Abdominal Verified 10/19/18 22:37 Pain, DYSPNEA erythromycin base Allergy Nausea Verified 10/19/18 22:37 [From E-Mycin] fentanyl Allergy FELT Verified 10/19/18 22:37 DRUGGED FOR LONG TIME hydrocodone bitartrate Allergy Abdominal Verified 10/19/18 22:37 [From Lortab] Pain, DYSPNEA lisinopril Allergy Anxiety, Verified 10/19/18 22:37 CAN'T FUNCTION lorazepam [From Ativan] Allergy DILUSIONS Verified 10/19/18 22:37 milk Allergy Diarrhea Verified 10/19/18 22:37 oxycodone HCl [From Percocet] Allergy DYSPNEA, Verified 10/19/18 22:37 ITCHING Physical Exam Vitals: Vital Signs Temp Pulse Resp BP BP Pulse Ox 10/21/18 09:08 96 10/21/18 07:20 97.7 F 72 18 122/69 94 L 10/21/18 04:00 98.0 F 85 18 122/69 94 L 10/21/18 03:21 18 10/20/18 23:48 18 10/20/18 23:30 97.6 F 81 18 135/74 94 L 10/20/18 19:52 18 10/20/18 19:45 97.9 F 81 18 133/79 95 10/20/18 16:31 97 10/20/18 15:48 97.7 F 78 18 137/81 97 10/20/18 11:45 97.5 F L 96 18 159/88 94 L Intake and Output 10/20/18 10/21/18 10/21/18 22:59 06:59 14:59 Intake Total 240 240 Balance 240 240 Intake: Oral 240 240 Other: Voiding Method Toilet Toilet Toilet # Voids 1 2 GENERAL EXAM: Alert, pleasant, 77-year-old white female on room air sats of 94%, comfortable in no apparent distress. HEAD: Normocephalic/atraumatic. EYES: Normal reaction of pupils, equal size. Conjunctiva pink, sclera white. NOSE: Clear with pink turbinates. THROAT: No erythema or exudates. NECK: No masses, no JVD, no thyroid enlargement, no adenopathy. CHEST: No chest wall deformity. Symmetrical expansion. LUNGS: Equal air entry with no crackles, wheeze, rhonchi or dullness. CVS: Regular rate and rhythm, normal S1 and S2, no gallops, no murmurs, no rubs ABDOMEN: Soft, nontender. No hepatosplenomegaly, normal bowel sounds, no guarding or rigidity. EXTREMITIES: No clubbing, no edema, no cyanosis, 2+ pulses and upper and lower extremities. MUSCULOSKELETAL: Muscle strength and tone normal. SPINE: No scoliosis or deformity SKIN: No rashes CENTRAL NERVOUS SYSTEM: Alert and oriented -3. No focal deficits, tone is normal in all 4 extremities. PSYCHIATRIC: Alert and oriented -3. Appropriate affect. Intact judgment and insight. Results - Laboratory Findings CBC and BMP: 10/21/18 06:50 10/21/18 06:50 PT/INR, D-dimer PT 9.8 sec (9.0-12.0) 10/19/18 16:25 INR 0.9 (<1.2) 10/19/18 16:25 D-Dimer 1.96 mg/L FEU (<0.60) H 10/19/18 16:25 Abnormal lab findings: Abnormal Labs 10/19/18 10/19/18 10/19/18 16:25 16:25 16:25 RBC 5.42 H Hct 46.6 H Plt Count APTT D-Dimer 1.96 H Chloride 110 H Carbon Dioxide BUN 26 H Creatinine 1.11 H Glucose 185 H POC Glucose (mg/dL) Total Protein Triglycerides HDL Cholesterol 10/19/18 10/20/18 10/20/18 22:35 02:00 05:47 RBC Hct Plt Count 136 L APTT D-Dimer Chloride Carbon Dioxide BUN Creatinine Glucose POC Glucose (mg/dL) 191 H Total Protein Triglycerides 179 H HDL Cholesterol 31 L 10/20/18 10/20/18 10/20/18 05:47 05:47 06:45 RBC Hct Plt Count APTT 60.9 H D-Dimer Chloride 113 H Carbon Dioxide 21 L BUN 28 H Creatinine Glucose 140 H POC Glucose (mg/dL) 130 H Total Protein Triglycerides HDL Cholesterol 10/20/18 10/20/18 10/20/18 11:48 16:44 19:59 RBC Hct Plt Count APTT D-Dimer Chloride Carbon Dioxide BUN Creatinine Glucose POC Glucose (mg/dL) 146 H 145 H 161 H Total Protein Triglycerides HDL Cholesterol 10/21/18 10/21/18 06:42 06:50 RBC Hct Plt Count APTT D-Dimer Chloride 109 H Carbon Dioxide BUN 22 H Creatinine Glucose 126 H POC Glucose (mg/dL) 127 H Total Protein 6.2 L Triglycerides HDL Cholesterol - Diagnostic Findings Chest x-ray: report reviewed, image reviewed CT scan - chest: report reviewed, image reviewed Additional studies: EKG, stress test results, echocardiogram, lower extremity Dopplers reviewed Assessment and Plan Plan: Assessment: #1. Dyspnea, likely related to exacerbation of seasonal ALLERGIES, and mild bronchitis, as x-ray and CT angios chest showed atelectasis in the right lower lung, no focal infiltrates or evidence of heart failure #2. Chest discomfort, and a cardiac evaluation thus far has been negative, negative stress test, echocardiogram revealed diastolic dysfunction, no significant valve abnormality, troponins were negative 3, proBNP was within normal limits. CTA chest was negative for evidence of PE #3. Elevated d-dimer, and CTA chest was negative for PE, and lower extremity Dopplers were negative for DVT #4. Severe COPD, with underlying FEV1 of 67% of predicted not oxygen dependent at baseline #5. Chronic elevation of the right hemidiaphragm, paralysis, status post surgical plication #6. No specific pretracheal adenopathy, will be followed on outpatient basis #7. Hypertension #8. Diabetes mellitus type 2 #9. Former smoker Plan: Patient is calm and comfortable, no distress, no shortness of breath, lung s ounds are clear, no cough or congestion, no fever or chills, she is on room air, no complaints of chest pain or shortness of breath. We advised her to keep taking her Adelita for seasonal ALLERGIES. Increase activity as tolerated, she stable for discharge home today. She has an appointment with Dr. Boland in one month, and she was told to keep that appointment as she starts feeling worse. I performed a history & physical examination of the patient and discussed their management with my nurse practitioner, Marcelle Sheikh. I reviewed the nurse practitioner's note and agree with the documented findings and plan of care. Lung sounds are positive for clear breath sounds. The findings and the impression was discussed with the patient. I attest to the documentation by the nurse practitioner. Time with Patient: Greater than 30
[2018-10-21 11:32] VITALS: BP 131/81; PULSE 76
[2018-10-21 11:56] LABS: Glucose,Whole Blood 143 mg/dL (75-99)
--- NOTE | 2018-10-21 12:16 | P.DS ---
Providers Date of admission: 10/19/18 19:56 Expected date of discharge: 10/21/18 Attending physician: Umesh Boston Consults: 10/19/18 19:56 Consult Physician Urgent Consulting Provider: Nicholas Hull Consult Reason/Comments: Exertional dyspnea, angina Do you want consulting provider notified?: Yes 10/20/18 12:45 Consult Physician Routine Consulting Provider: Omid Wong Consult Reason/Comments: increased SOB Do you want consulting provider notified?: Yes Primary care physician: [facility] Course: Discharge diagnosis 1. Intermittent Shortness of breath. Chest x-ray completed showing mild subsegmental atelectasis in the right side. Normal heart. Mild chronic elevated right diaphragm no change. D-dimer elevated at 1.96. CTA completed showing no evidence for pulmonary embolism. Enlarged pretracheal lymph node of uncertain significance. There is some scarring and atelectasis remaining at the right lung base. 2-D echo completed and reviewed per cardiology. Lexiscan stress test completed showing no evidence for reversible ischemia. Per pulmonary likely related to exacerbation of seasonal ALLERGIES and mild bronchi tis. Patient to resume ALLERGY medications at home 2. Diabetes mellitus type 2. Home meds resumed 3. Essential Hypertension 4. History of pneumonia 5. History of chronic back pain 6. History of diverticulitis with perforation in August 2016 7. Generalized anxiety 8. Left leg pain. Will order venous Doppler to rule out DVT. Venous Doppler completed showing no evidence for DVT 9. No specific pretracheal adenopathy. Patient was evaluated upon services. Patient will be followed up outpatient basis. Patient does have follow-up appointment with pulmonary services in one month Hospital course This is a 77-year-old female patient presented to the ER with complaints of shortness of breath. Patient reports his this has been intermittently occurring over the last couple months. Patient reports this does come and go. Patient reports that the shortness of breath is much worse with exertion. Patient denies any chest pain but does complain of an aching back. Patient also reports a dry cough. Patient denies fever or recent illness. Patient does have a past medical history of diabetes mellitus, hypertension, musculoskeletal disorder, pneumonia, back surgery, ex-smoker, colostomy with reversal in February 2017 and anxiety. Chest x-ray completed showing mild subsegmental atelectasis in the right side. Normal heart. Mild chronic elevated right diaphragm no change. D- dimer elevated at 1.96. CTA of the chest completed showing no evidence of pulmonary embolism. Enlarged pretracheal lymph node of uncertain significance. There is some scarring and atelectasis remaining at the right lung base. Troponins negative 2. EKG showing sinus tachycardia. Nonspecific ST and T- wave abnormality. Patient started on heparin drip cardiology services have been consulted. Patient also complaining about left lower extremity cramping and pain. Will order venous Doppler to rule out DVT. 2-D echo has been ordered per cardiology services. At this time patient is still complaining of intermittent shortness of breath with occasional black pain. Patient denies chest pain. Denies nausea vomiting or diarrhea. Patient denies any urinary burning or frequency. On 10/21/2018 patient is alert and oriented 3. Patient feels much improved and feels ready to go home. Patient did have CTA which was negative for PE. Bilateral venous Doppler negative for DVT. Troponins negative 2. LexiScan stress test completed showing no evidence of reversible ischemia. Patient was eval by cardiology and pulmonary services and cleared for discharge. Patient to follow-up outpatient with pulmonary and cardiology services. Patient to resume ALLERGY medication. At this time patient denies chest pain or shortness of breath. Patient denies nausea vomiting or diarrhea. Patient denies any urinary burning or frequency. I performed an examination of the patient and discussed their management with the Nurse Practitioner. I have reviewed the Nurse Practitioner's notes and agree with the documented findings and plan of care Patient Condition at Discharge: Stable Plan - Discharge Summary Discharge Rx Participant: No New Discharge Prescriptions: Continue Aspirin 81 mg PO DAILY Cholecalciferol [Vitamin D3 (25 Mcg = 1000 Iu)] 1,000 unit PO DAILY Temazepam [Restoril] 30 mg PO HS Insulin Glargine,Hum.rec.anlog [Toujeo Solostar] 15 units SQ HS Ibuprofen [Motrin] 600 mg PO HS Insulin Lispro [humaLOG Kwikpen] See Protocol SQ ACHS Metoprolol Succinate [Toprol XL] 50 mg PO DAILY Vitamin E (Dl,Tocopheryl Acet) [Vitamin E] 400 unit PO DAILY Discharge Medication List Aspirin 81 mg PO DAILY 11/20/13 [History] Cholecalciferol [Vitamin D3 (25 Mcg = 1000 Iu)] 1,000 unit PO DAILY 03/19/15 [History] Temazepam [Restoril] 30 mg PO HS 09/20/16 [History] Insulin Glargine,Hum.rec.anlog [Toujeo Solostar] 15 units SQ HS 02/05/17 [History] Ibuprofen [Motrin] 600 mg PO HS 06/09/17 [History] Insulin Lispro [humaLOG Kwikpen] See Protocol SQ ACHS 06/09/17 [History] Metoprolol Succinate [Toprol XL] 50 mg PO DAILY 06/09/17 [History] Vitamin E (Dl,Tocopheryl Acet) [Vitamin E] 400 unit PO DAILY 10/19/18 [History] Follow up Appointment(s)/Referral(s): Harjinder Murray MD [STAFF PHYSICIAN] - 11/09/18 2:00 pm Umesh Boston MD [Primary Care Provider] - 1-2 days Frederic Bowen MD [STAFF PHYSICIAN] - 3 Weeks Activity/Diet/Wound Care/Special Instructions: Activity as tolerated Diet heart healthy Discharge Disposition: HOME SELF-CARE
--- NOTE | 2018-10-22 14:12 | EST ---
EXERCISE STRESS DATE OF SERVICE: 10/20/2018 AGE: 77 SEX: Female HT: 4'11" WT: 160 pounds PROTOCOL: Lexiscan Cardiolite STAGE: DURATION OF EXERCISE: HEART RATE REST: 91 BLOOD PRESSURE REST: 161/91 MAXIMUM HEART RATE ACHIEVED: 100 MAXIMUM BLOOD PRESSURE: 132/64 85% MPHR: 100% MPHR: METS: INDICATIONS: CLINICAL INFORMATION: Lexiscan nuclear study was performed. Resting EKG shows normal sinus rhythm with normal IL interval and QRS duration and normal ST-T waves. The peak heart rate of 100 was achieved. Maximum blood pressure of 132/64 mmHg was noted. No ST-segment depression suggestive of ischemia is noted. The results of the nuclear study will be reported by the radiologist. BELINDA / IJN: [id number] /
== END 2018-10-21 14:45 | disposition home or self-care (01) ==
LOC: EC 14:56 → 1SOBS 19:56
PROVIDERS: ADMIT Internal Medicine; ATTEND Internal Medicine
DX: R06.02 Shortness of breath (principal); R07.89 Other chest pain; J98.11 Atelectasis; J44.9 Chronic obstructive pulmonary disease, unspecified; J30.2 Other seasonal allergic rhinitis; R79.89 Other specified abnormal findings of blood chemistry; I10 Essential (primary) hypertension; E11.9 Type 2 diabetes mellitus without complications; F41.1 Generalized anxiety disorder; J98.6 Disorders of diaphragm; M54.9 Dorsalgia, unspecified; M79.605 Pain in left leg; E66.9 Obesity, unspecified; Z68.32 Body mass index [BMI] 32.0-32.9, adult; R00.0 Tachycardia, unspecified; L85.3 Xerosis cutis; R59.0 Localized enlarged lymph nodes; M62.9 Disorder of muscle, unspecified; K57.90 Diverticulosis of intestine, part unspecified, without perforation or abscess without bleeding; Z79.82 Long term (current) use of aspirin; Z79.1 Long term (current) use of non-steroidal anti-inflammatories (NSAID); Z79.4 Long term (current) use of insulin; Z79.899 Other long term (current) drug therapy; Z88.1 Allergy status to other antibiotic agents; Z91.011 Allergy to milk products; Z88.5 Allergy status to narcotic agent; Z91.013 Allergy to seafood; Z88.8 Allergy status to other drugs, medicaments and biological substances; Z87.01 Personal history of pneumonia (recurrent); Z87.891 Personal history of nicotine dependence; G89.29 Other chronic pain; Z86.19 Personal history of other infectious and parasitic diseases; Z98.42 Cataract extraction status, left eye; Z98.41 Cataract extraction status, right eye; Z98.1 Arthrodesis status; Z80.9 Family history of malignant neoplasm, unspecified
CPT/HCPCS: 96376; 96361; 96365; 99285; 36415; 94760 ×2; 93005; 93017; 93306; 85379; 83880; 80061; 80053 ×3; 83735; 84484 ×2; 85025 ×3; 85610; 85730 ×2; 87040; 71046; 93970; 71275; 78452; G0378 ×3; A9500; J1644 ×2; J2785; Q9967

== ENCOUNTER → 2019-04-20 | Outpatient (CLI) | payer MEDICARE ==
--- NOTE | 2019-04-20 12:38 | CT ---
EXAMINATION TYPE: CT abdomen pelvis w con DATE OF EXAM: 04/20/2019 COMPARISON: Prior CT 01/08/2018 HISTORY: General abdominal pain, Abdominal wall hernia CT DLP: 1009.10 mGycm Automated exposure control for dose reduction was used. TECHNIQUE: Helical acquisition of images from the lung bases through the pelvis have been completed. CONTRAST: Performed with Oral Contrast and with IV Contrast, patient injected with 100 ml mL of Isovue 300. FINDINGS: There is some thickening of the gastric antrum which is indeterminate, correlate to exclude gastritis. Anterior abdominal wall shows a [place] hernia anterior to the stomach contains fat as on prior. Smaller component is present more inferiorly, suspect there is scar present at this level. Some increased attenuation is present within the subcutaneous fat. Right inguinal hernia contains fat . LUNG BASES: No significant change is appreciated. Is no change suspected to the elevated right hemidi aphragm AORTA: Atheromatous changes are present LIVER/GB: Multiple low dense foci within the liver are again seen likely representing cysts PANCREAS: No significant abnormality is seen. SPLEEN: No significant abnormality is seen. ADRENALS: No significant abnormality is seen. KIDNEYS: Cortical cyst associated with the posterior aspect of the left kidney is again noted. REPRODUCTIVE ORGANS: Not seen BOWEL: Postop change noted to the rectosigmoid colon, the appendix is normal. FREE AIR: No Free Air visible. ASCITES: None visible. PELVIC ADENOPATHY: None visualized. RETROPERITONEAL ADENOPATHY: No Retroperitoneal Adenopathy visible. URINARY BLADDER: No significant abnormality is seen. OSSEOUS STRUCTURES: Postop changes are noted to the lumbar spine. Old trauma noted to the inferior p ubic ramus on the right is stable. Degenerative disc changes are present in the lumbar spine. IMPRESSION: FINDINGS SIMILAR TO PRIOR EXAM. CORRELATE TO EXCLUDE GASTRITIS. ANTERIOR ABDOMINAL WALL HERNIA SHOWS A SIMILAR APPEARANCE, THERE ARE POSTOP CHANGES.
== END | disposition home or self-care (01) ==
LOC: RADCTMAIN 10:29
PROVIDERS: ATTEND Internal Medicine
DX: K43.9 Ventral hernia without obstruction or gangrene (principal); R10.84 Generalized abdominal pain
CPT/HCPCS: 82565; 84520; 74177; 36415; Q9967

== ENCOUNTER → 2019-05-11 | Outpatient (CLI) | payer MEDICARE ==
--- NOTE | 2019-05-11 12:47 | XR ---
EXAMINATION TYPE: XR cervical spine limited DATE OF EXAM: 05/11/2019 COMPARISON: NONE HISTORY: Pain TECHNIQUE: 3 views submitted FINDINGS: There is postsurgical scar changes extending from C3 through the lower cervical spine. Fusi on of C4 through the lower cervical spine noted. Alignment similar to the previous MRI of 09/21/2017. There may be a slight anterolisthesis of C7 relative to T1. This is similar to prior MRI. Odontoid vi ew limited. Prevertebral soft tissue structures within normal limits. IMPRESSION: Stable postoperative changes
== END ==
LOC: RADXRMAIN 11:32
PROVIDERS: ATTEND Neurological Surgery
DX: M54.2 Cervicalgia (principal); Z98.1 Arthrodesis status; Z98.890 Other specified postprocedural states
CPT/HCPCS: 72040

== ENCOUNTER → 2019-05-27 | Outpatient (CLI) | payer MEDICARE ==
--- NOTE | 2019-05-27 10:48 | FL ---
Fluoroscopy-sniff test INDICATION: Pain COMPARISON: Chest x-ray 05/23/2019 FINDINGS: Fluoroscopy time: 34 seconds. Images obtained: 2. Real-time observation was performed. With quiet breathing other appears to be normal motion of the di aphragms although the range of excursion on the right is diminished compared to the left. The right d iaphragm is elevated in relation to the left. With forceful sniffing paradoxical motion was elicited at the right diaphragm with normal motion on t he left. IMPRESSIONS: 1. Paradoxical motion with sniffing. 2. Chronic elevation of the right diaphragm
== END ==
LOC: RADFLMAIN 10:16
PROVIDERS: ATTEND Internal Medicine
DX: R93.89 Abnormal findings on diagnostic imaging of other specified body structures (principal)
CPT/HCPCS: 76000

== ENCOUNTER → 2019-06-23 | Outpatient (CLI) | payer MEDICARE ==
--- NOTE | 2019-06-23 10:07 | US ---
EXAMINATION TYPE: US abdomen complete DATE OF EXAM: 06/23/2019 COMPARISON: US 06/09/2017, CT 04/20/2019 CLINICAL HISTORY: R10.84 abdominal pain, R22.2Localized swelling, ma. EXAM MEASUREMENTS: Liver Length: 14.2 cm Gallbladder Wall: 0.2 cm CBD: 0.6 cm Spleen: 8.7 cm Right Kidney: 9.5 x 3.3 x 3.5 cm Left Kidney: 8.5 x 4.6 x 4.1 cm Pancreas: Obscured by bowel gas, visualized portions wnl Liver: Multiple cystic areas visualized, largest left lobe measuring 1.3 x 1.3 x 1.7 cm Gallbladder: wnl Evidence for sonographic Collado's sign: No CBD: wnl Spleen: wnl Right Kidney: No hydronephrosis or masses seen Left Kidney: No hydronephrosis. Cystic area visualized measuring 2.1 x 2.2 x 2.4 cm Upper IVC: wnl Abd Aorta: Atherosclerotic plaque visualized, no sonographic evidence of AAA The intrahepatic portion of the IVC and proximal abdominal aorta are within normal limits. There is no evidence of cholelithiasis. Common bile duct is unremarkable. The visualized portions of the bermeo creas are homogenous. The spleen is unremarkable. Kidneys are symmetric and free of hydronephrosis. IMPRESSION: 1. No sonographic evidence of cholelithiasis nor acute cholecystitis. 2. Incidentally noted multiple hepatic cysts and left renal cyst. 3. Obscuration of the pancreas by overlying bowel gas.
--- NOTE | 2019-06-23 10:08 | US ---
EXAMINATION TYPE: US abdomen limited DATE OF EXAM: 06/23/2019 COMPARISON: CT 04/20/2019 CLINICAL HISTORY: R10.84 abdominal pain, R22.2Localized swelling, ma. Palpable areas in RUQ and LUQ p er patient TECHNIQUE/FINDINGS: Targeted ultrasound was performed of the right chest utilizing grayscale and colo r imaging of the palpable abnormality. In the RUQ, at the patient's area of palpable lump, there is a hyperechoic area visualized measuring 0.5 x 0.6 x 0.4 cm, possible lipoma IMPRESSION: Hyperechoic 0.6 cm lipomatous lesion. These are typically benign, however if there is in terval clinical growth repeat ultrasound recommended to assess for true interval growth. The setting of true interval growth MRI with contrast is recommended to exclude neoplastic lipomatous lesion.
== END | disposition home or self-care (01) ==
LOC: RADUSWWP 08:45
PROVIDERS: ATTEND Internal Medicine
DX: R93.5 Abnormal findings on diagnostic imaging of other abdominal regions, including retroperitoneum (principal)
CPT/HCPCS: 76700; 76705

== ENCOUNTER → 2019-07-29 | Day surgery (SDC) | payer MEDICARE ==
[2019-07-26 12:27] VITALS: BMI 31.8
[~2019-07-29] MED LIST changes: -CLINDAMYCIN 900 MG in DEXTROSE 5% IN WATER 50 ML IVPB ONE; -DEXAMETHASONE SOD PHOSPHATE 10 MG/ML 1 ML VIAL IV ONE; -GENTAMICIN 280 MG in SODIUM CHLORIDE 0.9% 100 ML IVPB ONE; +LIDOCAINE 1% 20 ML VIAL (10MG/ML) FOR IV START INTRADERMA PRN; +LIDOCAINE 1% 20 ML VIAL (10MG/ML) FOR IV START SQ ONE; -MIDAZOLAM 2 MG/2 ML VIAL IV PRN; -ONDANSETRON 4 MG/2 ML VIAL IVP ONE; +PROPOFOL 10 MG/ML 20 ML VIAL IV ONE; -SCOPOLAMINE 1.5MG/72HR PATCH TRANSDERM ONE
[2019-07-29 13:01] LABS: Glucose,Whole Blood 185 mg/dL (75-99)
[2019-07-29 13:02] VITALS: RESP 16; TEMP 97.4
--- NOTE | 2019-07-29 13:59 | P.PCN ---
Date of Procedure: 07/29/19 Procedure(s) Performed: BRIEF HISTORY: Patient is a 78-year-old, pleasant, female, scheduled for an upper endoscopy as a part of evaluation of epigastric pain and long-standing history of GERD. She is on Nexium 40 mg daily and doing well. She recently had a CT of abdomen and pelvis as part of evaluation of abdominal pain and was noted to have thickening of the stomach.. PROCEDURE PERFORMED: Esophagogastroduodenoscopy with biopsy. PREOPERATIVE DIAGNOSIS: And gastric pain/abnormal CAT scan of abdomen showing thickened stomach. IV sedation per anesthesia. PROCEDURE: After informed consent was obtained, the patient was brought into the endoscopy unit. IV sedation was administered by Anesthesia under continuous monitoring. Initially the Olympus GIF-140 video endoscope was inserted into the mouth. Esophagus intubated without any difficulty. It was gradually advanced into the stomach and duodenum and carefully examined. The bulb and the second part of the duodenum appeared normal. The scope at this time was withdrawn to the stomach, adequately insufflated with air, and upon careful examination, mucosa of the antrum had scattered erosions and gastritis and biopsies were done from this area. Mucosa of the, body, cardia and the fundus appeared normal. The scope was then withdrawn into the esophagus. The GE junction was located at 39 cm from the incisors. The esophagus appeared normal. There were no erosions or ulcerations seen and the patient tolerated the procedure well. IMPRESSION: 1. Antral erosive gastritis. 2. Normal-appearing esophagus with no evidence of esophagitis or peptic ulcer disease. RECOMMENDATIONS: The findings of this examination were discussed with the susy irvin as well as her family. She was advised to follow with the biopsy results She will continue with Nexium 20 mg daily and follow antireflux measures..
[2019-07-29 14:21] VITALS: BP 123/62; PULSE 68
== END ==
LOC: ORWHC2ENDO 12:32
PROVIDERS: ATTEND Internal Medicine Gastroenterology
DX: K29.50 Unspecified chronic gastritis without bleeding (principal); K21.9 Gastro-esophageal reflux disease without esophagitis; I10 Essential (primary) hypertension; E11.9 Type 2 diabetes mellitus without complications; Z87.891 Personal history of nicotine dependence; Z79.82 Long term (current) use of aspirin; Z79.4 Long term (current) use of insulin; Z79.899 Other long term (current) drug therapy; Z91.011 Allergy to milk products; Z91.013 Allergy to seafood; Z88.1 Allergy status to other antibiotic agents; Z88.5 Allergy status to narcotic agent; Z88.8 Allergy status to other drugs, medicaments and biological substances; Z90.49 Acquired absence of other specified parts of digestive tract
CPT/HCPCS: 43239; J2704; 88305; 88342

== ENCOUNTER 2019-12-15 12:33 | Observation (INO) | payer MEDICARE ==
[2019-12-15] MEDS ORDERED: HYDROmorphone 1 MG/ML 1 ML SYRINGE IVP STA (13:04)
--- NOTE | 2019-12-15 13:08 | ED ---
Chest Pain HPI - General Chief Complaint: Chest Pain Stated Complaint: SOB, L Side Back Pain Time Seen by Provider: 12/15/19 12:44 Source: patient, RN notes reviewed Mode of arrival: ambulatory Limitations: no limitations - History of Present Illness Initial Comments: This is a 78-year-old female history of a right diaphragmatic paralysis as well as a history of colostomy in the past who 3 days go ahead a chemical stress test of which she does not know the results yet who presents with complaints of 2 days of left-sided posterior back pain sharp in nature for the most part unrelenting she states was 10/10 severity currently is 8/10 doesn't seem to get any worse with moving deep breathing or any other activity. She denies any trauma. No cough fevers chills sweats no palpitations she does state that some of the workup was done due to some exertional dyspnea and tachycardia. She denies any rash MD Complaint: chest pain - Related Data Home Medications Medication Instructions Recorded Confirmed Aspirin 81 mg PO DAILY 11/20/13 12/15/19 Cholecalciferol [Vitamin D3 (25 2,000 unit PO DAILY 03/19/15 12/15/19 Mcg = 1000 Iu)] Temazepam [Restoril] 30 mg PO HS 09/20/16 12/15/19 Insulin Glargine,Hum.rec.anlog 30 units SQ HS 02/05/17 12/15/19 [Toujeo Solostar] Ibuprofen [Motrin] 600 mg PO HS 06/09/17 12/15/19 Insulin Lispro [humaLOG Kwikpen] See Protocol SQ ACHS 06/09/17 12/15/19 Metoprolol Succinate [Toprol XL] 50 mg PO DAILY 06/09/17 12/15/19 Esomeprazole Magnesium [NexIUM] 20 mg PO DAILY 07/26/19 12/15/19 Allergies Allergy/AdvReac Type Severity Reaction Status Date / Time meperidine HCl [From Demerol] Allergy Severe Anaphylaxis Verified 12/15/19 13:34 shellfish derived [Shellfish] Allergy Severe Anaphylaxis Verified 12/15/19 13:34 morphine Allergy Intermediate SEVERE Verified 12/15/19 13:34 ITCHING, HARD TO BREATH cefuroxime axetil Allergy Unknown Verified 12/15/19 13:34 [From Ceftin] codeine Allergy Abdominal Verified 12/15/19 13:34 Pain, DYSPNEA erythromycin base Allergy Nausea Verified 12/15/19 13:34 [From E-Mycin] fentanyl Allergy FELT Verified 12/15/19 13:34 DRUGGED FOR LONG TIME hydrocodone bitartrate Allergy Abdominal Verified 12/15/19 13:34 [From Lortab] Pain, DYSPNEA Influenza Virus Vaccines Allergy Unknown Verified 12/15/19 13:34 lisinopril Allergy Anxiety, Verified 12/15/19 13:34 CAN'T FUNCTION lorazepam [From Ativan] Allergy DILUSIONS Verified 12/15/19 13:34 milk Allergy Diarrhea Verified 12/15/19 13:34 oxycodone HCl [From Percocet] Allergy DYSPNEA, Verified 12/15/19 13:34 ITCHING Review of Systems ROS Statement: Those systems with pertinent positive or pertinent negative responses have been documented in the HPI. ROS Other: All systems not noted in ROS Statement are negative. EKG Findings - EKG Results: EKG: interpreted by ERMD, sinus rhythm (Sinus rhythm of 96. Interval 146 QRS 72 QT/QTC 362/[address]-T wave configuration this does compared to an EKG dated 10/19/18) Past Medical History Past Medical History: Diabetes Mellitus, Hypertension, Musculoskeletal Disorder, Pneumonia, Skin Disorder Additional Past Medical History / Comment(s): MINOR Hiatal Hernia. HX Shingles. CHRONIC BACK PAIN. DIVERTICULITIS W/ PERFORATION 08/23/16, had COLOSTOMY was reversed; POST-OP PNEUMONIA, PARLYZED DIAPHRAGM. History of Any Multi-Drug Resistant Organisms: None Reported Past Surgical History: Back Surgery, Bowel Resection, Heart Catheterization Additional Past Surgical History / Comment(s): Mult Back Surgeries-Back, Neck Fusions. Epidural Spinal INJ. Levi Cataracts. LAPAROSCOPY, YOGESH'S PROC, COLOSTOMY 08/23/16. REPAIR PARALYZED DIAPHRAGM 11/14/16. reversal of colostomy in february,. neck surgery 11-11-17 done in [place]. Past Anesthesia/Blood Transfusion Reactions: Previous Problems w/ Anesthesia Additional Past Anesthesia/Blood Transfusion Reaction / Comment(s): Stopped breathing POST-OP R/T ALLERGY TO PAIN RX, "over medicated" - had to get narcan. Past Psychological History: Anxiety Smoking Status: Former smoker Past Alcohol Use History: None Reported Past Drug Use History: None Reported - Past Family History Brother(s) Family Medical History: Cancer Additional Family Medical History / Comment(s): Colon General Exam - General Exam Comments Initial Comments: This is a well-developed well-nourished awake alert oriented 3 female Limitations: no limitations General appearance: alert, in no apparent distress Head exam: Present: atraumatic, normocephalic, normal inspection Eye exam: Present: normal appearance, PERRL, EOMI. Absent: scleral icterus, conjunctival injection, periorbital swelling ENT exam: Present: normal exam, mucous membranes moist Neck exam: Present: normal inspection, full ROM, other (No stridor JVD or bruits). Absent: tenderness, meningismus, lymphadenopathy Respiratory exam: Present: normal lung sounds bilaterally, chest wall tenderness (Tenderness palpation over the left mid chest wall intercostal region no step- off no crepitation no rash noted.). Absent: respiratory distress, wheezes, rales, rhonchi, stridor Cardiovascular Exam: Present: regular rate, normal rhythm, normal heart sounds. Absent: systolic murmur, diastolic murmur, rubs, gallop, clicks GI/Abdominal exam: Present: soft, normal bowel sounds. Absent: distended, tenderness, guarding, rebound, rigid Extremities exam: Present: normal inspection, full ROM, normal capillary refill. Absent: tenderness, pedal edema, joint swelling, calf tenderness Back exam: Present: normal inspection Neurological exam: Present: alert, oriented X3, CN II-XII intact Psychiatric exam: Present: normal affect, normal mood Skin exam: Present: warm, dry, intact, normal color. Absent: rash Course Vital Signs 12/15/19 12/15/19 12:35 13:48 Temperature 98 F Pulse Rate 103 H Respiratory 18 16 Rate Blood Pressure 147/90 O2 Sat by Pulse 96 Oximetry Chest Pain MDM - MDM I did discuss findings with patient and her as well as with Dr. Bowen. Patient's x-rays are negative CAT scan negative for acute findings. Patient does present with atypical pain and is concerning for an anginal equivalent. Patient be admitted with consultation by cardiology. The patient has seen Dr. Murray in the past Disposition Clinical Impression: Chest pain Disposition: ADMITTED IP TO THIS HOSP Condition: Fair Referrals: Umesh Boston MD [Primary Care Provider] - 1-2 days
[2019-12-15] MEDS ORDERED: ONDANSETRON 4 MG/2 ML VIAL IVP STA (13:18)
[2019-12-15 13:43] LABS: Basophils % (A) 0 %; Eosinophils # (A) 0.1 k/uL (0-0.7); Eosinophils % (A) 2 %; HCT 45.9 % (34.0-46.0); HGB 15.1 gm/dL (11.4-16.0); Hypochromasia Slight; Lymphocytes # (A) 0.9 k/uL (1.0-4.8); Lymphocytes % (A) 24 %; MCHC 32.8 g/dL (31.0-37.0); MCV 88.5 fL (80.0-100.0); Mean Platelet Volume 8.8; Monocytes # (A) 0.3 k/uL (0-1.0); Monocytes % (A) 8 %; Neutrophils # (A) 2.6 k/uL (1.3-7.7); Neutrophils % (A) 65 %; Platelet Count 187 k/uL (150-450); RBC 5.19 m/uL (3.80-5.40); RDW 14.1 % (11.5-15.5)
[2019-12-15 13:53] LABS: Albumin 4.2 g/dL (3.5-5.0); Calcium 9.5 mg/dL (8.4-10.2); Magnesium 1.9 mg/dL (1.6-2.3); Potassium 4.7 mmol/L (3.5-5.1); Total Bilirubin 0.6 mg/dL (0.2-1.3); Total Protein 7.2 g/dL (6.3-8.2)
[2019-12-15 13:59] LABS: Appearance,Urine Cloudy (Clear); Bacteria,Urine Occasional /hpf; Bilirubin,Urine Negative (Negative); Blood,Urine Trace (Negative); Color,Urine Yellow; Glucose,Urine (UA) 4+ (Negative); Ketones,Urine Negative (Negative); Leukocyte Esterase,Urine Large (Negative); Mucus,Urine Rare /hpf; Nitrite,Urine Negative (Negative); PH, Urine 5.5 (5.0-8.0); Protein,Urine Negative (Negative); RBC,Urine 2 /hpf (0-5); Specific Gravity,Urine 1.013 (1.001-1.035); Squamous Epithelial Cell,Urine 8 /hpf (0-4); Urobilinogen,Urine <2.0 mg/dL (<2.0); WBC,Urine 8 /hpf (0-5)
[2019-12-15 14:07] LABS: INR 0.9 (<1.2); Partial Thromboplastin Time 21.9 sec (22.0-30.0); Prothrombin Time 9.6 sec (9.0-12.0)
[2019-12-15 14:25] LABS: D-Dimer 2.05 mg/L FEU (<0.60)
--- NOTE | 2019-12-15 14:37 | XR ---
EXAMINATION TYPE: XR chest 2V DATE OF EXAM: 12/15/2019 COMPARISON: 10/19/2018 HISTORY: Shortness of breath TECHNIQUE: Frontal and lateral views of the chest are obtained. FINDINGS: Scattered senescent parenchymal changes noted. Hyperinflation compatible with COPD. No evidence for infiltrate. No evidence for atelectasis. Chronic elevation. Heart size is stable. Mediastinal structures are stable and grossly unremarkable. No evidence for hilar prominence. Degenerative changes dorsal spine. IMPRESSION: 1. No evidence for acute pulmonary disease.
--- NOTE | 2019-12-15 15:12 | CT ---
EXAMINATION TYPE: CT angio chest DATE OF EXAM: 12/15/2019 COMPARISON: 10/19/18 HISTORY: BACK AND LEFT CHEST PAIN CT DLP: 450 mGycm CONTRAST: CT chest with contrast and 3D reconstruction with MIP imaging is performed with IV Contrast, patient injected with 80 mL of Isovue 370. Contrast-enhanced CT of the chest was performed through the course of the pulmonary arteries with skye g and mediastinal window settings submitted. 3D reconstruction with MIP imaging was also performed. PULMONARY ARTERIES: The pulmonary arteries and their major tributaries are patent. I do not see gerber dence for sizable filling defect to suggest pulmonary embolic process. LUNGS: The lungs are clear and free of infiltrate. No evidence for atelectasis. No pulmonary nodule or mass is detected. No pleural effusion. MEDIASTINUM: Thoracic aorta is of normal caliber,however, evaluation is limited given timing of the contrast bolus. If there is concern for thoracic aortic pathology consider BYRON. Correlate clinicall y . The heart is not enlarged. No evidence for mediastinal mass. No mediastinal lymph nodes greater than 1cm. HILAR STRUCTURES: No evidence for mass. No hilar lymph nodes greater than 1 cm. UPPER ABDOMEN: No significant abnormality is seen. IMPRESSION: 1. No evidence for Pulmonary embolism at this time.
[2019-12-15] MEDS ORDERED: NITROGLYCERIN SL TABS 0.4 MG TAB SUBLINGUAL PRN (16:08)
[2019-12-15] MEDS ORDERED: HEPARIN SODIUM,PORCINE 5,000 UNIT/ML 1 ML VIAL IV ONE (16:08)
[2019-12-15] MEDS ORDERED: HEPARIN SOD,PORK IN 0.45% NACL 25,000 UNIT in 0.45% NACL 1 250ML.BAG IV SCH (16:15)
[2019-12-15] MEDS ORDERED: HEPARIN SODIUM,PORCINE 5,000 UNIT/ML 1 ML VIAL IV STA (16:41)
[2019-12-15] MEDS: SODIUM CHLORIDE 0.9% 1,000 ML IV SCH (16:57)
[2019-12-15] MEDS ORDERED: TEMAZEPAM 30 MG CAP PO SCH (21:00)
[2019-12-15] MEDS: INSULIN DETEMIR (LEVEMIR) 100 UNIT/ML SYR SQ SCH (21:42)
[2019-12-15] MEDS: IBUPROFEN 600 MG TAB PO SCH (23:12)
[2019-12-15] MEDS: TEMAZEPAM 15 MG CAP PO SCH (23:13)
[2019-12-16] MEDS: HYDROmorphone 0.5 MG/0.5 ML SYRINGE IVP PRN ×2 (01:31→06:32)
[2019-12-16 06:20] LABS: Glucose,Whole Blood 85 mg/dL (75-99)
[2019-12-16] MEDS: PANTOPRAZOLE 40 MG TABLET PO SCH (06:32)
[2019-12-16 07:53] LABS: Cholesterol 183 mg/dL (<200); Triglycerides 215 mg/dL (<150)
[2019-12-16 07:54] LABS: HDL Cholesterol 28 mg/dL (40-60); LDL Cholesterol,Calculated 112 mg/dL (0-99)
[2019-12-16] MEDS: ASPIRIN 325 MG TAB PO SCH (09:08)
[2019-12-16] MEDS: CHOLECALCIFEROL 1,000 UNIT TAB PO SCH (09:09)
[2019-12-16] MEDS: METOPROLOL SUCCINATE (ER) 50 MG TAB.ER.24H PO SCH (09:09)
[2019-12-16 11:42] LABS: Glucose,Whole Blood 123 mg/dL (75-99)
--- NOTE | 2019-12-16 11:55 | P.CRDCN ---
History of Present Illness Consult date: 12/16/19 Requesting physician: Umesh Boston Consult reason: chest pain Chief complaint: Back pain History of present illness: This is a 79-year-old female with history of diabetes, hyperlipidemia, hypertension, COPD, follows with Dr. Murray in the office. He presents to the hospital with symptoms of left upper back pain, she describes it as a constant pain that has been there for a few days now. It does worsen with exertion or movement of her arms. Patient recently underwent a stress test in the office earlier this week which was negative for any reversible ischemia. She also had an echocardiogram with Doppler study performed in the office which revealed a normal left ventricular systolic function. Chest x-ray on presentation here did not reveal any acute disease, CTA of the chest negative for a pulmonary embolism, EKG on presentation here showed a normal sinus rhythm with nonspecific ST-T wave changes in the anterior leads. Blood pressure 106/40 with a heart rate in the 70s, respirations 18, temperature 97.8. White blood cell count 4.0, platelet count 187 hemoglobin 15.1, d-dimer 2.0. Sodium 137, potassium 4.7, BUN 16, creatinine 0.7. Troponins negative 3. Magnesium 1.9. Cholesterol 183, LDL 112, HDL 28, triglycerides 2:15. Positive UTI. At the time of my exami nation this morning, patient continues to complain of discomfort in her left upper back area, when she moves a certain way it does make the pain worse. Appears to be musculoskeletal in nature. Past Medical History Past Medical History: Diabetes Mellitus, Hypertension, Musculoskeletal Disorder, Pneumonia, Skin Disorder Additional Past Medical History / Comment(s): MINOR Hiatal Hernia. HX Shingles. CHRONIC BACK PAIN. DIVERTICULITIS W/ PERFORATION 08/23/16, had COLOSTOMY was reversed; POST-OP PNEUMONIA, PARLYZED DIAPHRAGM. History of Any Multi-Drug Resistant Organisms: None Reported Past Surgical History: Back Surgery, Bowel Resection, Heart Catheterization Additional Past Surgical History / Comment(s): Mult Back Surgeries-Back, Neck Fusions. Epidural Spinal INJ. Levi Cataracts. LAPAROSCOPY, YOGESH'S PROC, COLOSTOMY 08/23/16. REPAIR PARALYZED DIAPHRAGM 11/14/16. reversal of colostomy in february,. neck surgery 11-11-17 done in [place]. Past Anesthesia/Blood Transfusion Reactions: Previous Problems w/ Anesthesia Additional Past Anesthesia/Blood Transfusion Reaction / Comment(s): Stopped theodore athing POST-OP R/T ALLERGY TO PAIN RX, "over medicated" - had to get narcan. Past Psychological History: Anxiety Additional Psychological History / Comment(s): OCC R/T HEALTH CONCERNS Smoking Status: Former smoker Past Alcohol Use History: None Reported Additional Past Alcohol Use History / Comment(s): Started smoking at age 17, Smoked 1 pp week, quit 1990 Past Drug Use History: None Reported - Past Family History Brother(s) Family Medical History: Cancer Additional Family Medical History / Comment(s): Colon Medications and Allergies Home Medications Medication Instructions Recorded Confirmed Type Aspirin 81 mg PO DAILY 11/20/13 12/15/19 History Cholecalciferol [Vitamin D3 (25 2,000 unit PO DAILY 03/19/15 12/15/19 History Mcg = 1000 Iu)] Temazepam [Restoril] 30 mg PO HS 09/20/16 12/15/19 History Insulin Glargine,Hum.rec.anlog 30 units SQ HS 02/05/17 12/15/19 History [Toujeo Solostar] Ibuprofen [Motrin] 600 mg PO HS 06/09/17 12/15/19 History Insulin Lispro [humaLOG Kwikpen] See Protocol SQ [facility] 06/09/17 12/15/19 History Metoprolol Succinate [Toprol XL] 50 mg PO DAILY 06/09/17 12/15/19 History Esomeprazole Magnesium [NexIUM] 20 mg PO DAILY 07/26/19 12/15/19 History Allergies Allergy/AdvReac Type Severity Reaction Status Date / Time meperidine HCl [From Demerol] Allergy Severe Anaphylaxis Verified 12/15/19 13:34 shellfish derived [Shellfish] Allergy Severe Anaphylaxis Verified 12/15/19 13:34 morphine Allergy Intermediate SEVERE Verified 12/15/19 13:34 ITCHING, HARD TO BREATH cefuroxime axetil Allergy Unknown Verified 12/15/19 13:34 [From Ceftin] codeine Allergy Abdominal Verified 12/15/19 13:34 Pain, DYSPNEA erythromycin base Allergy Nausea Verified 12/15/19 13:34 [From E-Mycin] fentanyl Allergy FELT Verified 12/15/19 13:34 DRUGGED FOR LONG TIME hydrocodone bitartrate Allergy Abdominal Verified 12/15/19 13:34 [From Lortab] Pain, DYSPNEA Influenza Virus Vaccines Allergy Unknown Verified 12/15/19 13:34 lisinopril Allergy Anxiety, Verified 12/15/19 13:34 CAN'T FUNCTION lorazepam [From Ativan] Allergy DILUSIONS Verified 12/15/19 13:34 milk Allergy Diarrhea Verified 12/15/19 13:34 oxycodone HCl [From Percocet] Allergy DYSPNEA, Verified 12/15/19 13:34 ITCHING Physical Exam Vitals: Vital Signs Temp Pulse Pulse Resp BP BP Pulse Ox 12/16/19 11:40 69 16 12/16/19 11:37 97.8 F 69 16 118/66 93 L 12/16/19 08:00 98.1 F 70 18 109/61 92 L 12/16/19 04:00 97.8 F 71 18 106/48 93 L 12/15/19 23:36 97.8 F 70 18 163/83 93 L 12/15/19 20:00 97.9 F 67 18 144/75 97 12/15/19 17:15 95 16 147/83 99 12/15/19 13:48 16 12/15/19 12:35 98 F 103 H 18 147/90 96 Intake and Output 12/15/19 12/16/19 12/16/19 22:59 06:59 14:59 Other: Voiding Method Toilet Toilet Toilet # Voids 1 Weight 73.482 kg 73.7 kg PHYSICAL EXAMINATION: GENERAL: 79-year-old female in no acute distress at the time of my examination HEENT: Head is atraumatic, normocephalic. Pupils equal, round. Sclera anicteric. Conjunctiva are clear. Mucous membranes of the mouth are moist. Neck is supple. There is no elevated jugular venous pressure. No carotid bruit is heard. HEART EXAMINATION: Heart S1, S2 normal. No murmur or gallop heard. CHEST EXAMINATION: Lungs are clear to auscultation and precussion. No chest wall tenderness is noted on palpation or with deep breathing. ABDOMEN: Soft, nontender. Bowel sounds are heard. No organomegaly noted. EXTREMITIES: 2+ peripheral pulses with no evidence of peripheral edema and no calf tenderness noted. NEUROLOGIC patient is awake, alert and oriented 3 . . Results 12/15/19 13:31 12/15/19 13:31 Cardiac Enzymes 12/15/19 12/15/19 12/15/19 Range/Units 13:31 13:31 17:19 AST 26 (14-36) U/L Troponin I <0.012 <0.012 (0.000-0.034) ng/mL 12/15/19 Range/Units 20:14 AST (14-36) U/L Troponin I <0.012 (0.000-0.034) ng/mL Coagulation 12/15/19 12/15/19 12/16/19 Range/Units 13:31 23:30 06:37 PT 9.6 (9.0-12.0) sec APTT 21.9 L 64.2 H 61.5 H (22.0-30.0) sec Lipids 12/16/19 Range/Units 06:37 Triglycerides 215 H (<150) mg/dL Cholesterol 183 (<200) mg/dL HDL Cholesterol 28 L (40-60) mg/dL CBC 12/15/19 Range/Units 13:31 WBC 4.0 (3.8-10.6) k/uL RBC 5.19 (3.80-5.40) m/uL Hgb 15.1 (11.4-16.0) gm/dL Hct 45.9 (34.0-46.0) % Plt Count 187 (150-450) k/uL Comprehensive Metabolic Panel 12/15/19 Range/Units 13:31 Sodium 137 (137-145) mmol/L Potassium 4.7 (3.5-5.1) mmol/L Chloride 105 (98-107) mmol/L Carbon Dioxide 22 (22-30) mmol/L BUN 16 (7-17) mg/dL Creatinine 0.75 (0.52-1.04) mg/dL Glucose 256 H (74-99) mg/dL Calcium 9.5 (8.4-10.2) mg/dL AST 26 (14-36) U/L ALT 16 (4-34) U/L Alkaline Phosphatase 83 (38-126) U/L Total Protein 7.2 (6.3-8.2) g/dL Albumin 4.2 (3.5-5.0) g/dL Current Medications Generic Name Dose Route Start Last Admin Trade Name Freq PRN Reason Stop Dose Admin Aspirin 325 mg 12/16/19 09:00 12/16/19 09:08 Aspirin PO 325 mg DAILY ARELY Administration Cholecalciferol 2,000 unit 12/16/19 09:00 12/16/19 09:09 Vitamin D3 (25 Mcg = 1000 Iu) PO 2,000 unit DAILY ARELY Administration Hydromorphone HCl 0.5 mg 12/16/19 01:20 12/16/19 06:32 Dilaudid IVP 0.5 mg Q4HR PRN Administration Pain Sodium Chloride 1,000 mls @ 20 mls/hr 12/15/19 16:15 12/15/19 16:57 Saline 0.9% IV 20 mls/hr .Q24H ARELY Administration Heparin Sodium/Sodium Chloride 250 mls @ 8.818 mls/hr 12/15/19 16:15 12/15/19 16:59 25,000 unit/ Sodium Chloride IV 12 units/kg/hr .Q24H ARELY 8.818 mls/hr Administration Protocol 12 UNITS/KG/HR Ibuprofen 600 mg 12/15/19 21:00 12/15/19 23:12 Motrin PO 600 mg HS ARELY Administration Insulin Detemir 30 unit 12/15/19 21:00 12/15/19 21:42 Levemir SQ 30 unit HS ARELY Administration Metoprolol Succinate 50 mg 12/16/19 09:00 12/16/19 09:09 Toprol Xl PO 50 mg DAILY ARELY Administration Nitroglycerin 0.4 mg 12/15/19 16:08 Nitrostat SUBLINGUAL Q5M PRN Chest Pain Pantoprazole Sodium 40 mg 12/16/19 07:30 12/16/19 06:32 Protonix PO Not Given DAILY@0730 [facility] Temazepam 30 mg 12/15/19 21:21 12/15/19 23:13 Restoril PO 30 mg HS ARELY Administration Intake and Output 12/15/19 12/16/19 12/16/19 22:59 06:59 14:59 Other: Voiding Method Toilet Toilet Toilet # Voids 1 Weight 73.482 kg 73.7 kg 12/15/19 13:31 12/15/19 13:31 EKG Interpretations (text) EKG shows a normal sinus rhythm with nonspecific ST-T wave changes. Assessment and Plan Plan: Assessment and plan #1 symptoms of left upper back pain, atypical for acute coronary syndrome. Troponins negative 3. EKG shows normal sinus rhythm with nonspecific ST-T wave changes. #2 diabetes #3 hyperlipidemia #4 hypertension #5 COPD Plan patient underwent a stress test in the office earlier this week which was negative for any reversible ischemia. Echo performed to weeks ago revealed a normal left ventricular systolic function. Patient's pain is very atypical in nature. From our perspective she may be able to be discharged home today to follow-up with Dr. Murray in the office post discharge. DNP note has been reviewed, I agree with a documented findings and plan of care. Patient was seen and examined.
[2019-12-16] MEDS: SODIUM CHLORIDE 0.9% 1,000 ML IV SCH (13:43)
[2019-12-16 14:09] LABS: Glucose,Whole Blood 160 mg/dL (75-99)
--- NOTE | 2019-12-16 15:09 | P.HPIM ---
History of Present Illness H&P Date: 12/16/19 Nisha Calix, is a 79-year-old female who presented to [facility] emergency room with a chief complaint of upper back pain radiating to the chest, she was evaluated in emergency room first EKG revealed evidence of normal sinus rhythm with nonspecific ST and T wave abnormalities, d-dimer was elevated at 2.05, patient was started on IV heparin, CT angiogram of the chest was done and did not reveal any evidence of pulmonary embolism, patient was admitted to telemetry floor cardiology consultation was requested. Patient has a known history of hypertension, hyperlipidemia, COPD, diabetes mellitus, history of diverticulosis, and previous history of pneumonia. On review of system patient was complaining of upper back pain, with radiation to the front of her chest and to her shoulders, there is no fever or chills no headache or dizziness no cough, no nausea or vomiting no abdominal pain no diarrhea no burning with urination no frequency or urgency no hematuria Past Medical History Past Medical History: Diabetes Mellitus, Hypertension, Musculoskeletal Disorder, Pneumonia, Skin Disorder Additional Past Medical History / Comment(s): MINOR Hiatal Hernia. HX Shingles. CHRONIC BACK PAIN. DIVERTICULITIS W/ PERFORATION 08/23/16, had COLOSTOMY was reversed; POST-OP PNEUMONIA, PARLYZED DIAPHRAGM. History of Any Multi-Drug Resistant Organisms: None Reported Past Surgical History: Back Surgery, Bowel Resection, Heart Catheterization Additional Past Surgical History / Comment(s): Mult Back Surgeries-Back, Neck Fusions. Epidural Spinal INJ. Levi Cataracts. LAPAROSCOPY, YOGESH'S PROC, COLOSTOMY 08/23/16. REPAIR PARALYZED DIAPHRAGM 11/14/16. reversal of colostomy in february,. neck surgery 11-11-17 done in [facility]. Past Anesthesia/Blood Transfusion Reactions: Previous Problems w/ Anesthesia Additional Past Anesthesia/Blood Transfusion Reaction / Comment(s): Stopped breathing POST-OP R/T ALLERGY TO PAIN RX, "over medicated" - had to get narcan. Past Psychological History: Anxiety Additional Psychological History / Comment(s): OCC R/T HEALTH CONCERNS Smoking Status: Former smoker Past Alcohol Use History: None Reported Additional Past Alcohol Use History / Comment(s): Started smoking at age 17, Smoked 1 pp week, quit 1990 Past Drug Use History: None Reported - Past Family History Brother(s) Family Medical History: Cancer Additional Family Medical History / Comment(s): Colon Medications and Allergies Home Medications Medication Instructions Recorded Confirmed Type Aspirin 81 mg PO DAILY 11/20/13 12/15/19 History Cholecalciferol [Vitamin D3 (25 2,000 unit PO DAILY 03/19/15 12/15/19 History Mcg = 1000 Iu)] Temazepam [Restoril] 30 mg PO HS 09/20/16 12/15/19 History Insulin Glargine,Hum.rec.anlog 30 units SQ HS 02/05/17 12/15/19 History [Toujeo Solostar] Ibuprofen [Motrin] 600 mg PO HS 06/09/17 12/15/19 History Insulin Lispro [humaLOG Kwikpen] See Protocol SQ ACHS 06/09/17 12/15/19 History Metoprolol Succinate [Toprol XL] 50 mg PO DAILY 06/09/17 12/15/19 History Esomeprazole Magnesium [NexIUM] 20 mg PO DAILY 07/26/19 12/15/19 History Allergies Allergy/AdvReac Type Severity Reaction Status Date / Time meperidine HCl [From Demerol] Allergy Severe Anaphylaxis Verified 12/15/19 13:34 shellfish derived [Shellfish] Allergy Severe Anaphylaxis Verified 12/15/19 13:34 morphine Allergy Intermediate SEVERE Verified 12/15/19 13:34 ITCHING, HARD TO BREATH cefuroxime axetil Allergy Unknown Verified 12/15/19 13:34 [From Ceftin] codeine Allergy Abdominal Verified 12/15/19 13:34 Pain, DYSPNEA erythromycin base Allergy Nausea Verified 12/15/19 13:34 [From E-Mycin] fentanyl Allergy FELT Verified 12/15/19 13:34 DRUGGED FOR LONG TIME hydrocodone bitartrate Allergy Abdominal Verified 12/15/19 13:34 [From Lortab] Pain, DYSPNEA Influenza Virus Vaccines Allergy Unknown Verified 12/15/19 13:34 lisinopril Allergy Anxiety, Verified 12/15/19 13:34 CAN'T FUNCTION lorazepam [From Ativan] Allergy DILUSIONS Verified 12/15/19 13:34 milk Allergy Diarrhea Verified 12/15/19 13:34 oxycodone HCl [From Percocet] Allergy DYSPNEA, Verified 12/15/19 13:34 ITCHING Physical Exam Vitals: Vital Signs Temp Pulse Pulse Resp BP BP Pulse Ox 12/16/19 08:00 98.1 F 70 18 109/61 92 L 12/16/19 04:00 97.8 F 71 18 106/48 93 L 12/15/19 23:36 97.8 F 70 18 163/83 93 L 12/15/19 20:00 97.9 F 67 18 144/75 97 12/15/19 17:15 95 16 147/83 99 12/15/19 13:48 16 12/15/19 12:35 98 F 103 H 18 147/90 96 Intake and Output 12/15/19 12/16/19 12/16/19 22:59 06:59 14:59 Other: Voiding Method Toilet Toilet Weight 73.482 kg 73.7 kg In general patient is alert and oriented 3 in no apparent distress HEENT head normocephalic and atraumatic Neck is supple no JVD no goiter no lymphadenopathy Chest exam reveals a few scattered rhonchi no wheezing Cardiac exam reveals regular heart sounds S1 and S2 no gallops no murmurs Abdomen is soft nontender no organomegaly with normal bowel sounds Extremity exam reveals minimal edema no cyanosis or clubbing Neurological examination reveals no gross focal deficit Results CBC & Chem 7: 12/15/19 13:31 12/15/19 13:31 Labs: Abnormal Lab Results - Last 24 Hours (Table) 12/15/19 12/15/19 12/15/19 Range/Units 13:31 13:31 13:31 Lymphocytes # 0.9 L (1.0-4.8) k/uL APTT 21.9 L (22.0-30.0) sec D-Dimer 2.05 H (<0.60) mg/L FEU Glucose (74-99) mg/dL Triglycerides (<150) mg/dL LDL Cholesterol, Calc (0-99) mg/dL HDL Cholesterol (40-60) mg/dL Urine Appearance Cloudy H (Clear) Urine Glucose (UA) 4+ H (Negative) Urine Blood Trace H (Negative) Ur Leukocyte Esterase Large H (Negative) Urine WBC 8 H (0-5) /hpf Ur Squamous Epith Cells 8 H (0-4) /hpf Urine Bacteria Occasional H (None) /hpf Urine Mucus Rare H (None) /hpf 12/15/19 12/15/19 12/16/19 Range/Units 13:31 23:30 06:37 Lymphocytes # (1.0-4.8) k/uL APTT 64.2 H (22.0-30.0) sec D-Dimer (<0.60) mg/L FEU Glucose 256 H (74-99) mg/dL Triglycerides 215 H (<150) mg/dL LDL Cholesterol, Calc 112 H (0-99) mg/dL HDL Cholesterol 28 L (40-60) mg/dL Urine Appearance (Clear) Urine Glucose (UA) (Negative) Urine Blood (Negative) Ur Leukocyte Esterase (Negative) Urine WBC (0-5) /hpf Ur Squamous Epith Cells (0-4) /hpf Urine Bacteria (None) /hpf Urine Mucus (None) /hpf 12/16/19 Range/Units 06:37 Lymphocytes # (1.0-4.8) k/uL APTT 61.5 H (22.0-30.0) sec D-Dimer (<0.60) mg/L FEU Glucose (74-99) mg/dL Triglycerides (<150) mg/dL LDL Cholesterol, Calc (0-99) mg/dL HDL Cholesterol (40-60) mg/dL Urine Appearance (Clear) Urine Glucose (UA) (Negative) Urine Blood (Negative) Ur Leukocyte Esterase (Negative) Urine WBC (0-5) /hpf Ur Squamous Epith Cells (0-4) /hpf Urine Bacteria (None) /hpf Urine Mucus (None) /hpf Thrombosis Risk Factor Assmnt - Choose All That Apply Any of the Below Risk Factors Present?: No Other Risk Factors: Yes Each Risk Factor Represents 3 Points: Age 75 years or older Other congenital or acquired thrombophilia - If yes, enter type in comment: No Thrombosis Risk Factor Assessment Total Risk Factor Score: 3 Thrombosis Risk Factor Assessment Level: Moderate Risk Assessment and Plan Plan: 1. Episode of upper back pain radiating to the chest, EKG was nonspecific ST and T-wave abnormality, first troponin negative, patient started on IV heparin and admitted to telemetry floor cardiology consultation was requested 2. Elevated d-dimer was negative CT angiogram of the chest for pulmonary embolism 3. Underlying history of insulin-dependent diabetes mellitus 4. Underlying history of hypertension 5. Underlying history of hyperlipidemia 6. Underlying history of chronic back pain 7. Underlying history of vitamin D deficiency At this time patient is admitted to telemetry floor with check serial EKGs and cardiac enzymes Will obtain cardiology consultation Will follow closely during this admission
[2019-12-16] MEDS ORDERED: ACETAMINOPHEN TAB 500 MG TAB PO PRN (16:29)
[2019-12-16 16:31] LABS: Glucose,Whole Blood 150 mg/dL (75-99)
--- NOTE | 2019-12-16 16:32 | P.PN ---
Subjective Progress Note Date: 12/16/19 Nisha Calix, is a 79-year-old female who presented to [facility] emergency room with a chief complaint of upper back pain radiating to the chest, she was evaluated in emergency room first EKG revealed evidence of normal sinus rhythm with nonspecific ST and T wave abnormalities, d-dimer was elevated at 2.05, patient was started on IV heparin, CT angiogram of the chest was done and did not reveal any evidence of pulmonary embolism, patient was admitted to telemetry floor cardiology consultation was requested. Patient has a known history of hypertension, hyperlipidemia, COPD, diabetes mellitus, history of diverticulosis, and previous history of pneumonia. On review of system patient was complaining of upper back pain, with radiation to the front of her chest and to her shoulders, there is no fever or chills no headache or dizziness no cough, no nausea or vomiting no abdominal pain no diarrhea no burning with urination no frequency or urgency no hematuria On 12/16/2019 patient was seen and examined on the medical floor she is alert and oriented 3 in no apparent distress her is no fever or chills no headache or dizziness no chest pain no shortness of breath no cough, no nausea or vomiting no diarrhea no burning with urination no frequency or urgency and no hematuria, patient now is complaining of right upper quadrant abdominal pain radiating to the back at this time will check ultrasound of the abdomen if normal possible discharge to home tomorrow Objective - Vital Signs Vital signs: Vital Signs Temp 97.8 F 12/16/19 11:37 Pulse 69 12/16/19 11:40 Resp 16 12/16/19 11:40 BP 118/66 12/16/19 11:37 Pulse Ox 93 L 12/16/19 11:37 Intake & Output 12/15/19 12/16/19 12/16/19 18:59 06:59 18:59 Intake Total 20 Balance 20 Weight 73.482 kg 73.7 kg Intake: IV 20 Sodium Chloride 0.9% 1, 20 000 ml @ 20 mls/hr IV . Q24H [facility] Rx#:[id number] Other: Voiding Method Toilet Toilet # Voids 1 - Exam In general patient is alert and oriented 3 in no apparent distress HEENT head normocephalic and atraumatic Neck is supple no JVD no goiter no lymphadenopathy Chest exam reveals a few scattered rhonchi no wheezing Cardiac exam reveals regular heart sounds S1 and S2 no gallops no murmurs Abdomen is soft nontender no organomegaly with normal bowel sounds Extremity exam reveals minimal edema no cyanosis or clubbing Neurological examination reveals no gross focal deficit - Labs CBC & Chem 7: 12/15/19 13:31 12/15/19 13:31 Labs: Abnormal Lab Results - Last 24 Hours (Table) 12/15/19 12/15/19 12/16/19 Range/Units 19:51 23:30 06:37 APTT 64.2 H (22.0-30.0) sec POC Glucose (mg/dL) 160 H (75-99) mg/dL Triglycerides 215 H (<150) mg/dL LDL Cholesterol, Calc 112 H (0-99) mg/dL HDL Cholesterol 28 L (40-60) mg/dL 12/16/19 12/16/19 Range/Units 06:37 11:41 APTT 61.5 H (22.0-30.0) sec POC Glucose (mg/dL) 123 H (75-99) mg/dL Triglycerides (<150) mg/dL LDL Cholesterol, Calc (0-99) mg/dL HDL Cholesterol (40-60) mg/dL Assessment and Plan Plan: 1. Episode of upper back pain radiating to the chest, EKG was nonspecific ST and T-wave abnormality, first troponin negative, patient started on IV heparin a nd admitted to telemetry floor cardiology consultation was requested 2. Elevated d-dimer was negative CT angiogram of the chest for pulmonary embolism 3. Underlying history of insulin-dependent diabetes mellitus 4. Underlying history of hypertension 5. Underlying history of hyperlipidemia 6. Underlying history of chronic back pain 7. Underlying history of vitamin D deficiency At this time patient is admitted to telemetry floor with check serial EKGs and cardiac enzymes Will obtain cardiology consultation Will follow closely during this admission
[2019-12-16 20:38] LABS: Glucose,Whole Blood 178 mg/dL (75-99)
[2019-12-16] MEDS: IBUPROFEN 600 MG TAB PO SCH (20:43)
[2019-12-16] MEDS: TEMAZEPAM 15 MG CAP PO SCH (20:44)
[2019-12-16] MEDS: INSULIN DETEMIR (LEVEMIR) 100 UNIT/ML SYR SQ SCH (20:44)
[2019-12-17] MEDS: traMADol 50 MG TAB PO PRN ×2 (02:41→08:19)
[2019-12-17 06:00] LABS: Glucose,Whole Blood 87 mg/dL (75-99)
[2019-12-17] MEDS: PANTOPRAZOLE 40 MG TABLET PO SCH (06:19)
[2019-12-17 06:51] LABS: Basophils % (A) 0 %; Eosinophils # (A) 0.2 k/uL (0-0.7); Eosinophils % (A) 4 %; HCT 42.3 % (34.0-46.0); HGB 13.6 gm/dL (11.4-16.0); Hypochromasia Slight; Lymphocytes # (A) 1.5 k/uL (1.0-4.8); Lymphocytes % (A) 39 %; MCH 28.7 pg (25.0-35.0); MCHC 32.1 g/dL (31.0-37.0); MCV 89.2 fL (80.0-100.0); Mean Platelet Volume 8.7; Monocytes # (A) 0.4 k/uL (0-1.0); Monocytes % (A) 10 %; Neutrophils # (A) 1.7 k/uL (1.3-7.7); Neutrophils % (A) 44 %; Platelet Count 160 k/uL (150-450); RBC 4.75 m/uL (3.80-5.40); WBC 3.9 k/uL (3.8-10.6)
[2019-12-17 07:01] LABS: Albumin 3.4 g/dL (3.5-5.0); Total Bilirubin 0.6 mg/dL (0.2-1.3); Total Protein 6.1 g/dL (6.3-8.2)
--- NOTE | 2019-12-17 07:39 | US ---
EXAMINATION TYPE: US abdomen complete DATE OF EXAM: 12/17/2019 COMPARISON: CLINICAL HISTORY: RUQ pain. Generalized pain. NPO. EXAM MEASUREMENTS: Liver Length: 14.5 cm Gallbladder Wall: 0.1 cm CBD: 0.5 cm Spleen: 9.5 cm Right Kidney: 9.8 x 3.9 x 3.9 cm Left Kidney: 8.9 x 4.2 x 5.0 cm Pancreas: Tail obscured by overlying bowel gas Liver: Limited visualization due to overlying bowel gas. Scanned intercostally. Cystic lesions see n. Largest on right - 1.2 x 1.3 x 0.9 cm. Largest on left- 1.0 x 1.3 x 0.8 cm Gallbladder: wnl Evidence for sonographic Collado's sign: neg CBD: wnl Spleen: wnl Right Kidney: Prominent pyramids Left Kidney: cystic lesion seen - 3.0 x 3.2 x 3.0 cm Upper IVC: wnl Abd Aorta: No AAA visualized The liver is homogenous. The intrahepatic portion of the IVC and proximal abdominal aorta are within normal limits. There is no evidence of cholelithiasis. Common bile duct is unremarkable. The visu alized portions of the pancreas are homogenous. The spleen is unremarkable. Kidneys are symmetric a nd free of hydronephrosis. No solid renal lesions are seen. IMPRESSION: 1. Hepatic and renal cystic changes as noted above.
[2019-12-17] MEDS: METOPROLOL SUCCINATE (ER) 50 MG TAB.ER.24H PO SCH (08:19)
[2019-12-17] MEDS: CHOLECALCIFEROL 1,000 UNIT TAB PO SCH (08:19)
[2019-12-17] MEDS: ASPIRIN 325 MG TAB PO SCH (08:19)
[2019-12-17 08:23] VITALS: BP 117/77; PULSE 71; RESP 18; TEMP 97.7
--- NOTE | 2019-12-17 11:59 | P.DS ---
Providers Date of admission: 12/15/19 16:14 Expected date of discharge: 12/17/19 Attending physician: Umesh Boston Consults: 12/15/19 16:09 Consult Physician Urgent Consulting Provider: Harjinder Murray Consult Reason/Comments: Chest pain Do you want consulting provider notified?: Yes Primary care physician: Umesh [facility] Course: Diagnosis on discharge: 1. Episode of upper back pain radiating to the chest, EKG was nonspecific ST and T-wave abnormality, first troponin negative, patient started on IV heparin and admitted to telemetry floor cardiology consultation was requested, patient had recent cardiac evaluation as outpatient by cardiology office Dr. Murray, including a stress test which was done 1 week ago, no further evaluation was recommended by cardiology at this time. 2. Elevated d-dimer was negative CT angiogram of the chest for pulmonary embolism 3. Underlying history of insulin-dependent diabetes mellitus 4. Underlying history of hypertension 5. Underlying history of hyperlipidemia 6. Underlying history of chronic back pain 7. Underlying history of vitamin D deficiency Hospital course: Nisha Calix, is a 79-year-old female who presented to [facility] emergency room with a chief complaint of upper back pain radiating to the chest, she was evaluated in emergency room first EKG revealed evidence of normal sinus rhythm with nonspecific ST and T wave abnormalities, d-dimer was elevated at 2.05, patient was started on IV heparin, CT angiogram of the chest was done and did not reveal any evidence of pulmonary embolism, patient was admitted to telemetry floor cardiology consultation was requested. Patient has a known history of hypertension, hyperlipidemia, COPD, diabetes mellitus, history of diverticulosis, and previous history of pneumonia. On review of system patient was complaining of upper back pain, with radiation to the front of her chest and to her shoulders, there is no fever or chills no headache or dizziness no cough, no nausea or vomiting no abdominal pain no diarrhea no burning with urination no frequency or urgency no hematuria On 12/16/2019 patient was seen and examined on the medical floor she is alert and oriented 3 in no apparent distress her is no fever or chills no headache or dizziness no chest pain no shortness of breath no cough, no nausea or vomiting no diarrhea no burning with urination no frequency or urgency and no hematuria, patient now is complaining of right upper quadrant abdominal pain radiating to the back at this time will check ultrasound of the abdomen if normal possible discharge to home tomorrow On 12/17/2019 patient was seen and examined on the medical floor she is alert and oriented 3 in no apparent distress there is no fever or chills no headache or dizziness no chest pain no shortness of breath no cough no nausea or vomiting no abdominal pain no diarrhea, no burning was urination no frequency or urgency and no hematuria, myocardial infarction was ruled out, no further cardiac evaluation was recommended by cardiology, right upper quadrant ultrasound was done and did not reveal any significant abnormality related to the gallbladder, patient will be discharged home today, further evaluation as outpatient in regard to the etiology of her upper back pain. Patient Condition at Discharge: Fair Plan - Discharge Summary New Discharge Prescriptions: New traMADol HCl [Ultram] 50 mg PO QID PRN tab PRN Reason: Pain Continue Aspirin 81 mg PO DAILY Cholecalciferol [Vitamin D3 (25 Mcg = 1000 Iu)] 2,000 unit PO DAILY Temazepam [Restoril] 30 mg PO HS Insulin Glargine,Hum.rec.anlog [Toujeo Solostar] 30 units SQ HS Ibuprofen [Motrin] 600 mg PO HS Insulin Lispro [humaLOG Kwikpen] See Protocol SQ ACHS Metoprolol Succinate [Toprol XL] 50 mg PO DAILY Esomeprazole Magnesium [NexIUM] 20 mg PO DAILY Discharge Medication List Aspirin 81 mg PO DAILY 11/20/13 [History] Cholecalciferol [Vitamin D3 (25 Mcg = 1000 Iu)] 2,000 unit PO DAILY 03/19/15 [History] Temazepam [Restoril] 30 mg PO HS 09/20/16 [History] Insulin Glargine,Hum.rec.anlog [Toujeo Solostar] 30 units SQ HS 02/05/17 [History] Ibuprofen [Motrin] 600 mg PO HS 06/09/17 [History] Insulin Lispro [humaLOG Kwikpen] See Protocol SQ ACHS 06/09/17 [History] Metoprolol Succinate [Toprol XL] 50 mg PO DAILY 06/09/17 [History] Esomeprazole Magnesium [NexIUM] 20 mg PO DAILY 07/26/19 [History] traMADol HCl [Ultram] 50 mg PO QID PRN tab 12/17/19 [Rx] Follow up Appointment(s)/Referral(s): Umesh Boston MD [Primary Care Provider] - 1-2 days
[2019-12-17 12:37] LABS: Glucose,Whole Blood 91 mg/dL (75-99)
== END 2019-12-17 13:00 | disposition home or self-care (01) ==
LOC: EC 12:33 → 1SOBS 16:14 → 3SCARD 16:31
PROVIDERS: ADMIT Internal Medicine; ATTEND Internal Medicine
DX: R07.89 Other chest pain (principal); M54.89 Other dorsalgia; G89.29 Other chronic pain; R94.31 Abnormal electrocardiogram [ECG] [EKG]; R79.1 Abnormal coagulation profile; E11.9 Type 2 diabetes mellitus without complications; I10 Essential (primary) hypertension; E78.5 Hyperlipidemia, unspecified; E55.9 Vitamin D deficiency, unspecified; R10.11 Right upper quadrant pain; K44.9 Diaphragmatic hernia without obstruction or gangrene; F41.9 Anxiety disorder, unspecified; J44.9 Chronic obstructive pulmonary disease, unspecified; N39.0 Urinary tract infection, site not specified; Z03.818 Encounter for observation for suspected exposure to other biological agents ruled out; Z79.82 Long term (current) use of aspirin; Z79.899 Other long term (current) drug therapy; Z79.4 Long term (current) use of insulin; Z79.1 Long term (current) use of non-steroidal anti-inflammatories (NSAID); Z88.5 Allergy status to narcotic agent; Z91.013 Allergy to seafood; Z88.1 Allergy status to other antibiotic agents; Z88.7 Allergy status to serum and vaccine; Z88.8 Allergy status to other drugs, medicaments and biological substances; Z91.011 Allergy to milk products; Z87.39 Personal history of other diseases of the musculoskeletal system and connective tissue; Z87.01 Personal history of pneumonia (recurrent); Z87.2 Personal history of diseases of the skin and subcutaneous tissue; Z86.19 Personal history of other infectious and parasitic diseases; Z98.890 Other specified postprocedural states; Z87.19 Personal history of other diseases of the digestive system; Z90.49 Acquired absence of other specified parts of digestive tract; Z98.1 Arthrodesis status; Z98.41 Cataract extraction status, right eye; Z98.42 Cataract extraction status, left eye; Z87.09 Personal history of other diseases of the respiratory system; Z91.89 Other specified personal risk factors, not elsewhere classified; Z87.891 Personal history of nicotine dependence; Z80.0 Family history of malignant neoplasm of digestive organs
CPT/HCPCS: 96376 ×2; 96366 ×2; 93005 ×2; 96365; 96375; 99285; 36415; 85379; 83880; 80061; 80053 ×2; 82550; 83690; 83735; 84484; 85025 ×2; 85610; 85730 ×2; 81001; 71046; 76700; 71275; G0378 ×4; U0003; J1644 ×2; J2405; J1170 ×2; Q9967

== ENCOUNTER → 2019-12-19 | Outpatient (CLI) | payer MEDICARE ==
--- NOTE | 2019-12-19 15:13 | XR ---
EXAMINATION TYPE: XR thoracic spine 2V DATE OF EXAM: 12/19/2019 CLINICAL HISTORY: pain TECHNIQUE: Frontal, lateral, and swimmer's view of thoracic spine are obtained. COMPARISON: None. FINDINGS: Curvature convex to the right. Moderate multilevel degenerative disc space narrowing and sp ondylosis. No paraspinal mass identified. No bony destructive process seen. IMPRESSION: No acute fracture or dislocation is seen in the thoracic spine. ICD 10 NO FRACTURE, INIT IAL EVALUATION
--- NOTE | 2019-12-19 20:18 | XR ---
EXAMINATION TYPE: XR lumbar spine 2 or 3V DATE OF EXAM: 12/19/2019 CLINICAL HISTORY: Intractable back pain. TECHNIQUE: Frontal and lateral images of the lumbar spine are obtained. COMPARISON: X-ray and CT October 29, 2015. FINDINGS: There are 5 lumbar type vertebral bodies redemonstrated. Persistent posterior interpedicul ar rods and screws L3-L4 level with artificial disc material. Stable grade 1 anterolisthesis L3 on L4 . Persistent high dense material L4-L5 level with mild to moderate disc space narrowing. Persistent m ild to moderate disc space narrowing and anterior spurring L5-S1 level. More prominent mild to modera te disc space during L2-L3 level especially posterior aspect. Moderate anterior spurring L3 and L4 ve rtebra. No acute fracture or dislocation. Demineralization. Lower lumbar spine laminectomy defect and spinous process resection redemonstrated. Overlying vascular calcification of aorta. IMPRESSION: As above.
--- NOTE | 2019-12-19 20:21 | XR ---
EXAMINATION TYPE: XR cervical spine limited DATE OF EXAM: 12/19/2019 TECHNIQUE: Frontal, lateral, and open mouth view of the cervical spine are obtained. HISTORY: M54.9 intractable back pain neck pain. COMPARISON: Cervical spine x-ray May 11, 2019 FINDINGS: Osseous structures remain demineralized making evaluation suboptimal. Persistent posterior interpedicular rods and screws transfix C3-T1 levels with ossific fusion of the C4 through the C7 mani tebra are redemonstrated with multilevel spinous process resection. No significant interval change. A lignment stable and straightened. IMPRESSION: As above. No significant interval change.
== END | disposition home or self-care (01) ==
LOC: RADXRMAIN 13:13
PROVIDERS: ATTEND Neurological Surgery
DX: M99.73 Connective tissue and disc stenosis of intervertebral foramina of lumbar region (principal); M43.16 Spondylolisthesis, lumbar region; Z98.890 Other specified postprocedural states; Z98.1 Arthrodesis status; M54.2 Cervicalgia; M54.6 Pain in thoracic spine
CPT/HCPCS: 72040; 72070; 72100

== ENCOUNTER → 2020-01-09 | Outpatient (CLI) | payer MEDICARE ==
--- NOTE | 2020-01-10 08:25 | CT ---
EXAMINATION TYPE: CT cervical spine wo con DATE OF EXAM: 01/09/2020 COMPARISON: None HISTORY: Spinal stenosis, pt c/o achiness and pressure in cervical region. CT DLP: 420.40 mGycm CONTRAST: None CT of the cervical spine is performed in the axial plane at 2 mm thick sections. Reconstructed image s in the coronal, and sagittal plane are reviewed on the computer. No acute fractures are evident. There is straightening of the cervical spine. There is prior fusion of C4-C7. Laminectomies have been performed. There is narrowing of the C2-3 and C3-4 disc spaces. There is loss of the C7-T1 disc space. Vertebral body heights are preserved. No AP spinal canal stenosis is present. Right uncovertebral joint hypertrophy is causing foraminal narrowing at C6-7. Uncovertebral joint hyp ertrophy is contributing to foraminal stenosis C3-4, C4-5, C5-6. This appears greatest on the right at C5-6 bilaterally C4-5 and on the right at C3-4. IMPRESSIONS: 1. Postsurgical changes discussed above. 2. No spinal canal stenosis. 3. Uncovertebral joint hypertrophy is contributing to foraminal stenosis C3-4, C4-5, C5-6, C6-7. Grea test at right C5-6 C3-4 and bilaterally C4-5.
--- NOTE | 2020-01-10 08:34 | CT ---
EXAMINATION TYPE: CT lumbar spine wo con DATE OF EXAM: 01/09/2020 COMPARISON: 10/29/2015 HISTORY: Spinal stenosis, pt c/o pain w/ standing, pain causing SOB. CT DLP: 946.10 mGycm CONTRAST: None TECHNIQUE: CT of the lumbar spine is performed on a spiral scan at 3 mm thick sections. Reconstructed images are performed in the coronal and sagittal planes. FINDINGS: There is a kyphosis centered at L4. More normal lordosis in the upper lumbar spine. Postsurgical rods and pedicle screws are present L3 and L4 4. Disc space narrowing is present L5-S1 posteriorly at L4- 5. Disc spacers present L3-4. Some vacuum phenomenon is present L2-3. T12-L1: No focal disc herniation or significant disc bulge is evident. No spinal canal stenosis or neural foraminal stenosis is present. L1-L2: Mild disc bulging is anterior thecal sac contact. No AP spinal canal stenosis or neural forami nal stenosis is present. Facet degenerative changes are present. L2-L3: Disc bulge has mild anterior thecal sac compression. Facet hypertrophy has posterior lateral t hecal sac compression. Laminectomy is present. AP spinal canal stenosis is not present. There is mode rate bilateral foraminal narrowing. L3-L4: Broad-based disc bulge is present with anterior thecal sac compression. Facet hypertrophy is p resent. Laminectomies been performed. No AP spinal canal stenosis is present. There is severe right a nd moderate left foraminal stenosis. L4-L5: No significant disc bulge is evident. Neural foramen appear patent. No AP spinal canal stenosi s is present. L5-S1: No focal disc herniation or significant disc bulge is evident. No spinal canal stenosis or n eural foraminal stenosis is present. Facet hypertrophy is present. Vertebral alignment appears normal. Note is made of hypodensities within the liver with low Hounsfield units likely related to hepatic cy sts. There is a 3.2 cm cyst measuring 7 Hounsfield units on the posterior lateral left mid kidney. IMPRESSION: Stable postsurgical changes through the lumbar spine. 2. Severe right foraminal stenosis L3-L4. Moderate to severe left L3-4 foraminal narrowing is present . More moderate areas of foraminal narrowing are present bilaterally.
== END | disposition home or self-care (01) ==
LOC: RADCTMAIN 16:33
PROVIDERS: ATTEND Neurological Surgery
DX: M48.02 Spinal stenosis, cervical region (principal); M48.061 Spinal stenosis, lumbar region without neurogenic claudication; M47.812 Spondylosis without myelopathy or radiculopathy, cervical region; Z98.1 Arthrodesis status; Z98.890 Other specified postprocedural states
CPT/HCPCS: 72125; 72131

== ENCOUNTER → 2020-04-13 | Outpatient (CLI) | payer MEDICARE ==
--- NOTE | 2020-04-14 15:47 | XR ---
EXAMINATION TYPE: XR KUB DATE OF EXAM: 04/13/2020 4:54 PM CLINICAL HISTORY: Abdominal pain and hematuria TECHNIQUE: Supine images of the abdomen and pelvis were obtained COMPARISON: 06/09/1979 KUB. FINDINGS: Scattered gas is seen in non-distended small bowel loops. Gas and fecal material is seen in non-distended colon. No abnormal calcification appreciated. Lumbar spine fixation changes. IMPRESSION: Nonspecific bowel gas pattern.
== END | disposition home or self-care (01) ==
LOC: RAD 16:06
PROVIDERS: ATTEND Urology
DX: R14.0 Abdominal distension (gaseous) (principal)
CPT/HCPCS: 74018

== ENCOUNTER → 2020-10-24 | Outpatient (CLI) | payer MEDICARE ==
[2020-10-24 08:22] VITALS: BP 122/83; PULSE 90; RESP 18; TEMP 98.2
--- NOTE | 2020-10-24 09:49 | P.HPOB ---
History of Present Illness H&P Date: 10/24/20 Chief Complaint: The patient is here for her routine gynecologic exam and ma mmogram. This is a 79-year-old 014 with an LMP of 1963. The patient is status post vaginal hysterectomy and later BSO for benign reasons. The patient has been noticing changes with her breasts over the past 2 months. She has noticed bilateral soreness lateral to each breast and this is greater on the right side. She has also noticed that the left breast does not fit properly in her bra and it feels like the left breast has increased in size during the past 2 months. She has had left breast soreness in the vicinity of her previous left breast lumpectomy which was done many years ago for some type of fatty tumor. She denies feeling any discrete masses and also denies nipple discharge. She is otherwise without complaints. Review of Systems She has gained about 15 pounds over the past 3-1/2 years. She denies respiratory, cardiac and G.I. problems. She denies maltreatment or problems with falling. : she denies any significant problems with urinary leakage, but at times has to get to the bathroom right away. Past Medical History Past Medical History: Diabetes Mellitus, Hypertension, Musculoskeletal Disorder, Pneumonia, Skin Disorder Additional Past Medical History / Comment(s): Type 2 diabetes, MINOR Hiatal Hernia. HX Shingles. CHRONIC BACK PAIN. 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 History of Any Multi-Drug Resistant Organisms: None Reported Past Surgical History: Back Surgery, Bowel Resection, Heart Catheterization Additional Past Surgical History / Comment(s): Mult Back Surgeries-Back, Neck Fusions. Epidural Spinal INJ. Levi Cataracts. Laparotomy for ruptured diverticulum, YOGESH'S PROC, COLOSTOMY 08/23/16. REPAIR PARALYZED DIAPHRAGM 11/14/16. reversal of colostomy in february,. neck surgery 11-11-17 done in [place]. Colonoscopy ?date. EGD upper endoscopy 2019 Past Anesthesia/Blood Transfusion Reactions: Previous Problems w/ Anesthesia Additional Past Anesthesia/Blood Transfusion Reaction / Comment(s): Stopped breathing POST-OP R/T ALLERGY TO PAIN RX, "over medicated" - had to get narcan. Past Psychological History: Anxiety Additional Psychological History / Comment(s): OCC R/T HEALTH CONCERNS Smoking Status: Former smoker Past Alcohol Use History: None Reported Additional Past Alcohol Use History / Comment(s): Started smoking at age 17, Smoked 1 pp week, quit 1990 Past Drug Use History: None Reported Additional History: She has been since 1979 but is not sexually active. - Past Family History Brother(s) Family Medical History: Cancer Additional Family Medical History / Comment(s): Colon Maternal Aunt Family Medical History: Cancer Additional Family Medical History / Comment(s): Breast cancer. Medications and Allergies Home Medications Medication Instructions Recorded Confirmed Type Aspirin 81 mg PO DAILY 11/20/13 12/15/19 History Cholecalciferol [Vitamin D3 (25 2,000 unit PO DAILY 03/19/15 12/15/19 History Mcg = 1000 Iu)] Temazepam [Restoril] 30 mg PO HS 09/20/16 12/15/19 History Insulin Glargine,Hum.rec.anlog 30 units SQ HS 02/05/17 12/15/19 History [Toujeo Solostar] Ibuprofen [Motrin] 600 mg PO HS 06/09/17 12/15/19 History Insulin Lispro [humaLOG Kwikpen] See Protocol SQ ACHS 06/09/17 12/15/19 History Metoprolol Succinate [Toprol XL] 50 mg PO DAILY 06/09/17 12/15/19 History Esomeprazole Magnesium [NexIUM] 20 mg PO DAILY 07/26/19 12/15/19 History traMADol HCl [Ultram] 50 mg PO QID PRN tab 12/17/19 Rx Allergies Allergy/AdvReac Type Severity Reaction Status Date / Time meperidine HCl [From Demerol] Allergy Severe Anaphylaxis Verified 12/15/19 13:34 shellfish derived [Shellfish] Allergy Severe Anaphylaxis Verified 12/15/19 13:34 morphine Allergy Intermediate SEVERE Verified 12/15/19 13:34 ITCHING, HARD TO BREATH cefuroxime axetil Allergy Unknown Verified 12/15/19 13:34 [From Ceftin] codeine Allergy Abdominal Verified 12/15/19 13:34 Pain, DYSPNEA erythromycin base Allergy Nausea Verified 12/15/19 13:34 [From E-Mycin] fentanyl Allergy FELT Verified 12/15/19 13:34 DRUGGED FOR LONG TIME hydrocodone bitartrate Allergy Abdominal Verified 12/15/19 13:34 [From Lortab] Pain, DYSPNEA Influenza Virus Vaccines Allergy Unknown Verified 12/15/19 13:34 lisinopril Allergy Anxiety, Verified 12/15/19 13:34 CAN'T FUNCTION lorazepam [From Ativan] Allergy DILUSIONS Verified 12/15/19 13:34 milk Allergy Diarrhea Verified 12/15/19 13:34 oxycodone HCl [From Percocet] Allergy DYSPNEA, Verified 12/15/19 13:34 ITCHING Exam Vital Signs Temp Pulse Resp BP Pulse Ox 10/24/20 08:13 98.2 F 90 18 122/83 96 Intake and Output 10/23/20 10/24/20 10/24/20 22:59 06:59 14:59 Other: Weight 75.75 kg Height 5 feet 0 inches, weight 167 pounds, BMI 32.6. This is a well-developed well-nourished white female who is alert and oriented times 3 in no acute distress. HEENT: Within normal limits. NECK: Supple without mass or thyromegaly. CHEST AND LUNGS: Clear to auscultation. HEART: Regular rate and rhythm. BREASTS: Are without mass or discharge. There is minimal anterior axillary tenderness bilaterally just lateral to the breast on each side. There is evidence of a previous left breast lumpectomy at approximately the 2 o'clock position with a well-healed scar. There is mild tenderness at the 2:00 to 3 o'clock position of the left breast. There is no nipple inversion. AXILLARY EXAM: Negative for adenopathy. Minimal tenderness in the anterior subaxillary line just lateral to the breast on each side. BACK: Negative for CVA tenderness. ABDOMEN: Soft, nontender, without palpable masses. PELVIC EXAM: External genitalia appears normal with moderate atrophy. Vagina appears normal moderate atrophy. There is no evidence of prolapse. Bimanual examination is negative for mass or tenderness. RECTAL EXAM: Rectovaginal exam is negative for mass or tenderness and is negative for occult blood. EXTREMITIES: Nontender. IMPRESSION: 1. 79-year-old menopausal female status post vaginal hysterectomy with later BSO for benign reasons with normal pelvic exam. 2. Subjective change in the left breast noticed by the patient, of left breast enlargement. There is mild left breast tenderness near the site of her previous left breast lumpectomy. Also there is bilateral soreness just lateral to each breast in the anterior subaxillary line. 3. History of osteoporosis refusing medication for this. PLAN: 1. Pap smears have been discontinued. 2. Self breast awareness was discussed with the patient. 3. Bilateral diagnostic mammogram will be done today. 4. Osteoporosis management was discussed. I have stressed the importance of adequate calcium, vitamin D and regular exercise. Recommended amounts of calcium and vitamin D were also discussed. I have recommended medication because of her increased risk for bone fracture with osteoporosis. She understands that she is at a greater risk for bone fracture and this could be about 5-7 times the risk of pressure with normal bone density. After long discussion regarding medications she again is declining prescription treatment for this. I recommended that she do whatever she can to avoid falling. She will let me know if she changes her mind about medical treatment. 5. She plans on getting the COVID vaccination in the near future. 6. The patient was advised to return in 1-2 years for her well woman examination.
--- NOTE | 2020-10-24 11:56 | MM ---
Reason for exam: clinical finding. Last mammogram was performed 2 years and 2 months ago. History: Patient is postmenopausal. Family history of breast cancer in maternal aunt and breast cancer in maternal cousin. Benign cyst aspiration of the right breast. Benign excisional biopsy of the left breast. Took estrogen for 13 years beginning at age 58. Took progesterone for 13 years beginning at age 58. Indicated problem(s): pain in the left breast. Physical Findings: Dr. Arnold did breast exam. MG 3D Diag Mammo W/Cad JULIETTE Bilateral CC and MLO view(s) were taken. Prior study comparison: August 17, 2018, bilateral MG 3d screening mammo w/cad. April 28, 2017, bilateral MG 3d screening mammo w/cad. There are scattered fibroglandular densities. These results were verbally communicated with the patient and result sheet given to the patient on 10/24/20. ASSESSMENT: Benign, BI-RAD 2 RECOMMENDATION: Routine screening mammogram of both breasts in 1 year. Manage on a clinical basis with regard to left breast fullness.
== END ==
LOC: WWCWWP 08:01
PROVIDERS: ATTEND Obstetrics & Gynecology
DX: Z01.419 Encounter for gynecological examination (general) (routine) without abnormal findings (principal); N62 Hypertrophy of breast; I10 Essential (primary) hypertension; E11.9 Type 2 diabetes mellitus without complications; Z90.710 Acquired absence of both cervix and uterus; Z87.310 Personal history of (healed) osteoporosis fracture; Z98.890 Other specified postprocedural states; Z87.891 Personal history of nicotine dependence; Z79.4 Long term (current) use of insulin; Z79.899 Other long term (current) drug therapy; Z91.013 Allergy to seafood; Z88.5 Allergy status to narcotic agent; Z88.1 Allergy status to other antibiotic agents; Z88.7 Allergy status to serum and vaccine; Z91.011 Allergy to milk products; Z88.8 Allergy status to other drugs, medicaments and biological substances; Z88.6 Allergy status to analgesic agent
CPT/HCPCS: 77066; G0279; 77062

== ENCOUNTER → 2021-01-25 | Outpatient (CLI) | payer MEDICARE ==
--- NOTE | 2021-01-25 16:02 | XR ---
EXAMINATION TYPE: XR KUB DATE OF EXAM: 01/25/2021 COMPARISON: 04/13/2020 HISTORY: Gross hematuria TECHNIQUE: One view abdominal series FINDINGS: The osseous structures are intact. The bowel gas pattern is nonspecific. Postsurgical changes involv ing the vertebral column. A bowel content limits the renal outlines but grossly no suspicious calcifi cation. Arthropathy of the hips and pubic symphysis. Degenerative change lower lumbar spine. IMPRESSION: 1. Nonspecific abdomen with no definite calcification identified.
== END | disposition home or self-care (01) ==
LOC: RADXRMAIN 14:48
PROVIDERS: ATTEND Urology
DX: R31.0 Gross hematuria (principal)
CPT/HCPCS: 74018

== ENCOUNTER 2021-05-23 12:10 | Emergency (ER) | payer MEDICARE ==
[2021-05-23 12:18] VITALS: RESP 18
[2021-05-23] MEDS ORDERED: ONDANSETRON 4 MG/2 ML VIAL IVP STA (12:44)
[2021-05-23] MEDS ORDERED: KETOROLAC 15 MG/ML 1 ML VIAL IVP STA ×2 (12:44→15:03)
[2021-05-23] MEDS ORDERED: SODIUM CHLORIDE 0.9% 500 ML 500 ML IV STA (12:44)
--- NOTE | 2021-05-23 12:51 | ED ---
General Adult HPI - General Chief complaint: Urogenital Stated complaint: Side pain/blood in urine Time Seen by Provider: 05/23/21 12:29 Source: patient, RN notes reviewed Mode of arrival: ambulatory Limitations: no limitations - History of Present Illness Initial comments: 80-year-old female presents to the emergency department accompanied by her son, for evaluation of left flank pain that radiates to the left groin and suprapubic area, onset this morning. Reports symptoms are accompanied by mild nausea. Also had hematuria upon wakening. Patient states she suspects she has a kidney stone. Reports previous history of a kidney stone that passed on its own. Patient states the pain is unbearable and is requesting Toradol. Denies fever, chills, headache, dizziness, chest pain, shortness of breath, right-sided abdominal pain, vomiting, constipation, diarrhea, and dysuria. - Related Data Home Medications Medication Instructions Recorded Confirmed Aspirin 81 mg PO DAILY 11/20/13 12/15/19 Cholecalciferol [Vitamin D3 (25 2,000 unit PO DAILY 03/19/15 12/15/19 Mcg = 1000 Iu)] Temazepam [Restoril] 30 mg PO HS 09/20/16 12/15/19 Insulin Glargine,Hum.rec.anlog 30 units SQ HS 02/05/17 12/15/19 [Toujeo Solostar] Ibuprofen [Motrin] 600 mg PO HS 06/09/17 12/15/19 Insulin Lispro [humaLOG Kwikpen] See Protocol SQ ACHS 06/09/17 12/15/19 Metoprolol Succinate [Toprol XL] 50 mg PO DAILY 06/09/17 12/15/19 Esomeprazole Magnesium [NexIUM] 20 mg PO DAILY 07/26/19 12/15/19 Previous Rx's Medication Instructions Recorded traMADol HCl [Ultram] 50 mg PO QID PRN tab 12/17/19 Cephalexin [Keflex] 500 mg PO Q6HR #40 cap 05/23/21 Ketorolac [Toradol] 10 mg PO Q8HR #15 tab 05/23/21 Allergies Allergy/AdvReac Type Severity Reaction Status Date / Time meperidine HCl [From Demerol] Allergy Severe Anaphylaxis Verified 12/15/19 13:34 shellfish derived [Shellfish] Allergy Severe Anaphylaxis Verified 12/15/19 13:34 morphine Allergy Intermediate SEVERE Verified 12/15/19 13:34 ITCHING, HARD TO BREATH cefuroxime axetil Allergy Unknown Verified 12/15/19 13:34 [From Ceftin] codeine Allergy Abdominal Verified 12/15/19 13:34 Pain, DYSPNEA erythromycin base Allergy Nausea Verified 12/15/19 13:34 [From E-Mycin] fentanyl Allergy FELT Verified 12/15/19 13:34 DRUGGED FOR LONG TIME hydrocodone bitartrate Allergy Abdominal Verified 12/15/19 13:34 [From Lortab] Pain, DYSPNEA Influenza Virus Vaccines Allergy Unknown Verified 12/15/19 13:34 lisinopril Allergy Anxiety, Verified 12/15/19 13:34 CAN'T FUNCTION lorazepam [From Ativan] Allergy DILUSIONS Verified 12/15/19 13:34 milk Allergy Diarrhea Verified 12/15/19 13:34 oxycodone HCl [From Percocet] Allergy DYSPNEA, Verified 12/15/19 13:34 ITCHING Review of Systems ROS Statement: Those systems with pertinent positive or pertinent negative responses have been documented in the HPI. ROS Other: All systems not noted in ROS Statement are negative. Past Medical History Past Medical History: Diabetes Mellitus, Hypertension, Musculoskeletal Disorder, Pneumonia, Skin Disorder, Thyroid Disorder Additional Past Medical History / Comment(s): Type 2 diabetes, MINOR Hiatal Hernia. HX Shingles. CHRONIC BACK PAIN. 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 History of Any Multi-Drug Resistant Organisms: None Reported Past Surgical History: Back Surgery, Bowel Resection, Heart Catheterization Additional Past Surgical History / Comment(s): Mult Back Surgeries-Back, Neck Fusions. Epidural Spinal INJ. Levi Cataracts. Laparotomy for ruptured diverticulum, YOGESH'S PROC, COLOSTOMY 08/23/16. REPAIR PARALYZED DIAPHRAGM 11/14/16. reversal of colostomy in february,. neck surgery 11-11-17 done in [place]. Colonoscopy ?date. EGD upper endoscopy 2019 Past Anesthesia/Blood Transfusion Reactions: Previous Problems w/ Anesthesia Additional Past Anesthesia/Blood Transfusion Reaction / Comment(s): Stopped breathing POST-OP R/T ALLERGY TO PAIN RX, "over medicated" - had to get narcan. Past Psychological History: Anxiety Smoking Status: Former smoker Past Alcohol Use History: None Reported Past Drug Use History: None Reported - Past Family History Brother(s) Family Medical History: Cancer Additional Family Medical History / Comment(s): Colon Maternal Aunt Family Medical History: Cancer Additional Family Medical History / Comment(s): Breast cancer. General Exam Limitations: no limitations (Well-developed, well-nourished female in moderate distress. Initial temperature 90.8, pulse 113, respirations 18, blood pressure 151/80, pulse ox 95% on room air.) General appearance: alert, in no apparent distress ENT exam: Present: normal exam, normal oropharynx, mucous membranes moist Respiratory exam: Present: normal lung sounds bilaterally. Absent: respiratory distress, wheezes, rales, rhonchi, stridor Cardiovascular Exam: Present: regular rate, normal rhythm, normal heart sounds. Absent: systolic murmur, diastolic murmur, rubs, gallop, clicks GI/Abdominal exam: Present: soft, normal bowel sounds. Absent: distended, tenderness, guarding, rebound, rigid Extremities exam: Present: normal inspection, full ROM, normal capillary refill. Absent: tenderness, pedal edema, joint swelling, calf tenderness Back exam: Present: normal inspection, CVA tenderness (L) Neurological exam: Present: alert, oriented X3, CN II-XII intact Psychiatric exam: Present: anxious Skin exam: Present: warm, dry, intact, normal color. Absent: rash Course Vital Signs 05/23/21 05/23/21 05/23/21 12:15 14:18 16:26 Temperature 98 F 98.4 F Pulse Rate 113 H 105 H 98 Respiratory 18 18 18 Rate Blood Pressure 151/80 148/70 150/64 O2 Sat by Pulse 95 98 97 Oximetry Medical Decision Making - Medical Decision Making 80-year-old female presents to the emergency department for evaluation of left flank pain and hematuria. Upon exam, patient states "I think I have a kidney stone." Patient appears uncomfortable. Left CVA tenderness upon palpation. Reports mild nausea. Able to urinate without difficulty. Laboratory studies were obtained showing mild renal insufficiency and a UTI. Urinalysis is positive for nitrites and large amount of blood. CT shows 3 mm left renal calculus. Patient was given Toradol and IV fluids with improvement. Declined any strong pain medicine. Also given oral antibiotic prior to departure and will be discharged home on Keflex as patient states she is able to tolerate this despite the number of antibiotic ALLERGIES she has including another cephalosporin. Also will be prescribed oral Toradol as this is her preference. However, she was instructed not to take Motrin while taking Toradol. She was provided with a urine strainer and instructions to follow-up with her urologist. Return parameters were discussed in detail. Patient verbalizes understanding and agrees with this plan. This patient's care was discussed with my attending Dr. Stoddard. - Lab Data Result diagrams: 05/23/21 13:03 05/23/21 13:03 Lab Results 05/23/21 05/23/21 05/23/21 Range/Units 13:03 13:03 13:07 WBC 8.2 (3.8-10.6) k/uL RBC 5.19 (3.80-5.40) m/uL Hgb 15.6 (11.4-16.0) gm/dL Hct 46.9 H (34.0-46.0) % MCV 90.4 (80.0-100.0) fL MCH 30.0 (25.0-35.0) pg MCHC 33.2 (31.0-37.0) g/dL RDW 12.9 (11.5-15.5) % Plt Count 146 L (150-450) k/uL MPV 8.8 Neutrophils % 82 % Lymphocytes % 9 % Monocytes % 6 % Eosinophils % 1 % Basophils % 0 % Neutrophils # 6.8 (1.3-7.7) k/uL Lymphocytes # 0.8 L (1.0-4.8) k/uL Monocytes # 0.5 (0-1.0) k/uL Eosinophils # 0.1 (0-0.7) k/uL Basophils # 0.0 (0-0.2) k/uL Sodium 135 L (137-145) mmol/L Potassium 4.4 (3.5-5.1) mmol/L Chloride 107 (98-107) mmol/L Carbon Dioxide 20 L (22-30) mmol/L Anion Gap 8 mmol/L BUN 29 H (7-17) mg/dL Creatinine 1.31 H (0.52-1.04) mg/dL Est GFR (CKD-EPI)AfAm 44 (>60 ml/min/1.73 sqM) Est GFR (CKD-EPI)NonAf 39 (>60 ml/min/1.73 sqM) Glucose 219 H (74-99) mg/dL Calcium 9.0 (8.4-10.2) mg/dL Urine Color Yellow Urine Appearance Cloudy H (Clear) Urine pH 5.5 (5.0-8.0) Ur Specific [place] 1.023 (1.001-1.035) Urine Protein 1+ H (Negative) Urine Glucose (UA) 3+ H (Negative) Urine Ketones 1+ H (Negative) Urine Blood Large H (Negative) Urine Nitrite Positive H (Negative) Urine Bilirubin Negative (Negative) Urine Urobilinogen <2.0 (<2.0) mg/dL Ur Leukocyte Esterase Moderate H (Negative) Urine RBC >182 H (0-5) /hpf Urine WBC 20 H (0-5) /hpf Ur Squamous Epith Cells 4 (0-4) /hpf Urine Bacteria Many H (None) /hpf Urine Mucus Occasional H (None) /hpf Urine Yeast (Budding) Few H (None) /hpf - Radiology Data Radiology results: report reviewed, image reviewed CT of the abdomen and pelvis without contrast was obtained. Report was reviewed in its entirety. Impression per Dr. Alejandre is mild to moderate left hydronephrosis with edema and periureteral edema secondary to obstructing proximal left ureteral calculus measuring 3 mm. Disposition Clinical Impression: Renal calculus, left, UTI (urinary tract infection) Disposition: HOME SELF-CARE Condition: Stable Instructions (If sedation given, give patient instructions): Kidney Stones (ED), Urinary Tract Infection in Women (ED) Additional Instructions: Take medication as directed. Do not take Motrin when taking Toradol. Increase your intake of fluids. Follow-up with the urologist for a recheck. Strain your urine. Return to the emergency department with any new, worsening, or concerning symptoms. Prescriptions: Cephalexin [Keflex] 500 mg PO Q6HR #40 cap Ketorolac [Toradol] 10 mg PO Q8HR #15 tab Is patient prescribed a controlled substance at d/c from ED?: No Referrals: Umesh Boston MD [Primary Care Provider] - 1-2 days Time of Disposition: 16:12
[2021-05-23 13:16] LABS: Basophils % (A) 0 %; Eosinophils # (A) 0.1 k/uL (0-0.7); Eosinophils % (A) 1 %; HCT 46.9 % (34.0-46.0); HGB 15.6 gm/dL (11.4-16.0); Lymphocytes # (A) 0.8 k/uL (1.0-4.8); Lymphocytes % (A) 9 %; MCHC 33.2 g/dL (31.0-37.0); MCV 90.4 fL (80.0-100.0); Mean Platelet Volume 8.8; Monocytes # (A) 0.5 k/uL (0-1.0); Monocytes % (A) 6 %; Neutrophils # (A) 6.8 k/uL (1.3-7.7); Neutrophils % (A) 82 %; Platelet Count 146 k/uL (150-450); RBC 5.19 m/uL (3.80-5.40); RDW 12.9 % (11.5-15.5); WBC 8.2 k/uL (3.8-10.6)
[2021-05-23 13:28] LABS: Appearance,Urine Cloudy (Clear); Bacteria,Urine Many /hpf; Bilirubin,Urine Negative (Negative); Blood,Urine Large (Negative); Budding Yeast,Urine Few /hpf; Color,Urine Yellow; Glucose,Urine (UA) 3+ (Negative); Ketones,Urine 1+ (Negative); Leukocyte Esterase,Urine Moderate (Negative); Mucus,Urine Occasional /hpf; Nitrite,Urine Positive (Negative); PH, Urine 5.5 (5.0-8.0); Protein,Urine 1+ (Negative); RBC,Urine >182 /hpf (0-5); Specific Gravity,Urine 1.023 (1.001-1.035); Squamous Epithelial Cell,Urine 4 /hpf (0-4); Urobilinogen,Urine <2.0 mg/dL (<2.0); WBC,Urine 20 /hpf (0-5)
[2021-05-23 13:43] LABS: Potassium 4.4 mmol/L (3.5-5.1)
--- NOTE | 2021-05-23 14:18 | CT ---
EXAMINATION TYPE: CT abdomen pelvis wo con DATE OF EXAM: 05/23/2021 COMPARISON: 04/20/2019 HISTORY: Lt flank pain,hematuria CT DLP: 652.4 mGycm Automated exposure control for dose reduction was used. TECHNIQUE: Helical acquisition of images was performed from the lung bases through the pelvis. FINDINGS: LUNG BASES: Subsegmental changes both lung bases with calcifications along the diaphragm. Basilar bro nchiectasis noted. LIVER/GB: Gallbladder is distended but no gallstones. Multiple hypodensities are seen within the live r indeterminate by noncontrast technique but likely related to cysts and haven't been previously repo rted. PANCREAS: No significant abnormality is seen. SPLEEN: No significant abnormality is seen. ADRENALS: No significant abnormality is seen. KIDNEYS: There is left-sided hydronephrosis with perinephric edema. Hypodense lesion involving the le ft kidney is compatible with simple cyst there is a proximal 3 mm left ureteral calculus. No renal st ones are seen on the right. ADENOPATHY: None visualized. OSSEOUS STRUCTURES: Postsurgical change involving the vertebral column with hypertrophic and degener ative changes and grade 1 anterolisthesis L2 on L3 and L3 on L4. Multilevel foraminal encroachment bashir spected. Hyperostosis of the pubic symphysis. Arthropathy of the hips. BOWEL: Nonspecific abdomen. No obstruction. Previous surgery suggested in the pelvis. OTHER: Atherosclerotic change of the aorta. No evidence of aneurysm. Small fat-containing anterior ab dominal wall hernia. Fat-containing bilateral inguinal hernia. IMPRESSION: 1. Mild to moderate left hydronephrosis with edema and periureteral edema secondary to obstructing pr oximal left ureteral calculus measuring 3 mm.
[2021-05-23] MEDS ORDERED: CEPHALEXIN 500 MG CAP PO STA (16:09)
[2021-05-23 16:35] VITALS: BP 150/64; PULSE 98; TEMP 98.4
== END 2021-05-23 16:26 | disposition home or self-care (01) ==
LOC: EC 12:10
DX: N20.0 Calculus of kidney (principal); N39.0 Urinary tract infection, site not specified; E11.9 Type 2 diabetes mellitus without complications; I10 Essential (primary) hypertension; F41.9 Anxiety disorder, unspecified; Z87.891 Personal history of nicotine dependence; Z79.4 Long term (current) use of insulin; Z79.82 Long term (current) use of aspirin; Z79.899 Other long term (current) drug therapy; Z79.1 Long term (current) use of non-steroidal anti-inflammatories (NSAID); Z88.5 Allergy status to narcotic agent; Z88.8 Allergy status to other drugs, medicaments and biological substances
CPT/HCPCS: 36415; 80048; 85025; 81001; 87086; 74176; 99284; 96374; 96375; 96361; J2405; J1885; 87077; 87186

== ENCOUNTER → 2021-11-11 | Outpatient (CLI) | payer MEDICARE ==
--- NOTE | 2021-11-11 13:29 | CT ---
EXAMINATION TYPE: CT angio chest DATE OF EXAM: 11/11/2021 COMPARISON: CT dated 12/15/2019 HISTORY: SOB CT DLP: 370.5 mGy.cm. Automated Exposure Control for Dose Reduction was Utilized. TECHNIQUE AND CONTRAST: CTA scan of the thorax is performed with IV Contrast, patient injected with 55cc mL of Isovue 370, pu lmonary angiogram protocol. MIP Images are created on an independent workstation and reviewed. FINDINGS: No definite filling defect within the pulmonary trunk, main pulmonary arteries, lobar and segmental b ranches to suggest pulmonary embolism. Subsegmental branches are suboptimally assessed. The pulmonary trunk measures 3.2 cm suggestive of pulmonary hypertension. Scattered arterial and coronary atherosc lerotic calcifications. No gross cardiomegaly. Elevated right hemidiaphragm. Mild fibrotic changes and peripheral reticulations seen in the lung bas es, more on the right side. Mild COPD changes. Patent trachea and main bronchi. No pleural or pericar dial effusion. 10 mm right paratracheal lymph node with other scattered smaller mediastinal and hilar lymph nodes, s table. Scattered hepatic hypodensities, appreciated previously and possibly representing hepatic cyst s. Atrophic pancreas. Osteopenia. Degenerative changes of the shoulder joints and thoracic spine. IMPRESSION: No major or central pulmonary embolism. Signs of pulmonary hypertension. Incidental findings as descr ibed above.
== END | disposition home or self-care (01) ==
LOC: RADCTMAIN 11:26
PROVIDERS: ATTEND Internal Medicine
DX: I27.20 Pulmonary hypertension, unspecified (principal)
CPT/HCPCS: 82565; 84520; 71275; Q9967

== ENCOUNTER → 2022-02-03 | Outpatient (CLI) | payer MEDICARE ==
--- NOTE | 2022-02-03 11:57 | FL ---
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 Fluoroscopy time utilized was 43 seconds. 35 images obtained. FINDINGS: There is elevation of the right hemidiaphragm. There is paradoxical motion of the right hem idiaphragm relative to the normal appearing left hemidiaphragm suggesting diaphragmatic paralysis. IMPRESSION: As Above.
== END | disposition home or self-care (01) ==
LOC: RADFLMAIN 10:17
PROVIDERS: ATTEND Internal Medicine
DX: J98.6 Disorders of diaphragm (principal)
CPT/HCPCS: 76000

== ENCOUNTER → 2022-06-10 | Outpatient (CLI) | payer MEDICARE ==
[2022-06-10 11:42] VITALS: BP 125/75; PULSE 78; RESP 18; TEMP 98.5
--- NOTE | 2022-06-10 12:49 | P.HPOB ---
History of Present Illness H&P Date: 06/10/22 Chief Complaint: The patient is here for her routine gynecologic exam. This is an 81-year-old 014 with an LMP of 1963. The patient is status post hysterectomy and later BSO for benign reasons. The patient is complaining of bilateral breast pains which she notices mostly with twisting her torso. She also has noticed a change in the size of her breasts over the past 3-4 months. She states her left breast has increased in size significantly and the right breast has decreased in size. She states about 15 years ago she had a similar finding and breast cysts were found. She is otherwise without gynecologic complaints. Review of Systems Weight has been stable. Respiratory: She states she can get short of breath with exertion. Her doctors have been evaluating her for this. She denies cardiac problems. GI: Occasional constipation. Past Medical History Past Medical History: Diabetes Mellitus, Hypertension, Musculoskeletal Disorder, Pneumonia, Skin Disorder, Thyroid Disorder Additional Past Medical History / Comment(s): Type 2 diabetes, hypothyroidism, MINOR Hiatal Hernia. HX Shingles. CHRONIC BACK PAIN. 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 History of Any Multi-Drug Resistant Organisms: None Reported Past Surgical History: Back Surgery, Bowel Resection, Heart Catheterization Additional Past Surgical History / Comment(s): Mult Back Surgeries-Back, Neck Fusions. Epidural Spinal INJ. Levi Cataracts. Laparotomy for ruptured diverticulum, YOGESH'S PROC, COLOSTOMY 08/23/16. REPAIR PARALYZED DIAPHRAGM 11/14/16. reversal of colostomy in february,. neck surgery 11-11-17 done in [place]. Colonoscopy ?date. EGD upper endoscopy 2019 Past Anesthesia/Blood Transfusion Reactions: Previous Problems w/ Anesthesia Additional Past Anesthesia/Blood Transfusion Reaction / Comment(s): Stopped breathing POST-OP R/T ALLERGY TO PAIN RX, "over medicated" - had to get narcan. Past Psychological History: Anxiety Additional Psychological History / Comment(s): OCC R/T HEALTH CONCERNS Smoking Status: Former smoker Past Alcohol Use History: None Reported Additional Past Alcohol Use History / Comment(s): Started smoking at age 17, Smoked 1 pp week, quit 1990 Past Drug Use History: None Reported Additional History: She has been since 1979, but is not sexually active. - Past Family History Brother(s) Family Medical History: Cancer Additional Family Medical History / Comment(s): Colon cancer. Maternal Aunt Family Medical History: Cancer Additional Family Medical History / Comment(s): Breast cancer. Medications and Allergies Home Medications Medication Instructions Recorded Confirmed Type Aspirin 81 mg PO DAILY 11/20/13 06/10/22 History Cholecalciferol [Vitamin D3 (25 2,000 unit PO DAILY 03/19/15 06/10/22 History Mcg = 1000 Iu)] Temazepam [Restoril] 30 mg PO HS 09/20/16 06/10/22 History Insulin Glargine,Hum.rec.anlog 30 units SQ HS 02/05/17 06/10/22 History [Toujeo Solostar] Ibuprofen [Motrin] 600 mg PO HS 06/09/17 06/10/22 History Insulin Lispro [humaLOG Kwikpen] See Protocol SQ ACHS 06/09/17 06/10/22 History Metoprolol Succinate [Toprol XL] 50 mg PO DAILY 06/09/17 06/10/22 History Biotin [Biotin Disolve] 1,000 mg PO DAILY 06/10/22 06/10/22 History Allergies Allergy/AdvReac Type Severity Reaction Status Date / Time meperidine HCl [From Demerol] Allergy Severe Anaphylaxis Verified 06/10/22 11:36 shellfish derived [Shellfish] Allergy Severe Anaphylaxis Verified 06/10/22 11:36 morphine Allergy Intermediate SEVERE Verified 06/10/22 11:36 ITCHING, HARD TO BREATH cefuroxime axetil Allergy Unknown Verified 06/10/22 11:36 [From Ceftin] codeine Allergy Abdominal Verified 06/10/22 11:36 Pain, DYSPNEA erythromycin base Allergy Nausea Verified 06/10/22 11:36 [From E-Mycin] fentanyl Allergy FELT Verified 06/10/22 11:36 DRUGGED FOR LONG TIME hydrocodone bitartrate Allergy Abdominal Verified 06/10/22 11:36 [From Lortab] Pain, DYSPNEA Influenza Virus Vaccines Allergy Unknown Verified 06/10/22 11:36 lisinopril Allergy Anxiety, Verified 06/10/22 11:36 CAN'T FUNCTION lorazepam [From Ativan] Allergy DILUSIONS Verified 06/10/22 11:36 milk Allergy Diarrhea Verified 06/10/22 11:36 oxycodone HCl [From Percocet] Allergy DYSPNEA, Verified 06/10/22 11:36 ITCHING Exam Vital Signs Temp Pulse Resp BP Pulse Ox 06/10/22 11:39 98.5 F 78 18 125/75 96 Intake and Output 06/09/22 06/10/22 06/10/22 22:59 06:59 14:59 Other: Weight 75.296 kg Height 4 feet 11 inches, weight 166 pounds, BMI 33.5. This is a well-developed well-nourished white female who is alert and oriented times 3 in no acute distress. HEENT: Within normal limits. NECK: Supple without mass or thyromegaly. CHEST AND LUNGS: Clear to auscultation. HEART: Regular rate and rhythm. BREASTS: Are without mass or discharge. There is minimal breast tenderness in the left lateral aspect of the breast and the right breast at approximately the 8 o'clock position. No masses are palpable. The right breast seems slightly smaller than the left breast. AXILLARY EXAM: Negative for adenopathy. BACK: Negative for CVA tenderness. ABDOMEN: Soft, nontender, without palpable masses. PELVIC EXAM: External genitalia appears normal with moderate atrophy. Vagina appears normal with moderate atrophy. There is no evidence of prolapse. Bimanual examination is negative for mass or tenderness. RECTAL EXAM: Rectovaginal exam is negative for mass or tenderness and is negative for occult blood. EXTREMITIES: Nontender. IMPRESSION: 1. 81-year-old menopausal female status post hysterectomy with later BSO for benign reasons, with bilateral breast pains, without palpable breast masses. 2. History of osteoporosis and the patient again declines medication for this. PLAN: 1. Pap smears have been discontinued. 2. Breast awareness was discussed with the patient. 3. Diagnostic mammogram was recommended. The order slip was given to the patient for this. She will have this scheduled. We have had a long discussion regarding differences between screening mammograms, diagnostic mammograms and breast ultrasound. She understands breast ultrasound may be done if indicated following the diagnostic mammogram views. The need for the ultrasound will be determined by the radiology department. 4. Osteoporosis management was discussed. I have stressed the importance of adequate calcium, vitamin D and regular exercise. Recommended amounts of calcium and vitamin D were also discussed. She again is declining medications for osteoporosis. She would like to have another bone density test done since it has been several years. The order slip was given to the patient for this. 5. I have recommended that she try to minimize caffeine intake as well as chocolate intake as these may make breast tissue more sensitive. 6. The patient was advised to return in 1-2 years for her well woman examination.
== END ==
LOC: WWCWWP 11:15
PROVIDERS: ATTEND Obstetrics & Gynecology
DX: N64.4 Mastodynia (principal); Z87.310 Personal history of (healed) osteoporosis fracture; E11.9 Type 2 diabetes mellitus without complications; I10 Essential (primary) hypertension; Z87.891 Personal history of nicotine dependence; Z79.82 Long term (current) use of aspirin; Z79.4 Long term (current) use of insulin; Z91.013 Allergy to seafood; Z88.5 Allergy status to narcotic agent; Z91.011 Allergy to milk products; Z88.1 Allergy status to other antibiotic agents; Z88.8 Allergy status to other drugs, medicaments and biological substances; Z88.7 Allergy status to serum and vaccine

== ENCOUNTER → 2022-07-01 | Outpatient (CLI) | payer MEDICARE ==
--- NOTE | 2022-07-01 13:35 | MM ---
Reason for Exam: Additional evaluation requested from prior study. Last mammogram was performed 1 year(s) and 8 month(s) ago. Indicated Problems: Pain of both sides (Global) : under breasts...chest wall. Patient History: Menarche at age 12. First Full-Term at age 17. Left ovary removed at age 59. Right ovary removed at age 59. Hysterectomy at age 23. Postmenopausal. Estrogen, starting at age 58 for 13 years. Progesterone, starting at age 58 for 13 years. Benign Excisional Biopsy on the left side. Benign Cyst Aspiration on the right side. Maternal cousin had breast cancer. Maternal aunt had breast cancer. Risk Values: Mariah 5 year model risk: 1.4%. NCI Lifetime model risk: 2.0%. Prior Study Comparison: 01/15/2015 Bilateral Screening Mammogram, [facility]. 02/27/2016 Bilateral Screening Mammogram, [facility]. 04/28/2017 Bilateral Screening Mammogram, [facility]. 08/17/2018 Bilateral Screening Mammogram, [facility]. 10/24/2020 Bilateral Diagnostic Mammogram, [facility]. Tissue Density: There are scattered fibroglandular densities. Findings: Analyzed By CAD. A few benign secretory and oil cyst calcifications anteriorly on both sides remain unchanged. No significant change from prior exams. Overall Assessment: Incomplete: need additional imaging evaluation, BI-RAD 0 Management: Diagnostic Breast Ultrasound of both breasts. Targeted inferiorly to the site of patient's pain and lump. Electronically signed and approved by: Krys Cuevas M.D. Radiologist
--- NOTE | 2022-07-01 14:14 | USB ---
Reason for Exam: Clinical finding. Patient History: Menarche at age 12. First Full-Term at age 17. Left ovary removed at age 59. Right ovary removed at age 59. Hysterectomy at age 23. Postmenopausal. Estrogen, starting at age 58 for 13 years. Progesterone, starting at age 58 for 13 years. Benign Excisional Biopsy on the left side. Benign Cyst Aspiration on the right side. Maternal cousin had breast cancer. Maternal aunt had breast cancer. Risk Values: Mariah 5 year model risk: 1.4%. NCI Lifetime model risk: 2.0%. Technique: Method: Targeted. Prior Study Comparison: 04/28/2017 Bilateral Screening Mammogram, [facility]. 08/17/2018 Bilateral Screening Mammogram, [facility]. 10/24/2020 Bilateral Diagnostic Mammogram, [facility]. Findings: The lower section of the breast of both breasts was scanned. Targeted ultrasound along the inferior aspect of both breasts corresponding to the patient's lump and pain, 4-8 o'clock position on both sides. There is no solid or cystic lesion. No duct ectasia. Scanning was extending out 12 cm from the nipple to assess both the inframammary fold and just inferior to the inframammary fold on both sides. Again, no discrete abnormality is seen by ultrasound. Overall Assessment: Benign, BI-RAD 2 Management: Screening Mammogram of both breasts in 1 year. Further clinical management of patient's reported lump and pain below both breasts. Ultrasound and mammogram was unable to identify any discrete abnormality. Patient should continue monthly self breast exams. This exam should not preclude additional follow-up of suspicious palpable abnormalities. Results were given to the patient verbally at the time of exam. Electronically signed and approved by: Krys Cuevas M.D. Radiologist
--- NOTE | 2022-07-01 18:18 | BD ---
EXAMINATION TYPE: Axial Bone Density DATE OF EXAM: 07/01/2022 COMPARISON: 08/17/2018 CLINICAL HISTORY: 81 years year old Female. ICD-10 CODE: Z78.0 asymptomatic menopausal state Height: 59.7 IN Weight: 165 LBS FRAX RISK QUESTIONS: Secondary Osteoporosis: 3. Menopause before 45: PARTIAL HYST AGE AGE 23; JULIETTE OVARIES REMOVED 2000 RISK FACTORS HISTORY OF: Surgery to Spine L SPINE SURGERY 4 SINCE 2003 Active: LIMITED Postmenopausal woman: PARTIAL HYST AGE 23; JULIETTE OVARIES REMOVED AGE 59 Take estrogen and/or progesterone medications: NOT NOW How lon YEARS Lost more than 2 inches in height since high school: 2 1/2 INCHES YES MEDICATIONS: Thyroid Medications: YES Which medication: Synthroid How Lon YEAR Additional Medications: SYNTHROID, VIT D, METOPROLOL, BABY ASPIRIN, BIOTIN, SLEEP AID , MOTRIN, INSUL IN EXAM MEASUREMENTS: Bone mineral densitometry was performed using the [employer] System. L SPINE SURGERIES Bone mineral density about the R hip (g/cm2): 0.664 Bone mineral density about the L hip (g/cm2): 0.702 T Score values are as follows: -----R Neck: -2.7 -----L Neck: -2.4 -----R Total: -2.5 -----L Total: -2.0 Bone mineral density has: Decreased -3.2% since study of: 08/17/2018 Bone mineral density about the L Wrist (g/cm2): 0.426 T Score values are as follows: -----Dist. R+U: -4.7 -----Prox. R+U: -3.7 -----Radius total: -4.1 Bone mineral density has: Decreased -3.5% since study of: 08/17/2018 FRAX%s: The graph provided illustrates a 20.1 chance for a major osteoporotic fx and a 7.5 chance for the hips probability for fx in 10 years time. IMPRESSION: Osteoporosis (T Score less than -2.5). There is increased fracture risk and therapy is usually indicated based on age. Re-Screen 1-2 years. NOTE: T-SCORE=SD OF THE YOUNG ADULT MEAN.
--- NOTE | 2022-07-02 11:50 | P.PN ---
Progress Note - Text Progress Note Date: 07/02/22 OUTPATIENT FOLLOW-UP NOTE TEST(S)/RESULTS: Test results from 07/01/2022 include bone density test showing osteoporosis, and benign bilateral diagnostic mammogram with bilateral breast ultrasounds. METHOD OF NOTIFICATION: The patient was notified by phone. PATIENT COMMENTS: The patient feels strongly that she does not want to take perception medication for her osteoporosis. DIAGNOSIS: Osteoporosis. Benign bilateral diagnostic diagnostic mammogram with bilateral breast ultrasounds. DISCUSSION: We have had a long discussion regarding osteoporosis and her increased risk for bone fractures. I have recommended medications because of her significantly increased risk for bone fractures. She is declining all prescription medications for osteoporosis. She states she is very sensitive to all medications and frequent gets significant side effects from medications. She understands that she is at very high risk for bone fracture. I have stressed the importance of adequate calcium, vitamin D, and regular exercise. She will let me know if she changes her mind about taking prescription me dications for this. She understands the breast imaging studies did not show any significant problems in the pain that she has been experiencing near the breasts may be from other causes. She will follow up with her PCP for those symptoms. PLAN: As above. She was advised to return in one year for her annual well woman exam.
== END | disposition home or self-care (01) ==
LOC: RADMAMWWP 12:52
PROVIDERS: ATTEND Obstetrics & Gynecology
DX: N60.01 Solitary cyst of right breast (principal); M81.0 Age-related osteoporosis without current pathological fracture; N64.4 Mastodynia; Z78.0 Asymptomatic menopausal state; Z80.3 Family history of malignant neoplasm of breast
CPT/HCPCS: 77080; 77066; 76642; G0279; 77062

== ENCOUNTER 2022-10-26 12:46 | Emergency (ER) | payer MEDICARE ==
[2022-10-26 13:01] VITALS: TEMP 98.5
[2022-10-26] MEDS ORDERED: IPRATROPIUM-ALBUTEROL 3 ML NEB INHALATION STA (13:32)
--- NOTE | 2022-10-26 13:34 | ED ---
General Adult HPI - General Chief complaint: Upper Respiratory Infection Stated complaint: sore throat,cough Time Seen by Provider: 10/26/22 13:00 Source: patient, RN notes reviewed, old records reviewed Mode of arrival: wheelchair Limitations: no limitations - History of Present Illness Initial comments: This is a 81-year-old female who presents emergency Department complaining of a three-day history of cough and sore throat. Patient states she didn't: This IS NEGATIVE. PATIENT STATES SHE HAS TAKEN A BREATHING TREATMENT HELP IT DOES IMPROVE WITH SHORT-TERM. PATIENT DENIES ANY FEVER CHILLS. PATIENT DENIES BEING SHORT OF BREATH OR HAVING ANY DIFFICULTY BREATHING. PATIENT DENIES ANY CHEST PAIN OR PALPITATIONS. PATIENT DENIES ANY OTHER SYMPTOMS AT THIS TIME. PATIENT STATES SHE DOES HAVE A HISTORY OF ALLERGIES. - Related Data Home Medications Medication Instructions Recorded Confirmed Aspirin 81 mg PO DAILY 11/20/13 06/10/22 Cholecalciferol [Vitamin D3 (25 2,000 unit PO DAILY 03/19/15 06/10/22 Mcg = 1000 Iu)] Temazepam [Restoril] 30 mg PO HS 09/20/16 06/10/22 Insulin Glargine,Hum.rec.anlog 30 units SQ HS 02/05/17 06/10/22 [Toujeo Solostar] Ibuprofen [Motrin] 600 mg PO HS 06/09/17 06/10/22 Insulin Lispro [humaLOG Kwikpen] See Protocol SQ ACHS 06/09/17 06/10/22 Metoprolol Succinate [Toprol XL] 50 mg PO DAILY 06/09/17 06/10/22 Biotin [Biotin Disolve] 1,000 mg PO DAILY 06/10/22 06/10/22 Previous Rx's Medication Instructions Recorded predniSONE [Deltasone] 40 mg PO DAILY #8 tab 10/26/22 Allergies Allergy/AdvReac Type Severity Reaction Status Date / Time meperidine HCl [From Demerol] Allergy Severe Anaphylaxis Verified 10/26/22 13:01 shellfish derived [Shellfish] Allergy Severe Anaphylaxis Verified 10/26/22 13:01 morphine Allergy Intermediate SEVERE Verified 10/26/22 13:01 ITCHING, HARD TO BREATH cefuroxime axetil Allergy Unknown Verified 10/26/22 13:01 [From Ceftin] codeine Allergy Abdominal Verified 10/26/22 13:01 Pain, DYSPNEA erythromycin base Allergy Nausea Verified 10/26/22 13:01 [From E-Mycin] fentanyl Allergy FELT Verified 10/26/22 13:01 DRUGGED FOR LONG TIME hydrocodone bitartrate Allergy Abdominal Verified 10/26/22 13:01 [From Lortab] Pain, DYSPNEA Influenza Virus Vaccines Allergy Unknown Verified 10/26/22 13:01 lisinopril Allergy Anxiety, Verified 10/26/22 13:01 CAN'T FUNCTION lorazepam [From Ativan] Allergy DILUSIONS Verified 10/26/22 13:01 milk Allergy Diarrhea Verified 10/26/22 13:01 oxycodone HCl [From Percocet] Allergy DYSPNEA, Verified 10/26/22 13:01 ITCHING Review of Systems ROS Statement: Those systems with pertinent positive or pertinent negative responses have been documented in the HPI. ROS Other: All systems not noted in ROS Statement are negative. Past Medical History Past Medical History: Diabetes Mellitus, Hypertension, Musculoskeletal Disorder, Pneumonia, Skin Disorder, Thyroid Disorder Additional Past Medical History / Comment(s): Type 2 diabetes, hypothyroidism, MINOR Hiatal Hernia. HX Shingles. CHRONIC BACK PAIN. 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 History of Any Multi-Drug Resistant Organisms: None Reported Past Surgical History: Back Surgery, Bowel Resection, Heart Catheterization Additional Past Surgical History / Comment(s): Mult Back Surgeries-Back, Neck Fusions. Epidural Spinal INJ. Levi Cataracts. Laparotomy for ruptured diverticulum, YOGESH'S PROC, COLOSTOMY 08/23/16. REPAIR PARALYZED DIAPHRAGM 11/14/16. reversal of colostomy in february,. neck surgery 11-11-17 done in [place]. Colonoscopy ?date. EGD upper endoscopy 2019 Past Anesthesia/Blood Transfusion Reactions: Previous Problems w/ Anesthesia Additional Past Anesthesia/Blood Transfusion Reaction / Comment(s): Stopped breathing POST-OP R/T ALLERGY TO PAIN RX, "over medicated" - had to get narcan. Past Psychological History: Anxiety Smoking Status: Former smoker Past Alcohol Use History: None Reported Past Drug Use History: None Reported - Past Family History Brother(s) Family Medical History: Cancer Additional Family Medical History / Comment(s): Colon cancer. Maternal Aunt Family Medical History: Cancer Additional Family Medical History / Comment(s): Breast cancer. General Exam - General Exam Comments Initial Comments: GENERAL: Patient is well-developed and well-nourished. Patient is nontoxic and well- hydrated and is in mild distress. ENT: Neck is soft and supple. No significant lymphadenopathy is noted. Oropharynx is clear. Moist mucous membranes. Neck has full range of motion without eliciting any pain. EYES: The sclera were anicteric and conjunctiva were pink and moist. Extraocular movements were intact and pupils were equal round and reactive to light. Eyelids were unremarkable. PULMONARY: Unlabored respirations. Good breath sounds bilaterally. No audible rales rhonchi or wheezing was noted. CARDIOVASCULAR: There is a regular rate and rhythm without any murmurs gallops or rubs. ABDOMEN: Soft and nontender with normal bowel sounds. SKIN: Skin is clear with no lesions or rashes and otherwise unremarkable. NEUROLOGIC: Patient is alert and oriented x3. Cranial nerves II through XII are grossly intact. Motor and sensory are also intact. Normal speech, volume and content. Symmetrical smile. MUSCULOSKELETAL: Normal extremities with adequate strength and full range of motion. LYMPHATICS: No significant lymphadenopathy is noted PSYCHIATRIC: Normal psychiatric evaluation. Limitations: no limitations Course Vital Signs 10/26/22 10/26/22 10/26/22 12:59 13:41 13:51 Temperature 98.5 F Pulse Rate 108 H 96 93 Respiratory 22 20 Rate Blood Pressure 124/70 123/64 O2 Sat by Pulse 93 L 93 L Oximetry 10/26/22 14:02 Temperature Pulse Rate 96 Respiratory Rate Blood Pressure O2 Sat by Pulse Oximetry Medical Decision Making - Medical Decision Making Was pt. sent in by a medical professional or institution (, PA, GRADUATE TEACHING ASSOCIATE, urgent care, hospital, or senior living...) When possible be specific @ -No Did you speak to anyone other than the patient for history (EMS, parent, family, police, friend...)? What history was obtained from this source @ -No Did you review nursing and triage notes (agree or disagree)? Why? @ -I reviewed and agree with nursing and triage notes Were old charts reviewed (outside hosp., previous admission, EMS record, old EKG, old radiological studies, urgent care reports/EKG's, senior living records)? Report findings @ -No old charts were reviewed Differential Diagnosis (chest pain, altered mental status, abdominal pain women, abdominal pain men, vaginal bleeding, weakness, fever, dyspnea, syncope, headache, dizziness, GI bleed, back pain, seizure, CVA, palpatations, mental health, musculoskeletal)? @ -Upper respiratory infection, strep throat, bronchitis, pneumonia, this is not all inclusive list EKG interpreted by me (3pts min.). @ -As above X-rays interpreted by me (1pt min.). @ -As interpreted by myself is in no acute abnormality CT interpreted by me (1pt min.). @ -None done U/S interpreted by me (1pt. min.). @ -None done What testing was considered but not performed or refused? (CT, X-rays, U/S, labs)? Why? @ -None What meds were considered but not given or refused? Why? @ -None Did you discuss the management of the patient with other professionals ( professionals i.e. , PA, GRADUATE TEACHING ASSOCIATE, lab, RT, psych nurse, social welfare research worker, canopy inspector, teacher, rating officer, housing case manager)? Give summary @ -No Was smoking cessation discussed for >3mins.? @ -No Was critical care preformed (if so, how long)? @ -No Were there social determinants of health that impacted care today? How? (Homelessness, low income, unemployed, alcoholism, drug addiction, transportation, low edu. Level, literacy, decrease access to med. care, correction, rehab)? @ -No Was there de-escalation of care discussed even if they declined (Discuss DNR or withdrawal of care, Hospice)? DNR status @ -No What co-morbidities impacted this encounter? (DM, HTN, Smoking, COPD, CAD, Cancer, CVA, ARF, Chemo, Hep., AIDS, mental health diagnosis, sleep apnea, morbid obesity)? @ -None Was patient admitted / discharged? Hospital course, mention meds given and route, prescriptions, significant lab abnormalities, going to OR and other pertinent info. @ -Had a breathing treatment in the emergency department did feel a bit better she does have a nebulizer at home and told to continue that she isn't taking her Adelita lately and she will continue that now at home. Patient also developed low dose of steroids to help with some of the pharyngitis that she's raising as well as with her difficulty breathing. Undiagnosed new problem with uncertain prognosis? @ -No Drug Therapy requiring intensive monitoring for toxicity (Heparin, Nitro, Insulin, Cardizem)? @ -No Were any procedures done? @ -No Diagnosis/symptom? @ -Upper respiratory infection Acute, or Chronic, or Acute on Chronic? @ -Acute Uncomplicated (without systemic symptoms) or Complicated (systemic symptoms)? @ -Uncomplicated Side effects of treatment? @ -No Exacerbation, Progression, or Severe Exacerbation? @ -No Poses a threat to life or bodily function? How? (Chest pain, [place], [place], pneumonia, PE, COPD, DKA, ARF, appy, cholecystitis, CVA, Diverticulitis, Homicidal, Suicidal, threat to staff... and all critical care pts) @ -No - Lab Data Lab Results 10/26/22 Range/Units 13:44 Group A Strep (PCR) NOT DETECTED (Not Detectd) Disposition Clinical Impression: Upper respiratory tract infection Disposition: HOME SELF-CARE Condition: Good Instructions (If sedation given, give patient instructions): Upper Respiratory Infection (ED) Prescriptions: predniSONE [Deltasone] 40 mg PO DAILY #8 tab Is patient prescribed a controlled substance at d/c from ED?: No Referrals: Umesh Boston MD [Primary Care Provider] - 1-2 days
[2022-10-26 13:43] VITALS: BP 123/64; RESP 18
[2022-10-26 14:03] VITALS: PULSE 96
--- NOTE | 2022-10-26 14:53 | XR ---
EXAMINATION TYPE: XR chest 2V DATE OF EXAM: 10/26/2022 COMPARISON: Chest CT July 22, 2022 HISTORY: Cough for a few days with difficulty breathing. History of paralyzed diaphragm. TECHNIQUE: Frontal and lateral views of the chest are obtained. FINDINGS: Elevated right hemidiaphragm redemonstrated. There is some chronic parenchymal change with out suspicious focal air space opacity, pleural effusion, or pneumothorax seen. The cardiac silhouet te size is stable and upper limits of normal. Surgical change to the cervical spine is partially imag ed. IMPRESSION: Chronic change and elevated right hemidiaphragm without acute pulmonary process.
== END 2022-10-26 15:43 | disposition home or self-care (01) ==
LOC: EC 12:46
DX: J06.9 Acute upper respiratory infection, unspecified (principal); I10 Essential (primary) hypertension; E11.9 Type 2 diabetes mellitus without complications; F41.9 Anxiety disorder, unspecified; Z87.891 Personal history of nicotine dependence; Z79.82 Long term (current) use of aspirin; Z79.4 Long term (current) use of insulin; Z79.899 Other long term (current) drug therapy; Z88.1 Allergy status to other antibiotic agents; Z88.5 Allergy status to narcotic agent; Z88.7 Allergy status to serum and vaccine; Z88.8 Allergy status to other drugs, medicaments and biological substances; Z91.013 Allergy to seafood; Z91.011 Allergy to milk products
CPT/HCPCS: 71046; 87651; 94640; 99283

== ENCOUNTER → 2023-02-05 | Outpatient (CLI) | payer MEDICARE ==
--- NOTE | 2023-02-05 12:37 | XR ---
EXAMINATION TYPE: XR cervical spine limited DATE OF EXAM: 02/05/2023 COMPARISON: 12/19/2019 HISTORY: Postop TECHNIQUE: Four views are submitted. FINDINGS: The odontoid is intact. There are no compression deformities. The prevertebral soft tissue structur es are within normal limits. Diffuse osteopenia with extensive postsurgical change and grade 1 anter olisthesis of C3 and C4. The right appears somewhat posterior but stable. The tips of the screws appe ar to extend to the posterior cortical margin of the. Prevertebral soft tissue structures within normal limits. Lung apices clear. IMPRESSION: 1. Diffuse osteopenia with stable postsurgical change in alignment. Would recommend correlation with CT scan to assess the surgical ivan screws or positioning\malfunction..
--- NOTE | 2023-02-05 14:58 | CT ---
EXAMINATION TYPE: CT cervical spine wo con CT DLP: 551.60 mGycm, Automated exposure control for dose reduction was used. DATE OF EXAM: 02/05/2023 12:24 PM COMPARISON: 02/06/2021. CLINICAL INDICATION:Female, 82 years old with history of M48.02 SPINAL STENOSIS, CERVICAL REGION, nec k pain, hx of neck sx TECHNIQUE: Axial CT images from the skull base to the inferior aspect of T2 we obtained without intra venous contrast. Coronal and sagittal reformatted images were also reviewed. Contrast used: (if blank None) Oral contrast used: (if blank None) FINDINGS: Fracture: None. Osseous structures: Postsurgical changes to the spine with hardware appearing intact. No evidence for acute fracture. Laminectomy changes throughout the cervical spine. Osteophyte formation with uncover tebral and facet joint arthropathy remain present. There is fusion of 4 C5-C6 and C7 Vertebral alignment: Alignment within normal limits. Spinal canal/Neural Foramina: No evidence of significant spinal canal narrowing. No evidence for sign ificant neural foraminal stenosis. Neck soft tissues: Prevertebral soft tissues are within normal limits. Other: The airway is patent. The lung apices are clear. IMPRESSION: 1. No evidence of cervical spine fracture. 2. Postsurgical changes with hardware intact. 3. Multilevel degenerative disc disease not significantly changed from prior.
== END | disposition home or self-care (01) ==
LOC: RADCTMAIN 11:47
PROVIDERS: ATTEND Neurological Surgery
DX: M48.02 Spinal stenosis, cervical region (principal); M50.322 Other cervical disc degeneration at C5-C6 level; M85.88 Other specified disorders of bone density and structure, other site; Z98.890 Other specified postprocedural states
CPT/HCPCS: 72040; 72125

== ENCOUNTER → 2023-03-17 | Outpatient (CLI) | payer MEDICARE ==
--- NOTE | 2023-03-18 08:44 | XR ---
EXAMINATION TYPE: XR Hip RT and AP Pelvis DATE OF EXAM: 03/17/2023 COMPARISON: NONE HISTORY: Hip pain TECHNIQUE: A single AP view of the pelvis is obtained. Two views of the right hip are obtained. FINDINGS: There is postsurgical change lower lumbar spine with diffuse osteopenia and bilateral hip arthropathy there is a osseous excrescence of the left iliac bone. Mild bilateral hip arthropathy. No erosive changes. Postsurgical changes in the pelvis. IMPRESSION: 1. Diffuse osteopenia with mild arthropathy.
--- NOTE | 2023-03-18 08:57 | CT ---
EXAMINATION TYPE: CT pelvis wo con DATE OF EXAM: 03/17/2023 COMPARISON: 05/23/2021 HISTORY: pelvic pain, sacroiliac pain CT DLP: 445.50 mGycm Automated exposure control for dose reduction was used. FINDINGS: Diffuse osteopenia. There is severe degenerative disc disease L5-S1 postsurgical changes are seen. Va cuum phenomenon involving the SI joints. Chronic appearing deformity of the bilateral pubic ramus sug gests remote trauma. There is mild hypertrophic arthropathy BILATERALLY greater on the right. Bladder is nondistended. Previous surgery involving the rectosigmoid junction. Vascular calcification s are seen soft tissue granuloma in the posterior subcutaneous tissues. Small fat-containing right in guinal hernia. Small fat-containing anterior abdominal wall hernia. IMPRESSION: 1. POSTSURGICAL CHANGE AND DEGENERATIVE DISC DISEASE LOWER LUMBAR SPINE. 2 2. SEVERE DIFFUSE OSTEOPENIA WITH BILATERAL SI JOINT ARTHROPATHY. 3. SACRUM APPEARS INTACT.
== END | disposition home or self-care (01) ==
LOC: RADCTMAIN 16:17
PROVIDERS: ATTEND Neurological Surgery
DX: M53.3 Sacrococcygeal disorders, not elsewhere classified (principal); M85.851 Other specified disorders of bone density and structure, right thigh; M16.11 Unilateral primary osteoarthritis, right hip; M51.36 Other intervertebral disc degeneration, lumbar region
CPT/HCPCS: 72192; 73502

== ENCOUNTER → 2023-05-06 | Outpatient (CLI) | payer MEDICARE ==
[2023-05-06 14:56] LABS: African American GFR (CKD) 75 (>60 ml/min/1.73 sqM); Blood Urea Nitrogen 21 mg/dL (7-17); Non-African American GFR(CKD) 65 (>60 ml/min/1.73 sqM)
--- NOTE | 2023-05-06 16:04 | CT ---
EXAMINATION TYPE: CT abdomen w con DATE OF EXAM: 05/06/2023 COMPARISON: None available. HISTORY: ABDOMINAL DONAHUE, HX OF LUMPS/HERNIAS UNDER EACH BREAST/UPPER STOMACH CT DLP: 1081.90 mGycm Automated exposure control for dose reduction was used. TECHNIQUE: Helical acquisition of images was performed from the lung bases through the top of iliac crest to include entire abdomen. CONTRAST: Performed with Oral Contrast and with IV Contrast, patient injected with 100 mL of Isovue 300. FINDINGS: LUNG BASES: No significant abnormality is appreciated. LIVER/GB: There are scattered simple cysts seen within the liver. No gross gallbladder abnormality is seen by CT. PANCREAS: No significant abnormality is seen. SPLEEN: No significant abnormality is seen. ADRENALS: No significant abnormality is seen. KIDNEYS: There is a 5.5 cm simple cyst in the inferior pole of the left kidney. The kidneys otherwise appear unremarkable BOWEL: No significant abnormality is seen. LYMPH NODES: No significant abnormality is seen. OSSEOUS STRUCTURES: There is a posterior spinal fusion between L3 and L4. There are no acute osseous abnormalities. FREE AIR: No free air is visualized. OTHER: Moderate to significant vascular calcification is seen throughout the abdominal aorta without evidence of aneurysmal dilation or dissection. There is a small fat-containing supraumbilical ventral hernia. IMPRESSION: 1. SMALL FAT-CONTAINING SUPRAUMBILICAL VENTRAL HERNIA. 2. NO ACUTE PROCESS OTHERWISE SEEN WITHIN THE ABDOMEN.
== END | disposition home or self-care (01) ==
LOC: RADCTMAIN 14:03
PROVIDERS: ATTEND Internal Medicine
DX: K43.9 Ventral hernia without obstruction or gangrene (principal); R10.84 Generalized abdominal pain
CPT/HCPCS: 82565; 84520; 74160; 36415; Q9967

== ENCOUNTER 2023-09-08 16:19 | Observation (INO) | payer MEDICARE ==
[2023-09-08 16:29] VITALS: TEMP 97.8
--- NOTE | 2023-09-08 16:58 | ED ---
General Adult HPI - General Chief complaint: Shortness of Breath Stated complaint: JAYDON,Weakness Time Seen by Provider: 09/08/23 16:35 Source: patient, RN notes reviewed, old records reviewed Mode of arrival: ambulatory Limitations: no limitations - History of Present Illness Initial comments: This is an 82-year-old female who has a history of paralyzed diaphragm on the right. Patient states over the last 3 days she just has not been feeling right she has a rolling sensation in the lower chest and she states has been extremely short of breath which is getting progressively worse. Patient states she can barely walk down the hallway to her bathroom. Patient states she had a cough about a month ago that lasted a couple weeks but she never got evaluated. Patient states she has no cough at this time. Patient denies any fever or chills patient denies abdominal pain patient denies any nausea vomiting - Related Data Home Medications Medication Instructions Recorded Confirmed Aspirin 81 mg PO DAILY@139911/20/13 09/08/23 Temazepam [Restoril] 30 mg PO HS 09/20/16 09/08/23 Insulin Glargine,Hum.rec.anlog 40 units SQ HS 02/05/17 09/08/23 [Toujeo Solostar] Ibuprofen [Motrin] 600 mg PO HS 06/09/17 09/08/23 Insulin Lispro [humaLOG Kwikpen] See Protocol SQ ACHS 06/09/17 09/08/23 Metoprolol Succinate [Toprol XL] 50 mg PO DAILY@139906/09/17 09/08/23 Albuterol Nebulized [Ventolin 2.5 mg INHALATION RT-QID PRN 09/08/23 09/08/23 Nebulized] Biotin 1000mg 1,000 mg PO DAILY@139909/08/23 09/08/23 Cholecalciferol [Vitamin D3 (25 50 mcg PO DAILY@139909/08/23 09/08/23 Mcg = 1000 Iu)] Ibuprofen [Motrin] 800 mg PO DAILY PRN 09/08/23 09/08/23 Levothyroxine Sodium [Synthroid] 50 mcg PO DAILY 09/08/23 09/08/23 Allergies Allergy/AdvReac Type Severity Reaction Status Date / Time meperidine HCl [From Demerol] Allergy Severe Anaphylaxis Verified 09/08/23 18:23 shellfish derived [Shellfish] Allergy Severe Anaphylaxis Verified 09/08/23 18:23 morphine Allergy Intermediate SEVERE Verified 09/08/23 18:23 ITCHING, HARD TO BREATH cefuroxime axetil Allergy Unknown Verified 09/08/23 18:23 [From Ceftin] codeine Allergy Abdominal Verified 09/08/23 18:23 Pain, DYSPNEA hydrocodone bitartrate Allergy Abdominal Verified 09/08/23 18:23 [From Lortab] Pain, DYSPNEA Influenza Virus Vaccines Allergy Unknown Verified 09/08/23 18:23 lisinopril Allergy Anxiety, Verified 09/08/23 18:23 CAN'T FUNCTION lorazepam [From Ativan] Allergy DILUSIONS Verified 09/08/23 18:23 milk Allergy Diarrhea Verified 09/08/23 18:23 oxycodone HCl [From Percocet] Allergy DYSPNEA, Verified 09/08/23 18:23 ITCHING erythromycin base AdvReac Nausea Verified 09/08/23 18:23 [From E-Mycin] fentanyl AdvReac FELT Verified 09/08/23 18:23 DRUGGED FOR LONG TIME Review of Systems ROS Statement: Those systems with pertinent positive or pertinent negative responses have been documented in the HPI. ROS Other: All systems not noted in ROS Statement are negative. Past Medical History Past Medical History: Diabetes Mellitus, Hypertension, Musculoskeletal Disorder, Pneumonia, Skin Disorder, Thyroid Disorder Additional Past Medical History / Comment(s): Type 2 diabetes, hypothyroidism, MINOR Hiatal Hernia. HX Shingles. CHRONIC BACK PAIN. 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 kidney stones History of Any Multi-Drug Resistant Organisms: None Reported Past Surgical History: Back Surgery, Bowel Resection, Heart Catheterization Additional Past Surgical History / Comment(s): Mult Back Surgeries-Back, Neck Fusions. Epidural Spinal INJ. Levi Cataracts. Laparotomy for ruptured diverticulum, YOGESH'S PROC, COLOSTOMY 08/23/16. REPAIR PARALYZED DIAPHRAGM 11/14/16. reversal of colostomy in february,. neck surgery 11-11-17 done in [place]. Colonoscopy ?date. EGD upper endoscopy 2019 Past Anesthesia/Blood Transfusion Reactions: Previous Problems w/ Anesthesia Additional Past Anesthesia/Blood Transfusion Reaction / Comment(s): Stopped breathing POST-OP R/T ALLERGY TO PAIN RX, "over medicated" - had to get narcan. Past Psychological History: Anxiety Smoking Status: Former smoker Past Alcohol Use History: None Reported Past Drug Use History: None Reported - Past Family History Brother(s) Family Medical History: Cancer Additional Family Medical History / Comment(s): Colon cancer. Maternal Aunt Family Medical History: Cancer Additional Family Medical History / Comment(s): Breast cancer. General Exam - General Exam Comments Initial Comments: GENERAL: Patient is well-developed and well-nourished. Patient is nontoxic and well- hydrated and is in mild distress. ENT: Neck is soft and supple. No significant lymphadenopathy is noted. Oropharynx is clear. Moist mucous membranes. Neck has full range of motion without eliciting any pain. EYES: The sclera were anicteric and conjunctiva were pink and moist. Extraocular movements were intact and pupils were equal round and reactive to light. Eyelids were unremarkable. PULMONARY: Patient is short of breath after having spoken for a period of time. Patient has decreased breath sounds in the right base CARDIOVASCULAR: There is a regular rate and rhythm without any murmurs gallops or rubs. ABDOMEN: Soft and nontender with normal bowel sounds. SKIN: Skin is clear with no lesions or rashes and otherwise unremarkable. NEUROLOGIC: Patient is alert and oriented x3. Cranial nerves II through XII are grossly intact. Motor and sensory are also intact. Normal speech, volume and content. Symmetrical smile. MUSCULOSKELETAL: Normal extremities with adequate strength and full range of motion. LYMPHATICS: No significant lymphadenopathy is noted PSYCHIATRIC: Normal psychiatric evaluation. Limitations: no limitations Course Vital Signs 09/08/23 16:20 Temperature 97.8 F Pulse Rate 98 Respiratory 20 Rate Blood Pressure 155/91 O2 Sat by Pulse 97 Oximetry Medical Decision Making - Medical Decision Making EKG is interpreted by myself. EKG shows a sinus rhythm at 86 bpm parables 133 QRS of 72 QT interval 357 QTc is 4 1. Patient's EKG shows no ST segment ovation or depression. Was pt. sent in by a medical professional or institution (, PA, ASSISTANT MANAGER OF OPERATIONS, urgent care, hospital, or residential...) When possible be specific @ -No Did you speak to anyone other than the patient for history (EMS, parent, family, police, friend...)? What history was obtained from this source @ -No Did you review nursing and triage notes (agree or disagree)? Why? @ -I reviewed and agree with nursing and triage notes Were old charts reviewed (outside hosp., previous admission, EMS record, old EKG, old radiological studies, urgent care reports/EKG's, residential records)? Report findings @ -I compared patient's x-ray today with an old x-ray saw no acute changes. I reviewed lab work today with old lab work. Differential Diagnosis (chest pain, altered mental status, abdominal pain women, abdominal pain men, vaginal bleeding, weakness, fever, dyspnea, syncope, headache, dizziness, GI bleed, back pain, seizure, CVA, palpatations, mental health, musculoskeletal)? @ -Differential Dyspnea: Coronary syndrome, arrhythmia, tamponade, asthma, COPD, pulmonary embolism, pneumonia, pneumothorax, pulmonary effusion, anaphylaxis, diabetic ketoacidosis, flailed chest, pulmonary contusion, diaphragmatic rupture, anemia, neuromuscular, this is not meant to be an all-inclusive list. EKG interpreted by me (3pts min.). @ -As above X-rays interpreted by me (1pt min.). @ -Chest x-ray shows no acute abnormality CT interpreted by me (1pt min.). @ -CT of the chest shows no acute abnormality or PE. CT of the chest shows multiple cysts in the liver and a large cyst on the left kidney but no acute findings. U/S interpreted by me (1pt. min.). @ -None done What testing was considered but not performed or refused? (CT, X-rays, U/S, labs)? Why? @ -None What meds were considered but not given or refused? Why? @ -None Did you discuss the management of the patient with other professionals (pro fessionals i.e. , PA, ASSISTANT MANAGER OF OPERATIONS, lab, RT, psych nurse, social security specialist, field worker, teacher, port patrol officer, caser in)? Give summary @ -[facility] the patient wrote admitting orders Was smoking cessation discussed for >3mins.? @ -No Was critical care preformed (if so, how long)? @ -No Were there social determinants of health that impacted care today? How? (Homelessness, low income, unemployed, alcoholism, drug addiction, transportation, low edu. Level, literacy, decrease access to med. care, longterm, rehab)? @ -No Was there de-escalation of care discussed even if they declined (Discuss DNR or withdrawal of care, Hospice)? DNR status @ -No What co-morbidities impacted this encounter? (DM, HTN, Smoking, COPD, CAD, Cancer, CVA, ARF, Chemo, Hep., AIDS, mental health diagnosis, sleep apnea, morbid obesity)? @ -None Was patient admitted / discharged? Hospital course, mention meds given and route, prescriptions, significant lab abnormalities, going to OR and other pertinent info. @ -Patient continued to feel short of breath while in the emergency department having some lower chest discomfort. No source for the symptoms was found h [facility] Undiagnosed new problem with uncertain prognosis? @ -No Drug Therapy requiring intensive monitoring for toxicity (Heparin, Nitro, Insuli n, Cardizem)? @ -No Were any procedures done? @ -No Diagnosis/symptom? @ -Chest pain Acute, or Chronic, or Acute on Chronic? @ -Acute Uncomplicated (without systemic symptoms) or Complicated (systemic symptoms)? @ -Complicated Side effects of treatment? @ -No Exacerbation, Progression, or Severe Exacerbation? @ -No Poses a threat to life or bodily function? How? (Chest pain, [place], [place], pneumonia, PE, COPD, DKA, ARF, appy, cholecystitis, CVA, Diverticulitis, Homicidal, Suicidal, threat to staff... and all critical care pts) @ -Yes this could be an IL which could lead to morbidity or mortality Diagnosis/symptom? @ -Dyspnea Acute, or Chronic, or Acute on Chronic? @ -Acute Uncomplicated (without systemic symptoms) or Complicated (systemic symptoms)? @ -Complicated Side effects of treatment? @ -None Exacerbation, Progression, or Severe Exacerbation] @ -No Poses a threat to life or bodily function? @ -This can lead to hypoxia and endorgan dysfunction - Lab Data Result diagrams: 09/08/23 16:51 09/08/23 16:51 Lab Results 09/08/23 09/08/23 09/08/23 Range/Units 16:51 16:51 16:51 WBC 5.4 (3.8-10.6) k/uL RBC 5.56 H (3.80-5.40) m/uL Hgb 16.0 (11.4-16.0) gm/dL Hct 49.2 H (34.0-46.0) % MCV 88.6 (80.0-100.0) fL MCH 28.8 (25.0-35.0) pg MCHC 32.5 (31.0-37.0) g/dL RDW 13.5 (11.5-15.5) % Plt Count 118 L (150-450) k/uL MPV 9.5 Neutrophils % 62 % Lymphocytes % 26 % Monocytes % 7 % Eosinophils % 3 % Basophils % 1 % Neutrophils # 3.3 (1.3-7.7) k/uL Lymphocytes # 1.4 (1.0-4.8) k/uL Monocytes # 0.4 (0-1.0) k/uL Eosinophils # 0.2 (0-0.7) k/uL Basophils # 0.0 (0-0.2) k/uL PT (10.0-12.5) sec INR (<1.2) APTT (22.0-30.0) sec D-Dimer (<0.60) mg/L FEU Sodium 138 (137-145) mmol/L Potassium 5.0 (3.5-5.1) mmol/L Chloride 108 H (98-107) mmol/L Carbon Dioxide 16 L (22-30) mmol/L Anion Gap 14 mmol/L BUN 27 H (7-17) mg/dL Creatinine 0.92 (0.52-1.04) mg/dL Est GFR (CKD-EPI)AfAm 67 (>60 ml/min/1.73 sqM) Est GFR (CKD-EPI)NonAf 58 (>60 ml/min/1.73 sqM) Glucose 207 H (74-99) mg/dL Plasma Lactic Acid Parish (0.7-2.0) mmol/L Calcium 9.5 (8.4-10.2) mg/dL Total Bilirubin 1.1 (0.2-1.3) mg/dL AST 40 H (14-36) U/L ALT 21 (4-34) U/L Alkaline Phosphatase 73 (38-126) U/L Troponin I 0.024 (0.000-0.034) ng/mL Total Protein 7.8 (6.3-8.2) g/dL Albumin 4.4 (3.5-5.0) g/dL Lipase (23-300) U/L Influenza Type A (PCR) (Not Detectd) Influenza Type B (PCR) (Not Detectd) RSV (PCR) (Not Detectd) SARS-CoV-2 (PCR) (Not Detectd) 09/08/23 09/08/23 09/08/23 Range/Units 16:51 17:24 17:54 WBC (3.8-10.6) k/uL RBC (3.80-5.40) m/uL Hgb (11.4-16.0) gm/dL Hct (34.0-46.0) % MCV (80.0-100.0) fL MCH (25.0-35.0) pg MCHC (31.0-37.0) g/dL RDW (11.5-15.5) % Plt Count (150-450) k/uL MPV Neutrophils % % Lymphocytes % % Monocytes % % Eosinophils % % Basophils % % Neutrophils # (1.3-7.7) k/uL Lymphocytes # (1.0-4.8) k/uL Monocytes # (0-1.0) k/uL Eosinophils # (0-0.7) k/uL Basophils # (0-0.2) k/uL PT 10.1 (10.0-12.5) sec INR 0.9 (<1.2) APTT 24.6 (22.0-30.0) sec D-Dimer 1.32 H (<0.60) mg/L FEU Sodium (137-145) mmol/L Potassium (3.5-5.1) mmol/L Chloride (98-107) mmol/L Carbon Dioxide (22-30) mmol/L Anion Gap mmol/L BUN (7-17) mg/dL Creatinine (0.52-1.04) mg/dL Est GFR (CKD-EPI)AfAm (>60 ml/min/1.73 sqM) Est GFR (CKD-EPI)NonAf (>60 ml/min/1.73 sqM) Glucose (74-99) mg/dL Plasma Lactic Acid Parish (0.7-2.0) mmol/L Calcium (8.4-10.2) mg/dL Total Bilirubin (0.2-1.3) mg/dL AST (14-36) U/L ALT (4-34) U/L Alkaline Phosphatase (38-126) U/L Troponin I (0.000-0.034) ng/mL Total Protein (6.3-8.2) g/dL Albumin (3.5-5.0) g/dL Lipase 92 (23-300) U/L Influenza Type A (PCR) Not Detected (Not Detectd) Influenza Type B (PCR) Not Detected (Not Detectd) RSV (PCR) Not Detected (Not Detectd) SARS-CoV-2 (PCR) Not Detected (Not Detectd) 09/08/23 Range/Units 19:17 WBC (3.8-10.6) k/uL RBC (3.80-5.40) m/uL Hgb (11.4-16.0) gm/dL Hct (34.0-46.0) % MCV (80.0-100.0) fL MCH (25.0-35.0) pg MCHC (31.0-37.0) g/dL RDW (11.5-15.5) % Plt Count (150-450) k/uL MPV Neutrophils % % Lymphocytes % % Monocytes % % Eosinophils % % Basophils % % Neutrophils # (1.3-7.7) k/uL Lymphocytes # (1.0-4.8) k/uL Monocytes # (0-1.0) k/uL Eosinophils # (0-0.7) k/uL Basophils # (0-0.2) k/uL PT (10.0-12.5) sec INR (<1.2) APTT (22.0-30.0) sec D-Dimer (<0.60) mg/L FEU Sodium (137-145) mmol/L Potassium (3.5-5.1) mmol/L Chloride (98-107) mmol/L Carbon Dioxide (22-30) mmol/L Anion Gap mmol/L BUN (7-17) mg/dL Creatinine (0.52-1.04) mg/dL Est GFR (CKD-EPI)AfAm (>60 ml/min/1.73 sqM) Est GFR (CKD-EPI)NonAf (>60 ml/min/1.73 sqM) Glucose (74-99) mg/dL Plasma Lactic Acid Parish 1.2 (0.7-2.0) mmol/L Calcium (8.4-10.2) mg/dL Total Bilirubin (0.2-1.3) mg/dL AST (14-36) U/L ALT (4-34) U/L Alkaline Phosphatase (38-126) U/L Troponin I (0.000-0.034) ng/mL Total Protein (6.3-8.2) g/dL Albumin (3.5-5.0) g/dL Lipase (23-300) U/L Influenza Type A (PCR) (Not Detectd) Influenza Type B (PCR) (Not Detectd) RSV (PCR) (Not Detectd) SARS-CoV-2 (PCR) (Not Detectd) Disposition Clinical Impression: Chest pain, Dyspnea Disposition: ADMITTED IP TO THIS HOSP Referrals: Umesh Boston MD [Primary Care Provider] - 1-2 days Time of Disposition: 20:16
[2023-09-08 17:09] LABS: Basophils % (A) 1 %; Eosinophils # (A) 0.2 k/uL (0-0.7); Eosinophils % (A) 3 %; HCT 49.2 % (34.0-46.0); Lymphocytes # (A) 1.4 k/uL (1.0-4.8); Lymphocytes % (A) 26 %; MCH 28.8 pg (25.0-35.0); MCHC 32.5 g/dL (31.0-37.0); MCV 88.6 fL (80.0-100.0); Mean Platelet Volume 9.5; Monocytes # (A) 0.4 k/uL (0-1.0); Monocytes % (A) 7 %; Neutrophils # (A) 3.3 k/uL (1.3-7.7); Neutrophils % (A) 62 %; Platelet Count 118 k/uL (150-450); RBC 5.56 m/uL (3.80-5.40); RDW 13.5 % (11.5-15.5); WBC 5.4 k/uL (3.8-10.6)
[2023-09-08 17:10] LABS: ALT 21 U/L (4-34); AST 40 U/L (14-36); African American GFR (CKD) 67 (>60 ml/min/1.73 sqM); Albumin 4.4 g/dL (3.5-5.0); Anion Gap 14 mmol/L; Blood Urea Nitrogen 27 mg/dL (7-17); Calcium 9.5 mg/dL (8.4-10.2); Carbon Dioxide 16 mmol/L (22-30); Chloride 108 mmol/L (98-107); Glucose 207 mg/dL (74-99); Non-African American GFR(CKD) 58 (>60 ml/min/1.73 sqM); Sodium 138 mmol/L (137-145); Total Bilirubin 1.1 mg/dL (0.2-1.3); Total Protein 7.8 g/dL (6.3-8.2)
[2023-09-08 17:11] LABS: Alkaline Phosphatase 73 U/L (38-126)
--- NOTE | 2023-09-08 18:07 | XR ---
EXAMINATION TYPE: XR chest 2V DATE OF EXAM: 09/08/2023 COMPARISON: 04/16/2023 HISTORY: Shortness of breath TECHNIQUE: Frontal and lateral views of the chest are obtained. FINDINGS: Scattered senescent parenchymal changes noted. Hyperinflation compatible with COPD. No evidence for infiltrate. No evidence for atelectasis. Chronic elevation right hemidiaphragm. Heart size is stable. Mediastinal structures are stable and grossly unremarkable. No evidence for hilar prominence. Degenerative changes dorsal spine. IMPRESSION: 1. No evidence for acute pulmonary disease.
[2023-09-08 18:28] LABS: INR 0.9 (<1.2); Partial Thromboplastin Time 24.6 sec (22.0-30.0); Prothrombin Time 10.1 sec (10.0-12.5)
[2023-09-08] MEDS ORDERED: NITROGLYCERIN SL TABS 0.4 MG TAB SUBLINGUAL PRN (20:17)
[2023-09-08] MEDS: ASPIRIN 81 MG PO STA (20:35)
[2023-09-08 23:05] LABS: Glucose,Whole Blood 111 mg/dL (70-110)
--- NOTE | 2023-09-08 23:27 | CT ---
EXAMINATION TYPE: CT chest angio for PE CT DLP: 1600 mGycm, Automated exposure control for dose reduction was used. DATE OF EXAM: 09/08/2023 7:46 PM COMPARISON: Chest x-ray same day CLINICAL INDICATION:Female, 82 years old with history of Difficulty breathing; JAYDON, high dimer with a bdominal pain. TECHNIQUE/CONTRAST: CTA scan of the thorax is performed with IV Contrast, patient injected with 80 mL of Isovue 370, MIP images are created and reviewed these are created on a separate workstation.. FINDINGS: There is adequate contrast bolus and timing. PULMONARY ARTERIES: There is no evidence for a filling defect within the pulmonary vasculature to sug gest acute pulmonary embolism. Pulmonary trunk is upper normal in size. Trunk measures 2.9 CM. HEART: Normal heart size.Mild coronary artery calcification. No appreciable pericardial effusion. AORTA: Moderate atherosclerotic calcifications of the aorta and branches. Ascending aorta is 3.3 CM, descending is 2 CM. Mostly calcified plaque results in stenoses of the proximal brachiocephalic rohan ry and left common carotid artery, estimated to be under 50% diameter. There is mixed, mostly calcifi ed plaque at the origin of the left subclavian artery resulting in stenosis which is estimated to be about 60-70%, and a couple of centimeters more distally there is additional calcified and eccentric s oft plaque which again narrows the lumen about 50-60%. LOWER NECK: No significant findings. Thyroid appears somewhat small. MEDIASTINUM: No enlarged lymph nodes are seen. There are a few lymph nodes seen with short axis up to 0.8 cm, likely reactive. Similarly, there is mildly prominent hilar soft tissues suggesting lymphati cs without measurable adenopathy. SOFT TISSUES/LYMPH NODES: Unremarkable soft tissues. No axillary adenopathy. LUNGS/ PLEURA: Chronically elevated right hemidiaphragm with linear and bandlike opacities at the rig ht lung base compatible with chronic atelectasis. There is a long curvilinear density seen along the right lung base which follows the curvature of the diaphragm, believed to likely represent a tiny enh ancing vessel. Lungs otherwise appear mildly inflated with mild emphysematous changes noted. Mild sca ttered presumed scarring. No lung consolidation, significant nodule, or mass. No pleural effusion or pneumothorax. AIRWAY: Central airways are patent. Mild bronchiectatic changes, mostly in the lower lobes. MUSCULOSKELETAL: Generalized osteopenia. Moderate to severe degenerative changes of the bilateral kaelyn ulders. Moderate degenerative changes of the visualized spine with partially imaged fusion changes in the cervical region which extend to the T1 level. Mild to moderate apex right curvature in the mid-u pper thoracic spine. An acute abnormality is not identified. UPPER ABDOMEN: Please see separate CT abdomen report for findings. IMPRESSION: 1. No evidence of pulmonary embolism. 2. No other acute chest process demonstrated. 3. Chronically elevated right hemidiaphragm, with chronic right basilar atelectasis. 4. Moderate aortic atherosclerosis, involving the branch vessels from the arch with stenoses greatest in the proximal left subclavian artery estimated to be about 60-70%. Correlate for any symptoms of s ubclavian steal. 5. Thyroid appears somewhat small, this can be correlated with thyroid function tests as warranted.
--- NOTE | 2023-09-08 23:51 | CT ---
EXAMINATION TYPE: CT abdomen pelvis w con CT DLP: 1600 mGycm, Automated exposure control for dose reduction was used. DATE OF EXAM: 09/08/2023 7:45 PM COMPARISON: CT abdomen 05/06/2023 CLINICAL INDICATION:Female, 82 years old with history of Abdominal pain; JAYDON, high dimer with abdomin al pain. TECHNIQUE: Axial CT of the abdomen and pelvis. Sagittal and coronal reformats were created on a [employer] workstation. Contrast used:80 mL of Isovue 370 with IV Contrast, (none if empty) Oral contrast used: without Oral Contrast (none if empty) FINDINGS: LOWER CHEST: Please see separate CT chest for findings ABDOMEN LIVER: Several hypodense structures throughout the liver appear fairly circumscribed on postcontrast exam, and similar in appearance to the prior study. These are compatible with cysts. GALLBLADDER AND BILE DUCTS: Stable appearance of the gallbladder, again with a hooklike configuration of the neck to the cystic duct. No calcified gallstones or pericholecystic inflammation. Biliary apul e is nondilated. PANCREAS: Mild fatty infiltration without acute finding SPLEEN: Unremarkable. ADRENAL GLANDS: Unremarkable. KIDNEYS AND URETERS: Kidneys enhance symmetrically. Bilobed cyst or 2 adjacent cysts in the left kidn ey, the smaller in the parapelvic region and the larger exophytic posteriorly from the inferior pole measuring up to 5.4 cm. These are stable. Right kidney is stable and unremarkable. No evidence of hyd ronephrosis bilaterally. PELVIS BLADDER: Grossly unremarkable for the degree of under distention. REPRODUCTIVE: Uterus not seen, likely surgically absent. Ovaries are also not identified. ABDOMEN & PELVIS STOMACH AND BOWEL: Stomach and small bowel are nondistended, no evidence of obstruction. Cecum is s omewhat low lying, dipping into the pelvis. Gas filled appendix is seen arising from the cecum and co ursing laterally into the left pelvis, without evidence of inflammation. There is moderate stool thro ughout the colon with postoperative changes related to colonic colonic anastomosis in the sigmoid reg ion. No evidence of obstruction or focal inflammatory changes. Scattered diverticula. PERITONEUM/RETROPERITONEUM: No evidence of pneumoperitoneum or free fluid. VASCULATURE: Moderate to severe atherosclerotic calcifications are present throughout the abdominal a raymon and its branches. No evidence of aortic aneurysm. Mild narrowing of the proximal celiac, SMA, ri ght renal artery. Mild/moderate narrowing of the proximal left renal artery. EVELYN is enhancing. Additi onal calcifications continue into the iliac arterial trees, with narrowing of the proximal common rupa acs judged to be under 50%. Portal veins are enhancing. Splenic vein is patent. Patent renal veins. Normal IVC. LYMPH NODES: No enlarged nodes. SOFT TISSUE/ABDOMINAL WALL: No acute or concerning abnormality. Small fat containing umbilical region hernia and right inguinal hernia. MUSCULOSKELETAL: Generalized osteopenia. No destructive bony lesion or acute fracture is seen. Mild d egenerative changes of the hips. Remote healed fracture deformity of the right inferior pubic ramus. Moderate degenerative changes of the SI joints and pubic symphysis. Moderate multilevel degenerative changes of the lumbar spine. There are postoperative changes with posterior fusion hardware at L3 and L4 with prosthetic disc interspace material. Mild degenerative anterolisthesis of L2 on L3 and L3 on L4. Mild reversal of the normal lordosis from L3-L5. Hardware appears intact and normally positioned . Radiodensity at the L4-5 disc space and extending to the right inferior vertebral body L4, could re present some sort of cement or calcification. IMPRESSION: 1. No distinct acute abnormality demonstrated to explain abdominal pain. 2. Other chronic and likely incidental findings, as described above.
[2023-09-09] MEDS: NITROGLYCERIN OINT 1 INCH/GM PACKET TOPICAL SCH (00:17)
[2023-09-09] MEDS ORDERED: ALBUTEROL NEBULIZED 2.5 MG/3 ML INHALATION PRN (03:54)
[2023-09-09] MEDS ORDERED: IBUPROFEN 800 MG TAB PO PRN (03:54)
[2023-09-09] MEDS ORDERED: DEXTROSE 50% SYRINGE 50 ML IVP PRN ×2 (03:55)
[2023-09-09 05:03] LABS: Appearance,Urine Clear (Clear); Bacteria,Urine Moderate /hpf; Bilirubin,Urine Negative (Negative); Blood,Urine Negative (Negative); Color,Urine Colorless; Glucose,Urine (UA) Negative (Negative); Ketones,Urine Negative (Negative); Leukocyte Esterase,Urine Small (Negative); Mucus,Urine Rare /hpf; Nitrite,Urine Negative (Negative); PH, Urine 5.5 (5.0-8.0); Protein,Urine Negative (Negative); RBC,Urine 1 /hpf (0-5); Squamous Epithelial Cell,Urine 2 /hpf (0-4); Urobilinogen,Urine <2.0 mg/dL (<2.0); WBC,Urine 17 /hpf (0-5)
[2023-09-09 05:45] LABS: Specific Gravity,Urine 1.047 (1.001-1.035)
[2023-09-09] MEDS: LEVOTHYROXINE 50 MCG TAB PO SCH (06:07)
--- NOTE | 2023-09-09 07:29 | P.HPIM ---
History of Present Illness This is a pleasant 82 years old female with past medical history of diabetes mellitus, hypertension, hypothyroidism, hiatal hernia, chronic back pain diverticular disease. She presents because of nonspecific symptoms in the epigastric area which she describes as (movement) and discomfort in the epigastric area which states the whole day. She denies specific chest pain other than the symptoms. No specific precipitating or alleviating factors. Her matrix inspector is Dr. Mcfadden She states she has some chronic difficulty breathing with exertion and she followed up with Dr. Boland before. But no coughing. She denies vomiting diarrhea or abdominal pain She states that she has been urinating more than usual over the last 2 days ab out 6-7 times which is normal before like before. Her urine sample looks abnormal however patient does not want to take antibiotics and she wants to wait for any pills till after she has cardiac test or cleared by matrix inspector as she is currently n.p.o. She is she denies smoking alcohol or illicit drugs. She is afebrile and hemodynamically stable CBC is unremarkable except for mild thrombocytopenia. INR 0.9 Lipase is negative at 92 BMP is unremarkable, creatinine 0.9, liver enzymes not elevated D-dimer is high today at 1.32 Troponin x 3 are negative Urine analysis slightly abnormal Influenza A and type B, RSV, SARS (coronavirus) are and detected EKG shows sinus rhythm at [address]-T changes CT of the abdomen and pelvis is reviewed, does not show specific abnormalities to explain patient's symptoms. She has multiple liver lesions which is the same as previous suspicious for cyst and she has moderate stool in the colon. CTA of the chest is negative for acute pulmonary embolism Chest x-ray is negative for acute process. Review of Systems Review of systems CONSTITUTIONAL: No fever, no malaise, no fatigue. HEENT: No recent visual problems or hearing problems. Denied any sore throat. CARDIOVASCULAR: No orthopnea, PND, no palpitations, no syncope. PULMONARY: No shortness of breath, no cough, no hemoptysis. GASTROINTESTINAL: No diarrhea, no nausea, no vomiting, no abdominal pain. Normoactive bowel sounds. NEUROLOGICAL: No headaches, no weakness, no numbness. HEMATOLOGICAL: Denies any bleeding or petechiae. -GENITOURINARY: as above MUSCULOSKELETAL/RHEUMATOLOGICAL: Denies any joint pain, swelling, or any muscle pain. ENDOCRINE: Denies any polyuria or polydipsia. Past Medical History Past Medical History: Diabetes Mellitus, Hypertension, Musculoskeletal Disorder, Pneumonia, Skin Disorder, Thyroid Disorder Additional Past Medical History / Comment(s): Type 2 diabetes, hypothyroidism, MINOR Hiatal Hernia. HX Shingles. CHRONIC BACK PAIN. 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 PAST ACTUARIAL INTERN HISTORY: She has no history of STDs. kidney stones History of Any Multi-Drug Resistant Organisms: None Reported Past Surgical History: Back Surgery, Bowel Resection, Heart Catheterization Additional Past Surgical History / Comment(s): Mult Back Surgeries-Back, Neck Fusions. Epidural Spinal INJ. Levi Cataracts. Laparotomy for ruptured diverticulum, YOGESH'S PROC, COLOSTOMY 08/23/16. REPAIR PARALYZED DIAPHRAGM 11/14/16. reversal of colostomy in february,. neck surgery 11-11-17 done in [place]. Colonoscopy ?date. EGD upper endoscopy 2019 Past Anesthesia/Blood Transfusion Reactions: Previous Problems w/ Anesthesia Additional Past Anesthesia/Blood Transfusion Reaction / Comment(s): Stopped breathing POST-OP R/T ALLERGY TO PAIN RX, "over medicated" - had to get narcan. Past Psychological History: Anxiety Smoking Status: Former smoker Past Alcohol Use History: None Reported Past Drug Use History: None Reported - Past Family History Brother(s) Family Medical History: Cancer Additional Family Medical History / Comment(s): Colon cancer. Maternal Aunt Family Medical History: Cancer Additional Family Medical History / Comment(s): Breast cancer. Medications and Allergies Home Medications Medication Instructions Recorded Confirmed Type Aspirin 81 mg PO DAILY@1400 11/20/13 09/08/23 History Temazepam [Restoril] 30 mg PO HS 09/20/16 09/08/23 History Insulin Glargine,Hum.rec.anlog 40 units SQ HS 02/05/17 09/08/23 History [Toujeo Solostar] Ibuprofen [Motrin] 600 mg PO HS 06/09/17 09/08/23 History Insulin Lispro [humaLOG Kwikpen] See Protocol SQ ACHS 06/09/17 09/08/23 History Metoprolol Succinate [Toprol XL] 50 mg PO DAILY@1400 06/09/17 09/08/23 History Albuterol Nebulized [Ventolin 2.5 mg INHALATION RT-QID PRN 09/08/23 09/08/23 History Nebulized] Biotin 1000mg 1,000 mg PO DAILY@1400 09/08/23 09/08/23 History Cholecalciferol [Vitamin D3 (25 50 mcg PO DAILY@1400 09/08/23 09/08/23 History Mcg = 1000 Iu)] Ibuprofen [Motrin] 800 mg PO DAILY PRN 09/08/23 09/08/23 History Levothyroxine Sodium [Synthroid] 50 mcg PO DAILY 09/08/23 09/08/23 History Allergies Allergy/AdvReac Type Severity Reaction Status Date / Time meperidine HCl [From Demerol] Allergy Severe Anaphylaxis Verified 09/08/23 18:23 shellfish derived [Shellfish] Allergy Severe Anaphylaxis Verified 09/08/23 18:23 morphine Allergy Intermediate SEVERE Verified 09/08/23 18:23 ITCHING, HARD TO BREATH cefuroxime axetil Allergy Unknown Verified 09/08/23 18:23 [From Ceftin] codeine Allergy Abdominal Verified 09/08/23 18:23 Pain, DYSPNEA hydrocodone bitartrate Allergy Abdominal Verified 09/08/23 18:23 [From Lortab] Pain, DYSPNEA Influenza Virus Vaccines Allergy Unknown Verified 09/08/23 18:23 lisinopril Allergy Anxiety, Verified 09/08/23 18:23 CAN'T FUNCTION lorazepam [From Ativan] Allergy DILUSIONS Verified 09/08/23 18:23 milk Allergy Diarrhea Verified 09/08/23 18:23 oxycodone HCl [From Percocet] Allergy DYSPNEA, Verified 09/08/23 18:23 ITCHING erythromycin base AdvReac Nausea Verified 09/08/23 18:23 [From E-Mycin] fentanyl AdvReac FELT Verified 09/08/23 18:23 DRUGGED FOR LONG TIME Physical Exam Vitals: Vital Signs Temp Pulse Resp BP Pulse Ox 09/09/23 06:13 72 18 152/76 96 09/09/23 03:34 82 16 129/69 95 09/09/23 00:25 76 16 145/76 95 09/08/23 23:02 19 93 L 09/08/23 22:03 70 142/84 09/08/23 16:20 97.8 F 98 20 155/91 97 Intake and Output 09/08/23 09/09/23 09/09/23 22:59 06:59 14:59 Other: Weight 77.111 kg -GENERAL: The patient is alert and oriented x3, not in any acute distress. Obese HEENT: Pupils are round and equally reacting to light. EOMI. No scleral icterus. No conjunctival pallor. Normocephalic, atraumatic. No pharyngeal erythema. No thyromegaly. CARDIOVASCULAR: S1 and S2 present. No murmurs, rubs, or gallops. PULMONARY: Chest is clear to auscultation, no wheezing , no crackles. ABDOMEN: Soft, nontender, nondistended, normoactive bowel sounds. No palpable organomegaly. MUSCULOSKELETAL: No joint swelling or deformity. EXTREMITIES: No cyanosis, clubbing, or pedal edema. NEUROLOGICAL: Gross neurological examination did not reveal any focal deficits. SKIN: No rashes. no petechiae. Results CBC & Chem 7: 09/08/23 16:51 09/08/23 16:51 Labs: Abnormal Lab Results - Last 24 Hours (Table) 08/09/23 09/08/23 09/08/23 Range/Units 01:00 16:51 16:51 RBC 5.56 H (3.80-5.40) m/uL Hct 49.2 H (34.0-46.0) % Plt Count 118 L (150-450) k/uL D-Dimer (<0.60) mg/L FEU Chloride 108 H (98-107) mmol/L Carbon Dioxide 16 L (22-30) mmol/L BUN 27 H (7-17) mg/dL Glucose 207 H (74-99) mg/dL POC Glucose (mg/dL) (70-110) mg/dL AST 40 H (14-36) U/L Ur Specific [place] 1.047 H (1.001-1.035) Ur Leukocyte Esterase Small H (Negative) Urine WBC 17 H (0-5) /hpf Urine Bacteria Moderate H (None) /hpf Urine Mucus Rare H (None) /hpf 09/08/23 09/08/23 Range/Units 17:54 23:03 RBC (3.80-5.40) m/uL Hct (34.0-46.0) % Plt Count (150-450) k/uL D-Dimer 1.32 H (<0.60) mg/L FEU Chloride (98-107) mmol/L Carbon Dioxide (22-30) mmol/L BUN (7-17) mg/dL Glucose (74-99) mg/dL POC Glucose (mg/dL) 111 H (70-110) mg/dL AST (14-36) U/L Ur Specific [place] (1.001-1.035) Ur Leukocyte Esterase (Negative) Urine WBC (0-5) /hpf Urine Bacteria (None) /hpf Urine Mucus (None) /hpf Assessment and Plan Assessment: Epigastric discomfort, rule out cardiac causes Increased frequency of urination, could be due to uncontrolled diabetes versus UTI Mild thrombocytopenia Diabetes mellitus Hypertension Obesity with BMI of 31.1 Plan: Check echocardiogram Cardiology consult Continue with aspirin Patient also on metoprolol Check hemoglobin A1c Patient does not want to start antibiotic for now. She has multiple drug allergies. Will going to repeat urine analysis and bladder scan and discussed with the staff. Labs and medication were reviewed.. Continue same treatment. Continue with symptomatic treatment. Resume home medication. Monitor labs and vitals. DVT and GI prophylaxis. Further recommendations as per clinical course of the patient DVT prophylaxis: Subcutaneous heparin GI Prophylaxis: Pepcid Prognosis is guarded
[2023-09-09 07:51] LABS: Appearance,Urine Clear (Clear); Bacteria,Urine Rare /hpf; Bilirubin,Urine Negative (Negative); Blood,Urine Negative (Negative); Color,Urine Colorless; Glucose,Urine (UA) Negative (Negative); Ketones,Urine Negative (Negative); Leukocyte Esterase,Urine Negative (Negative); Mucus,Urine Rare /hpf; Nitrite,Urine Positive (Negative); PH, Urine 5.5 (5.0-8.0); Protein,Urine Negative (Negative); RBC,Urine <1 /hpf (0-5); Specific Gravity,Urine 1.025 (1.001-1.035); Squamous Epithelial Cell,Urine 1 /hpf (0-4); Urobilinogen,Urine <2.0 mg/dL (<2.0); WBC,Urine 3 /hpf (0-5)
[2023-09-09] MEDS ORDERED: DOBUTamine DRIP for NUC MED 500 MG in DEXTROSE/WATER 1 250ML.BAG IV PRN (08:26)
[2023-09-09 08:39] LABS: Glucose,Whole Blood 155 mg/dL (70-110)
[2023-09-09] MEDS: INSULIN ASPART (NovoLOG) 100 UNIT/ML VIAL SQ SCH (08:44)
[2023-09-09] MEDS: FAMOTIDINE 20 MG/2 ML VIAL IV SCH (08:45)
[2023-09-09] MEDS: HEPARIN SODIUM,PORCINE 5,000 UNIT/ML 1 ML VIAL SQ SCH (08:45)
[2023-09-09] MEDS: ASPIRIN 81 MG PO SCH (08:47)
[2023-09-09] MEDS ORDERED: ASPIRIN 325 MG TAB PO SCH (09:00)
--- NOTE | 2023-09-09 09:15 | CA ---
Transthoracic Echo Report Name: Nisha Calix Age: 82 Gender: F : 1940 Exam Date: 09/09/2023 07:57 Exam Location: [place] [facility] Ht (in): 62 Wt (lb): 170 Ordering Physician: Ector Bell MD Attending/Referring Phys: Tube Turner Polly Campuzano RCS Procedure CPT: Indications: dyspnea, chest pain Cardiac Hx: Technical Quality: Very technically difficult study Contrast 1: Definity Total Dose (mL): 2 Contrast 2: Total Dose (mL): MEASUREMENTS (Male / Female) Normal Values 2D ECHO LV Diastolic Diameter PLAX 3.9 cm 4.2 - 5.9 / 3.9 - 5.3 cm LV Systolic Diameter PLAX 3.0 cm IVS Diastolic Thickness 0.7 cm 0.6 - 1.0 / 0.6 - 0.9 cm LVPW Diastolic Thickness 1.0 cm 0.6 - 1.0 / 0.6 - 0.9 cm LV Relative Wall Thickness 0.4 RV Internal Dim ED PLAX 2.1 cm LVOT Diameter 2.1 cm LV Diastolic Volume MOD BP 57.6 cm??? 67 - 155 / 56 - 104 cm??? LV Systolic Volume MOD BP 20.8 cm??? 22 - 58 / 19 - 49 cm??? LV Ejection Fraction MOD BP 63.8 % >= 55 % LV Cardiac Index MOD BP 1476.7 cm???/min???m??? LV Diastolic Volume MOD 4C 60.0 cm??? LV Systolic Volume MOD 4C 24.4 cm??? LV Ejection Fraction MOD 4C 59.4 % LV Cardiac Index MOD 4C 1434.6 cm???/min???m??? LV Diastolic Length 4C 5.9 cm LV Systolic Length 4C 5.6 cm LV Diastolic Volume MOD 2C 53.4 cm??? LV Systolic Volume MOD 2C 15.9 cm??? LV Ejection Fraction MOD 2C 70.2 % LV Cardiac Index MOD 2C 1506.7 cm???/min???m??? LV Diastolic Length 2C 6.2 cm LV Systolic Length 2C 4.9 cm Ascending Aorta Diameter 3.4 cm DOPPLER AV Peak Velocity 118.1 cm/s AV Peak Gradient 5.6 mmHg AV Mean Velocity 75.9 cm/s AV Mean Gradient 2.8 mmHg AV Velocity Time Integral 26.3 cm LVOT Peak Velocity 100.7 cm/s LVOT Peak Gradient 4.1 mmHg LVOT Velocity Time Integral 18.8 cm LVOT Stroke Volume 66.0 cm??? LVOT Stroke Volume Index 37.0 ml/m??? LVOT Cardiac Index 2654.2 cm???/min???m??? AV Area Cont Eq vti 2.5 cm??? AV Area Cont Eq pk 3.0 cm??? Mitral E Point Velocity 34.4 cm/s Mitral A Point Velocity 54.4 cm/s Mitral E to A Ratio 0.6 MV Deceleration Time 179.3 ms MV E' Velocity 3.7 cm/s Mitral E to MV E' Ratio 9.3 PV Peak Velocity 80.1 cm/s PV Peak Gradient 2.6 mmHg FINDINGS Left Ventricle Left ventricular ejection fraction is estimated at 60-65 %. Left ventricular cavity size normal. Left ventricular wall thickness normal. No obvious regional wall motion abnormalities. Right Ventricle Normal right ventricular size and function. Unable to estimate right ventricular systolic function. Right Atrium Normal right atrial size. Left Atrium Normal left atrial size. Mitral Valve Structurally normal mitral valve. No mitral stenosis, regurgitation or prolapse. Aortic Valve Aortic valve not well visualized. No aortic valve stenosis or regurgitation. Tricuspid Valve Structurally normal tricuspid valve. No tricuspid stenosis. No tricuspid regurgitation. Pulmonic Valve Pulmonic valve not well visualized. No pulmonic stenosis. No pulmonic regurgitation. Pericardium No pericardial effusion. Aorta Normal size aortic root and proximal ascending aorta. CONCLUSIONS Left ventricular ejection fraction 60-65% No mitral regurgitation No tricuspid regurgitation No pericardial effusion Previewed by: Dr. Philip Benz DO (Electronically Signed) Final Date: 09 September 2023 09:14
--- NOTE | 2023-09-09 10:28 | P.CRDCN ---
History of Present Illness History of present illness: HISTORY OF PRESENT ILLNESS: This is a 82-year-old female with a past medical history significant for hypertension, hyperlipidemia, diabetes, and former nicotine dependence. Patient follows in the office with Dr. Murray. We have been asked to see the patient in consultation for chest pain. Patient examined at the bedside. Patient states that yesterday she felt " something moving in her chest". She states that she was not having significant chest pain or pressure but just did not feel right. She states she also had an episode like this a few days ago. She also reports that she feels more pale than usual. She states that she has had a cough with mucus production since August. She currently denies any shortness of breath. Vital signs are stable. DIAGNOSTICS: - EKG reveals sinus mechanism with nonspecific ST-T wave changes - Chest xray negative for acute process - CTA: Negative for pulmonary embolism - Laboratory data: WBC 5.4. Hemoglobin 16.0. Platelet count 118. D-dimer 1.32. Sodium 138. Potassium 5.0. BUN 27. Creatinine 0.92. Troponin negative x 3 - Current home cardiac medications include aspirin 81 mg daily, metoprolol succinate 50 mg daily - Most recent echocardiogram obtained in November 2021 revealing normal EF, mild MR, mild TR, mild AR -Patient underwent Lexiscan stress test in November 2021 which was negative for ischemia - Cardiac catheterization history: March 2015 revealing normal EF and minimal CAD REVIEW OF SYSTEMS: At the time of my exam: CONSTITUTIONAL: Denies fever or chills. HEENT: Denies blurred vision, vision changes, or eye pain. Denies hemoptysis CARDIOVASCULAR: Denies chest pain. Denies orthopnea. Denies PND. Denies palpitations RESPIRATORY: Denies shortness of breath. GASTROINTESTINAL: Denies abdominal pain. Denies nausea or vomiting. HEMATOLOGIC: Denies bleeding disorders. GENITOURINARY: Denies any blood in urine. SKIN: Denies pruitis. Denies rash. PHYSICAL EXAM: VITAL SIGNS: Reviewed. GENERAL: Well-developed in no acute distress. HEENT: Head is normocephalic. Pupils are equal, round. Sclerae anicteric. Mucous membranes of the mouth are moist. Neck supple. No JVD or thyromegaly LUNGS: Respirations even and unlabored. Lungs essentially clear to auscultation bilaterally. HEART: Regular rate and rhythm. S1 and S2 heard. ABDOMEN: Soft. Nondistended. Nontender. EXTREMITIES: Normal range of motion. No clubbing or cyanosis. Peripheral pulses intact. No lower extremity edema NEUROLOGIC: Awake and alert. Oriented x 3. ASSESSMENT: Chest pain, atypical, troponin negative x 3 Hypertension Hyperlipidemia Diabetes Former nicotine dependence PLAN: An acute coronary event has been ruled out Obtain 2D echo to assess cardiac structure and function Resume home cardiac medications Patient to undergo dobutamine stress test today Further recommendations pending patient course Nurse practitioner note has been reviewed by physician. Signing provider agrees with the documented findings, assessment, and plan of care documented by GUIDE VISITOR as a scribe. Past Medical History Past Medical History: Diabetes Mellitus, Hypertension, Musculoskeletal Disorder, Pneumonia, Skin Disorder, Thyroid Disorder Additional Past Medical History / Comment(s): Type 2 diabetes, hypothyroidism, MINOR Hiatal Hernia. HX Shingles. CHRONIC BACK PAIN. 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 PAST SHRINKER HISTORY: She has no history of STDs. kidney stones History of Any Multi-Drug Resistant Organisms: None Reported Past Surgical History: Back Surgery, Bowel Resection, Heart Catheterization Additional Past Surgical History / Comment(s): Mult Back Surgeries-Back, Neck Fusions. Epidural Spinal INJ. Levi Cataracts. Laparotomy for ruptured diverticulum, YOGESH'S PROC, COLOSTOMY 08/23/16. REPAIR PARALYZED DIAPHRAGM 11/14/16. reversal of colostomy in february,. neck surgery 11-11-17 done in [place]. Colonoscopy ?date. EGD upper endoscopy 2019 Past Anesthesia/Blood Transfusion Reactions: Previous Problems w/ Anesthesia Additional Past Anesthesia/Blood Transfusion Reaction / Comment(s): Stopped breathing POST-OP R/T ALLERGY TO PAIN RX, "over medicated" - had to get narcan. Past Psychological History: Anxiety Smoking Status: Former smoker Past Alcohol Use History: None Reported Past Drug Use History: None Reported - Past Family History Brother(s) Family Medical History: Cancer Additional Family Medical History / Comment(s): Colon cancer. Maternal Aunt Family Medical History: Cancer Additional Family Medical History / Comment(s): Breast cancer. Medications and Allergies Home Medications Medication Instructions Recorded Confirmed Type Aspirin 81 mg PO DAILY@1400 11/20/13 09/08/23 History Temazepam [Restoril] 30 mg PO HS 09/20/16 09/08/23 History Insulin Glargine,Hum.rec.anlog 40 units SQ HS 02/05/17 09/08/23 History [Maryan Lassiterveronicayamileth] Ibuprofen [Motrin] 600 mg PO HS 06/09/17 09/08/23 History Insulin Lispro [humaLOG Kwikpen] See Protocol SQ ACHS 06/09/17 09/08/23 History Metoprolol Succinate [Toprol XL] 50 mg PO DAILY@1400 06/09/17 09/08/23 History Albuterol Nebulized [Ventolin 2.5 mg INHALATION RT-QID PRN 09/08/23 09/08/23 History Nebulized] Biotin 1000mg 1,000 mg PO DAILY@1400 09/08/23 09/08/23 History Cholecalciferol [Vitamin D3 (25 50 mcg PO DAILY@1400 09/08/23 09/08/23 History Mcg = 1000 Iu)] Ibuprofen [Motrin] 800 mg PO DAILY PRN 09/08/23 09/08/23 History Levothyroxine Sodium [Synthroid] 50 mcg PO DAILY 09/08/23 09/08/23 History Allergies Allergy/AdvReac Type Severity Reaction Status Date / Time meperidine HCl [From Demerol] Allergy Severe Anaphylaxis Verified 09/08/23 18:23 shellfish derived [Shellfish] Allergy Severe Anaphylaxis Verified 09/08/23 18:23 morphine Allergy Intermediate SEVERE Verified 09/08/23 18:23 ITCHING, HARD TO BREATH cefuroxime axetil Allergy Unknown Verified 09/08/23 18:23 [From Ceftin] codeine Allergy Abdominal Verified 09/08/23 18:23 Pain, DYSPNEA hydrocodone bitartrate Allergy Abdominal Verified 09/08/23 18:23 [From Lortab] Pain, DYSPNEA Influenza Virus Vaccines Allergy Unknown Verified 09/08/23 18:23 lisinopril Allergy Anxiety, Verified 09/08/23 18:23 CAN'T FUNCTION lorazepam [From Ativan] Allergy DILUSIONS Verified 09/08/23 18:23 milk Allergy Diarrhea Verified 09/08/23 18:23 oxycodone HCl [From Percocet] Allergy DYSPNEA, Verified 09/08/23 18:23 ITCHING erythromycin base AdvReac Nausea Verified 09/08/23 18:23 [From E-Mycin] fentanyl AdvReac FELT Verified 09/08/23 18:23 DRUGGED FOR LONG TIME Physical Exam Vitals: Vital Signs Temp Pulse Resp BP Pulse Ox 09/09/23 07:44 97 09/09/23 06:13 72 18 152/76 96 09/09/23 03:34 82 16 129/69 95 09/09/23 00:25 76 16 145/76 95 09/08/23 23:02 19 93 L 09/08/23 22:03 70 142/84 09/08/23 16:20 97.8 F 98 20 155/91 97 Intake and Output 09/08/23 09/09/23 09/09/23 22:59 06:59 14:59 Output Total 39 Balance -39 Output: Post Void Residual 39 Other: Weight 77.111 kg Results 09/08/23 16:51 09/08/23 16:51 Cardiac Enzymes 09/08/23 09/08/23 09/08/23 Range/Units 16:51 16:51 20:43 AST 40 H (14-36) U/L Troponin I 0.024 <0.012 (0.000-0.034) ng/mL 09/09/23 Range/Units 00:01 AST (14-36) U/L Troponin I <0.012 (0.000-0.034) ng/mL Coagulation 09/08/23 Range/Units 17:54 PT 10.1 (10.0-12.5) sec APTT 24.6 (22.0-30.0) sec CBC 09/08/23 Range/Units 16:51 WBC 5.4 (3.8-10.6) k/uL RBC 5.56 H (3.80-5.40) m/uL Hgb 16.0 (11.4-16.0) gm/dL Hct 49.2 H (34.0-46.0) % Plt Count 118 L (150-450) k/uL Comprehensive Metabolic Panel 09/08/23 Range/Units 16:51 Sodium 138 (137-145) mmol/L Potassium 5.0 (3.5-5.1) mmol/L Chloride 108 H (98-107) mmol/L Carbon Dioxide 16 L (22-30) mmol/L BUN 27 H (7-17) mg/dL Creatinine 0.92 (0.52-1.04) mg/dL Glucose 207 H (74-99) mg/dL Calcium 9.5 (8.4-10.2) mg/dL AST 40 H (14-36) U/L ALT 21 (4-34) U/L Alkaline Phosphatase 73 (38-126) U/L Total Protein 7.8 (6.3-8.2) g/dL Albumin 4.4 (3.5-5.0) g/dL Current Medications Generic Name Dose Route Start Last Admin Trade Name Freq PRN Reason Stop Dose Admin Albuterol Sulfate 2.5 mg 09/09/23 03:54 Albuterol Nebulized 2.5 Mg/3 Ml INHALATION RT-QID PRN Shortness Of Breath Aspirin 325 mg 09/09/23 09:00 Aspirin 325 Mg Tab PO DAILY [facility] Cholecalciferol 50 mcg 09/09/23 14:00 Cholecalciferol 25 Mcg (1000 Iu) Tablet PO DAILY@1400 [facility] Dextrose/Water 25 ml 09/09/23 03:55 Dextrose 50% Syringe 50 Ml IVP PER PROTOCOL PRN Hypoglycemia Protocol Dextrose/Water 50 ml 09/09/23 03:55 Dextrose 50% Syringe 50 Ml IVP PER PROTOCOL PRN Hypoglycemia Protocol Famotidine 20 mg 09/09/23 09:00 Famotidine 20 Mg/2 Ml Vial IV Q24HR [facility] Heparin Sodium (Porcine) 5,000 unit 09/09/23 09:00 Heparin Sodium,Porcine 5,000 Unit/Ml 1 Ml Vial SQ Q12HR [facility] Ibuprofen 600 mg 09/09/23 21:00 Ibuprofen 600 Mg Tab PO HS [facility] Ibuprofen 800 mg 09/09/23 03:54 Ibuprofen 800 Mg Tab PO DAILY PRN Pain Insulin Aspart 0 unit 09/09/23 07:30 Insulin Aspart (Novolog) 100 Unit/Ml Vial SQ ACHS [facility] Protocol Insulin Detemir 40 unit 09/09/23 21:00 Insulin Detemir (Levemir) 100 Unit/Ml Syr SQ [facility] Levothyroxine Sodium 50 mcg 09/09/23 06:30 09/09/23 06:07 Levothyroxine 50 Mcg Tab PO 50 mcg DAILY@0630 [facility] Administration Metoprolol Succinate 50 mg 09/09/23 14:00 Metoprolol Succinate (Er) 50 Mg Tab.Er.24h PO DAILY@1400 [facility] Nitroglycerin 0.4 mg 09/08/23 20:17 Nitroglycerin Sl Tabs 0.4 Mg Tab SUBLINGUAL Q5M PRN Chest Pain Nitroglycerin 1 inch 09/09/23 00:00 09/09/23 06:08 Nitroglycerin Oint 1 Inch/Gm Packet TOPICAL Not Given Q6HR ARELY Intake and Output 09/08/23 09/09/23 09/09/23 22:59 06:59 14:59 Output Total 39 Balance -39 Output: Post Void Residual 39 Other: Weight 77.111 kg 09/08/23 16:51 09/08/23 16:51
[2023-09-09 11:30] LABS: Chol/HDL Ratio 6.44 Ratio; LDL Cholesterol,Calculated 143.7 mg/dL (0.0-131.0)
[2023-09-09] MEDS ORDERED: DOBUTamine DRIP for NUC MED 500 MG/250 ML BAG IV ONE (12:15)
[2023-09-09] MEDS ORDERED: BIOTIN 1000 MG PO SCH (14:00)
[2023-09-09 14:23] LABS: Glucose,Whole Blood 139 mg/dL (70-110)
[2023-09-09] MEDS: CHOLECALCIFEROL 25 MCG (1000 IU) TABLET PO SCH (14:36)
[2023-09-09] MEDS: METOPROLOL SUCCINATE (ER) 50 MG TAB.ER.24H PO SCH (14:36)
--- NOTE | 2023-09-09 14:42 | CA ---
Dobutamine Stress Echocardiogram Report Nisha Calix Age: 82 Gender: F : 1940 Exam Date: 09/09/2023 11:58 Exam Location: [facility] Ordering Physician: Rachel Christie Referring Physician: [id number] Drawing Machine Operator: Justice Mccarthy Technologist: Ht (in): 60 Wt (lb): 167 Procedure CPT: Indication: Chest Pain ICD-9 Codes: Rhythm: Patient History: Cardiac Medications: SEE CHART Medications in past 24 hours: Contrast: N/A Total Dose (mL): NA Stress Results Protocol: Dobutamine Peak Dose (???g/kg/min): 30 Duration (min:sec): Atropine:(mg) Target HR: 117 Double Product: 23303 Resting HR: 95 Resting BP: 156 / 87 Peak HR: 133 Peak BP: 139 / 72 Max Predicted HR: 138 96 % Max Predicted HR Stress Summary: BP Response: Reason for Termination: Exceeded target heart rate (85% max predicted) Cardiac Symptoms: NO SYMPTOMS ECG Analysis Resting EKG: Stress EKG: Arrhythmia: Echo Analysis Base Echo Analysis: Low Echo Anaylsis: Peak Echo Analysis: Recovery Echo: MEASUREMENTS (Male/Female) Normal Values CONCLUSIONS Patient underwent dobutamine stress echo with infusion of dobutamine. Stress EKG portion: At baseline patient's EKG showed normal sinus rhythm, normal axis no significant ST or T wave abnormalities. At peak dobutamine infusion, EKG showed minimal nondiagnostic 0.5mm ST depressions. Stress echo portion: 2-D echocardiogram was performed in the parasternal long, personal short, apical 2 and apical four-chamber views at rest, low-dose, peak infusion and in recovery. At baseline, echocardiogram showed left ventricular ejection fraction 55% without wall motion abnormalities. With peak infusion, echocardiogram shows improvement in left ventricular ejection fraction, increase contractility, decrease in left ventricular end systolic dimension without wall motion abnormalities consistent with a normal response to dobutamine. Conclusions: 1. Normal stress EKG and echo response to dobutamine infusion without any evidence of inducible ischemia. Dr. Philip Benz DO (Electronically Signed) Final Date: 09 September 2023 14:40
[2023-09-09 16:27] VITALS: RESP 20
[2023-09-09 17:04] VITALS: BP 117/74; PULSE 89
[2023-09-09] MEDS ORDERED: INSULIN DETEMIR (LEVEMIR) 100 UNIT/ML SYR SQ SCH (21:00)
[2023-09-09] MEDS ORDERED: IBUPROFEN 600 MG TAB PO SCH (21:00)
== END 2023-09-09 16:45 | disposition home or self-care (01) ==
LOC: EC 16:19 → 3SCARD 20:18
PROVIDERS: ADMIT Hospitalist; ATTEND Hospitalist
DX: R07.89 Other chest pain (principal); R10.13 Epigastric pain; R06.02 Shortness of breath; R06.00 Dyspnea, unspecified; R53.1 Weakness; E11.9 Type 2 diabetes mellitus without complications; M81.0 Age-related osteoporosis without current pathological fracture; E78.5 Hyperlipidemia, unspecified; E66.9 Obesity, unspecified; K44.9 Diaphragmatic hernia without obstruction or gangrene; G89.29 Other chronic pain; D69.6 Thrombocytopenia, unspecified; M54.9 Dorsalgia, unspecified; F41.9 Anxiety disorder, unspecified; I10 Essential (primary) hypertension; E03.9 Hypothyroidism, unspecified; Z79.899 Other long term (current) drug therapy; Z79.82 Long term (current) use of aspirin; Z79.4 Long term (current) use of insulin; Z79.890 Hormone replacement therapy; Z88.5 Allergy status to narcotic agent; Z88.8 Allergy status to other drugs, medicaments and biological substances; Z87.891 Personal history of nicotine dependence; Z98.61 Coronary angioplasty status; Z11.52 Encounter for screening for COVID-19; Z68.31 Body mass index [BMI] 31.0-31.9, adult; Z87.01 Personal history of pneumonia (recurrent)
CPT/HCPCS: 96372; 96374; 99285; 51798; 36415; 93005; 93351; 85379; 80061; 80053; 83605; 83690; 83735; 84484 ×2; 85025; 85610; 85730; 81001 ×2; 87040; 87636; 71046; 71275; 74177; G0378 ×2; C8929; J1250; J1644; J3490; Q9957; Q9967; 93306

== ENCOUNTER → 2023-12-17 | Outpatient (CLI) | payer MEDICARE ==
--- NOTE | 2023-12-17 16:31 | MR ---
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 COMPARISON: 11/19/2023. TECHNIQUE: Multi planar, multi sequence imaging was performed utilizing: T1-weighted, T2-weighted, a nd turbo inversion recovery imaging of the lumbar spine. IV Contrast: cc . (None if empty) FINDINGS: Alignment: The lumbar vertebral bodies have preserved heights and alignment. Cord: The conus medullaris and the distal spinal cord appear unremarkable with regards to their signa l intensity and morphology. Bones/Discs: Multilevel degeneration changes with straightening of the spine. Fixation hardware all [address] Laminectomy changes in the posterior subcutaneous tissues are present. Discectomy at L3-L4 is present. T12-L1: No evidence of significant spinal canal stenosis or neural foraminal stenosis. L1-L2: No evidence of significant spinal canal stenosis or neural foraminal stenosis. L2-L3: Disc bulge and facet joint arthropathy result in mild to moderate spinal canal and moderate bi lateral neural foraminal stenosis. L3-L4: Susceptibility artifact limits evaluation at this level. Spinal canal is patent there is moder ate bilateral neural foraminal stenosis present. L4-L5: Susceptibility artifact limits evaluation at this level. The spinal canal and neural foramen a ppear patent. L5-S1: The disc has a rounded posterior morphology without significant spinal canal stenosis. Facet j oint arthropathy with mild bilateral neural foraminal stenosis. No significant spinal canal or neural foraminal stenosis in the remainder of the visualized levels. Other findings: None. IMPRESSION: 1. Postsurgical changes without evidence of significant spinal canal stenosis. Spinal canal stenosis worse with Mild to moderate spinal canal stenosis at L2-L3. 2. No definitive evidence of disc herniation. 3. Multilevel disc degeneration with associated osteoarthritic changes. Neural foraminal stenosis wo rse at L3-L4 with moderate to severe left and moderate bilateral neural foraminal stenosis
== END | disposition home or self-care (01) ==
LOC: RADMRIMAIN 09:59
PROVIDERS: ATTEND Orthopaedic Surgery
DX: M47.816 Spondylosis without myelopathy or radiculopathy, lumbar region (principal); M51.16 Intervertebral disc disorders with radiculopathy, lumbar region; M48.061 Spinal stenosis, lumbar region without neurogenic claudication; M99.73 Connective tissue and disc stenosis of intervertebral foramina of lumbar region
CPT/HCPCS: 72148

== ENCOUNTER 2024-05-08 14:35 | Emergency (ER) | payer MEDICARE ==
--- NOTE | 2024-05-08 15:19 | ED ---
General Adult HPI - General Stated complaint: Fever Time Seen by Provider: 05/08/24 14:55 Source: patient, family, RN notes reviewed Mode of arrival: ambulatory Limitations: no limitations - History of Present Illness Initial comments: 83-year-old female presents emergency department chief complaint shortness of breath, cough congestion and weakness. Patient states symptoms started several days ago states her is currently in the hospital states that started when she was visiting. Patient states she just feels very weak, feels rundown. She has a slight productive cough she states that she has been doing some treatments without any relief. Patient denies any abdominal pain - Related Data Home Medications Medication Instructions Recorded Confirmed Aspirin 81 mg PO DAILY@139911/20/13 09/08/23 Temazepam [Restoril] 30 mg PO HS 09/20/16 09/08/23 Insulin Glargine,Hum.rec.anlog 40 units SQ HS 02/05/17 09/08/23 [Toujeo Solostar] Insulin Lispro [humaLOG Kwikpen] See Protocol SQ ACHS 06/09/17 09/08/23 Metoprolol Succinate [Toprol XL] 50 mg PO DAILY@139906/09/17 09/08/23 Albuterol Nebulized [Ventolin 2.5 mg INHALATION RT-QID PRN 09/08/23 09/08/23 Nebulized] Biotin 1000mg 1,000 mg PO DAILY@139909/08/23 09/08/23 Cholecalciferol [Vitamin D3 (25 50 mcg PO DAILY@139909/08/23 09/08/23 Mcg = 1000 Iu)] Levothyroxine Sodium [Synthroid] 50 mcg PO DAILY 09/08/23 09/08/23 Previous Rx's Medication Instructions Recorded Famotidine [Pepcid] 20 mg PO DAILY 7 Days #7 tablet 09/09/23 Benzonatate [Tessalon Perles] 100 mg PO TID PRN #15 capsule 05/08/24 Nirmatrelvir/Ritonavir [Paxlovid 1 each PO DIRECTED #1 pack 05/08/24 300-100 mg Dose Pack] Allergies Allergy/AdvReac Type Severity Reaction Status Date / Time meperidine HCl [From Demerol] Allergy Severe Anaphylaxis Verified 05/08/24 15:10 shellfish derived [Shellfish] Allergy Severe Anaphylaxis Verified 05/08/24 15:10 morphine Allergy Intermediate SEVERE Verified 05/08/24 15:10 ITCHING, HARD TO BREATH cefuroxime axetil Allergy Unknown Verified 05/08/24 15:10 [From Ceftin] codeine Allergy Abdominal Verified 05/08/24 15:10 Pain, DYSPNEA hydrocodone bitartrate Allergy Abdominal Verified 05/08/24 15:10 [From Lortab] Pain, DYSPNEA Influenza Virus Vaccines Allergy Unknown Verified 05/08/24 15:10 lisinopril Allergy Anxiety, Verified 05/08/24 15:10 CAN'T FUNCTION lorazepam [From Ativan] Allergy DILUSIONS Verified 05/08/24 15:10 milk Allergy Diarrhea Verified 05/08/24 15:10 oxycodone HCl [From Percocet] Allergy DYSPNEA, Verified 05/08/24 15:10 ITCHING erythromycin base AdvReac Nausea Verified 05/08/24 15:10 [From E-Mycin] fentanyl AdvReac FELT Verified 05/08/24 15:10 DRUGGED FOR LONG TIME Review of Systems ROS Statement: Those systems with pertinent positive or pertinent negative responses have been documented in the HPI. ROS Other: All systems not noted in ROS Statement are negative. Past Medical History Past Medical History: Diabetes Mellitus, Hypertension, Musculoskeletal Disorder, Pneumonia, Skin Disorder, Thyroid Disorder Additional Past Medical History / Comment(s): Type 2 diabetes, hypothyroidism, MINOR Hiatal Hernia. HX Shingles. CHRONIC BACK PAIN. 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 kidney stones History of Any Multi-Drug Resistant Organisms: None Reported Past Surgical History: Back Surgery, Bowel Resection, Heart Catheterization Additional Past Surgical History / Comment(s): Mult Back Surgeries-Back, Neck Fusions. Epidural Spinal INJ. Levi Cataracts. Laparotomy for ruptured diverticulum, YOGESH'S PROC, COLOSTOMY 08/23/16. REPAIR PARALYZED DIAPHRAGM 11/14/16. reversal of colostomy in february,. neck surgery 11-11-17 done in [place]. Colonoscopy ?date. EGD upper endoscopy 2019 Past Anesthesia/Blood Transfusion Reactions: Previous Problems w/ Anesthesia Additional Past Anesthesia/Blood Transfusion Reaction / Comment(s): Stopped breathing POST-OP R/T ALLERGY TO PAIN RX, "over medicated" - had to get narcan. Past Psychological History: Anxiety Smoking Status: Former smoker Past Alcohol Use History: None Reported Past Drug Use History: None Reported - Past Family History Brother(s) Family Medical History: Cancer Additional Family Medical History / Comment(s): Colon cancer. Maternal Aunt Family Medical History: Cancer Additional Family Medical History / Comment(s): Breast cancer. General Exam Limitations: no limitations General appearance: alert, in no apparent distress Head exam: Present: atraumatic, normocephalic, normal inspection Eye exam: Present: normal appearance, PERRL, EOMI. Absent: scleral icterus, conjunctival injection, periorbital swelling ENT exam: Present: normal exam, normal oropharynx, mucous membranes moist Neck exam: Present: normal inspection, full ROM. Absent: tenderness, meningismus, lymphadenopathy Respiratory exam: Present: rhonchi. Absent: normal lung sounds bilaterally, respiratory distress, wheezes, rales, stridor Cardiovascular Exam: Present: regular rate, normal rhythm, normal heart sounds. Absent: systolic murmur, diastolic murmur, rubs, gallop, clicks GI/Abdominal exam: Present: soft, normal bowel sounds. Absent: distended, tenderness, guarding, rebound, rigid Course Vital Signs 05/08/24 15:10 Temperature 99.1 F Pulse Rate 103 H Respiratory 20 Rate Blood Pressure 161/78 O2 Sat by Pulse 94 L Oximetry Medical Decision Making - Medical Decision Making Was pt. sent in by a medical professional or institution (, PA, PERSONNEL ASSISTANT, urgent care, hospital, or alf...) When possible be specific @ -No Did you speak to anyone other than the patient for history (EMS, parent, family, police, friend...)? What history was obtained from this source @ -No Did you review nursing and triage notes (agree or disagree)? Why? @ -I reviewed and agree with nursing and triage notes Were old charts reviewed (outside hosp., previous admission, EMS record, old EKG, old radiological studies, urgent care reports/EKG's, alf records)? Report findings @ -No old charts were reviewed Differential Diagnosis (chest pain, altered mental status, abdominal pain women, abdominal pain men, vaginal bleeding, weakness, fever, dyspnea, syncope, headache, dizziness, GI bleed, back pain, seizure, CVA, palpatations, mental health, musculoskeletal)? @ -Differential Dyspnea: Coronary syndrome, arrhythmia, tamponade, asthma, COPD, pulmonary embolism, pneumonia, pneumothorax, pulmonary effusion, anaphylaxis, diabetic ketoacidosis, flailed chest, pulmonary contusion, diaphragmatic rupture, anemia, neuromuscular, this is not meant to be an all-inclusive list. EKG interpreted by me (3pts min.). @ -As above X-rays interpreted by me (1pt min.). @ -Chest x-ray shows no acute cardiopulmonary processes elevated diaphragm chronic nature CT interpreted by me (1pt min.). @ -None done U/S interpreted by me (1pt. min.). @ -None done What testing was considered but not performed or refused? (CT, X-rays, U/S, labs)? Why? @ -None What meds were considered but not given or refused? Why? @ -None Did you discuss the management of the patient with other professionals (professionals i.e. , PA, PERSONNEL ASSISTANT, lab, RT, psych nurse, social research assistant, pediatric neuropsychologist, teacher, mounted police officer, disease case manager)? Give summary @ -No Was smoking cessation discussed for >3mins.? @ -No Was critical care preformed (if so, how long)? @ -No Were there social determinants of health that impacted care today? How? (Homelessness, low income, unemployed, alcoholism, drug addiction, transportation, low edu. Level, literacy, decrease access to med. care, prison, rehab)? @ -No Was there de-escalation of care discussed even if they declined (Discuss DNR or withdrawal of care, Hospice)? DNR status @ -No What co-morbidities impacted this encounter? (DM, HTN, Smoking, COPD, CAD, Cancer, CVA, ARF, Chemo, Hep., AIDS, mental health diagnosis, sleep apnea, morbid obesity)? @ -None Was patient admitted / discharged? Hospital course, mention meds given and route, prescriptions, significant lab abnormalities, going to OR and other pertinent info. @ -Discharge patient is COVID-19 positive patient has no signs distress, not hypoxic patient will be discharged with Paxlovid as patient requested. Undiagnosed new problem with uncertain prognosis? @ -No Drug Therapy requiring intensive monitoring for toxicity (Heparin, Nitro, Insulin, Cardizem)? @ -No Were any procedures done? @ -No Diagnosis/symptom? @ -COVID-19 Acute, or Chronic, or Acute on Chronic? @ -Acute Uncomplicated (without systemic symptoms) or Complicated (systemic symptoms)? @ -Complicated Side effects of treatment? @ -No Exacerbation, Progression, or Severe Exacerbation? @ -No Poses a threat to life or bodily function? How? (Chest pain, USA, OR, pneumonia, PE, COPD, DKA, ARF, appy, cholecystitis, CVA, Diverticulitis, Homicidal, Suicidal, threat to staff... and all critical care pts) @ -No - Lab Data Result diagrams: 05/08/24 15:30 05/08/24 15:30 Lab Results 05/08/24 05/08/24 05/08/24 Range/Units 15:30 15:30 15:30 WBC 4.0 (3.8-10.6) k/uL RBC 5.00 (3.80-5.40) m/uL Hgb 14.1 (11.4-16.0) gm/dL Hct 44.2 (34.0-46.0) % MCV 88.5 (80.0-100.0) fL MCH 28.2 (25.0-35.0) pg MCHC 31.9 (31.0-37.0) g/dL RDW 13.4 (11.5-15.5) % Plt Count 139 L (150-450) k/uL MPV 7.9 Neutrophils % 76 % Lymphocytes % 9 % Monocytes % 10 % Eosinophils % 2 % Basophils % 0 % Neutrophils # 3.1 (1.3-7.7) k/uL Lymphocytes # 0.4 L (1.0-4.8) k/uL Monocytes # 0.4 (0-1.0) k/uL Eosinophils # 0.1 (0-0.7) k/uL Basophils # 0.0 (0-0.2) k/uL PT 10.3 (10.0-12.5) sec INR 0.9 (<1.2) APTT 25.2 (22.0-30.0) sec Sodium 138 (137-145) mmol/L Potassium 4.5 (3.5-5.1) mmol/L Chloride 107 (98-107) mmol/L Carbon Dioxide 22 (22-30) mmol/L Anion Gap 9 mmol/L BUN 17 (7-17) mg/dL Creatinine 0.87 (0.52-1.04) mg/dL Est GFR (CKD-EPI)AfAm 71 (>60 ml/min/1.73 sqM) Est GFR (CKD-EPI)NonAf 62 (>60 ml/min/1.73 sqM) Glucose 228 H (74-99) mg/dL Plasma Lactic Acid Parish (0.7-2.0) mmol/L Calcium 8.9 (8.4-10.2) mg/dL Total Bilirubin 0.5 (0.2-1.3) mg/dL AST 30 (14-36) U/L ALT 17 (4-34) U/L Alkaline Phosphatase 80 (38-126) U/L Troponin I (0.000-0.034) ng/mL NT-Pro-B Natriuret Pep 246 pg/mL Total Protein 6.6 (6.3-8.2) g/dL Albumin 3.9 (3.5-5.0) g/dL Influenza Type A (PCR) (Not Detectd) Influenza Type B (PCR) (Not Detectd) RSV (PCR) (Not Detectd) SARS-CoV-2 (PCR) (Not Detectd) 05/08/24 05/08/24 05/08/24 Range/Units 15:30 15:30 15:30 WBC (3.8-10.6) k/uL RBC (3.80-5.40) m/uL Hgb (11.4-16.0) gm/dL Hct (34.0-46.0) % MCV (80.0-100.0) fL MCH (25.0-35.0) pg MCHC (31.0-37.0) g/dL RDW (11.5-15.5) % Plt Count (150-450) k/uL MPV Neutrophils % % Lymphocytes % % Monocytes % % Eosinophils % % Basophils % % Neutrophils # (1.3-7.7) k/uL Lymphocytes # (1.0-4.8) k/uL Monocytes # (0-1.0) k/uL Eosinophils # (0-0.7) k/uL Basophils # (0-0.2) k/uL PT (10.0-12.5) sec INR (<1.2) APTT (22.0-30.0) sec Sodium (137-145) mmol/L Potassium (3.5-5.1) mmol/L Chloride (98-107) mmol/L Carbon Dioxide (22-30) mmol/L Anion Gap mmol/L BUN (7-17) mg/dL Creatinine (0.52-1.04) mg/dL Est GFR (CKD-EPI)AfAm (>60 ml/min/1.73 sqM) Est GFR (CKD-EPI)NonAf (>60 ml/min/1.73 sqM) Glucose (74-99) mg/dL Plasma Lactic Acid [place] 1.7 (0.7-2.0) mmol/L Calcium (8.4-10.2) mg/dL Total Bilirubin (0.2-1.3) mg/dL AST (14-36) U/L ALT (4-34) U/L Alkaline Phosphatase (38-126) U/L Troponin I <0.012 (0.000-0.034) ng/mL NT-Pro-B Natriuret Pep pg/mL Total Protein (6.3-8.2) g/dL Albumin (3.5-5.0) g/dL Influenza Type A (PCR) Not Detected (Not Detectd) Influenza Type B (PCR) Not Detected (Not Detectd) RSV (PCR) Not Detected (Not Detectd) SARS-CoV-2 (PCR) Detected A (Not Detectd) Disposition Clinical Impression: COVID-19 Disposition: HOME SELF-CARE Condition: Stable Instructions (If sedation given, give patient instructions): COVID-19 (Coronavirus Disease 2019) (ED) Additional Instructions: Please return to the Emergency Department if symptoms worsen or any other concerns. Prescriptions: Nirmatrelvir/Ritonavir [Paxlovid 300-100 mg Dose Pack] 1 each PO DIRECTED #1 pack Benzonatate [Tessalon Perles] 100 mg PO TID PRN #15 capsule PRN Reason: Cough Is patient prescribed a controlled substance at d/c from ED?: No Referrals: Umesh Boston MD [Primary Care Provider] - 1-2 days Time of Disposition: 16:41
--- NOTE | 2024-05-08 15:44 | XR ---
EXAMINATION TYPE: XR chest 2V DATE OF EXAM: 05/08/2024 3:37 PM COMPARISON: Previous history of 03/03/2024. CLINICAL INDICATION: Female, 83 years old with history of difficulty breathing; [employer] TECHNIQUE: XR chest 2V Frontal and lateral views of the chest. FINDINGS: Mild primarily. Asymmetric elevation of the right hemidiaphragm with right lung volume loss. Mild pulmonary vascular congestive changes. No sizable pleural effusion. No pneumothorax. No acute focal consolidation. Partially visualized cervical spinal fusion hardware. IMPRESSION: Suha and pulmonary vascular congestive changes. Asymmetric elevation of the right hemidiaphragm. [facility], , 05/08/2024 3:41 PM
[2024-05-08 15:51] LABS: Basophils % (A) 0 %; Eosinophils # (A) 0.1 k/uL (0-0.7); Eosinophils % (A) 2 %; HCT 44.2 % (34.0-46.0); HGB 14.1 gm/dL (11.4-16.0); Lymphocytes # (A) 0.4 k/uL (1.0-4.8); Lymphocytes % (A) 9 %; MCH 28.2 pg (25.0-35.0); MCHC 31.9 g/dL (31.0-37.0); MCV 88.5 fL (80.0-100.0); Mean Platelet Volume 7.9; Monocytes # (A) 0.4 k/uL (0-1.0); Monocytes % (A) 10 %; Neutrophils # (A) 3.1 k/uL (1.3-7.7); Neutrophils % (A) 76 %; Platelet Count 139 k/uL (150-450); RDW 13.4 % (11.5-15.5)
[2024-05-08 16:02] LABS: ALT 17 U/L (4-34); AST 30 U/L (14-36); African American GFR (CKD) 71 (>60 ml/min/1.73 sqM); Albumin 3.9 g/dL (3.5-5.0); Alkaline Phosphatase 80 U/L (38-126); Anion Gap 9 mmol/L; Blood Urea Nitrogen 17 mg/dL (7-17); Calcium 8.9 mg/dL (8.4-10.2); Carbon Dioxide 22 mmol/L (22-30); Chloride 107 mmol/L (98-107); Glucose 228 mg/dL (74-99); Non-African American GFR(CKD) 62 (>60 ml/min/1.73 sqM); Potassium 4.5 mmol/L (3.5-5.1); Sodium 138 mmol/L (137-145); Total Bilirubin 0.5 mg/dL (0.2-1.3); Total Protein 6.6 g/dL (6.3-8.2)
[2024-05-08 16:03] LABS: INR 0.9 (<1.2); Partial Thromboplastin Time 25.2 sec (22.0-30.0); Prothrombin Time 10.3 sec (10.0-12.5)
[2024-05-08 16:09] LABS: NT-Pro-B-Type Natriuretic Pept 246 pg/mL
[2024-05-08 17:06] VITALS: BP 178/76; PULSE 93; RESP 16; TEMP 99
== END 2024-05-08 17:04 | disposition home or self-care (01) ==
LOC: EC 14:35
DX: U07.1 COVID-19 (principal); Z87.891 Personal history of nicotine dependence; Z88.5 Allergy status to narcotic agent; Z91.013 Allergy to seafood; Z88.8 Allergy status to other drugs, medicaments and biological substances; Z91.011 Allergy to milk products; Z88.6 Allergy status to analgesic agent; Z91.048 Other nonmedicinal substance allergy status
CPT/HCPCS: 36415; 71046; 80053; 83605; 83880; 84484; 85025; 85610; 85730; 87636; 93005; 99285